=== PATIENT | female | born 1985 | race Hispanic/Latino ===

== ENCOUNTER 2019-06-23 13:50 | Emergency (ER) | payer SELFPAY ==
[2019-06-23] MEDS ORDERED: MORPHINE 4 MG/ML SYR ONE (16:09)
[2019-06-23] MEDS ORDERED: ONDANSETRON 4 MG/2 ML VIAL ONE (16:09)
[2019-06-23 16:27] LABS: Absolute Lymphocytes (CBC) 2.5 K/uL (0.7-4.9); Basophils % 1.3 % (0-1.3); Hematocrit 45.7 % (36.0-45.0); Lymphocytes % 31.5 % (15.3-44.8); MPV 9.7 fL (7.6-11.3); RBC Red Blood Cell Count 5.57 M/uL (3.86-4.86)
[2019-06-23 16:46] LABS: ALT/SGPT 32 U/L (12-78); AST/SGOT 22 U/L (15-37); Albumin 3.3 g/dL (3.4-5.0); Alkaline Phosphatase 95 U/L (45-117); BUN Blood Urea Nitrogen 11 mg/dL (7-18); Bicarbonate 26 mmol/L (21-32); Bilirubin Direct < 0.1 mg/dL (0-0.2); Bilirubin Total 0.5 mg/dL (0.2-1.0); Glucose Level 68 mg/dL (74-106); Lipase 116 U/L (73-393); Potassium 4.3 mmol/L (3.5-5.1); Protein, Total 8.3 g/dL (6.4-8.2); Sodium Level 142 mmol/L (136-145)
[2019-06-23 17:33] LABS: Urine Blood 3+ (NEG); Urine Glucose NEGATIVE (NEG)
[2019-06-23 17:34] LABS: Urine Protein 1+ (NEG); Urine pH 6.5 (5.0-7.0)
--- NOTE | 2019-06-23 19:01 | RAD REPORT ---
EXAM DESCRIPTION: US - Pelvis Complete - 06/23/2019 6:43 pm CLINICAL HISTORY: pelvic pain, vaginal bleeding Pelvic pain. COMPARISON: Pelvis Complete dated 08/14/2017 FINDINGS: The uterus is normal in size, shape and echotexture. The uterus measures 9.3 x 7.4 x 6.8 c m. The endometrial stripe measures 12 mm, normal. The right ovary has been surgically removed. The left ovary measures 3.5 x 2.5 x 2.4 cm is unremarkab le. Normal blood flow seen in left ovary. No significant pelvic ascites. IMPRESSION: Unremarkable study status post right oophorectomy.
[2019-06-23] MEDS ORDERED: KETOROLAC 30 MG/ML INJ ONE (19:27)
--- NOTE | 2019-06-23 19:39 | EDPHYS ---
Physician Documentation [facility] Name: Charity Colon Age: 34 yrs Sex: Female : 1985 Arrival Date: 06/23/2019 Time: 13:52 Bed 14 Private MD: ED Physician Geoff Saleh HPI: 06/23 15:36 This 34 yrs old Female presents to ER via Ambulatory with complaints of Back jmm Pain. 15:36 The patient presents with pain that is acute, with no known mechanism of injury. Onset: jmm The symptoms/episode began/occurred gradually, 2 day(s) ago. The pain radiates to the pelvis. Associated signs and symptoms: Pertinent positives: vaginal bleeding. Modifying factors: The patient symptoms are alleviated by nothing, the patient symptoms are aggravated by. This is a 34 year old female with a history of anemia, hypothyroidism, that presents to the ED with complaints of lower back pain which radiates to her pelvis. Patient also complains of vaginal bleeding. Patient states symptoms which a similar normally resolve after a Depo-Provera shot. Denies fever, denies vomiting. . 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 - Social history:: Smoking status: unknown. - Ebola Screening: : Patient negative for fever greater than or equal to 101.5 degrees Fahrenheit, and additional compatible Ebola Virus Disease symptoms. ROS: 15:36 Constitutional: Negative for fever, chills, and weight loss, Cardiovascular: Negative jmm for chest pain, palpitations, and edema, Respiratory: Negative for shortness of breath, cough, wheezing, and pleuritic chest pain. 15:36 Abdomen/GI: Positive for abdominal pain. 15:36 Back: Positive for pain at rest. 15:36 All other systems are negative. Exam: 15:36 Constitutional: This is a well developed, well nourished patient who is awake, alert, jmm and in no acute distress. Head/Face: atraumatic. Eyes: EOMI, no conjunctival erythema appreciated ENT: Moist Mucus Membranes Neck: Trachea midline, Supple Chest/axilla: Normal chest wall appearance and motion. Cardiovascular: Regular rate and rhythm. No edema appreciated Respiratory: Normal respirations, no respiratory distress appreciated Abdomen/GI: Non distended, soft 15:36 Skin: General appearance color normal MS/ Extremity: Moves all extremities, no obvious deformities appreciated, no edema noted to the lower extremities Neuro: Awake and alert, normal gait Psych: Behavior is normal, Mood is normal, Patient is cooperative and pleasant 15:36 Neuro: Orientation: is normal, Mentation: is normal, Memory: is normal. 15:36 Psych: Behavior/mood is pleasant, cooperative. Vital Signs: 13:54 BP 131 / 82; Pulse 75; Resp 17; Temp 97.5; Pulse Ox 97% ; Weight 111.13 kg; Height 5 sv ft. 4 in. (162.56 cm); Pain 8/10; 16:00 BP 121 / 66; Pulse 74; Resp 16 S; Pulse Ox 100% on R/A; jl7 17:58 BP 110 / 69; Pulse 72; Resp 16 S; Pulse Ox 100% on R/A; jl7 19:08 BP 106 / 63; Pulse 56; Resp 16 S; Pulse Ox 100% on R/A; jd3 13:54 Body Mass Index 42.05 (111.13 kg, 162.56 cm) sv MDM: 15:36 Patient medically screened. greg 19:35 Data reviewed: vital signs, nurses notes. Counseling: I had a detailed discussion with greg the patient and/or guardian regarding: the historical points, exam findings, and any diagnostic results supporting the discharge/admit diagnosis, lab results, radiology results, the need for outpatient follow up, to return to the emergency department if symptoms worsen or persist or if there are any questions or concerns that arise at home. ED course: Patient is alert and non toxic in appearance in the ED. Pain is relieved in the ED. Patient denies vaginal discharge. I do not suspect PID or TOA. Patient advised to follow up with PCP and otherwise given strict return precautions. Patient understood and agrees with the plan of care. . 06/23 15:42 Order name: Basic Metabolic Panel [facility] 06/23 15:42 Order name: CBC with Diff [facility] 06/23 15:42 Order name: Creatinine for Radiology [facility] 06/23 15:42 Order name: Hepatic Function [facility] 06/23 15:42 Order name: Lipase [facility] 06/23 16:37 Order name: Creatinine (Radiology Only); Complete Time: 16:40 EDMS 06/23 16:47 Order name: Basic Metabolic Panel; Complete Time: 16:47 EDMS 06/23 16:47 Order name: Liver (Hepatic) Function; Complete Time: 16:47 [facility] 06/23 16:47 Order name: Lipase; Complete Time: 16:47 [facility] 06/23 16:48 Order name: CBC with Automated Diff; Complete Time: 16:49 [facility] 06/23 17:04 Order name: Urine Dipstick--Ancillary (enter results) 06/23 17:04 Order name: Urine --Ancillary (enter results) 06/23 17:34 Order name: Urine --Ancillary; Complete Time: 17:39 [facility] 06/23 17:34 Order name: Urine Dipstick-Ancillary; Complete Time: 17:39 [facility] 06/23 15:42 Order name: IV Saline Lock; Complete Time: 16:05 [facility] 06/23 15:42 Order name: Labs collected and sent; Complete Time: 16:05 [facility] 06/23 15:42 Order name: Urine Dipstick-Ancillary (obtain specimen); Complete Time: 16:05 [facility] 06/23 15:42 Order name: Urine Test (obtain specimen); Complete Time: 16:05 [facility] 06/23 16:47 Order name: US Pelvis Complete [facility] 06/23 19:10 Order name: US; Complete Time: 19:29 EDMS Administered Medications: 16:20 Drug: morphine 4 mg Route: IVP; Site: right antecubital; jl7 16:45 Follow up: Response: No adverse reaction; Pain is decreased jl7 16:20 Drug: Zofran 4 mg Route: IVP; Site: right antecubital; jl7 16:45 Follow up: Response: No adverse reaction jl7 19:29 Drug: TORadol 30 mg Route: IVP; Site: right antecubital; jd3 19:51 Follow up: Response: No adverse reaction jd3 Disposition: 06/24 08:48 Co-signature as Attending Physician, Geoff Saleh MD I agree with the assessment and kdr plan of care. Disposition: 06/23/19 19:38 Discharged to Home. Impression: Pelvic and perineal pain, Abnormal uterine and vaginal bleeding, unspecified, Urinary tract infection, site not specified. - Condition is Stable. - Discharge Instructions: Abnormal Uterine Bleeding, Urinary Tract Infection, Adult. - Prescriptions for Ultracet 37.5- 325 mg Oral Tablet - take 1 tablet by ORAL route every 6 hours - for up to 5 days; do not exceed 8 tablets per day.; 20 tablet. Bactrim DS 800- 160 mg Oral Tablet - take 1 tablet by ORAL route every 12 hours for 10 days; 20 tablet. - Medication Reconciliation Form, Thank You Letter, Antibiotic Education, Prescription Opioid Use form. - Follow up: Private Physician; When: 2 - 3 days; Reason: Recheck today's complaints, Continuance of care, Re-evaluation by your physician. Signatures: Dispatcher [employer] Jessi Lunsford, RN RN Geoff Saunders MD MD kdr Mickail, Joel, PA PA jmm Leal, Jahala, RN RN jl7 Pardeep Baig RN RN jd3 Corrections: (The following items were deleted from the chart) 06/23 19:51 19:38 06/23/2019 19:38 Discharged to Home. Impression: Pelvic and perineal pain; jd3 Abnormal uterine and vaginal bleeding, unspecified; Urinary tract infection, site not specified. Condition is Stable. Forms are Medication Reconciliation Form, Thank You Letter, Antibiotic Education, Prescription Opioid Use. Follow up: Private Physician; When: 2 - 3 days; Reason: Recheck today's complaints, Continuance of care, Re-evaluation by your physician. greg
--- NOTE | 2019-06-23 19:39 | ER ---
Nurse's Notes [facility] Name: Charity Colon Age: 34 yrs Sex: Female : 1985 Arrival Date: 06/23/2019 Time: 13:52 Bed 14 Private MD: Diagnosis: Pelvic and perineal pain;Abnormal uterine and vaginal bleeding, unspecified;Urinary tract infection, site not specified Presentation: 06/23 13:53 Presenting complaint: Patient states: lower abd pain and low back pain and nausea since sv Monday. Denies dysuria. Transition of care: patient was not received from another setting of care. Onset of symptoms was July 01, 2019. Risk Assessment: Do you want to hurt yourself or someone else? Patient reports no desire to harm self or others. Care prior to arrival: None. 13:53 Method Of Arrival: Ambulatory sv 13:53 Acuity: TAISHA 3 sv 19:50 Initial Sepsis Screen: Does the patient meet any 2 criteria? No. Patient's initial jd3 sepsis screen is negative. Does the patient have a suspected source of infection? No. Patient's initial sepsis screen is negative. Triage Assessment: 13:55 General: Appears in no apparent distress. uncomfortable, Behavior is calm, cooperative, sv appropriate for age. Pain: Complains of pain in back and abdomen Pain currently is 8 out of 10 on a pain scale. Neuro: Level of Consciousness is awake, alert, obeys commands, Gait is steady. Respiratory: Respiratory effort is even, unlabored, Respiratory pattern is regular, symmetrical. GI: Reports lower abdominal pain, nausea. 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 - Social history:: Smoking status: unknown. - Ebola Screening: : Patient negative for fever greater than or equal to 101.5 degrees Fahrenheit, and additional compatible Ebola Virus Disease symptoms. Screenin:00 Abuse screen: Denies threats or abuse. Denies injuries from another. Nutritional jl7 screening: No deficits noted. Tuberculosis screening: No symptoms or risk factors identified. Fall Risk IV access (20 points). Total Lange Fall Scale indicates No Risk (0-24 pts). Assessment: 16:00 General: Appears in no apparent distress. uncomfortable, Behavior is calm, cooperative, jl7 appropriate for age. Pain: Complains of pain in low back area Pain radiates to suprapubic area, right lower quadrant and left lower quadrant Pain currently is 8 out of 10 on a pain scale. Quality of pain is described as crampy, Pain began 2-3 days ago. Is continuous. Neuro: Level of Consciousness is awake, alert, obeys commands. Cardiovascular: Patient's skin is warm and dry. Respiratory: Airway is patent Respiratory effort is even, unlabored, Respiratory pattern is regular, symmetrical. GI: Reports nausea. : Reports cramping, in bilateral lower quadrant(s) lower back vaginal bleeding that is bright red, brown, spotty. EENT: No signs and/or symptoms were reported regarding the EENT system. Derm: Skin is pink, warm \T\ dry. Musculoskeletal: Range of motion: intact in all extremities. 16:45 Reassessment: Patient denies pain at this time. Patient states feeling better. Patient jl7 states symptoms have improved. 17:00 Reassessment: Patient appears in no apparent distress at this time. Patient and/or jl7 family updated on plan of care and expected duration. Pain level reassessed. Patient is alert, oriented x 3, equal unlabored respirations, skin warm/dry/pink. 17:57 Reassessment: US at bedside, pt reports increased pain. jl7 19:09 Reassessment: Patient appears in no apparent distress at this time. Patient and/or jd3 family updated on plan of care and expected duration. Pain level reassessed. Patient is alert, oriented x 3, equal unlabored respirations, skin warm/dry/pink. ultrasound leaving room. awaiting results. General: Appears in no apparent distress. uncomfortable, Behavior is calm, cooperative, appropriate for age. Pain: Complains of pain in low back area and abdomen Quality of pain is described as crampy. Neuro: Level of Consciousness is awake, alert, obeys commands, Oriented to person, place, time, situation. Cardiovascular: Capillary refill < 3 seconds Patient's skin is warm and dry. Respiratory: Airway is patent Respiratory effort is even, unlabored, Respiratory pattern is regular, symmetrical. GI: Abdomen is round non-distended, Reports nausea. : Reports cramping, vaginal bleeding that is spotty. EENT: No signs and/or symptoms were reported regarding the EENT system. Derm: Skin is intact, Skin is dry, Skin is normal, Skin temperature is warm. Musculoskeletal: Circulation, motion, and sensation intact. Range of motion: intact in all extremities. 19:49 Reassessment: Patient appears in no apparent distress at this time. Patient and/or jd3 family updated on plan of care and expected duration. Pain level reassessed. Patient is alert, oriented x 3, equal unlabored respirations, skin warm/dry/pink. reported understanding of discharge instructions. even and steady gait upon discharge. Vital Signs: 13:54 BP 131 / 82; Pulse 75; Resp 17; Temp 97.5; Pulse Ox 97% ; Weight 111.13 kg; Height 5 sv ft. 4 in. (162.56 cm); Pain 8/10; 16:00 BP 121 / 66; Pulse 74; Resp 16 S; Pulse Ox 100% on R/A; jl7 17:58 BP 110 / 69; Pulse 72; Resp 16 S; Pulse Ox 100% on R/A; jl7 19:08 BP 106 / 63; Pulse 56; Resp 16 S; Pulse Ox 100% on R/A; jd3 13:54 Body Mass Index 42.05 (111.13 kg, 162.56 cm) sv ED Course: 13:52 Patient arrived in ED. rg4 13:54 Triage completed. sv 13:55 Arm band placed on Patient placed in waiting room, Patient notified of wait time. sv 15:20 John Paul Isaac PA is PHCP. [facility] 15:20 Geoff Saleh MD is Attending Physician. [facility] 16:00 Patient has correct armband on for positive identification. Placed in gown. Bed in low jl7 position. Call light in reach. Side rails up X 1. Pulse ox on. NIBP on. 16:05 Genna Clarke RN is Primary Nurse. jl7 16:15 Initial lab(s) drawn, by me, sent to lab. Inserted saline lock: 22 gauge in right kj1 antecubital area, using aseptic technique. 16:15 Urine collected: clean catch specimen, cloudy. kj1 18:38 Ultrasound completed. Patient tolerated well. sg3 19:50 No provider procedures requiring assistance completed. IV discontinued, intact, jd3 bleeding controlled, No redness/swelling at site. Pressure dressing applied. Administered Medications: 16:20 Drug: morphine 4 mg Route: IVP; Site: right antecubital; jl7 16:45 Follow up: Response: No adverse reaction; Pain is decreased jl7 16:20 Drug: Zofran 4 mg Route: IVP; Site: right antecubital; jl7 16:45 Follow up: Response: No adverse reaction jl7 19:29 Drug: TORadol 30 mg Route: IVP; Site: right antecubital; jd3 19:51 Follow up: Response: No adverse reaction jd3 Outcome: 19:38 Discharge ordered by . greg 19:50 Discharged to home ambulatory. jd3 19:50 Condition: stable 19:50 Discharge instructions given to patient, Instructed on discharge instructions, follow up and referral plans. medication usage, Demonstrated understanding of instructions, follow-up care, medications, Prescriptions given X 2. 19:51 Patient left the ED. jd3 Signatures: Jessi Reid, RN RN John Paul Isaac PA PA jmm Garcia, Rubi rg4 Genna Clarke RN RN jl7 Pardeep Baig RN RN jBharti Bowie sg3 June Guo kj1 Corrections: (The following items were deleted from the chart) 13:56 13:53 Presenting complaint: Patient states: lower abd pain and low back pain since sv Monday. Denies dysuria 13:56 13:54 Pulse 75bpm; Resp 17bpm; Pulse Ox 97%; Temp 97.5F; 111.13 kg; Height 5 ft. 4 in.; sv BMI: 42.0; Pain 8/10; sv
[2019-06-23 21:07] VITALS: TEMP 97.5
[2019-06-23 21:13] VITALS: O2SAT 100
[2019-06-23 21:20] VITALS: BP 106/63
== END 2019-06-23 19:51 | disposition home or self-care (01) ==
LOC: ER 13:50
DX: N93.9 Abnormal uterine and vaginal bleeding, unspecified (principal); N39.0 Urinary tract infection, site not specified
CPT/HCPCS: 36415; 76856; 80048; 80076; 81003; 81025; 83690; 85025; 96374; 96375; 99284; J2405

== ENCOUNTER 2021-05-07 14:15 | Emergency (ER) | payer SELFPAY ==
[2021-05-07 14:44] LABS: Urine Blood Trace-intact (Negative); Urine Glucose 3+ (Negative); Urine Protein 1+ (Negative); Urine pH 6.5 (5.0-7.0)
--- NOTE | 2021-05-07 15:05 | RAD REPORT ---
EXAM DESCRIPTION: RAD - Chest Pa And Lat (2 Views) - 05/07/2021 2:57 pm CLINICAL HISTORY: Congestion;Dyspnea, COVID positive COMPARISON: None TECHNIQUE: Frontal and lateral views of the chest were obtained. FINDINGS: The lungs are underinflated. Lateral view is significantly limited by low lung volumes and large body habitus. No dense mass or consolidation. Interstitial markings in the left base are prominent. Trachea is midl ine. Heart size is normal and central vasculature is within normal limits. No pleural effusion or pneumothorax seen. No acute bony finding noted. No aortic abnormality. IMPRESSION: Mild nonspecific interstitial opacification left lung base. No significant degree of CO VID-19 pneumonia findings identifiable. If clinically warranted, CT chest imaging could be utilized to more sensitively assess the lung paren chyma for any significant COVID pneumonia findings.
--- NOTE | 2021-05-07 16:19 | ER ---
Nurse's Notes [facility] Name: Charity Colon Age: 36 yrs Sex: Female : 1985 Arrival Date: 05/07/2021 Time: 14:19 Bed 11 Private MD: Diagnosis: Pneumonia due to SARS-associated coronavirus Presentation: 05/07 14:27 Chief complaint: Patient states: tested POSITIVE Monday for covid, i feel congestion in iw my chest and my back hurts on both side. my left ear hurts. my fever keeps going up and down with tylenol. Coronavirus screen: Client presents with at least one sign or symptom that may indicate coronavirus-19. Standard/surgical mask placed on the client. Provider contacted for isolation considerations. Client reports previous positive COVID test result. Ebola Screen: Patient denies travel to an Ebola-affected area in the 21 days before illness onset. Initial Sepsis Screen: Does the patient meet any 2 criteria? No. Patient's initial sepsis screen is negative. Does the patient have a suspected source of infection? No. Patient's initial sepsis screen is negative. Risk Assessment: Do you want to hurt yourself or someone else? Patient reports no desire to harm self or others. Note provider at bedside at this time. Onset of symptoms was May 07, 2021. 14:27 Method Of Arrival: Ambulatory iw 14:27 Acuity: TAISHA 3 iw 14:29 Note provider in exam room at this time. iw Triage Assessment: 14:28 General: Appears in no apparent distress. obese, Behavior is calm, cooperative, iw appropriate for age. Pain: Complains of pain in pain with deep breath. Historical: - Allergies: 14:28 No Known Allergies; iw - Home Meds: 14:28 None [Active]; iw - PMHx: 14:28 Anemia; Hypothyroidism; iw - Immunization history:: Adult Immunizations up to date. - Social history:: Smoking status: Patient denies any tobacco usage or history of. Screenin:31 Abuse screen: Denies threats or abuse. Nutritional screening: No deficits noted. iw Tuberculosis screening: No symptoms or risk factors identified. Fall Risk None identified. Vital Signs: 14: BP 119 / 89; Pulse 112; Resp 97; Temp 97.9(TE); Pulse Ox 97% on R/A; iw 14:31 Resp 17; iw 15:57 BP 124 / 89 RA Sitting (auto/reg); Pulse 109; Resp 18 S; Temp 100(O); Pulse Ox 96% on tr6 R/A; ED Course: 14:19 Patient arrived in ED. mr 14:28 Triage completed. iw 14:29 Arm band placed on. iw 14:57 XRAY Chest Pa And Lat (2 Views) In Process Unspecified. EDMS 15:52 Marylou Ann, RN is Primary Nurse. tr6 15:55 Chuy Adrian PA is PHCP. cp 15:55 Chuy Lancaster MD is Attending Physician. cp 15:56 PHCP role handed off by Chuy Adrian PA cp 15:56 Richard Child PA is PHCP. cp 15:56 Chuy Lancaster MD is Attending Physician. cp 16:24 No provider procedures requiring assistance completed. tr6 16:30 Patient did not have IV access during this emergency room visit. tr6 Administered Medications: No medications were administered Outcome: 16:19 Discharge ordered by . jr8 16:24 Discharged to home tr6 16:30 Condition: stable tr6 16:30 Discharge instructions given to patient, Instructed on discharge instructions, follow up and referral plans. medication usage, Demonstrated understanding of instructions, follow-up care, medications, Prescriptions given X 1. 16:31 Patient left the ED. tr6 Signatures: Dispatcher [employer] [facility] Matt Christina DelunaQuiana RN MARCELINA Richard Child PA PA Chuy Camarena PA PA Marylou Ann RN RN tr6 Corrections: (The following items were deleted from the chart) 14:37 14:27 Acuity: TAISHA 4 iw
--- NOTE | 2021-05-07 16:19 | EDPHYS ---
Physician Documentation [facility] Name: Charity Colon Age: 36 yrs Sex: Female : 1985 Arrival Date: 05/07/2021 Time: 14:19 Bed 11 Private MD: ED Physician Chuy Lancaster HPI: 05/07 16:20 This 36 yrs old Female presents to ER via Ambulatory with complaints of jr8 COVID+, Fever. 16:40 Patient diagnosed this past Monday with coronavirus. Stated that since then she has had jr8 on and off fevers and has not been feeling well. Increased shortness of breath. Came to the emergency room today for reevaluation.. Onset: The symptoms/episode began/occurred suddenly, 5 day(s) ago. Severity of symptoms: At their worst the symptoms were mild in the emergency department the symptoms are unchanged. The patient has not experienced similar symptoms in the past. The patient has not recently seen a physician. Historical: - Allergies: 14:28 No Known Allergies; iw - Home Meds: 14:28 None [Active]; iw - PMHx: 14:28 Anemia; Hypothyroidism; iw - Immunization history:: Adult Immunizations up to date. - Social history:: Smoking status: Patient denies any tobacco usage or history of. ROS: 16:40 Eyes: Negative for injury, pain, redness, and discharge, ENT: Negative for injury, jr8 pain, and discharge, Neck: Negative for injury, pain, and swelling, Cardiovascular: Negative for chest pain, palpitations, and edema, Back: Negative for injury and pain, MS/Extremity: Negative for injury and deformity, Skin: Negative for injury, rash, and discoloration, Neuro: Negative for headache, weakness, numbness, tingling, and seizure. 16:40 Constitutional: Positive for fever. 16:40 Respiratory: Positive for cough, shortness of breath. 16:40 Abdomen/GI: Positive for nausea. Exam: 16:40 Constitutional: This is a well developed, well nourished patient who is awake, alert, jr8 and in no acute distress. ENT: Nares patent. No nasal discharge, no septal abnormalities noted. Tympanic membranes are normal and external auditory canals are clear. Oropharynx with no redness, swelling, or masses, exudates, or evidence of obstruction, uvula midline. Mucous membranes moist. Neck: Trachea midline, no thyromegaly or masses palpated, and no cervical lymphadenopathy. Supple, full range of motion without nuchal rigidity, or vertebral point tenderness. No Meningismus. Cardiovascular: Regular rate and rhythm with a normal S1 and S2. No gallops, murmurs, or rubs. Normal PMI, no JVD. No pulse deficits. Respiratory: Lungs have equal breath sounds bilaterally, clear to auscultation and percussion. No rales, rhonchi or wheezes noted. No increased work of breathing, no retractions or nasal flaring. Abdomen/GI: Soft, non-tender, with normal bowel sounds. No distension or tympany. No guarding or rebound. No evidence of tenderness throughout. Back: No spinal tenderness. No costovertebral tenderness. Full range of motion. Skin: Warm, dry with normal turgor. Normal color with no rashes, no lesions, and no evidence of cellulitis. MS/ Extremity: Pulses equal, no cyanosis. Neurovascular intact. Full, normal range of motion. Neuro: Awake and alert, GCS 15, oriented to person, place, time, and situation. Cranial nerves II-XII grossly intact. Motor strength 5/5 in all extremities. Sensory grossly intact. Vital Signs: 14:27 BP 119 / 89; Pulse 112; Resp 97; Temp 97.9(TE); Pulse Ox 97% on R/A; iw 14:31 Resp 17; iw 15:57 BP 124 / 89 RA Sitting (auto/reg); Pulse 109; Resp 18 S; Temp 100(O); Pulse Ox 96% on tr6 R/A; MDM: 15:59 Patient medically screened. essence 16:16 Data reviewed: vital signs, nurses notes, lab test result(s), radiologic studies, plain jr8 films. Data interpreted: Pulse oximetry: on room air is 96 %. Interpretation: normal. Counseling: I had a detailed discussion with the patient and/or guardian regarding: the historical points, exam findings, and any diagnostic results supporting the discharge/admit diagnosis, lab results, radiology results, the need for outpatient follow up, a family practitioner, to return to the emergency department if symptoms worsen or persist or if there are any questions or concerns that arise at home. 05/07 14:44 Order name: Urine Dipstick-Ancillary; Complete Time: 15:56 EDMS 05/07 14:58 Order name: Urine --Ancillary (enter results) eb 05/07 14:30 Order name: XRAY Chest Pa And Lat (2 Views); Complete Time: 15:56 iw 05/07 14:31 Order name: Urine Dipstick-Ancillary (obtain specimen); Complete Time: 15:48 iw 05/07 14:31 Order name: Urine Test (obtain specimen); Complete Time: 15:48 iw 05/07 14:58 Order name: Urine --Ancillary; Complete Time: 15:56 EDMS Administered Medications: No medications were administered Disposition Summary: 05/07/21 16:19 Discharge Ordered Location: Home jr8 Problem: new jr8 Symptoms: have improved jr8 Condition: Stable jr8 Diagnosis - Pneumonia due to SARS-associated coronavirus jr8 Followup: jr8 - With: Private Physician - When: 1 week - Reason: Recheck today's complaints, Continuance of care, Re-evaluation by your physician Discharge Instructions: - Discharge Summary Sheet jr8 - COVID-19 jr8 Forms: - Medication Reconciliation Form jr8 - Thank You Letter jr8 - Antibiotic Education jr8 - Prescription Opioid Use jr8 Prescriptions: - Zofran 4 mg Oral Tablet - take 1 tablet by ORAL route every 12 hours As needed; 20 tablet; Refills: 0, jr8 Product Selection Permitted Addendum: 05/10/2021 06:46 Co-signature as Attending Physician, Chuy Lancaster MD I agree with the assessment and c leiva plan of care. Signatures: Dispatcher [employer] Chuy Lawrence MD MD cha Williams, Irene, RN RN iw Richard Child PA PA jr8
[2021-05-07 16:40] VITALS: BP 124/89; TEMP 100; O2SAT 96
== END 2021-05-07 16:31 | disposition home or self-care (01) ==
LOC: ER 14:15
DX: U07.1 COVID-19 (principal); J12.82 Pneumonia due to coronavirus disease 2019; E03.9 Hypothyroidism, unspecified
CPT/HCPCS: 71046; 81003; 81025; 99283

== ENCOUNTER 2021-05-10 22:20 | Inpatient (IN) | payer SELFPAY ==
[2021-05-11] MEDS ORDERED: ACETAMINOPHEN 500 MG TAB ONE ×2 (00:23→17:06)
[2021-05-11 00:24] LABS: Urine Blood 2+ (Negative); Urine Glucose 1+ (Negative); Urine Protein 3+ (Negative); Urine Specific Gravity 1.025 (1.005-1.030); Urine pH 6.5 (5.0-7.0)
[2021-05-11] MEDS ORDERED: ONDANSETRON 4 MG (ODT) TAB ONE (00:26)
[2021-05-11 00:54] LABS: Urine Specific Gravity/Preg 1.025 (1.005-1.030)
--- NOTE | 2021-05-11 01:37 | ER ---
Nurse's Notes [facility] Name: Charity Colon Age: 36 yrs Sex: Female : 1985 Arrival Date: 05/10/2021 Time: 22:25 Bed 16 Private MD: Diagnosis: Pneumonia due to SARS-associated coronavirus-covid 19 ;Hypoxemia;Obesity, unspecified;Hypomagnesemia Presentation: 05/11 00:04 Chief complaint: Patient states: she was diagnosed last Monday with Covid and now her bb O2 sats are 91% and she is feeling dizzy. Coronavirus screen: cough unrelated to allergies, difficulty breathing, muscle pain. Ebola Screen: No symptoms or risks identified at this time. Initial Sepsis Screen: Does the patient meet any 2 criteria? No. Patient's initial sepsis screen is negative. Does the patient have a suspected source of infection? No. Patient's initial sepsis screen is negative. Risk Assessment: Do you want to hurt yourself or someone else? Patient reports no desire to harm self or others. Onset of symptoms was May 09, 2021. 00:04 Method Of Arrival: Wheelchair bb 00:04 Acuity: TAISHA 2 bb Triage Assessment: 00:08 General: Appears uncomfortable, ill, obese, Behavior is anxious. Pain: Complains of bb pain in back and chest Pain currently is 10 out of 10 on a pain scale. Neuro: Level of Consciousness is awake, alert, obeys commands, Oriented to person, place, time, situation. Cardiovascular: Capillary refill < 3 seconds Patient's skin is warm and dry. Respiratory: Respiratory effort is labored, Respiratory pattern is tachypnea. GI: Reports nausea, vomiting. Derm: Skin is pink, warm \T\ dry. Musculoskeletal: Circulation, motion, and sensation intact. 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 - Social history:: Smoking status: Patient denies any tobacco usage or history of. Patient/guardian denies using alcohol, street drugs. - Family history:: not pertinent. Screenin:36 Abuse screen: Denies threats or abuse. Denies injuries from another. Nutritional ak2 screening: No deficits noted. Tuberculosis screening: No symptoms or risk factors identified. Fall Risk None identified. Assessment: 03:01 Reassessment: Patient and/or family updated on plan of care and expected duration. Pain ak2 level reassessed. General: Appears in no apparent distress. Pain: Denies pain. Neuro: No deficits noted. Cardiovascular: No deficits noted. Respiratory: No deficits noted. Vital Signs: 00:04 BP 137 / 80; Pulse 111; Resp 34 S; Temp 101.5(O); Pulse Ox 91% on R/A; Weight 122.47 kg bb (R); Height 5 ft. 4 in. (162.56 cm) (R); Pain 10/10; 03:02 BP 122 / 76; Pulse 93; Resp 18; Temp 98.8; Pulse Ox 96% on 2 lpm NC; ak2 00:04 Body Mass Index 46.34 (122.47 kg, 162.56 cm) bb ED Course: 05/10 22:25 Patient arrived in ED. es 08 00:08 Triage completed. bb 00:08 Arm band placed on Patient placed in waiting room, in a wheelchair, on oxygen, Patient bb notified of wait time. Family accompanied patient. 00:36 No provider procedures requiring assistance completed. ak2 00:45 Chuy Lancaster MD is Attending Physician. essence 01:06 XRAY Chest (1 view) In Process Unspecified. EDMS 01:33 Cortez Donaldson DO is Hospitalizing Provider. essence 01:36 Jesus Cannon MD is Hospitalizing Provider. essence 20:04 Patient has correct armband on for positive identification. Placed in gown. Bed in low ld1 position. Call light in reach. Side rails up X2. 20:04 Patient admitted, IV remains in place. intact, bleeding controlled, No redness/swelling ld1 at site. Administered Medications: 00:00 Drug: Tylenol 1000 mg Route: PO; bb 00:04 Drug: Ondansetron 4 mg Route: PO; bb 02:27 Drug: Lovenox (enoxaparin) 40 mg Route: Sub-Q; Site: left lower abdomen; ak2 02:28 Drug: Zithromax (azithromycin) 500 mg Route: IVPB; Infused Over: 1 hrs; Site: left ak2 antecubital; 02:28 Drug: Rocephin (cefTRIAXone) 1 grams Route: IV; Rate: per protocol; Site: left ak2 antecubital; 02:28 Drug: Decadron - Dexamethasone 10 mg Route: IVP; Site: left antecubital; ak2 02:28 Drug: Aspirin Chewable Tablet 162 mg Route: PO; ak2 02:32 Drug: NS 0.9% 500 ml Route: IV; Rate: bolus; Site: left antecubital; ak2 02:32 Drug: NS 0.9% 1000 ml Route: IV; Rate: 125 ml/hr; Site: left antecubital; ak2 02:32 Drug: Pepcid (famotidine) 20 mg Route: IVP; Site: left antecubital; ak2 04:36 Drug: Magnesium Sulfate 1 grams Route: IVPB; Infused Over: 1 hrs; Site: left ak2 antecubital; Outcome: 01:36 Decision to Hospitalize by Provider. essence 20:03 Admitted to Med/surg accompanied by tech, via wheelchair, room 221, Report called to barbara Luevano RN 20:03 Condition: stable 20:03 Instructed on the need for admit. 20:04 Patient left the ED. barbara Signatures: Dispatcher [employer] Chuy Lawrence MD MD cha Salyer, Edna es Ballard, Brenda, RN RN bb Dibbern, Lauren, RN RN ld1 [place], Anthony ak2
--- NOTE | 2021-05-11 01:37 | EDPHYS ---
Physician Documentation [facility] Name: Charity Colon Age: 36 yrs Sex: Female : 1985 Arrival Date: 05/10/2021 Time: 22:25 Bed 16 Private MD: ED Physician Chuy Lancaster HPI: 05/11 01:28 This 36 yrs old Female presents to ER via Wheelchair with complaints of + essence COVID 19. 01:28 The patient has shortness of breath at rest, with light activity. Onset: The essence symptoms/episode began/occurred 10 day(s) ago. Duration: The symptoms are continuous, and are steadily getting worse. The patient's shortness of breath is aggravated by coughing, exertion, light activity, supine position, talking, walking, is alleviated by elevating head, rest, sitting up, application of supplemental oxygen. The patient or guardian reports airway noise, cough, difficulty breathing, flu symptoms. Modifying factors: The symptoms are alleviated by elevating head, remaining still, the symptoms are aggravated by activity, lying flat, talking. Associated signs and symptoms: Pertinent positives: non-productive cough, dizziness, fever, nausea, Pertinent negatives: hemoptysis. Severity of symptoms: At their worst the symptoms were moderate in the emergency department the symptoms are unchanged. Associated signs and symptoms: Pertinent positives: chest pain, sore throat. Severity of symptoms: Pain is currently a 2 / 10. 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 - Social history:: Smoking status: Patient denies any tobacco usage or history of. Patient/guardian denies using alcohol, street drugs. - Family history:: not pertinent. ROS: 01:28 Constitutional: Negative for fever, chills, and weight loss, Eyes: Negative for injury, essence pain, redness, and discharge, ENT: Negative for injury, pain, and discharge, Neck: Negative for injury, pain, and swelling, Cardiovascular: Negative for chest pain, palpitations, and edema, Abdomen/GI: Negative for abdominal pain, nausea, vomiting, diarrhea, and constipation, Back: Negative for injury and pain, : Negative for injury, bleeding, discharge, and swelling, MS/Extremity: Negative for injury and deformity, Skin: Negative for injury, rash, and discoloration, Neuro: Negative for headache, weakness, numbness, tingling, and seizure, Psych: Negative for depression, anxiety, suicide ideation, homicidal ideation, and hallucinations, Allergy/Immunology: Negative for hives, rash, and allergies, Endocrine: Negative for neck swelling, polydipsia, polyuria, polyphagia, and marked weight changes, Hematologic/Lymphatic: Negative for swollen nodes, abnormal bleeding, and unusual bruising. :28 Respiratory: Positive for cough, shortness of breath, at rest. Exam: :28 Constitutional: This is a well developed, well nourished patient who is awake, alert, essence and in no acute distress. Head/Face: Normocephalic, atraumatic. Eyes: Pupils equal round and reactive to light, extra-ocular motions intact. Lids and lashes normal. Conjunctiva and sclera are non-icteric and not injected. Cornea within normal limits. Periorbital areas with no swelling, redness, or edema. ENT: Nares patent. No nasal discharge, no septal abnormalities noted. Tympanic membranes are normal and external auditory canals are clear. Oropharynx with no redness, swelling, or masses, exudates, or evidence of obstruction, uvula midline. Mucous membranes moist. Neck: Trachea midline, no thyromegaly or masses palpated, and no cervical lymphadenopathy. Supple, full range of motion without nuchal rigidity, or vertebral point tenderness. No Meningismus. Chest/axilla: Normal chest wall appearance and motion. Nontender with no deformity. No lesions are appreciated. Cardiovascular: Regular rate and rhythm with a normal S1 and S2. No gallops, murmurs, or rubs. Normal PMI, no JVD. No pulse deficits. Abdomen/GI: Soft, non-tender, with normal bowel sounds. No distension or tympany. No guarding or rebound. No evidence of tenderness throughout. Back: No spinal tenderness. No costovertebral tenderness. Full range of motion. Skin: Warm, dry with normal turgor. Normal color with no rashes, no lesions, and no evidence of cellulitis. MS/ Extremity: Pulses equal, no cyanosis. Neurovascular intact. Full, normal range of motion. Neuro: Awake and alert, GCS 15, oriented to person, place, time, and situation. Cranial nerves II-XII grossly intact. Motor strength 5/5 in all extremities. Sensory grossly intact. Cerebellar exam normal. Normal gait. Psych: Awake, alert, with orientation to person, place and time. Behavior, mood, and affect are within normal limits. 01:28 Respiratory: mild respiratory distress is noted, Respirations: labored breathing, that is mild, Breath sounds: decreased breath sounds, that are moderate, are located in both bases, rhonchi, that are mild, are scattered, stridor, is not appreciated, + upper airway congestion. Respiratory rate: 34 02:11 ECG was reviewed by the Attending Physician. [facility] Vital Signs: 00:04 BP 137 / 80; Pulse 111; Resp 34 S; Temp 101.5(O); Pulse Ox 91% on R/A; Weight 122.47 kg bb (R); Height 5 ft. 4 in. (162.56 cm) (R); Pain 10/10; 03:02 BP 122 / 76; Pulse 93; Resp 18; Temp 98.8; Pulse Ox 96% on 2 lpm NC; ak2 00:04 Body Mass Index 46.34 (122.47 kg, 162.56 cm) bb MDM: 00:45 Patient medically screened. [facility] 01:32 Differential diagnosis: Anemia Anxiety Reaction Bronchitis CHF exacerbation, Chronic essence Obstructive Pulmonary Disease bronchitis, flu, URI, pneumonia, Psychogenic pulmonary edema, Pulmonary Embolism reactive airway disease, Sepsis Unstable Angina. Antibiotic administration: Rocephin and Zithromax given. The patient's Wells Deep Vein Thrombosis Score was calculated as follows: Heart Rate >100 BPM (1.5 Pts) Imm/Surg in last 4 wks (1.5 Pts) Total Score: 3-6 Pts - Mod Risk. The patient's pulmonary embolism risk score was calculated as follows: the patients heart rate is greater than 100 beats per minute (1.5 Pts) patient has experienced immobilization or surgery in the last four weeks (1.5 Pts) Total Score: 3-6 points. This patient was found to be at moderate risk for a pulmonary embolism by using the Well's assessment criteria. Immunization status:. Data reviewed: vital signs, nurses notes, lab test result(s), EKG, radiologic studies, CT scan, plain films. 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 Test interpretation: by ED physician or midlevel provider: ECG, plain radiologic studies. Counseling: I had a detailed discussion with the patient and/or guardian regarding: the historical points, exam findings, and any diagnostic results supporting the discharge/admit diagnosis, lab results, radiology results, the need for further work-up and treatment in the hospital. 05/11 00:24 Order name: Urine Dipstick-Ancillary; Complete Time: 01:07 EDMS 05/11 00:39 Order name: Urine --Ancillary (enter results); Complete Time: 01:07 tt3 05/11 00:51 Order name: Basic Metabolic Panel; Complete Time: 03:55 [facility] 05/11 00:51 Order name: CBC with Diff; Complete Time: 03:55 [facility] 05/11 00:51 Order name: LFT's; Complete Time: 03:55 [facility] 05/11 00:51 Order name: Magnesium; Complete Time: 03:55 [facility] 05/11 00:51 Order name: NT PRO-BNP; Complete Time: 03:55 [facility] 05/11 00:51 Order name: PT-INR; Complete Time: 02:35 [facility] 05/11 00:51 Order name: Troponin (emerg Dept Use Only); Complete Time: 03:55 [facility] 05/11 00:51 Order name: Type And Screen [facility] 05/11 00:51 Order name: Ferritin; Complete Time: 03:55 [facility] 05/11 00:51 Order name: CRP; Complete Time: 03:55 [facility] 05/11 01:07 Order name: Blood Culture Adult (2) [facility] 05/11 01:07 Order name: Lactate [facility] 05/11 00:51 Order name: XRAY Chest (1 view) [facility] 05/11 01:07 Order name: CT Chest For PE Angio [facility] 05/11 03:10 Order name: CBC Smear Scan; Complete Time: 03:55 EDND 05/11 13:47 Order name: CT EDND 05/11 00:51 Order name: EKG; Complete Time: 00:52 [facility] 05/11 00:51 Order name: Cardiac monitoring [facility] 05/11 00:51 Order name: EKG - Nurse/Tech [facility] 05/11 00:51 Order name: IV Saline Lock [facility] 05/11 00:51 Order name: Labs collected and sent [facility] 05/11 00:51 Order name: O2 Per Protocol [facility] 05/11 00:51 Order name: O2 Sat Monitoring [facility] 05/11 02:08 Order name: Misc. Order: recollect lactate, was not on ice; Complete Time: 17:39 la1 EC:11 Rate is 96 beats/min. Rhythm is regular. QRS [place] is Normal. [place] interval is normal. QRS essence interval is normal. QT interval is normal. No Q waves. T waves are Inverted in leads II, III, aVF, V4, V5, V6. Interpreted by me. Reviewed by me. Administered Medications: 00:00 Drug: Tylenol 1000 mg Route: PO; bb 00:04 Drug: Ondansetron 4 mg Route: PO; bb 02:27 Drug: Lovenox (enoxaparin) 40 mg Route: Sub-Q; Site: left lower abdomen; ak2 02:28 Drug: Zithromax (azithromycin) 500 mg Route: IVPB; Infused Over: 1 hrs; Site: left ak2 antecubital; 02:28 Drug: Rocephin (cefTRIAXone) 1 grams Route: IV; Rate: per protocol; Site: left ak2 antecubital; 02:28 Drug: Decadron - Dexamethasone 10 mg Route: IVP; Site: left antecubital; ak2 02:28 Drug: Aspirin Chewable Tablet 162 mg Route: PO; ak2 02:32 Drug: NS 0.9% 500 ml Route: IV; Rate: bolus; Site: left antecubital; ak2 02:32 Drug: NS 0.9% 1000 ml Route: IV; Rate: 125 ml/hr; Site: left antecubital; ak2 02:32 Drug: Pepcid (famotidine) 20 mg Route: IVP; Site: left antecubital; ak2 04:36 Drug: Magnesium Sulfate 1 grams Route: IVPB; Infused Over: 1 hrs; Site: left ak2 antecubital; Disposition Summary: 05/11/21 01:36 Hospitalization Ordered Hospitalization Status: Inpatient Admission essence Provider: Jesus Cannon cha Condition: Fair essence Problem: new essence Symptoms: have improved essence Bed/Room Type: Standard essence Location: Telemetry/MedSurg (Inpatient)(05/11/21 18:25) bd Room Assignment: 417(05/11/21 18:25) bd Diagnosis - Pneumonia due to SARS-associated coronavirus - covid 19 essence - Hypoxemia essence - Obesity, unspecified essence - Hypomagnesemia essence Forms: - Medication Reconciliation Form essence - SBAR form essence Signatures: Dispatcher [employer] EDJazz Magallon Martha, RN RN mw Anderson, Corey, MD MD cha Ballard, Brenda, RN RN bb Attema, Lee, KEY BED INSTALLER-C KEY BED INSTALLER-Cla1 Stiven Estevez2 Corrections: (The following items were deleted from the chart) 02:09 01:36 Telemetry/MedSurg (Inpatient) [facility] mw 02:09 01:36 essence mw 18:25 02:09 BR ER HOLD mw bd 18:25 02:09 ERHOLD- mw bd
[2021-05-11] MEDS ORDERED: ASPIRIN 81 MG CHEWABLE TABLET ONE (02:03)
[2021-05-11] MEDS ORDERED: dexAMETHasone 10 MG/ML VIAL ONE (02:03)
[2021-05-11] MEDS ORDERED: NA CHLORIDE 0.9% 100 ML ONE (02:04)
[2021-05-11] MEDS ORDERED: NA CHLORIDE 0.9% 250 ML ONE (02:04)
[2021-05-11] MEDS ORDERED: AZITHROMYCIN 500 MG INJ IVPB ONE (02:04)
[2021-05-11] MEDS ORDERED: NA CHLORIDE 0.9% 1,000 ML ONE (02:04)
[2021-05-11] MEDS ORDERED: CEFTRIAXONE/SWI 1gm 1 GM/10 ML SYR ONE (02:05)
[2021-05-11] MEDS ORDERED: FAMOTIDINE 20 MG/2 ML VIAL IV ONE (02:05)
[2021-05-11] MEDS ORDERED: ENOXAPARIN 40 MG/0.4 ML SQ ONE ×2 (02:05→17:30)
[2021-05-11 02:21] LABS: Protime INR 1.17
[2021-05-11 02:23] LABS: Absolute Lymphocytes (CBC) 0.4 K/uL (0.7-4.9); Basophils % 0.2 % (0-1.3); Hematocrit 43.4 % (36.0-45.0); Lymphocytes % 12.9 % (15.3-44.8); MPV 9.9 fL (7.6-11.3); RBC Red Blood Cell Count 5.25 M/uL (3.86-4.86)
--- NOTE | 2021-05-11 02:36 | P.HP ---
Certification for Inpatient Patient admitted to: Inpatient With expected LOS: >2 Midnights Patient will require the following post-hospital care: None Practitioner: I am a practitioner with admitting privileges, knowledge of patient current condition, hospital course, and medical plan of care. Services: Services provided to patient in accordance with Admission requirements found in Title 42 Section 412.3 of the Code of Federal Regulations <JunaidNishant - Last Filed: 05/11/21 02:33> Patient History Date of Service: 05/11/21 Reason for admission: COVID-19 pneumonia History of Present Illness: 36-year-old female with history of anemia, obesity presents emergency department for shortness of breath. Patient reports testing positive for Covid on 05/03/2021. Patient with significant worsening in chest x-ray since previous emergency department visit. Patient valuated the emergency department labs significant for white blood cell count 2.9 platelet count 93, chemistry pending, patient hypoxic on room air saturating in the 80s currently tolerate nasal cannula by 2 to 3 L at this time. ED provider wishes to admit for further evaluation and management of COVID-19 pneumonia. 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 - Family History Father -: Hypertension, Diabetes Mother -: Hypertension, Diabetes - Social History Smoking Status: Never smoker Alcohol use: No CD- Drugs: No Caffeine use: Yes Place of Residence: Home <Nishant Quiroga - Last Filed: 05/11/21 02:33> Date of Service: 05/11/21 <Jesus Cannon - Last Filed: 05/11/21 16:03> Allergies No Known Allergies Allergy (Unverified 01/02/17 21:18) Review of Systems 10-point ROS is otherwise unremarkable General: Fever, Weakness, Malaise Respiratory: Cough, Dry, Shortness of Breath <Nishant Quiroga - Last Filed: 05/11/21 02:33> Physical Examination - Physical Exam General: Alert, In no apparent distress, Oriented x3, Obese HEENT: Atraumatic, PERRLA, Mucous membr. moist/pink, EOMI, Sclerae nonicteric Neck: Supple, 2+ carotid pulse no bruit, No LAD, Without JVD or thyroid abnormality Respiratory: Diminished Cardiovascular: Regular rate/rhythm, Normal S1 S2 Gastrointestinal: Normal bowel sounds, No tenderness Musculoskeletal: No tenderness Integumentary: No rashes Neurological: Normal gait, Normal speech, Normal strength at 5/5 x4 extr, Normal tone, Normal affect Lymphatics: No axilla or inguinal lymphadenopathy - Studies Laboratory Data (last 24 hrs) 05/11/21 01:45: PT 13.5 H, INR 1.17 05/11/21 01:45: WBC 2.90 L, Hgb 14.5, Hct 43.4, Plt Count 93 L* <Nishant Quiroga - Last Filed: 05/11/21 02:33> - Studies Laboratory Data (last 24 hrs) 05/11/21 01:45: PT 13.5 H, INR 1.17 05/11/21 01:45: WBC 2.90 L, Hgb 14.5, Hct 43.4, Plt Count 93 L* 05/11/21 01:45: Sodium 134 L, Potassium 3.8, BUN 9, Creatinine 0.74, Glucose 302 H, Magnesium 1.6 L, Total Bilirubin 0.6, AST 74 H, ALT 69, Alkaline Phosphatase 80 Microbiology Data (last 24 hrs): 05/11/21 02:00 Blood - Blood Anaerobic Blood Culture - Final 05/11/21 02:00 Blood - Blood Anaerobic Blood Culture - Final <Jesus Cannon - Last Filed: 05/11/21 16:03> Assessment and Plan - Plan Assessment: Acute hypoxic respiratory failure secondary to COVID-19 pneumonia complicated with obesity, thrombocytopenia, leukopenia Plan: Acute hypoxic respiratory failure secondary to COVID-19 pneumonia complicated with obesity, thrombocytopenia, leukopenia: Continue with IV steroids, supplemental oxygen as needed, daily room air saturations, room air saturations for home oxygen. Pulmonology consulted, daily labs. Ivermectin, additional therapeutics per pulmonology. DVT PPX: SCDs given thrombocytopenia Code status: Full Discharge Plan: Home Plan to discharge in: 48 Hours - Advance Directives Does patient have a Living Will: No Does patient have a Durable POA for Healthcare: No - Code Status/Comfort Care Code Status Assessed: Yes (Full code) Critical Care: No Time Spent Managing Pts Care (In Minutes): 55 <Nishant Quiroga - Last Filed: 05/11/21 02:33> - Plan Patient seen and examined this morning. Agree with plan of care as noted above patient feels like she is breathing more comfortably with nasal cannula elevated ferritin/crp wean o2 as tolerated likely dc tomorrow with home o2 <Jesus Cannon - Last Filed: 05/11/21 16:03>
[2021-05-11 02:37] LABS: ALT/SGPT 69 U/L (12-78); AST/SGOT 74 U/L (15-37); Albumin 2.7 g/dL (3.4-5.0); Alkaline Phosphatase 80 U/L (45-117); BUN Blood Urea Nitrogen 9 mg/dL (7-18); Bicarbonate 23 mmol/L (21-32); Bilirubin Direct 0.3 mg/dL (0-0.2); Bilirubin Total 0.6 mg/dL (0.2-1.0); Ferritin 994.2 ng/mL (8-388); Glucose Level 302 mg/dL (74-106); Magnesium 1.6 mg/dL (1.8-2.4); NT PRO-BNP 17 pg/mL (<125); Potassium 3.8 mmol/L (3.5-5.1); Protein, Total 7.4 g/dL (6.4-8.2); Sodium Level 134 mmol/L (136-145); Troponin (Emerg Dept Use Only) < 0.02 ng/mL (0.0-0.045)
[2021-05-11 03:10] LABS: Blood Morphology Comment NOT SEEN (NOT SEEN); Platelet Estimate DECR; White Blood Cell Scan OK (OK)
[2021-05-11] MEDS ORDERED: IVERMECTIN 3 MG TABLET PO SCH (04:01)
[2021-05-11] MEDS ORDERED: MAGNESIUM SULFATE 1 gm IVPB 1 GM/100 ML BAG IV ONE (05:00)
--- NOTE | 2021-05-11 07:24 | RAD REPORT ---
EXAM DESCRIPTION: RAD - Chest Single View - 05/11/2021 1:06 am CLINICAL HISTORY: COUGH COMPARISON: Chest Pa And Lat (2 Views) dated 05/07/2021; Chest For Pe Angio dated 05/11/2021 FINDINGS: Moderate patchy bilateral airspace disease. The heart size is within normal limits.No acut e osseous abnormality. No significant pleural effusions or pneumothorax. IMPRESSION: Moderate bilateral airspace disease concerning for multifocal pneumonia, including Covid -19.
--- NOTE | 2021-05-11 07:37 | P.CNS ---
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 - Family History Father Medical History: Hypertension, Diabetes Mother Medical History: Hypertension, Diabetes - Social History Smoking Status: Current some day smoker Alcohol use: No CD- Drugs: No Caffeine use: Yes Place of Residence: Home Review of Systems General: Weakness Respiratory: Shortness of Breath Physical Examination Temp Pulse Resp BP Pulse Ox 98.3 F 79 16 110/75 95 05/11/21 06:00 05/11/21 06:00 05/11/21 06:00 05/11/21 06:00 05/11/21 06:00 General: Alert, Oriented x3, Mild distress Laboratory Data (last 24 hrs) 05/11/21 01:45: PT 13.5 H, INR 1.17 05/11/21 01:45: WBC 2.90 L, Hgb 14.5, Hct 43.4, Plt Count 93 L* 05/11/21 01:45: Sodium 134 L, Potassium 3.8, BUN 9, Creatinine 0.74, Glucose 302 H, Magnesium 1.6 L, Total Bilirubin 0.6, AST 74 H, ALT 69, Alkaline Phosphatase 80 - Problems (1) Pneumonia due to COVID-19 virus Current Visit: Yes Status: Acute Plan: Age 36 AW COVID Penumoniasat satisfactory on NC O2/ pancytopenic/ stable/ poss DC today O2 ordered/ Add Lovenox and aspirin
[2021-05-11] MEDS ORDERED: POTASSIUM 25 MEQ EFFERV TAB PO ONE (08:59)
[2021-05-11] MEDS ORDERED: ENOXAPARIN 40 MG/0.4 ML SQ SCH (09:00)
[2021-05-11] MEDS: IVERMECTIN 3 MG TABLET PO SCH (10:00)
[2021-05-11] MEDS: VITAMIN D 1000 UNIT TAB PO SCH (10:00)
[2021-05-11] MEDS: METHYLPREDNISOLONE 40 MG INJ IV SCH ×3 (10:00→21:17)
[2021-05-11] MEDS: ASPIRIN EC 81 MG TAB PO SCH (10:00)
[2021-05-11] MEDS: ASCORBIC ACID 500 MG TABLET PO SCH ×4 (10:00→21:17)
[2021-05-11] MEDS: THIAMINE HCL 100 MG TABLET PO SCH (10:00)
[2021-05-11] MEDS: ZINC SULFATE 220 MG CAP PO SCH (10:00)
[2021-05-11] MEDS ORDERED: ASPIRIN EC 81 MG TAB PO ONE (10:21)
[2021-05-11] MEDS ORDERED: ASCORBIC ACID 500 MG TABLET ONE ×3 (10:21→17:30)
[2021-05-11] MEDS ORDERED: ZINC SULFATE 220 MG CAP ONE (10:21)
[2021-05-11] MEDS ORDERED: THIAMINE HCL 100 MG TABLET ONE (10:21)
[2021-05-11] MEDS ORDERED: VITAMIN D 1000 UNIT TAB ONE (10:21)
[2021-05-11] MEDS ORDERED: POTASSIUM 25 MEQ EFFERV TAB ONE (10:22)
[2021-05-11] MEDS ORDERED: METHYLPREDNISOLONE 125 MG INJ ONE (10:22)
--- NOTE | 2021-05-11 11:16 | EKG ---
Test Date: 2021-05-11 Test Time: 02:08:50 Scrub Nurse: MEASUREMENT RESULTS: Intervals: Rate: 96 VT: 148 QRSD: 88 QT: 360 QTc: 454 [place]: P: 22 VT: 148 QRS: 16 T: -27 INTERPRETIVE STATEMENTS: Normal sinus rhythm Cannot rule out Inferior infarct, age undetermined Cannot rule out Anterior infarct, age undetermined Abnormal ECG No previous ECG available for comparison Electronically Signed On 05-11-21 11:16:15 CDT by Meliton Coleman
--- NOTE | 2021-05-11 13:45 | RAD REPORT ---
EXAM DESCRIPTION: CT - Chest For Pe Angio - 05/11/2021 6:26 am CLINICAL HISTORY: Cough;Dyspnea COMPARISON: None Available. TECHNIQUE: CTA of the chest obtained following the uncomplicated intravenous administration of iodin ated contrast. 3-D/MIP reformatted images of the chest available for evaluation. This exam was perfor med according to our departmental dose-optimization program, which includes automated exposure contro l, adjustment of the mA and/or kV according to patient size and/or use of iterative reconstruction [place]. FINDINGS: Chest: Pulmonary arteries: Contrast bolus is adequate.No filling defects identified in the pulmonary arterie s to suggest pulmonary embolus. Evaluation of the subsegmental pulmonary arterial branches is subopti mal due to significant respiratory motion artifact. Thyroid: No abnormalities of the visualized thyroid. Great Vessels: Great vessels have normal anatomic configuration. Thoracic Aorta: No abnormalities of the thoracic aorta identified. Heart: No cardiomegaly, significant pericardial effusion, or coronary artery atherosclerosis Lymph Nodes: No enlarged mediastinal lymph nodes identified. Esophagus: No abnormalities of the esophagus identified. Other: No additional findings. Lungs: Multifocal bilateral groundglass opacities. Pleura: No pleural effusion or pneumothorax. Trachea/Airways: No abnormalities of the visualized trachea or airways. Bones: Degenerative endplate spondylosis of the spine. Upper Abdomen: Limited images of the upper abdomen demonstrate no definite abnormalities of visualize d portions of the gallbladder, pancreas, spleen, adrenal glands, or kidneys. Decreased density of t he liver. IMPRESSION: 1. No pulmonary embolism. 2. Multifocal bilateral groundglass opacities. Commonly reported imaging features of viral pneumoni a are present. Other processes such as influenza pneumonia and organizing pneumonia, as can be seen w ith drug toxicity and connective tissue disease, can cause a similar imaging pattern. 3. Hepatic steatosis. Electronically signed by: Rory Jones 05/11/2021 4:35 AM CDT Due to temporary technical issues with the PACS/Fluency reporting system, reports are being signed by the in house radiologist without review as a courtesy to ensure prompt reporting. The interpreting r adiologist is fully responsible for the content of the report.
[2021-05-11] MEDS ORDERED: ONDANSETRON 4 MG/2 ML VIAL ONE (13:48)
[2021-05-11] MEDS ORDERED: METHYLPREDNISOLONE 40 MG INJ ONE (13:48)
[2021-05-11] MEDS ORDERED: BENZONATATE 100 MG CAP PO ONE (13:48)
[2021-05-11] MEDS: LORAZEPAM 0.5 MG TABLET PO PRN (14:00)
[2021-05-11] MEDS: ONDANSETRON 4 MG/2 ML VIAL IV PRN (14:01)
[2021-05-11] MEDS: BENZONATATE 100 MG CAP PO PRN (14:01)
[2021-05-11] MEDS ORDERED: LORazepam 2 MG/ML VIAL ONE (14:16)
[2021-05-11] MEDS: ACETAMINOPHEN 500 MG TAB PO PRN ×2 (16:42→21:18)
[2021-05-11] MEDS: ENOXAPARIN 40 MG/0.4 ML SQ SCH (17:00)
[2021-05-12 05:17] VITALS: BMI 46.3
[2021-05-12] MEDS: ONDANSETRON 4 MG/2 ML VIAL IV PRN (06:23)
[2021-05-12 06:24] LABS: Basophils % 0.1 % (0-1.3); Hematocrit 44.3 % (36.0-45.0); MPV 9.3 fL (7.6-11.3); RBC Red Blood Cell Count 5.26 M/uL (3.86-4.86)
[2021-05-12 06:42] LABS: Albumin 2.5 g/dL (3.4-5.0); Bilirubin Total 0.5 mg/dL (0.2-1.0); Ferritin 1566.7 ng/mL (8-388); Magnesium 2.3 mg/dL (1.8-2.4); Potassium 4.4 mmol/L (3.5-5.1); Protein, Total 7.3 g/dL (6.4-8.2); Thyroid Stimulating Hormone 1.98 uIU/mL (0.360-3.740)
[2021-05-12] MEDS ORDERED: D50W 25 GM/50 ML SYRINGE IV PRN (07:38)
[2021-05-12] MEDS ORDERED: GLUCAGON 1 MG/VIAL IM PRN (07:38)
[2021-05-12] MEDS ORDERED: INSULIN GLARGINE 100 UNITS/ML SQ SCH (08:00)
[2021-05-12] MEDS: INSULIN -REGULAR HUMAN 50 UNIT/0.5 ML ML SQ SCH ×4 (09:43→20:55)
[2021-05-12] MEDS: ASPIRIN EC 81 MG TAB PO SCH (09:45)
[2021-05-12] MEDS: VITAMIN D 1000 UNIT TAB PO SCH (09:45)
[2021-05-12] MEDS: ZINC SULFATE 220 MG CAP PO SCH (09:46)
[2021-05-12] MEDS: METHYLPREDNISOLONE 125 MG INJ IV SCH ×3 (09:46→20:54)
[2021-05-12] MEDS: THIAMINE HCL 100 MG TABLET PO SCH (09:46)
[2021-05-12] MEDS: ASCORBIC ACID 500 MG TABLET PO SCH ×4 (09:46→20:54)
[2021-05-12] MEDS: BENZONATATE 100 MG CAP PO PRN ×2 (13:01→20:54)
--- NOTE | 2021-05-12 14:49 | P.PN ---
Subjective Date of Service: 05/12/21 Chief Complaint: COVID-19 pneumonia Subjective: Worsening (needing higher levels of oxygen today, with some nausea when sitting up as well.) Review of Systems 10-point ROS is otherwise unremarkable Physical Examination - Vital Signs Temperature: 97.5 F Blood Pressure: 122/71 Pulse: 85 Respirations: 36 Pulse Ox (%): 93 - Studies Microbiology Data (last 24 hrs): 05/11/21 02:00 Blood - Blood Anaerobic Blood Culture - Final 05/11/21 02:00 Blood - Blood Anaerobic Blood Culture - Final Assessment & Plan Physician Review Additional Text: Physical Exam General: alert, mild distress HEENT: normal conjunctiva, sclera anicteric Respiratory: mildly labored respirations Cardiovascular: Regular rate/rhythm, Normal S1 S2 Gastrointestinal: soft, nontender, nondistended Integumentary: No rashes Assessment and Plan Acute hypoxic respiratory failure secondary to COVID-19 pneumonia complicated with obesity, thrombocytopenia, leukopenia Diabetes mellitus, type 2, new diagnosis continue IV steroids, supplemental oxygen, vitamins ivermectin ordered pulm consulted ferritin increasing, CRP improved ordered baricitinib per pulm recs pt with worsening covid symptoms today hyperglycemia secondary to steroid use A1c >8, consistent with diabetes, pt denies any history but has not seen physician in many years start insulin sliding scale, add lantus, titrate as needed for better control Code: full Dispo: anticipate dc home in >2days Time Spent Managing Pts Care (In Minutes): 35
[2021-05-12] MEDS: BARICITINIB 2 MG TABLET PO SCH (15:52)
[2021-05-12] MEDS: ENOXAPARIN 40 MG/0.4 ML SQ SCH (16:12)
[2021-05-12] MEDS ORDERED: INSULIN -REGULAR HUMAN 50 UNIT/0.5 ML ML IV ONE (16:46)
[2021-05-12] MEDS: MELATONIN 5 MG TABLET PO PRN (20:54)
[2021-05-13] MEDS: LORAZEPAM 0.5 MG TABLET PO PRN ×2 (02:20→20:40)
[2021-05-13 07:23] LABS: Absolute Lymphocytes (CBC) 0.6 K/uL (0.7-4.9); Basophils % 0.1 % (0-1.3); Hematocrit 42.6 % (36.0-45.0); Lymphocytes % 8.7 % (15.3-44.8); MPV 9.4 fL (7.6-11.3); RBC Red Blood Cell Count 5.05 M/uL (3.86-4.86)
[2021-05-13] MEDS: INSULIN -REGULAR HUMAN 50 UNIT/0.5 ML ML SQ SCH ×5 (07:30→20:40)
[2021-05-13] MEDS ORDERED: INSULIN GLARGINE 100 UNITS/ML SQ SCH (08:00)
[2021-05-13 08:02] LABS: Albumin 2.5 g/dL (3.4-5.0); Bilirubin Total 0.7 mg/dL (0.2-1.0); C-Reactive Protein 46.2 mg/L (<3.00); Ferritin 980.9 ng/mL (8-388); Magnesium 2.3 mg/dL (1.8-2.4); Potassium 4.2 mmol/L (3.5-5.1); Protein, Total 7.1 g/dL (6.4-8.2)
--- NOTE | 2021-05-13 08:36 | P.PN ---
Subjective Date of Service: 05/13/21 Chief Complaint: COVID-19 pneumonia Subjective: No new changes (on 15L nonrebreather, minimal appetite, coughing episodes, dyspnea/hypoxic with minimal ambulation) Review of Systems 10-point ROS is otherwise unremarkable Physical Examination - Vital Signs Temperature: 97.2 F Blood Pressure: 116/73 Pulse: 79 Respirations: 27 Pulse Ox (%): 93 Assessment & Plan Physician Review Additional Text: Physical Exam General: alert, mild distress HEENT: normal conjunctiva, sclera anicteric Respiratory: mildly labored respirations Cardiovascular: Regular rate/rhythm, Normal S1 S2 Gastrointestinal: soft, nontender, nondistended Integumentary: No rashes Assessment and Plan Acute hypoxic respiratory failure secondary to COVID-19 pneumonia complicated with obesity, thrombocytopenia, leukopenia Diabetes mellitus, type 2, new diagnosis continue IV steroids, supplemental oxygen, vitamins, ivermectin pulm consulted inflammatory markers elevated ordered baricitinib per pulm recs hyperglycemia secondary to steroid use and new diagnosis of DM2 A1c >8, consistent with diabetes, pt denies any history but has not seen physician in many years insulin sliding scale change lantus to 70/30, increase dose, pt without insurance Code: full Dispo: anticipate dc home in >2days Time Spent Managing Pts Care (In Minutes): 35
[2021-05-13] MEDS: IVERMECTIN 3 MG TABLET PO SCH (08:44)
[2021-05-13] MEDS: BARICITINIB 2 MG TABLET PO SCH (08:44)
[2021-05-13] MEDS: ASCORBIC ACID 500 MG TABLET PO SCH ×4 (08:45→19:37)
[2021-05-13] MEDS: METHYLPREDNISOLONE 125 MG INJ IV SCH ×3 (08:45→19:36)
[2021-05-13] MEDS: ZINC SULFATE 220 MG CAP PO SCH (08:45)
[2021-05-13] MEDS: THIAMINE HCL 100 MG TABLET PO SCH (08:45)
[2021-05-13] MEDS: VITAMIN D 1000 UNIT TAB PO SCH (08:45)
[2021-05-13] MEDS: ASPIRIN EC 81 MG TAB PO SCH (08:45)
--- NOTE | 2021-05-13 09:03 | RAD REPORT ---
EXAM DESCRIPTION: RAD - Chest Single View - 05/13/2021 4:52 am CLINICAL HISTORY: covid, worsening hypoxia Chest pain. COMPARISON: Chest Single View dated 05/11/2021; Chest Pa And Lat (2 Views) dated 05/07/2021 FINDINGS: Portable technique limits examination quality. Since 05/11/2021, there has been mild improvement in bilateral lung aeration seen. Extensive pulmonar y opacities bilaterally persists. The heart is upper limit normal in size. No displaced fractures. IMPRESSION: Mild improvement in lung aeration is present since prior study.
[2021-05-13] MEDS ORDERED: GLUCAGON 1 MG/VIAL IM PRN ×2 (11:54→13:27)
[2021-05-13] MEDS ORDERED: D50W 25 GM/50 ML SYRINGE IV PRN ×2 (11:54→13:27)
[2021-05-13] MEDS ORDERED: INSULIN -REGULAR HUMAN 50 UNIT/0.5 ML ML IV ONE ×2 (11:54→13:27)
[2021-05-13 14:10] LABS: Blood Morphology Comment NOT SEEN (NOT SEEN); Platelet Estimate ADEQ; White Blood Cell Scan OK (OK)
[2021-05-13] MEDS: ENOXAPARIN 40 MG/0.4 ML SQ SCH (16:16)
--- NOTE | 2021-05-13 16:22 | P.PN ---
Subjective Date of Service: 05/13/21 Chief Complaint: COVID-19 pneumonia Subjective: Improving (Feeling better / O2 improving) Review of Systems Respiratory: Shortness of Breath Physical Examination - Vital Signs Temperature: 97.2 F Blood Pressure: 116/73 Pulse: 79 Respirations: 27 Pulse Ox (%): 93 - Physical Exam General: Alert, In no apparent distress, Oriented x3, Cooperative Assessment & Plan - Problems (Diagnosis) (1) Pneumonia due to COVID-19 virus Current Visit: Yes Status: Acute Plan: Resp failure improving,on NRB con to wean/ on Max therapy
[2021-05-13] MEDS ORDERED: INSULIN 70/30 100 UNITS/ML SQ SCH (16:30)
[2021-05-13] MEDS: MELATONIN 5 MG TABLET PO PRN (20:40)
[2021-05-14] MEDS: ONDANSETRON 4 MG/2 ML VIAL IV PRN ×2 (02:33→07:33)
[2021-05-14] MEDS ORDERED: INSULIN -REGULAR HUMAN 50 UNIT/0.5 ML ML IV ONE (04:53)
[2021-05-14] MEDS: INSULIN -REGULAR HUMAN 50 UNIT/0.5 ML ML SQ SCH ×5 (05:28→20:01)
[2021-05-14 06:21] LABS: Absolute Lymphocytes (CBC) 0.6 K/uL (0.7-4.9); Basophils % 0.1 % (0-1.3); Hematocrit 43.3 % (36.0-45.0); Lymphocytes % 7.7 % (15.3-44.8); MPV 9.3 fL (7.6-11.3); RBC Red Blood Cell Count 5.15 M/uL (3.86-4.86)
[2021-05-14 06:52] LABS: ALT/SGPT 37 U/L (12-78); AST/SGOT 26 U/L (15-37); Albumin 2.4 g/dL (3.4-5.0); Alkaline Phosphatase 68 U/L (45-117); BUN Blood Urea Nitrogen 21 mg/dL (7-18); Bicarbonate 27 mmol/L (21-32); Bilirubin Total 0.6 mg/dL (0.2-1.0); Glucose Level 379 mg/dL (74-106); Potassium 3.9 mmol/L (3.5-5.1); Protein, Total 6.8 g/dL (6.4-8.2); Sodium Level 139 mmol/L (136-145)
[2021-05-14 06:53] LABS: Ferritin 659.5 ng/mL (8-388); Magnesium 2.3 mg/dL (1.8-2.4)
[2021-05-14] MEDS: INSULIN 70/30 100 UNITS/ML SQ SCH ×2 (07:49→16:25)
[2021-05-14] MEDS: ASPIRIN EC 81 MG TAB PO SCH (08:17)
[2021-05-14] MEDS: THIAMINE HCL 100 MG TABLET PO SCH (08:18)
[2021-05-14] MEDS: ASCORBIC ACID 500 MG TABLET PO SCH ×4 (08:18→20:01)
[2021-05-14] MEDS: VITAMIN D 1000 UNIT TAB PO SCH (08:18)
[2021-05-14] MEDS: ZINC SULFATE 220 MG CAP PO SCH (08:18)
[2021-05-14] MEDS: BARICITINIB 2 MG TABLET PO SCH (08:18)
[2021-05-14] MEDS: METHYLPREDNISOLONE 125 MG INJ IV SCH ×2 (08:18→13:18)
--- NOTE | 2021-05-14 09:02 | P.PN ---
Subjective Date of Service: 05/14/21 Chief Complaint: COVID-19 pneumonia Subjective: Improving (feels better, still very SOB/KURTZ, on 15L, slight nausea and thirsty. glc still elevated. increased insulin) Review of Systems 10-point ROS is otherwise unremarkable Physical Examination - Vital Signs Temperature: 96.8 F Blood Pressure: 132/80 Pulse: 75 Respirations: 24 Pulse Ox (%): 97 Assessment & Plan Physician Review Additional Text: Physical Exam General: alert, NAD HEENT: normal conjunctiva, sclera anicteric Respiratory: mildly labored respirations on 15 L Cardiovascular: Regular rate/rhythm, Normal S1 S2 Gastrointestinal: soft, nontender, nondistended Integumentary: No rashes Assessment and Plan Acute hypoxic respiratory failure secondary to COVID-19 pneumonia complicated with obesity, thrombocytopenia, leukopenia Diabetes mellitus, type 2, new diagnosis continue IV steroids, supplemental oxygen, vitamins, ivermectin decrease steroid dose to 40q8h pulm consulted inflammatory markers improved baricitinib per pulm recs hyperglycemia secondary to steroid use and new diagnosis of DM2 A1c >8, consistent with diabetes, pt denies any history but has not seen physician in many years insulin sliding scale changed lantus to 70/30, increase dose, pt without insurance; decreased dose of steroids as well which should help Code: full Dispo: anticipate dc home in >2days Time Spent Managing Pts Care (In Minutes): 35
[2021-05-14] MEDS ORDERED: POTASSIUM CL SA 10 MEQ TAB PO ONE (10:18)
[2021-05-14] MEDS: ENOXAPARIN 40 MG/0.4 ML SQ SCH (16:25)
[2021-05-14] MEDS: LORAZEPAM 0.5 MG TABLET PO PRN (20:01)
[2021-05-14] MEDS: METHYLPREDNISOLONE 40 MG INJ IV SCH (20:01)
[2021-05-14] MEDS: MELATONIN 5 MG TABLET PO PRN (20:01)
[2021-05-15 07:02] LABS: BUN Blood Urea Nitrogen 23 mg/dL (7-18); Bicarbonate 30 mmol/L (21-32); C-Reactive Protein 8.34 mg/L (<3.00); Ferritin 508.4 ng/mL (8-388); Glucose Level 397 mg/dL (74-106); Potassium 4.9 mmol/L (3.5-5.1); Sodium Level 138 mmol/L (136-145)
[2021-05-15] MEDS: INSULIN 70/30 100 UNITS/ML SQ SCH ×3 (07:30→16:27)
--- NOTE | 2021-05-15 07:56 | P.PN ---
Subjective Date of Service: 05/15/21 Chief Complaint: COVID-19 pneumonia Subjective: No new changes (feeling about the same, no new complaints, appetite ok) Review of Systems 10-point ROS is otherwise unremarkable Physical Examination - Vital Signs Temperature: 98.9 F Blood Pressure: 136/70 Pulse: 62 Respirations: 20 Pulse Ox (%): 94 Assessment & Plan Physician Review Additional Text: Physical Exam General: alert, NAD HEENT: normal conjunctiva, sclera anicteric Respiratory: mildly labored respirations on 15 L Cardiovascular: Regular rate/rhythm, Normal S1 S2 Gastrointestinal: soft, nontender, nondistended Assessment and Plan Acute hypoxic respiratory failure secondary to COVID-19 pneumonia complicated with obesity, thrombocytopenia, leukopenia Diabetes mellitus, type 2, new diagnosis Steroid-induced hyperglycemia continue IV steroids, supplemental oxygen, vitamins, ivermectin decrease steroid dose to 40q8h on 05/14 pulm consulted, on baricitinib inflammatory markers improved hyperglycemia secondary to steroid use and new diagnosis of DM2 A1c >8, consistent with diabetes, pt denies any history but has not seen physician in many years insulin sliding scale changed lantus to 70/30, increase dose, pt without insurance Code: full Dispo: anticipate dc home in ~3 days Time Spent Managing Pts Care (In Minutes): 35
[2021-05-15] MEDS: THIAMINE HCL 100 MG TABLET PO SCH (08:05)
[2021-05-15] MEDS: ZINC SULFATE 220 MG CAP PO SCH (08:05)
[2021-05-15] MEDS: BARICITINIB 2 MG TABLET PO SCH (08:05)
[2021-05-15] MEDS: ASCORBIC ACID 500 MG TABLET PO SCH ×4 (08:05→21:46)
[2021-05-15] MEDS: VITAMIN D 1000 UNIT TAB PO SCH (08:05)
[2021-05-15] MEDS: INSULIN -REGULAR HUMAN 50 UNIT/0.5 ML ML SQ SCH ×4 (08:06→21:44)
[2021-05-15] MEDS: ASPIRIN EC 81 MG TAB PO SCH (08:06)
[2021-05-15] MEDS: METHYLPREDNISOLONE 40 MG INJ IV SCH ×3 (08:07→21:46)
--- NOTE | 2021-05-15 11:17 | P.PN ---
Subjective Date of Service: 05/15/21 Chief Complaint: COVID-19 pneumonia Subjective: Improving (Doign better no complaints) Review of Systems Respiratory: Shortness of Breath Physical Examination - Vital Signs Temperature: 96.6 F Blood Pressure: 131/76 Pulse: 81 Respirations: 28 Pulse Ox (%): 88 - Physical Exam General: Alert, In no apparent distress, Oriented x3, Cooperative Assessment & Plan - Problems (Diagnosis) (1) Pneumonia due to COVID-19 virus Current Visit: Yes Status: Acute Plan: Improving Change to Xarelto/CXRY improving
[2021-05-15] MEDS: ACETAMINOPHEN 500 MG TAB PO PRN ×2 (12:02→21:45)
[2021-05-15] MEDS: ONDANSETRON 4 MG/2 ML VIAL IV PRN (12:26)
--- NOTE | 2021-05-15 13:02 | RAD REPORT ---
EXAM DESCRIPTION: RAD - Chest Single View - 05/15/2021 12:20 pm CLINICAL HISTORY: Pneumonia COMPARISON: Chest Single View dated 05/13/2021; Chest Single View dated 05/11/2021; Chest Pa And Lat (2 Views) dated 05/07/2021 FINDINGS: Mild improvement in widespread bilateral airspace disease compared with 05/13/2021. The he art size is within normal limits.No acute osseous abnormality. No significant pleural effusions or pn eumothorax. IMPRESSION: Mild improvement in widespread bilateral airspace opacities consistent with multifocal p neumonia.
[2021-05-15] MEDS: RIVAROXABAN 20 MG TABLET PO SCH (16:03)
[2021-05-15] MEDS: MELATONIN 5 MG TABLET PO PRN (21:45)
[2021-05-15] MEDS: BENZONATATE 100 MG CAP PO PRN (21:45)
--- NOTE | 2021-05-16 07:42 | RAD REPORT ---
EXAM DESCRIPTION: RAD - Chest Single View - 05/16/2021 5:48 am CLINICAL HISTORY: penumonia COMPARISON: Chest Single View dated 05/15/2021; Chest Single View dated 05/13/2021; Chest Single View da bri 05/11/2021; Chest Pa And Lat (2 Views) dated 05/07/2021; Chest For Pe Angio dated 05/11/2021 FINDINGS: Decreased lung volumes with otherwise similar widespread bilateral airspace disease. The h eart size is within normal limits.No acute osseous abnormality. No significant pleural effusions or p neumothorax. IMPRESSION: Decreased lung volume but otherwise similar bilateral widespread airspace disease consis tent with multifocal pneumonia.
[2021-05-16] MEDS: METHYLPREDNISOLONE 40 MG INJ IV SCH ×3 (08:30→21:38)
[2021-05-16] MEDS: ASCORBIC ACID 500 MG TABLET PO SCH ×4 (08:30→21:38)
[2021-05-16] MEDS: ASPIRIN EC 81 MG TAB PO SCH (08:30)
[2021-05-16] MEDS: BARICITINIB 2 MG TABLET PO SCH (08:30)
[2021-05-16] MEDS: THIAMINE HCL 100 MG TABLET PO SCH (08:30)
[2021-05-16] MEDS: VITAMIN D 1000 UNIT TAB PO SCH (08:30)
[2021-05-16] MEDS: ZINC SULFATE 220 MG CAP PO SCH (08:30)
[2021-05-16] MEDS: INSULIN -REGULAR HUMAN 50 UNIT/0.5 ML ML SQ SCH ×4 (08:31→21:38)
[2021-05-16] MEDS: INSULIN 70/30 100 UNITS/ML SQ SCH ×2 (08:32→16:48)
[2021-05-16] MEDS: ACETAMINOPHEN 500 MG TAB PO PRN (09:31)
[2021-05-16] MEDS: RIVAROXABAN 20 MG TABLET PO SCH (16:29)
--- NOTE | 2021-05-16 18:20 | P.PN ---
Subjective Date of Service: 05/16/21 Chief Complaint: COVID-19 pneumonia Subjective: Improving (feels slightly better, wants to go home, but then states her o2 sat drops quickly with movement and when eating) Review of Systems 10-point ROS is otherwise unremarkable Physical Examination - Vital Signs Temperature: 97.1 F Blood Pressure: 97/61 Pulse: 86 Respirations: 20 Pulse Ox (%): 90 - Studies Microbiology Data (last 24 hrs): 05/11/21 02:00 Blood - Blood Aerobic Blood Culture - Final No growth in 5 days. 05/11/21 02:00 Blood - Blood Anaerobic Blood Culture - Final 05/11/21 02:00 Blood - Blood Aerobic Blood Culture - Final No growth in 5 days. 05/11/21 02:00 Blood - Blood Anaerobic Blood Culture - Final Assessment & Plan Physician Review Additional Text: Physical Exam General: alert, NAD HEENT: normal conjunctiva, sclera anicteric Respiratory: mildly labored respirations on 15 L Cardiovascular: Regular rate/rhythm, Normal S1 S2 Gastrointestinal: soft, nontender, nondistended Neuro: normal affect, normal speech, moves all extremities Assessment and Plan Acute hypoxic respiratory failure secondary to COVID-19 pneumonia complicated with obesity, thrombocytopenia, leukopenia Diabetes mellitus, type 2, new diagnosis Steroid-induced hyperglycemia continue IV steroids, supplemental oxygen, vitamins, ivermectin decreased steroid dose to 40q8h on 05/14 pulm consulted, on baricitinib inflammatory markers improved, recheck in AM CXR unchanged hyperglycemia secondary to steroid use and new diagnosis of DM2 A1c >8, consistent with diabetes, pt denies any history but has not seen physician in many years aggressive insulin sliding scale changed lantus to 70/30, increased Code: full Dispo: anticipate dc home in ~3 days Time Spent Managing Pts Care (In Minutes): 40
[2021-05-16] MEDS: MELATONIN 5 MG TABLET PO PRN (21:38)
[2021-05-16] MEDS: BENZONATATE 100 MG CAP PO PRN (21:38)
[2021-05-17 05:25] LABS: Absolute Lymphocytes (CBC) 0.8 K/uL (0.7-4.9); Basophils % 0.1 % (0-1.3); Hematocrit 39.8 % (36.0-45.0); Lymphocytes % 7.6 % (15.3-44.8); MPV 9.6 fL (7.6-11.3); RBC Red Blood Cell Count 4.64 M/uL (3.86-4.86)
[2021-05-17 05:49] LABS: ALT/SGPT 23 U/L (12-78); AST/SGOT 9 U/L (15-37); Albumin 2.3 g/dL (3.4-5.0); Alkaline Phosphatase 55 U/L (45-117); BUN Blood Urea Nitrogen 19 mg/dL (7-18); Bicarbonate 29 mmol/L (21-32); Bilirubin Total 0.7 mg/dL (0.2-1.0); Ferritin 393.9 ng/mL (8-388); Glucose Level 233 mg/dL (74-106); Magnesium 2.1 mg/dL (1.8-2.4); Potassium 3.9 mmol/L (3.5-5.1); Protein, Total 5.7 g/dL (6.4-8.2); Sodium Level 138 mmol/L (136-145)
[2021-05-17 05:54] LABS: C-Reactive Protein < 2.90 mg/L (<3.00)
--- NOTE | 2021-05-17 06:51 | P.PN ---
Subjective Date of Service: 05/17/21 Chief Complaint: COVID-19 pneumonia Subjective: Improving (feeling better, reports some light spotting / blood clots, states she is due for depo injection) Review of Systems 10-point ROS is otherwise unremarkable Physical Examination - Vital Signs Temperature: 97.6 F Blood Pressure: 111/67 Pulse: 69 Respirations: 20 Pulse Ox (%): 91 - Studies Microbiology Data (last 24 hrs): 05/11/21 02:00 Blood - Blood Aerobic Blood Culture - Final No growth in 5 days. 05/11/21 02:00 Blood - Blood Anaerobic Blood Culture - Final 05/11/21 02:00 Blood - Blood Aerobic Blood Culture - Final No growth in 5 days. 05/11/21 02:00 Blood - Blood Anaerobic Blood Culture - Final Assessment & Plan Physician Review Additional Text: Physical Exam General: alert, NAD HEENT: normal conjunctiva, sclera anicteric Respiratory: non labored respirations on 15 L Cardiovascular: Regular rate/rhythm, Normal S1 S2 Gastrointestinal: soft, nontender, nondistended Neuro: normal affect, normal speech, moves all extremities Assessment and Plan Acute hypoxic respiratory failure secondary to COVID-19 pneumonia complicated with obesity, thrombocytopenia, leukopenia Diabetes mellitus, type 2, new diagnosis Steroid-induced hyperglycemia continue IV steroids, supplemental oxygen, vitamins, ivermectin pulm consulted, on baricitinib inflammatory markers improved CXR unchanged hyperglycemia secondary to steroid use and new diagnosis of DM2 A1c >8, consistent with diabetes, pt denies any history but has not seen physician in many years aggressive insulin sliding scale changed lantus to 70/30, increased; pt is uninsured and would be more affordable on discharge started menstrual period, states has h/o bleeding, currently it is typical for her. Missed her recent depo injection due to hospitalization will check if available while inpatient monitor H7H Code: full Dispo: anticipate dc home in ~2-3 days Time Spent Managing Pts Care (In Minutes): 35
[2021-05-17] MEDS: VITAMIN D 1000 UNIT TAB PO SCH (08:20)
[2021-05-17] MEDS: ZINC SULFATE 220 MG CAP PO SCH (08:21)
[2021-05-17] MEDS: ASPIRIN EC 81 MG TAB PO SCH (08:21)
[2021-05-17] MEDS: THIAMINE HCL 100 MG TABLET PO SCH (08:21)
[2021-05-17] MEDS: BARICITINIB 2 MG TABLET PO SCH (08:21)
[2021-05-17] MEDS: GLUCERNA SHAKE 237 ML CAN PO SCH ×2 (08:21→20:28)
[2021-05-17] MEDS: ASCORBIC ACID 500 MG TABLET PO SCH ×4 (08:21→20:29)
[2021-05-17] MEDS: METHYLPREDNISOLONE 40 MG INJ IV SCH ×3 (08:22→20:28)
[2021-05-17] MEDS: INSULIN -REGULAR HUMAN 50 UNIT/0.5 ML ML SQ SCH ×4 (08:56→20:28)
[2021-05-17] MEDS: INSULIN 70/30 100 UNITS/ML SQ SCH ×2 (08:57→16:24)
[2021-05-17] MEDS ORDERED: POTASSIUM CL SA 10 MEQ TAB PO ONE ×2 (09:00)
[2021-05-17 09:09] LABS: Platelet Estimate ADEQ
[2021-05-17 09:10] LABS: Blood Morphology Comment NOT SEEN (NOT SEEN); Hypersegmented Neutrophils PRESENT
[2021-05-17] MEDS: RIVAROXABAN 20 MG TABLET PO SCH (16:25)
[2021-05-17] MEDS: BENZONATATE 100 MG CAP PO PRN (20:29)
[2021-05-17] MEDS: MELATONIN 5 MG TABLET PO PRN (20:29)
--- NOTE | 2021-05-17 21:03 | P.PN ---
Subjective Date of Service: 05/17/21 Chief Complaint: COVID-19 pneumonia Subjective: Ambulating, Improving (Doign better on 6 l NC) Review of Systems Respiratory: Shortness of Breath Physical Examination - Vital Signs Temperature: 97.6 F Blood Pressure: 111/67 Pulse: 69 Respirations: 20 Pulse Ox (%): 91 - Physical Exam General: Alert, In no apparent distress, Oriented x3, Cooperative Assessment & Plan - Problems (Diagnosis) (1) Pneumonia due to COVID-19 virus Current Visit: Yes Status: Acute Plan: Doing well poss DC home am
[2021-05-18 05:48] LABS: MPV 9.7 fL (7.6-11.3); RBC Red Blood Cell Count 4.48 M/uL (3.86-4.86)
[2021-05-18 06:05] LABS: BUN Blood Urea Nitrogen 17 mg/dL (7-18); Bicarbonate 29 mmol/L (21-32); Glucose Level 267 mg/dL (74-106); Potassium 4.3 mmol/L (3.5-5.1); Sodium Level 136 mmol/L (136-145)
[2021-05-18] MEDS: ASCORBIC ACID 500 MG TABLET PO SCH ×5 (08:33→20:46)
[2021-05-18] MEDS: BARICITINIB 2 MG TABLET PO SCH (08:33)
[2021-05-18] MEDS: VITAMIN D 1000 UNIT TAB PO SCH (08:33)
[2021-05-18] MEDS: THIAMINE HCL 100 MG TABLET PO SCH (08:33)
[2021-05-18] MEDS: INSULIN -REGULAR HUMAN 50 UNIT/0.5 ML ML SQ SCH ×4 (08:34→20:46)
[2021-05-18] MEDS: ZINC SULFATE 220 MG CAP PO SCH (08:34)
[2021-05-18] MEDS: INSULIN 70/30 100 UNITS/ML SQ SCH ×2 (08:34→16:21)
[2021-05-18] MEDS: METHYLPREDNISOLONE 40 MG INJ IV SCH ×3 (08:35→20:46)
[2021-05-18] MEDS: GLUCERNA SHAKE 237 ML CAN PO SCH ×2 (08:36→20:47)
[2021-05-18] MEDS: ASPIRIN EC 81 MG TAB PO SCH (08:38)
[2021-05-18] MEDS: RIVAROXABAN 20 MG TABLET PO SCH (16:17)
--- NOTE | 2021-05-18 18:32 | P.PN ---
Subjective Date of Service: 05/18/21 Chief Complaint: COVID-19 pneumonia Patient content L oxygen by nasal canula. Not much change from yesterday. Physical Examination - Vital Signs Temperature: 97.3 F Blood Pressure: 100/53 Pulse: 91 Respirations: 20 Pulse Ox (%): 88 - Physical Exam General: In no apparent distress HEENT: Other (Oxygen by nasal cannula.) Neck: JVD not distended Respiratory: Other (Nonlabored breathing) Cardiovascular: No edema, Regular rate/rhythm, Normal S1 S2 Gastrointestinal: Soft and benign, Non-distended Musculoskeletal: No swelling Integumentary: No rashes Neurological: Normal strength at 5/5 x4 extr Assessment And Plan Physician Review Additional Text: Assessment and Plan Acute hypoxic respiratory failure secondary to COVID-19 pneumonia complicated with obesity, thrombocytopenia, leukopenia Diabetes mellitus, type 2, new diagnosis Steroid-induced hyperglycemia continue IV steroids, supplemental oxygen, vitamins. pulm is following. on baricitinib hyperglycemia secondary to steroid use and new diagnosis of DM2 A1c >8, consistent with diabetes, pt denies any history but has not seen physician in many years Insulin sliding scale. Titrate Novolin 70/30. Missed her recent depo injection due to hospitalization Code: full
[2021-05-18] MEDS: MELATONIN 5 MG TABLET PO PRN (21:19)
[2021-05-18] MEDS: ZOLPIDEM TARTRATE 5 MG TABLET PO PRN (22:27)
[2021-05-19] MEDS: ZINC SULFATE 220 MG CAP PO SCH (08:19)
[2021-05-19] MEDS: VITAMIN D 1000 UNIT TAB PO SCH (08:19)
[2021-05-19] MEDS: ASCORBIC ACID 500 MG TABLET PO SCH ×4 (08:19→21:24)
[2021-05-19] MEDS: ASPIRIN EC 81 MG TAB PO SCH (08:19)
[2021-05-19] MEDS: THIAMINE HCL 100 MG TABLET PO SCH (08:19)
[2021-05-19] MEDS: METHYLPREDNISOLONE 40 MG INJ IV SCH ×3 (08:19→21:24)
[2021-05-19] MEDS: GLUCERNA SHAKE 237 ML CAN PO SCH ×2 (08:19→21:00)
[2021-05-19] MEDS: INSULIN 70/30 100 UNITS/ML SQ SCH ×2 (08:23→17:10)
[2021-05-19] MEDS: INSULIN -REGULAR HUMAN 50 UNIT/0.5 ML ML SQ SCH ×4 (08:23→21:24)
[2021-05-19] MEDS: BARICITINIB 2 MG TABLET PO SCH (08:24)
[2021-05-19] MEDS: ACETAMINOPHEN 500 MG TAB PO PRN (13:58)
[2021-05-19] MEDS: RIVAROXABAN 20 MG TABLET PO SCH (17:11)
--- NOTE | 2021-05-19 17:26 | P.PN ---
Subjective Date of Service: 05/19/21 Chief Complaint: COVID-19 pneumonia Patient tolerating 10 L oxygen by nasal cannula. No change from yesterday. Physical Examination - Vital Signs Temperature: 96.5 F Blood Pressure: 104/57 Pulse: 93 Respirations: 28 Pulse Ox (%): 89 - Physical Exam General: Alert, In no apparent distress HEENT: Mucous membr. moist/pink Neck: JVD not distended Respiratory: Other (Nonlabored breathing) Cardiovascular: Regular rate/rhythm, Normal S1 S2 Gastrointestinal: Soft and benign, Non-distended Musculoskeletal: No swelling Integumentary: No rashes Neurological: Normal strength at 5/5 x4 extr Assessment And Plan Physician Review Additional Text: Assessment and Plan Acute hypoxic respiratory failure secondary to COVID-19 pneumonia complicated with obesity, thrombocytopenia, leukopenia Diabetes mellitus, type 2, new diagnosis Steroid-induced hyperglycemia continue IV steroids, supplemental oxygen, vitamins. pulm is following. on baricitinib hyperglycemia secondary to steroid use and new diagnosis of DM2 A1c >8, consistent with diabetes. Insulin sliding scale. Titrate Novolin 70/30.
[2021-05-19] MEDS: ZOLPIDEM TARTRATE 5 MG TABLET PO PRN (21:23)
[2021-05-20 07:28] LABS: BUN Blood Urea Nitrogen 14 mg/dL (7-18); Bicarbonate 32 mmol/L (21-32); Glucose Level 163 mg/dL (74-106); Potassium 3.9 mmol/L (3.5-5.1); Sodium Level 142 mmol/L (136-145)
[2021-05-20] MEDS: INSULIN 70/30 100 UNITS/ML SQ SCH ×2 (08:42→16:08)
[2021-05-20] MEDS: INSULIN -REGULAR HUMAN 50 UNIT/0.5 ML ML SQ SCH ×4 (08:42→21:00)
[2021-05-20] MEDS: ASCORBIC ACID 500 MG TABLET PO SCH ×4 (08:43→21:00)
[2021-05-20] MEDS: METHYLPREDNISOLONE 40 MG INJ IV SCH ×3 (08:43→21:00)
[2021-05-20] MEDS: VITAMIN D 1000 UNIT TAB PO SCH (08:43)
[2021-05-20] MEDS: ZINC SULFATE 220 MG CAP PO SCH (08:43)
[2021-05-20] MEDS: THIAMINE HCL 100 MG TABLET PO SCH (08:43)
[2021-05-20] MEDS: ASPIRIN EC 81 MG TAB PO SCH (08:43)
[2021-05-20] MEDS: BARICITINIB 2 MG TABLET PO SCH (08:44)
[2021-05-20] MEDS: GLUCERNA SHAKE 237 ML CAN PO SCH ×2 (08:44→21:00)
[2021-05-20 10:02] LABS: Absolute Lymphocytes (CBC) 0.7 K/uL (0.7-4.9); Basophils % 0.2 % (0-1.3); Hematocrit 37.6 % (36.0-45.0); MPV 9.4 fL (7.6-11.3); RBC Red Blood Cell Count 4.28 M/uL (3.86-4.86)
--- NOTE | 2021-05-20 12:47 | P.PN ---
Subjective Date of Service: 05/20/21 Chief Complaint: COVID-19 pneumonia states she is breathing a bit better. denies any n/v/d Review of Systems 10-point ROS is otherwise unremarkable Physical Examination - Vital Signs Temperature: 96.3 F Blood Pressure: 103/55 Pulse: 75 Respirations: 20 Pulse Ox (%): 93 Assessment And Plan Physician Review Additional Text: Physical Exam General: Alert, In no apparent distress HEENT: Clear conjunctiva, EOMI Respiratory: Nonlabored respirations, on 10L NC Cardiovascular: Regular rate/rhythm Gastrointestinal: Soft and benign, Non-tender Musculoskeletal: No swelling Neurological: Normal speech Assessment and Plan Acute hypoxic respiratory failure secondary to COVID-19 pneumonia complicated with obesity, thrombocytopenia, leukopenia Diabetes mellitus, type 2, new diagnosis Steroid-induced hyperglycemia continue IV steroids, supplemental oxygen, vitamins. pulm is following. on baricitinib hyperglycemia secondary to steroid use and new diagnosis of DM2 A1c >8, consistent with diabetes. Insulin sliding scale. Titrate Novolin 70/30. VTE prophylaxis: brody Time Spent Managing PTS Care (In Minutes): 35
[2021-05-20] MEDS ORDERED: POTASSIUM CL SA 10 MEQ TAB PO ONE (13:00)
[2021-05-20] MEDS: RIVAROXABAN 20 MG TABLET PO SCH (16:09)
[2021-05-21 06:38] LABS: BUN Blood Urea Nitrogen 20 mg/dL (7-18); Bicarbonate 28 mmol/L (21-32); Glucose Level 339 mg/dL (74-106); Potassium 4.7 mmol/L (3.5-5.1); Sodium Level 136 mmol/L (136-145)
[2021-05-21] MEDS: ASCORBIC ACID 500 MG TABLET PO SCH ×4 (08:01→21:12)
[2021-05-21] MEDS: METHYLPREDNISOLONE 40 MG INJ IV SCH ×3 (08:01→21:12)
[2021-05-21] MEDS: BENZONATATE 100 MG CAP PO PRN ×2 (08:01→21:13)
[2021-05-21] MEDS: VITAMIN D 1000 UNIT TAB PO SCH (08:01)
[2021-05-21] MEDS: ZINC SULFATE 220 MG CAP PO SCH (08:01)
[2021-05-21] MEDS: THIAMINE HCL 100 MG TABLET PO SCH (08:01)
[2021-05-21] MEDS: ASPIRIN EC 81 MG TAB PO SCH (08:01)
[2021-05-21] MEDS: BARICITINIB 2 MG TABLET PO SCH (08:01)
[2021-05-21] MEDS: INSULIN -REGULAR HUMAN 50 UNIT/0.5 ML ML SQ SCH ×4 (08:02→21:12)
[2021-05-21] MEDS: INSULIN 70/30 100 UNITS/ML SQ SCH ×2 (08:02→16:43)
[2021-05-21] MEDS: GLUCERNA SHAKE 237 ML CAN PO SCH ×2 (08:03→21:13)
--- NOTE | 2021-05-21 13:42 | P.PN ---
Subjective Date of Service: 05/21/21 Chief Complaint: COVID-19 pneumonia Patient's oxygen requirement is improving. She is currently tolerating 4 L of oxygen by nasal cannula at rest. Physical Examination - Vital Signs Temperature: 97 F Blood Pressure: 96/57 Pulse: 89 Respirations: 24 Pulse Ox (%): 89 - Physical Exam General: In no apparent distress Neck: JVD not distended Respiratory: Other (Nonlabored breathing) Cardiovascular: Regular rate/rhythm, Normal S1 S2 Gastrointestinal: Soft and benign, Non-distended Musculoskeletal: No swelling Integumentary: No rashes Neurological: Normal strength at 5/5 x4 extr Assessment And Plan Physician Review Additional Text: Assessment and Plan Acute hypoxic respiratory failure secondary to COVID-19 pneumonia complicated with obesity, thrombocytopenia, leukopenia Diabetes mellitus, type 2, new diagnosis Steroid-induced hyperglycemia continue IV steroids, supplemental oxygen, vitamins. pulm is following. on baricitinib hyperglycemia secondary to steroid use and new diagnosis of DM2 A1c >8, consistent with diabetes. Insulin sliding scale. Titrate Novolin 70/30. Wean oxygen as tolerated. VTE prophylaxis: xarelto
[2021-05-21] MEDS: RIVAROXABAN 20 MG TABLET PO SCH (16:42)
[2021-05-21] MEDS: MELATONIN 5 MG TABLET PO PRN (21:12)
[2021-05-22 05:49] LABS: Absolute Lymphocytes (CBC) 0.4 K/uL (0.7-4.9); Basophils % 0.1 % (0-1.3); Hematocrit 39.2 % (36.0-45.0); Lymphocytes % 2.2 % (15.3-44.8); MPV 8.8 fL (7.6-11.3); RBC Red Blood Cell Count 4.55 M/uL (3.86-4.86)
[2021-05-22 05:59] LABS: BUN Blood Urea Nitrogen 21 mg/dL (7-18); Bicarbonate 29 mmol/L (21-32); Glucose Level 318 mg/dL (74-106); Potassium 4.6 mmol/L (3.5-5.1); Sodium Level 138 mmol/L (136-145)
[2021-05-22] MEDS: BARICITINIB 2 MG TABLET PO SCH (08:52)
[2021-05-22] MEDS: ASPIRIN EC 81 MG TAB PO SCH (08:52)
[2021-05-22] MEDS: THIAMINE HCL 100 MG TABLET PO SCH (08:52)
[2021-05-22] MEDS: BENZONATATE 100 MG CAP PO PRN (08:52)
[2021-05-22] MEDS: ASCORBIC ACID 500 MG TABLET PO SCH ×4 (08:52→20:21)
[2021-05-22] MEDS: METHYLPREDNISOLONE 40 MG INJ IV SCH ×3 (08:52→20:22)
[2021-05-22] MEDS: VITAMIN D 1000 UNIT TAB PO SCH (08:52)
[2021-05-22] MEDS: INSULIN 70/30 100 UNITS/ML SQ SCH ×2 (08:53→16:36)
[2021-05-22] MEDS: INSULIN -REGULAR HUMAN 50 UNIT/0.5 ML ML SQ SCH ×4 (08:53→20:21)
[2021-05-22] MEDS: GLUCERNA SHAKE 237 ML CAN PO SCH ×2 (08:53→20:22)
[2021-05-22 08:54] LABS: Blood Morphology Comment NOT SEEN (NOT SEEN); Platelet Estimate INCR; White Blood Cell Scan OK (OK)
[2021-05-22] MEDS: ZINC SULFATE 220 MG CAP PO SCH (08:54)
[2021-05-22] MEDS: ACETAMINOPHEN 500 MG TAB PO PRN (12:42)
--- NOTE | 2021-05-22 12:51 | P.PN ---
Subjective Date of Service: 05/22/21 Chief Complaint: COVID-19 pneumonia Patient's oxygen requirement is fluctuating. She was on 4 L yesterday, she is back to 10 L today. She denies any complain. Physical Examination - Vital Signs Temperature: 100.2 F Blood Pressure: 127/74 Pulse: 89 Respirations: 22 Pulse Ox (%): 90 - Physical Exam General: Alert, In no apparent distress Neck: JVD not distended Respiratory: Other (Nonlabored breathing) Cardiovascular: No edema, Regular rate/rhythm Gastrointestinal: Soft and benign, Non-distended Musculoskeletal: No swelling Integumentary: No rashes Neurological: Normal strength at 5/5 x4 extr Assessment And Plan Physician Review Additional Text: Assessment and Plan Acute hypoxic respiratory failure secondary to COVID-19 pneumonia complicated with obesity, thrombocytopenia, leukopenia Diabetes mellitus, type 2, new diagnosis Steroid-induced hyperglycemia continue IV steroids, supplemental oxygen, vitamins. pulm is following. on baricitinib hyperglycemia secondary to steroid use and new diagnosis of DM2 A1c >8, Insulin sliding scale. Titrate Novolin 70/30. Wean oxygen as tolerated. VTE prophylaxis: xarelto
[2021-05-22] MEDS: RIVAROXABAN 20 MG TABLET PO SCH (16:35)
[2021-05-23] MEDS: INSULIN -REGULAR HUMAN 50 UNIT/0.5 ML ML SQ SCH ×4 (08:36→20:33)
[2021-05-23] MEDS: BARICITINIB 2 MG TABLET PO SCH (08:37)
[2021-05-23] MEDS: INSULIN 70/30 100 UNITS/ML SQ SCH ×2 (08:37→16:15)
[2021-05-23] MEDS: ZINC SULFATE 220 MG CAP PO SCH (08:38)
[2021-05-23] MEDS: VITAMIN D 1000 UNIT TAB PO SCH (08:38)
[2021-05-23] MEDS: ASPIRIN EC 81 MG TAB PO SCH (08:38)
[2021-05-23] MEDS: THIAMINE HCL 100 MG TABLET PO SCH (08:38)
[2021-05-23] MEDS: METHYLPREDNISOLONE 40 MG INJ IV SCH ×3 (08:38→20:33)
[2021-05-23] MEDS: ASCORBIC ACID 500 MG TABLET PO SCH ×4 (08:39→20:32)
[2021-05-23] MEDS: GLUCERNA SHAKE 237 ML CAN PO SCH ×2 (10:02→20:32)
--- NOTE | 2021-05-23 13:41 | P.PN ---
Subjective Date of Service: 05/23/21 Chief Complaint: COVID-19 pneumonia REsp failure on 15 l NC Review of Systems General: Weakness Respiratory: Shortness of Breath Physical Examination - Vital Signs Temperature: 98.8 F Blood Pressure: 117/74 Pulse: 79 Respirations: 25 Pulse Ox (%): 25 - Physical Exam General: In no apparent distress, Oriented x3, Cooperative Assessment & Plan - Problems (Diagnosis) (1) Pneumonia due to COVID-19 virus Current Visit: Yes Status: Acute Plan: Resp failure requiring high concentration of Fio2/ on Max TX/ CXRY ordered
--- NOTE | 2021-05-23 14:09 | P.PN ---
Subjective Date of Service: 05/23/21 Chief Complaint: COVID-19 pneumonia Patient oxygen requirement is worse today. She denies any complain. Physical Examination - Vital Signs Temperature: 98.8 F Blood Pressure: 117/74 Pulse: 79 Respirations: 25 Pulse Ox (%): 25 - Physical Exam General: In no apparent distress HEENT: Other (Oxygen by nasal cannula) Neck: JVD not distended Respiratory: Other (Nonlabored breathing) Cardiovascular: Regular rate/rhythm, Normal S1 S2 Gastrointestinal: Soft and benign, Non-distended Musculoskeletal: No swelling Integumentary: No rashes Neurological: Normal strength at 5/5 x4 extr Assessment And Plan Physician Review Additional Text: Assessment and Plan Acute hypoxic respiratory failure secondary to COVID-19 pneumonia complicated with obesity, thrombocytopenia, leukopenia Diabetes mellitus, type 2, new diagnosis Steroid-induced hyperglycemia continue IV steroids, supplemental oxygen, vitamins. pulm is following. on baricitinib hyperglycemia secondary to steroid use and new diagnosis of DM2 A1c >8, Insulin sliding scale. Increase Novolin 70/30. Wean oxygen as tolerated. VTE prophylaxis: xarelto
--- NOTE | 2021-05-23 14:13 | RAD REPORT ---
EXAM DESCRIPTION: RAD - Chest Single View - 05/23/2021 1:58 pm CLINICAL HISTORY: pneumonia COMPARISON: Chest Single View dated 05/16/2021; Chest Single View dated 05/15/2021; Chest Single View da bri 05/13/2021; Chest Single View dated 05/11/2021 FINDINGS: Moderate widespread bilateral airspace disease which is slightly worsened compared with The heart size is within normal limits.No acute osseous abnormality. No significant pleural effusions or pneumothorax. IMPRESSION: Mild worsening in aeration of the lungs compared with 05/16/2021.
[2021-05-23] MEDS: RIVAROXABAN 20 MG TABLET PO SCH (16:16)
[2021-05-24 04:01] LABS: Absolute Lymphocytes (CBC) 0.4 K/uL (0.7-4.9); Basophils % 0.5 % (0-1.3); Hematocrit 39.5 % (36.0-45.0); Lymphocytes % 2.3 % (15.3-44.8); RBC Red Blood Cell Count 4.46 M/uL (3.86-4.86)
[2021-05-24 04:16] LABS: BUN Blood Urea Nitrogen 21 mg/dL (7-18); Bicarbonate 31 mmol/L (21-32); Glucose Level 125 mg/dL (74-106); Potassium 4.6 mmol/L (3.5-5.1); Sodium Level 140 mmol/L (136-145)
--- NOTE | 2021-05-24 07:12 | RAD REPORT ---
EXAM DESCRIPTION: RAD - Chest Single View - 05/24/2021 5:05 am CLINICAL HISTORY: penumonia COMPARISON: Chest Single View dated 05/23/2021; Chest Single View dated 05/16/2021; Chest Single View d ated 05/15/2021; Chest Single View dated 05/13/2021 FINDINGS: Moderate patchy bilateral airspace disease which is not significant changed since 05/23/20 21. Cardiomegaly peerNo acute osseous abnormality. No significant pleural effusions or pneumothorax. IMPRESSION: Similar moderate patchy airspace disease concerning for multifocal pneumonia.
[2021-05-24] MEDS: INSULIN -REGULAR HUMAN 50 UNIT/0.5 ML ML SQ SCH ×4 (08:17→21:07)
[2021-05-24] MEDS: INSULIN 70/30 100 UNITS/ML SQ SCH ×2 (08:18→16:38)
[2021-05-24] MEDS: BARICITINIB 2 MG TABLET PO SCH (08:18)
[2021-05-24] MEDS: ZINC SULFATE 220 MG CAP PO SCH (08:19)
[2021-05-24] MEDS: THIAMINE HCL 100 MG TABLET PO SCH (08:19)
[2021-05-24] MEDS: VITAMIN D 1000 UNIT TAB PO SCH (08:19)
[2021-05-24] MEDS: ASCORBIC ACID 500 MG TABLET PO SCH ×4 (08:19→21:07)
[2021-05-24] MEDS: METHYLPREDNISOLONE 40 MG INJ IV SCH ×3 (08:19→21:07)
[2021-05-24] MEDS: ASPIRIN EC 81 MG TAB PO SCH (08:19)
[2021-05-24] MEDS: GLUCERNA SHAKE 237 ML CAN PO SCH ×2 (08:19→21:00)
[2021-05-24] MEDS: POLYETHYL GLY 3350 17 GM/DOSE PO SCH ×2 (09:30→21:06)
[2021-05-24] MEDS: DOCUSATE NA/SENNA CONC 1 TAB PO SCH ×2 (09:30→21:06)
[2021-05-24] MEDS: RIVAROXABAN 20 MG TABLET PO SCH (16:28)
--- NOTE | 2021-05-24 17:09 | P.PN ---
Subjective Date of Service: 05/24/21 Chief Complaint: COVID-19 pneumonia No major change from yesterday. Patient maintained on 10-15 L oxygen by nasal canula. Physical Examination - Vital Signs Temperature: 98.6 F Blood Pressure: 119/67 Pulse: 82 Respirations: 20 Pulse Ox (%): 88 - Physical Exam General: In no apparent distress Neck: JVD not distended Respiratory: Other (Nonlabored breathing) Cardiovascular: Regular rate/rhythm, Normal S1 S2 Gastrointestinal: Soft and benign, Non-distended Musculoskeletal: No swelling Integumentary: No rashes Neurological: Normal strength at 5/5 x4 extr Assessment And Plan Physician Review Additional Text: Assessment and Plan Acute hypoxic respiratory failure secondary to COVID-19 pneumonia complicated with obesity, thrombocytopenia, leukopenia Diabetes mellitus, type 2, new diagnosis Steroid-induced hyperglycemia continue IV steroids, supplemental oxygen, vitamins. pulm is following. on baricitinib hyperglycemia secondary to steroid use and new diagnosis of DM2 A1c >8, Insulin sliding scale. Titrate Novolin 70/30. Wean oxygen as tolerated. Patient advised to assume prone position as much as tolerated. VTE prophylaxis: xarelto
[2021-05-25 03:51] LABS: Absolute Lymphocytes (CBC) 0.2 K/uL (0.7-4.9); Basophils % 0.5 % (0-1.3); Hematocrit 38.8 % (36.0-45.0); Lymphocytes % 1.6 % (15.3-44.8); MPV 8.9 fL (7.6-11.3); RBC Red Blood Cell Count 4.35 M/uL (3.86-4.86)
[2021-05-25 04:00] LABS: BUN Blood Urea Nitrogen 23 mg/dL (7-18); Bicarbonate 28 mmol/L (21-32); Ferritin 194.1 ng/mL (8-388); Glucose Level 166 mg/dL (74-106); Potassium 4.2 mmol/L (3.5-5.1); Sodium Level 139 mmol/L (136-145)
[2021-05-25 04:02] LABS: C-Reactive Protein < 2.90 mg/L (<3.00)
[2021-05-25] MEDS: INSULIN -REGULAR HUMAN 50 UNIT/0.5 ML ML SQ SCH ×4 (07:30→21:00)
[2021-05-25] MEDS: THIAMINE HCL 100 MG TABLET PO SCH (08:55)
[2021-05-25] MEDS: ZINC SULFATE 220 MG CAP PO SCH (08:55)
[2021-05-25] MEDS: DOCUSATE NA/SENNA CONC 1 TAB PO SCH ×2 (08:55→21:01)
[2021-05-25] MEDS: ASPIRIN EC 81 MG TAB PO SCH (08:55)
[2021-05-25] MEDS: ASCORBIC ACID 500 MG TABLET PO SCH ×4 (08:55→21:01)
[2021-05-25] MEDS: METHYLPREDNISOLONE 40 MG INJ IV SCH ×3 (08:56→21:00)
[2021-05-25] MEDS: BARICITINIB 2 MG TABLET PO SCH (08:56)
[2021-05-25] MEDS: INSULIN 70/30 100 UNITS/ML SQ SCH ×2 (08:57→17:29)
[2021-05-25] MEDS: GLUCERNA SHAKE 237 ML CAN PO SCH ×2 (08:58→21:00)
[2021-05-25] MEDS: POLYETHYL GLY 3350 17 GM/DOSE PO SCH ×2 (08:58→21:01)
[2021-05-25] MEDS: VITAMIN D 1000 UNIT TAB PO SCH (09:02)
--- NOTE | 2021-05-25 13:55 | P.PN ---
Subjective Date of Service: 05/25/21 Chief Complaint: COVID-19 pneumonia Subjective: Improving (breathing more comfortably, tired of being in the hospital, wants to go home, frustrated. had some constipation 1-2 days ago. reports hypoxic easily with minimal movement) Review of Systems 10-point ROS is otherwise unremarkable Physical Examination - Vital Signs Temperature: 98.0 F Blood Pressure: 96/57 Pulse: 86 Respirations: 18 Pulse Ox (%): 94 Assessment & Plan Physician Review Additional Text: Physical Exam General: In no apparent distress HEENT: normal conjunctiva, sclera anicteric Respiratory: Nonlabored breathing on 10L NC Cardiovascular: Regular rate/rhythm, Normal S1 S2 Gastrointestinal: Soft and benign, Non-distended Musculoskeletal: No joint swelling Integumentary: No rashes Problem List Acute hypoxic respiratory failure secondary to COVID-19 pneumonia complicated with obesity, thrombocytopenia, leukopenia Diabetes mellitus, type 2, new diagnosis Steroid-induced hyperglycemia Constipation continue IV steroids, supplemental oxygen, vitamins. decrease steroids further 05/25 - 40 IV BID pulm is following. on baricitinib hyperglycemia secondary to steroid use and new diagnosis of DM2 A1c >8, Insulin sliding scale. Titrate Novolin 70/30. on significantly high doses Wean oxygen as tolerated. Patient advised to assume prone position as much as tolerated. continue stool softener VTE prophylaxis: xarelto Dispo: anticipate dc home with O2 in next ~2-3days Time Spent Managing Pts Care (In Minutes): 40
[2021-05-25] MEDS: RIVAROXABAN 20 MG TABLET PO SCH (17:28)
[2021-05-25] MEDS: ALPRAZOLAM 0.5 MG TABLET PO PRN (21:01)
[2021-05-26 03:53] LABS: Absolute Lymphocytes (CBC) 0.3 K/uL (0.7-4.9); Basophils % 0.9 % (0-1.3); Hematocrit 40.7 % (36.0-45.0); Lymphocytes % 2.1 % (15.3-44.8); MPV 8.5 fL (7.6-11.3); RBC Red Blood Cell Count 4.54 M/uL (3.86-4.86)
[2021-05-26 04:19] VITALS: O2SAT 88
[2021-05-26 04:24] LABS: Blood Morphology Comment NOT SEEN (NOT SEEN); Platelet Estimate ADEQ
[2021-05-26] MEDS: VITAMIN D 1000 UNIT TAB PO SCH (08:41)
[2021-05-26] MEDS: ASCORBIC ACID 500 MG TABLET PO SCH ×2 (08:41→11:57)
[2021-05-26] MEDS: ZINC SULFATE 220 MG CAP PO SCH (08:42)
[2021-05-26] MEDS: DOCUSATE NA/SENNA CONC 1 TAB PO SCH (08:42)
[2021-05-26] MEDS: ASPIRIN EC 81 MG TAB PO SCH (08:42)
[2021-05-26] MEDS: BARICITINIB 2 MG TABLET PO SCH (08:42)
[2021-05-26] MEDS: THIAMINE HCL 100 MG TABLET PO SCH (08:42)
[2021-05-26] MEDS: POLYETHYL GLY 3350 17 GM/DOSE PO SCH (08:42)
[2021-05-26] MEDS: GLUCERNA SHAKE 237 ML CAN PO SCH (08:42)
[2021-05-26] MEDS: BENZONATATE 100 MG CAP PO PRN (08:43)
[2021-05-26] MEDS: METHYLPREDNISOLONE 40 MG INJ IV SCH (08:43)
[2021-05-26] MEDS: ALPRAZOLAM 0.5 MG TABLET PO PRN (08:44)
[2021-05-26] MEDS: INSULIN -REGULAR HUMAN 50 UNIT/0.5 ML ML SQ SCH ×2 (09:03→11:56)
[2021-05-26 09:26] VITALS: BP 140/80; TEMP 97.5
--- NOTE | 2021-05-26 11:15 | P.DS ---
Admission Date: 05/11/21 Discharge Date: 05/26/21 Disposition: ROUTINE DISCHARGE Discharge Condition: FAIR Reason for Admission: COVID-19 pneumonia Consultations: PulmonologyDr. Ham Procedures: CXR (05/11): FINDINGS: Moderate patchy bilateral airspace disease. The heart size is within normal limits.No acute osseous abnormality. No significant pleural effusions or pneumothorax. IMPRESSION: Moderate bilateral airspace disease concerning for multifocal pneumonia, including Covid-19. CTA Chest (05/11): IMPRESSION: 1. No pulmonary embolism. 2. Multifocal bilateral groundglass opacities. Commonly reported imaging features of viral pneumonia are present. Other processes such as influenza pneumonia and organizing pneumonia, as can be seen with drug toxicity and connective tissue disease, can cause a similar imaging pattern. 3. Hepatic steatosis. CXR (05/24): FINDINGS: Moderate patchy bilateral airspace disease which is not significant changed since 05/23/2021. Cardiomegaly peerNo acute osseous abnormality. No significant pleural effusions or pneumothorax. IMPRESSION: Similar moderate patchy airspace disease concerning for multifocal pneumonia. Problem List Acute hypoxic respiratory failure secondary to COVID-19 pneumonia complicated with obesity, thrombocytopenia, leukopenia Diabetes mellitus, type 2, new diagnosis Steroid-induced hyperglycemia Constipation Brief History of Present Illness: 36-year-old female with history of anemia, obesity presents emergency department for shortness of breath. Patient reports testing positive for Covid on 05/03/2021. Patient with significant worsening in chest x-ray since previous emergency department visit. Patient valuated the emergency department labs significant for white blood cell count 2.9 platelet count 93, chemistry pending, patient hypoxic on room air saturating in the 80s currently tolerate nasal cannula by 2 to 3 L at this time. ED provider wishes to admit for further evaluation and management of COVID-19 pneumonia. Patient nonvaccinated Hospital Course: Patient had a prolonged hospitalization due to the COVID-19 pneumonia. She had initial improvement down to 4 L nasal cannula, however and her oxygen requirement increased up to 15 L. She eventually had gradual improvement again down to 4 L. This time she was feeling much better, ambulating around her room to the bedside commode, appetite improved. She was also dealing with quite a bit of anxiety and stress from being away from her home. Day of discharge, patient was breathing comfortably on 4 L, with SpO2: 88-90%. Later in the morning she did require up to 6 L to maintain the same oxygen saturation. Patient reported this was due to her anxiety and stress. She threatened to leave AMA if she was not discharged today. I discussed the risks with the patient. As I was discussing with her she had improvement of her oxygen saturation. Given her continued improvement, patient was discharged home to continue treatment with steroids, vitamin supplementation, Xarelto, and oxygen supplementation. Patient was noted to have a hemoglobin A1c of 8.6 on admission. She required significantly high doses of insulin 70/30, up to 70 units twice daily. She was discharged with a prescription for 40 units twice daily and instructions to titrate down on the insulin for glucose gets too low. She was advised to follow-up with her PCP in 3-5 days To follow-up with pulmonology, Dr. Ham in 1 week. Vital Signs/Physical Exam: Physical Exam General: In no apparent distress HEENT: normal conjunctiva, sclera anicteric Respiratory: Nonlabored breathing on 4L NC Cardiovascular: Regular rate/rhythm, Normal S1 S2 Gastrointestinal: Soft and benign, Non-distended Musculoskeletal: No joint swelling Integumentary: No rashes Temp Pulse Resp BP Pulse Ox 97.5 F 73 20 140/80 87 L 05/26/21 08:00 05/26/21 08:00 05/26/21 04:00 05/26/21 08:00 05/26/21 08:00 Laboratory Data at Discharge: WBC 15.70 K/uL (4.3-10.9) H 05/26/21 03:26 Hgb 13.9 g/dL (12.0-15.0) 05/26/21 03:26 Hct 40.7 % (36.0-45.0) 05/26/21 03:26 Plt Count 460 K/uL (152-406) H 05/26/21 03:26 PT 13.5 SECONDS (9.5-12.5) H 05/11/21 01:45 INR 1.17 05/11/21 01:45 Sodium 139 mmol/L (136-145) 05/25/21 02:56 Potassium 4.2 mmol/L (3.5-5.1) 05/25/21 02:56 BUN 23 mg/dL (7-18) H 05/25/21 02:56 Creatinine 0.50 mg/dL (0.55-1.3) L 05/25/21 02:56 Glucose 166 mg/dL (74-106) H 05/25/21 02:56 Magnesium 2.1 mg/dL (1.8-2.4) 05/17/21 04:58 Total Bilirubin 0.7 mg/dL (0.2-1.0) 05/17/21 04:58 AST 9 U/L (15-37) L 05/17/21 04:58 ALT 23 U/L (12-78) 05/17/21 04:58 Alkaline Phosphatase 55 U/L (45-117) 05/17/21 04:58 Triglycerides 171 mg/dL (<150) H 05/12/21 06:05 Cholesterol 146 mg/dL (<200) 05/12/21 06:05 HDL Cholesterol 25 mg/dL (40-60) L 05/12/21 06:05 Cholesterol/HDL Ratio 5.84 05/12/21 06:05 Home Medications: Ascorbic Acid [Vitamin C*] 500 mg PO QID 30 Days #120 tablet 05/26/21 Benzonatate [Tessalon Perle*] 100 mg PO TID PRN 7 Days #21 cap 05/26/21 Insulin 70/30 NPH/Reg Human [Novolin 70/30*] 40 unit SQ BIDAC 30 Days #25 ml 05/26/21 Rivaroxaban [Xarelto] 20 mg PO DAILY AT SUPPER 30 Days #30 tablet 05/26/21 Thiamine HCl [Vitamin B-1*] 200 mg PO DAILY 30 Days #60 tablet 05/26/21 Zinc Sulfate [Zinc Sulfate*] 220 mg PO DAILY 30 Days #30 cap 05/26/21 predniSONE [Prednisone] 20 mg PO SEECOM 14 Days #21 tablet 05/26/21 New Medications: Insulin 70/30 NPH/Reg Human [Novolin 70/30*] 40 unit SQ BIDAC 30 Days #25 ml predniSONE [Prednisone] 20 mg PO SEECOM 14 Days #21 tablet Benzonatate [Tessalon Perle*] 100 mg PO TID PRN 7 Days #21 cap PRN Reason: Cough Thiamine HCl [Vitamin B-1*] 200 mg PO DAILY 30 Days #60 tablet Ascorbic Acid [Vitamin C*] 500 mg PO QID 30 Days #120 tablet Rivaroxaban [Xarelto] 20 mg PO DAILY AT SUPPER 30 Days #30 tablet Zinc Sulfate [Zinc Sulfate*] 220 mg PO DAILY 30 Days #30 cap Diet: ADA Activity: Ad erik Followup: Rory Ham MD [ACTIVE - CAN ADMIT] - NONE,NONE [Primary Care Provider] - Time spent managing pt's care (in minutes): 40
== END 2021-05-26 12:22 | disposition home or self-care (01) | DRG 177 ==
LOC: ER 22:20 → ERHOLD 05-11 02:12 → 4TH 05-11 17:50
PROVIDERS: ADMIT Hospitalist; ATTEND Hospitalist
PROC: 5A09357 Assistance with Respiratory Ventilation, Less than 24 Consecutive Hours, Continuous Positive Airway Pressure (ICD-10-PCS; principal; 2021-05-13)
DX: U07.1 COVID-19 (principal); J12.82 Pneumonia due to coronavirus disease 2019; J96.01 Acute respiratory failure with hypoxia; Z68.42 Body mass index [BMI] 45.0-49.9, adult; E66.9 Obesity, unspecified; D69.6 Thrombocytopenia, unspecified; D72.819 Decreased white blood cell count, unspecified; E11.65 Type 2 diabetes mellitus with hyperglycemia; T38.0X5A Adverse effect of glucocorticoids and synthetic analogues, initial encounter; K59.00 Constipation, unspecified
CPT/HCPCS: 36415; 71045; 71275; 80048; 80053; 80061; 80076; 81003; 81025; 82728; 82947; 83036; 83735; 83880; 84145; 84439; 84443; 84484; 85025; 85027; 85379; 85610; 86140; 87040; 93005; 94660; 94760; 96372; 96374; 96375; 99285; J0456; J0696; J1100; J1650; J1815; J2405; J2920; J2930; J3475; J7030; J7050; Q9967; U0003

== ENCOUNTER 2022-05-10 20:11 | Emergency (ER) | payer SELFPAY ==
--- OUTSIDE RECORDS SUMMARY | 2022-05-10 20:13 | XMS REPORT | Continuity of Care Document ---
:1985 Author Organization [facility] t Address [address] [place] [address] Dr. Frazier [address] [place] [id number] Care Team Providers Name Role Phone Unavailable Unavailable Unavailable Problems This patient has no known problems. Allergies, Adverse Reactions, Alerts This patient has no known allergies or adverse reactions. Medications This patient has no known medications. Procedures This patient has no known procedures. Results Test Description Test Time Test Comments Results Result Comments Source SARS-CoV-2 (COVID-19), RT-PCR/TMA 2021-12-10 08:48:24 Test Item Value Reference Range Interpretation Comme nts SARS-CoV-2 INTERPRETATION NEGATIVE SEE NOTE S ARS-CoV-2 RNA NOT (test code = 03356) DETECTED Negative results do not preclude SARS-C oV-2 infection and should notbe us ed as the sole basis for patie nt management decisions. Nega tiveresults must be combined wit h clinical observations, p atient history,and epidemiological information. Optimum specime n types and timingfor peak viral levels during infectio ns caused by SARS-CoV-2 have notbeen determined. Col lection of multiple specim ens or types ofspecimens may be necessary to detect virus. I mproper specimencollect ion and handling, sequence variab ility under primers/probes, or organism present below t he limit of detection may l ead to falsenegative r esults. Positive and negative pr edictive values oftesting are h ighly dependent on prevalence. Fal se negative testresults are more likely when prevalence is h igh. EFFECTIVE 12/20/2021, SPU LORENA SPECIMENS CAN NO LONGER BE TE STED WITHTHIS ORDER CODE. FOR SALIVA, ORAL FLUID TESTING A ND SPECIMENREQUIRE MENTS, PLEASE REFER TO ORDER CODE 3509. SOURCE (test code = 13547) NOT SPECIFIED Note: Methodology is Dona Sincere Real-Time RT-PC R. The expected result or refer ence range is NEGATIVE (Not D etected). For more information reg arding COVID-19 testing to incl ude clinicalinforma tion, methodology detail, intende d use, FDA authorization a ndrecommended fact sheets for saul ents or healthcare providers, see [facility] Announcement: S ARS-CoV-2 (COVID-19) by Donald FLYNN at URL below (note,fact shee ts are provided by method given in report:https:// [email or web address]/cl [email or web address]/client -communications/ Alternatively, see downloadable PDF fact sheet at:[email or web address]. [employer]/COVID- 19-RT-PCR UNLES S OTHERWISE INDICATED, ALL TESTING PERFORMED [facility], [address] [place] [address] 4 LOCKER ROOM MANAGER: LETTY MILLER M.D. CLIA NUMBER [id number] CAP ACCREDITATION N O. [id number] TSH + FREE T4 [id number] 04:46:08 Test Item Value Reference Range Interpretation Comments TSH, THIRD 3.090 UIU/ML 0.400-4.100 GENERATION (test code = 2821) FREE T4 (THYROXINE) 0.88 NG/DL 0.80-1.90 UNLESS OTHERWISE (test code = 2823) INDICATED , ALL TESTING PERFORMED [facility], [address] [place] [address] DIRECTOR: LETTY MILLER M.D. CLIA NUMBER [id number] CAP ACCREDITATION N O. [id number]
[2022-05-10] MEDS ORDERED: dexAMETHasone 10 MG/ML VIAL ONE (20:49)
[2022-05-11 03:10] VITALS: BP 148/92; TEMP 98.2; O2SAT 98
--- NOTE | 2022-05-11 10:30 | EDPHYS ---
Physician Documentation [facility] Name: Charity Colon Age: 37 yrs Sex: Female : 1985 Arrival Date: 05/10/2022 Time: 20:12 Bed Waiting Private MD: ED Physician Jose Antonio Cannon HPI: 05/10 20:41 This 37 yrs old Female presents to ER via Ambulatory with complaints of Rash jl9 to her face and scalp. Patient seen by PCP earlier today and was given a medrol pack but she was unable to pick it up.. 20:41 The patient's rash thought to be caused by an unknown cause. The rash is located on the jl9 face. The rash can be described as urticarial. Onset: The symptoms/episode began/occurred 1 day(s) ago. Associated signs and symptoms: Pertinent negatives: fever. Treatment given at home: Benadryl. 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 - Social history:: Smoking status: Patient denies any tobacco usage or history of. ROS: 20:42 Constitutional: Negative for fever, chills, and weight loss, Eyes: Negative for injury, jl9 pain, redness, and discharge, ENT: Negative for injury, pain, and discharge, Neck: Negative for injury, pain, and swelling, Cardiovascular: Negative for chest pain, palpitations, and edema, Respiratory: Negative for shortness of breath, cough, wheezing, and pleuritic chest pain, Abdomen/GI: Negative for abdominal pain, nausea, vomiting, diarrhea, and constipation, Back: Negative for injury and pain, MS/Extremity: Negative for injury and deformity. 20:42 Neuro: Negative for headache, weakness, numbness, tingling, and seizure, Psych: Negative for depression, anxiety, suicide ideation, homicidal ideation, and hallucinations, Allergy/Immunology: Negative for hives, rash, and allergies, Endocrine: Negative for neck swelling, polydipsia, polyuria, polyphagia, and marked weight changes, Hematologic/Lymphatic: Negative for swollen nodes, abnormal bleeding, and unusual bruising. 20:42 Skin: Positive for erythema, rash, Mild rash to face and scalp area. . Exam: 20:43 Constitutional: This is a well developed, well nourished patient who is awake, alert, jl9 and in no acute distress. Head/Face: Normocephalic, atraumatic. Eyes: Pupils equal round and reactive to light, extra-ocular motions intact. Lids and lashes normal. Conjunctiva and sclera are non-icteric and not injected. Cornea within normal limits. Periorbital areas with no swelling, redness, or edema. ENT: Mucous membranes moist. Neck: Trachea midline, no thyromegaly or masses palpated, and no cervical lymphadenopathy. Supple, full range of motion without nuchal rigidity, or vertebral point tenderness. No Meningismus. Chest/axilla: Normal chest wall appearance and motion. Nontender with no deformity. No lesions are appreciated. Cardiovascular: Regular rate and rhythm with a normal S1 and S2. No gallops, murmurs, or rubs. Normal PMI, no JVD. No pulse deficits. Respiratory: Lungs have equal breath sounds bilaterally, clear to auscultation and percussion. No rales, rhonchi or wheezes noted. No increased work of breathing, no retractions or nasal flaring. Abdomen/GI: Soft, non-tender, with normal bowel sounds. No distension or tympany. No guarding or rebound. No evidence of tenderness throughout. Back: No spinal tenderness. No costovertebral tenderness. Full range of motion. 20:43 MS/ Extremity: Pulses equal, no cyanosis. Neurovascular intact. Full, normal range of motion. Neuro: Awake and alert, GCS 15, oriented to person, place, time, and situation. Cranial nerves II-XII grossly intact. Motor strength 5/5 in all extremities. Sensory grossly intact. Cerebellar exam normal. Normal gait. Psych: Awake, alert, with orientation to person, place and time. Behavior, mood, and affect are within normal limits. 20:43 Skin: Face and scalp area. Non-bullous. . Vital Signs: 20:24 BP 148 / 92; Pulse 74; Resp 18; Temp 98.2; Pulse Ox 98% on R/A; Weight 120.2 kg; Height eh3 5 ft. 4 in. (162.56 cm); Pain 0/10; 20:24 Body Mass Index 45.49 (120.20 kg, 162.56 cm) eh3 MDM: 20:41 Patient medically screened. jl9 20:44 Data reviewed: vital signs, nurses notes. jl9 Administered Medications: 20:45 Drug: Dexamethasone 10 mg Route: IM; Site: right deltoid; ld1 Disposition: 22:52 Co-signature as Attending Physician, Jose Antonio Cannon MD. rn Disposition Summary: 05/10/22 20:46 Discharge Ordered Location: Home jl9 Condition: Stable jl9 Diagnosis - Dermatitis, unspecified jl9 Followup: jl9 - With: Private Physician - When: 1 - 2 days - Reason: Recheck today's complaints, Continuance of care, Re-evaluation by your physician Discharge Instructions: - Discharge Summary Sheet jl9 - Rash, Adult jl9 Forms: - Medication Reconciliation Form jl9 - Thank You Letter jl9 - Antibiotic Education jl9 - Prescription Opioid Use jl9 Prescriptions: - Medrol ([place]) 4 mg Oral Tablets, Dose Pack - take 1 tablet by ORAL route as directed - follow package instructions; 1 jl9 packet; Refills: 0, Product Selection Permitted Signatures: Jose Antonio Cannon MD MD rn Dibbern, Lauren, RN RN ld1 Emelina Guadalupe [facility] Mark Anthony Powers jl9
--- NOTE | 2022-05-11 10:30 | ER ---
Nurse's Notes [facility] Name: Charity Colon Age: 37 yrs Sex: Female : 1985 Arrival Date: 05/10/2022 Time: 20:12 Bed Waiting Private MD: Diagnosis: Dermatitis, unspecified Presentation: 05/10 20:24 Chief complaint: Patient states: facial rash and itching scalp for 5 days. Coronavirus eh3 screen: Vaccine status: Patient reports receiving the 2nd dose of the covid vaccine. Ebola Screen: No symptoms or risks identified at this time. Initial Sepsis Screen: Does the patient meet any 2 criteria? No. Patient's initial sepsis screen is negative. Does the patient have a suspected source of infection? No. Patient's initial sepsis screen is negative. Risk Assessment: Do you want to hurt yourself or someone else?. Onset of symptoms was May 06, 2022. 20:24 Method Of Arrival: Ambulatory 3 20:24 Acuity: TAISHA 4 eh3 Triage Assessment: 20:26 General: Appears in no apparent distress. uncomfortable, Behavior is calm, cooperative, eh3 appropriate for age. Pain: Denies pain. Neuro: Level of Consciousness is awake, alert, obeys commands, Oriented to person, place, time, situation. Cardiovascular: Capillary refill < 3 seconds Patient's skin is warm and dry. Respiratory: Airway is patent Respiratory effort is even, unlabored. Derm: Rash noted that is itchy, papular, red, raised. FA[employer] FRY COOK: 20:30 [facility] 01/2022 eh3 Historical: - Allergies: 20:26 No Known Allergies; eh3 - Home Meds: 20:26 None [Active]; eh3 - PMHx: 20:26 Anemia; COVID; Hypothyroidism; eh3 - PSHx: 20:26 Appendectomy; Ligation of fallopian tube; eh3 - Immunization history:: Adult Immunizations up to date. - Social history:: Smoking status: Patient denies any tobacco usage or history of. Screenin:02 Abuse screen: Denies threats or abuse. Denies injuries from another. Nutritional ld1 screening: No deficits noted. Tuberculosis screening: No symptoms or risk factors identified. Fall Risk None identified. Vital Signs: 20:24 BP 148 / 92; Pulse 74; Resp 18; Temp 98.2; Pulse Ox 98% on R/A; Weight 120.2 kg; Height eh3 5 ft. 4 in. (162.56 cm); Pain 0/10; 20:24 Body Mass Index 45.49 (120.20 kg, 162.56 cm) eh3 ED Course: 20:12 Patient arrived in ED. bp1 20:14 Mark Anthony Powers is PHCP. jl9 20:14 Jose Antonio Cannon MD is Attending Physician. jl9 20:26 Triage completed. eh3 20:30 Arm band placed on right wrist. eh3 21:02 Patient has correct armband on for positive identification. Bed in low position. Pulse ld1 ox on. NIBP on. 21:02 No provider procedures requiring assistance completed. Patient did not have IV access ld1 during this emergency room visit. Administered Medications: 20:45 Drug: Dexamethasone 10 mg Route: IM; Site: right deltoid; ld1 Medication: 21:03 VIS not applicable for this client. ld1 Outcome: 20:46 Discharge ordered by . jl9 21:02 Discharged to home ambulatory. ld1 21:02 Condition: stable 21:02 Discharge instructions given to patient, Instructed on discharge instructions, follow up and referral plans. medication usage, Demonstrated understanding of instructions, follow-up care, medications. 21:03 Patient left the ED. ld1 Signatures: Syl Mas bp1 Adelina Pedersen, RN RN ld1 Emelina Guadalupe 3 Mark Anthony Powers jl9 Corrections: (The following items were deleted from the chart) 20:31 20:26 Derm: Rash noted that is raised, 3 3
== END 2022-05-10 21:03 | disposition home or self-care (01) ==
LOC: ER 20:11
DX: L30.9 Dermatitis, unspecified (principal)
CPT/HCPCS: 96372; 99283; J1100

== ENCOUNTER 2023-05-09 11:09 | Emergency (ER) | payer SELFPAY ==
--- OUTSIDE RECORDS SUMMARY | 2023-05-09 11:19 | XMS REPORT | Continuity of Care Document ---
:1985 Author Organization [facility] t Address [address] [place] [address] [place] [id number] Care Team Providers Name Role Phone Jaida Mcintyre Primary Care Physician [phone] Problems This patient has no known problems. Allergies, Adverse Reactions, Alerts This patient has no known allergies or adverse reactions. Medications Ordered Filled Start Stop Current Ordering Indication Dosage Frequency Signature Comments Components Source Medication Medication Date Date Medication? Clinician (SIG) Name Name INJECT 1 ML 2021-10 No 150 INTRAMUSCUL 03 MARK ONCE 00:00: EVERY 3 00 MONTHS. 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 2021-10 No A 150 MG/ML 10-11 SYRI 00:00: 00 Dose 2021-0 No Unknown 8- 00:00: 00 Dose 2021-0 No Unknown 05-20 00:00: 00 Dose 2021-0 No Unknown 05-20 00:00: 00 Dose 2021-0 No Unknown - 00:00: 00 Dose 2021-0 No Unknown 05-20 00:00: 00 TAKE 2021-0 No TABLET BY 8-11 MOUTH TWICE 00:00: DAILY FOR 7 00 DAYS THEN 1 TABLET DAILY FOR 7 DAYS TAKE 2021-0 No 100 CAPSULE BY 8-11 MOUTH THREE 00:00: TIMES DAILY 00 NEEDED FOR COUGH TAKE 2021-0 No 20 TABLET BY 8-11 MOUTH TWICE 00:00: DAILY FOR 7 00 DAYS THEN 1 TABLET DAILY FOR 7 DAYS TAKE 1 2021-0 No 100 CAPSULE BY 8-11 MOUTH THREE 00:00: TIMES DAILY 00 NEEDED FOR COUGH TAKE 2021-0 No 20 TABLET BY 8-11 MOUTH TWICE 00:00: DAILY FOR 7 00 DAYS THEN 1 TABLET DAILY FOR 7 DAYS TAKE 1 2021-0 No 100 CAPSULE BY 8-11 MOUTH THREE 00:00: TIMES DAILY 00 NEEDED FOR COUGH TAKE 1 2021-0 No TABLET BY 8-11 MOUTH TWICE 00:00: DAILY FOR 7 DAYS THEN 1 TABLET DAILY FOR 7 DAYS TAKE 1 2021-0 No 100 CAPSULE BY 8-11 MOUTH THREE 00:00: TIMES DAILY 00 NEEDED FOR COUGH TAKE 1 2021-0 No TABLET BY 8-11 MOUTH TWICE 00:00: DAILY FOR 7 00 DAYS THEN 1 TABLET DAILY FOR 7 DAYS TAKE 1 2021-0 No 100 CAPSULE BY 8-11 MOUTH THREE 00:00: TIMES DAILY 00 NEEDED FOR COUGH Dose 2021-0 No Unknown 8-09 00:00: 00 Dose 2021-0 No Unknown 8 00:00: 00 APPLY ON 0 No THE SKIN 8- THREE TIMES 00:00: A DAY FOR 5 DAYS. Dose 2021-0 No Unknown 8 00:00: 00 Dose 2021-0 No Unknown 8 00:00: 00 APPLY ON 0 No THE SKIN 8- THREE TIMES 00:00: A DAY FOR 5 DAYS. Dose 2021-0 No Unknown 8- 00:00: 00 Dose 2021-0 No Unknown 8 00:00: 00 APPLY ON 0 No THE SKIN 8-09 THREE TIMES 00:00: A DAY FOR 5 DAYS. Dose 2021-0 No Unknown 8 00:00: 00 Dose 2021-0 No Unknown 8 00:00: 00 APPLY ON 0 No THE SKIN 8- THREE TIMES 00:00: A DAY FOR 5 DAYS. Dose 2021-0 No Unknown 8- 00:00: 00 Dose 2021-0 No Unknown 8 00:00: 00 APPLY ON 0 No THE SKIN 8-09 THREE TIMES 00:00: A DAY FOR 5 DAYS. methylpredn No 1mg isolone 4 8-02 mg tablets 00:00: in a dose 00 pack APPLY ON No THE SKIN 8- THREE TIMES 00:00: A DAY FOR 5 DAYS. TAKE 10 2021-0 No ML(S) BY 8-02 MOUTH EVERY 00:00: FOUR TO SIX 00 HOURS. Dose 2021-0 No Unknown 8- 00:00: 00 Dose 2021-0 No Unknown 8-02 00:00: 00 Dose 2021-0 No Unknown 05-10 00:00: 00 TAKE 1 2021-0 No 20 TABLET BY 8- MOUTH TWICE 00:00: DAILY FOR 7 DAYS THEN 1 TABLET DAILY FOR 7 DAYS APPLY ON 0 No THE SKIN - THREE TIMES 00:00: A DAY FOR 5 DAYS. Dose 2021-0 No Unknown 05-10 00:00: 00 Dose 2021-0 No Unknown 05-10 00:00: 00 methylpredn 2021-0 No 1mg isolone 4 8-02 mg tablets 00:00: in a dose 00 pack APPLY ON No THE SKIN - THREE TIMES 00:00: A DAY FOR 5 DAYS. TAKE 10 2021-0 No ML(S) BY 8-02 MOUTH EVERY 00:00: FOUR TO SIX 00 HOURS. Dose 2021-0 No Unknown 05-10 00:00: 00 Dose 2021-0 No Unknown 05-10 00:00: 00 Dose 2021-0 No Unknown 05-10 00:00: 00 TAKE 1 2021-0 No 20 TABLET BY 8- MOUTH TWICE 00:00: DAILY FOR 7 DAYS THEN 1 TABLET DAILY FOR 7 DAYS APPLY ON 0 No THE SKIN - THREE TIMES 00:00: A DAY FOR 5 DAYS. Dose 2021-0 No Unknown 05-10 00:00: 00 Dose 2021-0 No Unknown 05-10 00:00: 00 methylpredn 2021-0 No 1mg isolone 4 8-02 mg tablets 00:00: in a dose 00 pack APPLY ON No THE SKIN - THREE TIMES 00:00: A DAY FOR 5 DAYS. TAKE 10 2021-0 No ML(S) BY 8-02 MOUTH EVERY 00:00: FOUR TO SIX 00 HOURS. Dose 2021-0 No Unknown 05-10 00:00: 00 Dose 2021-0 No Unknown 05-10 00:00: 00 Dose 2021-0 No Unknown 05-10 00:00: 00 TAKE 1 2021-0 No 20 TABLET BY 8-02 MOUTH TWICE 00:00: DAILY FOR 7 DAYS THEN 1 TABLET DAILY FOR 7 DAYS APPLY ON 0 No THE SKIN - THREE TIMES 00:00: A DAY FOR 5 DAYS. Dose 2021-0 No Unknown 05-10 00:00: 00 Dose 2021-0 No Unknown 05-10 00:00: 00 methylpredn 2-0 No 1mg isolone 4 8-02 mg tablets 00:00: in a dose 00 pack APPLY ON 0 No THE SKIN 05-10 THREE TIMES 00:00: A DAY FOR 5 DAYS. TAKE 10 2021-0 No ML(S) BY 8-02 MOUTH EVERY 00:00: FOUR TO SIX 00 HOURS. Dose 2021-0 No Unknown 05-10 00:00: 00 Dose 2021-0 No Unknown 05-10 00:00: 00 Dose 2021-0 No Unknown 05-10 00:00: 00 TAKE 1 2021-0 No 20 TABLET BY 8- MOUTH TWICE 00:00: DAILY FOR 7 DAYS THEN 1 TABLET DAILY FOR 7 DAYS APPLY ON 0 No THE SKIN 05-10 THREE TIMES 00:00: A DAY FOR 5 DAYS. Dose 2021-0 No Unknown 05-10 00:00: 00 Dose 2021-0 No Unknown 05-10 00:00: 00 methylpredn 2021-0 No 1mg isolone 4 8-02 mg tablets 00:00: in a dose 00 pack APPLY ON No THE SKIN 05-10 THREE TIMES 00:00: A DAY FOR 5 DAYS. TAKE 10 2021-0 No ML(S) BY 8-02 MOUTH EVERY 00:00: FOUR TO SIX 00 HOURS. Dose 2021-0 No Unknown 05-10 00:00: 00 Dose 2021-0 No Unknown 05-10 00:00: 00 Dose 2021-0 No Unknown 05-10 00:00: 00 TAKE 1 2021-0 No 20 TABLET BY 8-02 MOUTH TWICE 00:00: DAILY FOR 7 DAYS THEN 1 TABLET DAILY FOR 7 DAYS APPLY ON 0 No THE SKIN 05-10 THREE TIMES 00:00: A DAY FOR 5 DAYS. Dose 2021-0 No Unknown 05-10 00:00: 00 Dose 2021-0 No Unknown 05-10 00:00: 00 methylpredn 2-0 No 1mg isolone 4 8-02 mg tablets 00:00: in a dose 00 pack APPLY ON No THE SKIN 05-10 THREE TIMES 00:00: A DAY FOR 5 00 DAYS. TAKE 10 2021-0 No ML(S) BY 05-10 MOUTH EVERY 00:00: FOUR TO SIX 00 HOURS. Dose 2021-0 No Unknown 05-10 00:00: 00 Dose 2021-0 No Unknown 05-10 00:00: 00 Dose 2021-0 No Unknown 05-10 00:00: 00 TAKE 1 2021-0 No 20 TABLET BY 05-10 MOUTH TWICE 00:00: DAILY FOR 7 00 DAYS THEN 1 TABLET DAILY FOR 7 DAYS APPLY ON 0 No THE SKIN 05-10 THREE TIMES 00:00: A DAY FOR 5 00 DAYS. Dose 2021-0 No Unknown 05-10 00:00: 00 Dose 2021-0 No Unknown 05-10 00:00: 00 mupirocin 2-0 No 1% calcium 2 % 5-27 topical 00:00: cream 00 Dose 2021-0 No Unknown 5-27 00:00: 00 Dose 2-0 No Unknown 5-27 00:00: 00 Dose 2-0 No Unknown 5-27 00:00: 00 mupirocin 2-0 No 1% calcium 2 % 5-27 topical 00:00: cream 00 Dose 2021-0 No Unknown 5-27 00:00: 00 Dose 2-0 No Unknown 5-27 00:00: 00 Dose 2-0 No Unknown 5-27 00:00: 00 mupirocin 2-0 No 1% calcium 2 % 5-27 topical 00:00: cream 00 Dose 2-0 No Unknown 5-27 00:00: 00 Dose 2-0 No Unknown 5-27 00:00: 00 Dose 2-0 No Unknown 5-27 00:00: 00 mupirocin 2-0 No 1% calcium 2 % 5-27 topical 00:00: cream 00 Dose 2-0 No Unknown 5-27 00:00: 00 Dose 2-0 No Unknown 5-27 00:00: 00 Dose 2-0 No Unknown 5-27 00:00: 00 mupirocin 2-0 No 1% calcium 2 % 5-27 topical 00:00: cream 00 Dose 2-0 No Unknown 5-27 00:00: 00 Dose 2-0 No Unknown 5-27 00:00: 00 Dose 2-0 No Unknown 5-27 00:00: 00 mupirocin 2022-0 No 1% calcium 2 % 5-27 topical 00:00: cream 00 Dose 2022-0 No Unknown 5-27 00:00: 00 Dose 2022-0 No Unknown 5- 00:00: 00 Dose 2022-0 No Unknown 5- 00:00: 00 Dose 2022-0 No Unknown 3-06 00:00: 00 Dose 2022-0 No Unknown 3-06 00:00: 00 Dose 2022-0 No Unknown 3-06 00:00: 00 Dose 2022-0 No Unknown 3-06 00:00: 00 Dose 2022-0 No Unknown 3-06 00:00: 00 Dose 2022-0 No Unknown 3-06 00:00: 00 Dose 2022-0 No Unknown 3-06 00:00: 00 Dose 2022-0 No Unknown 3-06 00:00: 00 Dose 2022-0 No Unknown 3-06 00:00: 00 Dose 2022-0 No Unknown 3-06 00:00: 00 Dose 2022-0 No Unknown 3-06 00:00: 00 Dose 2022-0 No Unknown 3-06 00:00: 00 Dose 2022-0 No Unknown 3-04 00:00: 00 Dose 2022-0 No Unknown 3-04 00:00: 00 Dose 2022-0 No Unknown 3-04 00:00: 00 Dose 2022-0 No Unknown 3-04 00:00: 00 Dose 2022-0 No Unknown 3-04 00:00: 00 Dose 2022-0 No Unknown 3-04 00:00: 00 Tamiflu 75 2022-0 No 1mg mg capsule 3-03 00:00: 00 Bromfed DM 2022-0 No 10mg/5 2 mg-30 3-03 mL mg-10 mg/5 00:00: mL oral 00 syrup Tamiflu 75 2022-0 No 1mg mg capsule 3-03 00:00: 00 Bromfed DM 2022-0 No 10mg/5 2 mg-30 3-03 mL mg-10 mg/5 00:00: mL oral 00 syrup Tamiflu 75 2022-0 No 1mg mg capsule 3-03 00:00: 00 Bromfed DM 2022-0 No 10mg/5 2 mg-30 3-03 mL mg-10 mg/5 00:00: mL oral 00 syrup Tamiflu 75 2-0 No 1mg mg capsule 3- 00:00: 00 Bromfed DM 2-0 No 10mg/5 2 mg-30 3-03 mL mg-10 mg/5 00:00: mL oral 00 syrup Tamiflu 75 2-0 No 1mg mg capsule 3- 00:00: 00 Bromfed DM 2-0 No 10mg/5 2 mg-30 3-03 mL mg-10 mg/5 00:00: mL oral 00 syrup Tamiflu 75 2-0 No 1mg mg capsule 3- 00:00: 00 Bromfed DM 2-0 No 10mg/5 2 mg-30 3-03 mL mg-10 mg/5 00:00: mL oral 00 syrup Dose 2-0 No Unknown 2-28 00:00: 00 Dose 2022-0 No Unknown 2-28 00:00: 00 Dose 2022-0 No Unknown 2-28 00:00: 00 Dose 2022-0 No Unknown 2-28 00:00: 00 Dose 2022-0 No Unknown 2-28 00:00: 00 Dose 2022-0 No Unknown 2-28 00:00: 00 Dose 2022-0 No Unknown 2-28 00:00: 00 Dose 2022-0 No Unknown 2-28 00:00: 00 Dose 2022-0 No Unknown 2-28 00:00: 00 Dose 2022-0 No Unknown 2-28 00:00: 00 Dose 2022-0 No Unknown 2-28 00:00: 00 Dose 2022-0 No Unknown 2-28 00:00: 00 Dose 2022-0 No Unknown 2-28 00:00: 00 Dose 2022-0 No Unknown 2-28 00:00: 00 Dose 2022-0 No Unknown 2-28 00:00: 00 Dose 2022-0 No Unknown 2-28 00:00: 00 Dose 2022-0 No Unknown 2-28 00:00: 00 Dose 2022-0 No Unknown 2-28 00:00: 00 Dose 2022-0 No Unknown 2-28 00:00: 00 Dose 2022-0 No Unknown 2-28 00:00: 00 Dose 2022-0 No Unknown 2-28 00:00: 00 Dose 2022-0 No Unknown 2-28 00:00: 00 Dose 2022-0 No Unknown 2-28 00:00: 00 Dose 2022-0 No Unknown 2-28 00:00: 00 Dose 2022-0 No Unknown 2-28 00:00: 00 Dose 2022-0 No Unknown 2-28 00:00: 00 Dose 2022-0 No Unknown 2-28 00:00: 00 Dose 2022-0 No Unknown 2-28 00:00: 00 Dose 2022-0 No Unknown 2-28 00:00: 00 Dose 2022-0 No Unknown 2-28 00:00: 00 Dose 2022-0 No Unknown 2-28 00:00: 00 Dose 2022-0 No Unknown 2-28 00:00: 00 Dose 2022-0 No Unknown 2-28 00:00: 00 Dose 2022-0 No Unknown 2-28 00:00: 00 Dose 2022-0 No Unknown 2-28 00:00: 00 Dose 2022-0 No Unknown 2-28 00:00: 00 Dose 2022-0 No Unknown 2-28 00:00: 00 Dose 2022-0 No Unknown 2-28 00:00: 00 Dose 2022-0 No Unknown 2-28 00:00: 00 Dose 2022-0 No Unknown 2-28 00:00: 00 Dose 2022-0 No Unknown 2-28 00:00: 00 Dose 2022-0 No Unknown 2-28 00:00: 00 Dose 2022-0 No Unknown 2-28 00:00: 00 Dose 2022-0 No Unknown 2-28 00:00: 00 Dose 2022-0 No Unknown 2-28 00:00: 00 Dose 2022-0 No Unknown 2-28 00:00: 00 Dose 2022-0 No Unknown 2-28 00:00: 00 Dose 2022-0 No Unknown 2-28 00:00: 00 Dose 2022-0 No Unknown 2-28 00:00: 00 Dose 2022-0 No Unknown 2-28 00:00: 00 Dose 2022-0 No Unknown 2-28 00:00: 00 Dose 2022-0 No Unknown 2-28 00:00: 00 Dose 2022-0 No Unknown 2-28 00:00: 00 Dose 2022-0 No Unknown 2-28 00:00: 00 Dose 2022-0 No Unknown 2-28 00:00: 00 Dose 2022-0 No Unknown 2-28 00:00: 00 Dose 2022-0 No Unknown 2-28 00:00: 00 Dose 2022-0 No Unknown 2-28 00:00: 00 Dose 2022-0 No Unknown 2-28 00:00: 00 Dose 2022-0 No Unknown 2-28 00:00: 00 Dose 2022-0 No Unknown 2-28 00:00: 00 Dose 2022-0 No Unknown 2-28 00:00: 00 Dose 2022-0 No Unknown 2-28 00:00: 00 Dose 2022-0 No Unknown 2-28 00:00: 00 Dose 2022-0 No Unknown 2-28 00:00: 00 Dose 2022-0 No Unknown 2-28 00:00: 00 Dose 2022-0 No Unknown 2-28 00:00: 00 Dose 2022-0 No Unknown 2-28 00:00: 00 Dose 2022-0 No Unknown 2-28 00:00: 00 Dose 2022-0 No Unknown 2-28 00:00: 00 Dose 2022-0 No Unknown 2-28 00:00: 00 Dose 2022-0 No Unknown 2-28 00:00: 00 Dose 2022-0 No Unknown 2-28 00:00: 00 Dose 2022-0 No Unknown 2-28 00:00: 00 Dose 2022-0 No Unknown 2-28 00:00: 00 Dose 2022-0 No Unknown 2-28 00:00: 00 Dose 2022-0 No Unknown 2-28 00:00: 00 Dose 2022-0 No Unknown 2-28 00:00: 00 Dose 2022-0 No Unknown 2-28 00:00: 00 Dose 2022-0 No Unknown 2-28 00:00: 00 Dose 2022-0 No Unknown 2-28 00:00: 00 Dose 2022-0 No Unknown 2-28 00:00: 00 Dose 2022-0 No Unknown 2-28 00:00: 00 Dose 2022-0 No Unknown 2-28 00:00: 00 Dose 2022-0 No Unknown 2-28 00:00: 00 Dose 2022-0 No Unknown 2-28 00:00: 00 Dose 2022-0 No Unknown 2-28 00:00: 00 Dose 2022-0 No Unknown 2-28 00:00: 00 Dose 2022-0 No Unknown 2-28 00:00: 00 Dose 2022-0 No Unknown 2-28 00:00: 00 Dose 2022-0 No Unknown 2-28 00:00: 00 Dose 2022-0 No Unknown 2-28 00:00: 00 Dose 2022-0 No Unknown 2-28 00:00: 00 Dose 2022-0 No Unknown 2-28 00:00: 00 Dose 2022-0 No Unknown 2-28 00:00: 00 Dose 2022-0 No Unknown 2-28 00:00: 00 Dose 2022-0 No Unknown 2-28 00:00: 00 Dose 2022-0 No Unknown 2-28 00:00: 00 Dose 2022-0 No Unknown 2-28 00:00: 00 Dose 2022-0 No Unknown 2-28 00:00: 00 Dose 2022-0 No Unknown 2-28 00:00: 00 Dose 2022-0 No Unknown 2-28 00:00: 00 Dose 2022-0 No Unknown 2-28 00:00: 00 Dose 2022-0 No Unknown 2-28 00:00: 00 Dose 2022-0 No Unknown 2-28 00:00: 00 Dose 2022-0 No Unknown 2-28 00:00: 00 Dose 2022-0 No Unknown 2-28 00:00: 00 Dose 2022-0 No Unknown 2-28 00:00: 00 Dose 2022-0 No Unknown 2-28 00:00: 00 Dose 2022-0 No Unknown 2-28 00:00: 00 Dose 2022-0 No Unknown 2-28 00:00: 00 Dose 2022-0 No Unknown 2-28 00:00: 00 Dose 2022-0 No Unknown 2-28 00:00: 00 Dose 2022-0 No Unknown 2-28 00:00: 00 Dose 2022-0 No Unknown 2-28 00:00: 00 Dose 2022-0 No Unknown 2-28 00:00: 00 Dose 2022-0 No Unknown 2-28 00:00: 00 Dose 2022-0 No Unknown 2-28 00:00: 00 Dose 2022-0 No Unknown 2-28 00:00: 00 Dose 2022-0 No Unknown 2-28 00:00: 00 Dose 2022-0 No Unknown 2-28 00:00: 00 Dose 2022-0 No Unknown 2-28 00:00: 00 Dose 2022-0 No Unknown 2-28 00:00: 00 Dose 2022-0 No Unknown 2-28 00:00: 00 Dose 2022-0 No Unknown 2-28 00:00: 00 Dose 2022-0 No Unknown 2-28 00:00: 00 Dose 2022-0 No Unknown 2-28 00:00: 00 Dose 2022-0 No Unknown 2-28 00:00: 00 Dose 2022-0 No Unknown 2-28 00:00: 00 Dose 2022-0 No Unknown 2-28 00:00: 00 Dose 2022-0 No Unknown 2-28 00:00: 00 Dose 2022-0 No Unknown 2-28 00:00: 00 Dose 2022-0 No Unknown 2-28 00:00: 00 Dose 2022-0 No Unknown 2-28 00:00: 00 Dose 2022-0 No Unknown 2-28 00:00: 00 Dose 2022-0 No Unknown 2-28 00:00: 00 Dose 2022-0 No Unknown 2-28 00:00: 00 Dose 2022-0 No Unknown 2-28 00:00: 00 Dose 2022-0 No Unknown 2-28 00:00: 00 Dose 2022-0 No Unknown 2-28 00:00: 00 Dose 2022-0 No Unknown 2-28 00:00: 00 Dose 2022-0 No Unknown 2-28 00:00: 00 Dose 2022-0 No Unknown 2-28 00:00: 00 Dose 2022-0 No Unknown 2-28 00:00: 00 Dose 2022-0 No Unknown 2-28 00:00: 00 Dose 2022-0 No Unknown 2-28 00:00: 00 Dose 2022-0 No Unknown 2-28 00:00: 00 Dose 2022-0 No Unknown 2-28 00:00: 00 Dose 2022-0 No Unknown 2-28 00:00: 00 Dose 2022-0 No Unknown 2-28 00:00: 00 Dose 2022-0 No Unknown 2-28 00:00: 00 Dose 2022-0 No Unknown 2-28 00:00: 00 Dose 2022-0 No Unknown 2-28 00:00: 00 Dose 2022-0 No Unknown 2-28 00:00: 00 Dose 2022-0 No Unknown 2-28 00:00: 00 Dose 2022-0 No Unknown 2-28 00:00: 00 Dose 2022-0 No Unknown 2-28 00:00: 00 Dose 2022-0 No Unknown 2-28 00:00: 00 Dose 2022-0 No Unknown 2-28 00:00: 00 Dose 2022-0 No Unknown 2-28 00:00: 00 Dose 2022-0 No Unknown 2-28 00:00: 00 Dose 2022-0 No Unknown 2-28 00:00: 00 Dose 2022-0 No Unknown 2-28 00:00: 00 Dose 2022-0 No Unknown 2-28 00:00: 00 Dose 2022-0 No Unknown 2-28 00:00: 00 Dose 2022-0 No Unknown 2-28 00:00: 00 Dose 2022-0 No Unknown 2-28 00:00: 00 Dose 2022-0 No Unknown 2-28 00:00: 00 Dose 2022-0 No Unknown 2-28 00:00: 00 Dose 2022-0 No Unknown 2-28 00:00: 00 Dose 2022-0 No Unknown 2-28 00:00: 00 Dose 2022-0 No Unknown 2-28 00:00: 00 Dose 2022-0 No Unknown 2-28 00:00: 00 Dose 2022-0 No Unknown 2-28 00:00: 00 Dose 2022-0 No Unknown 2-28 00:00: 00 Dose 2022-0 No Unknown 2-28 00:00: 00 Dose 2022-0 No Unknown 2-28 00:00: 00 Dose 2022-0 No Unknown 2-28 00:00: 00 Dose 2022-0 No Unknown 2-28 00:00: 00 Dose 2022-0 No Unknown 2-28 00:00: 00 Dose 2022-0 No Unknown 2-28 00:00: 00 Dose 2022-0 No Unknown 2-28 00:00: 00 Dose 2022-0 No Unknown 2-28 00:00: 00 Dose 2022-0 No Unknown 2-28 00:00: 00 Dose 2022-0 No Unknown 2-28 00:00: 00 Dose 2022-0 No Unknown 2-28 00:00: 00 Dose 2022-0 No Unknown 2-28 00:00: 00 Dose 2022-0 No Unknown 2-28 00:00: 00 Dose 2022-0 No Unknown 2-28 00:00: 00 Dose 2022-0 No Unknown 2-28 00:00: 00 Dose 2022-0 No Unknown 2-28 00:00: 00 Dose 2022-0 No Unknown 2-28 00:00: 00 Dose 2022-0 No Unknown 2-28 00:00: 00 Dose 2022-0 No Unknown 2-28 00:00: 00 Dose 2022-0 No Unknown 2-28 00:00: 00 Dose 2022-0 No Unknown 2-28 00:00: 00 Dose 2022-0 No Unknown 2-28 00:00: 00 Dose 2022-0 No Unknown 2-28 00:00: 00 Dose 2022-0 No Unknown 2-28 00:00: 00 Dose 2022-0 No Unknown 2-28 00:00: 00 Dose 2022-0 No Unknown 2-28 00:00: 00 Dose 2022-0 No Unknown 2-28 00:00: 00 Dose 2022-0 No Unknown 2-28 00:00: 00 Dose 2022-0 No Unknown 2-28 00:00: 00 Dose 2022-0 No Unknown 2-28 00:00: 00 Dose 2022-0 No Unknown 2-28 00:00: 00 Dose 2022-0 No Unknown 2-28 00:00: 00 Dose 2022-0 No Unknown 2-28 00:00: 00 Dose 2022-0 No Unknown 2-28 00:00: 00 Dose 2022-0 No Unknown 2-28 00:00: 00 Dose 2021-1 No Unknown 1-18 00:00: 00 Dose 2021-1 No Unknown 1-18 00:00: 00 Dose 2021-1 No Unknown 1-18 00:00: 00 Dose 2021-1 No Unknown 1-18 00:00: 00 Dose 2021-1 No Unknown 1-18 00:00: 00 Dose 1-1 No Unknown 1-18 00:00: 00 Dose 1-1 No Unknown 1-17 00:00: 00 Dose 1-1 No Unknown 1-17 00:00: 00 Dose 1-1 No Unknown 1-17 00:00: 00 Dose 1-1 No Unknown 1-17 00:00: 00 Dose 1-1 No Unknown 1-17 00:00: 00 Dose 1-1 No Unknown 1-17 00:00: 00 Dose 2020-0 No Unknown 916 00:00: 00 Dose 2020-0 No Unknown 06-24 00:00: 00 Dose 2020-0 No Unknown 06-24 00:00: 00 Dose 2020-0 No Unknown 06-24 00:00: 00 Dose 2020-0 No Unknown 06-24 00:00: 00 Dose 2020-0 No Unknown 06-24 00:00: 00 Dose 2020-0 No Unknown 06-15 00:00: 00 Dose 2020-0 No Unknown 06-15 00:00: 00 Dose 2020-0 No Unknown 06-15 00:00: 00 Dose 2020-0 No Unknown 06-15 00:00: 00 Dose 2020-0 No Unknown 06-15 00:00: 00 Dose 2020-0 No Unknown 06-15 00:00: 00 mupirocin 2 2020-0 No 1% % topical 9-02 ointment 00:00: 00 Dose 2020-0 No Unknown 9 00:00: 00 Novolin 1-0 No 1unit/m 70/30 U-100 9-02 L Insulin 100 00:00: (70-30) unit/mL 00 subcutaneou s suspension mupirocin 2 2020-0 No 1% % topical 9-02 ointment 00:00: 00 Dose 2020-0 No Unknown 9- 00:00: 00 Novolin 1-0 No 1unit/m 70/30 U-100 9-02 L Insulin 100 00:00: (70-30) unit/mL 00 subcutaneou s suspension mupirocin 2 2020-0 No 1% % topical 9-02 ointment 00:00: 00 Dose 1-0 No Unknown 9-02 00:00: 00 Novolin 1-0 No 1unit/m 70/30 U-100 9-02 L Insulin 100 00:00: (70-30) unit/mL 00 subcutaneou s suspension mupirocin 2 2020-0 No 1% % topical 9-02 ointment 00:00: 00 Dose 1-0 No Unknown 9-02 00:00: 00 Novolin 1-0 No 1unit/m 70/30 U-100 9-02 L Insulin 100 00:00: (70-30) unit/mL 00 subcutaneou s suspension mupirocin 2 1-0 No 1% % topical 06-10 ointment 00:00: 00 Dose 2021-0 No Unknown 06-10 00:00: 00 Novolin 2021-0 No 1unit/m 70/30 U-100 9-02 L Insulin 100 00:00: (70-30) unit/mL 00 subcutaneou s suspension mupirocin 2 1-0 No 1% % topical 06-10 ointment 00:00: 00 Dose 2021-0 No Unknown 06-10 00:00: 00 Novolin 2021-0 No 1unit/m 70/30 U-100 - L Insulin 100 00:00: (70-30) unit/mL 00 subcutaneou s suspension prednisone 1-0 No 1mg 5 mg tablet 06-01 00:00: 00 prednisone 2021-0 No 1mg 5 mg tablet 06-01 00:00: 00 prednisone 2021-0 No 1mg 5 mg tablet 06-01 00:00: 00 prednisone 2021-0 No 1mg 5 mg tablet 06-01 00:00: 00 prednisone 2021-0 No 1mg 5 mg tablet 06-01 00:00: 00 prednisone 2021-0 No 1mg 5 mg tablet 06-01 00:00: 00 Zofran 4 mg 1-0 No 1mg tablet 05-03 00:00: 00 Zofran 4 mg 1-0 No 1mg tablet 05-03 00:00: 00 Zofran 4 mg 1-0 No 1mg tablet 05-03 00:00: 00 Zofran 4 mg 1-0 No 1mg tablet 05-03 00:00: 00 Zofran 4 mg 1-0 No 1mg tablet 05-03 00:00: 00 Zofran 4 mg 1-0 No 1mg tablet 05-03 00:00: 00 medroxyprog 2021-0 No 1mg/mL esterone 6-11 150 mg/mL 00:00: intramuscul 00 ar suspension medroxyprog 2021-0 No 1mg/mL esterone 6-11 150 mg/mL 00:00: intramuscul 00 ar suspension medroxyprog 2021-0 No 1mg/mL esterone 6-11 150 mg/mL 00:00: intramuscul 00 ar suspension medroxyprog 2021-0 No 1mg/mL esterone 6-11 150 mg/mL 00:00: intramuscul 00 ar suspension medroxyprog 2021-0 No 1mg/mL esterone 6-11 150 mg/mL 00:00: intramuscul 00 ar suspension medroxyprog 2021-0 No 1mg/mL esterone 6-11 150 mg/mL 00:00: intramuscul 00 ar suspension Dose 2020-0 No Unknown 4-17 00:00: 00 Dose 2020-0 No Unknown 4-17 00:00: 00 Dose 2020-0 No Unknown 4-17 00:00: 00 Dose 2020-0 No Unknown 4-17 00:00: 00 Dose 2020-0 No Unknown 4-17 00:00: 00 Dose 2020-0 No Unknown 4-17 00:00: 00 Dose 2020-0 No Unknown 4-17 00:00: 00 Dose 2020-0 No Unknown 4-17 00:00: 00 Dose 2020-0 No Unknown 4-17 00:00: 00 Dose 2020-0 No Unknown 4-17 00:00: 00 Dose 2020-0 No Unknown 4-17 00:00: 00 Dose 2020-0 No Unknown 4-17 00:00: 00 Cortisporin 2020-0 No 4mg/mL -TC 3.3 2-06 mg-3 mg-10 00:00: mg-0.5 00 mg/mL ear drops,suspe nsion Bromfed DM 2019-0 No 10mg/5 2 mg-30 2-06 mL mg-10 mg/5 00:00: mL oral 00 syrup Cortisporin 2020-0 No 4mg/mL -TC 3.3 2-06 mg-3 mg-10 00:00: mg-0.5 00 mg/mL ear drops,suspe nsion Bromfed DM 2020-0 No 10mg/5 2 mg-30 2-06 mL mg-10 mg/5 00:00: mL oral 00 syrup Cortisporin 2020-0 No 4mg/mL -TC 3.3 2-06 mg-3 mg-10 00:00: mg-0.5 00 mg/mL ear drops,suspe nsion Bromfed DM 2019-0 No 10mg/5 2 mg-30 2-06 mL mg-10 mg/5 00:00: mL oral 00 syrup Cortisporin 2020-0 No 4mg/mL -TC 3.3 2-06 mg-3 mg-10 00:00: mg-0.5 00 mg/mL ear drops,suspe hreber Jimenez DM 2020-0 No 10mg/5 2 mg-30 2-06 mL mg-10 mg/5 00:00: mL oral 00 syrup Cortisporin 2020-0 No 4mg/mL -TC 3.3 2-06 mg-3 mg-10 00:00: mg-0.5 00 mg/mL ear drops,suspe herber Jimenez DM 2020-0 No 10mg/5 2 mg-30 2-06 mL mg-10 mg/5 00:00: mL oral 00 syrup Cortisporin 2020-0 No 4mg/mL -TC 3.3 2-06 mg-3 mg-10 00:00: mg-0.5 00 mg/mL ear drops,suspjulieth Jimenez DM 2020-0 No 10mg/5 2 mg-30 2-06 mL mg-10 mg/5 00:00: mL oral 00 syrup Bactrim DS 2019-0 No 1mg 800 mg-160 9-18 mg tablet 00:00: 00 tramadol 2019-0 No 1mg 37.5 9-18 mg-acetamin 00:00: ophen 325 00 mg tablet Bactrim DS 2019-0 No 1mg 800 mg-160 9-18 mg tablet 00:00: 00 tramadol 2019-0 No 1mg 37.5 9-18 mg-acetamin 00:00: ophen 325 00 mg tablet Bactrim DS 2019-0 No 1mg 800 mg-160 9-18 mg tablet 00:00: 00 tramadol 2019-0 No 1mg 37.5 9-18 mg-acetamin 00:00: ophen 325 00 mg tablet Bactrim DS 2019-0 No 1mg 800 mg-160 9-18 mg tablet 00:00: 00 tramadol 2019-0 No 1mg 37.5 9-18 mg-acetamin 00:00: ophen 325 00 mg tablet Bactrim DS 2019-0 No 1mg 800 mg-160 9-18 mg tablet 00:00: 00 tramadol 2019-0 No 1mg 37.5 9-18 mg-acetamin 00:00: ophen 325 00 mg tablet Bactrim DS 2019-0 No 1mg 800 mg-160 9-18 mg tablet 00:00: 00 tramadol 2019-0 No 1mg 37.5 9-18 mg-acetamin 00:00: ophen 325 00 mg tablet amoxicillin 2019-0 No 1mg 875 mg 2-15 tablet 00:00: 00 amoxicillin 2019-0 No 1mg 875 mg 2-15 tablet 00:00: 00 amoxicillin 2019-0 No 1mg 875 mg 2-15 tablet 00:00: 00 amoxicillin 2019-0 No 1mg 875 mg 2-15 tablet 00:00: 00 amoxicillin 2019-0 No 1mg 875 mg 2-15 tablet 00:00: 00 amoxicillin 2019-0 No 1mg 875 mg 2-15 tablet 00:00: 00 levothyroxi 2018-0 No 1mcg ne 100 mcg 9-12 tablet 00:00: 00 levothyroxi 2018-0 No 1mcg ne 100 mcg 9-12 tablet 00:00: 00 liothyronin 2018-0 No 1mcg e 5 mcg 9-12 tablet 00:00: 00 buspirone 2018-0 No 1mg 10 mg 9-12 tablet 00:00: 00 levothyroxi 2018-0 No 1mcg ne 100 mcg 9-12 tablet 00:00: 00 levothyroxi 2018-0 No 1mcg ne 100 mcg 9-12 tablet 00:00: 00 liothyronin 2018-0 No 1mcg e 5 mcg 9-12 tablet 00:00: 00 buspirone 2018-0 No 1mg 10 mg 9-12 tablet 00:00: 00 levothyroxi 2018-0 No 1mcg ne 100 mcg 9-12 tablet 00:00: 00 levothyroxi 2018-0 No 1mcg ne 100 mcg 9-12 tablet 00:00: 00 liothyronin 2018-0 No 1mcg e 5 mcg 9-12 tablet 00:00: 00 buspirone 2018-0 No 1mg 10 mg 9-12 tablet 00:00: 00 buspirone 2018-0 No 1mg 10 mg 9-12 tablet 00:00: 00 levothyroxi 2018-0 No 1mcg ne 100 mcg 9-12 tablet 00:00: 00 levothyroxi 2018-0 No 1mcg ne 100 mcg 9-12 tablet 00:00: 00 liothyronin 2018-0 No 1mcg e 5 mcg 9-12 tablet 00:00: 00 levothyroxi 2018-0 No 1mcg ne 100 mcg 9-12 tablet 00:00: 00 levothyroxi 2018-0 No 1mcg ne 100 mcg 9-12 tablet 00:00: 00 buspirone 2018-0 No 1mg 10 mg 9-12 tablet 00:00: 00 levothyroxi 2018-0 No 1mcg ne 100 mcg 9-12 tablet 00:00: 00 levothyroxi 2018-0 No 1mcg ne 100 mcg 9-12 tablet 00:00: 00 liothyronin 2018-0 No 1mcg e 5 mcg 9-12 tablet 00:00: 00 liothyronin 2018-0 No 1mcg e 5 mcg 9-12 tablet 00:00: 00 buspirone 2018-0 No 1mg 10 mg 9-12 tablet 00:00: 00 ferrous 2017-0 No 1(65 mg sulfate 325 4-20 iron) mg (65 mg 00:00: iron) 00 tablet ferrous 2017-0 No 1(65 mg sulfate 325 4-20 iron) mg (65 mg 00:00: iron) 00 tablet levothyroxi 2017-0 No 1mcg ne 100 mcg 4-20 tablet 00:00: 00 levothyroxi 2017-0 No 1mcg ne 100 mcg 4-20 tablet 00:00: 00 ferrous 2017-0 No 1(65 mg sulfate 325 4-20 iron) mg (65 mg 00:00: iron) 00 tablet ferrous 2017-0 No 1(65 mg sulfate 325 4-20 iron) mg (65 mg 00:00: iron) 00 tablet ferrous 2017-0 No 1(65 mg sulfate 325 4-20 iron) mg (65 mg 00:00: iron) 00 tablet ferrous 2017-0 No 1(65 mg sulfate 325 4-20 iron) mg (65 mg 00:00: iron) 00 tablet levothyroxi 2017-0 No 1mcg ne 100 mcg 4-20 tablet 00:00: 00 levothyroxi 2017-0 No 1mcg ne 100 mcg 4-20 tablet 00:00: 00 levothyroxi 2017-0 No 1mcg ne 100 mcg 4-20 tablet 00:00: 00 ferrous 2017-0 No 1(65 mg sulfate 325 4-20 iron) mg (65 mg 00:00: iron) 00 tablet ferrous 2017-0 No 1(65 mg sulfate 325 4-20 iron) mg (65 mg 00:00: iron) 00 tablet levothyroxi 2017-0 No 1mcg ne 100 mcg 4-20 tablet 00:00: 00 levothyroxi 2017-0 No 1mcg ne 100 mcg 4-20 tablet 00:00: 00 levothyroxi 2017-0 No 1mcg ne 100 mcg 4-20 tablet 00:00: 00 ferrous 2017-0 No 1(65 mg sulfate 325 4-20 iron) mg (65 mg 00:00: iron) 00 tablet ferrous 2017-0 No 1(65 mg sulfate 325 4-20 iron) mg (65 mg 00:00: iron) 00 tablet levothyroxi 2017-0 No 1mcg ne 100 mcg 4-20 tablet 00:00: 00 levothyroxi 2017-0 No 1mcg ne 100 mcg 4-20 tablet 00:00: 00 ferrous 2017-0 No 1(65 mg sulfate 325 4-20 iron) mg (65 mg 00:00: iron) 00 tablet ferrous 2017-0 No 1(65 mg sulfate 325 4-20 iron) mg (65 mg 00:00: iron) 00 tablet levothyroxi 2017-0 No 1mcg ne 100 mcg 4-20 tablet 00:00: 00 levothyroxi 2017-0 No 1mcg ne 100 mcg 4-20 tablet 00:00: 00 Immunizations Ordered Immunization Filled Immunization Date Status Commen ts Source Name Name Talha COVID-19 2021-06-24 Completed Vaccine 00:00:00 Moderna COVID-19 2021-06-24 Completed Vaccine 00:00:00 Moderna COVID-19 2021-06-24 Completed Vaccine 00:00:00 Moderna COVID-19 2021-06-24 Completed Vaccine 00:00:00 Moderna COVID-19 2021-06-24 Completed Vaccine 00:00:00 Moderna COVID-19 2021-06-24 Completed Vaccine 00:00:00 Tdap 2018-11-23 Completed 00:00:00 Tdap 2018-11-23 Completed 00:00:00 Tdap 2018-11-23 Completed 00:00:00 Tdap 2018-11-23 Completed 00:00:00 Tdap 2018-11-23 Completed 00:00:00 Tdap 2018-11-23 Completed 00:00:00 Vital Signs Vital Name Observation Time Observation Value Comments Source BP Systolic 2022-10-31 16:15:00 120 mm[Hg] BP Diastolic 2022-10-31 16:15:00 84 mm[Hg] Weight Measured 2022-10-31 16:15:00 273.80 pounds Height Measured 2022-10-31 16:15:00 66.00 inches Body Temperature 2022-10-31 16:15:00 98.60 degrees Heart Rate 2022-10-31 16:15:00 83.00 /min Respiratory Rate 2022-10-31 16:15:00 18.00 /min BP Systolic 2022-08-11 14:50:00 134 mm[Hg] BP Diastolic 2022-08-11 14:50:00 87 mm[Hg] Weight Measured 2022-08-11 14:50:00 271.60 pounds Height Measured 2022-08-11 14:50:00 66.00 inches Body Temperature 2022-08-11 14:50:00 98.30 degrees Heart Rate 2022-08-11 14:50:00 91.00 /min Respiratory Rate 2022-08-11 14:50:00 18.00 /min BP Systolic 2022-05-20 10:51:00 129 mm[Hg] BP Diastolic 2022-05-20 10:51:00 78 mm[Hg] Weight Measured 2022-05-20 10:51:00 268.60 pounds Height Measured 2022-05-20 10:51:00 66.00 inches Body Temperature 2022-05-20 10:51:00 98.30 degrees Heart Rate 2022-05-20 10:51:00 67.00 /min Respiratory Rate 2022-05-20 10:51:00 16.00 /min BP Systolic 2022-05-10 15:13:00 126 mm[Hg] BP Diastolic 2022-05-10 15:13:00 88 mm[Hg] Weight Measured 2022-05-10 15:13:00 269.40 pounds Height Measured 2022-05-10 15:13:00 66.00 inches Body Temperature 2022-05-10 15:13:00 98.40 degrees Heart Rate 2022-05-10 15:13:00 85.00 /min Respiratory Rate 2022-05-10 15:13:00 18.00 /min BP Systolic 2022-03-04 08:16:00 122 mm[Hg] BP Diastolic 2022-03-04 08:16:00 75 mm[Hg] Weight Measured 2022-03-04 08:16:00 264.40 pounds Height Measured 2022-03-04 08:16:00 66.00 inches Body Temperature 2022-03-04 08:16:00 98.30 degrees Heart Rate 2022-03-04 08:16:00 85.00 /min Respiratory Rate 2022-03-04 08:16:00 17.00 /min BP Systolic 2021-12-06 15:16:00 138 mm[Hg] BP Diastolic 2021-12-06 15:16:00 82 mm[Hg] Weight Measured 2021-12-06 15:16:00 264.00 pounds Height Measured 2021-12-06 15:16:00 66.00 inches Body Temperature 2021-12-06 15:16:00 98.40 degrees Heart Rate 2021-12-06 15:16:00 87.00 /min Respiratory Rate 2021-12-06 15:16:00 18.00 /min BP Systolic 2021-08-31 10:31:00 135 mm[Hg] BP Diastolic 2021-08-31 10:31:00 78 mm[Hg] Weight Measured 2021-08-31 10:31:00 255.00 pounds Height Measured 2021-08-31 10:31:00 Body Temperature 2021-08-31 10:31:00 98.30 degrees Heart Rate 2021-08-31 10:31:00 76.00 /min Respiratory Rate 2021-08-31 10:31:00 17.00 /min BP Systolic 2021-07-23 15:33:00 125 mm[Hg] BP Diastolic 2021-07-23 15:33:00 83 mm[Hg] Weight Measured 2021-07-23 15:33:00 256.40 pounds Height Measured 2021-07-23 15:33:00 66.00 inches Body Temperature 2021-07-23 15:33:00 98.30 degrees Heart Rate 2021-07-23 15:33:00 90.00 /min Respiratory Rate 2021-07-23 15:33:00 17.00 /min BP Systolic 2021-06-24 10:23:00 127 mm[Hg] BP Diastolic 2021-06-24 10:23:00 74 mm[Hg] Weight Measured 2021-06-24 10:23:00 257.40 pounds Height Measured 2021-06-24 10:23:00 66.00 inches Body Temperature 2021-06-24 10:23:00 98.30 degrees Heart Rate 2021-06-24 10:23:00 96.00 /min Respiratory Rate 2021-06-24 10:23:00 BP Systolic 2021-06-15 10:00:00 122 mm[Hg] BP Diastolic 2021-06-15 10:00:00 85 mm[Hg] Weight Measured 2021-06-15 10:00:00 255.40 pounds Height Measured 2021-06-15 10:00:00 66.00 inches Body Temperature 2021-06-15 10:00:00 98.40 degrees Heart Rate 2021-06-15 10:00:00 107.00 /min Respiratory Rate 2021-06-15 10:00:00 16.00 /min BP Systolic 2021-06-10 11:46:00 144 mm[Hg] BP Diastolic 2021-06-10 11:46:00 83 mm[Hg] Weight Measured 2021-06-10 11:46:00 252.40 pounds Height Measured 2021-06-10 11:46:00 66.00 inches Body Temperature 2021-06-10 11:46:00 98.10 degrees Heart Rate 2021-06-10 11:46:00 100.00 /min Respiratory Rate 2021-06-10 11:46:00 17.00 /min BP Systolic 2021-06-10 11:35:00 144 mm[Hg] BP Diastolic 2021-06-10 11:35:00 83 mm[Hg] Weight Measured 2021-06-10 11:35:00 252.40 pounds Height Measured 2021-06-10 11:35:00 66.00 inches Body Temperature 2021-06-10 11:35:00 98.10 degrees Heart Rate 2021-06-10 11:35:00 100.00 /min Respiratory Rate 2021-06-10 11:35:00 17.00 /min BP Systolic 2021-03-19 14:36:00 115 mm[Hg] BP Diastolic 2021-03-19 14:36:00 74 mm[Hg] Weight Measured 2021-03-19 14:36:00 270.00 pounds Height Measured 2021-03-19 14:36:00 66.00 inches Body Temperature 2021-03-19 14:36:00 98.00 degrees Heart Rate 2021-03-19 14:36:00 86.00 /min Respiratory Rate 2021-03-19 14:36:00 18.00 /min Procedures This patient has no known procedures. Plan of Care Planned Activity Planned Date Details Comments Source Goal Plan of Care Note [code = 98811-3] Goal Plan of Care Note [code = 19373-3] Goal Plan of Care Note [code = 40455-1] Goal Plan of Care Note [code = 67061-9] Goal Plan of Care Note [code = 94079-7] Goal Plan of Care Note [code = 10744-6] Goal Plan of Care Note [code = 30478-2] Goal Plan of Care Note [code = 30724-5] Goal Plan of Care Note [code = 30818-3] Goal Plan of Care Note [code = 63978-3] Goal Plan of Care Note [code = 64215-4] Goal Plan of Care Note [code = 94140-4] Goal Plan of Care Note [code = 14530-3] Goal Plan of Care Note [code = 62884-4] Goal Plan of Care Note [code = 99128-4] Goal Plan of Care Note [code = 56369-0] Goal Plan of Care Note [code = 62636-1] Goal Plan of Care Note [code = 95271-6] Goal Plan of Care Note [code = 75293-9] Goal Plan of Care Note [code = 14297-9] Goal Plan of Care Note [code = 29417-9] Goal Plan of Care Note [code = 23779-3] Goal Plan of Care Note [code = 80556-0] Goal Plan of Care Note [code = 58039-7] Goal Plan of Care Note [code = 83940-8] Goal Plan of Care Note [code = 94010-8] Goal Plan of Care Note [code = 77412-6] Goal Plan of Care Note [code = 93910-0] Goal Plan of Care Note [code = 36969-7] Goal Plan of Care Note [code = 20059-4] Goal Plan of Care Note [code = 48779-0] Goal Plan of Care Note [code = 40187-7] Goal Plan of Care Note [code = 95182-7] Goal Plan of Care Note [code = 65996-4] Goal Plan of Care Note [code = 34841-4] Goal Plan of Care Note [code = 14108-4] Goal Plan of Care Note [code = 25390-7] Goal Plan of Care Note [code = 46293-1] Goal Plan of Care Note [code = 00028-8] Goal Plan of Care Note [code = 99533-7] Goal Plan of Care Note [code = 43318-3] Goal Plan of Care Note [code = 24032-8] Goal Plan of Care Note [code = 97145-3] Goal Plan of Care Note [code = 30382-8] Goal Plan of Care Note [code = 44262-7] Goal Plan of Care Note [code = 73460-0] Goal Plan of Care Note [code = 01493-9] Goal Plan of Care Note [code = 41474-4] Goal Plan of Care Note [code = 97565-4] Goal Plan of Care Note [code = 68378-0] Goal Plan of Care Note [code = 95465-6] Goal Plan of Care Note [code = 17867-8] Goal Plan of Care Note [code = 21504-3] Goal Plan of Care Note [code = 87262-3] Goal Plan of Care Note [code = 94646-5] Goal Plan of Care Note [code = 27871-1] Goal Plan of Care Note [code = 35457-7] Goal Plan of Care Note [code = 33047-0] Goal Plan of Care Note [code = 79120-0] Goal Plan of Care Note [code = 03714-3] Goal Plan of Care Note [code = 74547-8] Goal Plan of Care Note [code = 50480-0] Goal Plan of Care Note [code = 86426-1] Goal Plan of Care Note [code = 64170-5] Goal Plan of Care Note [code = 29659-3] Goal Plan of Care Note [code = 40435-8] Goal Plan of Care Note [code = 68266-6] Goal Plan of Care Note [code = 93208-5] Goal Plan of Care Note [code = 98573-0] Goal Plan of Care Note [code = 51470-7] Goal Plan of Care Note [code = 22828-3] Goal Plan of Care Note [code = 98121-8] Goal Plan of Care Note [code = 79825-0] Goal Plan of Care Note [code = 31897-3] Goal Plan of Care Note [code = 44051-5] Goal Plan of Care Note [code = 33520-0] Goal Plan of Care Note [code = 07206-6] Goal Plan of Care Note [code = 95458-2] Goal Plan of Care Note [code = 85682-3] Goal Plan of Care Note [code = 50766-3] Goal Plan of Care Note [code = 11263-7] Goal Plan of Care Note [code = 08098-3] Goal Plan of Care Note [code = 93371-2] Goal Plan of Care Note [code = 18567-5] Goal Plan of Care Note [code = 86322-3] Goal Plan of Care Note [code = 65887-7] Goal Plan of Care Note [code = 00029-1] Goal Plan of Care Note [code = 00080-6] Goal Plan of Care Note [code = 25892-0] Goal Plan of Care Note [code = 24232-4] Goal Plan of Care Note [code = 09696-9] Goal Plan of Care Note [code = 39977-8] Goal Plan of Care Note [code = 14552-0] Goal Plan of Care Note [code = 59546-6] Goal Plan of Care Note [code = 66837-0] Goal Plan of Care Note [code = 62197-9] Goal Plan of Care Note [code = 40234-6] Goal Plan of Care Note [code = 07360-3] Goal Plan of Care Note [code = 74484-0] Goal Plan of Care Note [code = 33492-7] Goal Plan of Care Note [code = 72793-1] Goal Plan of Care Note [code = 59124-7] Goal Plan of Care Note [code = 15467-7] Goal Plan of Care Note [code = 97908-8] Goal Plan of Care Note [code = 67878-0] Goal Plan of Care Note [code = 94996-7] Goal Plan of Care Note [code = 31043-1] Goal Plan of Care Note [code = 33461-4] Goal Plan of Care Note [code = 70786-4] Goal Plan of Care Note [code = 72056-8] Goal Plan of Care Note [code = 25352-7] Goal Plan of Care Note [code = 79501-3] Goal Plan of Care Note [code = 80522-5] Goal Plan of Care Note [code = 94764-6] Goal Plan of Care Note [code = 41848-1] Goal Plan of Care Note [code = 06292-1] Goal Plan of Care Note [code = 72730-8] Goal Plan of Care Note [code = 64278-5] Goal Plan of Care Note [code = 99499-7] Goal Plan of Care Note [code = 39768-4] Goal Plan of Care Note [code = 33210-1] Goal Plan of Care Note [code = 64046-0] Goal Plan of Care Note [code = 76342-0] Goal Plan of Care Note [code = 23671-8] Goal Plan of Care Note [code = 44920-5] Goal Plan of Care Note [code = 28062-8] Goal Plan of Care Note [code = 67963-7] Goal Plan of Care Note [code = 63069-5] Goal Plan of Care Note [code = 96205-0] Goal Plan of Care Note [code = 23953-4] Goal Plan of Care Note [code = 39486-5] Goal Plan of Care Note [code = 82018-7] Goal Plan of Care Note [code = 85384-9] Goal Plan of Care Note [code = 52893-1] Goal Plan of Care Note [code = 58242-2] Goal Plan of Care Note [code = 03155-9] Goal Plan of Care Note [code = 64700-1] Goal Plan of Care Note [code = 89869-4] Goal Plan of Care Note [code = 81344-9] Goal Plan of Care Note [code = 97479-6] Goal Plan of Care Note [code = 58012-0] Goal Plan of Care Note [code = 90263-8] Goal Plan of Care Note [code = 79616-3] Goal Plan of Care Note [code = 22362-9] Goal Plan of Care Note [code = 93822-1] Goal Plan of Care Note [code = 10279-3] Goal Plan of Care Note [code = 85361-6] Goal Plan of Care Note [code = 07623-8] Goal Plan of Care Note [code = 24939-3] Goal Plan of Care Note [code = 47608-1] Goal Plan of Care Note [code = 29723-7] Goal Plan of Care Note [code = 36217-4] Goal Plan of Care Note [code = 52764-9] Goal Plan of Care Note [code = 81786-0] Goal Plan of Care Note [code = 08816-4] Goal Plan of Care Note [code = 57203-6] Goal Plan of Care Note [code = 83701-5] Goal Plan of Care Note [code = 63487-4] Goal Plan of Care Note [code = 40066-3] Goal Plan of Care Note [code = 65622-0] Goal Plan of Care Note [code = 07029-1] Goal Plan of Care Note [code = 86864-7] Goal Plan of Care Note [code = 94487-7] Goal Plan of Care Note [code = 12605-5] Goal Plan of Care Note [code = 76463-9] Goal Plan of Care Note [code = 63671-5] Goal Plan of Care Note [code = 25997-2] Goal Plan of Care Note [code = 59651-2] Goal Plan of Care Note [code = 84136-0] Goal Plan of Care Note [code = 67823-1] Goal Plan of Care Note [code = 63516-8] Goal Plan of Care Note [code = 88036-4] Goal Plan of Care Note [code = 51169-1] Goal Plan of Care Note [code = 72980-0] Goal Plan of Care Note [code = 62098-8] Goal Plan of Care Note [code = 14041-0] Goal Plan of Care Note [code = 61576-4] Goal Plan of Care Note [code = 77134-8] Goal Plan of Care Note [code = 45932-6] Goal Plan of Care Note [code = 49446-6] Goal Plan of Care Note [code = 08753-3] Goal Plan of Care Note [code = 44522-1] Goal Plan of Care Note [code = 14536-5] Goal Plan of Care Note [code = 55735-9] Goal Plan of Care Note [code = 94180-3] Goal Plan of Care Note [code = 32854-5] Goal Plan of Care Note [code = 65677-2] Goal Plan of Care Note [code = 07291-1] Goal Plan of Care Note [code = 86653-6] Goal Plan of Care Note [code = 07956-9] Goal Plan of Care Note [code = 23728-7] Goal Plan of Care Note [code = 68344-9] Goal Plan of Care Note [code = 31564-4] Goal Plan of Care Note [code = 66993-4] Goal Plan of Care Note [code = 92065-2] Goal Plan of Care Note [code = 00645-5] Goal Plan of Care Note [code = 90720-8] Goal Plan of Care Note [code = 33288-7] Goal Plan of Care Note [code = 71626-9] Goal Plan of Care Note [code = 84152-1] Goal Plan of Care Note [code = 08831-2] Goal Plan of Care Note [code = 45362-1] Goal Plan of Care Note [code = 01909-3] Goal Plan of Care Note [code = 40764-3] Goal Plan of Care Note [code = 33598-1] Goal Plan of Care Note [code = 66495-6] Goal Plan of Care Note [code = 83805-8] Goal Plan of Care Note [code = 68824-5] Goal Plan of Care Note [code = 08328-0] Goal Plan of Care Note [code = 80825-6] Goal Plan of Care Note [code = 43195-1] Goal Plan of Care Note [code = 17110-7] Goal Plan of Care Note [code = 64845-5] Goal Plan of Care Note [code = 96031-7] Goal Plan of Care Note [code = 94958-8] Goal Plan of Care Note [code = 27369-1] Goal Plan of Care Note [code = 19887-1] Goal Plan of Care Note [code = 05049-1] Goal Plan of Care Note [code = 29727-2] Goal Plan of Care Note [code = 09487-0] Goal Plan of Care Note [code = 90855-1] Goal Plan of Care Note [code = 20462-1] Goal Plan of Care Note [code = 62241-5] Goal Plan of Care Note [code = 11831-0] Goal Plan of Care Note [code = 91758-8] Goal Plan of Care Note [code = 91876-4] Goal Plan of Care Note [code = 84584-5] Encounters Start End Encounter Admission Attending Care Care Encounter Source Date/Time Date/Time Type Type Clinicians Facility Department ID 2023-05-03 2023-05-03 Outpatient SFA SFA 023 [facility] 13:03:34 13:03:34 0726 [facility] 2023-05-02 2023-05-02 Outpatient SFA SFA 023 [facility] 13:40:38 13:40:38 0725 [facility] [place] 2023-02-07 2023-02-07 Outpatient SFA SFA 023 [facility] 14:17:12 14:17:12 0502 [facility] 2022-11-02 2022-11-02 Outpatient SFA SFA 023 [facility] 14:59:01 14:59:01 0125 [facility] 2022-10-31 2022-10-31 Outpatient SFA SFA 023 [place] 16:09:17 16:09:17 0123 [facility] 2022-10-31 2022-10-31 Outpatient [id number] xp25ue-y 00:00:00 00:00:00 Visit bbc9-4489 bc9-4489-9 -9094-5d3 094-1b5520 [id number] 9472-11-03 2022-08-11 Outpatient SFA SFA 022 [facility] 14:41:35 14:41:35 1103 [facility] [place] 2022-08-11 2022-08-11 Outpatient [id number] [id number] 00:00:00 00:00:00 Visit 8u5m-834e q8b-970b-i -v6ij-lz0 0ab-ad7a1d b6l5264o5 0820a0 2022-07-25 2022-07-25 Outpatient DOTTIE SFA [id number] 022 [facility] 13:07:55 13:07:55 1017 [facility] 2022-07-25 2022-07-25 Outpatient [id number] cc [id number] 00:00:00 00:00:00 Visit t6w0-35d1 4w8-87j2-4 -8500-db2 500-db2f1d l2ql30097 g94720 2022-06-06 2022-06-06 Outpatient [id number] 93b0s7-6 00:00:00 00:00:00 Visit 0k95-2i4e u25-2d4b-z -vf45-003 m63-092s42 l70y90t42 d91e80 2022-05-20 2022-05-20 Outpatient [id number] 00:00:00 00:00:00 Visit t339-30k9 063-40e0-a -f35c-679 64a-1756ed 5mobg3b6u bf6a3f 2022-05-10 2022-05-10 Outpatient 7ptdk0s0- [id number] bxj2u5-8 00:00:00 00:00:00 Visit 5cv9-500q be1-435f-8 -8301-5f8 301-6n385n 82m06f168 86m715 Results Test Description Test Time Test Comments Results Result Comments Source SARS-CoV-2 (COVID-19), RT-PCR/TMA 2021-12-10 08:48:24 Test Item Value Reference Range Interpretation Comme nts SARS-CoV-2 INTERPRETATION NEGATIVE SEE NOTE S ARS-CoV-2 RNA NOT (test code = 10769) DETECTED Negative results do not preclude SARS-C [...] ORDER CODE 3509. SOURCE (test code = 50887) NOT SPECIFIED Note: Methodology is [employer] Real-Time RT-PC R. The expected result or refer ence range is NEGATIVE (Not D etected). For more information reg arding COVID-19 testing to incl ude clinicalinforma tion, methodology detail, intende d use, FDA authorization a ndrecommended fact sheets for saul ents or healthcare providers, see NewTest Announcement: S ARS-CoV-2 (COVID-19) by N AAT at URL below (note,fact shee ts are provided by method given in report:https:// www.[employer]/cl inicians/client -communications/ Alternatively, see downloadable PDF fact sheet at:https://www. [employer]/COVID- 19-RT-PCR UNLES S OTHERWISE INDICATED, ALL TESTING PERFORMED [facility] [place]. [address] [place] [address] 4 ONLINE PROJECT MANAGER: LETTY MILLER M.D. CLIA NUMBER [id number] CAP ACCREDITATION N O. [id number] SARS-CoV-2 (COVID-19) by RT-PCR (HIGH RISK)2021-12-10 00:00:00 Test Item Value Reference Range Interpretation Comments SARS-CoV-2 INTERPRETATION (test NEGATIVE code = 87041) SOURCE (test code = 14285) NOT SPECIFIED SARS-CoV-2 (COVID-19) by RT-PCR (HIGH RISK)2021-12-10 00:00:00 Test Item Value Reference Range Interpretation Comments SARS-CoV-2 INTERPRETATION (test NEGATIVE code = 56600) SOURCE (test code = 22945) NOT SPECIFIED SARS-CoV-2 (COVID-19) by RT-PCR (HIGH RISK)2021-12-10 00:00:00 Test Item Value Reference Range Interpretation Comments SARS-CoV-2 INTERPRETATION (test NEGATIVE code = 80866) SOURCE (test code = 86246) NOT SPECIFIED SARS-CoV-2 (COVID-19) by RT-PCR (HIGH RISK)2021-12-10 00:00:00 Test Item Value Reference Range Interpretation Comments SARS-CoV-2 INTERPRETATION (test NEGATIVE code = 89894) SOURCE (test code = 36015) NOT SPECIFIED SARS-CoV-2 (COVID-19) by RT-PCR (HIGH RISK)2021-12-10 00:00:00 Test Item Value Reference Range Interpretation Comments SARS-CoV-2 INTERPRETATION (test NEGATIVE code = 93358) SOURCE (test code = 54274) NOT SPECIFIED SARS-CoV-2 (COVID-19) by RT-PCR (HIGH RISK)2021-12-10 00:00:00 Test Item Value Reference Range Interpretation Comments SARS-CoV-2 INTERPRETATION (test NEGATIVE code = 47638) SOURCE (test code = 73485) NOT SPECIFIED SARS-CoV-2 (COVID-19) by RT-PCR (HIGH RISK)2021-12-10 00:00:00 Test Item Value Reference Range Interpretation Comments SARS-CoV-2 INTERPRETATION (test NEGATIVE code = 18998) SOURCE (test code = 78123) NOT SPECIFIED SARS-CoV-2 (COVID-19) by RT-PCR (HIGH RISK)2021-12-10 00:00:00 Test Item Value Reference Range Interpretation Comments SARS-CoV-2 INTERPRETATION (test NEGATIVE code = 09116) SOURCE (test code = 75227) NOT SPECIFIED SARS-CoV-2 (COVID-19) by RT-PCR (HIGH RISK)2021-12-10 00:00:00 Test Item Value Reference Range Interpretation Comments SARS-CoV-2 INTERPRETATION (test NEGATIVE code = 77933) SOURCE (test code = 24946) NOT SPECIFIED SARS-CoV-2 (COVID-19) by RT-PCR (HIGH RISK)2021-12-10 00:00:00 Test Item Value Reference Range Interpretation Comments SARS-CoV-2 INTERPRETATION (test NEGATIVE code = 47039) SOURCE (test code = 20601) NOT SPECIFIED SARS-CoV-2 (COVID-19) by RT-PCR (HIGH RISK)2021-12-10 00:00:00 Test Item Value Reference Range Interpretation Comments SARS-CoV-2 INTERPRETATION (test NEGATIVE code = 20043) SOURCE (test code = 95458) NOT SPECIFIED TSH + FREE T4 [id number] 04:46:08 Test Item Value Reference Range Interpretation Comments TSH, THIRD 3.090 UIU/ML 0.400-4.100 GENERATION (test code = 2821) FREE T4 (THYROXINE) 0.88 NG/DL 0.80-1.90 UNLESS OTHERWISE (test code = 2823) INDICATED , ALL TESTING PERFORMED [facility] [address] [address] [facility] DIRECTOR: LETTY MILLER M.D. CLIA NUMBER [id number] CAP ACCREDITATION N O. [id number] TSH + FREE T4 [id number] 00:00:00 Test Item Value Reference Range Interpretation Comments TSH, THIRD GENERATION (test code 3.090 UIU/ML = 2821) FREE T4 (THYROXINE) (test code = 0.88 NG/DL 2823) TSH + FREE T4 [id number] 00:00:00 Test Item Value Reference Range Interpretation Comments TSH, THIRD GENERATION (test code 3.090 UIU/ML = 2821) FREE T4 (THYROXINE) (test code = 0.88 NG/DL 2823) TSH + FREE T4 [id number] 00:00:00 Test Item Value Reference Range Interpretation Comments TSH, THIRD GENERATION (test code 3.090 UIU/ML = 2821) FREE T4 (THYROXINE) (test code = 0.88 NG/DL 2823) TSH + FREE T4 [id number] 00:00:00 Test Item Value Reference Range Interpretation Comments TSH, THIRD GENERATION (test code 3.090 UIU/ML = 2821) FREE T4 (THYROXINE) (test code = 0.88 NG/DL 2823) TSH + FREE T4 [id number] 00:00:00 Test Item Value Reference Range Interpretation Comments TSH, THIRD GENERATION (test code 3.090 UIU/ML = 2821) FREE T4 (THYROXINE) (test code = 0.88 NG/DL 2823) TSH + FREE T4 [id number] 00:00:00 Test Item Value Reference Range Interpretation Comments TSH, THIRD GENERATION (test code 3.090 UIU/ML = 2821) FREE T4 (THYROXINE) (test code = 0.88 NG/DL 2823) TSH + FREE T4 [id number] 00:00:00 Test Item Value Reference Range Interpretation Comments TSH, THIRD GENERATION (test code 3.090 UIU/ML = 2821) FREE T4 (THYROXINE) (test code = 0.88 NG/DL 2823) TSH + FREE T4 [id number] 00:00:00 Test Item Value Reference Range Interpretation Comments TSH, THIRD GENERATION (test code 3.090 UIU/ML = 2821) FREE T4 (THYROXINE) (test code = 0.88 NG/DL 2823) TSH + FREE T4 [id number] 00:00:00 Test Item Value Reference Range Interpretation Comments TSH, THIRD GENERATION (test code 3.090 UIU/ML = 2821) FREE T4 (THYROXINE) (test code = 0.88 NG/DL 2823) TSH + FREE T4 [id number] 00:00:00 Test Item Value Reference Range Interpretation Comments TSH, THIRD GENERATION (test code 3.090 UIU/ML = 2821) FREE T4 (THYROXINE) (test code = 0.88 NG/DL 2823) TSH + FREE T4 [id number] 00:00:00 Test Item Value Reference Range Interpretation Comments TSH, THIRD GENERATION (test code 3.090 UIU/ML = 2821) FREE T4 (THYROXINE) (test code = 0.88 NG/DL 2823) TSH + FREE T4 [id number] 00:00:00 Test Item Value Reference Range Interpretation Comments TSH, THIRD GENERATION (test code 3.090 UIU/ML = 2821) FREE T4 (THYROXINE) (test code = 0.88 NG/DL 2823) TSH + FREE T4 [id number] 00:00:00 Test Item Value Reference Range Interpretation Comments TSH, THIRD GENERATION (test code 3.090 UIU/ML = 2821) FREE T4 (THYROXINE) (test code = 0.88 NG/DL 2823) TSH + FREE T4 [id number] 00:00:00 Test Item Value Reference Range Interpretation Comments TSH, THIRD GENERATION (test code 3.090 UIU/ML = 2821) FREE T4 (THYROXINE) (test code = 0.88 NG/DL 2823) TSH + FREE T4 [id number] 00:00:00 Test Item Value Reference Range Interpretation Comments TSH, THIRD GENERATION (test code 3.090 UIU/ML = 2821) FREE T4 (THYROXINE) (test code = 0.88 NG/DL 2823) TSH + FREE T4 [id number] 00:00:00 Test Item Value Reference Range Interpretation Comments TSH, THIRD GENERATION (test code 3.090 UIU/ML = 2821) FREE T4 (THYROXINE) (test code = 0.88 NG/DL 2823) TSH + FREE T4 [id number] 00:00:00 Test Item Value Reference Range Interpretation Comments TSH, THIRD GENERATION (test code 3.090 UIU/ML = 2821) FREE T4 (THYROXINE) (test code = 0.88 NG/DL 2823) CBC W/AUTO [id number] 00:00:00 Test Item Value Reference Range Interpretation Comments WBC (test code = 1001) 7.2 K/UL RBC (test code = 1002) 5.06 M/UL HEMOGLOBIN (test code = 1003) 15.3 G/DL HEMATOCRIT (test code = 1004) 44.9 % MCV (test code = 1005) 88.7 fL MCH (test code = 1006) 30.2 PG MCHC (test code = 1007) 34.1 G/DL RDW (test code = 1038) 16.0 % NEUTROPHILS (test code = 1008) 79.4 % LYMPHOCYTES (test code = 1010) 12.2 % MONOCYTES (test code = 1011) 6.9 % EOSINOPHILS (test code = 1012) 0.4 % BASOPHILS (test code = 1013) 0.4 % IMMATURE GRANULOCYTES (test 0.7 % code = 1036) NUCLEATED RBCS (test code = 0.0 /100WBC'S 1065) PLATELET COUNT (test code = 125 K/UL 1015) ABSOLUTE NEUTROPHILS (test code 5.72 K/UL = 1066) ABSOLUTE LYMPHOCYTES (test code 0.88 K/UL = 1067) ABSOLUTE MONOCYTES (test code = 0.50 K/UL 1068) ABSOLUTE EOSINOPHILS (test code 0.03 K/UL = 1040) ABSOLUTE BASOPHILS (test code = 0.03 K/UL 1069) ABS IMMATURE GRANULOCYTES (test 0.05 K/UL code = 1020) ABS NUCLEATED RBCS (test code = 0.00 K/UL 81027) CBC W/AUTO [id number] 00:00:00 Test Item Value Reference Range Interpretation Comments WBC (test code = 1001) 7.2 K/UL RBC (test code = 1002) 5.06 M/UL HEMOGLOBIN (test code = 1003) 15.3 G/DL HEMATOCRIT (test code = 1004) 44.9 % MCV (test code = 1005) 88.7 fL MCH (test code = 1006) 30.2 PG MCHC (test code = 1007) 34.1 G/DL RDW (test code = 1038) 16.0 % NEUTROPHILS (test code = 1008) 79.4 % LYMPHOCYTES (test code = 1010) 12.2 % MONOCYTES (test code = 1011) 6.9 % EOSINOPHILS (test code = 1012) 0.4 % BASOPHILS (test code = 1013) 0.4 % IMMATURE GRANULOCYTES (test 0.7 % code = 1036) NUCLEATED RBCS (test code = 0.0 /100WBC'S 1065) PLATELET COUNT (test code = 125 K/UL 1015) ABSOLUTE NEUTROPHILS (test code 5.72 K/UL = 1066) ABSOLUTE LYMPHOCYTES (test code 0.88 K/UL = 1067) ABSOLUTE MONOCYTES (test code = 0.50 K/UL 1068) ABSOLUTE EOSINOPHILS (test code 0.03 K/UL = 1040) ABSOLUTE BASOPHILS (test code = 0.03 K/UL 1069) ABS IMMATURE GRANULOCYTES (test 0.05 K/UL code = 1020) ABS NUCLEATED RBCS (test code = 0.00 K/UL 40936) COMPREHENSIVE METABOLIC [id number] 00:00:00 Test Item Value Reference Range Interpretation Comments GLUCOSE (test code = 2217) 128 MG/DL BUN (test code = 2208) 15 MG/DL CREATININE (test code = 2214) 0.64 MG/DL eGFR AMER. (test code 131 ML/MIN/1.73 = 45860) eGFR NON- AMER. (test 113 ML/MIN/1.73 code = 52235) CALC BUN/CREAT (test code = 23 RATIO 2235) SODIUM (test code = 2231) 140 MEQ/L POTASSIUM (test code = 2228) 4.2 MEQ/L CHLORIDE (test code = 2215) 105 MEQ/L CARBON DIOXIDE (test code = 22 MEQ/L 220) CALCIUM (test code = 2209) 8.8 MG/DL PROTEIN, TOTAL (test code = 5.9 G/DL 2228) ALBUMIN (test code = 2201) 3.8 G/DL CALC GLOBULIN (test code = 2.1 G/DL 224) CALC A/G RATIO (test code = 1.8 RATIO 2233) BILIRUBIN, TOTAL (test code = 0.6 MG/DL 2206) ALKALINE PHOSPHATASE (test 68 U/L code = 2204) AST (test code = 2218) 21 U/L ALT (test code = 2219) 37 U/L CBC W/AUTO [id number] 00:00:00 Test Item Value Reference Range Interpretation Comments WBC (test code = 1001) 7.2 K/UL RBC (test code = 1002) 5.06 M/UL HEMOGLOBIN (test code = 1003) 15.3 G/DL HEMATOCRIT (test code = 1004) 44.9 % MCV (test code = 1005) 88.7 fL MCH (test code = 1006) 30.2 PG MCHC (test code = 1007) 34.1 G/DL RDW (test code = 1038) 16.0 % NEUTROPHILS (test code = 1008) 79.4 % LYMPHOCYTES (test code = 1010) 12.2 % MONOCYTES (test code = 1011) 6.9 % EOSINOPHILS (test code = 1012) 0.4 % BASOPHILS (test code = 1013) 0.4 % IMMATURE GRANULOCYTES (test 0.7 % code = 1036) NUCLEATED RBCS (test code = 0.0 /100WBC'S 1065) PLATELET COUNT (test code = 125 K/UL 1015) ABSOLUTE NEUTROPHILS (test code 5.72 K/UL = 1066) ABSOLUTE LYMPHOCYTES (test code 0.88 K/UL = 1067) ABSOLUTE MONOCYTES (test code = 0.50 K/UL 1068) ABSOLUTE EOSINOPHILS (test code 0.03 K/UL = 1040) ABSOLUTE BASOPHILS (test code = 0.03 K/UL 1069) ABS IMMATURE GRANULOCYTES (test 0.05 K/UL code = 1020) ABS NUCLEATED RBCS (test code = 0.00 K/UL 54295) HEMOGLOBIN [id number] 00:00:00 Test Item Value Reference Range Interpretation Comments HEMOGLOBIN A1c (test code = 36245) 8.4 % HEMOGLOBIN [id number] 00:00:00 Test Item Value Reference Range Interpretation Comments HEMOGLOBIN A1c (test code = 62902) 8.4 % HEMOGLOBIN [id number] 00:00:00 Test Item Value Reference Range Interpretation Comments HEMOGLOBIN A1c (test code = 41405) 8.4 % COMPREHENSIVE METABOLIC [id number] 00:00:00 Test Item Value Reference Range Interpretation Comments GLUCOSE (test code = 2217) 128 MG/DL BUN (test code = 2208) 15 MG/DL CREATININE (test code = 2214) 0.64 MG/DL eGFR AMER. (test code 131 ML/MIN/1.73 = 48117) eGFR NON- AMER. (test 113 ML/MIN/1.73 code = 51936) CALC BUN/CREAT (test code = 23 RATIO 2235) SODIUM (test code = 2231) 140 MEQ/L POTASSIUM (test code = 2228) 4.2 MEQ/L CHLORIDE (test code = 2215) 105 MEQ/L CARBON DIOXIDE (test code = 22 MEQ/L 6) CALCIUM (test code = 2209) 8.8 MG/DL PROTEIN, TOTAL (test code = 5.9 G/DL 2228) ALBUMIN (test code = 2201) 3.8 G/DL CALC GLOBULIN (test code = 2.1 G/DL 0) CALC A/G RATIO (test code = 1.8 RATIO 2234) BILIRUBIN, TOTAL (test code = 0.6 MG/DL 2206) ALKALINE PHOSPHATASE (test 68 U/L code = 2204) AST (test code = 2218) 21 U/L ALT (test code = 2219) 37 U/L COMPREHENSIVE METABOLIC [id number] 00:00:00 Test Item Value Reference Range Interpretation Comments GLUCOSE (test code = 2217) 128 MG/DL BUN (test code = 2208) 15 MG/DL CREATININE (test code = 2214) 0.64 MG/DL eGFR AMER. (test code 131 ML/MIN/1.73 = 44014) eGFR NON- AMER. (test 113 ML/MIN/1.73 code = 25132) CALC BUN/CREAT (test code = 23 RATIO 2235) SODIUM (test code = 2231) 140 MEQ/L POTASSIUM (test code = 2228) 4.2 MEQ/L CHLORIDE (test code = 2215) 105 MEQ/L CARBON DIOXIDE (test code = 22 MEQ/L 220) CALCIUM (test code = 2209) 8.8 MG/DL PROTEIN, TOTAL (test code = 5.9 G/DL 2228) ALBUMIN (test code = 2201) 3.8 G/DL CALC GLOBULIN (test code = 2.1 G/DL 224) CALC A/G RATIO (test code = 1.8 RATIO 4) BILIRUBIN, TOTAL (test code = 0.6 MG/DL 2206) ALKALINE PHOSPHATASE (test 68 U/L code = 2204) AST (test code = 2218) 21 U/L ALT (test code = 2219) 37 U/L CBC W/AUTO [id number] 00:00:00 Test Item Value Reference Range Interpretation Comments WBC (test code = 1001) 7.2 K/UL RBC (test code = 1002) 5.06 M/UL HEMOGLOBIN (test code = 1003) 15.3 G/DL HEMATOCRIT (test code = 1004) 44.9 % MCV (test code = 1005) 88.7 fL MCH (test code = 1006) 30.2 PG MCHC (test code = 1007) 34.1 G/DL RDW (test code = 1038) 16.0 % NEUTROPHILS (test code = 1008) 79.4 % LYMPHOCYTES (test code = 1010) 12.2 % MONOCYTES (test code = 1011) 6.9 % EOSINOPHILS (test code = 1012) 0.4 % BASOPHILS (test code = 1013) 0.4 % IMMATURE GRANULOCYTES (test 0.7 % code = 1036) NUCLEATED RBCS (test code = 0.0 /100WBC'S 1065) PLATELET COUNT (test code = 125 K/UL 1015) ABSOLUTE NEUTROPHILS (test code 5.72 K/UL = 1066) ABSOLUTE LYMPHOCYTES (test code 0.88 K/UL = 1067) ABSOLUTE MONOCYTES (test code = 0.50 K/UL 1068) ABSOLUTE EOSINOPHILS (test code 0.03 K/UL = 1040) ABSOLUTE BASOPHILS (test code = 0.03 K/UL 1069) ABS IMMATURE GRANULOCYTES (test 0.05 K/UL code = 1020) ABS NUCLEATED RBCS (test code = 0.00 K/UL 89999) CBC W/AUTO [id number] 00:00:00 Test Item Value Reference Range Interpretation Comments WBC (test code = 1001) 7.2 K/UL RBC (test code = 1002) 5.06 M/UL HEMOGLOBIN (test code = 1003) 15.3 G/DL HEMATOCRIT (test code = 1004) 44.9 % MCV (test code = 1005) 88.7 fL MCH (test code = 1006) 30.2 PG MCHC (test code = 1007) 34.1 G/DL RDW (test code = 1038) 16.0 % NEUTROPHILS (test code = 1008) 79.4 % LYMPHOCYTES (test code = 1010) 12.2 % MONOCYTES (test code = 1011) 6.9 % EOSINOPHILS (test code = 1012) 0.4 % BASOPHILS (test code = 1013) 0.4 % IMMATURE GRANULOCYTES (test 0.7 % code = 1036) NUCLEATED RBCS (test code = 0.0 /100WBC'S 1065) PLATELET COUNT (test code = 125 K/UL 1015) ABSOLUTE NEUTROPHILS (test code 5.72 K/UL = 1066) ABSOLUTE LYMPHOCYTES (test code 0.88 K/UL = 1067) ABSOLUTE MONOCYTES (test code = 0.50 K/UL 1068) ABSOLUTE EOSINOPHILS (test code 0.03 K/UL = 1040) ABSOLUTE BASOPHILS (test code = 0.03 K/UL 1069) ABS IMMATURE GRANULOCYTES (test 0.05 K/UL code = 1020) ABS NUCLEATED RBCS (test code = 0.00 K/UL 85494) CBC W/AUTO [id number] 00:00:00 Test Item Value Reference Range Interpretation Comments WBC (test code = 1001) 7.2 K/UL RBC (test code = 1002) 5.06 M/UL HEMOGLOBIN (test code = 1003) 15.3 G/DL HEMATOCRIT (test code = 1004) 44.9 % MCV (test code = 1005) 88.7 fL MCH (test code = 1006) 30.2 PG MCHC (test code = 1007) 34.1 G/DL RDW (test code = 1038) 16.0 % NEUTROPHILS (test code = 1008) 79.4 % LYMPHOCYTES (test code = 1010) 12.2 % MONOCYTES (test code = 1011) 6.9 % EOSINOPHILS (test code = 1012) 0.4 % BASOPHILS (test code = 1013) 0.4 % IMMATURE GRANULOCYTES (test 0.7 % code = 1036) NUCLEATED RBCS (test code = 0.0 /100WBC'S 1065) PLATELET COUNT (test code = 125 K/UL 1015) ABSOLUTE NEUTROPHILS (test code 5.72 K/UL = 1066) ABSOLUTE LYMPHOCYTES (test code 0.88 K/UL = 1067) ABSOLUTE MONOCYTES (test code = 0.50 K/UL 1068) ABSOLUTE EOSINOPHILS (test code 0.03 K/UL = 1040) ABSOLUTE BASOPHILS (test code = 0.03 K/UL 1069) ABS IMMATURE GRANULOCYTES (test 0.05 K/UL code = 1020) ABS NUCLEATED RBCS (test code = 0.00 K/UL 88894) HEMOGLOBIN [id number] 00:00:00 Test Item Value Reference Range Interpretation Comments HEMOGLOBIN A1c (test code = 38660) 8.4 % HEMOGLOBIN [id number] 00:00:00 Test Item Value Reference Range Interpretation Comments HEMOGLOBIN A1c (test code = 91130) 8.4 % HEMOGLOBIN [id number] 00:00:00 Test Item Value Reference Range Interpretation Comments HEMOGLOBIN A1c (test code = 50472) 8.4 % COMPREHENSIVE METABOLIC [id number] 00:00:00 Test Item Value Reference Range Interpretation Comments GLUCOSE (test code = 2217) 128 MG/DL BUN (test code = 2208) 15 MG/DL CREATININE (test code = 2214) 0.64 MG/DL eGFR AMER. (test code 131 ML/MIN/1.73 = 91088) eGFR NON- AMER. (test 113 ML/MIN/1.73 code = 03826) CALC BUN/CREAT (test code = 23 RATIO 2235) SODIUM (test code = 2231) 140 MEQ/L POTASSIUM (test code = 2228) 4.2 MEQ/L CHLORIDE (test code = 2215) 105 MEQ/L CARBON DIOXIDE (test code = 22 MEQ/L 2205) CALCIUM (test code = 2209) 8.8 MG/DL PROTEIN, TOTAL (test code = 5.9 G/DL 2228) ALBUMIN (test code = 2201) 3.8 G/DL CALC GLOBULIN (test code = 2.1 G/DL 2240) CALC A/G RATIO (test code = 1.8 RATIO 2234) BILIRUBIN, TOTAL (test code = 0.6 MG/DL 220) ALKALINE PHOSPHATASE (test 68 U/L code = 2204) AST (test code = 2218) 21 U/L ALT (test code = 2219) 37 U/L COMPREHENSIVE METABOLIC [id number] 00:00:00 Test Item Value Reference Range Interpretation Comments GLUCOSE (test code = 2217) 128 MG/DL BUN (test code = 2208) 15 MG/DL CREATININE (test code = 2214) 0.64 MG/DL eGFR AMER. (test code 131 ML/MIN/1.73 = 31289) eGFR NON- AMER. (test 113 ML/MIN/1.73 code = 84952) CALC BUN/CREAT (test code = 23 RATIO 2235) SODIUM (test code = 2231) 140 MEQ/L POTASSIUM (test code = 2228) 4.2 MEQ/L CHLORIDE (test code = 2215) 105 MEQ/L CARBON DIOXIDE (test code = 22 MEQ/L 2205) CALCIUM (test code = 2209) 8.8 MG/DL PROTEIN, TOTAL (test code = 5.9 G/DL 2228) ALBUMIN (test code = 2201) 3.8 G/DL CALC GLOBULIN (test code = 2.1 G/DL 2240) CALC A/G RATIO (test code = 1.8 RATIO 2234) BILIRUBIN, TOTAL (test code = 0.6 MG/DL 7) ALKALINE PHOSPHATASE (test 68 U/L code = 2204) AST (test code = 2218) 21 U/L ALT (test code = 2219) 37 U/L CBC W/AUTO [id number] 00:00:00 Test Item Value Reference Range Interpretation Comments WBC (test code = 1001) 7.2 K/UL RBC (test code = 1002) 5.06 M/UL HEMOGLOBIN (test code = 1003) 15.3 G/DL HEMATOCRIT (test code = 1004) 44.9 % MCV (test code = 1005) 88.7 fL MCH (test code = 1006) 30.2 PG MCHC (test code = 1007) 34.1 G/DL RDW (test code = 1038) 16.0 % NEUTROPHILS (test code = 1008) 79.4 % LYMPHOCYTES (test code = 1010) 12.2 % MONOCYTES (test code = 1011) 6.9 % EOSINOPHILS (test code = 1012) 0.4 % BASOPHILS (test code = 1013) 0.4 % IMMATURE GRANULOCYTES (test 0.7 % code = 1036) NUCLEATED RBCS (test code = 0.0 /100WBC'S 1065) PLATELET COUNT (test code = 125 K/UL 1015) ABSOLUTE NEUTROPHILS (test code 5.72 K/UL = 1066) ABSOLUTE LYMPHOCYTES (test code 0.88 K/UL = 1067) ABSOLUTE MONOCYTES (test code = 0.50 K/UL 1068) ABSOLUTE EOSINOPHILS (test code 0.03 K/UL = 1040) ABSOLUTE BASOPHILS (test code = 0.03 K/UL 1069) ABS IMMATURE GRANULOCYTES (test 0.05 K/UL code = 1020) ABS NUCLEATED RBCS (test code = 0.00 K/UL 29000) CBC W/AUTO [id number] 00:00:00 Test Item Value Reference Range Interpretation Comments WBC (test code = 1001) 7.2 K/UL RBC (test code = 1002) 5.06 M/UL HEMOGLOBIN (test code = 1003) 15.3 G/DL HEMATOCRIT (test code = 1004) 44.9 % MCV (test code = 1005) 88.7 fL MCH (test code = 1006) 30.2 PG MCHC (test code = 1007) 34.1 G/DL RDW (test code = 1038) 16.0 % NEUTROPHILS (test code = 1008) 79.4 % LYMPHOCYTES (test code = 1010) 12.2 % MONOCYTES (test code = 1011) 6.9 % EOSINOPHILS (test code = 1012) 0.4 % BASOPHILS (test code = 1013) 0.4 % IMMATURE GRANULOCYTES (test 0.7 % code = 1036) NUCLEATED RBCS (test code = 0.0 /100WBC'S 1065) PLATELET COUNT (test code = 125 K/UL 1015) ABSOLUTE NEUTROPHILS (test code 5.72 K/UL = 1066) ABSOLUTE LYMPHOCYTES (test code 0.88 K/UL = 1067) ABSOLUTE MONOCYTES (test code = 0.50 K/UL 1068) ABSOLUTE EOSINOPHILS (test code 0.03 K/UL = 1040) ABSOLUTE BASOPHILS (test code = 0.03 K/UL 1069) ABS IMMATURE GRANULOCYTES (test 0.05 K/UL code = 1020) ABS NUCLEATED RBCS (test code = 0.00 K/UL 39062) CBC W/AUTO [id number] 00:00:00 Test Item Value Reference Range Interpretation Comments WBC (test code = 1001) 7.2 K/UL RBC (test code = 1002) 5.06 M/UL HEMOGLOBIN (test code = 1003) 15.3 G/DL HEMATOCRIT (test code = 1004) 44.9 % MCV (test code = 1005) 88.7 fL MCH (test code = 1006) 30.2 PG MCHC (test code = 1007) 34.1 G/DL RDW (test code = 1038) 16.0 % NEUTROPHILS (test code = 1008) 79.4 % LYMPHOCYTES (test code = 1010) 12.2 % MONOCYTES (test code = 1011) 6.9 % EOSINOPHILS (test code = 1012) 0.4 % BASOPHILS (test code = 1013) 0.4 % IMMATURE GRANULOCYTES (test 0.7 % code = 1036) NUCLEATED RBCS (test code = 0.0 /100WBC'S 1065) PLATELET COUNT (test code = 125 K/UL 1015) ABSOLUTE NEUTROPHILS (test code 5.72 K/UL = 1066) ABSOLUTE LYMPHOCYTES (test code 0.88 K/UL = 1067) ABSOLUTE MONOCYTES (test code = 0.50 K/UL 1068) ABSOLUTE EOSINOPHILS (test code 0.03 K/UL = 1040) ABSOLUTE BASOPHILS (test code = 0.03 K/UL 1069) ABS IMMATURE GRANULOCYTES (test 0.05 K/UL code = 1020) ABS NUCLEATED RBCS (test code = 0.00 K/UL 80611) HEMOGLOBIN [id number] 00:00:00 Test Item Value Reference Range Interpretation Comments HEMOGLOBIN A1c (test code = 99911) 8.4 % HEMOGLOBIN [id number] 00:00:00 Test Item Value Reference Range Interpretation Comments HEMOGLOBIN A1c (test code = 58425) 8.4 % HEMOGLOBIN [id number] 00:00:00 Test Item Value Reference Range Interpretation Comments HEMOGLOBIN A1c (test code = 44634) 8.4 % COMPREHENSIVE METABOLIC [id number] 00:00:00 Test Item Value Reference Range Interpretation Comments GLUCOSE (test code = 2217) 128 MG/DL BUN (test code = 2208) 15 MG/DL CREATININE (test code = 2214) 0.64 MG/DL eGFR AMER. (test code 131 ML/MIN/1.73 = 77900) eGFR NON- AMER. (test 113 ML/MIN/1.73 code = 94055) CALC BUN/CREAT (test code = 23 RATIO 2235) SODIUM (test code = 2231) 140 MEQ/L POTASSIUM (test code = 2228) 4.2 MEQ/L CHLORIDE (test code = 2215) 105 MEQ/L CARBON DIOXIDE (test code = 22 MEQ/L 2206) CALCIUM (test code = 2209) 8.8 MG/DL PROTEIN, TOTAL (test code = 5.9 G/DL 2228) ALBUMIN (test code = 2201) 3.8 G/DL CALC GLOBULIN (test code = 2.1 G/DL 0) CALC A/G RATIO (test code = 1.8 RATIO 4) BILIRUBIN, TOTAL (test code = 0.6 MG/DL 2206) ALKALINE PHOSPHATASE (test 68 U/L code = 2204) AST (test code = 2218) 21 U/L ALT (test code = 2219) 37 U/L COMPREHENSIVE METABOLIC [id number] 00:00:00 Test Item Value Reference Range Interpretation Comments GLUCOSE (test code = 2217) 128 MG/DL BUN (test code = 2208) 15 MG/DL CREATININE (test code = 2214) 0.64 MG/DL eGFR AMER. (test code 131 ML/MIN/1.73 = 81013) eGFR NON- AMER. (test 113 ML/MIN/1.73 code = 30250) CALC BUN/CREAT (test code = 23 RATIO 2235) SODIUM (test code = 2231) 140 MEQ/L POTASSIUM (test code = 2228) 4.2 MEQ/L CHLORIDE (test code = 2215) 105 MEQ/L CARBON DIOXIDE (test code = 22 MEQ/L 2206) CALCIUM (test code = 2209) 8.8 MG/DL PROTEIN, TOTAL (test code = 5.9 G/DL 2229) ALBUMIN (test code = 2201) 3.8 G/DL CALC GLOBULIN (test code = 2.1 G/DL 2240) CALC A/G RATIO (test code = 1.8 RATIO 2234) BILIRUBIN, TOTAL (test code = 0.6 MG/DL 2207) ALKALINE PHOSPHATASE (test 68 U/L code = 2204) AST (test code = 2218) 21 U/L ALT (test code = 2219) 37 U/L CBC W/AUTO [id number] 00:00:00 Test Item Value Reference Range Interpretation Comments WBC (test code = 1001) 7.2 K/UL RBC (test code = 1002) 5.06 M/UL HEMOGLOBIN (test code = 1003) 15.3 G/DL HEMATOCRIT (test code = 1004) 44.9 % MCV (test code = 1005) 88.7 fL MCH (test code = 1006) 30.2 PG MCHC (test code = 1007) 34.1 G/DL RDW (test code = 1038) 16.0 % NEUTROPHILS (test code = 1008) 79.4 % LYMPHOCYTES (test code = 1010) 12.2 % MONOCYTES (test code = 1011) 6.9 % EOSINOPHILS (test code = 1012) 0.4 % BASOPHILS (test code = 1013) 0.4 % IMMATURE GRANULOCYTES (test 0.7 % code = 1036) NUCLEATED RBCS (test code = 0.0 /100WBC'S 1065) PLATELET COUNT (test code = 125 K/UL 1015) ABSOLUTE NEUTROPHILS (test code 5.72 K/UL = 1066) ABSOLUTE LYMPHOCYTES (test code 0.88 K/UL = 1067) ABSOLUTE MONOCYTES (test code = 0.50 K/UL 1068) ABSOLUTE EOSINOPHILS (test code 0.03 K/UL = 1040) ABSOLUTE BASOPHILS (test code = 0.03 K/UL 1069) ABS IMMATURE GRANULOCYTES (test 0.05 K/UL code = 1020) ABS NUCLEATED RBCS (test code = 0.00 K/UL 36378) CBC W/AUTO [id number] 00:00:00 Test Item Value Reference Range Interpretation Comments WBC (test code = 1001) 7.2 K/UL RBC (test code = 1002) 5.06 M/UL HEMOGLOBIN (test code = 1003) 15.3 G/DL HEMATOCRIT (test code = 1004) 44.9 % MCV (test code = 1005) 88.7 fL MCH (test code = 1006) 30.2 PG MCHC (test code = 1007) 34.1 G/DL RDW (test code = 1038) 16.0 % NEUTROPHILS (test code = 1008) 79.4 % LYMPHOCYTES (test code = 1010) 12.2 % MONOCYTES (test code = 1011) 6.9 % EOSINOPHILS (test code = 1012) 0.4 % BASOPHILS (test code = 1013) 0.4 % IMMATURE GRANULOCYTES (test 0.7 % code = 1036) NUCLEATED RBCS (test code = 0.0 /100WBC'S 1065) PLATELET COUNT (test code = 125 K/UL 1015) ABSOLUTE NEUTROPHILS (test code 5.72 K/UL = 1066) ABSOLUTE LYMPHOCYTES (test code 0.88 K/UL = 1067) ABSOLUTE MONOCYTES (test code = 0.50 K/UL 1068) ABSOLUTE EOSINOPHILS (test code 0.03 K/UL = 1040) ABSOLUTE BASOPHILS (test code = 0.03 K/UL 1069) ABS IMMATURE GRANULOCYTES (test 0.05 K/UL code = 1020) ABS NUCLEATED RBCS (test code = 0.00 K/UL 96718) CBC W/AUTO [id number] 00:00:00 Test Item Value Reference Range Interpretation Comments WBC (test code = 1001) 7.2 K/UL RBC (test code = 1002) 5.06 M/UL HEMOGLOBIN (test code = 1003) 15.3 G/DL HEMATOCRIT (test code = 1004) 44.9 % MCV (test code = 1005) 88.7 fL MCH (test code = 1006) 30.2 PG MCHC (test code = 1007) 34.1 G/DL RDW (test code = 1038) 16.0 % NEUTROPHILS (test code = 1008) 79.4 % LYMPHOCYTES (test code = 1010) 12.2 % MONOCYTES (test code = 1011) 6.9 % EOSINOPHILS (test code = 1012) 0.4 % BASOPHILS (test code = 1013) 0.4 % IMMATURE GRANULOCYTES (test 0.7 % code = 1036) NUCLEATED RBCS (test code = 0.0 /100WBC'S 1065) PLATELET COUNT (test code = 125 K/UL 1015) ABSOLUTE NEUTROPHILS (test code 5.72 K/UL = 1066) ABSOLUTE LYMPHOCYTES (test code 0.88 K/UL = 1067) ABSOLUTE MONOCYTES (test code = 0.50 K/UL 1068) ABSOLUTE EOSINOPHILS (test code 0.03 K/UL = 1040) ABSOLUTE BASOPHILS (test code = 0.03 K/UL 1069) ABS IMMATURE GRANULOCYTES (test 0.05 K/UL code = 1020) ABS NUCLEATED RBCS (test code = 0.00 K/UL 72924) HEMOGLOBIN [id number] 00:00:00 Test Item Value Reference Range Interpretation Comments HEMOGLOBIN A1c (test code = 03037) 8.4 % HEMOGLOBIN [id number] 00:00:00 Test Item Value Reference Range Interpretation Comments HEMOGLOBIN A1c (test code = 95929) 8.4 % HEMOGLOBIN [id number] 00:00:00 Test Item Value Reference Range Interpretation Comments HEMOGLOBIN A1c (test code = 52687) 8.4 % COMPREHENSIVE METABOLIC [id number] 00:00:00 Test Item Value Reference Range Interpretation Comments GLUCOSE (test code = 2217) 128 MG/DL BUN (test code = 2208) 15 MG/DL CREATININE (test code = 2214) 0.64 MG/DL eGFR AMER. (test code 131 ML/MIN/1.73 = 94458) eGFR NON- AMER. (test 113 ML/MIN/1.73 code = 47972) CALC BUN/CREAT (test code = 23 RATIO 2235) SODIUM (test code = 2231) 140 MEQ/L POTASSIUM (test code = 2228) 4.2 MEQ/L CHLORIDE (test code = 2215) 105 MEQ/L CARBON DIOXIDE (test code = 22 MEQ/L 220) CALCIUM (test code = 2209) 8.8 MG/DL PROTEIN, TOTAL (test code = 5.9 G/DL 2228) ALBUMIN (test code = 2201) 3.8 G/DL CALC GLOBULIN (test code = 2.1 G/DL 0) CALC A/G RATIO (test code = 1.8 RATIO 2234) BILIRUBIN, TOTAL (test code = 0.6 MG/DL 2207) ALKALINE PHOSPHATASE (test 68 U/L code = 2204) AST (test code = 2218) 21 U/L ALT (test code = 2219) 37 U/L COMPREHENSIVE METABOLIC [id number] 00:00:00 Test Item Value Reference Range Interpretation Comments GLUCOSE (test code = 2217) 128 MG/DL BUN (test code = 2208) 15 MG/DL CREATININE (test code = 2214) 0.64 MG/DL eGFR AMER. (test code 131 ML/MIN/1.73 = 16226) eGFR NON- AMER. (test 113 ML/MIN/1.73 code = 98949) CALC BUN/CREAT (test code = 23 RATIO 2235) SODIUM (test code = 2231) 140 MEQ/L POTASSIUM (test code = 2228) 4.2 MEQ/L CHLORIDE (test code = 2215) 105 MEQ/L CARBON DIOXIDE (test code = 22 MEQ/L 2206) CALCIUM (test code = 2209) 8.8 MG/DL PROTEIN, TOTAL (test code = 5.9 G/DL 2228) ALBUMIN (test code = 2201) 3.8 G/DL CALC GLOBULIN (test code = 2.1 G/DL 2240) CALC A/G RATIO (test code = 1.8 RATIO 2234) BILIRUBIN, TOTAL (test code = 0.6 MG/DL 2206) ALKALINE PHOSPHATASE (test 68 U/L code = 2204) AST (test code = 2218) 21 U/L ALT (test code = 2219) 37 U/L CBC W/AUTO [id number] 00:00:00 Test Item Value Reference Range Interpretation Comments WBC (test code = 1001) 7.2 K/UL RBC (test code = 1002) 5.06 M/UL HEMOGLOBIN (test code = 1003) 15.3 G/DL HEMATOCRIT (test code = 1004) 44.9 % MCV (test code = 1005) 88.7 fL MCH (test code = 1006) 30.2 PG MCHC (test code = 1007) 34.1 G/DL RDW (test code = 1038) 16.0 % NEUTROPHILS (test code = 1008) 79.4 % LYMPHOCYTES (test code = 1010) 12.2 % MONOCYTES (test code = 1011) 6.9 % EOSINOPHILS (test code = 1012) 0.4 % BASOPHILS (test code = 1013) 0.4 % IMMATURE GRANULOCYTES (test 0.7 % code = 1036) NUCLEATED RBCS (test code = 0.0 /100WBC'S 1065) PLATELET COUNT (test code = 125 K/UL 1015) ABSOLUTE NEUTROPHILS (test code 5.72 K/UL = 1066) ABSOLUTE LYMPHOCYTES (test code 0.88 K/UL = 1067) ABSOLUTE MONOCYTES (test code = 0.50 K/UL 1068) ABSOLUTE EOSINOPHILS (test code 0.03 K/UL = 1040) ABSOLUTE BASOPHILS (test code = 0.03 K/UL 1069) ABS IMMATURE GRANULOCYTES (test 0.05 K/UL code = 1020) ABS NUCLEATED RBCS (test code = 0.00 K/UL 08729) CBC W/AUTO [id number] 00:00:00 Test Item Value Reference Range Interpretation Comments WBC (test code = 1001) 7.2 K/UL RBC (test code = 1002) 5.06 M/UL HEMOGLOBIN (test code = 1003) 15.3 G/DL HEMATOCRIT (test code = 1004) 44.9 % MCV (test code = 1005) 88.7 fL MCH (test code = 1006) 30.2 PG MCHC (test code = 1007) 34.1 G/DL RDW (test code = 1038) 16.0 % NEUTROPHILS (test code = 1008) 79.4 % LYMPHOCYTES (test code = 1010) 12.2 % MONOCYTES (test code = 1011) 6.9 % EOSINOPHILS (test code = 1012) 0.4 % BASOPHILS (test code = 1013) 0.4 % IMMATURE GRANULOCYTES (test 0.7 % code = 1036) NUCLEATED RBCS (test code = 0.0 /100WBC'S 1065) PLATELET COUNT (test code = 125 K/UL 1015) ABSOLUTE NEUTROPHILS (test code 5.72 K/UL = 1066) ABSOLUTE LYMPHOCYTES (test code 0.88 K/UL = 1067) ABSOLUTE MONOCYTES (test code = 0.50 K/UL 1068) ABSOLUTE EOSINOPHILS (test code 0.03 K/UL = 1040) ABSOLUTE BASOPHILS (test code = 0.03 K/UL 1069) ABS IMMATURE GRANULOCYTES (test 0.05 K/UL code = 1020) ABS NUCLEATED RBCS (test code = 0.00 K/UL 08579) CBC W/AUTO [id number] 00:00:00 Test Item Value Reference Range Interpretation Comments WBC (test code = 1001) 7.2 K/UL RBC (test code = 1002) 5.06 M/UL HEMOGLOBIN (test code = 1003) 15.3 G/DL HEMATOCRIT (test code = 1004) 44.9 % MCV (test code = 1005) 88.7 fL MCH (test code = 1006) 30.2 PG MCHC (test code = 1007) 34.1 G/DL RDW (test code = 1038) 16.0 % NEUTROPHILS (test code = 1008) 79.4 % LYMPHOCYTES (test code = 1010) 12.2 % MONOCYTES (test code = 1011) 6.9 % EOSINOPHILS (test code = 1012) 0.4 % BASOPHILS (test code = 1013) 0.4 % IMMATURE GRANULOCYTES (test 0.7 % code = 1036) NUCLEATED RBCS (test code = 0.0 /100WBC'S 1065) PLATELET COUNT (test code = 125 K/UL 1015) ABSOLUTE NEUTROPHILS (test code 5.72 K/UL = 1066) ABSOLUTE LYMPHOCYTES (test code 0.88 K/UL = 1067) ABSOLUTE MONOCYTES (test code = 0.50 K/UL 1068) ABSOLUTE EOSINOPHILS (test code 0.03 K/UL = 1040) ABSOLUTE BASOPHILS (test code = 0.03 K/UL 1069) ABS IMMATURE GRANULOCYTES (test 0.05 K/UL code = 1020) ABS NUCLEATED RBCS (test code = 0.00 K/UL 49760) CBC W/AUTO [id number] 00:00:00 Test Item Value Reference Range Interpretation Comments WBC (test code = 1001) 7.2 K/UL RBC (test code = 1002) 5.06 M/UL HEMOGLOBIN (test code = 1003) 15.3 G/DL HEMATOCRIT (test code = 1004) 44.9 % MCV (test code = 1005) 88.7 fL MCH (test code = 1006) 30.2 PG MCHC (test code = 1007) 34.1 G/DL RDW (test code = 1038) 16.0 % NEUTROPHILS (test code = 1008) 79.4 % LYMPHOCYTES (test code = 1010) 12.2 % MONOCYTES (test code = 1011) 6.9 % EOSINOPHILS (test code = 1012) 0.4 % BASOPHILS (test code = 1013) 0.4 % IMMATURE GRANULOCYTES (test 0.7 % code = 1036) NUCLEATED RBCS (test code = 0.0 /100WBC'S 1065) PLATELET COUNT (test code = 125 K/UL 1015) ABSOLUTE NEUTROPHILS (test code 5.72 K/UL = 1066) ABSOLUTE LYMPHOCYTES (test code 0.88 K/UL = 1067) ABSOLUTE MONOCYTES (test code = 0.50 K/UL 1068) ABSOLUTE EOSINOPHILS (test code 0.03 K/UL = 1040) ABSOLUTE BASOPHILS (test code = 0.03 K/UL 1069) ABS IMMATURE GRANULOCYTES (test 0.05 K/UL code = 1020) ABS NUCLEATED RBCS (test code = 0.00 K/UL 01785) HEMOGLOBIN [id number] 00:00:00 Test Item Value Reference Range Interpretation Comments HEMOGLOBIN A1c (test code = 20564) 8.4 % HEMOGLOBIN [id number] 00:00:00 Test Item Value Reference Range Interpretation Comments HEMOGLOBIN A1c (test code = 93063) 8.4 % HEMOGLOBIN [id number] 00:00:00 Test Item Value Reference Range Interpretation Comments HEMOGLOBIN A1c (test code = 76571) 8.4 % COMPREHENSIVE METABOLIC [id number] 00:00:00 Test Item Value Reference Range Interpretation Comments GLUCOSE (test code = 2217) 128 MG/DL BUN (test code = 2208) 15 MG/DL CREATININE (test code = 2214) 0.64 MG/DL eGFR AMER. (test code 131 ML/MIN/1.73 = 60224) eGFR NON- AMER. (test 113 ML/MIN/1.73 code = 27072) CALC BUN/CREAT (test code = 23 RATIO 2235) SODIUM (test code = 2231) 140 MEQ/L POTASSIUM (test code = 2228) 4.2 MEQ/L CHLORIDE (test code = 2215) 105 MEQ/L CARBON DIOXIDE (test code = 22 MEQ/L 220) CALCIUM (test code = 2209) 8.8 MG/DL PROTEIN, TOTAL (test code = 5.9 G/DL 2228) ALBUMIN (test code = 2201) 3.8 G/DL CALC GLOBULIN (test code = 2.1 G/DL 2240) CALC A/G RATIO (test code = 1.8 RATIO 2234) BILIRUBIN, TOTAL (test code = 0.6 MG/DL 2207) ALKALINE PHOSPHATASE (test 68 U/L code = 2204) AST (test code = 2218) 21 U/L ALT (test code = 2219) 37 U/L COMPREHENSIVE METABOLIC [id number] 00:00:00 Test Item Value Reference Range Interpretation Comments GLUCOSE (test code = 2217) 128 MG/DL BUN (test code = 2208) 15 MG/DL CREATININE (test code = 2214) 0.64 MG/DL eGFR AMER. (test code 131 ML/MIN/1.73 = 91634) eGFR NON- AMER. (test 113 ML/MIN/1.73 code = 21917) CALC BUN/CREAT (test code = 23 RATIO 2235) SODIUM (test code = 2231) 140 MEQ/L POTASSIUM (test code = 2228) 4.2 MEQ/L CHLORIDE (test code = 2215) 105 MEQ/L CARBON DIOXIDE (test code = 22 MEQ/L 2206) CALCIUM (test code = 2209) 8.8 MG/DL PROTEIN, TOTAL (test code = 5.9 G/DL 2229) ALBUMIN (test code = 2201) 3.8 G/DL CALC GLOBULIN (test code = 2.1 G/DL 2240) CALC A/G RATIO (test code = 1.8 RATIO 2234) BILIRUBIN, TOTAL (test code = 0.6 MG/DL 2207) ALKALINE PHOSPHATASE (test 68 U/L code = 2204) AST (test code = 2218) 21 U/L ALT (test code = 2219) 37 U/L CBC W/AUTO [id number] 00:00:00 Test Item Value Reference Range Interpretation Comments WBC (test code = 1001) 7.2 K/UL RBC (test code = 1002) 5.06 M/UL HEMOGLOBIN (test code = 1003) 15.3 G/DL HEMATOCRIT (test code = 1004) 44.9 % MCV (test code = 1005) 88.7 fL MCH (test code = 1006) 30.2 PG MCHC (test code = 1007) 34.1 G/DL RDW (test code = 1038) 16.0 % NEUTROPHILS (test code = 1008) 79.4 % LYMPHOCYTES (test code = 1010) 12.2 % MONOCYTES (test code = 1011) 6.9 % EOSINOPHILS (test code = 1012) 0.4 % BASOPHILS (test code = 1013) 0.4 % IMMATURE GRANULOCYTES (test 0.7 % code = 1036) NUCLEATED RBCS (test code = 0.0 /100WBC'S 1065) PLATELET COUNT (test code = 125 K/UL 1015) ABSOLUTE NEUTROPHILS (test code 5.72 K/UL = 1066) ABSOLUTE LYMPHOCYTES (test code 0.88 K/UL = 1067) ABSOLUTE MONOCYTES (test code = 0.50 K/UL 1068) ABSOLUTE EOSINOPHILS (test code 0.03 K/UL = 1040) ABSOLUTE BASOPHILS (test code = 0.03 K/UL 1069) ABS IMMATURE GRANULOCYTES (test 0.05 K/UL code = 1020) ABS NUCLEATED RBCS (test code = 0.00 K/UL 36740) HEMOGLOBIN [id number] 00:00:00 Test Item Value Reference Range Interpretation Comments HEMOGLOBIN A1c (test code = 87616) 8.4 % HEMOGLOBIN [id number] 00:00:00 Test Item Value Reference Range Interpretation Comments HEMOGLOBIN A1c (test code = 05370) 8.4 % HPV HIGH RISK WITH GENOTYPE, [id number] 00:00:00 Test Item Value Reference Range Interpretation Comments HPV HIGH RISK INTERP (test code = NEGATIVE 94115) HPV 16 (test code = 02049) NEGATIVE HPV 18 (test code = 69044) NEGATIVE HPV, HR, OTHER GENOTYPES (test code NEGATIVE = 13632) PAP TEST, THINPREP, [id number] 00:00:00 Test Item Value Reference Range Interpretation Comments SOURCE: (test code = Cervical/Endocervical 8001) SLIDES: (test code = 1 8011) LMP: (test code = 8021) 09/25/2020 SPECIMEN ADEQUACY: (test (NOTE) code = 12244) INTERPRETATION: (test NILM/NO EPITH. code = 13364) ABNORMALITY;SEE BELOW EXTRACT WRINGER: (test RAMY Turcios (ASCP) code = 8101) LOCATION: (test code = (NOTE) 77264) CPT: (test code = 8140) (NOTE) PAP TEST, THINPREP, [id number] 00:00:00 Test Item Value Reference Range Interpretation Comments SOURCE: (test code = Cervical/Endocervical 8001) SLIDES: (test code = 1 8011) LMP: (test code = 8021) 09/25/2020 SPECIMEN ADEQUACY: (test (NOTE) code = 14855) INTERPRETATION: (test NILM/NO EPITH. code = 45519) ABNORMALITY;SEE BELOW EXTRACT WRINGER: (test [place] Leal CT (ASCP) code = 8101) LOCATION: (test code = (NOTE) 11628) CPT: (test code = 8140) (NOTE) HPV HIGH RISK WITH GENOTYPE, [id number] 00:00:00 Test Item Value Reference Range Interpretation Comments HPV HIGH RISK INTERP (test code = NEGATIVE 33151) HPV 16 (test code = 84122) NEGATIVE HPV 18 (test code = 97265) NEGATIVE HPV, HR, OTHER GENOTYPES (test code NEGATIVE = 49315) HPV HIGH RISK WITH GENOTYPE, [id number] 00:00:00 Test Item Value Reference Range Interpretation Comments HPV HIGH RISK INTERP (test code = NEGATIVE 77380) HPV 16 (test code = 85989) NEGATIVE HPV 18 (test code = 53329) NEGATIVE HPV, HR, OTHER GENOTYPES (test code NEGATIVE = 03891) PAP TEST, THINPREP, [id number] 00:00:00 Test Item Value Reference Range Interpretation Comments SOURCE: (test code = Cervical/Endocervical 8001) SLIDES: (test code = 1 8011) LMP: (test code = 8021) 09/25/2020 SPECIMEN ADEQUACY: (test (NOTE) code = 02210) INTERPRETATION: (test NILM/NO EPITH. code = 00222) ABNORMALITY;SEE BELOW EXTRACT WRINGER: (test [place] Leal CT (ASCP) code = 8101) LOCATION: (test code = (NOTE) 70580) CPT: (test code = 8140) (NOTE) PAP TEST, THINPREP, [id number] 00:00:00 Test Item Value Reference Range Interpretation Comments SOURCE: (test code = Cervical/Endocervical 8001) SLIDES: (test code = 1 8011) LMP: (test code = 8021) 09/25/2020 SPECIMEN ADEQUACY: (test (NOTE) code = 90459) INTERPRETATION: (test NILM/NO EPITH. code = 51857) ABNORMALITY;SEE BELOW EXTRACT WRINGER: (test [place] [facility]al CT (ASCP) code = 8101) LOCATION: (test code = (NOTE) 49136) CPT: (test code = 8140) (NOTE) HPV HIGH RISK WITH GENOTYPE, [id number] 00:00:00 Test Item Value Reference Range Interpretation Comments HPV HIGH RISK INTERP (test code = NEGATIVE 04564) HPV 16 (test code = 63364) NEGATIVE HPV 18 (test code = 02491) NEGATIVE HPV, HR, OTHER GENOTYPES (test code NEGATIVE = 54535) HPV HIGH RISK WITH GENOTYPE, [id number] 00:00:00 Test Item Value Reference Range Interpretation Comments HPV HIGH RISK INTERP (test code = NEGATIVE 12376) HPV 16 (test code = 86673) NEGATIVE HPV 18 (test code = 74217) NEGATIVE HPV, HR, OTHER GENOTYPES (test code NEGATIVE = 82522) PAP TEST, THINPREP, [id number] 00:00:00 Test Item Value Reference Range Interpretation Comments SOURCE: (test code = Cervical/Endocervical 8001) SLIDES: (test code = 1 8011) LMP: (test code = 8021) 09/25/2020 SPECIMEN ADEQUACY: (test (NOTE) code = 52541) INTERPRETATION: (test NILM/NO EPITH. code = 83983) ABNORMALITY;SEE BELOW EXTRACT WRINGER: (test [place] Le[place] CT (ASCP) code = 8101) LOCATION: (test code = (NOTE) 59413) CPT: (test code = 8140) (NOTE) PAP TEST, THINPREP, [id number] 00:00:00 Test Item Value Reference Range Interpretation Comments SOURCE: (test code = Cervical/Endocervical 8001) SLIDES: (test code = 1 8011) LMP: (test code = 8021) 09/25/2020 SPECIMEN ADEQUACY: (test (NOTE) code = 01775) INTERPRETATION: (test NILM/NO EPITH. code = 55603) ABNORMALITY;SEE BELOW EXTRACT WRINGER: (test [place] Le[place] CT (ASCP) code = 8101) LOCATION: (test code = (NOTE) 09421) CPT: (test code = 8140) (NOTE) HPV HIGH RISK WITH GENOTYPE, [id number] 00:00:00 Test Item Value Reference Range Interpretation Comments HPV HIGH RISK INTERP (test code = NEGATIVE 05648) HPV 16 (test code = 43874) NEGATIVE HPV 18 (test code = 51477) NEGATIVE HPV, HR, OTHER GENOTYPES (test code NEGATIVE = 46582) HPV HIGH RISK WITH GENOTYPE, [id number] 00:00:00 Test Item Value Reference Range Interpretation Comments HPV HIGH RISK INTERP (test code = NEGATIVE 03233) HPV 16 (test code = 99044) NEGATIVE HPV 18 (test code = 03104) NEGATIVE HPV, HR, OTHER GENOTYPES (test code NEGATIVE = 66163) PAP TEST, THINPREP, [id number] 00:00:00 Test Item Value Reference Range Interpretation Comments SOURCE: (test code = Cervical/Endocervical 8001) SLIDES: (test code = 1 8011) LMP: (test code = 8021) 09/25/2020 SPECIMEN ADEQUACY: (test (NOTE) code = 11555) INTERPRETATION: (test NILM/NO EPITH. code = 42116) ABNORMALITY;SEE BELOW EXTRACT WRINGER: (test [place] [facility] CT (ASCP) code = 8101) LOCATION: (test code = (NOTE) 84108) CPT: (test code = 8140) (NOTE) PAP TEST, THINPREP, [id number] 00:00:00 Test Item Value Reference Range Interpretation Comments SOURCE: (test code = Cervical/Endocervical 8001) SLIDES: (test code = 1 8011) LMP: (test code = 8021) 09/25/2020 SPECIMEN ADEQUACY: (test (NOTE) code = 60058) INTERPRETATION: (test NILM/NO EPITH. code = 35717) ABNORMALITY;SEE BELOW EXTRACT WRINGER: (test [place] [facility] [facility] (ASCP) code = 8101) LOCATION: (test code = (NOTE) 67221) CPT: (test code = 8140) (NOTE) HPV HIGH RISK WITH GENOTYPE, [id number] 00:00:00 Test Item Value Reference Range Interpretation Comments HPV HIGH RISK INTERP (test code = NEGATIVE 70212) HPV 16 (test code = 44987) NEGATIVE HPV 18 (test code = 18323) NEGATIVE HPV, HR, OTHER GENOTYPES (test code NEGATIVE = 91742) HPV HIGH RISK WITH GENOTYPE, [id number] 00:00:00 Test Item Value Reference Range Interpretation Comments HPV HIGH RISK INTERP (test code = NEGATIVE 89475) HPV 16 (test code = 42800) NEGATIVE HPV 18 (test code = 88676) NEGATIVE HPV, HR, OTHER GENOTYPES (test code NEGATIVE = 93300) PAP TEST, THINPREP, [id number] 00:00:00 Test Item Value Reference Range Interpretation Comments SOURCE: (test code = Cervical/Endocervical 8001) SLIDES: (test code = 1 8011) LMP: (test code = 8021) 09/25/2020 SPECIMEN ADEQUACY: (test (NOTE) code = 67408) INTERPRETATION: (test NILM/NO EPITH. code = 37758) ABNORMALITY;SEE BELOW EXTRACT WRINGER: (test [place] [facility] CT (ASCP) code = 8101) LOCATION: (test code = (NOTE) 40942) CPT: (test code = 8140) (NOTE) PAP TEST, THINPREP, [id number] 00:00:00 Test Item Value Reference Range Interpretation Comments SOURCE: (test code = Cervical/Endocervical 8001) SLIDES: (test code = 1 8011) LMP: (test code = 8021) 09/25/2020 SPECIMEN ADEQUACY: (test (NOTE) code = 49723) INTERPRETATION: (test NILM/NO EPITH. code = 41655) ABNORMALITY;SEE BELOW EXTRACT WRINGER: (test [place] [facility] [facility] (ASCP) code = 8101) LOCATION: (test code = (NOTE) 74730) CPT: (test code = 8140) (NOTE) HPV HIGH RISK WITH GENOTYPE, [id number] 00:00:00 Test Item Value Reference Range Interpretation Comments HPV HIGH RISK INTERP (test code = NEGATIVE 07023) HPV 16 (test code = 84374) NEGATIVE HPV 18 (test code = 40324) NEGATIVE HPV, HR, OTHER GENOTYPES (test code NEGATIVE = 90020) PAP TEST, THINPREP, [id number] 00:00:00 Test Item Value Reference Range Interpretation Comments SOURCE: (test code = Cervical/Endocervical 8001) SLIDES: (test code = 1 8011) LMP: (test code = 8021) 09/25/2020 SPECIMEN ADEQUACY: (test (NOTE) code = 23610) INTERPRETATION: (test NILM/NO EPITH. code = 45078) ABNORMALITY;SEE BELOW EXTRACT WRINGER: (test [place] [facility] [facility] (ASCP) code = 8101) LOCATION: (test code = (NOTE) 34596) CPT: (test code = 8140) (NOTE) HPV HIGH RISK WITH GENOTYPE, [id number] 00:00:00 Test Item Value Reference Range Interpretation Comments HPV HIGH RISK INTERP (test code = NEGATIVE 18899) HPV 16 (test code = 00860) NEGATIVE HPV 18 (test code = 68649) NEGATIVE HPV, HR, OTHER GENOTYPES (test code NEGATIVE = 33707) [id number] 00:00:00 Test Item Value Reference Range Interpretation Comments TSH, THIRD GENERATION (test code 5.170 UIU/ML = 2821) CBC W/AUTO [id number] 00:00:00 Test Item Value Reference Range Interpretation Comments WBC (test code = 1001) 6.0 K/UL RBC (test code = 1002) 5.32 M/UL HEMOGLOBIN (test code = 1003) 14.9 G/DL HEMATOCRIT (test code = 1004) 43.8 % MCV (test code = 1005) 82.3 fL MCH (test code = 1006) 28.0 PG MCHC (test code = 1007) 34.0 G/DL RDW (test code = 1038) 13.0 % NEUTROPHILS (test code = 1008) 56.5 % LYMPHOCYTES (test code = 1010) 33.7 % MONOCYTES (test code = 1011) 6.6 % EOSINOPHILS (test code = 1012) 2.2 % BASOPHILS (test code = 1013) 1.0 % PLATELET COUNT (test code = 1015) 275 K/UL CBC W/AUTO [id number] 00:00:00 Test Item Value Reference Range Interpretation Comments WBC (test code = 1001) 6.0 K/UL RBC (test code = 1002) 5.32 M/UL HEMOGLOBIN (test code = 1003) 14.9 G/DL HEMATOCRIT (test code = 1004) 43.8 % MCV (test code = 1005) 82.3 fL MCH (test code = 1006) 28.0 PG MCHC (test code = 1007) 34.0 G/DL RDW (test code = 1038) 13.0 % NEUTROPHILS (test code = 1008) 56.5 % LYMPHOCYTES (test code = 1010) 33.7 % MONOCYTES (test code = 1011) 6.6 % EOSINOPHILS (test code = 1012) 2.2 % BASOPHILS (test code = 1013) 1.0 % PLATELET COUNT (test code = 1015) 275 K/UL CBC W/AUTO [id number] 00:00:00 Test Item Value Reference Range Interpretation Comments WBC (test code = 1001) 6.0 K/UL RBC (test code = 1002) 5.32 M/UL HEMOGLOBIN (test code = 1003) 14.9 G/DL HEMATOCRIT (test code = 1004) 43.8 % MCV (test code = 1005) 82.3 fL MCH (test code = 1006) 28.0 PG MCHC (test code = 1007) 34.0 G/DL RDW (test code = 1038) 13.0 % NEUTROPHILS (test code = 1008) 56.5 % LYMPHOCYTES (test code = 1010) 33.7 % MONOCYTES (test code = 1011) 6.6 % EOSINOPHILS (test code = 1012) 2.2 % BASOPHILS (test code = 1013) 1.0 % PLATELET COUNT (test code = 1015) 275 K/UL [id number] 00:00:00 Test Item Value Reference Range Interpretation Comments TSH, THIRD GENERATION (test code 5.170 UIU/ML = 2821) [id number] 00:00:00 Test Item Value Reference Range Interpretation Comments TSH, THIRD GENERATION (test code 5.170 UIU/ML = 2821) [id number] 00:00:00 Test Item Value Reference Range Interpretation Comments TSH, THIRD GENERATION (test code 5.170 UIU/ML = 2821) CBC W/AUTO [id number] 00:00:00 Test Item Value Reference Range Interpretation Comments WBC (test code = 1001) 6.0 K/UL RBC (test code = 1002) 5.32 M/UL HEMOGLOBIN (test code = 1003) 14.9 G/DL HEMATOCRIT (test code = 1004) 43.8 % MCV (test code = 1005) 82.3 fL MCH (test code = 1006) 28.0 PG MCHC (test code = 1007) 34.0 G/DL RDW (test code = 1038) 13.0 % NEUTROPHILS (test code = 1008) 56.5 % LYMPHOCYTES (test code = 1010) 33.7 % MONOCYTES (test code = 1011) 6.6 % EOSINOPHILS (test code = 1012) 2.2 % BASOPHILS (test code = 1013) 1.0 % PLATELET COUNT (test code = 1015) 275 K/UL CBC W/AUTO [id number] 00:00:00 Test Item Value Reference Range Interpretation Comments WBC (test code = 1001) 6.0 K/UL RBC (test code = 1002) 5.32 M/UL HEMOGLOBIN (test code = 1003) 14.9 G/DL HEMATOCRIT (test code = 1004) 43.8 % MCV (test code = 1005) 82.3 fL MCH (test code = 1006) 28.0 PG MCHC (test code = 1007) 34.0 G/DL RDW (test code = 1038) 13.0 % NEUTROPHILS (test code = 1008) 56.5 % LYMPHOCYTES (test code = 1010) 33.7 % MONOCYTES (test code = 1011) 6.6 % EOSINOPHILS (test code = 1012) 2.2 % BASOPHILS (test code = 1013) 1.0 % PLATELET COUNT (test code = 1015) 275 K/UL CBC W/AUTO [id number] 00:00:00 Test Item Value Reference Range Interpretation Comments WBC (test code = 1001) 6.0 K/UL RBC (test code = 1002) 5.32 M/UL HEMOGLOBIN (test code = 1003) 14.9 G/DL HEMATOCRIT (test code = 1004) 43.8 % MCV (test code = 1005) 82.3 fL MCH (test code = 1006) 28.0 PG MCHC (test code = 1007) 34.0 G/DL RDW (test code = 1038) 13.0 % NEUTROPHILS (test code = 1008) 56.5 % LYMPHOCYTES (test code = 1010) 33.7 % MONOCYTES (test code = 1011) 6.6 % EOSINOPHILS (test code = 1012) 2.2 % BASOPHILS (test code = 1013) 1.0 % PLATELET COUNT (test code = 1015) 275 K/UL [id number] 00:00:00 Test Item Value Reference Range Interpretation Comments TSH, THIRD GENERATION (test code 5.170 UIU/ML = 2821) [id number] 00:00:00 Test Item Value Reference Range Interpretation Comments TSH, THIRD GENERATION (test code 5.170 UIU/ML = 2821) [id number] 00:00:00 Test Item Value Reference Range Interpretation Comments TSH, THIRD GENERATION (test code 5.170 UIU/ML = 2821) CBC W/AUTO [id number] 00:00:00 Test Item Value Reference Range Interpretation Comments WBC (test code = 1001) 6.0 K/UL RBC (test code = 1002) 5.32 M/UL HEMOGLOBIN (test code = 1003) 14.9 G/DL HEMATOCRIT (test code = 1004) 43.8 % MCV (test code = 1005) 82.3 fL MCH (test code = 1006) 28.0 PG MCHC (test code = 1007) 34.0 G/DL RDW (test code = 1038) 13.0 % NEUTROPHILS (test code = 1008) 56.5 % LYMPHOCYTES (test code = 1010) 33.7 % MONOCYTES (test code = 1011) 6.6 % EOSINOPHILS (test code = 1012) 2.2 % BASOPHILS (test code = 1013) 1.0 % PLATELET COUNT (test code = 1015) 275 K/UL CBC W/AUTO [id number] 00:00:00 Test Item Value Reference Range Interpretation Comments WBC (test code = 1001) 6.0 K/UL RBC (test code = 1002) 5.32 M/UL HEMOGLOBIN (test code = 1003) 14.9 G/DL HEMATOCRIT (test code = 1004) 43.8 % MCV (test code = 1005) 82.3 fL MCH (test code = 1006) 28.0 PG MCHC (test code = 1007) 34.0 G/DL RDW (test code = 1038) 13.0 % NEUTROPHILS (test code = 1008) 56.5 % LYMPHOCYTES (test code = 1010) 33.7 % MONOCYTES (test code = 1011) 6.6 % EOSINOPHILS (test code = 1012) 2.2 % BASOPHILS (test code = 1013) 1.0 % PLATELET COUNT (test code = 1015) 275 K/UL CBC W/AUTO [id number] 00:00:00 Test Item Value Reference Range Interpretation Comments WBC (test code = 1001) 6.0 K/UL RBC (test code = 1002) 5.32 M/UL HEMOGLOBIN (test code = 1003) 14.9 G/DL HEMATOCRIT (test code = 1004) 43.8 % MCV (test code = 1005) 82.3 fL MCH (test code = 1006) 28.0 PG MCHC (test code = 1007) 34.0 G/DL RDW (test code = 1038) 13.0 % NEUTROPHILS (test code = 1008) 56.5 % LYMPHOCYTES (test code = 1010) 33.7 % MONOCYTES (test code = 1011) 6.6 % EOSINOPHILS (test code = 1012) 2.2 % BASOPHILS (test code = 1013) 1.0 % PLATELET COUNT (test code = 1015) 275 K/UL [id number] 00:00:00 Test Item Value Reference Range Interpretation Comments TSH, THIRD GENERATION (test code 5.170 UIU/ML = 2821) [id number] 00:00:00 Test Item Value Reference Range Interpretation Comments TSH, THIRD GENERATION (test code 5.170 UIU/ML = 2821) [id number] 00:00:00 Test Item Value Reference Range Interpretation Comments TSH, THIRD GENERATION (test code 5.170 UIU/ML = 2821) CBC W/AUTO [id number] 00:00:00 Test Item Value Reference Range Interpretation Comments WBC (test code = 1001) 6.0 K/UL RBC (test code = 1002) 5.32 M/UL HEMOGLOBIN (test code = 1003) 14.9 G/DL HEMATOCRIT (test code = 1004) 43.8 % MCV (test code = 1005) 82.3 fL MCH (test code = 1006) 28.0 PG MCHC (test code = 1007) 34.0 G/DL RDW (test code = 1038) 13.0 % NEUTROPHILS (test code = 1008) 56.5 % LYMPHOCYTES (test code = 1010) 33.7 % MONOCYTES (test code = 1011) 6.6 % EOSINOPHILS (test code = 1012) 2.2 % BASOPHILS (test code = 1013) 1.0 % PLATELET COUNT (test code = 1015) 275 K/UL CBC W/AUTO [id number] 00:00:00 Test Item Value Reference Range Interpretation Comments WBC (test code = 1001) 6.0 K/UL RBC (test code = 1002) 5.32 M/UL HEMOGLOBIN (test code = 1003) 14.9 G/DL HEMATOCRIT (test code = 1004) 43.8 % MCV (test code = 1005) 82.3 fL MCH (test code = 1006) 28.0 PG MCHC (test code = 1007) 34.0 G/DL RDW (test code = 1038) 13.0 % NEUTROPHILS (test code = 1008) 56.5 % LYMPHOCYTES (test code = 1010) 33.7 % MONOCYTES (test code = 1011) 6.6 % EOSINOPHILS (test code = 1012) 2.2 % BASOPHILS (test code = 1013) 1.0 % PLATELET COUNT (test code = 1015) 275 K/UL CBC W/AUTO [id number] 00:00:00 Test Item Value Reference Range Interpretation Comments WBC (test code = 1001) 6.0 K/UL RBC (test code = 1002) 5.32 M/UL HEMOGLOBIN (test code = 1003) 14.9 G/DL HEMATOCRIT (test code = 1004) 43.8 % MCV (test code = 1005) 82.3 fL MCH (test code = 1006) 28.0 PG MCHC (test code = 1007) 34.0 G/DL RDW (test code = 1038) 13.0 % NEUTROPHILS (test code = 1008) 56.5 % LYMPHOCYTES (test code = 1010) 33.7 % MONOCYTES (test code = 1011) 6.6 % EOSINOPHILS (test code = 1012) 2.2 % BASOPHILS (test code = 1013) 1.0 % PLATELET COUNT (test code = 1015) 275 K/UL [id number] 00:00:00 Test Item Value Reference Range Interpretation Comments TSH, THIRD GENERATION (test code 5.170 UIU/ML = 2821) [id number] 00:00:00 Test Item Value Reference Range Interpretation Comments TSH, THIRD GENERATION (test code 5.170 UIU/ML = 2821) [id number] 00:00:00 Test Item Value Reference Range Interpretation Comments TSH, THIRD GENERATION (test code 5.170 UIU/ML = 2821) CBC W/AUTO [id number] 00:00:00 Test Item Value Reference Range Interpretation Comments WBC (test code = 1001) 6.0 K/UL RBC (test code = 1002) 5.32 M/UL HEMOGLOBIN (test code = 1003) 14.9 G/DL HEMATOCRIT (test code = 1004) 43.8 % MCV (test code = 1005) 82.3 fL MCH (test code = 1006) 28.0 PG MCHC (test code = 1007) 34.0 G/DL RDW (test code = 1038) 13.0 % NEUTROPHILS (test code = 1008) 56.5 % LYMPHOCYTES (test code = 1010) 33.7 % MONOCYTES (test code = 1011) 6.6 % EOSINOPHILS (test code = 1012) 2.2 % BASOPHILS (test code = 1013) 1.0 % PLATELET COUNT (test code = 1015) 275 K/UL CBC W/AUTO [id number] 00:00:00 Test Item Value Reference Range Interpretation Comments WBC (test code = 1001) 6.0 K/UL RBC (test code = 1002) 5.32 M/UL HEMOGLOBIN (test code = 1003) 14.9 G/DL HEMATOCRIT (test code = 1004) 43.8 % MCV (test code = 1005) 82.3 fL MCH (test code = 1006) 28.0 PG MCHC (test code = 1007) 34.0 G/DL RDW (test code = 1038) 13.0 % NEUTROPHILS (test code = 1008) 56.5 % LYMPHOCYTES (test code = 1010) 33.7 % MONOCYTES (test code = 1011) 6.6 % EOSINOPHILS (test code = 1012) 2.2 % BASOPHILS (test code = 1013) 1.0 % PLATELET COUNT (test code = 1015) 275 K/UL CBC W/AUTO [id number] 00:00:00 Test Item Value Reference Range Interpretation Comments WBC (test code = 1001) 6.0 K/UL RBC (test code = 1002) 5.32 M/UL HEMOGLOBIN (test code = 1003) 14.9 G/DL HEMATOCRIT (test code = 1004) 43.8 % MCV (test code = 1005) 82.3 fL MCH (test code = 1006) 28.0 PG MCHC (test code = 1007) 34.0 G/DL RDW (test code = 1038) 13.0 % NEUTROPHILS (test code = 1008) 56.5 % LYMPHOCYTES (test code = 1010) 33.7 % MONOCYTES (test code = 1011) 6.6 % EOSINOPHILS (test code = 1012) 2.2 % BASOPHILS (test code = 1013) 1.0 % PLATELET COUNT (test code = 1015) 275 K/UL CBC W/AUTO [id number] 00:00:00 Test Item Value Reference Range Interpretation Comments WBC (test code = 1001) 6.0 K/UL RBC (test code = 1002) 5.32 M/UL HEMOGLOBIN (test code = 1003) 14.9 G/DL HEMATOCRIT (test code = 1004) 43.8 % MCV (test code = 1005) 82.3 fL MCH (test code = 1006) 28.0 PG MCHC (test code = 1007) 34.0 G/DL RDW (test code = 1038) 13.0 % NEUTROPHILS (test code = 1008) 56.5 % LYMPHOCYTES (test code = 1010) 33.7 % MONOCYTES (test code = 1011) 6.6 % EOSINOPHILS (test code = 1012) 2.2 % BASOPHILS (test code = 1013) 1.0 % PLATELET COUNT (test code = 1015) 275 K/UL [id number] 00:00:00 Test Item Value Reference Range Interpretation Comments TSH, THIRD GENERATION (test code 5.170 UIU/ML = 2821) [id number] 00:00:00 Test Item Value Reference Range Interpretation Comments TSH, THIRD GENERATION (test code 5.170 UIU/ML = 2821) [id number] 00:00:00 Test Item Value Reference Range Interpretation Comments TSH, THIRD GENERATION (test code 5.170 UIU/ML = 2821) CBC W/AUTO [id number] 00:00:00 Test Item Value Reference Range Interpretation Comments WBC (test code = 1001) 6.0 K/UL RBC (test code = 1002) 5.32 M/UL HEMOGLOBIN (test code = 1003) 14.9 G/DL HEMATOCRIT (test code = 1004) 43.8 % MCV (test code = 1005) 82.3 fL MCH (test code = 1006) 28.0 PG MCHC (test code = 1007) 34.0 G/DL RDW (test code = 1038) 13.0 % NEUTROPHILS (test code = 1008) 56.5 % LYMPHOCYTES (test code = 1010) 33.7 % MONOCYTES (test code = 1011) 6.6 % EOSINOPHILS (test code = 1012) 2.2 % BASOPHILS (test code = 1013) 1.0 % PLATELET COUNT (test code = 1015) 275 K/UL [id number] 00:00:00 Test Item Value Reference Range Interpretation Comments TSH, THIRD GENERATION (test code 5.170 UIU/ML = 2821) CBC W/AUTO [id number] 00:00:00 Test Item Value Reference Range Interpretation Comments WBC (test code = 1001) 8.9 K/UL RBC (test code = 1002) 5.03 M/UL HEMOGLOBIN (test code = 1003) 9.1 G/DL HEMATOCRIT (test code = 1004) 32.4 % MCV (test code = 1005) 64.4 fL MCH (test code = 1006) 18.1 PG MCHC (test code = 1007) 28.1 G/DL RDW (test code = 1038) 21.1 % NEUTROPHILS (test code = 1008) 54.0 % LYMPHOCYTES (test code = 1010) 34.2 % MONOCYTES (test code = 1011) 5.9 % EOSINOPHILS (test code = 1012) 3.9 % BASOPHILS (test code = 1013) 2.0 % PLATELET COUNT (test code = 1015) 325 K/UL COMMENTS (test code = 1016) (NOTE) THYROID II PROFILE (T3U, T4, T7, TSH)2017-01-27 00:00:00 Test Item Value Reference Range Interpretation Comments T3 UPTAKE (test code = 2817) 31.7 % T4 (THYROXINE) (test code = 2819) 6.1 UG/DL CALCULATED T7 (FTI) (test code = 1.93 2820) TSH (test code = 2821) 0.44 UIU/ML THYROID II PROFILE (T3U, T4, T7, TSH)2017-01-27 00:00:00 Test Item Value Reference Range Interpretation Comments T3 UPTAKE (test code = 2817) 31.7 % T4 (THYROXINE) (test code = 2819) 6.1 UG/DL CALCULATED T7 (FTI) (test code = 1.93 2820) TSH (test code = 2821) 0.44 UIU/ML CBC W/AUTO [id number] 00:00:00 Test Item Value Reference Range Interpretation Comments WBC (test code = 1001) 8.9 K/UL RBC (test code = 1002) 5.03 M/UL HEMOGLOBIN (test code = 1003) 9.1 G/DL HEMATOCRIT (test code = 1004) 32.4 % MCV (test code = 1005) 64.4 fL MCH (test code = 1006) 18.1 PG MCHC (test code = 1007) 28.1 G/DL RDW (test code = 1038) 21.1 % NEUTROPHILS (test code = 1008) 54.0 % LYMPHOCYTES (test code = 1010) 34.2 % MONOCYTES (test code = 1011) 5.9 % EOSINOPHILS (test code = 1012) 3.9 % BASOPHILS (test code = 1013) 2.0 % PLATELET COUNT (test code = 1015) 325 K/UL COMMENTS (test code = 1016) (NOTE) CBC W/AUTO [id number] 00:00:00 Test Item Value Reference Range Interpretation Comments WBC (test code = 1001) 8.9 K/UL RBC (test code = 1002) 5.03 M/UL HEMOGLOBIN (test code = 1003) 9.1 G/DL HEMATOCRIT (test code = 1004) 32.4 % MCV (test code = 1005) 64.4 fL MCH (test code = 1006) 18.1 PG MCHC (test code = 1007) 28.1 G/DL RDW (test code = 1038) 21.1 % NEUTROPHILS (test code = 1008) 54.0 % LYMPHOCYTES (test code = 1010) 34.2 % MONOCYTES (test code = 1011) 5.9 % EOSINOPHILS (test code = 1012) 3.9 % BASOPHILS (test code = 1013) 2.0 % PLATELET COUNT (test code = 1015) 325 K/UL COMMENTS (test code = 1016) (NOTE) CBC W/AUTO [id number] 00:00:00 Test Item Value Reference Range Interpretation Comments WBC (test code = 1001) 8.9 K/UL RBC (test code = 1002) 5.03 M/UL HEMOGLOBIN (test code = 1003) 9.1 G/DL HEMATOCRIT (test code = 1004) 32.4 % MCV (test code = 1005) 64.4 fL MCH (test code = 1006) 18.1 PG MCHC (test code = 1007) 28.1 G/DL RDW (test code = 1038) 21.1 % NEUTROPHILS (test code = 1008) 54.0 % LYMPHOCYTES (test code = 1010) 34.2 % MONOCYTES (test code = 1011) 5.9 % EOSINOPHILS (test code = 1012) 3.9 % BASOPHILS (test code = 1013) 2.0 % PLATELET COUNT (test code = 1015) 325 K/UL COMMENTS (test code = 1016) (NOTE) THYROID II PROFILE (T3U, T4, T7, TSH)2017-01-27 00:00:00 Test Item Value Reference Range Interpretation Comments T3 UPTAKE (test code = 2817) 31.7 % T4 (THYROXINE) (test code = 2819) 6.1 UG/DL CALCULATED T7 (FTI) (test code = 1.93 2820) TSH (test code = 2821) 0.44 UIU/ML THYROID II PROFILE (T3U, T4, T7, TSH)2017-01-27 00:00:00 Test Item Value Reference Range Interpretation Comments T3 UPTAKE (test code = 2817) 31.7 % T4 (THYROXINE) (test code = 2819) 6.1 UG/DL CALCULATED T7 (FTI) (test code = 1.93 2820) TSH (test code = 2821) 0.44 UIU/ML CBC W/AUTO [id number] 00:00:00 Test Item Value Reference Range Interpretation Comments WBC (test code = 1001) 8.9 K/UL RBC (test code = 1002) 5.03 M/UL HEMOGLOBIN (test code = 1003) 9.1 G/DL HEMATOCRIT (test code = 1004) 32.4 % MCV (test code = 1005) 64.4 fL MCH (test code = 1006) 18.1 PG MCHC (test code = 1007) 28.1 G/DL RDW (test code = 1038) 21.1 % NEUTROPHILS (test code = 1008) 54.0 % LYMPHOCYTES (test code = 1010) 34.2 % MONOCYTES (test code = 1011) 5.9 % EOSINOPHILS (test code = 1012) 3.9 % BASOPHILS (test code = 1013) 2.0 % PLATELET COUNT (test code = 1015) 325 K/UL COMMENTS (test code = 1016) (NOTE) CBC W/AUTO [id number] 00:00:00 Test Item Value Reference Range Interpretation Comments WBC (test code = 1001) 8.9 K/UL RBC (test code = 1002) 5.03 M/UL HEMOGLOBIN (test code = 1003) 9.1 G/DL HEMATOCRIT (test code = 1004) 32.4 % MCV (test code = 1005) 64.4 fL MCH (test code = 1006) 18.1 PG MCHC (test code = 1007) 28.1 G/DL RDW (test code = 1038) 21.1 % NEUTROPHILS (test code = 1008) 54.0 % LYMPHOCYTES (test code = 1010) 34.2 % MONOCYTES (test code = 1011) 5.9 % EOSINOPHILS (test code = 1012) 3.9 % BASOPHILS (test code = 1013) 2.0 % PLATELET COUNT (test code = 1015) 325 K/UL COMMENTS (test code = 1016) (NOTE) CBC W/AUTO [id number] 00:00:00 Test Item Value Reference Range Interpretation Comments WBC (test code = 1001) 8.9 K/UL RBC (test code = 1002) 5.03 M/UL HEMOGLOBIN (test code = 1003) 9.1 G/DL HEMATOCRIT (test code = 1004) 32.4 % MCV (test code = 1005) 64.4 fL MCH (test code = 1006) 18.1 PG MCHC (test code = 1007) 28.1 G/DL RDW (test code = 1038) 21.1 % NEUTROPHILS (test code = 1008) 54.0 % LYMPHOCYTES (test code = 1010) 34.2 % MONOCYTES (test code = 1011) 5.9 % EOSINOPHILS (test code = 1012) 3.9 % BASOPHILS (test code = 1013) 2.0 % PLATELET COUNT (test code = 1015) 325 K/UL COMMENTS (test code = 1016) (NOTE) THYROID II PROFILE (T3U, T4, T7, TSH)2017-01-27 00:00:00 Test Item Value Reference Range Interpretation Comments T3 UPTAKE (test code = 2817) 31.7 % T4 (THYROXINE) (test code = 2819) 6.1 UG/DL CALCULATED T7 (FTI) (test code = 1.93 2820) TSH (test code = 2821) 0.44 UIU/ML THYROID II PROFILE (T3U, T4, T7, TSH)2017-01-27 00:00:00 Test Item Value Reference Range Interpretation Comments T3 UPTAKE (test code = 2817) 31.7 % T4 (THYROXINE) (test code = 2819) 6.1 UG/DL CALCULATED T7 (FTI) (test code = 1.93 2820) TSH (test code = 2821) 0.44 UIU/ML CBC W/AUTO [id number] 00:00:00 Test Item Value Reference Range Interpretation Comments WBC (test code = 1001) 8.9 K/UL RBC (test code = 1002) 5.03 M/UL HEMOGLOBIN (test code = 1003) 9.1 G/DL HEMATOCRIT (test code = 1004) 32.4 % MCV (test code = 1005) 64.4 fL MCH (test code = 1006) 18.1 PG MCHC (test code = 1007) 28.1 G/DL RDW (test code = 1038) 21.1 % NEUTROPHILS (test code = 1008) 54.0 % LYMPHOCYTES (test code = 1010) 34.2 % MONOCYTES (test code = 1011) 5.9 % EOSINOPHILS (test code = 1012) 3.9 % BASOPHILS (test code = 1013) 2.0 % PLATELET COUNT (test code = 1015) 325 K/UL COMMENTS (test code = 1016) (NOTE) CBC W/AUTO [id number] 00:00:00 Test Item Value Reference Range Interpretation Comments WBC (test code = 1001) 8.9 K/UL RBC (test code = 1002) 5.03 M/UL HEMOGLOBIN (test code = 1003) 9.1 G/DL HEMATOCRIT (test code = 1004) 32.4 % MCV (test code = 1005) 64.4 fL MCH (test code = 1006) 18.1 PG MCHC (test code = 1007) 28.1 G/DL RDW (test code = 1038) 21.1 % NEUTROPHILS (test code = 1008) 54.0 % LYMPHOCYTES (test code = 1010) 34.2 % MONOCYTES (test code = 1011) 5.9 % EOSINOPHILS (test code = 1012) 3.9 % BASOPHILS (test code = 1013) 2.0 % PLATELET COUNT (test code = 1015) 325 K/UL COMMENTS (test code = 1016) (NOTE) CBC W/AUTO [id number] 00:00:00 Test Item Value Reference Range Interpretation Comments WBC (test code = 1001) 8.9 K/UL RBC (test code = 1002) 5.03 M/UL HEMOGLOBIN (test code = 1003) 9.1 G/DL HEMATOCRIT (test code = 1004) 32.4 % MCV (test code = 1005) 64.4 fL MCH (test code = 1006) 18.1 PG MCHC (test code = 1007) 28.1 G/DL RDW (test code = 1038) 21.1 % NEUTROPHILS (test code = 1008) 54.0 % LYMPHOCYTES (test code = 1010) 34.2 % MONOCYTES (test code = 1011) 5.9 % EOSINOPHILS (test code = 1012) 3.9 % BASOPHILS (test code = 1013) 2.0 % PLATELET COUNT (test code = 1015) 325 K/UL COMMENTS (test code = 1016) (NOTE) THYROID II PROFILE (T3U, T4, T7, TSH)2017-01-27 00:00:00 Test Item Value Reference Range Interpretation Comments T3 UPTAKE (test code = 2817) 31.7 % T4 (THYROXINE) (test code = 2819) 6.1 UG/DL CALCULATED T7 (FTI) (test code = 1.93 2820) TSH (test code = 2821) 0.44 UIU/ML THYROID II PROFILE (T3U, T4, T7, TSH)2017-01-27 00:00:00 Test Item Value Reference Range Interpretation Comments T3 UPTAKE (test code = 2817) 31.7 % T4 (THYROXINE) (test code = 2819) 6.1 UG/DL CALCULATED T7 (FTI) (test code = 1.93 2820) TSH (test code = 2821) 0.44 UIU/ML CBC W/AUTO [id number] 00:00:00 Test Item Value Reference Range Interpretation Comments WBC (test code = 1001) 8.9 K/UL RBC (test code = 1002) 5.03 M/UL HEMOGLOBIN (test code = 1003) 9.1 G/DL HEMATOCRIT (test code = 1004) 32.4 % MCV (test code = 1005) 64.4 fL MCH (test code = 1006) 18.1 PG MCHC (test code = 1007) 28.1 G/DL RDW (test code = 1038) 21.1 % NEUTROPHILS (test code = 1008) 54.0 % LYMPHOCYTES (test code = 1010) 34.2 % MONOCYTES (test code = 1011) 5.9 % EOSINOPHILS (test code = 1012) 3.9 % BASOPHILS (test code = 1013) 2.0 % PLATELET COUNT (test code = 1015) 325 K/UL COMMENTS (test code = 1016) (NOTE) CBC W/AUTO [id number] 00:00:00 Test Item Value Reference Range Interpretation Comments WBC (test code = 1001) 8.9 K/UL RBC (test code = 1002) 5.03 M/UL HEMOGLOBIN (test code = 1003) 9.1 G/DL HEMATOCRIT (test code = 1004) 32.4 % MCV (test code = 1005) 64.4 fL MCH (test code = 1006) 18.1 PG MCHC (test code = 1007) 28.1 G/DL RDW (test code = 1038) 21.1 % NEUTROPHILS (test code = 1008) 54.0 % LYMPHOCYTES (test code = 1010) 34.2 % MONOCYTES (test code = 1011) 5.9 % EOSINOPHILS (test code = 1012) 3.9 % BASOPHILS (test code = 1013) 2.0 % PLATELET COUNT (test code = 1015) 325 K/UL COMMENTS (test code = 1016) (NOTE) CBC W/AUTO [id number] 00:00:00 Test Item Value Reference Range Interpretation Comments WBC (test code = 1001) 8.9 K/UL RBC (test code = 1002) 5.03 M/UL HEMOGLOBIN (test code = 1003) 9.1 G/DL HEMATOCRIT (test code = 1004) 32.4 % MCV (test code = 1005) 64.4 fL MCH (test code = 1006) 18.1 PG MCHC (test code = 1007) 28.1 G/DL RDW (test code = 1038) 21.1 % NEUTROPHILS (test code = 1008) 54.0 % LYMPHOCYTES (test code = 1010) 34.2 % MONOCYTES (test code = 1011) 5.9 % EOSINOPHILS (test code = 1012) 3.9 % BASOPHILS (test code = 1013) 2.0 % PLATELET COUNT (test code = 1015) 325 K/UL COMMENTS (test code = 1016) (NOTE) THYROID II PROFILE (T3U, T4, T7, TSH)2017-01-27 00:00:00 Test Item Value Reference Range Interpretation Comments T3 UPTAKE (test code = 2817) 31.7 % T4 (THYROXINE) (test code = 2819) 6.1 UG/DL CALCULATED T7 (FTI) (test code = 1.93 2820) TSH (test code = 2821) 0.44 UIU/ML THYROID II PROFILE (T3U, T4, T7, TSH)2017-01-27 00:00:00 Test Item Value Reference Range Interpretation Comments T3 UPTAKE (test code = 2817) 31.7 % T4 (THYROXINE) (test code = 2819) 6.1 UG/DL CALCULATED T7 (FTI) (test code = 1.93 2820) TSH (test code = 2821) 0.44 UIU/ML CBC W/AUTO [id number] 00:00:00 Test Item Value Reference Range Interpretation Comments WBC (test code = 1001) 8.9 K/UL RBC (test code = 1002) 5.03 M/UL HEMOGLOBIN (test code = 1003) 9.1 G/DL HEMATOCRIT (test code = 1004) 32.4 % MCV (test code = 1005) 64.4 fL MCH (test code = 1006) 18.1 PG MCHC (test code = 1007) 28.1 G/DL RDW (test code = 1038) 21.1 % NEUTROPHILS (test code = 1008) 54.0 % LYMPHOCYTES (test code = 1010) 34.2 % MONOCYTES (test code = 1011) 5.9 % EOSINOPHILS (test code = 1012) 3.9 % BASOPHILS (test code = 1013) 2.0 % PLATELET COUNT (test code = 1015) 325 K/UL COMMENTS (test code = 1016) (NOTE) CBC W/AUTO [id number] 00:00:00 Test Item Value Reference Range Interpretation Comments WBC (test code = 1001) 8.9 K/UL RBC (test code = 1002) 5.03 M/UL HEMOGLOBIN (test code = 1003) 9.1 G/DL HEMATOCRIT (test code = 1004) 32.4 % MCV (test code = 1005) 64.4 fL MCH (test code = 1006) 18.1 PG MCHC (test code = 1007) 28.1 G/DL RDW (test code = 1038) 21.1 % NEUTROPHILS (test code = 1008) 54.0 % LYMPHOCYTES (test code = 1010) 34.2 % MONOCYTES (test code = 1011) 5.9 % EOSINOPHILS (test code = 1012) 3.9 % BASOPHILS (test code = 1013) 2.0 % PLATELET COUNT (test code = 1015) 325 K/UL COMMENTS (test code = 1016) (NOTE) CBC W/AUTO [id number] 00:00:00 Test Item Value Reference Range Interpretation Comments WBC (test code = 1001) 8.9 K/UL RBC (test code = 1002) 5.03 M/UL HEMOGLOBIN (test code = 1003) 9.1 G/DL HEMATOCRIT (test code = 1004) 32.4 % MCV (test code = 1005) 64.4 fL MCH (test code = 1006) 18.1 PG MCHC (test code = 1007) 28.1 G/DL RDW (test code = 1038) 21.1 % NEUTROPHILS (test code = 1008) 54.0 % LYMPHOCYTES (test code = 1010) 34.2 % MONOCYTES (test code = 1011) 5.9 % EOSINOPHILS (test code = 1012) 3.9 % BASOPHILS (test code = 1013) 2.0 % PLATELET COUNT (test code = 1015) 325 K/UL COMMENTS (test code = 1016) (NOTE) THYROID II PROFILE (T3U, T4, T7, TSH)2017-01-27 00:00:00 Test Item Value Reference Range Interpretation Comments T3 UPTAKE (test code = 2817) 31.7 % T4 (THYROXINE) (test code = 2819) 6.1 UG/DL CALCULATED T7 (FTI) (test code = 1.93 2820) TSH (test code = 2821) 0.44 UIU/ML CBC W/AUTO [id number] 00:00:00 Test Item Value Reference Range Interpretation Comments WBC (test code = 1001) 8.9 K/UL RBC (test code = 1002) 5.03 M/UL HEMOGLOBIN (test code = 1003) 9.1 G/DL HEMATOCRIT (test code = 1004) 32.4 % MCV (test code = 1005) 64.4 fL MCH (test code = 1006) 18.1 PG MCHC (test code = 1007) 28.1 G/DL RDW (test code = 1038) 21.1 % NEUTROPHILS (test code = 1008) 54.0 % LYMPHOCYTES (test code = 1010) 34.2 % MONOCYTES (test code = 1011) 5.9 % EOSINOPHILS (test code = 1012) 3.9 % BASOPHILS (test code = 1013) 2.0 % PLATELET COUNT (test code = 1015) 325 K/UL COMMENTS (test code = 1016) (NOTE) IRON BINDING CAPACITY AND IRON AND % [id number] 00:00:00 Test Item Value Reference Range Interpretation Comments IRON, SERUM (test code = 2222) 12 UG/DL UNSATURATED IBC (test code = 38720) 496 UG/DL CALC TOTAL IBC (test code = 2077) 508 UG/DL CALC % IRON SAT (test code = 2079) 2 % CBC W/AUTO [id number] 00:00:00 Test Item Value Reference Range Interpretation Comments WBC (test code = 1001) 7.9 K/UL RBC (test code = 1002) 3.52 M/UL HEMOGLOBIN (test code = 1003) 6.9 G/DL HEMATOCRIT (test code = 1004) 24.1 % MCV (test code = 1005) 68.5 fL MCH (test code = 1006) 19.6 PG MCHC (test code = 1007) 28.6 G/DL RDW (test code = 1038) 23.5 % NEUTROPHILS (test code = 1008) 62.1 % LYMPHOCYTES (test code = 1010) 28.8 % MONOCYTES (test code = 1011) 5.6 % EOSINOPHILS (test code = 1012) 2.4 % BASOPHILS (test code = 1013) 1.1 % PLATELET COUNT (test code = 1015) 553 K/UL COMMENTS (test code = 1016) (NOTE) [id number] 00:00:00 Test Item Value Reference Range Interpretation Comments FERRITIN (test code = 2074) 2 NG/ML [id number] 00:00:00 Test Item Value Reference Range Interpretation Comments FERRITIN (test code = 2074) 2 NG/ML IRON BINDING CAPACITY AND IRON AND % [id number] 00:00:00 Test Item Value Reference Range Interpretation Comments IRON, SERUM (test code = 2) 12 UG/DL UNSATURATED IBC (test code = 47262) 496 UG/DL CALC TOTAL IBC (test code = 2076) 508 UG/DL CALC % IRON SAT (test code = 2078) 2 % CBC W/AUTO [id number] 00:00:00 Test Item Value Reference Range Interpretation Comments WBC (test code = 1001) 7.9 K/UL RBC (test code = 1002) 3.52 M/UL HEMOGLOBIN (test code = 1003) 6.9 G/DL HEMATOCRIT (test code = 1004) 24.1 % MCV (test code = 1005) 68.5 fL MCH (test code = 1006) 19.6 PG MCHC (test code = 1007) 28.6 G/DL RDW (test code = 1038) 23.5 % NEUTROPHILS (test code = 1008) 62.1 % LYMPHOCYTES (test code = 1010) 28.8 % MONOCYTES (test code = 1011) 5.6 % EOSINOPHILS (test code = 1012) 2.4 % BASOPHILS (test code = 1013) 1.1 % PLATELET COUNT (test code = 1015) 553 K/UL COMMENTS (test code = 1016) (NOTE) IRON BINDING CAPACITY AND IRON AND % [id number] 00:00:00 Test Item Value Reference Range Interpretation Comments IRON, SERUM (test code = 2) 12 UG/DL UNSATURATED IBC (test code = 14876) 496 UG/DL CALC TOTAL IBC (test code = 2076) 508 UG/DL CALC % IRON SAT (test code = 2078) 2 % CBC W/AUTO [id number] 00:00:00 Test Item Value Reference Range Interpretation Comments WBC (test code = 1001) 7.9 K/UL RBC (test code = 1002) 3.52 M/UL HEMOGLOBIN (test code = 1003) 6.9 G/DL HEMATOCRIT (test code = 1004) 24.1 % MCV (test code = 1005) 68.5 fL MCH (test code = 1006) 19.6 PG MCHC (test code = 1007) 28.6 G/DL RDW (test code = 1038) 23.5 % NEUTROPHILS (test code = 1008) 62.1 % LYMPHOCYTES (test code = 1010) 28.8 % MONOCYTES (test code = 1011) 5.6 % EOSINOPHILS (test code = 1012) 2.4 % BASOPHILS (test code = 1013) 1.1 % PLATELET COUNT (test code = 1015) 553 K/UL COMMENTS (test code = 1016) (NOTE) CBC W/AUTO [id number] 00:00:00 Test Item Value Reference Range Interpretation Comments WBC (test code = 1001) 7.9 K/UL RBC (test code = 1002) 3.52 M/UL HEMOGLOBIN (test code = 1003) 6.9 G/DL HEMATOCRIT (test code = 1004) 24.1 % MCV (test code = 1005) 68.5 fL MCH (test code = 1006) 19.6 PG MCHC (test code = 1007) 28.6 G/DL RDW (test code = 1038) 23.5 % NEUTROPHILS (test code = 1008) 62.1 % LYMPHOCYTES (test code = 1010) 28.8 % MONOCYTES (test code = 1011) 5.6 % EOSINOPHILS (test code = 1012) 2.4 % BASOPHILS (test code = 1013) 1.1 % PLATELET COUNT (test code = 1015) 553 K/UL COMMENTS (test code = 1016) (NOTE) CBC W/AUTO [id number] 00:00:00 Test Item Value Reference Range Interpretation Comments WBC (test code = 1001) 7.9 K/UL RBC (test code = 1002) 3.52 M/UL HEMOGLOBIN (test code = 1003) 6.9 G/DL HEMATOCRIT (test code = 1004) 24.1 % MCV (test code = 1005) 68.5 fL MCH (test code = 1006) 19.6 PG MCHC (test code = 1007) 28.6 G/DL RDW (test code = 1038) 23.5 % NEUTROPHILS (test code = 1008) 62.1 % LYMPHOCYTES (test code = 1010) 28.8 % MONOCYTES (test code = 1011) 5.6 % EOSINOPHILS (test code = 1012) 2.4 % BASOPHILS (test code = 1013) 1.1 % PLATELET COUNT (test code = 1015) 553 K/UL COMMENTS (test code = 1016) (NOTE) [id number] 00:00:00 Test Item Value Reference Range Interpretation Comments TSH (test code = 2821) 5.4 UIU/ML [id number] 00:00:00 Test Item Value Reference Range Interpretation Comments TSH (test code = 2821) 5.4 UIU/ML [id number] 00:00:00 Test Item Value Reference Range Interpretation Comments TSH (test code = 2821) 5.4 UIU/ML [id number] 00:00:00 Test Item Value Reference Range Interpretation Comments TSH (test code = 2821) 5.4 UIU/ML [id number] 00:00:00 Test Item Value Reference Range Interpretation Comments TSH (test code = 2821) 5.4 UIU/ML [id number] 00:00:00 Test Item Value Reference Range Interpretation Comments FERRITIN (test code = 2075) 2 NG/ML [id number] 00:00:00 Test Item Value Reference Range Interpretation Comments FERRITIN (test code = 5) 2 NG/ML IRON BINDING CAPACITY AND IRON AND % [id number] 00:00:00 Test Item Value Reference Range Interpretation Comments IRON, SERUM (test code = 2221) 12 UG/DL UNSATURATED IBC (test code = ) 496 UG/DL CALC TOTAL IBC (test code = 2076) 508 UG/DL CALC % IRON SAT (test code = 9) 2 % IRON BINDING CAPACITY AND IRON AND % [id number] 00:00:00 Test Item Value Reference Range Interpretation Comments IRON, SERUM (test code = 2) 12 UG/DL UNSATURATED IBC (test code = 05736) 496 UG/DL CALC TOTAL IBC (test code = 2076) 508 UG/DL CALC % IRON SAT (test code = 9) 2 % CBC W/AUTO [id number] 00:00:00 Test Item Value Reference Range Interpretation Comments WBC (test code = 1001) 7.9 K/UL RBC (test code = 1002) 3.52 M/UL HEMOGLOBIN (test code = 1003) 6.9 G/DL HEMATOCRIT (test code = 1004) 24.1 % MCV (test code = 1005) 68.5 fL MCH (test code = 1006) 19.6 PG MCHC (test code = 1007) 28.6 G/DL RDW (test code = 1038) 23.5 % NEUTROPHILS (test code = 1008) 62.1 % LYMPHOCYTES (test code = 1010) 28.8 % MONOCYTES (test code = 1011) 5.6 % EOSINOPHILS (test code = 1012) 2.4 % BASOPHILS (test code = 1013) 1.1 % PLATELET COUNT (test code = 1015) 553 K/UL COMMENTS (test code = 1016) (NOTE) CBC W/AUTO [id number] 00:00:00 Test Item Value Reference Range Interpretation Comments WBC (test code = 1001) 7.9 K/UL RBC (test code = 1002) 3.52 M/UL HEMOGLOBIN (test code = 1003) 6.9 G/DL HEMATOCRIT (test code = 1004) 24.1 % MCV (test code = 1005) 68.5 fL MCH (test code = 1006) 19.6 PG MCHC (test code = 1007) 28.6 G/DL RDW (test code = 1038) 23.5 % NEUTROPHILS (test code = 1008) 62.1 % LYMPHOCYTES (test code = 1010) 28.8 % MONOCYTES (test code = 1011) 5.6 % EOSINOPHILS (test code = 1012) 2.4 % BASOPHILS (test code = 1013) 1.1 % PLATELET COUNT (test code = 1015) 553 K/UL COMMENTS (test code = 1016) (NOTE) CBC W/AUTO [id number] 00:00:00 Test Item Value Reference Range Interpretation Comments WBC (test code = 1001) 7.9 K/UL RBC (test code = 1002) 3.52 M/UL HEMOGLOBIN (test code = 1003) 6.9 G/DL HEMATOCRIT (test code = 1004) 24.1 % MCV (test code = 1005) 68.5 fL MCH (test code = 1006) 19.6 PG MCHC (test code = 1007) 28.6 G/DL RDW (test code = 1038) 23.5 % NEUTROPHILS (test code = 1008) 62.1 % LYMPHOCYTES (test code = 1010) 28.8 % MONOCYTES (test code = 1011) 5.6 % EOSINOPHILS (test code = 1012) 2.4 % BASOPHILS (test code = 1013) 1.1 % PLATELET COUNT (test code = 1015) 553 K/UL COMMENTS (test code = 1016) (NOTE) [id number] 00:00:00 Test Item Value Reference Range Interpretation Comments TSH (test code = 2821) 5.4 UIU/ML [id number] 00:00:00 Test Item Value Reference Range Interpretation Comments TSH (test code = 2821) 5.4 UIU/ML [id number] 00:00:00 Test Item Value Reference Range Interpretation Comments TSH (test code = 2821) 5.4 UIU/ML [id number] 00:00:00 Test Item Value Reference Range Interpretation Comments FERRITIN (test code = 5) 2 NG/ML [id number] 00:00:00 Test Item Value Reference Range Interpretation Comments FERRITIN (test code = 5) 2 NG/ML IRON BINDING CAPACITY AND IRON AND % [id number] 00:00:00 Test Item Value Reference Range Interpretation Comments IRON, SERUM (test code = 2) 12 UG/DL UNSATURATED IBC (test code = 74659) 496 UG/DL CALC TOTAL IBC (test code = 2076) 508 UG/DL CALC % IRON SAT (test code = 9) 2 % IRON BINDING CAPACITY AND IRON AND % [id number] 00:00:00 Test Item Value Reference Range Interpretation Comments IRON, SERUM (test code = 2) 12 UG/DL UNSATURATED IBC (test code = 25313) 496 UG/DL CALC TOTAL IBC (test code = 7) 508 UG/DL CALC % IRON SAT (test code = 9) 2 % CBC W/AUTO [id number] 00:00:00 Test Item Value Reference Range Interpretation Comments WBC (test code = 1001) 7.9 K/UL RBC (test code = 1002) 3.52 M/UL HEMOGLOBIN (test code = 1003) 6.9 G/DL HEMATOCRIT (test code = 1004) 24.1 % MCV (test code = 1005) 68.5 fL MCH (test code = 1006) 19.6 PG MCHC (test code = 1007) 28.6 G/DL RDW (test code = 1038) 23.5 % NEUTROPHILS (test code = 1008) 62.1 % LYMPHOCYTES (test code = 1010) 28.8 % MONOCYTES (test code = 1011) 5.6 % EOSINOPHILS (test code = 1012) 2.4 % BASOPHILS (test code = 1013) 1.1 % PLATELET COUNT (test code = 1015) 553 K/UL COMMENTS (test code = 1016) (NOTE) CBC W/AUTO [id number] 00:00:00 Test Item Value Reference Range Interpretation Comments WBC (test code = 1001) 7.9 K/UL RBC (test code = 1002) 3.52 M/UL HEMOGLOBIN (test code = 1003) 6.9 G/DL HEMATOCRIT (test code = 1004) 24.1 % MCV (test code = 1005) 68.5 fL MCH (test code = 1006) 19.6 PG MCHC (test code = 1007) 28.6 G/DL RDW (test code = 1038) 23.5 % NEUTROPHILS (test code = 1008) 62.1 % LYMPHOCYTES (test code = 1010) 28.8 % MONOCYTES (test code = 1011) 5.6 % EOSINOPHILS (test code = 1012) 2.4 % BASOPHILS (test code = 1013) 1.1 % PLATELET COUNT (test code = 1015) 553 K/UL COMMENTS (test code = 1016) (NOTE) CBC W/AUTO [id number] 00:00:00 Test Item Value Reference Range Interpretation Comments WBC (test code = 1001) 7.9 K/UL RBC (test code = 1002) 3.52 M/UL HEMOGLOBIN (test code = 1003) 6.9 G/DL HEMATOCRIT (test code = 1004) 24.1 % MCV (test code = 1005) 68.5 fL MCH (test code = 1006) 19.6 PG MCHC (test code = 1007) 28.6 G/DL RDW (test code = 1038) 23.5 % NEUTROPHILS (test code = 1008) 62.1 % LYMPHOCYTES (test code = 1010) 28.8 % MONOCYTES (test code = 1011) 5.6 % EOSINOPHILS (test code = 1012) 2.4 % BASOPHILS (test code = 1013) 1.1 % PLATELET COUNT (test code = 1015) 553 K/UL COMMENTS (test code = 1016) (NOTE) [id number] 00:00:00 Test Item Value Reference Range Interpretation Comments TSH (test code = 2821) 5.4 UIU/ML [id number] 00:00:00 Test Item Value Reference Range Interpretation Comments TSH (test code = 2821) 5.4 UIU/ML [id number] 00:00:00 Test Item Value Reference Range Interpretation Comments TSH (test code = 2821) 5.4 UIU/ML [id number] 00:00:00 Test Item Value Reference Range Interpretation Comments FERRITIN (test code = 5) 2 NG/ML [id number] 00:00:00 Test Item Value Reference Range Interpretation Comments FERRITIN (test code = 2074) 2 NG/ML IRON BINDING CAPACITY AND IRON AND % [id number] 00:00:00 Test Item Value Reference Range Interpretation Comments IRON, SERUM (test code = 2221) 12 UG/DL UNSATURATED IBC (test code = ) 496 UG/DL CALC TOTAL IBC (test code = 2076) 508 UG/DL CALC % IRON SAT (test code = 9) 2 % IRON BINDING CAPACITY AND IRON AND % [id number] 00:00:00 Test Item Value Reference Range Interpretation Comments IRON, SERUM (test code = 2221) 12 UG/DL UNSATURATED IBC (test code = ) 496 UG/DL CALC TOTAL IBC (test code = 7) 508 UG/DL CALC % IRON SAT (test code = 9) 2 % CBC W/AUTO [id number] 00:00:00 Test Item Value Reference Range Interpretation Comments WBC (test code = 1001) 7.9 K/UL RBC (test code = 1002) 3.52 M/UL HEMOGLOBIN (test code = 1003) 6.9 G/DL HEMATOCRIT (test code = 1004) 24.1 % MCV (test code = 1005) 68.5 fL MCH (test code = 1006) 19.6 PG MCHC (test code = 1007) 28.6 G/DL RDW (test code = 1038) 23.5 % NEUTROPHILS (test code = 1008) 62.1 % LYMPHOCYTES (test code = 1010) 28.8 % MONOCYTES (test code = 1011) 5.6 % EOSINOPHILS (test code = 1012) 2.4 % BASOPHILS (test code = 1013) 1.1 % PLATELET COUNT (test code = 1015) 553 K/UL COMMENTS (test code = 1016) (NOTE) CBC W/AUTO [id number] 00:00:00 Test Item Value Reference Range Interpretation Comments WBC (test code = 1001) 7.9 K/UL RBC (test code = 1002) 3.52 M/UL HEMOGLOBIN (test code = 1003) 6.9 G/DL HEMATOCRIT (test code = 1004) 24.1 % MCV (test code = 1005) 68.5 fL MCH (test code = 1006) 19.6 PG MCHC (test code = 1007) 28.6 G/DL RDW (test code = 1038) 23.5 % NEUTROPHILS (test code = 1008) 62.1 % LYMPHOCYTES (test code = 1010) 28.8 % MONOCYTES (test code = 1011) 5.6 % EOSINOPHILS (test code = 1012) 2.4 % BASOPHILS (test code = 1013) 1.1 % PLATELET COUNT (test code = 1015) 553 K/UL COMMENTS (test code = 1016) (NOTE) CBC W/AUTO [id number] 00:00:00 Test Item Value Reference Range Interpretation Comments WBC (test code = 1001) 7.9 K/UL RBC (test code = 1002) 3.52 M/UL HEMOGLOBIN (test code = 1003) 6.9 G/DL HEMATOCRIT (test code = 1004) 24.1 % MCV (test code = 1005) 68.5 fL MCH (test code = 1006) 19.6 PG MCHC (test code = 1007) 28.6 G/DL RDW (test code = 1038) 23.5 % NEUTROPHILS (test code = 1008) 62.1 % LYMPHOCYTES (test code = 1010) 28.8 % MONOCYTES (test code = 1011) 5.6 % EOSINOPHILS (test code = 1012) 2.4 % BASOPHILS (test code = 1013) 1.1 % PLATELET COUNT (test code = 1015) 553 K/UL COMMENTS (test code = 1016) (NOTE) [id number] 00:00:00 Test Item Value Reference Range Interpretation Comments TSH (test code = 2821) 5.4 UIU/ML [id number] 00:00:00 Test Item Value Reference Range Interpretation Comments TSH (test code = 2821) 5.4 UIU/ML [id number] 00:00:00 Test Item Value Reference Range Interpretation Comments TSH (test code = 2821) 5.4 UIU/ML [id number] 00:00:00 Test Item Value Reference Range Interpretation Comments FERRITIN (test code = 5) 2 NG/ML [id number] 00:00:00 Test Item Value Reference Range Interpretation Comments FERRITIN (test code = 5) 2 NG/ML IRON BINDING CAPACITY AND IRON AND % [id number] 00:00:00 Test Item Value Reference Range Interpretation Comments IRON, SERUM (test code = 2221) 12 UG/DL UNSATURATED IBC (test code = ) 496 UG/DL CALC TOTAL IBC (test code = 7) 508 UG/DL CALC % IRON SAT (test code = 9) 2 % IRON BINDING CAPACITY AND IRON AND % [id number] 00:00:00 Test Item Value Reference Range Interpretation Comments IRON, SERUM (test code = 2221) 12 UG/DL UNSATURATED IBC (test code = 25954) 496 UG/DL CALC TOTAL IBC (test code = 7) 508 UG/DL CALC % IRON SAT (test code = 2078) 2 % CBC W/AUTO [id number] 00:00:00 Test Item Value Reference Range Interpretation Comments WBC (test code = 1001) 7.9 K/UL RBC (test code = 1002) 3.52 M/UL HEMOGLOBIN (test code = 1003) 6.9 G/DL HEMATOCRIT (test code = 1004) 24.1 % MCV (test code = 1005) 68.5 fL MCH (test code = 1006) 19.6 PG MCHC (test code = 1007) 28.6 G/DL RDW (test code = 1038) 23.5 % NEUTROPHILS (test code = 1008) 62.1 % LYMPHOCYTES (test code = 1010) 28.8 % MONOCYTES (test code = 1011) 5.6 % EOSINOPHILS (test code = 1012) 2.4 % BASOPHILS (test code = 1013) 1.1 % PLATELET COUNT (test code = 1015) 553 K/UL COMMENTS (test code = 1016) (NOTE) CBC W/AUTO [id number] 00:00:00 Test Item Value Reference Range Interpretation Comments WBC (test code = 1001) 7.9 K/UL RBC (test code = 1002) 3.52 M/UL HEMOGLOBIN (test code = 1003) 6.9 G/DL HEMATOCRIT (test code = 1004) 24.1 % MCV (test code = 1005) 68.5 fL MCH (test code = 1006) 19.6 PG MCHC (test code = 1007) 28.6 G/DL RDW (test code = 1038) 23.5 % NEUTROPHILS (test code = 1008) 62.1 % LYMPHOCYTES (test code = 1010) 28.8 % MONOCYTES (test code = 1011) 5.6 % EOSINOPHILS (test code = 1012) 2.4 % BASOPHILS (test code = 1013) 1.1 % PLATELET COUNT (test code = 1015) 553 K/UL COMMENTS (test code = 1016) (NOTE) [id number] 00:00:00 Test Item Value Reference Range Interpretation Comments FERRITIN (test code = 2075) 2 NG/ML CBC W/AUTO [id number] 00:00:00 Test Item Value Reference Range Interpretation Comments WBC (test code = 1001) 7.9 K/UL RBC (test code = 1002) 3.52 M/UL HEMOGLOBIN (test code = 1003) 6.9 G/DL HEMATOCRIT (test code = 1004) 24.1 % MCV (test code = 1005) 68.5 fL MCH (test code = 1006) 19.6 PG MCHC (test code = 1007) 28.6 G/DL RDW (test code = 1038) 23.5 % NEUTROPHILS (test code = 1008) 62.1 % LYMPHOCYTES (test code = 1010) 28.8 % MONOCYTES (test code = 1011) 5.6 % EOSINOPHILS (test code = 1012) 2.4 % BASOPHILS (test code = 1013) 1.1 % PLATELET COUNT (test code = 1015) 553 K/UL COMMENTS (test code = 1016) (NOTE) [id number] 00:00:00 Test Item Value Reference Range Interpretation Comments TSH (test code = 2821) 5.4 UIU/ML [id number] 00:00:00 Test Item Value Reference Range Interpretation Comments TSH (test code = 2821) 5.4 UIU/ML [id number] 00:00:00 Test Item Value Reference Range Interpretation Comments TSH (test code = 2821) 5.4 UIU/ML GLYCATED HEMOGLOBIN [REFLEX]2016-08-26 00:00:00 Test Item Value Reference Range Interpretation Comments GLYCATED HEMOGLOBIN (test code = 4.5 % 17768) AVERAGE BLOOD GLUCOSE (test code = 82 mg/dL 44175) GLYCATED HEMOGLOBIN [REFLEX]2016-08-26 00:00:00 Test Item Value Reference Range Interpretation Comments GLYCATED HEMOGLOBIN (test code = 4.5 % 61911) AVERAGE BLOOD GLUCOSE (test code = 82 mg/dL 40302) GLYCATED HEMOGLOBIN [REFLEX]2016-08-26 00:00:00 Test Item Value Reference Range Interpretation Comments GLYCATED HEMOGLOBIN (test code = 4.5 % 85670) AVERAGE BLOOD GLUCOSE (test code = 82 mg/dL 40508) GLYCATED HEMOGLOBIN [REFLEX]2016-08-26 00:00:00 Test Item Value Reference Range Interpretation Comments GLYCATED HEMOGLOBIN (test code = 4.5 % 05288) AVERAGE BLOOD GLUCOSE (test code = 82 mg/dL 05051) GLYCATED HEMOGLOBIN [REFLEX]2016-08-26 00:00:00 Test Item Value Reference Range Interpretation Comments GLYCATED HEMOGLOBIN (test code = 4.5 % 69993) AVERAGE BLOOD GLUCOSE (test code = 82 mg/dL 85364) GLYCATED HEMOGLOBIN [REFLEX]2016-08-26 00:00:00 Test Item Value Reference Range Interpretation Comments GLYCATED HEMOGLOBIN (test code = 4.5 % 13103) AVERAGE BLOOD GLUCOSE (test code = 82 mg/dL 53277) COMPREHENSIVE METABOLIC [id number] 00:00:00 Test Item Value Reference Range Interpretation Comments GLUCOSE (test code = 2217) 98 MG/DL BUN (test code = 2208) 11 MG/DL CREATININE (test code = 2214) 0.65 MG/DL eGFR AMER. (test code 135 ML/MIN/1.73 = 74501) eGFR NON- AMER. (test 117 ML/MIN/1.73 code = 14721) CALC BUN/CREAT (test code = 17 RATIO 2235) SODIUM (test code = 2231) 138 MEQ/L POTASSIUM (test code = 2228) 3.8 MEQ/L CHLORIDE (test code = 2215) 102 MEQ/L CARBON DIOXIDE (test code = 24 MEQ/L 2206) CALCIUM (test code = 2209) 8.4 MG/DL PROTEIN, TOTAL (test code = 7.6 G/DL 2228) ALBUMIN (test code = 2201) 4.2 G/DL CALC GLOBULIN (test code = 3.4 G/DL 2240) CALC A/G RATIO (test code = 1.2 RATIO 2234) BILIRUBIN, TOTAL (test code = 0.4 MG/DL 2206) ALKALINE PHOSPHATASE (test 68 U/L code = 2204) AST (test code = 2218) 19 U/L ALT (test code = 2219) 13 U/L COMPREHENSIVE METABOLIC [id number] 00:00:00 Test Item Value Reference Range Interpretation Comments GLUCOSE (test code = 2217) 98 MG/DL BUN (test code = 2208) 11 MG/DL CREATININE (test code = 2214) 0.65 MG/DL eGFR AMER. (test code 135 ML/MIN/1.73 = 33340) eGFR NON- AMER. (test 117 ML/MIN/1.73 code = 69445) CALC BUN/CREAT (test code = 17 RATIO 2235) SODIUM (test code = 2231) 138 MEQ/L POTASSIUM (test code = 2228) 3.8 MEQ/L CHLORIDE (test code = 2215) 102 MEQ/L CARBON DIOXIDE (test code = 24 MEQ/L 2206) CALCIUM (test code = 2209) 8.4 MG/DL PROTEIN, TOTAL (test code = 7.6 G/DL 2228) ALBUMIN (test code = 2201) 4.2 G/DL CALC GLOBULIN (test code = 3.4 G/DL 2240) CALC A/G RATIO (test code = 1.2 RATIO 2234) BILIRUBIN, TOTAL (test code = 0.4 MG/DL 2206) ALKALINE PHOSPHATASE (test 68 U/L code = 2204) AST (test code = 2218) 19 U/L ALT (test code = 2219) 13 U/L LIPID [id number] 00:00:00 Test Item Value Reference Range Interpretation Comments CHOLESTEROL (test code = 2210) 148 MG/DL TRIGLYCERIDES (test code = 2232) 103 MG/DL HDL CHOLESTEROL (test code = 2220) 40 MG/DL CALC LDL CHOL (test code = 2237) 87 MG/DL RISK RATIO LDL/HDL (test code = 2.19 RATIO 2238) CBC W/AUTO [id number] 00:00:00 Test Item Value Reference Range Interpretation Comments WBC (test code = 1001) 6.6 K/UL RBC (test code = 1002) 3.95 M/UL HEMOGLOBIN (test code = 1003) 5.5 G/DL HEMATOCRIT (test code = 1004) 22.4 % MCV (test code = 1005) 56.7 fL MCH (test code = 1006) 13.9 PG MCHC (test code = 1007) 24.6 G/DL RDW (test code = 1038) 20.6 % NEUTROPHILS (test code = 1008) 59.6 % LYMPHOCYTES (test code = 1010) 32.2 % MONOCYTES (test code = 1011) 4.8 % EOSINOPHILS (test code = 1012) 2.6 % BASOPHILS (test code = 1013) 0.8 % PLATELET COUNT (test code = 1015) 253 K/UL COMMENTS (test code = 1016) (NOTE) LIPID [id number] 00:00:00 Test Item Value Reference Range Interpretation Comments CHOLESTEROL (test code = 2210) 148 MG/DL TRIGLYCERIDES (test code = 2232) 103 MG/DL HDL CHOLESTEROL (test code = 2220) 40 MG/DL CALC LDL CHOL (test code = 2237) 87 MG/DL RISK RATIO LDL/HDL (test code = 2.19 RATIO 2238) CBC W/AUTO [id number] 00:00:00 Test Item Value Reference Range Interpretation Comments WBC (test code = 1001) 6.6 K/UL RBC (test code = 1002) 3.95 M/UL HEMOGLOBIN (test code = 1003) 5.5 G/DL HEMATOCRIT (test code = 1004) 22.4 % MCV (test code = 1005) 56.7 fL MCH (test code = 1006) 13.9 PG MCHC (test code = 1007) 24.6 G/DL RDW (test code = 1038) 20.6 % NEUTROPHILS (test code = 1008) 59.6 % LYMPHOCYTES (test code = 1010) 32.2 % MONOCYTES (test code = 1011) 4.8 % EOSINOPHILS (test code = 1012) 2.6 % BASOPHILS (test code = 1013) 0.8 % PLATELET COUNT (test code = 1015) 253 K/UL COMMENTS (test code = 1016) (NOTE) CBC W/AUTO [id number] 00:00:00 Test Item Value Reference Range Interpretation Comments WBC (test code = 1001) 6.6 K/UL RBC (test code = 1002) 3.95 M/UL HEMOGLOBIN (test code = 1003) 5.5 G/DL HEMATOCRIT (test code = 1004) 22.4 % MCV (test code = 1005) 56.7 fL MCH (test code = 1006) 13.9 PG MCHC (test code = 1007) 24.6 G/DL RDW (test code = 1038) 20.6 % NEUTROPHILS (test code = 1008) 59.6 % LYMPHOCYTES (test code = 1010) 32.2 % MONOCYTES (test code = 1011) 4.8 % EOSINOPHILS (test code = 1012) 2.6 % BASOPHILS (test code = 1013) 0.8 % PLATELET COUNT (test code = 1015) 253 K/UL COMMENTS (test code = 1016) (NOTE) CBC W/AUTO [id number] 00:00:00 Test Item Value Reference Range Interpretation Comments WBC (test code = 1001) 6.6 K/UL RBC (test code = 1002) 3.95 M/UL HEMOGLOBIN (test code = 1003) 5.5 G/DL HEMATOCRIT (test code = 1004) 22.4 % MCV (test code = 1005) 56.7 fL MCH (test code = 1006) 13.9 PG MCHC (test code = 1007) 24.6 G/DL RDW (test code = 1038) 20.6 % NEUTROPHILS (test code = 1008) 59.6 % LYMPHOCYTES (test code = 1010) 32.2 % MONOCYTES (test code = 1011) 4.8 % EOSINOPHILS (test code = 1012) 2.6 % BASOPHILS (test code = 1013) 0.8 % PLATELET COUNT (test code = 1015) 253 K/UL COMMENTS (test code = 1016) (NOTE) CBC W/AUTO [id number] 00:00:00 Test Item Value Reference Range Interpretation Comments WBC (test code = 1001) 6.6 K/UL RBC (test code = 1002) 3.95 M/UL HEMOGLOBIN (test code = 1003) 5.5 G/DL HEMATOCRIT (test code = 1004) 22.4 % MCV (test code = 1005) 56.7 fL MCH (test code = 1006) 13.9 PG MCHC (test code = 1007) 24.6 G/DL RDW (test code = 1038) 20.6 % NEUTROPHILS (test code = 1008) 59.6 % LYMPHOCYTES (test code = 1010) 32.2 % MONOCYTES (test code = 1011) 4.8 % EOSINOPHILS (test code = 1012) 2.6 % BASOPHILS (test code = 1013) 0.8 % PLATELET COUNT (test code = 1015) 253 K/UL COMMENTS (test code = 1016) (NOTE) HEMOGLOBIN [id number] 00:00:00 Test Item Value Reference Range Interpretation Comments HEMOGLOBIN A1c (test TEST NOT PERFORMED % code = 47539) HEMOGLOBIN [id number] 00:00:00 Test Item Value Reference Range Interpretation Comments HEMOGLOBIN A1c (test TEST NOT PERFORMED % code = 52959) HEMOGLOBIN [id number] 00:00:00 Test Item Value Reference Range Interpretation Comments HEMOGLOBIN A1c (test TEST NOT PERFORMED % code = 42659) THYROID II PROFILE (T3U, T4, T7, TSH)2016-08-25 00:00:00 Test Item Value Reference Range Interpretation Comments T3 UPTAKE (test code = 2817) 27.1 % T4 (THYROXINE) (test code = 2819) 4.2 UG/DL CALCULATED T7 (FTI) (test code = 1.14 2820) TSH (test code = 2821) 4.4 UIU/ML THYROID II PROFILE (T3U, T4, T7, TSH)2016-08-25 00:00:00 Test Item Value Reference Range Interpretation Comments T3 UPTAKE (test code = 2817) 27.1 % T4 (THYROXINE) (test code = 2819) 4.2 UG/DL CALCULATED T7 (FTI) (test code = 1.14 2820) TSH (test code = 2821) 4.4 UIU/ML HEMOGLOBIN [id number] 00:00:00 Test Item Value Reference Range Interpretation Comments HEMOGLOBIN A1c (test TEST NOT PERFORMED % code = 00146) HEMOGLOBIN [id number] 00:00:00 Test Item Value Reference Range Interpretation Comments HEMOGLOBIN A1c (test TEST NOT PERFORMED % code = 51467) THYROID II PROFILE (T3U, T4, T7, TSH)2016-08-25 00:00:00 Test Item Value Reference Range Interpretation Comments T3 UPTAKE (test code = 2817) 27.1 % T4 (THYROXINE) (test code = 2819) 4.2 UG/DL CALCULATED T7 (FTI) (test code = 1.14 2820) TSH (test code = 2821) 4.4 UIU/ML COMPREHENSIVE METABOLIC [id number] 00:00:00 Test Item Value Reference Range Interpretation Comments GLUCOSE (test code = 2217) 98 MG/DL BUN (test code = 2208) 11 MG/DL CREATININE (test code = 2214) 0.65 MG/DL eGFR AMER. (test code 135 ML/MIN/1.73 = 35597) eGFR NON- AMER. (test 117 ML/MIN/1.73 code = 68776) CALC BUN/CREAT (test code = 17 RATIO 2235) SODIUM (test code = 2231) 138 MEQ/L POTASSIUM (test code = 2228) 3.8 MEQ/L CHLORIDE (test code = 2215) 102 MEQ/L CARBON DIOXIDE (test code = 24 MEQ/L 2205) CALCIUM (test code = 2209) 8.4 MG/DL PROTEIN, TOTAL (test code = 7.6 G/DL 2228) ALBUMIN (test code = 2201) 4.2 G/DL CALC GLOBULIN (test code = 3.4 G/DL 2240) CALC A/G RATIO (test code = 1.2 RATIO 2234) BILIRUBIN, TOTAL (test code = 0.4 MG/DL 2206) ALKALINE PHOSPHATASE (test 68 U/L code = 2204) AST (test code = 2218) 19 U/L ALT (test code = 2219) 13 U/L COMPREHENSIVE METABOLIC [id number] 00:00:00 Test Item Value Reference Range Interpretation Comments GLUCOSE (test code = 2217) 98 MG/DL BUN (test code = 2208) 11 MG/DL CREATININE (test code = 2214) 0.65 MG/DL eGFR AMER. (test code 135 ML/MIN/1.73 = 50032) eGFR NON- AMER. (test 117 ML/MIN/1.73 code = 63662) CALC BUN/CREAT (test code = 17 RATIO 2235) SODIUM (test code = 2231) 138 MEQ/L POTASSIUM (test code = 2228) 3.8 MEQ/L CHLORIDE (test code = 2215) 102 MEQ/L CARBON DIOXIDE (test code = 24 MEQ/L 220) CALCIUM (test code = 2209) 8.4 MG/DL PROTEIN, TOTAL (test code = 7.6 G/DL 2228) ALBUMIN (test code = 2201) 4.2 G/DL CALC GLOBULIN (test code = 3.4 G/DL 224) CALC A/G RATIO (test code = 1.2 RATIO 2234) BILIRUBIN, TOTAL (test code = 0.4 MG/DL 2206) ALKALINE PHOSPHATASE (test 68 U/L code = 2204) AST (test code = 2218) 19 U/L ALT (test code = 2219) 13 U/L LIPID [id number] 00:00:00 Test Item Value Reference Range Interpretation Comments CHOLESTEROL (test code = 2210) 148 MG/DL TRIGLYCERIDES (test code = 2232) 103 MG/DL HDL CHOLESTEROL (test code = 2220) 40 MG/DL CALC LDL CHOL (test code = 2237) 87 MG/DL RISK RATIO LDL/HDL (test code = 2.19 RATIO 2238) LIPID [id number] 00:00:00 Test Item Value Reference Range Interpretation Comments CHOLESTEROL (test code = 2210) 148 MG/DL TRIGLYCERIDES (test code = 2232) 103 MG/DL HDL CHOLESTEROL (test code = 2220) 40 MG/DL CALC LDL CHOL (test code = 2237) 87 MG/DL RISK RATIO LDL/HDL (test code = 2.19 RATIO 2238) CBC W/AUTO [id number] 00:00:00 Test Item Value Reference Range Interpretation Comments WBC (test code = 1001) 6.6 K/UL RBC (test code = 1002) 3.95 M/UL HEMOGLOBIN (test code = 1003) 5.5 G/DL HEMATOCRIT (test code = 1004) 22.4 % MCV (test code = 1005) 56.7 fL MCH (test code = 1006) 13.9 PG MCHC (test code = 1007) 24.6 G/DL RDW (test code = 1038) 20.6 % NEUTROPHILS (test code = 1008) 59.6 % LYMPHOCYTES (test code = 1010) 32.2 % MONOCYTES (test code = 1011) 4.8 % EOSINOPHILS (test code = 1012) 2.6 % BASOPHILS (test code = 1013) 0.8 % PLATELET COUNT (test code = 1015) 253 K/UL COMMENTS (test code = 1016) (NOTE) CBC W/AUTO [id number] 00:00:00 Test Item Value Reference Range Interpretation Comments WBC (test code = 1001) 6.6 K/UL RBC (test code = 1002) 3.95 M/UL HEMOGLOBIN (test code = 1003) 5.5 G/DL HEMATOCRIT (test code = 1004) 22.4 % MCV (test code = 1005) 56.7 fL MCH (test code = 1006) 13.9 PG MCHC (test code = 1007) 24.6 G/DL RDW (test code = 1038) 20.6 % NEUTROPHILS (test code = 1008) 59.6 % LYMPHOCYTES (test code = 1010) 32.2 % MONOCYTES (test code = 1011) 4.8 % EOSINOPHILS (test code = 1012) 2.6 % BASOPHILS (test code = 1013) 0.8 % PLATELET COUNT (test code = 1015) 253 K/UL COMMENTS (test code = 1016) (NOTE) CBC W/AUTO [id number] 00:00:00 Test Item Value Reference Range Interpretation Comments WBC (test code = 1001) 6.6 K/UL RBC (test code = 1002) 3.95 M/UL HEMOGLOBIN (test code = 1003) 5.5 G/DL HEMATOCRIT (test code = 1004) 22.4 % MCV (test code = 1005) 56.7 fL MCH (test code = 1006) 13.9 PG MCHC (test code = 1007) 24.6 G/DL RDW (test code = 1038) 20.6 % NEUTROPHILS (test code = 1008) 59.6 % LYMPHOCYTES (test code = 1010) 32.2 % MONOCYTES (test code = 1011) 4.8 % EOSINOPHILS (test code = 1012) 2.6 % BASOPHILS (test code = 1013) 0.8 % PLATELET COUNT (test code = 1015) 253 K/UL COMMENTS (test code = 1016) (NOTE) HEMOGLOBIN [id number] 00:00:00 Test Item Value Reference Range Interpretation Comments HEMOGLOBIN A1c (test TEST NOT PERFORMED % code = 97387) HEMOGLOBIN [id number] 00:00:00 Test Item Value Reference Range Interpretation Comments HEMOGLOBIN A1c (test TEST NOT PERFORMED % code = 85570) HEMOGLOBIN [id number] 00:00:00 Test Item Value Reference Range Interpretation Comments HEMOGLOBIN A1c (test TEST NOT PERFORMED % code = 55071) THYROID II PROFILE (T3U, T4, T7, TSH)[id number] 00:00:00 Test Item Value Reference Range Interpretation Comments T3 UPTAKE (test code = 2817) 27.1 % T4 (THYROXINE) (test code = 2819) 4.2 UG/DL CALCULATED T7 (FTI) (test code = 1.14 2820) TSH (test code = 2821) 4.4 UIU/ML THYROID II PROFILE (T3U, T4, T7, TSH)[id number] 00:00:00 Test Item Value Reference Range Interpretation Comments T3 UPTAKE (test code = 2817) 27.1 % T4 (THYROXINE) (test code = 2819) 4.2 UG/DL CALCULATED T7 (FTI) (test code = 1.14 2820) TSH (test code = 2821) 4.4 UIU/ML COMPREHENSIVE METABOLIC [id number] 00:00:00 Test Item Value Reference Range Interpretation Comments GLUCOSE (test code = 2217) 98 MG/DL BUN (test code = 2208) 11 MG/DL CREATININE (test code = 2214) 0.65 MG/DL eGFR AMER. (test code 135 ML/MIN/1.73 = 55127) eGFR NON- AMER. (test 117 ML/MIN/1.73 code = 24912) CALC BUN/CREAT (test code = 17 RATIO 2235) SODIUM (test code = 2231) 138 MEQ/L POTASSIUM (test code = 2228) 3.8 MEQ/L CHLORIDE (test code = 2215) 102 MEQ/L CARBON DIOXIDE (test code = 24 MEQ/L 2206) CALCIUM (test code = 2209) 8.4 MG/DL PROTEIN, TOTAL (test code = 7.6 G/DL 222) ALBUMIN (test code = 2201) 4.2 G/DL CALC GLOBULIN (test code = 3.4 G/DL 2240) CALC A/G RATIO (test code = 1.2 RATIO 2234) BILIRUBIN, TOTAL (test code = 0.4 MG/DL 220) ALKALINE PHOSPHATASE (test 68 U/L code = 2204) AST (test code = 2218) 19 U/L ALT (test code = 2219) 13 U/L COMPREHENSIVE METABOLIC [id number] 00:00:00 Test Item Value Reference Range Interpretation Comments GLUCOSE (test code = 2217) 98 MG/DL BUN (test code = 2208) 11 MG/DL CREATININE (test code = 2214) 0.65 MG/DL eGFR AMER. (test code 135 ML/MIN/1.73 = 72420) eGFR NON- AMER. (test 117 ML/MIN/1.73 code = 44975) CALC BUN/CREAT (test code = 17 RATIO 2235) SODIUM (test code = 2231) 138 MEQ/L POTASSIUM (test code = 2228) 3.8 MEQ/L CHLORIDE (test code = 2215) 102 MEQ/L CARBON DIOXIDE (test code = 24 MEQ/L 2205) CALCIUM (test code = 2209) 8.4 MG/DL PROTEIN, TOTAL (test code = 7.6 G/DL 2228) ALBUMIN (test code = 2201) 4.2 G/DL CALC GLOBULIN (test code = 3.4 G/DL 2240) CALC A/G RATIO (test code = 1.2 RATIO 2234) BILIRUBIN, TOTAL (test code = 0.4 MG/DL 2206) ALKALINE PHOSPHATASE (test 68 U/L code = 2204) AST (test code = 2218) 19 U/L ALT (test code = 2219) 13 U/L LIPID [id number] 00:00:00 Test Item Value Reference Range Interpretation Comments CHOLESTEROL (test code = 2210) 148 MG/DL TRIGLYCERIDES (test code = 2232) 103 MG/DL HDL CHOLESTEROL (test code = 2220) 40 MG/DL CALC LDL CHOL (test code = 2237) 87 MG/DL RISK RATIO LDL/HDL (test code = 2.19 RATIO 2238) LIPID [id number] 00:00:00 Test Item Value Reference Range Interpretation Comments CHOLESTEROL (test code = 2210) 148 MG/DL TRIGLYCERIDES (test code = 2232) 103 MG/DL HDL CHOLESTEROL (test code = 2220) 40 MG/DL CALC LDL CHOL (test code = 2237) 87 MG/DL RISK RATIO LDL/HDL (test code = 2.19 RATIO 2238) CBC W/AUTO [id number] 00:00:00 Test Item Value Reference Range Interpretation Comments WBC (test code = 1001) 6.6 K/UL RBC (test code = 1002) 3.95 M/UL HEMOGLOBIN (test code = 1003) 5.5 G/DL HEMATOCRIT (test code = 1004) 22.4 % MCV (test code = 1005) 56.7 fL MCH (test code = 1006) 13.9 PG MCHC (test code = 1007) 24.6 G/DL RDW (test code = 1038) 20.6 % NEUTROPHILS (test code = 1008) 59.6 % LYMPHOCYTES (test code = 1010) 32.2 % MONOCYTES (test code = 1011) 4.8 % EOSINOPHILS (test code = 1012) 2.6 % BASOPHILS (test code = 1013) 0.8 % PLATELET COUNT (test code = 1015) 253 K/UL COMMENTS (test code = 1016) (NOTE) CBC W/AUTO [id number] 00:00:00 Test Item Value Reference Range Interpretation Comments WBC (test code = 1001) 6.6 K/UL RBC (test code = 1002) 3.95 M/UL HEMOGLOBIN (test code = 1003) 5.5 G/DL HEMATOCRIT (test code = 1004) 22.4 % MCV (test code = 1005) 56.7 fL MCH (test code = 1006) 13.9 PG MCHC (test code = 1007) 24.6 G/DL RDW (test code = 1038) 20.6 % NEUTROPHILS (test code = 1008) 59.6 % LYMPHOCYTES (test code = 1010) 32.2 % MONOCYTES (test code = 1011) 4.8 % EOSINOPHILS (test code = 1012) 2.6 % BASOPHILS (test code = 1013) 0.8 % PLATELET COUNT (test code = 1015) 253 K/UL COMMENTS (test code = 1016) (NOTE) CBC W/AUTO [id number] 00:00:00 Test Item Value Reference Range Interpretation Comments WBC (test code = 1001) 6.6 K/UL RBC (test code = 1002) 3.95 M/UL HEMOGLOBIN (test code = 1003) 5.5 G/DL HEMATOCRIT (test code = 1004) 22.4 % MCV (test code = 1005) 56.7 fL MCH (test code = 1006) 13.9 PG MCHC (test code = 1007) 24.6 G/DL RDW (test code = 1038) 20.6 % NEUTROPHILS (test code = 1008) 59.6 % LYMPHOCYTES (test code = 1010) 32.2 % MONOCYTES (test code = 1011) 4.8 % EOSINOPHILS (test code = 1012) 2.6 % BASOPHILS (test code = 1013) 0.8 % PLATELET COUNT (test code = 1015) 253 K/UL COMMENTS (test code = 1016) (NOTE) HEMOGLOBIN [id number] 00:00:00 Test Item Value Reference Range Interpretation Comments HEMOGLOBIN A1c (test TEST NOT PERFORMED % code = 05276) HEMOGLOBIN [id number] 00:00:00 Test Item Value Reference Range Interpretation Comments HEMOGLOBIN A1c (test TEST NOT PERFORMED % code = 51104) HEMOGLOBIN [id number] 00:00:00 Test Item Value Reference Range Interpretation Comments HEMOGLOBIN A1c (test TEST NOT PERFORMED % code = 11997) THYROID II PROFILE (T3U, T4, T7, TSH)2016-08-25 00:00:00 Test Item Value Reference Range Interpretation Comments T3 UPTAKE (test code = 2817) 27.1 % T4 (THYROXINE) (test code = 2819) 4.2 UG/DL CALCULATED T7 (FTI) (test code = 1.14 2820) TSH (test code = 2821) 4.4 UIU/ML THYROID II PROFILE (T3U, T4, T7, TSH)2016-08-25 00:00:00 Test Item Value Reference Range Interpretation Comments T3 UPTAKE (test code = 2817) 27.1 % T4 (THYROXINE) (test code = 2819) 4.2 UG/DL CALCULATED T7 (FTI) (test code = 1.14 2820) TSH (test code = 2821) 4.4 UIU/ML COMPREHENSIVE METABOLIC [id number] 00:00:00 Test Item Value Reference Range Interpretation Comments GLUCOSE (test code = 2217) 98 MG/DL BUN (test code = 2208) 11 MG/DL CREATININE (test code = 2214) 0.65 MG/DL eGFR AMER. (test code 135 ML/MIN/1.73 = 65771) eGFR NON- AMER. (test 117 ML/MIN/1.73 code = 73579) CALC BUN/CREAT (test code = 17 RATIO 2235) SODIUM (test code = 2231) 138 MEQ/L POTASSIUM (test code = 2228) 3.8 MEQ/L CHLORIDE (test code = 2215) 102 MEQ/L CARBON DIOXIDE (test code = 24 MEQ/L 2205) CALCIUM (test code = 2209) 8.4 MG/DL PROTEIN, TOTAL (test code = 7.6 G/DL 2228) ALBUMIN (test code = 2201) 4.2 G/DL CALC GLOBULIN (test code = 3.4 G/DL 2239) CALC A/G RATIO (test code = 1.2 RATIO 2234) BILIRUBIN, TOTAL (test code = 0.4 MG/DL 2206) ALKALINE PHOSPHATASE (test 68 U/L code = 2204) AST (test code = 2218) 19 U/L ALT (test code = 2219) 13 U/L COMPREHENSIVE METABOLIC [id number] 00:00:00 Test Item Value Reference Range Interpretation Comments GLUCOSE (test code = 2217) 98 MG/DL BUN (test code = 2208) 11 MG/DL CREATININE (test code = 2214) 0.65 MG/DL eGFR AMER. (test code 135 ML/MIN/1.73 = 52208) eGFR NON- AMER. (test 117 ML/MIN/1.73 code = 28727) CALC BUN/CREAT (test code = 17 RATIO 2235) SODIUM (test code = 2231) 138 MEQ/L POTASSIUM (test code = 2228) 3.8 MEQ/L CHLORIDE (test code = 2215) 102 MEQ/L CARBON DIOXIDE (test code = 24 MEQ/L 220) CALCIUM (test code = 2209) 8.4 MG/DL PROTEIN, TOTAL (test code = 7.6 G/DL 2228) ALBUMIN (test code = 2201) 4.2 G/DL CALC GLOBULIN (test code = 3.4 G/DL 2240) CALC A/G RATIO (test code = 1.2 RATIO 2234) BILIRUBIN, TOTAL (test code = 0.4 MG/DL 2206) ALKALINE PHOSPHATASE (test 68 U/L code = 2204) AST (test code = 2218) 19 U/L ALT (test code = 2219) 13 U/L LIPID [id number] 00:00:00 Test Item Value Reference Range Interpretation Comments CHOLESTEROL (test code = 2210) 148 MG/DL TRIGLYCERIDES (test code = 2232) 103 MG/DL HDL CHOLESTEROL (test code = 2220) 40 MG/DL CALC LDL CHOL (test code = 2237) 87 MG/DL RISK RATIO LDL/HDL (test code = 2.19 RATIO 2238) LIPID [id number] 00:00:00 Test Item Value Reference Range Interpretation Comments CHOLESTEROL (test code = 2210) 148 MG/DL TRIGLYCERIDES (test code = 2232) 103 MG/DL HDL CHOLESTEROL (test code = 2220) 40 MG/DL CALC LDL CHOL (test code = 2237) 87 MG/DL RISK RATIO LDL/HDL (test code = 2.19 RATIO 2238) CBC W/AUTO [id number] 00:00:00 Test Item Value Reference Range Interpretation Comments WBC (test code = 1001) 6.6 K/UL RBC (test code = 1002) 3.95 M/UL HEMOGLOBIN (test code = 1003) 5.5 G/DL HEMATOCRIT (test code = 1004) 22.4 % MCV (test code = 1005) 56.7 fL MCH (test code = 1006) 13.9 PG MCHC (test code = 1007) 24.6 G/DL RDW (test code = 1038) 20.6 % NEUTROPHILS (test code = 1008) 59.6 % LYMPHOCYTES (test code = 1010) 32.2 % MONOCYTES (test code = 1011) 4.8 % EOSINOPHILS (test code = 1012) 2.6 % BASOPHILS (test code = 1013) 0.8 % PLATELET COUNT (test code = 1015) 253 K/UL COMMENTS (test code = 1016) (NOTE) CBC W/AUTO [id number] 00:00:00 Test Item Value Reference Range Interpretation Comments WBC (test code = 1001) 6.6 K/UL RBC (test code = 1002) 3.95 M/UL HEMOGLOBIN (test code = 1003) 5.5 G/DL HEMATOCRIT (test code = 1004) 22.4 % MCV (test code = 1005) 56.7 fL MCH (test code = 1006) 13.9 PG MCHC (test code = 1007) 24.6 G/DL RDW (test code = 1038) 20.6 % NEUTROPHILS (test code = 1008) 59.6 % LYMPHOCYTES (test code = 1010) 32.2 % MONOCYTES (test code = 1011) 4.8 % EOSINOPHILS (test code = 1012) 2.6 % BASOPHILS (test code = 1013) 0.8 % PLATELET COUNT (test code = 1015) 253 K/UL COMMENTS (test code = 1016) (NOTE) CBC W/AUTO [id number] 00:00:00 Test Item Value Reference Range Interpretation Comments WBC (test code = 1001) 6.6 K/UL RBC (test code = 1002) 3.95 M/UL HEMOGLOBIN (test code = 1003) 5.5 G/DL HEMATOCRIT (test code = 1004) 22.4 % MCV (test code = 1005) 56.7 fL MCH (test code = 1006) 13.9 PG MCHC (test code = 1007) 24.6 G/DL RDW (test code = 1038) 20.6 % NEUTROPHILS (test code = 1008) 59.6 % LYMPHOCYTES (test code = 1010) 32.2 % MONOCYTES (test code = 1011) 4.8 % EOSINOPHILS (test code = 1012) 2.6 % BASOPHILS (test code = 1013) 0.8 % PLATELET COUNT (test code = 1015) 253 K/UL COMMENTS (test code = 1016) (NOTE) HEMOGLOBIN [id number] 00:00:00 Test Item Value Reference Range Interpretation Comments HEMOGLOBIN A1c (test TEST NOT PERFORMED % code = 67701) HEMOGLOBIN [id number] 00:00:00 Test Item Value Reference Range Interpretation Comments HEMOGLOBIN A1c (test TEST NOT PERFORMED % code = 04023) HEMOGLOBIN [id number] 00:00:00 Test Item Value Reference Range Interpretation Comments HEMOGLOBIN A1c (test TEST NOT PERFORMED % code = 97614) THYROID II PROFILE (T3U, T4, T7, TSH)2016-08-25 00:00:00 Test Item Value Reference Range Interpretation Comments T3 UPTAKE (test code = 2817) 27.1 % T4 (THYROXINE) (test code = 2819) 4.2 UG/DL CALCULATED T7 (FTI) (test code = 1.14 2820) TSH (test code = 2821) 4.4 UIU/ML THYROID II PROFILE (T3U, T4, T7, TSH)2016-08-25 00:00:00 Test Item Value Reference Range Interpretation Comments T3 UPTAKE (test code = 2817) 27.1 % T4 (THYROXINE) (test code = 2819) 4.2 UG/DL CALCULATED T7 (FTI) (test code = 1.14 2820) TSH (test code = 2821) 4.4 UIU/ML COMPREHENSIVE METABOLIC [id number] 00:00:00 Test Item Value Reference Range Interpretation Comments GLUCOSE (test code = 2217) 98 MG/DL BUN (test code = 2208) 11 MG/DL CREATININE (test code = 2214) 0.65 MG/DL eGFR AMER. (test code 135 ML/MIN/1.73 = 21279) eGFR NON- AMER. (test 117 ML/MIN/1.73 code = 49622) CALC BUN/CREAT (test code = 17 RATIO 2235) SODIUM (test code = 2231) 138 MEQ/L POTASSIUM (test code = 2228) 3.8 MEQ/L CHLORIDE (test code = 2215) 102 MEQ/L CARBON DIOXIDE (test code = 24 MEQ/L 2205) CALCIUM (test code = 2209) 8.4 MG/DL PROTEIN, TOTAL (test code = 7.6 G/DL 2228) ALBUMIN (test code = 2201) 4.2 G/DL CALC GLOBULIN (test code = 3.4 G/DL 2240) CALC A/G RATIO (test code = 1.2 RATIO 2233) BILIRUBIN, TOTAL (test code = 0.4 MG/DL 2206) ALKALINE PHOSPHATASE (test 68 U/L code = 2204) AST (test code = 2218) 19 U/L ALT (test code = 2219) 13 U/L COMPREHENSIVE METABOLIC [id number] 00:00:00 Test Item Value Reference Range Interpretation Comments GLUCOSE (test code = 2217) 98 MG/DL BUN (test code = 2208) 11 MG/DL CREATININE (test code = 2214) 0.65 MG/DL eGFR AMER. (test code 135 ML/MIN/1.73 = 02661) eGFR NON- AMER. (test 117 ML/MIN/1.73 code = 71079) CALC BUN/CREAT (test code = 17 RATIO 2235) SODIUM (test code = 2231) 138 MEQ/L POTASSIUM (test code = 2228) 3.8 MEQ/L CHLORIDE (test code = 2215) 102 MEQ/L CARBON DIOXIDE (test code = 24 MEQ/L 2205) CALCIUM (test code = 2209) 8.4 MG/DL PROTEIN, TOTAL (test code = 7.6 G/DL 2228) ALBUMIN (test code = 220) 4.2 G/DL CALC GLOBULIN (test code = 3.4 G/DL 2239) CALC A/G RATIO (test code = 1.2 RATIO 2233) BILIRUBIN, TOTAL (test code = 0.4 MG/DL 2206) ALKALINE PHOSPHATASE (test 68 U/L code = 2204) AST (test code = 2218) 19 U/L ALT (test code = 2219) 13 U/L LIPID [id number] 00:00:00 Test Item Value Reference Range Interpretation Comments CHOLESTEROL (test code = 2210) 148 MG/DL TRIGLYCERIDES (test code = 2232) 103 MG/DL HDL CHOLESTEROL (test code = 2220) 40 MG/DL CALC LDL CHOL (test code = 2237) 87 MG/DL RISK RATIO LDL/HDL (test code = 2.19 RATIO 2238) LIPID [id number] 00:00:00 Test Item Value Reference Range Interpretation Comments CHOLESTEROL (test code = 2210) 148 MG/DL TRIGLYCERIDES (test code = 2232) 103 MG/DL HDL CHOLESTEROL (test code = 2220) 40 MG/DL CALC LDL CHOL (test code = 2237) 87 MG/DL RISK RATIO LDL/HDL (test code = 2.19 RATIO 2238) CBC W/AUTO [id number] 00:00:00 Test Item Value Reference Range Interpretation Comments WBC (test code = 1001) 6.6 K/UL RBC (test code = 1002) 3.95 M/UL HEMOGLOBIN (test code = 1003) 5.5 G/DL HEMATOCRIT (test code = 1004) 22.4 % MCV (test code = 1005) 56.7 fL MCH (test code = 1006) 13.9 PG MCHC (test code = 1007) 24.6 G/DL RDW (test code = 1038) 20.6 % NEUTROPHILS (test code = 1008) 59.6 % LYMPHOCYTES (test code = 1010) 32.2 % MONOCYTES (test code = 1011) 4.8 % EOSINOPHILS (test code = 1012) 2.6 % BASOPHILS (test code = 1013) 0.8 % PLATELET COUNT (test code = 1015) 253 K/UL COMMENTS (test code = 1016) (NOTE) CBC W/AUTO [id number] 00:00:00 Test Item Value Reference Range Interpretation Comments WBC (test code = 1001) 6.6 K/UL RBC (test code = 1002) 3.95 M/UL HEMOGLOBIN (test code = 1003) 5.5 G/DL HEMATOCRIT (test code = 1004) 22.4 % MCV (test code = 1005) 56.7 fL MCH (test code = 1006) 13.9 PG MCHC (test code = 1007) 24.6 G/DL RDW (test code = 1038) 20.6 % NEUTROPHILS (test code = 1008) 59.6 % LYMPHOCYTES (test code = 1010) 32.2 % MONOCYTES (test code = 1011) 4.8 % EOSINOPHILS (test code = 1012) 2.6 % BASOPHILS (test code = 1013) 0.8 % PLATELET COUNT (test code = 1015) 253 K/UL COMMENTS (test code = 1016) (NOTE) CBC W/AUTO [id number] 00:00:00 Test Item Value Reference Range Interpretation Comments WBC (test code = 1001) 6.6 K/UL RBC (test code = 1002) 3.95 M/UL HEMOGLOBIN (test code = 1003) 5.5 G/DL HEMATOCRIT (test code = 1004) 22.4 % MCV (test code = 1005) 56.7 fL MCH (test code = 1006) 13.9 PG MCHC (test code = 1007) 24.6 G/DL RDW (test code = 1038) 20.6 % NEUTROPHILS (test code = 1008) 59.6 % LYMPHOCYTES (test code = 1010) 32.2 % MONOCYTES (test code = 1011) 4.8 % EOSINOPHILS (test code = 1012) 2.6 % BASOPHILS (test code = 1013) 0.8 % PLATELET COUNT (test code = 1015) 253 K/UL COMMENTS (test code = 1016) (NOTE) HEMOGLOBIN [id number] 00:00:00 Test Item Value Reference Range Interpretation Comments HEMOGLOBIN A1c (test TEST NOT PERFORMED % code = 46802) HEMOGLOBIN [id number] 00:00:00 Test Item Value Reference Range Interpretation Comments HEMOGLOBIN A1c (test TEST NOT PERFORMED % code = 62320) HEMOGLOBIN [id number] 00:00:00 Test Item Value Reference Range Interpretation Comments HEMOGLOBIN A1c (test TEST NOT PERFORMED % code = 27414) THYROID II PROFILE (T3U, T4, T7, TSH)2016-08-25 00:00:00 Test Item Value Reference Range Interpretation Comments T3 UPTAKE (test code = 2817) 27.1 % T4 (THYROXINE) (test code = 2819) 4.2 UG/DL CALCULATED T7 (FTI) (test code = 1.14 2820) TSH (test code = 2821) 4.4 UIU/ML THYROID II PROFILE (T3U, T4, T7, TSH)2016-08-25 00:00:00 Test Item Value Reference Range Interpretation Comments T3 UPTAKE (test code = 2817) 27.1 % T4 (THYROXINE) (test code = 2819) 4.2 UG/DL CALCULATED T7 (FTI) (test code = 1.14 2820) TSH (test code = 2821) 4.4 UIU/ML COMPREHENSIVE METABOLIC [id number] 00:00:00 Test Item Value Reference Range Interpretation Comments GLUCOSE (test code = 2217) 98 MG/DL BUN (test code = 2208) 11 MG/DL CREATININE (test code = 2214) 0.65 MG/DL eGFR AMER. (test code 135 ML/MIN/1.73 = 02811) eGFR NON- AMER. (test 117 ML/MIN/1.73 code = 63034) CALC BUN/CREAT (test code = 17 RATIO 2235) SODIUM (test code = 2231) 138 MEQ/L POTASSIUM (test code = 2228) 3.8 MEQ/L CHLORIDE (test code = 2215) 102 MEQ/L CARBON DIOXIDE (test code = 24 MEQ/L 2205) CALCIUM (test code = 220) 8.4 MG/DL PROTEIN, TOTAL (test code = 7.6 G/DL 2228) ALBUMIN (test code = 2201) 4.2 G/DL CALC GLOBULIN (test code = 3.4 G/DL 2239) CALC A/G RATIO (test code = 1.2 RATIO 2233) BILIRUBIN, TOTAL (test code = 0.4 MG/DL 2206) ALKALINE PHOSPHATASE (test 68 U/L code = 220) AST (test code = 2218) 19 U/L ALT (test code = 2219) 13 U/L LIPID [id number] 00:00:00 Test Item Value Reference Range Interpretation Comments CHOLESTEROL (test code = 2210) 148 MG/DL TRIGLYCERIDES (test code = 2232) 103 MG/DL HDL CHOLESTEROL (test code = 2220) 40 MG/DL CALC LDL CHOL (test code = 2237) 87 MG/DL RISK RATIO LDL/HDL (test code = 2.19 RATIO 8)
[2023-05-09 11:44] LABS: Absolute Lymphocytes (CBC) 2.1 K/uL (0.7-4.9); Hematocrit 46.5 % (36.0-45.0); Lymphocytes % 38.6 % (15.3-44.8); MPV 9.7 fL (7.6-11.3)
[2023-05-09] MEDS ORDERED: KETOROLAC 30 MG/ML INJ ONE (11:50)
[2023-05-09] MEDS ORDERED: NA CHLORIDE 0.9% 1,000 ML ONE (11:50)
[2023-05-09] MEDS ORDERED: DIPHENHYDRAMINE 50 MG/ML VIAL ONE (11:50)
[2023-05-09] MEDS ORDERED: METOCLOPRAMIDE 10 MG/2mL INJ ONE (11:50)
[2023-05-09] MEDS ORDERED: NA CHLORIDE 0.9% 50 ML ONE (11:51)
[2023-05-09 12:01] LABS: Albumin 3.3 g/dL (3.4-5.0); Bilirubin Total 0.8 mg/dL (0.2-1.0); Potassium 3.9 mEq/L (3.5-5.1); Protein, Total 7.9 g/dL (6.4-8.2)
--- NOTE | 2023-05-09 12:51 | RAD REPORT ---
EXAM DESCRIPTION: CT - Head Brain Wo Cont - 05/09/2023 11:53 am CLINICAL HISTORY: Headache COMPARISON: none TECHNIQUE: Computed axial tomography of the head was obtained. IV contrast was not requested. All CT scans are performed using dose optimization technique as appropriate and may include automated exposure control or mA/KV adjustment according to patient size. FINDINGS: The patient was unable to remove her earrings. There is artifact which limits evaluation p ortions of the left temporal lobe, left cerebellum and brainstem. An intracranial bleed is not seen The ventricles are normal in caliber No significant hypodense areas within the brain visualized No extra-axial fluid collection is noted. Fluid within the sinuses/ mastoids is not seen IMPRESSION: No gross intracranial abnormality seen If patient's symptoms persist MRI of the brain would be recommended
--- NOTE | 2023-05-09 12:57 | RAD REPORT ---
EXAM DESCRIPTION: Hiral Angio05/09/2023 12:47 pm CLINICAL HISTORY: Headache COMPARISON: None TECHNIQUE: 100 cc Isovue 370 was administered intravenously. 3D MIP reconstruction performed All CT scans are performed using dose optimization technique as appropriate and may include automated exposure control or mA/KV adjustment according to patient size. FINDINGS: Mild plaque is present within common carotid, internal carotid and external carotid arter ies bilaterally The vertebral arteries are unremarkable No significant stenosis. No dissection seen. Thyromegaly IMPRESSION: Mild plaque within the carotid arteries Thyromegaly NASCET criteria used. Mild 0-49% stenosis Moderate 50-69% stenosis Severe 70-99% stenosis
--- NOTE | 2023-05-09 13:01 | RAD REPORT ---
EXAM DESCRIPTION: CTHead angio05/09/2023 12:46 pm CLINICAL HISTORY: Headache COMPARISON: None TECHNIQUE: 100 cc Isovue [address] angiogram of the head was obtained. 3D MIPS reconstruction performed. All CT scans are performed using dose optimization technique as appropriate and may include automated exposure control or mA/KV adjustment according to patient size. FINDINGS: The basilar, anterior cerebral, middle cerebral and posterior cerebral arteries do not dem onstrate a significant abnormality Mild calcified plaque distal internal carotid arteries An aneurysm is not seen A significant stenosis is not noted. No large vessel occlusion IMPRESSION: No significant abnormality is displayed
--- NOTE | 2023-05-09 13:13 | EDPHYS ---
Physician Documentation [facility] Name: Charity Colon Age: 38 yrs Sex: Female : 1985 Arrival Date: 05/09/2023 Time: 11:09 Bed 17 Private MD: RANDA Physician Chuy Lancaster HPI: 05/09 11:22 This 38 yrs old Female presents to ER via Wheelchair with complaints of essence Headache. 11:22 The patient complains of pain to the top of head, forehead, right mosque, left mosque, essence left frontal area, left side of the back of head, left temporal area, left occipital area, left base of the skull, right frontal area, right side of the back of head, right occipital area and right base of the skull. The patient describes the headache as a pressure. Onset: The symptoms/episode began/occurred just prior to arrival, this morning. Associated signs and symptoms: Pertinent positives: nausea. Severity of symptoms: At its worst the pain was moderate, in the emergency department the pain is unchanged. Headache History: The patient has had previous headaches and this one is similar to previous episodes. The symptoms are alleviated by nothing. the symptoms are aggravated by nothing. The patient has not experienced similar symptoms in the past. 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 - Social history:: Smoking status: Patient denies any tobacco usage or history of. ROS: 11:23 Constitutional: Negative for fever, chills, and weight loss, Eyes: Negative for injury, essence pain, redness, and discharge, ENT: Negative for injury, pain, and discharge, Neck: Negative for injury, pain, and swelling, Cardiovascular: Negative for chest pain, palpitations, and edema, Respiratory: Negative for shortness of breath, cough, wheezing, and pleuritic chest pain, Abdomen/GI: Negative for abdominal pain, nausea, vomiting, diarrhea, and constipation, Back: Negative for injury and pain, : Negative for injury, bleeding, discharge, and swelling, MS/Extremity: Negative for injury and deformity, Skin: Negative for injury, rash, and discoloration, Psych: Negative for depression, anxiety, suicide ideation, homicidal ideation, and hallucinations, Allergy/Immunology: Negative for hives, rash, and allergies, Endocrine: Negative for neck swelling, polydipsia, polyuria, polyphagia, and marked weight changes, Hematologic/Lymphatic: Negative for swollen nodes, abnormal bleeding, and unusual bruising. 11:23 Neuro: Positive for headache. Exam: 11:23 Constitutional: This is a well developed, well nourished patient who is awake, alert, essence and in no acute distress. Head/Face: Normocephalic, atraumatic. Eyes: Pupils equal round and reactive to light, extra-ocular motions intact. Lids and lashes normal. Conjunctiva and sclera are non-icteric and not injected. Cornea within normal limits. Periorbital areas with no swelling, redness, or edema. ENT: Nares patent. No nasal discharge, no septal abnormalities noted. Tympanic membranes are normal and external auditory canals are clear. Oropharynx with no redness, swelling, or masses, exudates, or evidence of obstruction, uvula midline. Mucous membranes moist. Neck: Trachea midline, no thyromegaly or masses palpated, and no cervical lymphadenopathy. Supple, full range of motion without nuchal rigidity, or vertebral point tenderness. No Meningismus. Chest/axilla: Normal chest wall appearance and motion. Nontender with no deformity. No lesions are appreciated. Cardiovascular: Regular rate and rhythm with a normal S1 and S2. No gallops, murmurs, or rubs. Normal PMI, no JVD. No pulse deficits. Respiratory: Lungs have equal breath sounds bilaterally, clear to auscultation and percussion. No rales, rhonchi or wheezes noted. No increased work of breathing, no retractions or nasal flaring. Abdomen/GI: Soft, non-tender, with normal bowel sounds. No distension or tympany. No guarding or rebound. No evidence of tenderness throughout. Back: No spinal tenderness. No costovertebral tenderness. Full range of motion. Skin: Warm, dry with normal turgor. Normal color with no rashes, no lesions, and no evidence of cellulitis. MS/ Extremity: Pulses equal, no cyanosis. Neurovascular intact. Full, normal range of motion. Neuro: Awake and alert, GCS 15, oriented to person, place, time, and situation. Cranial nerves II-XII grossly intact. Motor strength 5/5 in all extremities. Sensory grossly intact. Cerebellar exam normal. Normal gait. Psych: Awake, alert, with orientation to person, place and time. Behavior, mood, and affect are within normal limits. 11:23 Neck: ROM/movement: is normal, no acute changes, limited range of motion, is not appreciated, Meningeal signs: are not present, Kernig's sign is negative, Brudzinski's sign is negative. Vital Signs: 11:15 BP 132 / 85; Pulse 83; Resp 16; Temp 97; Pulse Ox 99% ; Weight 119.75 kg; Height 5 ft. iw 4 in. ; Pain 10/10; 12:00 BP 124 / 66; Pulse 74; Resp 16; Pulse Ox 98% on R/A; db 13:00 BP 146 / 82; Pulse 74; Resp 16; Pulse Ox 98% on R/A; db 11:15 Body Mass Index 45.32 (119.75 kg, 162.56 cm) iw 11:15 Pain Scale: Adult iw Jerry Coma Score: 11:25 Eye Response: spontaneous(4). Motor Response: obeys commands(6). Verbal Response: essence oriented(5). Total: 15. MDM: 11:10 Patient medically screened. essence 11:25 Differential diagnosis: hypertensive headache, hyponatremia, intracerebral hemorrhage, essence meningitis, migraine, neoplasm, subarachnoid bleed, subdural hematoma, temporal arteritis, tension headache, trigeminal neuralgia, vasomotor headache. Data reviewed: vital signs, nurses notes, lab test result(s), radiologic studies, CT scan. Consideration of Admission/Observation Escalation of care including admission/observation considered. I considered the following discharge prescriptions or medication management in the emergency department Medications were administered in the Emergency Department. See MAR. Test considered but Not performed: CT: no mri brain. Historians other than the Patient: Family Member: mom. Care significantly affected by the following chronic conditions: Diabetes, Obesity, anemia, covid. 05/09 11:19 Order name: CBC with Diff; Complete Time: 12:38 [facility] 05/09 11:19 Order name: Comprehensive Metabolic Panel; Complete Time: 12:38 [facility] 05/09 11:19 Order name: Urinalysis w/ reflexes [facility] 05/09 11:19 Order name: Test, Serum; Complete Time: 12:38 [facility] 05/09 11:19 Order name: CT Head Brain wo Cont; Complete Time: 13:12 [facility] 05/09 11:19 Order name: CT Head Angio; Complete Time: 13:12 [facility] 05/09 11:19 Order name: CT Neck Angio; Complete Time: 13:12 [facility] 05/09 11:20 Order name: Oxygen: 2 liters; Complete Time: 12:27 essence Administered Medications: 11:45 Drug: Ketorolac IVP 30 mg Route: IVP; Site: right antecubital; db 14:04 Follow up: Response: No adverse reaction db 11:45 Drug: NS 0.9% IV 1000 ml Route: IV; Rate: 1 bolus; Site: right antecubital; db 14:02 Follow up: Response: No adverse reaction; IV Status: Completed infusion; IV Intake: db 1000ml 11:50 Drug: metoCLOPramide IVP 10 mg Route: IVP; Site: right antecubital; db 14:04 Follow up: Response: No adverse reaction db 11:50 Drug: diphenhydrAMINE IVP 50 mg Route: IVP; Site: right antecubital; db 14:04 Follow up: Response: No adverse reaction db Disposition Summary: 05/09/23 13:12 Discharge Ordered Location: Home essence Problem: new essence Symptoms: have improved essence Condition: Stable essence Diagnosis - Type 2 diabetes mellitus with hyperglycemia essecne - Headache essence Followup: essence - With: Private Physician - When: 2 - 3 days - Reason: Recheck today's complaints, Continuance of care, Re-evaluation by your physician Followup: essence - With: - When: 2 - 3 days - Reason: Recheck today's complaints, Continuance of care, Re-evaluation by your physician Discharge Instructions: - Discharge Summary Sheet essence - General Headache Without Cause essence - Hyperglycemia essence - Diabetes Mellitus and Nutrition, Adult essence - General Headache Without Cause, [id number] essence Forms: - Medication Reconciliation Form essence - Thank You Letter essence - Antibiotic Education essence - Prescription Opioid Use essence - Patient Portal Instructions essence Prescriptions: - Fioricet with Codeine [id number] mg Oral capsule - take 2 capsule by ORAL route every 4 hours as needed for pain; do not exceed 6 essence caps per day; 20 capsule; Refills: 0, Product Selection Permitted - Zofran 4 mg Oral Tablet - take 1 tablet by ORAL route every 12 hours As needed; 20 tablet; Refills: 0, essence Product Selection Permitted Signatures: Dispatcher [employer] Chuy Lawrence MD MD cha Williams, Irene, RN RN iw Vianey Dupont RN RN db
--- NOTE | 2023-05-09 13:13 | ER ---
Nurse's Notes [facility] Name: Charity Colon Age: 38 yrs Sex: Female : 1985 Arrival Date: 05/09/2023 Time: 11:09 Bed 17 Private MD: Diagnosis: Type 2 diabetes mellitus with hyperglycemia;Headache Presentation: 05/09 11:15 Chief complaint: Patient states: was brushing her teeth this morning and her whole head iw started hurting feels like being electrocuted. Coronavirus screen: At this time, the client does not indicate any symptoms associated with coronavirus-19. Ebola Screen: Patient negative for fever greater than or equal to 101.5 degrees Fahrenheit, and additional compatible Ebola Virus Disease symptoms Patient denies exposure to infectious person. Patient denies travel to an Ebola-affected area in the 21 days before illness onset. No symptoms or risks identified at this time. Initial Sepsis Screen: Does the patient meet any 2 criteria? No. Patient's initial sepsis screen is negative. Does the patient have a suspected source of infection? No. Patient's initial sepsis screen is negative. Risk Assessment: Do you want to hurt yourself or someone else? Patient reports no desire to harm self or others. Onset of symptoms was May 09, 2023. 11:15 Acuity: TAISHA 3 iw 11:15 Method Of Arrival: Wheelchair iw Triage Assessment: 11:45 Headache History: The patient has had previous headaches and this one is similar to db previous episodes. General: Appears in no apparent distress. Behavior is calm, cooperative. Pain: Pain currently is 9 out of 10 on a pain scale. Pain began suddenly, Also complains of nausea. 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 - Social history:: Smoking status: Patient denies any tobacco usage or history of. Screenin:57 [facility] ED Fall Risk Assessment (Adult) History of falling in the last 3 months, db including since admission No falls in past 3 months (0 pts) Confusion or Disorientation No (0 pts) Intoxicated or Sedated No (0 pts) Impaired Gait No (0 pts) Mobility Assist Device Used No (0 pt) Altered Elimination No (0 pt) Score/Fall Risk Level 0 - 2 = Low Risk Oriented to surroundings, Maintained a safe environment. Abuse screen: Denies threats or abuse. Denies injuries from another. Nutritional screening: No deficits noted. Tuberculosis screening: No symptoms or risk factors identified. Assessment: 11:55 Reassessment: Patient appears in no apparent distress at this time. Patient and/or db family updated on plan of care and expected duration. Pain level reassessed. Patient is alert, oriented x 3, equal unlabored respirations, skin warm/dry/pink. General: Appears in no apparent distress. comfortable, Behavior is calm, cooperative. Pain: Complains of pain in right base of the skull and right occipital area and right side of the back of head. Neuro: Level of Consciousness is awake, alert, obeys commands, Oriented to person, place, time, situation, Speech is normal. Respiratory: Airway is patent Respiratory effort is even, unlabored, Respiratory pattern is regular, symmetrical. 12:44 Reassessment: PATIENT IN CT. FAMILY AT BEDSIDE. db 14:08 Reassessment: Patient appears in no apparent distress at this time. Patient and/or db family updated on plan of care and expected duration. Pain level reassessed. Patient is alert, oriented x 3, equal unlabored respirations, skin warm/dry/pink. Patient states feeling better. Patient states symptoms have improved. Vital Signs: 11:15 BP 132 / 85; Pulse 83; Resp 16; Temp 97; Pulse Ox 99% ; Weight 119.75 kg; Height 5 ft. iw 4 in. ; Pain 10/10; 12:00 BP 124 / 66; Pulse 74; Resp 16; Pulse Ox 98% on R/A; db 13:00 BP 146 / 82; Pulse 74; Resp 16; Pulse Ox 98% on R/A; db 11:15 Body Mass Index 45.32 (119.75 kg, 162.56 cm) iw 11:15 Pain Scale: Adult iw Jerry Coma Score: 11:25 Eye Response: spontaneous(4). Motor Response: obeys commands(6). Verbal Response: essence oriented(5). Total: 15. ED Course: 11:09 Patient arrived in ED. am2 11:10 Chuy Lancaster MD is Attending Physician. [facility] 11:17 Triage completed. iw 11:17 Arm band placed on. iw 11:24 Vianey Dupont, RN is Primary Nurse. db 11:33 Inserted saline lock: 20 gauge in right antecubital area, using aseptic technique. db Blood collected. 11:35 Initial lab(s) drawn, by me, sent to lab. db 11:55 CT Head Brain wo Cont In Process Unspecified. EDMS 11:55 CT Head Angio In Process Unspecified. EDMS 11:55 CT Neck Angio In Process Unspecified. EDMS 11:57 Patient has correct armband on for positive identification. Bed in low position. Call db light in reach. Side rails up X 1. 13:12 Phuc Dubose MD is Referral Physician. [facility] 14:08 Provided Education on: DISCHARGE. db 14:08 No provider procedures requiring assistance completed. IV discontinued, intact, db bleeding controlled, No redness/swelling at site. Administered Medications: 11:45 Drug: Ketorolac IVP 30 mg Route: IVP; Site: right antecubital; db 14:04 Follow up: Response: No adverse reaction db 11:45 Drug: NS 0.9% IV 1000 ml Route: IV; Rate: 1 bolus; Site: right antecubital; db 14:02 Follow up: Response: No adverse reaction; IV Status: Completed infusion; IV Intake: db 1000ml 11:50 Drug: metoCLOPramide IVP 10 mg Route: IVP; Site: right antecubital; db 14:04 Follow up: Response: No adverse reaction db 11:50 Drug: diphenhydrAMINE IVP 50 mg Route: IVP; Site: right antecubital; db 14:04 Follow up: Response: No adverse reaction db Medication: 14:08 VIS not applicable for this client. db Intake: 14:02 IV: 1000ml; Total: 1000ml. db Outcome: 13:12 Discharge ordered by . [facility] 14:07 Discharged to home ambulatory, with family. db 14:07 Condition: stable 14:07 Discharge instructions given to patient, Instructed on discharge instructions, follow up and referral plans. Prescriptions given X 2. 14:09 Patient left the ED. db Signatures: Dispatcher [employer] EDChuy Warren MD MD cha Williams, Irene, RN RN iw Binta Branham am2 Vianey Dupont RN RN db Corrections: (The following items were deleted from the chart) 11:17 11:15 Pulse 83bpm; Resp 16bpm; Pulse Ox 99%; Temp 97F; 119.75 kg; Height 5 ft. 4 in.; iw BMI: 45.3; Pain 07/18, Adult; iw
[2023-05-09 14:05] LABS: Specific Gravity > 1.030 (1.005-1.030); Urine Bacteria <20 /HPF (<20); Urine Bilirubin NEGATIVE (Negative); Urine Blood 3+ (Negative); Urine Clarity Clear (Clear); Urine Color Colorless (Yellow); Urine Glucose NEGATIVE (Negative); Urine Mucus Slight /HPF (None Seen); Urine Protein NEGATIVE (Negative); Urine RBC <5 /HPF (None Seen); Urine Urobilinogen Normal (Normal); Urine pH 5.5 (5.0-7.0)
[2023-05-09] MEDS ORDERED: METHYLPREDNISOLONE 125 MG INJ ONE (14:05)
[2023-05-09 14:24] VITALS: TEMP 97
[2023-05-09 14:29] VITALS: O2SAT 98
[2023-05-09 14:35] VITALS: BP 146/82
== END 2023-05-09 14:09 | disposition home or self-care (01) ==
LOC: ER 11:09
DX: E11.65 Type 2 diabetes mellitus with hyperglycemia (principal)
CPT/HCPCS: 36415; 70450; 70496; 70498; 80053; 81001; 84703; 85025; J1200; J2765; J2930; J7030; Q9967

== ENCOUNTER 2023-07-25 14:54 | Emergency (ER) | payer SELFPAY ==
[2023-07-25 15:33] LABS: Specific Gravity > 1.030 (1.005-1.030)
[2023-07-25] MEDS ORDERED: KETOROLAC 30 MG/ML INJ ONE (15:33)
[2023-07-25] MEDS ORDERED: LIDOCAINE 4% PATCH ONE (15:34)
[2023-07-25 15:38] LABS: Specific Gravity > 1.030 (1.005-1.030); Urine Bacteria <20 /HPF (<20); Urine Bilirubin NEGATIVE (Negative); Urine Blood Negative (Negative); Urine Clarity Extremely Turbid (Clear); Urine Color Yellow (Yellow); Urine Glucose NEGATIVE (Negative); Urine Mucus 3+ /HPF (None Seen); Urine Protein 1+ (Negative); Urine Urobilinogen 1+ (Normal); Urine pH 5.5 (5.0-7.0)
--- OUTSIDE RECORDS SUMMARY | 2023-07-25 15:41 | XMS REPORT | Continuity of Care Document ---
:[address] [facility] t Address [address] [place] [address] [place] [address] Care Team Providers Name Role Phone Jaida Mcintyre Primary Care Physician [phone] Problems This patient has no known problems. Allergies, Adverse Reactions, Alerts This patient has no known allergies or adverse reactions. Medications Ordered Filled Start Stop Current Ordering Indication Dosage Frequency Signature Comments Components Source Medication Medication Date Date Medication? Clinician (SIG) Name Name INJECT 1 ML 2021-10 No 150 INTRAMUSCUL 03 MARK ONCE 00:00: EVERY 3 00 MONTHS. DEPO-CASH VAN SALESPERSON 2021-10 No A 150 MG/ML 10-11 SYRI 00:00: 00 Dose 2021-0 No Unknown 8 00:00: 00 Dose 2021-0 No Unknown 05-20 [...] mg-10 mg/5 00:00: mL oral 00 syrup tramadol 2019-0 No 1mg 37.5 9-18 mg-acetamin [...] 800 mg-160 9-18 mg tablet 00:00: 00 amoxicillin 2019-0 No 1mg 875 mg 2-15 tablet 00:00: 00 amoxicillin 2019-0 No 1mg 875 mg 2-15 tablet 00:00: 00 amoxicillin 2019-0 No 1mg 875 mg 2-15 tablet 00:00: 00 amoxicillin 2019-0 No 1mg 875 mg 2-15 tablet 00:00: 00 amoxicillin 2019-0 No 1mg 875 mg 2-15 tablet 00:00: 00 amoxicillin 2019-0 No 1mg 875 mg 2-15 tablet 00:00: 00 liothyronin 2018-0 No 1mcg [...] e 5 mcg 9-12 tablet 00:00: 00 ferrous 2017-0 No [...] (65 mg 00:00: iron) 00 tablet levothyroxi 2016-0 No 1mcg ne 100 mcg 4-20 tablet 00:00: 00 levothyroxi 2017-0 No 1mcg ne 100 mcg 4-20 tablet 00:00: 00 ferrous 2017-0 No 1(65 mg sulfate 325 4-20 iron) mg (65 mg 00:00: iron) 00 tablet ferrous 2017-0 No 1(65 mg sulfate 325 4-20 iron) mg (65 mg 00:00: iron) 00 tablet levothyroxi 2016-0 No 1mcg ne 100 mcg 4-20 tablet 00:00: 00 levothyroxi 2016-0 No 1mcg ne 100 mcg 4-20 tablet 00:00: 00 Vital Signs Vital Name Observation Time Observation [...] Goal Plan of Care Note [code = 07928-2] Goal Plan of Care Note [code = 65836-2] Goal Plan of Care Note [code = 87578-9] Goal Plan of Care Note [code = 93471-0] Goal Plan of Care Note [code = 77525-6] Goal Plan of Care Note [code = 24765-5] Goal Plan of Care Note [code = 81183-3] Goal Plan of Care Note [code = 83663-1] Goal Plan of Care Note [code = 08786-1] Goal Plan of Care Note [code = 22757-3] Goal Plan of Care Note [code = 52087-8] Goal Plan of Care Note [code = 34098-7] Goal Plan of Care Note [code = 47488-3] Goal Plan of Care Note [code = 36288-5] Goal Plan of Care Note [code = 70077-3] Goal Plan of Care Note [code = 75896-5] Goal Plan of Care Note [code = 33064-5] Goal Plan of Care Note [code = 82965-6] Goal Plan of Care Note [code = 88649-5] Goal Plan of Care Note [code = 17233-8] Goal Plan of Care Note [code = 69216-7] Goal Plan of Care Note [code = 38770-2] Goal Plan of Care Note [code = 29718-4] Goal Plan of Care Note [code = 78602-0] Goal Plan of Care Note [code = 28628-8] Goal Plan of Care Note [code = 50469-3] Goal Plan of Care Note [code = 81800-2] Goal Plan of Care Note [code = 24882-0] Goal Plan of Care Note [code = 40960-6] Goal Plan of Care Note [code = 40446-0] Goal Plan of Care Note [code = 57529-1] Goal Plan of Care Note [code = 05949-4] Goal Plan of Care Note [code = 47970-4] Goal Plan of Care Note [code = 33417-3] Goal Plan of Care Note [code = 43117-7] Goal Plan of Care Note [code = 13156-5] Goal Plan of Care Note [code = 36475-4] Goal Plan of Care Note [code = 91845-8] Goal Plan of Care Note [code = 00387-8] Goal Plan of Care Note [code = 74101-9] Goal Plan of Care Note [code = 54051-2] Goal Plan of Care Note [code = 53528-8] Goal Plan of Care Note [code = 77250-1] Goal Plan of Care Note [code = 03178-4] Goal Plan of Care Note [code = 05398-6] Goal Plan of Care Note [code = 71495-4] Goal Plan of Care Note [code = 16692-1] Goal Plan of Care Note [code = 50321-2] Goal Plan of Care Note [code = 27868-7] Goal Plan of Care Note [code = 76929-2] Goal Plan of Care Note [code = 75146-1] Goal Plan of Care Note [code = 20475-9] Goal Plan of Care Note [code = 80047-3] Goal Plan of Care Note [code = 09987-2] Goal Plan of Care Note [code = 60297-5] Goal Plan of Care Note [code = 46702-7] Goal Plan of Care Note [code = 03463-3] Goal Plan of Care Note [code = 37654-0] Goal Plan of Care Note [code = 92110-6] Goal Plan of Care Note [code = 29522-3] Goal Plan of Care Note [code = 20781-5] Goal Plan of Care Note [code = 84676-3] Goal Plan of Care Note [code = 22506-7] Goal Plan of Care Note [code = 25289-4] Goal Plan of Care Note [code = 69384-4] Goal Plan of Care Note [code = 97627-5] Goal Plan of Care Note [code = 22146-1] Goal Plan of Care Note [code = 51759-1] Goal Plan of Care Note [code = 21483-0] Goal Plan of Care Note [code = 80969-5] Goal Plan of Care Note [code = 16658-8] Goal Plan of Care Note [code = 95316-9] Goal Plan of Care Note [code = 95818-7] Goal Plan of Care Note [code = 96285-9] Goal Plan of Care Note [code = 69643-1] Goal Plan of Care Note [code = 01343-4] Goal Plan of Care Note [code = 50277-7] Goal Plan of Care Note [code = 50425-3] Goal Plan of Care Note [code = 63686-0] Goal Plan of Care Note [code = 97372-6] Goal Plan of Care Note [code = 60643-6] Goal Plan of Care Note [code = 42816-5] Goal Plan of Care Note [code = 27660-3] Goal Plan of Care Note [code = 28352-5] Goal Plan of Care Note [code = 12805-7] Goal Plan of Care Note [code = 38237-3] Goal Plan of Care Note [code = 26386-0] Goal Plan of Care Note [code = 39217-5] Goal Plan of Care Note [code = 77805-5] Goal Plan of Care Note [code = 09337-6] Goal Plan of Care Note [code = 57575-6] Goal Plan of Care Note [code = 92903-0] Goal Plan of Care Note [code = 40131-6] Goal Plan of Care Note [code = 29319-7] Goal Plan of Care Note [code = 37421-6] Goal Plan of Care Note [code = 36979-4] Goal Plan of Care Note [code = 89026-1] Goal Plan of Care Note [code = 44647-8] Goal Plan of Care Note [code = 54306-6] Goal Plan of Care Note [code = 95405-3] Goal Plan of Care Note [code = 58175-6] Goal Plan of Care Note [code = 47420-8] Goal Plan of Care Note [code = 57327-4] Goal Plan of Care Note [code = 72700-5] Goal Plan of Care Note [code = 70924-4] Goal Plan of Care Note [code = 88724-8] Goal Plan of Care Note [code = 94168-0] Goal Plan of Care Note [code = 46490-9] Goal Plan of Care Note [code = 63231-6] Goal Plan of Care Note [code = 83352-6] Goal Plan of Care Note [code = 08500-9] Goal Plan of Care Note [code = 20704-4] Goal Plan of Care Note [code = 29748-7] Goal Plan of Care Note [code = 69278-9] Goal Plan of Care Note [code = 27598-9] Goal Plan of Care Note [code = 06559-8] Goal Plan of Care Note [code = 31958-1] Goal Plan of Care Note [code = 94063-2] Goal Plan of Care Note [code = 68281-9] Goal Plan of Care Note [code = 01222-0] Goal Plan of Care Note [code = 11319-5] Goal Plan of Care Note [code = 44987-1] Goal Plan of Care Note [code = 33303-4] Goal Plan of Care Note [code = 14835-9] Goal Plan of Care Note [code = 33187-9] Goal Plan of Care Note [code = 22866-4] Goal Plan of Care Note [code = 48925-9] Goal Plan of Care Note [code = 70154-3] Goal Plan of Care Note [code = 91903-8] Goal Plan of Care Note [code = 96182-3] Goal Plan of Care Note [code = 41428-2] Goal Plan of Care Note [code = 30457-3] Goal Plan of Care Note [code = 24013-4] Goal Plan of Care Note [code = 02789-6] Goal Plan of Care Note [code = 93719-1] Goal Plan of Care Note [code = 04091-5] Goal Plan of Care Note [code = 49670-7] Goal Plan of Care Note [code = 86404-5] Goal Plan of Care Note [code = 17457-0] Goal Plan of Care Note [code = 99379-1] Goal Plan of Care Note [code = 34264-7] Goal Plan of Care Note [code = 83466-6] Goal Plan of Care Note [code = 25126-7] Goal Plan of Care Note [code = 62342-4] Goal Plan of Care Note [code = 43934-5] Goal Plan of Care Note [code = 14053-2] Goal Plan of Care Note [code = 46831-9] Goal Plan of Care Note [code = 20059-4] Goal Plan of Care Note [code = 17038-8] Goal Plan of Care Note [code = 42110-4] Goal Plan of Care Note [code = 64079-1] Goal Plan of Care Note [code = 73083-8] Goal Plan of Care Note [code = 61766-2] Goal Plan of Care Note [code = 31192-0] Goal Plan of Care Note [code = 38601-3] Goal Plan of Care Note [code = 47254-5] Goal Plan of Care Note [code = 25540-1] Goal Plan of Care Note [code = 48589-5] Goal Plan of Care Note [code = 63691-0] Goal Plan of Care Note [code = 26166-9] Goal Plan of Care Note [code = 47903-2] Goal Plan of Care Note [code = 94648-5] Goal Plan of Care Note [code = 49787-5] Goal Plan of Care Note [code = 31566-9] Goal Plan of Care Note [code = 71063-9] Goal Plan of Care Note [code = 81568-0] Goal Plan of Care Note [code = 39097-0] Goal Plan of Care Note [code = 17151-4] Goal Plan of Care Note [code = 37901-5] Goal Plan of Care Note [code = 22851-3] Goal Plan of Care Note [code = 48513-1] Goal Plan of Care Note [code = 67364-2] Goal Plan of Care Note [code = 36488-6] Goal Plan of Care Note [code = 74920-0] Goal Plan of Care Note [code = 29025-7] Goal Plan of Care Note [code = 30382-1] Goal Plan of Care Note [code = 88395-0] Goal Plan of Care Note [code = 11257-8] Goal Plan of Care Note [code = 11497-8] Goal Plan of Care Note [code = 08057-2] Goal Plan of Care Note [code = 09575-3] Goal Plan of Care Note [code = 49650-0] Goal Plan of Care Note [code = 87892-2] Goal Plan of Care Note [code = 10640-6] Goal Plan of Care Note [code = 26602-3] Goal Plan of Care Note [code = 58252-3] Goal Plan of Care Note [code = 21424-5] Goal Plan of Care Note [code = 91864-5] Goal Plan of Care Note [code = 71955-0] Goal Plan of Care Note [code = 19260-1] Goal Plan of Care Note [code = 62205-6] Goal Plan of Care Note [code = 11165-6] Goal Plan of Care Note [code = 09927-8] Goal Plan of Care Note [code = 82892-2] Goal Plan of Care Note [code = 79125-0] Goal Plan of Care Note [code = 48274-4] Goal Plan of Care Note [code = 56848-7] Goal Plan of Care Note [code = 20066-8] Goal Plan of Care Note [code = 28251-1] Goal Plan of Care Note [code = 49412-4] Goal Plan of Care Note [code = 96220-5] Goal Plan of Care Note [code = 64497-2] Goal Plan of Care Note [code = 38470-8] Goal Plan of Care Note [code = 74589-2] Goal Plan of Care Note [code = 68837-6] Goal Plan of Care Note [code = 45650-7] Goal Plan of Care Note [code = 91346-9] Goal Plan of Care Note [code = 28562-1] Goal Plan of Care Note [code = 70921-7] Goal Plan of Care Note [code = 80437-9] Goal Plan of Care Note [code = 03519-9] Goal Plan of Care Note [code = 20767-9] Goal Plan of Care Note [code = 95249-5] Goal Plan of Care Note [code = 64190-3] Goal Plan of Care Note [code = 98284-7] Goal Plan of Care Note [code = 14127-2] Goal Plan of Care Note [code = 63024-7] Goal Plan of Care Note [code = 94345-6] Goal Plan of Care Note [code = 48136-0] Goal Plan of Care Note [code = 65566-1] Goal Plan of Care Note [code = 08617-6] Goal Plan of Care Note [code = 81456-5] Goal Plan of Care Note [code = 34126-1] Goal Plan of Care Note [code = 36726-6] Goal Plan of Care Note [code = 51907-3] Goal Plan of Care Note [code = 71212-4] Goal Plan of Care Note [code = 46968-5] Encounters Start End Encounter Admission Attending Care Care Encounter Source Date/Time Date/Time Type Type Clinicians Facility Department ID 2023-07-20 2023-07-[address] [facility] [id number] [facility] 14:03:09 14:03:09 [address] [place] 2023-06-15 2023-06-15 Outpatient SFA SFA 023 [place] 15:28:12 15:28:12 0[address] [place] 2023-06-12 2023-06-12 Outpatient SFA SFA 023 [place] 08:11:27 08:11:27 0904 [place] 2023-05-23 2023-05-23 Outpatient SFA SFA 023 [place] 14:29:41 14:29:41 0815 [place] 2023-05-16 2023-05-16 Outpatient SFA SFA 023 [place] 09:01:39 09:01:39 0808 [place] 2023-05-12 2023-05-12 Outpatient SFA SFA 023 [place] 13:13:38 13:13:38 0804 [place] 2023-05-03 2023-05-03 Outpatient SFA SFA 023 [place] 13:03:34 13:03:34 0726 [place] 2023-05-02 2023-05-02 Outpatient SFA SFA 023 [place] 13:40:38 13:40:38 0725 [place] 2023-02-07 2023-02-07 Outpatient SFA SFA 023 [place] 14:17:12 14:17:12 0502 [facility] 2022-11-02 2022-11-02 Outpatient SFA SFA 023 [place] 14:59:01 14:59:01 0125 [facility] 2022-10-31 2022-10-31 Outpatient SFA SFA 023 [place] 16:09:17 16:09:17 0123 [facility] 2022-10-31 2022-10-31 Outpatient [id number] gk72ns-x 00:00:00 00:00:00 Visit bbc9-4489 bc9-4489-9 -9094-5d3 094-0m2563 [id number] 8007-11-03 2022-08-11 Outpatient SFA SFA 43482-3 022 [place] 14:41:35 14:41:35 110[address] [place] 2022-08-11 2022-08-11 Outpatient [id number] dp7992-5 00:00:00 00:00:00 Visit 9u3s-427s q3o-213d-m -j7kw-zz8 0ab-ad7a1d n3u1019m3 0820a0 2022-07-25 2022-07-25 Outpatient DOTTIE S[facility] 99930-9 [facility] 13:07:55 13:07:55 1017 [facility] [place] 2022-07-25 2022-07-25 Outpatient [id number] cc 099619-x 00:00:00 00:00:00 Visit c0d1-57o9 7f3-63a3-9 -8500-db2 500-db2f1d p6cv22681 v35302 2022-06-06 2022-06-06 Outpatient [id number] 84e2e6-8 00:00:00 00:00:00 Visit 5k95-2b9t g73-9t2t-d -pb84-932 b55-445x88 w99n15l19 d91e80 2022-05-20 2022-05-20 Outpatient [id number] 799226-d 00:00:00 00:00:00 Visit q491-79e8 063-40e0-a -q03j-740 64a-1756ed 3ahan1g4q bf6a3f 2022-05-10 2022-05-10 Outpatient [id number]- [id number] 8b heh6x4-1 00:00:00 00:00:00 Visit 9qs7-676a be1-435f-8 -8301-5f8 301-6e911x 59h16x719 61z594 Results Test Description Test Time Test Comments Results Result Comments Source HEMOGLOBIN A1c 2023-06-14 05:25:02 Test Item Value Reference Range Interpretation Comme nts HEMOGLOBIN A1c (test code = 8.4 % 4.2-5.6 H [employer] 73552) GUIDELINES FOR HGB A1C: PREDIABETES/INC REASED RISK . . . . . . . 5.7-6.4% DIAGNO SIS OF DIABETES . . . . . . . . . >=6.5% WITH CONFIRMATION OR APPROPRIATE SYM PTOMS NOTE: ASSAY MAY BE AFFECTED BY HEM OGLOBINOPATHIES (SICKLE CELL ANEMIA, S- C DISEASE, OTHERS) OR ARTIFICIALLY LO WERED BY DECREASED RED CELL SURVIVAL ( HEMOLYTIC ANEMIAS, BLOOD LOSS, ETC.). CO NSIDER ALTERNATE TESTING OR LABORATORY C ONSULTATION. UNLESS OTHERWISE INDIC ATED, ALL TESTING PERFORMED AT [facility], [facility]. [address] [place] [address] CHIDI GREY DIRECTOR: Magaly GHOTRA DIEGO NUMBER [id number] [facility] ACCREDITATION N O. [id number] VITAMIN B 12 AND FOLIC [id number] 06:10:44 Test Item Value Reference Range Interpretation Comments VITAMIN B-12 (test 503 PG/ML 200-950 code = 2840) FOLIC ACID (test 8.2 UG/L SEE BELOW INT ERPRETIVE code = 2695) RANGES DE FICIENCY . . . . . . . . . . . . . . . UG/L <4.0 POSSIBLE DEFICIENCY. . . . . . . . . . . UG/L 4. 0-5.9 SUFFICIENT . . . . . . . . . . . . . . . UG/L >=6.0 ALBUMIN/CREATININE RATIO, URINE, [id number] 05:20:09 Test Item Value Reference Range Interpretation Comments CREATININE, URINE, 133.0 MG/DL NOT ESTAB CONC. (test code = 2072) ALBUMIN, URINE, 3.5 MG/DL NOT ESTAB RANDOM (test code = 17006) CALC ALBUMIN/CREAT, 26 MG/G <30 Note: RND (test code = Albumin/Cre atinine 04629) ratio reference interval reflec ts ADA and NKF guideli manoj. [id number] 05:11:08 Test Item Value Reference Range Interpretation Comments FERRITIN (test code = 2075) 84 NG/ML 13-200 TSH, THIRD [id number] 05:11:08 Test Item Value Reference Range Interpretation Comments TSH, THIRD GENERATION (test code 5.360 UIU/ML 0.400-4.100 H = 2821) [id number] 05:09:49 Test Item Value Reference Range Interpretation Comments TRANSFERRIN (test code = 4936) 292 MG/DL 200-360 IRON BINDING CAPACITY AND IRON AND % [id number] 04:54:54 Test Item Value Reference Range Interpretation Comments IRON, SERUM (test code = 2221) 81 UG/DL 37-145 UNSATURATED IBC (test code = ) 257 UG/DL 112-347 CALC TOTAL IBC (test code = 2076) 338 UG/DL 250-450 CALC % IRON SAT (test code = 2078) 24 % 20-50 COMPREHENSIVE METABOLIC [id number] 04:54:54 Test Item Value Reference Range Interpretation Comments GLUCOSE (test code = 165 MG/DL 70-99 H 2216) BUN (test code = 11 MG/DL 6-20 2207) CREATININE (test 0.63 MG/DL 0.60-1.30 code = 2213) eGFR (2020 CKD-EPI) 115 >60 (test code = ) ML/MIN/1.73 CALC BUN/CREAT (test 17 RATIO 6-28 code = 2235) SODIUM (test code = 141 MEQ/L 052-474 2984) POTASSIUM (test code 4.3 MEQ/L 3.5-5.4 = 2227) CHLORIDE (test code 106 MEQ/L 95-107 = 2214) CARBON DIOXIDE (test 23 MEQ/L 19-31 code = 220) CALCIUM (test code = 9.6 MG/DL 8.5-10.5 2208) PROTEIN, TOTAL (test 7.3 G/DL 6.1-8.3 code = 222) ALBUMIN (test code = 4.1 G/DL 3.5-5.2 2200) CALC GLOBULIN (test 3.2 G/DL 1.9-3.7 code = 2240) CALC A/G RATIO (test 1.3 RATIO 1.0-2.6 code = 2234) BILIRUBIN, TOTAL 0.5 MG/DL See_Comment [Automated message] (test code = 2206) The syste m which generated this result transmit bri reference range : <=1.2. The refe rence range was not u sed to interpret th is result as normal/abnormal . ALKALINE PHOSPHATASE 105 U/L 40-112 (test code = 2204) AST (test code = 25 U/L 9-40 2217) ALT (test code = 41 U/L 5-40 H 2218) LIPID [id number] 04:54:54 Test Item Value Reference Range Interpretation Comments CHOLESTEROL (test 207 MG/DL <200 H code = 2210) TRIGLYCERIDES (test 162 MG/DL <150 H code = 2232) HDL CHOLESTEROL (test 34 MG/DL >39 L code = 2220) CALC LDL CHOL (test 143 MG/DL <100 H NOTE: C ALCULATED LDL code = 2237) IS BASED ON SHAMEKA-JACOBSON METHOD WHICHINCLUDES ADJUSTABLE TRIGLYCERIDE:VL DL CHOLESTEROL RAT IO.THIS FACTOR VARIES B Y MEASURED TRIGLY CERIDE AND NON-HDLCHOL ESTEROL CONCENTRATIONS WITH INCREASED CALCU LATED LDL SEENIN HIGH ER TRIGLYCERIDE OR LOWER NON-HDL SPECIME NS. FOR MOREINFORMATION , SEE CLIENT ANNOUNCE MENT AT [email or web address] RATIO LDL/HDL 4.21 RATIO <3.22 H UNLESS O THERWISE (test code = 2238) INDICATED , ALL TESTING PERFORMED AT [facility], [place] [place] [address] LABOR ATORY DIRECTOR: Magaly MARION DIEGO NUMBER [id number] CAP ACCREDITATION N O. [id number] SARS-CoV-2 (COVID-19), RT-PCR/[id number] 08:48:24 Test Item Value Reference Interpretation Comments Range SARS-CoV-2 NEGATIVE SEE NOTE SARS-CoV-2 RNA NOT INTERPRETATION DETECTEDNegat sara (test code = 01578) results do not preclude SARS-CoV-2 infe ction and should notb e used as the sole bas is for patient managem ent decisions. Negativeresults must be combined with c linical observations, p atient history,and epidemiological information. Op timum specimen types and timingfor peak viral levels during infections caus ed by SARS-CoV-2 have notbeen determined. Col lection of multiple spe cimens or types ofspec imens may be necessar y to detect virus. I mproper specimencollect ion and handling, seque nce variability und er primers/probes, or organism presen t below the limit of de tection may lead to falsenegative r esults. Positive and ne gative predictive valu es oftesting are h ighly dependent on prevalence. Fal se negative testre sults are more likely when prevalence is h igh. EFFECTIVE 12/20, SPUTUM SPECIMEN S CAN NO LONGER BE TESTE D WITHTHIS ORDER CODE. FOR SALIVA, ORA L FLUID TESTING AND SPECIMENREQUIRE MENTS, PLEASE REFER TO ORDER CODE 3509. SOURCE (test code = NOT SPECIFIED [place]: [place] [address]) Dona Sincere Natalia l-Time RT-PCR. The exp ected result or refer ence range is NEGATI VE (Not Detected). For more information reg arding COVID-19 testin g to include clinicalinforma tion, methodology det ail, intended use, F DA authorization andrecommended fact sheets for saul ents or healthcare prov iders, see [employer] Announcement: SARS-CoV-2 (COV ID-19) by NAAT at URL below (note,fact shee ts are provided by met hod given in report:[email or web address] [email or web address] [email or web address] Alternatively, see downloadable PD F fact sheet at:https://www. [email or web address]/COVID-19-RT -PCR UNLESS OTHERWIS E INDICATED, ALL TESTING PERFORMED [facility] [address] [place] [address] 4 LABORATORY DIRE CTOR: LETTY WALLACE M.D. CLIA NUMBER [id number] [facility]. [id number] SARS-CoV-2 (COVID-19) by RT-PCR (HIGH RISK)2021-12-10 00:00:00 Test Item Value Reference Range Interpretation Comments SARS-CoV-2 INTERPRETATION (test NEGATIVE code = 77867) SOURCE (test code = 10915) NOT SPECIFIED SARS-CoV-2 (COVID-19) by RT-PCR (HIGH RISK)2021-12-10 00:00:00 Test Item Value Reference Range Interpretation Comments SARS-CoV-2 INTERPRETATION (test NEGATIVE code = 87231) SOURCE (test code = 48048) NOT SPECIFIED SARS-CoV-2 (COVID-19) by RT-PCR (HIGH RISK)2021-12-10 00:00:00 Test Item Value Reference Range Interpretation Comments SARS-CoV-2 INTERPRETATION (test NEGATIVE code = 36410) SOURCE (test code = 65999) NOT SPECIFIED SARS-CoV-2 (COVID-19) by RT-PCR (HIGH RISK)2021-12-10 00:00:00 Test Item Value Reference Range Interpretation Comments SARS-CoV-2 INTERPRETATION (test NEGATIVE code = 64313) SOURCE (test code = 96701) NOT SPECIFIED SARS-CoV-2 (COVID-19) by RT-PCR (HIGH RISK)2021-12-10 00:00:00 Test Item Value Reference Range Interpretation Comments SARS-CoV-2 INTERPRETATION (test NEGATIVE code = 59868) SOURCE (test code = 42009) NOT SPECIFIED SARS-CoV-2 (COVID-19) by RT-PCR (HIGH RISK)2021-12-10 00:00:00 Test Item Value Reference Range Interpretation Comments SARS-CoV-2 INTERPRETATION (test NEGATIVE code = 10615) SOURCE (test code = 20253) NOT SPECIFIED SARS-CoV-2 (COVID-19) by RT-PCR (HIGH RISK)2021-12-10 00:00:00 Test Item Value Reference Range Interpretation Comments SARS-CoV-2 INTERPRETATION (test NEGATIVE code = 11614) SOURCE (test code = 15559) NOT SPECIFIED SARS-CoV-2 (COVID-19) by RT-PCR (HIGH RISK)2021-12-10 00:00:00 Test Item Value Reference Range Interpretation Comments SARS-CoV-2 INTERPRETATION (test NEGATIVE code = 17564) SOURCE (test code = 49437) NOT SPECIFIED SARS-CoV-2 (COVID-19) by RT-PCR (HIGH RISK)2021-12-10 00:00:00 Test Item Value Reference Range Interpretation Comments SARS-CoV-2 INTERPRETATION (test NEGATIVE code = 17424) SOURCE (test code = 46963) NOT SPECIFIED SARS-CoV-2 (COVID-19) by RT-PCR (HIGH RISK)2021-12-10 00:00:00 Test Item Value Reference Range Interpretation Comments SARS-CoV-2 INTERPRETATION (test NEGATIVE code = 03663) SOURCE (test code = 37131) NOT SPECIFIED SARS-CoV-2 (COVID-19) by RT-PCR (HIGH RISK)2021-12-10 00:00:00 Test Item Value Reference Range Interpretation Comments SARS-CoV-2 INTERPRETATION (test NEGATIVE code = 84203) SOURCE (test code = 06903) NOT SPECIFIED TSH + FREE T4 [id number] 04:46:08 Test Item Value Reference Range Interpretation Comments TSH, THIRD 3.090 UIU/ML 0.400-4.100 GENERATION (test code = 2821) FREE T4 (THYROXINE) 0.88 NG/DL 0.80-1.90 UNLESS OTHERWISE (test code = 2823) INDICATED , ALL TESTING PERFORMED [facility], [facility]. [address] [place] [id number] [facility] [place] DIRECTOR: LETTY MILLER M.D. CLIA NUMBER [id number] [facility] ACCREDITATION N O. [id number] TSH + FREE T4 [id number] 00:00:00 Test Item Value Reference Range Interpretation Comments TSH, THIRD GENERATION (test code 3.090 UIU/ML = 2821) FREE T4 (THYROXINE) (test code = 0.88 NG/DL 2823) TSH + FREE T4 [id number] 00:00:00 Test Item Value Reference Range Interpretation Comments TSH, THIRD GENERATION (test code 3.090 UIU/ML = 2821) FREE T4 (THYROXINE) (test code = 0.88 NG/DL 2823) TSH + FREE T4 [id number] 00:00:00 Test Item Value Reference Range Interpretation Comments TSH, THIRD GENERATION (test code 3.090 UIU/ML = 2821) FREE T4 (THYROXINE) (test code = 0.88 NG/DL 2823) TSH + FREE T4 [id number] 00:00:00 Test Item Value Reference Range Interpretation Comments TSH, THIRD GENERATION (test code 3.090 UIU/ML = 2821) FREE T4 (THYROXINE) (test code = 0.88 NG/DL 2823) TSH + FREE T4 [id number] 00:00:00 Test Item Value Reference Range Interpretation Comments TSH, THIRD GENERATION (test code 3.090 UIU/ML = 2821) FREE T4 (THYROXINE) (test code = 0.88 NG/DL 2823) TSH + FREE T4 [id number] 00:00:00 Test Item Value Reference Range Interpretation Comments TSH, THIRD GENERATION (test code 3.090 UIU/ML = 2821) FREE T4 (THYROXINE) (test code = 0.88 NG/DL 2823) TSH + FREE T4 [id number] 00:00:00 Test Item Value Reference Range Interpretation Comments TSH, THIRD GENERATION (test code 3.090 UIU/ML = 2821) FREE T4 (THYROXINE) (test code = 0.88 NG/DL 2823) TSH + FREE T4 [id number] 00:00:00 Test Item Value Reference Range Interpretation Comments TSH, THIRD GENERATION (test code 3.090 UIU/ML = 2821) FREE T4 (THYROXINE) (test code = 0.88 NG/DL 2823) TSH + FREE T4 [id number] 00:00:00 Test Item Value Reference Range Interpretation Comments TSH, THIRD GENERATION (test code 3.090 UIU/ML = 2821) FREE T4 (THYROXINE) (test code = 0.88 NG/DL 2823) TSH + FREE T4 [id number] 00:00:00 Test Item Value Reference Range Interpretation Comments TSH, THIRD GENERATION (test code 3.090 UIU/ML = 2821) FREE T4 (THYROXINE) (test code = 0.88 NG/DL 2823) TSH + FREE T4 [id number] 00:00:00 Test Item Value Reference Range Interpretation Comments TSH, THIRD GENERATION (test code 3.090 UIU/ML = 2821) FREE T4 (THYROXINE) (test code = 0.88 NG/DL 2823) TSH + FREE T4 [id number] 00:00:00 Test Item Value Reference Range Interpretation Comments TSH, THIRD GENERATION (test code 3.090 UIU/ML = 2821) FREE T4 (THYROXINE) (test code = 0.88 NG/DL 2823) TSH + FREE T4 [id number] 00:00:00 Test Item Value Reference Range Interpretation Comments TSH, THIRD GENERATION (test code 3.090 UIU/ML = 2821) FREE T4 (THYROXINE) (test code = 0.88 NG/DL 2823) TSH + FREE T4 [id number] 00:00:00 Test Item Value Reference Range Interpretation Comments TSH, THIRD GENERATION (test code 3.090 UIU/ML = 2821) FREE T4 (THYROXINE) (test code = 0.88 NG/DL 2823) TSH + FREE T4 [id number] 00:00:00 Test Item Value Reference Range Interpretation Comments TSH, THIRD GENERATION (test code 3.090 UIU/ML = 2821) FREE T4 (THYROXINE) (test code = 0.88 NG/DL 2823) TSH + FREE T4 [id number] 00:00:00 Test Item Value Reference Range Interpretation Comments TSH, THIRD GENERATION (test code 3.090 UIU/ML = 2821) FREE T4 (THYROXINE) (test code = 0.88 NG/DL 2823) TSH + FREE T4 [id number] 00:00:00 Test Item Value Reference Range Interpretation Comments TSH, THIRD GENERATION (test code 3.090 UIU/ML = 2821) FREE T4 (THYROXINE) (test code = 0.88 NG/DL 2823) CBC W/AUTO [id number] 00:00:00 Test Item Value Reference Range Interpretation [...] NUCLEATED RBCS (test code = 0.00 K/UL 59420) CBC W/AUTO [id number] 00:00:00 Test Item Value Reference Range Interpretation [...] NUCLEATED RBCS (test code = 0.00 K/UL 36383) COMPREHENSIVE METABOLIC [id number] 00:00:00 Test Item Value Reference Range Interpretation Comments GLUCOSE (test code = 2217) 128 MG/DL BUN (test code = 2208) 15 MG/DL CREATININE (test code = 2214) 0.64 MG/DL eGFR AMER. (test code 131 ML/MIN/1.73 = 74624) eGFR NON- AMER. (test 113 ML/MIN/1.73 code = 56422) CALC BUN/CREAT (test code = 23 RATIO [...] CALC GLOBULIN (test code = 2.1 G/DL 2239) CALC A/G RATIO (test code = 1.8 RATIO 2233) BILIRUBIN, TOTAL (test code = 0.6 MG/DL 2206) ALKALINE PHOSPHATASE (test 68 U/L code = 2204) AST (test code = 2218) 21 U/L ALT (test code = 2219) 37 U/L CBC W/AUTO [id number] 00:00:00 Test Item Value Reference Range Interpretation [...] NUCLEATED RBCS (test code = 0.00 K/UL 90179) HEMOGLOBIN [id number] 00:00:00 Test Item Value Reference Range Interpretation Comments HEMOGLOBIN A1c (test code = 37071) 8.4 % HEMOGLOBIN [id number] 00:00:00 Test Item Value Reference Range Interpretation Comments HEMOGLOBIN A1c (test code = 95794) 8.4 % HEMOGLOBIN [id number] 00:00:00 Test Item Value Reference Range Interpretation Comments HEMOGLOBIN A1c (test code = 65359) 8.4 % COMPREHENSIVE METABOLIC [id number] 00:00:00 Test Item Value Reference Range Interpretation Comments GLUCOSE (test code = 2217) 128 MG/DL BUN (test code = 2208) 15 MG/DL CREATININE (test code = 2214) 0.64 MG/DL eGFR AMER. (test code 131 ML/MIN/1.73 = 77493) eGFR NON- AMER. (test 113 ML/MIN/1.73 code = 84294) CALC BUN/CREAT (test code = 23 RATIO [...] CALC GLOBULIN (test code = 2.1 G/DL 2239) CALC A/G RATIO (test code = 1.8 RATIO 2234) BILIRUBIN, TOTAL (test code = 0.6 MG/DL 2206) ALKALINE PHOSPHATASE (test 68 U/L code = 2204) AST (test code = 2218) 21 U/L ALT (test code = 2219) 37 U/L COMPREHENSIVE METABOLIC [id number] 00:00:00 Test Item Value Reference Range Interpretation Comments GLUCOSE (test code = 2217) 128 MG/DL BUN (test code = 2208) 15 MG/DL CREATININE (test code = 2214) 0.64 MG/DL eGFR AMER. (test code 131 ML/MIN/1.73 = 31539) eGFR NON- AMER. (test 113 ML/MIN/1.73 code = 31495) CALC BUN/CREAT (test code = 23 RATIO [...] code = 2219) 37 U/L CBC W/AUTO [id number] 00:00:00 Test Item Value Reference Range Interpretation [...] NUCLEATED RBCS (test code = 0.00 K/UL 60798) CBC W/AUTO [id number] 00:00:00 Test Item Value Reference Range Interpretation [...] NUCLEATED RBCS (test code = 0.00 K/UL 62448) CBC W/AUTO [id number] 00:00:00 Test Item Value Reference Range Interpretation [...] NUCLEATED RBCS (test code = 0.00 K/UL 35204) HEMOGLOBIN [id number] 00:00:00 Test Item Value Reference Range Interpretation Comments HEMOGLOBIN A1c (test code = 30698) 8.4 % HEMOGLOBIN [id number] 00:00:00 Test Item Value Reference Range Interpretation Comments HEMOGLOBIN A1c (test code = 93688) 8.4 % HEMOGLOBIN [id number] 00:00:00 Test Item Value Reference Range Interpretation Comments HEMOGLOBIN A1c (test code = 07278) 8.4 % COMPREHENSIVE METABOLIC [id number] 00:00:00 Test Item Value Reference Range Interpretation Comments GLUCOSE (test code = 2217) 128 MG/DL BUN (test code = 2208) 15 MG/DL CREATININE (test code = 2214) 0.64 MG/DL eGFR AMER. (test code 131 ML/MIN/1.73 = 17236) eGFR NON- AMER. (test 113 ML/MIN/1.73 code = 37752) CALC BUN/CREAT (test code = 23 RATIO [...] code = 2219) 37 U/L COMPREHENSIVE METABOLIC [id number] 00:00:00 Test Item Value Reference Range Interpretation Comments GLUCOSE (test code = 2217) 128 MG/DL BUN (test code = 2208) 15 MG/DL CREATININE (test code = 2214) 0.64 MG/DL eGFR AMER. (test code 131 ML/MIN/1.73 = 49333) eGFR NON- AMER. (test 113 ML/MIN/1.73 code = 38790) CALC BUN/CREAT (test code = 23 RATIO [...] code = 2219) 37 U/L CBC W/AUTO [id number] 00:00:00 Test Item Value Reference Range Interpretation [...] NUCLEATED RBCS (test code = 0.00 K/UL 46821) CBC W/AUTO [id number] 00:00:00 Test Item Value Reference Range Interpretation [...] NUCLEATED RBCS (test code = 0.00 K/UL 23992) CBC W/AUTO [id number] 00:00:00 Test Item Value Reference Range Interpretation [...] NUCLEATED RBCS (test code = 0.00 K/UL 06778) HEMOGLOBIN [id number] 00:00:00 Test Item Value Reference Range Interpretation Comments HEMOGLOBIN A1c (test code = 91888) 8.4 % HEMOGLOBIN [id number] 00:00:00 Test Item Value Reference Range Interpretation Comments HEMOGLOBIN A1c (test code = 07164) 8.4 % HEMOGLOBIN [id number] 00:00:00 Test Item Value Reference Range Interpretation Comments HEMOGLOBIN A1c (test code = 83789) 8.4 % COMPREHENSIVE METABOLIC [id number] 00:00:00 Test Item Value Reference Range Interpretation Comments GLUCOSE (test code = 2217) 128 MG/DL BUN (test code = 2208) 15 MG/DL CREATININE (test code = 2214) 0.64 MG/DL eGFR AMER. (test code 131 ML/MIN/1.73 = 88558) eGFR NON- AMER. (test 113 ML/MIN/1.73 code = 69220) CALC BUN/CREAT (test code = 23 RATIO 2235) SODIUM (test code = 2231) 140 MEQ/L POTASSIUM (test code = 2228) 4.2 MEQ/L CHLORIDE (test code = 2215) 105 MEQ/L CARBON DIOXIDE (test code = 22 MEQ/L 2206) CALCIUM (test code = 2209) 8.8 MG/DL PROTEIN, TOTAL (test code = 5.9 G/DL 222) ALBUMIN (test code = 2201) 3.8 G/DL CALC GLOBULIN (test code = 2.1 G/DL 2240) CALC A/G RATIO (test code = 1.8 RATIO 2234) BILIRUBIN, TOTAL (test code = 0.6 MG/DL 2206) ALKALINE PHOSPHATASE (test 68 U/L code = 220) AST (test code = 2218) 21 U/L ALT (test code = 2219) 37 U/L COMPREHENSIVE METABOLIC [id number] 00:00:00 Test Item Value Reference Range Interpretation Comments GLUCOSE (test code = 2217) 128 MG/DL BUN (test code = 2208) 15 MG/DL CREATININE (test code = 2214) 0.64 MG/DL eGFR AMER. (test code 131 ML/MIN/1.73 = 70658) eGFR NON- AMER. (test 113 ML/MIN/1.73 code = 93205) CALC BUN/CREAT (test code = 23 RATIO [...] code = 2219) 37 U/L CBC W/AUTO [id number] 00:00:00 Test Item Value Reference Range Interpretation [...] NUCLEATED RBCS (test code = 0.00 K/UL 00611) CBC W/AUTO [id number] 00:00:00 Test Item Value Reference Range Interpretation [...] NUCLEATED RBCS (test code = 0.00 K/UL 88570) CBC W/AUTO [id number] 00:00:00 Test Item Value Reference Range Interpretation [...] NUCLEATED RBCS (test code = 0.00 K/UL 98519) HEMOGLOBIN [id number] 00:00:00 Test Item Value Reference Range Interpretation Comments HEMOGLOBIN A1c (test code = 00000) 8.4 % HEMOGLOBIN [id number] 00:00:00 Test Item Value Reference Range Interpretation Comments HEMOGLOBIN A1c (test code = 77652) 8.4 % HEMOGLOBIN [id number] 00:00:00 Test Item Value Reference Range Interpretation Comments HEMOGLOBIN A1c (test code = 65739) 8.4 % COMPREHENSIVE METABOLIC [id number] 00:00:00 Test Item Value Reference Range Interpretation Comments GLUCOSE (test code = 2217) 128 MG/DL BUN (test code = 2208) 15 MG/DL CREATININE (test code = 2214) 0.64 MG/DL eGFR AMER. (test code 131 ML/MIN/1.73 = 71847) eGFR NON- AMER. (test 113 ML/MIN/1.73 code = 88006) CALC BUN/CREAT (test code = 23 RATIO [...] code = 2219) 37 U/L COMPREHENSIVE METABOLIC [id number] 00:00:00 Test Item Value Reference Range Interpretation Comments GLUCOSE (test code = 2217) 128 MG/DL BUN (test code = 2208) 15 MG/DL CREATININE (test code = 2214) 0.64 MG/DL eGFR AMER. (test code 131 ML/MIN/1.73 = 46150) eGFR NON- AMER. (test 113 ML/MIN/1.73 code = 49549) CALC BUN/CREAT (test code = 23 RATIO [...] A/G RATIO (test code = 1.8 RATIO 223) BILIRUBIN, TOTAL (test code = 0.6 MG/DL 2206) ALKALINE PHOSPHATASE (test 68 U/L code = 2204) AST (test code = 2218) 21 U/L ALT (test code = 2219) 37 U/L CBC W/AUTO [id number] 00:00:00 Test Item Value Reference Range Interpretation [...] NUCLEATED RBCS (test code = 0.00 K/UL 48526) CBC W/AUTO [id number] 00:00:00 Test Item Value Reference Range Interpretation [...] NUCLEATED RBCS (test code = 0.00 K/UL 43439) CBC W/AUTO [id number] 00:00:00 Test Item Value Reference Range Interpretation [...] NUCLEATED RBCS (test code = 0.00 K/UL 01690) CBC W/AUTO [id number] 00:00:00 Test Item Value Reference Range Interpretation [...] NUCLEATED RBCS (test code = 0.00 K/UL 55061) HEMOGLOBIN [id number] 00:00:00 Test Item Value Reference Range Interpretation Comments HEMOGLOBIN A1c (test code = 92278) 8.4 % HEMOGLOBIN [id number] 00:00:00 Test Item Value Reference Range Interpretation Comments HEMOGLOBIN A1c (test code = 89443) 8.4 % HEMOGLOBIN [id number] 00:00:00 Test Item Value Reference Range Interpretation Comments HEMOGLOBIN A1c (test code = 89829) 8.4 % COMPREHENSIVE METABOLIC [id number] 00:00:00 Test Item Value Reference Range Interpretation Comments GLUCOSE (test code = 2217) 128 MG/DL BUN (test code = 2208) 15 MG/DL CREATININE (test code = 2214) 0.64 MG/DL eGFR AMER. (test code 131 ML/MIN/1.73 = 19853) eGFR NON- AMER. (test 113 ML/MIN/1.73 code = 13336) CALC BUN/CREAT (test code = 23 RATIO [...] code = 2219) 37 U/L COMPREHENSIVE METABOLIC [id number] 00:00:00 Test Item Value Reference Range Interpretation Comments GLUCOSE (test code = 2217) 128 MG/DL BUN (test code = 2208) 15 MG/DL CREATININE (test code = 2214) 0.64 MG/DL eGFR AMER. (test code 131 ML/MIN/1.73 = 35154) eGFR NON- AMER. (test 113 ML/MIN/1.73 code = 63968) CALC BUN/CREAT (test code = 23 RATIO [...] A/G RATIO (test code = 1.8 RATIO 223) BILIRUBIN, TOTAL (test code = 0.6 MG/DL 2206) ALKALINE PHOSPHATASE (test 68 U/L code = 2204) AST (test code = 2218) 21 U/L ALT (test code = 2219) 37 U/L CBC W/AUTO [id number] 00:00:00 Test Item Value Reference Range Interpretation [...] NUCLEATED RBCS (test code = 0.00 K/UL 29849) HEMOGLOBIN [id number] 00:00:00 Test Item Value Reference Range Interpretation Comments HEMOGLOBIN A1c (test code = 38126) 8.4 % HEMOGLOBIN [id number] 00:00:00 Test Item Value Reference Range Interpretation Comments HEMOGLOBIN A1c (test code = 80031) 8.4 % HPV HIGH RISK WITH GENOTYPE, [id number] 00:00:00 Test Item Value Reference Range Interpretation Comments HPV HIGH RISK INTERP (test code = NEGATIVE 93030) HPV 16 (test code = 79127) NEGATIVE HPV 18 (test code = 48253) NEGATIVE HPV, HR, OTHER GENOTYPES (test code NEGATIVE = 28792) PAP TEST, THINPREP, [id number] 00:00:00 Test Item Value Reference Range Interpretation Comments SOURCE: (test code = Cervical/Endocervical 8001) SLIDES: (test code = 1 8011) LMP: (test code = 8021) 09/25/2020 SPECIMEN ADEQUACY: (test (NOTE) code = 44622) INTERPRETATION: (test NILM/NO EPITH. code = 01729) ABNORMALITY;SEE BELOW BUSINESS SYSTEMS ADVISOR: (test RAMY Turcios (ASCP) code = 8101) LOCATION: (test code = (NOTE) 26405) CPT: (test code = 8140) (NOTE) PAP TEST, THINPREP, [id number] 00:00:00 Test Item Value Reference Range Interpretation Comments SOURCE: (test code = Cervical/Endocervical 8001) SLIDES: (test code = 1 8011) LMP: (test code = 8021) 09/25/2020 SPECIMEN ADEQUACY: (test (NOTE) code = 39929) INTERPRETATION: (test NILM/NO EPITH. code = 29143) ABNORMALITY;SEE BELOW BUSINESS SYSTEMS ADVISOR: (test RAMY Turcios (ASCP) code = 8101) LOCATION: (test code = (NOTE) 09154) CPT: (test code = 8140) (NOTE) HPV HIGH RISK WITH GENOTYPE, [id number] 00:00:00 Test Item Value Reference Range Interpretation Comments HPV HIGH RISK INTERP (test code = NEGATIVE 03181) HPV 16 (test code = 33067) NEGATIVE HPV 18 (test code = 95292) NEGATIVE HPV, HR, OTHER GENOTYPES (test code NEGATIVE = 79547) HPV HIGH RISK WITH GENOTYPE, [id number] 00:00:00 Test Item Value Reference Range Interpretation Comments HPV HIGH RISK INTERP (test code = NEGATIVE 49727) HPV 16 (test code = 05779) NEGATIVE HPV 18 (test code = 53298) NEGATIVE HPV, HR, OTHER GENOTYPES (test code NEGATIVE = 94830) PAP TEST, THINPREP, [id number] 00:00:00 Test Item Value Reference Range Interpretation Comments SOURCE: (test code = Cervical/Endocervical 8001) SLIDES: (test code = 1 8011) LMP: (test code = 8021) 09/25/2020 SPECIMEN ADEQUACY: (test (NOTE) code = 22034) INTERPRETATION: (test NILM/NO EPITH. code = 99252) ABNORMALITY;SEE BELOW BUSINESS SYSTEMS ADVISOR: (test Geneva Leal CT (ASCP) code = 8101) LOCATION: (test code = (NOTE) 60908) CPT: (test code = 8140) (NOTE) PAP TEST, THINPREP, [id number] 00:00:00 Test Item Value Reference Range Interpretation Comments SOURCE: (test code = Cervical/Endocervical 8001) SLIDES: (test code = 1 8011) LMP: (test code = 8021) 09/25/2020 SPECIMEN ADEQUACY: (test (NOTE) code = 06537) INTERPRETATION: (test NILM/NO EPITH. code = 96541) ABNORMALITY;SEE BELOW BUSINESS SYSTEMS ADVISOR: (test Geneva Leal CT (ASCP) code = 8101) LOCATION: (test code = (NOTE) 45427) CPT: (test code = 8140) (NOTE) HPV HIGH RISK WITH GENOTYPE, [id number] 00:00:00 Test Item Value Reference Range Interpretation Comments HPV HIGH RISK INTERP (test code = NEGATIVE 74078) HPV 16 (test code = 06710) NEGATIVE HPV 18 (test code = 54118) NEGATIVE HPV, HR, OTHER GENOTYPES (test code NEGATIVE = 94370) HPV HIGH RISK WITH GENOTYPE, [id number] 00:00:00 Test Item Value Reference Range Interpretation Comments HPV HIGH RISK INTERP (test code = NEGATIVE 56978) HPV 16 (test code = 65145) NEGATIVE HPV 18 (test code = 53520) NEGATIVE HPV, HR, OTHER GENOTYPES (test code NEGATIVE = 49616) PAP TEST, THINPREP, [id number] 00:00:00 Test Item Value Reference Range Interpretation Comments SOURCE: (test code = Cervical/Endocervical 8001) SLIDES: (test code = 1 8011) LMP: (test code = 8021) 09/25/2020 SPECIMEN ADEQUACY: (test (NOTE) code = 81560) INTERPRETATION: (test NILM/NO EPITH. code = 95644) ABNORMALITY;SEE BELOW BUSINESS SYSTEMS ADVISOR: (test Geneva Leal CT (ASCP) code = 8101) LOCATION: (test code = (NOTE) 12138) CPT: (test code = 8140) (NOTE) PAP TEST, THINPREP, [id number] 00:00:00 Test Item Value Reference Range Interpretation Comments SOURCE: (test code = Cervical/Endocervical 8001) SLIDES: (test code = 1 8011) LMP: (test code = 8021) 09/25/2020 SPECIMEN ADEQUACY: (test (NOTE) code = 56570) INTERPRETATION: (test NILM/NO EPITH. code = 96281) ABNORMALITY;SEE BELOW BUSINESS SYSTEMS ADVISOR: (test Geneva Leal CT (ASCP) code = 8101) LOCATION: (test code = (NOTE) 70898) CPT: (test code = 8140) (NOTE) HPV HIGH RISK WITH GENOTYPE, [id number] 00:00:00 Test Item Value Reference Range Interpretation Comments HPV HIGH RISK INTERP (test code = NEGATIVE 07188) HPV 16 (test code = 69558) NEGATIVE HPV 18 (test code = 15561) NEGATIVE HPV, HR, OTHER GENOTYPES (test code NEGATIVE = 61235) HPV HIGH RISK WITH GENOTYPE, [id number] 00:00:00 Test Item Value Reference Range Interpretation Comments HPV HIGH RISK INTERP (test code = NEGATIVE 20913) HPV 16 (test code = 72387) NEGATIVE HPV 18 (test code = 54011) NEGATIVE HPV, HR, OTHER GENOTYPES (test code NEGATIVE = 77433) PAP TEST, THINPREP, [id number] 00:00:00 Test Item Value Reference Range Interpretation Comments SOURCE: (test code = Cervical/Endocervical 8001) SLIDES: (test code = 1 8011) LMP: (test code = 8021) 09/25/2020 SPECIMEN ADEQUACY: (test (NOTE) code = 00250) INTERPRETATION: (test NILM/NO EPITH. code = 31616) ABNORMALITY;SEE BELOW BUSINESS SYSTEMS ADVISOR: (test Geneva Leal, CT (ASCP) code = 8101) LOCATION: (test code = (NOTE) 44022) CPT: (test code = 8140) (NOTE) PAP TEST, THINPREP, [id number] 00:00:00 Test Item Value Reference Range Interpretation Comments SOURCE: (test code = Cervical/Endocervical 8001) SLIDES: (test code = 1 8011) LMP: (test code = 8021) 09/25/2020 SPECIMEN ADEQUACY: (test (NOTE) code = 76885) INTERPRETATION: (test NILM/NO EPITH. code = 66805) ABNORMALITY;SEE BELOW BUSINESS SYSTEMS ADVISOR: (test Geneva Leal CT (ASCP) code = 8101) LOCATION: (test code = (NOTE) 15404) CPT: (test code = 8140) (NOTE) HPV HIGH RISK WITH GENOTYPE, [id number] 00:00:00 Test Item Value Reference Range Interpretation Comments HPV HIGH RISK INTERP (test code = NEGATIVE 12871) HPV 16 (test code = 21552) NEGATIVE HPV 18 (test code = 00641) NEGATIVE HPV, HR, OTHER GENOTYPES (test code NEGATIVE = 38686) HPV HIGH RISK WITH GENOTYPE, [id number] 00:00:00 Test Item Value Reference Range Interpretation Comments HPV HIGH RISK INTERP (test code = NEGATIVE 96578) HPV 16 (test code = 67029) NEGATIVE HPV 18 (test code = 96261) NEGATIVE HPV, HR, OTHER GENOTYPES (test code NEGATIVE = 75989) PAP TEST, THINPREP, [id number] 00:00:00 Test Item Value Reference Range Interpretation Comments SOURCE: (test code = Cervical/Endocervical 8001) SLIDES: (test code = 1 8011) LMP: (test code = 8021) 09/25/2020 SPECIMEN ADEQUACY: (test (NOTE) code = 61646) INTERPRETATION: (test NILM/NO EPITH. code = 94672) ABNORMALITY;SEE BELOW BUSINESS SYSTEMS ADVISOR: (test RAMY Turcios (ASCP) code = 8101) LOCATION: (test code = (NOTE) 25152) CPT: (test code = 8140) (NOTE) PAP TEST, THINPREP, [id number] 00:00:00 Test Item Value Reference Range Interpretation Comments SOURCE: (test code = Cervical/Endocervical 8001) SLIDES: (test code = 1 8011) LMP: (test code = 8021) 09/25/2020 SPECIMEN ADEQUACY: (test (NOTE) code = 78582) INTERPRETATION: (test NILM/NO EPITH. code = 95288) ABNORMALITY;SEE BELOW BUSINESS SYSTEMS ADVISOR: (test RAMY Turcios (ASCP) code = 8101) LOCATION: (test code = (NOTE) 61206) CPT: (test code = 8140) (NOTE) HPV HIGH RISK WITH GENOTYPE, [id number] 00:00:00 Test Item Value Reference Range Interpretation Comments HPV HIGH RISK INTERP (test code = NEGATIVE 11809) HPV 16 (test code = 31782) NEGATIVE HPV 18 (test code = 64194) NEGATIVE HPV, HR, OTHER GENOTYPES (test code NEGATIVE = 17632) PAP TEST, THINPREP, [id number] 00:00:00 Test Item Value Reference Range Interpretation Comments SOURCE: (test code = Cervical/Endocervical 8001) SLIDES: (test code = 1 8011) LMP: (test code = 8021) 09/25/2020 SPECIMEN ADEQUACY: (test (NOTE) code = 98923) INTERPRETATION: (test NILM/NO EPITH. code = 13927) ABNORMALITY;SEE BELOW BUSINESS SYSTEMS ADVISOR: (test RAMY Turcios (ASCP) code = 8101) LOCATION: (test code = (NOTE) 98610) CPT: (test code = 8140) (NOTE) HPV HIGH RISK WITH GENOTYPE, [id number] 00:00:00 Test Item Value Reference Range Interpretation Comments HPV HIGH RISK INTERP (test code = NEGATIVE 80195) HPV 16 (test code = 24508) NEGATIVE HPV 18 (test code = 16135) NEGATIVE HPV, HR, OTHER GENOTYPES (test code NEGATIVE = 99807) [id number] 00:00:00 Test Item Value Reference Range Interpretation Comments TSH, THIRD GENERATION (test code 5.170 UIU/ML = 2821) CBC W/AUTO [id number] 00:00:00 Test Item Value Reference Range Interpretation [...] code = 1015) 275 K/UL CBC W/AUTO [id number] 00:00:00 Test Item Value Reference Range Interpretation [...] code = 1015) 275 K/UL CBC W/AUTO [id number] 00:00:00 Test Item Value Reference Range Interpretation [...] COUNT (test code = 1015) 275 K/UL [id number] 00:00:00 Test Item Value Reference Range Interpretation Comments TSH, THIRD GENERATION (test code 5.170 UIU/ML = 2821) [id number] 00:00:00 Test Item Value Reference Range Interpretation Comments TSH, THIRD GENERATION (test code 5.170 UIU/ML = 2821) [id number] 00:00:00 Test Item Value Reference Range Interpretation Comments TSH, THIRD GENERATION (test code 5.170 UIU/ML = 2821) CBC W/AUTO [id number] 00:00:00 Test Item Value Reference Range Interpretation [...] code = 1015) 275 K/UL CBC W/AUTO [id number] 00:00:00 Test Item Value Reference Range Interpretation [...] code = 1015) 275 K/UL CBC W/AUTO [id number] 00:00:00 Test Item Value Reference Range Interpretation [...] COUNT (test code = 1015) 275 K/UL [id number] 00:00:00 Test Item Value Reference Range Interpretation Comments TSH, THIRD GENERATION (test code 5.170 UIU/ML = 2821) [id number] 00:00:00 Test Item Value Reference Range Interpretation Comments TSH, THIRD GENERATION (test code 5.170 UIU/ML = 2821) [id number] 00:00:00 Test Item Value Reference Range Interpretation Comments TSH, THIRD GENERATION (test code 5.170 UIU/ML = 2821) CBC W/AUTO [id number] 00:00:00 Test Item Value Reference Range Interpretation [...] code = 1015) 275 K/UL CBC W/AUTO [id number] 00:00:00 Test Item Value Reference Range Interpretation [...] code = 1015) 275 K/UL CBC W/AUTO [id number] 00:00:00 Test Item Value Reference Range Interpretation [...] COUNT (test code = 1015) 275 K/UL [id number] 00:00:00 Test Item Value Reference Range Interpretation Comments TSH, THIRD GENERATION (test code 5.170 UIU/ML = 2821) [id number] 00:00:00 Test Item Value Reference Range Interpretation Comments TSH, THIRD GENERATION (test code 5.170 UIU/ML = 2821) [id number] 00:00:00 Test Item Value Reference Range Interpretation Comments TSH, THIRD GENERATION (test code 5.170 UIU/ML = 2821) CBC W/AUTO [id number] 00:00:00 Test Item Value Reference Range Interpretation [...] code = 1015) 275 K/UL CBC W/AUTO [id number] 00:00:00 Test Item Value Reference Range Interpretation [...] code = 1015) 275 K/UL CBC W/AUTO [id number] 00:00:00 Test Item Value Reference Range Interpretation [...] COUNT (test code = 1015) 275 K/UL [id number] 00:00:00 Test Item Value Reference Range Interpretation Comments TSH, THIRD GENERATION (test code 5.170 UIU/ML = 2821) [id number] 00:00:00 Test Item Value Reference Range Interpretation Comments TSH, THIRD GENERATION (test code 5.170 UIU/ML = 2821) [id number] 00:00:00 Test Item Value Reference Range Interpretation Comments TSH, THIRD GENERATION (test code 5.170 UIU/ML = 2821) CBC W/AUTO [id number] 00:00:00 Test Item Value Reference Range Interpretation [...] code = 1015) 275 K/UL CBC W/AUTO [id number] 00:00:00 Test Item Value Reference Range Interpretation [...] code = 1015) 275 K/UL CBC W/AUTO [id number] 00:00:00 Test Item Value Reference Range Interpretation [...] code = 1015) 275 K/UL CBC W/AUTO [id number] 00:00:00 Test Item Value Reference Range Interpretation [...] COUNT (test code = 1015) 275 K/UL [id number] 00:00:00 Test Item Value Reference Range Interpretation Comments TSH, THIRD GENERATION (test code 5.170 UIU/ML = 2821) [id number] 00:00:00 Test Item Value Reference Range Interpretation Comments TSH, THIRD GENERATION (test code 5.170 UIU/ML = 2821) [id number] 00:00:00 Test Item Value Reference Range Interpretation Comments TSH, THIRD GENERATION (test code 5.170 UIU/ML = 2821) CBC W/AUTO [id number] 00:00:00 Test Item Value Reference Range Interpretation [...] COUNT (test code = 1015) 275 K/UL [id number] 00:00:00 Test Item Value Reference Range Interpretation Comments TSH, THIRD GENERATION (test code 5.170 UIU/ML = 2821) CBC W/AUTO [id number] 00:00:00 Test Item Value Reference Range Interpretation [...] code = 2821) 0.44 UIU/ML CBC W/AUTO [id number] 00:00:00 Test Item Value Reference Range Interpretation [...] (test code = 1016) (NOTE) CBC W/AUTO [id number] 00:00:00 Test Item Value Reference Range Interpretation [...] (test code = 1016) (NOTE) CBC W/AUTO [id number] 00:00:00 Test Item Value Reference Range Interpretation [...] code = 2821) 0.44 UIU/ML CBC W/AUTO [id number] 00:00:00 Test Item Value Reference Range Interpretation [...] (test code = 1016) (NOTE) CBC W/AUTO [id number] 00:00:00 Test Item Value Reference Range Interpretation [...] (test code = 1016) (NOTE) CBC W/AUTO [id number] 00:00:00 Test Item Value Reference Range Interpretation [...] code = 2821) 0.44 UIU/ML CBC W/AUTO [id number] 00:00:00 Test Item Value Reference Range Interpretation [...] (test code = 1016) (NOTE) CBC W/AUTO [id number] 00:00:00 Test Item Value Reference Range Interpretation [...] (test code = 1016) (NOTE) CBC W/AUTO [id number] 00:00:00 Test Item Value Reference Range Interpretation [...] code = 2821) 0.44 UIU/ML CBC W/AUTO [id number] 00:00:00 Test Item Value Reference Range Interpretation [...] (test code = 1016) (NOTE) CBC W/AUTO [id number] 00:00:00 Test Item Value Reference Range Interpretation [...] (test code = 1016) (NOTE) CBC W/AUTO [id number] 00:00:00 Test Item Value Reference Range Interpretation [...] code = 2821) 0.44 UIU/ML CBC W/AUTO [id number] 00:00:00 Test Item Value Reference Range Interpretation [...] (test code = 1016) (NOTE) CBC W/AUTO [id number] 00:00:00 Test Item Value Reference Range Interpretation [...] (test code = 1016) (NOTE) CBC W/AUTO [id number] 00:00:00 Test Item Value Reference Range Interpretation [...] code = 2821) 0.44 UIU/ML CBC W/AUTO [id number] 00:00:00 Test Item Value Reference Range Interpretation [...] IRON BINDING CAPACITY AND IRON AND % [id number] 00:00:00 Test Item Value Reference Range Interpretation Comments IRON, SERUM (test code = 2) 12 UG/DL UNSATURATED IBC (test code = ) 496 UG/DL CALC TOTAL IBC (test code = 2076) 508 UG/DL CALC % IRON SAT (test code = 2078) 2 % CBC W/AUTO [id number] 00:00:00 Test Item Value Reference Range Interpretation [...] K/UL COMMENTS (test code = 1016) (NOTE) [id number] 00:00:00 Test Item Value Reference Range Interpretation Comments FERRITIN (test code = 2074) 2 NG/ML [id number] 00:00:00 Test Item Value Reference Range Interpretation Comments FERRITIN (test code = 2074) 2 NG/ML IRON BINDING CAPACITY AND IRON AND % [id number] 00:00:00 Test Item Value Reference Range Interpretation Comments IRON, SERUM (test code = 2) 12 UG/DL UNSATURATED IBC (test code = 86735) 496 UG/DL CALC TOTAL IBC (test code = 2076) 508 UG/DL CALC % IRON SAT (test code = 2078) 2 % CBC W/AUTO [id number] 00:00:00 Test Item Value Reference Range Interpretation [...] IRON BINDING CAPACITY AND IRON AND % [id number] 00:00:00 Test Item Value Reference Range Interpretation Comments IRON, SERUM (test code = 2222) 12 UG/DL UNSATURATED IBC (test code = ) 496 UG/DL CALC TOTAL IBC (test code = 2076) 508 UG/DL CALC % IRON SAT (test code = 2078) 2 % CBC W/AUTO [id number] 00:00:00 Test Item Value Reference Range Interpretation [...] (test code = 1016) (NOTE) CBC W/AUTO [id number] 00:00:00 Test Item Value Reference Range Interpretation [...] (test code = 1016) (NOTE) CBC W/AUTO [id number] 00:00:00 Test Item Value Reference Range Interpretation [...] K/UL COMMENTS (test code = 1016) (NOTE) [id number] 00:00:00 Test Item Value Reference Range Interpretation Comments TSH (test code = 2821) 5.4 UIU/ML [id number] 00:00:00 Test Item Value Reference Range Interpretation Comments TSH (test code = 2821) 5.4 UIU/ML [id number] 00:00:00 Test Item Value Reference Range Interpretation Comments TSH (test code = 2821) 5.4 UIU/ML [id number] 00:00:00 Test Item Value Reference Range Interpretation Comments TSH (test code = 2821) 5.4 UIU/ML [id number] 00:00:00 Test Item Value Reference Range Interpretation Comments TSH (test code = 2821) 5.4 UIU/ML [id number] 00:00:00 Test Item Value Reference Range Interpretation Comments FERRITIN (test code = 2074) 2 NG/ML [id number] 00:00:00 Test Item Value Reference Range Interpretation Comments FERRITIN (test code = 5) 2 NG/ML IRON BINDING CAPACITY AND IRON AND % [id number] 00:00:00 Test Item Value Reference Range Interpretation Comments IRON, SERUM (test code = 2221) 12 UG/DL UNSATURATED IBC (test code = ) 496 UG/DL CALC TOTAL IBC (test code = 2076) 508 UG/DL CALC % IRON SAT (test code = 2078) 2 % IRON BINDING CAPACITY AND IRON AND % [id number] 00:00:00 Test Item Value Reference Range Interpretation Comments IRON, SERUM (test code = 2221) 12 UG/DL UNSATURATED IBC (test code = ) 496 UG/DL CALC TOTAL IBC (test code = 2076) 508 UG/DL CALC % IRON SAT (test code = 2078) 2 % CBC W/AUTO [id number] 00:00:00 Test Item Value Reference Range Interpretation [...] (test code = 1016) (NOTE) CBC W/AUTO [id number] 00:00:00 Test Item Value Reference Range Interpretation [...] (test code = 1016) (NOTE) CBC W/AUTO [id number] 00:00:00 Test Item Value Reference Range Interpretation [...] K/UL COMMENTS (test code = 1016) (NOTE) [id number] 00:00:00 Test Item Value Reference Range Interpretation Comments TSH (test code = 2821) 5.4 UIU/ML [id number] 00:00:00 Test Item Value Reference Range Interpretation Comments TSH (test code = 2821) 5.4 UIU/ML [id number] 00:00:00 Test Item Value Reference Range Interpretation Comments TSH (test code = 2821) 5.4 UIU/ML [id number] 00:00:00 Test Item Value Reference Range Interpretation Comments FERRITIN (test code = 2074) 2 NG/ML [id number] 00:00:00 Test Item Value Reference Range Interpretation Comments FERRITIN (test code = 2074) 2 NG/ML IRON BINDING CAPACITY AND IRON AND % [id number] 00:00:00 Test Item Value Reference Range Interpretation Comments IRON, SERUM (test code = 2221) 12 UG/DL UNSATURATED IBC (test code = 60701) 496 UG/DL CALC TOTAL IBC (test code = 2076) 508 UG/DL CALC % IRON SAT (test code = 2078) 2 % IRON BINDING CAPACITY AND IRON AND % [id number] 00:00:00 Test Item Value Reference Range Interpretation Comments IRON, SERUM (test code = 2221) 12 UG/DL UNSATURATED IBC (test code = 36367) 496 UG/DL CALC TOTAL IBC (test code = 2076) 508 UG/DL CALC % IRON SAT (test code = 2078) 2 % CBC W/AUTO [id number] 00:00:00 Test Item Value Reference Range Interpretation [...] (test code = 1016) (NOTE) CBC W/AUTO [id number] 00:00:00 Test Item Value Reference Range Interpretation [...] (test code = 1016) (NOTE) CBC W/AUTO [id number] 00:00:00 Test Item Value Reference Range Interpretation [...] K/UL COMMENTS (test code = 1016) (NOTE) [id number] 00:00:00 Test Item Value Reference Range Interpretation Comments TSH (test code = 2821) 5.4 UIU/ML [id number] 00:00:00 Test Item Value Reference Range Interpretation Comments TSH (test code = 2821) 5.4 UIU/ML [id number] 00:00:00 Test Item Value Reference Range Interpretation Comments TSH (test code = 2821) 5.4 UIU/ML [id number] 00:00:00 Test Item Value Reference Range Interpretation Comments FERRITIN (test code = 5) 2 NG/ML [id number] 00:00:00 Test Item Value Reference Range Interpretation Comments FERRITIN (test code = 5) 2 NG/ML IRON BINDING CAPACITY AND IRON AND % [id number] 00:00:00 Test Item Value Reference Range Interpretation Comments IRON, SERUM (test code = 2) 12 UG/DL UNSATURATED IBC (test code = 38429) 496 UG/DL CALC TOTAL IBC (test code = 7) 508 UG/DL CALC % IRON SAT (test code = 9) 2 % IRON BINDING CAPACITY AND IRON AND % [id number] 00:00:00 Test Item Value Reference Range Interpretation Comments IRON, SERUM (test code = 2222) 12 UG/DL UNSATURATED IBC (test code = 75142) 496 UG/DL CALC TOTAL IBC (test code = 7) 508 UG/DL CALC % IRON SAT (test code = 9) 2 % CBC W/AUTO [id number] 00:00:00 Test Item Value Reference Range Interpretation [...] (test code = 1016) (NOTE) CBC W/AUTO [id number] 00:00:00 Test Item Value Reference Range Interpretation [...] (test code = 1016) (NOTE) CBC W/AUTO [id number] 00:00:00 Test Item Value Reference Range Interpretation [...] K/UL COMMENTS (test code = 1016) (NOTE) [id number] 00:00:00 Test Item Value Reference Range Interpretation Comments TSH (test code = 2821) 5.4 UIU/ML [id number] 00:00:00 Test Item Value Reference Range Interpretation Comments TSH (test code = 2821) 5.4 UIU/ML [id number] 00:00:00 Test Item Value Reference Range Interpretation Comments TSH (test code = 2821) 5.4 UIU/ML [id number] 00:00:00 Test Item Value Reference Range Interpretation Comments FERRITIN (test code = 2074) 2 NG/ML [id number] 00:00:00 Test Item Value Reference Range Interpretation Comments FERRITIN (test code = 2074) 2 NG/ML IRON BINDING CAPACITY AND IRON AND % [id number] 00:00:00 Test Item Value Reference Range Interpretation Comments IRON, SERUM (test code = 2221) 12 UG/DL UNSATURATED IBC (test code = 05674) 496 UG/DL CALC TOTAL IBC (test code = 2076) 508 UG/DL CALC % IRON SAT (test code = 2078) 2 % IRON BINDING CAPACITY AND IRON AND % [id number] 00:00:00 Test Item Value Reference Range Interpretation Comments IRON, SERUM (test code = 2221) 12 UG/DL UNSATURATED IBC (test code = 59318) 496 UG/DL CALC TOTAL IBC (test code = 2076) 508 UG/DL CALC % IRON SAT (test code = 2078) 2 % CBC W/AUTO [id number] 00:00:00 Test Item Value Reference Range Interpretation [...] (test code = 1016) (NOTE) CBC W/AUTO [id number] 00:00:00 Test Item Value Reference Range Interpretation [...] K/UL COMMENTS (test code = 1016) (NOTE) [id number] 00:00:00 Test Item Value Reference Range Interpretation Comments FERRITIN (test code = 2075) 2 NG/ML CBC W/AUTO [id number] 00:00:00 Test Item Value Reference Range Interpretation [...] K/UL COMMENTS (test code = 1016) (NOTE) [id number] 00:00:00 Test Item Value Reference Range Interpretation Comments TSH (test code = 2821) 5.4 UIU/ML [id number] 00:00:00 Test Item Value Reference Range Interpretation Comments TSH (test code = 2821) 5.4 UIU/ML [id number] 00:00:00 Test Item Value Reference Range Interpretation Comments TSH (test code = 2821) 5.4 UIU/ML GLYCATED HEMOGLOBIN [REFLEX]2016-08-26 00:00:00 Test Item Value Reference Range Interpretation Comments GLYCATED HEMOGLOBIN (test code = 4.5 % 25196) AVERAGE BLOOD GLUCOSE (test code = 82 mg/dL 70534) GLYCATED HEMOGLOBIN [REFLEX]2016-08-26 00:00:00 Test Item Value Reference Range Interpretation Comments GLYCATED HEMOGLOBIN (test code = 4.5 % 59366) AVERAGE BLOOD GLUCOSE (test code = 82 mg/dL 45451) GLYCATED HEMOGLOBIN [REFLEX]2016-08-26 00:00:00 Test Item Value Reference Range Interpretation Comments GLYCATED HEMOGLOBIN (test code = 4.5 % 19256) AVERAGE BLOOD GLUCOSE (test code = 82 mg/dL 94684) GLYCATED HEMOGLOBIN [REFLEX]2016-08-26 00:00:00 Test Item Value Reference Range Interpretation Comments GLYCATED HEMOGLOBIN (test code = 4.5 % 80461) AVERAGE BLOOD GLUCOSE (test code = 82 mg/dL 98205) GLYCATED HEMOGLOBIN [REFLEX]2016-08-26 00:00:00 Test Item Value Reference Range Interpretation Comments GLYCATED HEMOGLOBIN (test code = 4.5 % 82993) AVERAGE BLOOD GLUCOSE (test code = 82 mg/dL 58667) GLYCATED HEMOGLOBIN [REFLEX]2016-08-26 00:00:00 Test Item Value Reference Range Interpretation Comments GLYCATED HEMOGLOBIN (test code = 4.5 % 40251) AVERAGE BLOOD GLUCOSE (test code = 82 mg/dL 11425) COMPREHENSIVE METABOLIC [id number] 00:00:00 Test Item Value Reference Range Interpretation Comments GLUCOSE (test code = 2217) 98 MG/DL BUN (test code = 2208) 11 MG/DL CREATININE (test code = 2214) 0.65 MG/DL eGFR AMER. (test code 135 ML/MIN/1.73 = 76490) eGFR NON- AMER. (test 117 ML/MIN/1.73 code = 33976) CALC BUN/CREAT (test code = 17 RATIO [...] code = 2219) 13 U/L COMPREHENSIVE METABOLIC [id number] 00:00:00 Test Item Value Reference Range Interpretation Comments GLUCOSE (test code = 2217) 98 MG/DL BUN (test code = 2208) 11 MG/DL CREATININE (test code = 2214) 0.65 MG/DL eGFR AMER. (test code 135 ML/MIN/1.73 = 26493) eGFR NON- AMER. (test 117 ML/MIN/1.73 code = 26117) CALC BUN/CREAT (test code = 17 RATIO [...] (test code = 2219) 13 U/L LIPID [id number] 00:00:00 Test Item Value Reference Range Interpretation Comments CHOLESTEROL (test code = 2210) 148 MG/DL TRIGLYCERIDES (test code = 2232) 103 MG/DL HDL CHOLESTEROL (test code = 2220) 40 MG/DL CALC LDL CHOL (test code = 2237) 87 MG/DL RISK RATIO LDL/HDL (test code = 2.19 RATIO 2238) CBC W/AUTO [id number] 00:00:00 Test Item Value Reference Range Interpretation [...] COMMENTS (test code = 1016) (NOTE) LIPID [id number] 00:00:00 Test Item Value Reference Range Interpretation Comments CHOLESTEROL (test code = 2210) 148 MG/DL TRIGLYCERIDES (test code = 2232) 103 MG/DL HDL CHOLESTEROL (test code = 2220) 40 MG/DL CALC LDL CHOL (test code = 2237) 87 MG/DL RISK RATIO LDL/HDL (test code = 2.19 RATIO 2238) CBC W/AUTO [id number] 00:00:00 Test Item Value Reference Range Interpretation [...] (test code = 1016) (NOTE) CBC W/AUTO [id number] 00:00:00 Test Item Value Reference Range Interpretation [...] (test code = 1016) (NOTE) CBC W/AUTO [id number] 00:00:00 Test Item Value Reference Range Interpretation [...] (test code = 1016) (NOTE) CBC W/AUTO [id number] 00:00:00 Test Item Value Reference Range Interpretation [...] COMMENTS (test code = 1016) (NOTE) HEMOGLOBIN [id number] 00:00:00 Test Item Value Reference Range Interpretation Comments HEMOGLOBIN A1c (test TEST NOT PERFORMED % code = 10549) HEMOGLOBIN [id number] 00:00:00 Test Item Value Reference Range Interpretation Comments HEMOGLOBIN A1c (test TEST NOT PERFORMED % code = 43023) HEMOGLOBIN [id number] 00:00:00 Test Item Value Reference Range Interpretation Comments HEMOGLOBIN A1c (test TEST NOT PERFORMED % code = 29762) THYROID II PROFILE (T3U, T4, T7, TSH)2016-08-25 [...] (test code = 2821) 4.4 UIU/ML HEMOGLOBIN [id number] 00:00:00 Test Item Value Reference Range Interpretation Comments HEMOGLOBIN A1c (test TEST NOT PERFORMED % code = 62610) HEMOGLOBIN [id number] 00:00:00 Test Item Value Reference Range Interpretation Comments HEMOGLOBIN A1c (test TEST NOT PERFORMED % code = 20832) THYROID II PROFILE (T3U, T4, T7, TSH)2016-08-25 00:00:00 Test Item Value Reference Range Interpretation Comments T3 UPTAKE (test code = 2817) 27.1 % T4 (THYROXINE) (test code = 2819) 4.2 UG/DL CALCULATED T7 (FTI) (test code = 1.14 2820) TSH (test code = 2821) 4.4 UIU/ML COMPREHENSIVE METABOLIC [id number] 00:00:00 Test Item Value Reference Range Interpretation Comments GLUCOSE (test code = 2217) 98 MG/DL BUN (test code = 2208) 11 MG/DL CREATININE (test code = 2214) 0.65 MG/DL eGFR AMER. (test code 135 ML/MIN/1.73 = 40754) eGFR NON- AMER. (test 117 ML/MIN/1.73 code = 17512) CALC BUN/CREAT (test code = 17 RATIO [...] CALC GLOBULIN (test code = 3.4 G/DL 0) CALC A/G RATIO (test code = 1.2 RATIO 2233) BILIRUBIN, TOTAL (test code = 0.4 MG/DL 2206) ALKALINE PHOSPHATASE (test 68 U/L code = 2204) AST (test code = 2218) 19 U/L ALT (test code = 2219) 13 U/L COMPREHENSIVE METABOLIC [id number] 00:00:00 Test Item Value Reference Range Interpretation Comments GLUCOSE (test code = 2217) 98 MG/DL BUN (test code = 2208) 11 MG/DL CREATININE (test code = 2214) 0.65 MG/DL eGFR AMER. (test code 135 ML/MIN/1.73 = 01475) eGFR NON- AMER. (test 117 ML/MIN/1.73 code = 95168) CALC BUN/CREAT (test code = 17 RATIO [...] (test code = 2219) 13 U/L LIPID [id number] 00:00:00 Test Item Value Reference Range Interpretation Comments CHOLESTEROL (test code = 2210) 148 MG/DL TRIGLYCERIDES (test code = 2232) 103 MG/DL HDL CHOLESTEROL (test code = 2220) 40 MG/DL CALC LDL CHOL (test code = 2237) 87 MG/DL RISK RATIO LDL/HDL (test code = 2.19 RATIO 2238) LIPID [id number] 00:00:00 Test Item Value Reference Range Interpretation Comments CHOLESTEROL (test code = 2210) 148 MG/DL TRIGLYCERIDES (test code = 2232) 103 MG/DL HDL CHOLESTEROL (test code = 2220) 40 MG/DL CALC LDL CHOL (test code = 2237) 87 MG/DL RISK RATIO LDL/HDL (test code = 2.19 RATIO 2238) CBC W/AUTO [id number] 00:00:00 Test Item Value Reference Range Interpretation [...] (test code = 1016) (NOTE) CBC W/AUTO [id number] 00:00:00 Test Item Value Reference Range Interpretation [...] (test code = 1016) (NOTE) CBC W/AUTO [id number] 00:00:00 Test Item Value Reference Range Interpretation [...] COMMENTS (test code = 1016) (NOTE) HEMOGLOBIN [id number] 00:00:00 Test Item Value Reference Range Interpretation Comments HEMOGLOBIN A1c (test TEST NOT PERFORMED % code = 43526) HEMOGLOBIN [id number] 00:00:00 Test Item Value Reference Range Interpretation Comments HEMOGLOBIN A1c (test TEST NOT PERFORMED % code = 98174) HEMOGLOBIN [id number] 00:00:00 Test Item Value Reference Range Interpretation Comments HEMOGLOBIN A1c (test TEST NOT PERFORMED % code = 95455) THYROID II PROFILE (T3U, T4, T7, TSH)2016-08-25 [...] code = 2821) 4.4 UIU/ML COMPREHENSIVE METABOLIC [id number] 00:00:00 Test Item Value Reference Range Interpretation Comments GLUCOSE (test code = 2217) 98 MG/DL BUN (test code = 2208) 11 MG/DL CREATININE (test code = 2214) 0.65 MG/DL eGFR AMER. (test code 135 ML/MIN/1.73 = 43979) eGFR NON- AMER. (test 117 ML/MIN/1.73 code = 50761) CALC BUN/CREAT (test code = 17 RATIO [...] code = 2219) 13 U/L COMPREHENSIVE METABOLIC [id number] 00:00:00 Test Item Value Reference Range Interpretation Comments GLUCOSE (test code = 2217) 98 MG/DL BUN (test code = 2208) 11 MG/DL CREATININE (test code = 2214) 0.65 MG/DL eGFR AMER. (test code 135 ML/MIN/1.73 = 02625) eGFR NON- AMER. (test 117 ML/MIN/1.73 code = 31217) CALC BUN/CREAT (test code = 17 RATIO [...] (test code = 2219) 13 U/L LIPID [id number] 00:00:00 Test Item Value Reference Range Interpretation Comments CHOLESTEROL (test code = 2210) 148 MG/DL TRIGLYCERIDES (test code = 2232) 103 MG/DL HDL CHOLESTEROL (test code = 2220) 40 MG/DL CALC LDL CHOL (test code = 2237) 87 MG/DL RISK RATIO LDL/HDL (test code = 2.19 RATIO 2238) LIPID [id number] 00:00:00 Test Item Value Reference Range Interpretation Comments CHOLESTEROL (test code = 2210) 148 MG/DL TRIGLYCERIDES (test code = 2232) 103 MG/DL HDL CHOLESTEROL (test code = 2220) 40 MG/DL CALC LDL CHOL (test code = 2237) 87 MG/DL RISK RATIO LDL/HDL (test code = 2.19 RATIO 2238) CBC W/AUTO [id number] 00:00:00 Test Item Value Reference Range Interpretation [...] (test code = 1016) (NOTE) CBC W/AUTO [id number] 00:00:00 Test Item Value Reference Range Interpretation [...] (test code = 1016) (NOTE) CBC W/AUTO [id number] 00:00:00 Test Item Value Reference Range Interpretation [...] COMMENTS (test code = 1016) (NOTE) HEMOGLOBIN [id number] 00:00:00 Test Item Value Reference Range Interpretation Comments HEMOGLOBIN A1c (test TEST NOT PERFORMED % code = 62305) HEMOGLOBIN [id number] 00:00:00 Test Item Value Reference Range Interpretation Comments HEMOGLOBIN A1c (test TEST NOT PERFORMED % code = 32908) HEMOGLOBIN [id number] 00:00:00 Test Item Value Reference Range Interpretation Comments HEMOGLOBIN A1c (test TEST NOT PERFORMED % code = 52153) THYROID II PROFILE (T3U, T4, T7, TSH)2016-08-25 [...] code = 2821) 4.4 UIU/ML COMPREHENSIVE METABOLIC [id number] 00:00:00 Test Item Value Reference Range Interpretation Comments GLUCOSE (test code = 2217) 98 MG/DL BUN (test code = 2208) 11 MG/DL CREATININE (test code = 2214) 0.65 MG/DL eGFR AMER. (test code 135 ML/MIN/1.73 = 60002) eGFR NON- AMER. (test 117 ML/MIN/1.73 code = 95938) CALC BUN/CREAT (test code = 17 RATIO [...] code = 2219) 13 U/L COMPREHENSIVE METABOLIC [id number] 00:00:00 Test Item Value Reference Range Interpretation Comments GLUCOSE (test code = 2217) 98 MG/DL BUN (test code = 2208) 11 MG/DL CREATININE (test code = 2214) 0.65 MG/DL eGFR AMER. (test code 135 ML/MIN/1.73 = 55468) eGFR NON- AMER. (test 117 ML/MIN/1.73 code = 85590) CALC BUN/CREAT (test code = 17 RATIO [...] BILIRUBIN, TOTAL (test code = 0.4 MG/DL 7) ALKALINE PHOSPHATASE (test 68 U/L code = 2204) AST (test code = 2218) 19 U/L ALT (test code = 2219) 13 U/L LIPID [id number] 00:00:00 Test Item Value Reference Range Interpretation Comments CHOLESTEROL (test code = 2210) 148 MG/DL TRIGLYCERIDES (test code = 2232) 103 MG/DL HDL CHOLESTEROL (test code = 2220) 40 MG/DL CALC LDL CHOL (test code = 2237) 87 MG/DL RISK RATIO LDL/HDL (test code = 2.19 RATIO 2238) LIPID [id number] 00:00:00 Test Item Value Reference Range Interpretation Comments CHOLESTEROL (test code = 2210) 148 MG/DL TRIGLYCERIDES (test code = 2232) 103 MG/DL HDL CHOLESTEROL (test code = 2220) 40 MG/DL CALC LDL CHOL (test code = 2237) 87 MG/DL RISK RATIO LDL/HDL (test code = 2.19 RATIO 2238) CBC W/AUTO [id number] 00:00:00 Test Item Value Reference Range Interpretation [...] (test code = 1016) (NOTE) CBC W/AUTO [id number] 00:00:00 Test Item Value Reference Range Interpretation [...] (test code = 1016) (NOTE) CBC W/AUTO [id number] 00:00:00 Test Item Value Reference Range Interpretation [...] COMMENTS (test code = 1016) (NOTE) HEMOGLOBIN [id number] 00:00:00 Test Item Value Reference Range Interpretation Comments HEMOGLOBIN A1c (test TEST NOT PERFORMED % code = 88076) HEMOGLOBIN [id number] 00:00:00 Test Item Value Reference Range Interpretation Comments HEMOGLOBIN A1c (test TEST NOT PERFORMED % code = 45427) HEMOGLOBIN [id number] 00:00:00 Test Item Value Reference Range Interpretation Comments HEMOGLOBIN A1c (test TEST NOT PERFORMED % code = 79454) THYROID II PROFILE (T3U, T4, T7, TSH)2016-08-25 [...] code = 2821) 4.4 UIU/ML COMPREHENSIVE METABOLIC [id number] 00:00:00 Test Item Value Reference Range Interpretation Comments GLUCOSE (test code = 2217) 98 MG/DL BUN (test code = 2208) 11 MG/DL CREATININE (test code = 2214) 0.65 MG/DL eGFR AMER. (test code 135 ML/MIN/1.73 = 07568) eGFR NON- AMER. (test 117 ML/MIN/1.73 code = 15474) CALC BUN/CREAT (test code = 17 RATIO [...] CALC GLOBULIN (test code = 3.4 G/DL 0) CALC A/G RATIO (test code = 1.2 RATIO 2233) BILIRUBIN, TOTAL (test code = 0.4 MG/DL 2206) ALKALINE PHOSPHATASE (test 68 U/L code = 2204) AST (test code = 2218) 19 U/L ALT (test code = 2219) 13 U/L COMPREHENSIVE METABOLIC [id number] 00:00:00 Test Item Value Reference Range Interpretation Comments GLUCOSE (test code = 2217) 98 MG/DL BUN (test code = 2208) 11 MG/DL CREATININE (test code = 2214) 0.65 MG/DL eGFR AMER. (test code 135 ML/MIN/1.73 = 90191) eGFR NON- AMER. (test 117 ML/MIN/1.73 code = 24357) CALC BUN/CREAT (test code = 17 RATIO [...] (test code = 2219) 13 U/L LIPID [id number] 00:00:00 Test Item Value Reference Range Interpretation Comments CHOLESTEROL (test code = 2210) 148 MG/DL TRIGLYCERIDES (test code = 2232) 103 MG/DL HDL CHOLESTEROL (test code = 2220) 40 MG/DL CALC LDL CHOL (test code = 2237) 87 MG/DL RISK RATIO LDL/HDL (test code = 2.19 RATIO 2238) LIPID [id number] 00:00:00 Test Item Value Reference Range Interpretation Comments CHOLESTEROL (test code = 2210) 148 MG/DL TRIGLYCERIDES (test code = 2232) 103 MG/DL HDL CHOLESTEROL (test code = 2220) 40 MG/DL CALC LDL CHOL (test code = 2237) 87 MG/DL RISK RATIO LDL/HDL (test code = 2.19 RATIO 2238) CBC W/AUTO [id number] 00:00:00 Test Item Value Reference Range Interpretation [...] (test code = 1016) (NOTE) CBC W/AUTO [id number] 00:00:00 Test Item Value Reference Range Interpretation [...] (test code = 1016) (NOTE) CBC W/AUTO [id number] 00:00:00 Test Item Value Reference Range Interpretation [...] COMMENTS (test code = 1016) (NOTE) HEMOGLOBIN [id number] 00:00:00 Test Item Value Reference Range Interpretation Comments HEMOGLOBIN A1c (test TEST NOT PERFORMED % code = 26272) HEMOGLOBIN [id number] 00:00:00 Test Item Value Reference Range Interpretation Comments HEMOGLOBIN A1c (test TEST NOT PERFORMED % code = 77598) HEMOGLOBIN [id number] 00:00:00 Test Item Value Reference Range Interpretation Comments HEMOGLOBIN A1c (test TEST NOT PERFORMED % code = 91627) THYROID II PROFILE (T3U, T4, T7, TSH)2016-08-25 [...] code = 2821) 4.4 UIU/ML COMPREHENSIVE METABOLIC [id number] 00:00:00 Test Item Value Reference Range Interpretation Comments GLUCOSE (test code = 2217) 98 MG/DL BUN (test code = 2208) 11 MG/DL CREATININE (test code = 2214) 0.65 MG/DL eGFR AMER. (test code 135 ML/MIN/1.73 = 23136) eGFR NON- AMER. (test 117 ML/MIN/1.73 code = 40711) CALC BUN/CREAT (test code = 17 RATIO [...] (test code = 2219) 13 U/L LIPID [id number] 00:00:00 Test Item Value Reference Range Interpretation Comments CHOLESTEROL (test code = 2210) 148 MG/DL TRIGLYCERIDES (test code = 2232) 103 MG/DL HDL CHOLESTEROL (test code = 2220) 40 MG/DL CALC LDL CHOL (test code = 2237) 87 MG/DL RISK RATIO LDL/HDL (test code = 2.19 RATIO 2238)
--- NOTE | 2023-07-25 16:04 | ER ---
Nurse's Notes [facility] Name: Charity Colon Age: 38 yrs Sex: Female : 1985 Arrival Date: 07/25/2023 Time: 14:54 Bed IW1 Private MD: Diagnosis: Low back pain;UTI/ Urinary tract infection, site not specified Presentation: 07/25 15:12 Chief complaint: Patient states: lower back pain onset this morning. Pt denies any cm10 trauma or injury. Coronavirus screen: Vaccine status: Patient reports receiving the 2nd dose of the covid vaccine. Client denies travel out of the [place] in the last 14 days. Ebola Screen: Patient denies travel to an Ebola-affected area in the 21 days before illness onset. No symptoms or risks identified at this time. Initial Sepsis Screen: Does the patient meet any 2 criteria? No. Patient's initial sepsis screen is negative. Does the patient have a suspected source of infection? No. Patient's initial sepsis screen is negative. Risk Assessment: Do you want to hurt yourself or someone else? Patient reports no desire to harm self or others. Onset of symptoms was July 25, 2023. 15:12 Method Of Arrival: Wheelchair cm10 15:12 Acuity: TAISHA 4 cm10 Triage Assessment: 15:49 General: Appears in no apparent distress. uncomfortable, Behavior is calm, cooperative. cm10 Pain: Complains of pain in low back area Pain currently is 10 out of 10 on a pain scale. Pain began suddenly. EENT: No deficits noted. No signs and/or symptoms were reported regarding the EENT system. Neuro: No deficits noted. Crawley Agitation-Sedation Scale (RASS): 0 - Alert and Calm Level of Consciousness is awake, alert, obeys commands, Oriented to person, place, time, situation. Cardiovascular: No deficits noted. Patient's skin is warm and dry. Respiratory: No deficits noted. Airway is patent Respiratory effort is even, unlabored, Respiratory pattern is regular, symmetrical. GI: No deficits noted. No signs and/or symptoms were reported involving the gastrointestinal system. : No deficits noted. No signs and/or symptoms were reported regarding the genitourinary system. Derm: No deficits noted. No signs and/or symptoms reported regarding the dermatologic system. Skin is intact, Skin is pink, warm \T\ dry. Musculoskeletal: No deficits noted. Reports pain in low back area. HOG MAN: 16:30 LMP N/A - Post-menopause, Not ap3 Historical: - Allergies: 15:18 No Known Allergies; cm10 - PMHx: 15:18 Anemia; COVID; diabetes mellitus; Hypothyroidism; cm10 - PSHx: 15:18 Appendectomy; Ligation of fallopian tube; cm10 - Immunization history:: Adult Immunizations. - Social history:: Smoking status: Patient denies any tobacco usage or history of. Screenin:50 [facility] ED Fall Risk Assessment (Adult) History of falling in the last 3 months, cm10 including since admission No falls in past 3 months (0 pts) Confusion or Disorientation No (0 pts) Intoxicated or Sedated No (0 pts) Impaired Gait No (0 pts) Mobility Assist Device Used Yes (1 pt) Altered Elimination No (0 pt) Score/Fall Risk Level 0 - 2 = Low Risk Oriented to surroundings, Maintained a safe environment, Educated pt \T\ family on fall prevention, incl call for assistance when getting out of bed, Assessed \T\ reinforced patient's understanding of fall precautions, Hourly rounding (assess needs \T\ fall precautionary measures) done, Used ambulatory aids as needed (educated on \T\ assisted with). Abuse screen: Denies threats or abuse. Denies injuries from another. Nutritional screening: No deficits noted. Tuberculosis screening: No symptoms or risk factors identified. Vital Signs: 15:12 BP 116 / 69; Pulse 87; Resp 18 S; Temp 98.2(O); Pulse Ox 100% on R/A; Weight 113.4 kg; cm10 Height 5 ft. 4 in. ; Pain 10/10; 15:12 Body Mass Index 42.91 (113.40 kg, 162.56 cm) cm10 15:12 Pain Scale: Adult cm10 ED Course: 14:58 Patient arrived in ED. kj1 14:58 Susana Guo FNP-C is PHCP. kb 14:58 Jose Antonio Cannon MD is Attending Physician. kb 15:18 Triage completed. cm10 15:19 Arm band placed on Patient placed in waiting room. cm10 15:24 Urine collected: clean catch specimen, clear. tm3 15:50 Patient has correct armband on for positive identification. Provided Education on: ER cm10 process and procedures. . 15:50 No provider procedures requiring assistance completed. Patient did not have IV access cm10 during this emergency room visit. Administered Medications: 15:25 Drug: Ketorolac IM 30 mg IM once Route: IM; Site: left deltoid; cm10 15:25 Drug: Lidoderm Topical Patch 5 % (700 mg/patch) 1 patches Topical once; leave on for 12 cm10 hours; cover most painful area; may cut into smaller pieces Route: Topical; Site: affected area; Medication: 15:50 VIS not applicable for this client. cm10 Outcome: 16:03 Discharge ordered by . chad 16:30 Discharged to home ambulatory, ap3 16:30 Condition: good 16:30 Discharge instructions given to patient, Instructed on discharge instructions, follow up and referral plans. medication usage, Demonstrated understanding of instructions, follow-up care, medications, Prescriptions given X 3, 16:31 Patient left the ED. ap3 Signatures: Susana Guo, MIHAELA-C OB/GYN DOCTOR-Nba Lizama 3 Binta Calvillo, RN RN ap3 June Guo kj1 Agnes Landrum, MARCELINA RN cm10
--- NOTE | 2023-07-25 16:04 | EDPHYS ---
Physician Documentation [facility] Name: Charity Colon Age: 38 yrs Sex: Female : 1985 Arrival Date: 07/25/2023 Time: 14:54 Bed IW1 Private MD: ED Physician Jose Antonio Cannon HPI: 07/25 16:00 This 38 yrs old Female presents to ER via Wheelchair with complaints of LOW kb BACK PAIN. 16:00 The patient presents with pain that is acute, with no known mechanism of injury. The kb symptoms are located in the low back. The pain does not radiate. The problem was sustained without known cause. Onset: The symptoms/episode began/occurred this morning. Modifying factors: The patient symptoms are alleviated by nothing, the patient symptoms are aggravated by any movement. Associated signs and symptoms: The patient has no apparent associated signs or symptoms. Severity of symptoms: At their worst the symptoms were moderate, in the emergency department the symptoms are unchanged. The patient has not experienced similar symptoms in the past. The patient has not recently seen a physician. Pt reports low back pain that she woke up with this morning. Denies injury or trauma. Denies urinary symptoms, n/v/d, fever, incontinence, numbness, tingling. . X RAY TECH: 16:30 LMP N/A - Post-menopause, Not ap3 Historical: - Allergies: 15:18 No Known Allergies; cm10 - PMHx: 15:18 Anemia; COVID; diabetes mellitus; Hypothyroidism; cm10 - PSHx: 15:18 Appendectomy; Ligation of fallopian tube; cm10 - Immunization history:: Adult Immunizations. - Social history:: Smoking status: Patient denies any tobacco usage or history of. ROS: 16:00 Constitutional: Negative for fever, chills, and weight loss, kb 16:00 Back: Positive for pain at rest, pain with movement, of the lumbar area, left low back and right low back, 16:00 All other systems are negative, Exam: 16:00 Constitutional: This is a well developed, well nourished patient who is awake, alert, kb and in no acute distress. Head/Face: Normocephalic, atraumatic. ENT: Moist Mucous membranes Cardiovascular: Regular rate Respiratory: Respirations even and unlabored. No increased work of breathing. Talking in full sentences Skin: Warm, dry with normal turgor. Normal color. MS/ Extremity: Pulses equal, no cyanosis. Neurovascular intact. Full, normal range of motion. Neuro: Awake and alert, GCS 15, oriented to person, place, time, and situation. Moves all extremities. Normal gait. 16:00 Back: pain, that is moderate, of the lumbar area, left low back and right low back, ROM is painful, normal spinal alignment noted, CVA tenderness, is absent, Vital Signs: 15:12 BP 116 / 69; Pulse 87; Resp 18 S; Temp 98.2(O); Pulse Ox 100% on R/A; Weight 113.4 kg; cm10 Height 5 ft. 4 in. ; Pain 07/18; 15:12 Body Mass Index 42.91 (113.40 kg, 162.56 cm) cm10 15:12 Pain Scale: Adult cm10 MDM: 14:58 Patient medically screened. kb 16:00 Differential diagnosis: arthritis, strain, sciatica, Herniated disc UTI. Data reviewed: kb vital signs, nurses notes. Test considered but Not performed: X-ray: x-ray considered, but pt has had no injury . CT: CT considered, but pt has had no injury, has no incontinence, numbness, tingling to lower ext. Counseling: I had a detailed discussion with the patient and/or guardian regarding the historical points, exam findings, and any diagnostic results supporting the discharge/admit diagnosis, lab results, the need for outpatient follow up, a family practitioner, to return to the emergency department if symptoms worsen or persist or if there are any questions or concerns that arise at home. 07/25 15:15 Order name: Test, Urine; Complete Time: 15:38 kb 07/25 15:15 Order name: Urinalysis w/ reflexes; Complete Time: 15:43 kb 07/25 15:42 Order name: Urine Culture EDMS Administered Medications: 15:25 Drug: Ketorolac IM 30 mg IM once Route: IM; Site: left deltoid; cm10 15:25 Drug: Lidoderm Topical Patch 5 % (700 mg/patch) 1 patches Topical once; leave on for 12 cm10 hours; cover most painful area; may cut into smaller pieces Route: Topical; Site: affected area; Disposition: 17:14 Co-signature as Attending Physician, Jose Antonio Cannon MD I reviewed the patient's care rn provided by the Advanced Practice Provider and agree with the diagnosis and treatment plan. Disposition Summary: 07/25/23 16:03 Discharge Ordered Notes: Location: Home kb Condition: Stable kb Diagnosis - Low back pain kb - UTI/ Urinary tract infection, site not specified kb Followup: kb - With: Emergency Department - When: As needed - Reason: Worsening of condition Followup: kb - With: Private Physician - When: 2 - 3 days - Reason: Recheck today's complaints, Continuance of care, Re-evaluation by your physician Discharge Instructions: - Discharge Summary Sheet kb - Acute Back Pain, Adult kb - Urinary Tract Infection, Adult, [id number] kb Forms: - Medication Reconciliation Form kb - Thank You Letter kb - Antibiotic Education kb - Prescription Opioid Use kb - Patient Portal Instructions kb - Leadership Thank You Letter kb Prescriptions: - Augmentin 875-125 mg Oral tablet - take 1 tablet ORAL route every 12 hours for 5 days; 10 tablet; Refills: 0, kb Product Selection Permitted - Diclofenac Sodium 75 mg Oral Tablet Sustained Release - take 1 tablet ORAL route 2 times per day; 30 tablet; Refills: 0, Product kb Selection Permitted - orphenadrine citrate 100 mg Oral Tablet Sustained Release - take 1 tablet ORAL route 2 times per day As needed; 20 tablet; Refills: 0, kb Product Selection Permitted Signatures: Dispatcher [employer] Susana Flores, LEAD SECURITY OFFICER-C LEAD SECURITY OFFICER-Ckb Jose Antonio Cannon MD MD rn Martinez, Clarissa, RN RN cm10
[2023-07-25 16:35] VITALS: BP 116/69; TEMP 98.2; O2SAT 100
== END 2023-07-25 16:31 | disposition home or self-care (01) ==
LOC: ER 14:54
DX: N39.0 Urinary tract infection, site not specified (principal)
CPT/HCPCS: 81001; 81025; 87086; 87088; 96372; 99284; J2001

== ENCOUNTER 2024-09-26 15:34 | Emergency (ER) | payer OTHER, SELFPAY ==
--- OUTSIDE RECORDS SUMMARY | 2024-09-26 15:40 | XMS REPORT | Continuity of Care Document ---
Author Name Unknown Address [address] [facility] [address] [place], [place] [address] [place] [address] thconnect Address [address] [facility] [address] [place] [address] Care Team Providers Care Shotblaster Name Role Phone Rinku Das Primary Care Physician HERMELINDO QUICK Attending Clinician Unavailable DARCY MCGEE Attending Clinician Unavailable MD EVERETTE Attending Clinician Unavailab DEENA Hernandes Attending Clinician Unavailable LEI CURIEL Attending Clinician Unavailable YOSHI WARD Attending Clinician Unavailable [facility] Attending Clinician Unavailable BETY MARTINEZ Attending Clinician UnaNANCY Rodriguez Attending Clinician Unavailab GARRY Diego Attending Clinician Unavailab BRAYAN Ty Attending Clinician Unavailable [facility] Attending Clinician Unavailable CANDACE RYAN Attending Clinician Unavailable DAVID DAMICO Attending Clinician Unavailable Payers Payer Name Policy Type Policy Number Effective Date Expirati on Date Source [employer] [facility] [employer] 5 O DIAL PAINTER 94 ON 9 [id number] 2023 00:00:00 Problems Condition Name Condition Details Condition Category Status Onset Date Resolution Date Last Treatment Date Treating Clinician Comments Source 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 Active 2023-10 0-18 00:00: 00 Meagan Iqbal - Externa l Gastroesop hageal reflux disease without esophagiti s Gastroesop hageal reflux disease without esophagiti s Disease Active 2023-10 0-18 00:00: 00 Meagan Iqbal - Externa l Thyromegal y Thyromegal y Disease Active 6-10 00:00: 00 Meagan Edmondsonold - Externa l Type 2 diabetes mellitus with hyperlipid emia (multi HCC) Type 2 diabetes mellitus with hyperlipid emia (multi HCC) Disease Active 4-14 00:00: 00 Meagan Edmondsonold - Externa l Type 2 diabetes mellitus with hyperlipid emia (multi HCC) Type 2 diabetes mellitus with hyperlipid emia (multi HCC) Disease Active 3 00:00: 00 Meagan Edmondsonold - Externa l Well adult exam Well adult exam Disease Active 12-31 00:00: 00 Meagan Edmondsonold - Externa l Family history of breast cancer Family history of breast cancer Disease Active 12-31 00:00: 00 eMagan Edmondsonold - Externa l Hypothyroi dism Hypothyroi dism Disease Active 12-31 00:00: 00 Meagan Edmondsonold - Externa l Hyperlipid emia Hyperlipid emia Disease Active 12-31 00:00: 00 Meagan Iqbal - Externa l Type 2 diabetes mellitus without complicati on, without long-term current use of insulin (multi HCC) Type 2 diabetes mellitus without complicati on, without long-term current use of insulin (multi HCC) Disease Active 12-31 00:00: 00 Meagan Iqbal - Externa l Situationa l anxiety Situationa l anxiety Disease Active 12-31 00:00: 00 Meagan Iqbal - Externa l Severe obesity Severe obesity Disease Active 12-31 00:00: 00 Meagan Iqbal - Externa l Social History Social Habit Start Date Stop Date Quantity Comments Source Sexual orientation 2023-12-13 18:38:11 Heterosexual (finding) Meagan Iqbal - External ASSERTION Not Meagan Iqbal - External History of Occupation Meagan Iqbal - External Alcoholic beverage intake 2024-08-19 00:00:00 2024-08-19 00:00:00 Current drinker of alcohol (finding) Meagan Iqbal - External History of Social function 2024-03-18 00:00:00 2024-03-18 00:00:00 Meagan Iqbal - External Education 2024-03-18 00:00:00 2024-03-18 00:00:00 10 Meagan Iqbal - External Alcohol Comment 2024-03-18 00:00:00 2024-03-18 00:00:00 rarely Meagan Iqbal - External Tobacco use and exposure 2024-01-01 00:00:00 2024-01-01 00:00:00 Smokeless tobacco non-user Meagan Iqbal - External Sex 2023-11-29 21:28:26 2023-11-29 21:28:26 Female (finding) Meagan Iqbal - External Sex assigned at 1985 00:00:00 1985 00:00:00 F Meagan Iqbal - External Smoking Status Start Date Stop Date Source Never smoked tobacco Meagan Iqbal - External Medications Ordered Medication Name Filled Medication Name Start Date Stop Date Current Medication? Ordering Clinician Indication Dosage Frequency Signature (SIG) Comments Components Source Depo-Concrete Vault Maker a 150 mg/mL intramuscul ar syringe 2023-10 00:00: 00 Yes mg/mL Jacobo Witt Montelukast (Singulair) 10 MG oral Tablet tablet 2023-10 00:00: 00 Yes [id number] 10mg QD Take 1 tablet (10 mg total) by mouth nightly. Meagan pizarro Cetirizine- Pseudoephed rine (ZyrTEC-D Allergy & Congestion) 5-120 MG oral Tablet 12 Hour Sustained Release 2023-10 00:00: 00 Yes [id number] 1{tbl} Q.5D Take 1 tablet by mouth 2 times daily. Meagan pizarro Sertraline HCl 25 MG oral Tablet 2023-10 00:00: 00 Yes [id number] 25mg QD Take 1 tablet (25 mg total) by mouth daily. Meagan Clarkea juarez Propranolol HCl 10 MG oral Tablet 2023-10 00:00: 00 Yes [id number] 10mg Q.[id number] 3D Take 1 tablet (10 mg total) by mouth 3 times daily as needed. Meagan pizarro hydrOXYzine HCl 25 MG oral Tablet 2023-10 00:00: 00 Yes [id number] 25mg Q.[id number] 3D Take 1 tablet (25 mg total) by mouth 3 times daily as needed for anxiety. Meagan pizarro Cetirizine (ZYRTEC) 10 MG oral Tablet 2023-10 00:00: 00 Yes 10mg QD Take 1 tablet (10 mg total) by mouth daily. Meagan pizarro Trulicity 3 MG/0.5ML subcutaneou s Solution Pen-injecto r 2023-10 00:00: 00 Yes [id number] 3mg Q1W Inject 3 mg into the skin once a week. Meagan pizarro FLUTICASONE PROPIONATE, NASAL, 50 MCG/ACT nasal Suspension 2023-10 00:00: 00 Yes [id number] 50ug QD Use 1 spray (50 mcg total) in each nostril daily. Meagan pizarro Trulicity 3 MG/0.5ML subcutaneou s Solution Pen-injecto r 2023-10 00:00: 00 Yes [id number] 3mg Q1W Inject 3 mg into the skin once a week. Meagan pizarro Cetirizine HCl (ZyrTEC Allergy) 10 MG oral Capsule 2023-10 00:00: 00 08-19 00:00 :00 No [id number] 10mg QD Take 1 capsule (10 mg total) by mouth daily. Meagan pizarro methylPREDN ISolone 4 MG oral Tablet Therapy Pack 2023-10 00:00: 00 08-05 00:00 :00 No [id number] 1{tina} Take 1 tina by mouth See Admin Instructio ns Use as directed. Meagan pizarro Azithromyci n 250 MG oral Tablet 2023-10 016 00:00: 00 07-26 00:00 :00 No [id number] Take 2 tablets by mouth on day 1 then 1 tablet by mouth daily for 4 days thereafter .. Meagan pizarro Promethazin e-DM 6.25-15 MG/5ML oral Syrup 2023-10 0-14 00:00: 00 07-24 00:00 :00 No TAKE FIVE (5) ML(S) BY MOUTH EVERY FOUR TO SIX HOURS NEEDED. Meagan pizarro Albuterol HFA 108 (90 Base) MCG/ACT IN AERS 2023-10 0-04 00:00: 00 Yes 2{puff} Q4H 2 puffs every 4 hours as needed. Meagan pizarro FLUTICASONE PROPIONATE, NASAL, 50 MCG/ACT nasal Suspension 2023-10 0-04 00:00: 00 07-24 00:00 :00 No 100ug QD Use 2 sprays (100 mcg total) in each nostril daily. Meagan pizarro Fluticasone -Salmeterol 100-50 MCG/ACT inhalation AEROSOL POWDER, BREATH ACTIVATED 2023-10 0-04 00:00: 00 07-24 00:00 :00 No INHALE 1 DOSE BY MOUTH EVERY 12 HOURS Meagan pizarro Lidocaine HCl (Lidocaine Viscous HCl) 2 % mouth/throa t Solution 2023-10 0-04 00:00: 00 07-24 00:00 :00 No SWISH AND SPIT 15 ML EVERY 3 HOURS NEEDED Meagan pizarro predniSONE (DELTASONE) 20 MG oral tablet 2023-10 0-04 00:00: 00 07-24 00:00 :00 No 40mg QD Take 2 tablets (40 mg total) by mouth daily. Meagan pizarro Amoxicillin -Pot Clavulanate 875-125 MG oral Tablet -26 00:00: 00 07-24 00:00 :00 No [id number] 1{tbl} Q.5D Take 1 tablet by mouth 2 times daily. Meagan pizarro Pseudoeph-B romphen-DM 30-2-10 MG/5ML oral Syrup 9-23 00:00: 00 07-24 00:00 :00 No [id number] 10mL Q.25D Take 10 mL by mouth 4 times daily as needed. Meagan pizarro Benzocaine- Menthol (Cepacol Sore Throat Max Numb) 15-4 MG mouth/throa t Lozenge 07-01 00:00: 00 07-07 04:59 :00 Yes [id number] 1{lozen ge} Place 1 lozenge in the mouth or throat 6 times daily for 5 days. Meagan pizarro Depo-Concrete Vault Maker a 150 mg/mL intramuscul ar syringe 06-10 00:00: 00 Yes mg/mL Jacobo F Eduar medroxyPROG ESTERone Acetate 150 MG/ML intramuscul ar Suspension Prefilled Syringe 06-10 00:00: 00 07-24 00:00 :00 No intramuscu lar; inject 1 ml IM x 1 Meagan pizarro Metformin HCl ER 500 MG oral TABLET SR 24 HR 06-04 00:00: 00 07-26 00:00 :00 No 500mg QD Take 1 tablet (500 mg total) by mouth daily (with breakfast) . Meagan pizarro Metformin HCl ER, OSM, 500 MG oral TABLET SR 24 HR 06-03 00:00: 00 07-04 00:00 :00 No [id number] 3 500mg QD Take 1 tablet (500 mg total) by mouth daily (with breakfast) . Meagan pizarro Omeprazole 20 MG oral Delayed Release Capsule 04-29 00:00: 00 Yes [id number] 20mg QD Take 1 capsule (20 mg total) by mouth daily. Meagan pizarro Trulicity 1.5 MG/0.5ML subcutaneou s Solution Pen-injecto r 04-29 00:00: 00 07-26 00:00 :00 No [id number] 3 1.5mg Q1W Inject 1.5 mg into the skin once a week. Meagan pizarro Metformin HCl ER, OSM, 500 MG oral TABLET SR 24 HR 04-08 00:00: 00 Yes [id number] 3 500mg QD Take 1 tablet (500 mg total) by mouth daily (with breakfast) . Meagan pizarro Metformin HCl ER, OSM, 500 MG oral TABLET SR 24 HR 03-18 00:00: 00 Yes [id number] 3 500mg Take 1 tablet (500 mg total) by mouth daily (with breakfast) . Meagan pizarro Trulicity 0.75 MG/0.5ML subcutaneou s Solution Pen-injecto r 03-18 00:00: 00 04-29 00:00 :00 No [id number] 3 .75mg Q1W Inject 0.75 mg into the skin once a week. Meagan pizarro triamcinolo ne acetonide 0.1 % topical cream 03-13 00:00: 00 Yes 1% Jacobo F Eduar hydroxyzine HCl 25 mg tablet 03-13 00:00: 00 Yes 1mg Jacobo F Eduar Depo-Concrete Vault Maker a 150 mg/mL intramuscul ar syringe 03-13 00:00: 00 Yes mg/mL Jacobo F Eduar hydrOXYzine HCl 25 MG oral Tablet 03-13 00:00: 00 03-18 00:00 :00 No 25mg Take 1 tablet (25 mg total) by mouth at bedtime. Meagan pizarro Triamcinmalina ne Acetonide 0.1 % apply externally Cream 03-13 00:00: 00 03-18 00:00 :00 No Apply topically 2 times daily. Meagan pizarro methylPREDN ISolone 4 MG oral Tablet Therapy Pack 03-11 00:00: 00 03-18 00:00 :00 No [id number] 2{tina} Take 2 paks by mouth See Admin Instructio ns Day1: take day 1 of first pack, Day2: take day 1 of second pack, Day3: take day 2 of first pack, Day4: take day 2 of second pack, Day5:Take day 3 of first back, and so on until both packs are complete. Meagan pizarro Azithromyci n 250 MG oral Tablet 02-05 00:00: 00 03-18 00:00 :00 No 250mg Take 1 tablet (250 mg total) by mouth daily. Meagan pizarro Pseudoeph-B romphen-DM 30-2-10 MG/5ML oral Syrup 01-29 00:00: 00 03-18 00:00 :00 No [id number] 10mL Q.25D Take 10 mL by mouth 4 times daily as needed. Meagan pizarro predniSONE (DELTASONE) 20 MG oral tablet 01-29 00:00: 00 02-04 04:59 :00 No [id number] 20mg Take 1 tablet (20 mg total) by mouth daily for 5 days. Meagan pizarro Albuterol HFA 108 (90 Base) MCG/ACT IN AERS 01-28 00:00: 00 03-18 00:00 :00 No 2{puff} Inhale 2 puffs into the lungs 4 times daily. Meagan pizarro busPIRone HCl 30 MG oral Tablet 12-31 00:00: 00 03-18 00:00 :00 No [id number] 30mg Take 1 tablet (30 mg total) by mouth daily. Meagan pizarro Levothyroxi ne Sodium 50 MCG oral Tablet 12-31 00:00: 00 03-18 00:00 :00 No [id number] 50ug Take 1 tablet (50 mcg total) by mouth daily. Meagan pizarro Metformin HCl 1000 MG oral Tablet 12-31 00:00: 00 03-18 00:00 :00 No [id number] 1000mg Take 1 tablet (1,000 mg total) by mouth in the morning and 1 tablet (1,000 mg total) in the evening. Take with meals. Meagan pizarro Pioglitazon e HCl 45 MG oral Tablet 25 00:00: 00 03-18 00:00 :00 No [id number] 45mg Take 1 tablet (45 mg total) by mouth daily Please take with food. Meagan Seybold - Externa l Depo-Concrete Vault Maker a 150 mg/mL intramuscul ar suspension 12-20 00:00: 00 Yes mg/mL Jacobo Witt BUSPIRONE 30MG 12-06 00:00: 00 Yes Jacobo Witt INJECT 1 ML INTRAMUSCUL MARK ONCE EVERY 3 MONTHS. 2022-10 00:00: 00 Yes 150 Jacobo Witt DEPO-COMMERCIAL ESCROW ASSISTANT A 150 MG/ML SYRI 2022-10 00:00: 00 Yes Jacobo Witt TAKE 1 TABLET EVERY MORNING. 2022-10 00:00: 00 Yes 45 Jacobo Witt TAKE 1 TABLET TWICE DAILY. 2022-10 00:00: 00 Yes 1000 Jacobo Witt TAKE 1 TABLET DAILY. 2022-10 00:00: 00 Yes 20 Jacobo Witt INJECT 0.6 MG DAILY X 1 WEEK AND THEN 1.2 MG/DAILY 2022-10 00:00: 00 12-25 00:00 :00 No 183 Jacobo Witt TAKE 1 TABLET TWICE DAILY. 2022-10 00:00: 00 12-25 00:00 :00 No 30 Jacobo Witt TAKE 1 TABLET DAILY. 2022-10 00:00: 00 12-25 00:00 :00 No 10 Jacobo Witt TAKE 1 TABLET TWICE DAILY UNTIL FINISHED. 2022-10 00:00: 00 12-25 00:00 :00 No [id number] Jacobo Witt APPLY SPARINGLY IN EYE 4 TIMES A DAY. 2022-10 00:00: 00 12-25 00:00 :00 No 5 Jacobo Witt APPLY HALF AN INCH OF OINTMENT EVERY 3 HOURS TO EVERY 4 HOURS INTO AFFECTED EYES 2022-10 00:00: 00 Yes Jacobo Witt APPLY 1/2 INCH OF OINTMENT EVERY 3-4 HOURS INTO AFFECTED EYE(S). 2022-10 00:00: 00 12-25 00:00 :00 No [id number] Jacobo Witt TAKE 10 ML EVERY 4-6 HOURS NEEDED 2023-1 1-24 00:00: 00 12-25 00:00 :00 No [id number] Jacobo Witt INJECT 1 ML INTRAMUSCUL MARK ONCE EVERY 3 MONTHS. 2022-10 0-12 00:00: 00 12-25 00:00 :00 No 150 Jacobo Witt Liraglutide (Victoza) 18 MG/3ML subcutaneou s Solution Pen-injecto r 07 00:00: 00 03-18 00:00 :00 No [id number] Meagan pizarro TAKE 1 CAPSULE ONCE A DAY 904 00:00: 00 12-25 00:00 :00 No 40 Jacobo Witt 1 TABLET PO TID 15 00:00: 00 Yes 10 Jacobo Witt Atorvastati n Calcium 10 MG oral Tablet 05-23 00:00: 00 03-18 00:00 :00 No [id number] 10mg 1 tablet (10 mg total). Meagan pizarro Pioglitazon e HCl 45 MG oral Tablet 815 00:00: 00 12-31 00:00 :00 No 45mg Take 1 tablet (45 mg total) by mouth daily. Meagan pizarro TAKE 1 TABLET EVERY MORNING. 05-23 00:00: 00 12-25 00:00 :00 No 45 Jacobo Witt TAKE ONE (1) TABLET(S) BY MOUTH ONCE A DAY IN THE MORNING. 05-23 00:00: 00 12-25 00:00 :00 No 50 Jacobo Witt TAKE 1 TABLET TWICE DAILY. 815 00:00: 00 12-25 00:00 :00 No 1000 Jacobo Witt TAKE ONE (1) TABLET(S) BY MOUTH EVERY TWELVE HOURS NEEDED. 8 00:00: 00 Yes Jacobo Witt Depo-Concrete Vault Maker a 150 MG/ML intramuscul ar Suspension Prefilled Syringe 7-26 00:00: 00 03-18 00:00 :00 No [id number] Meagan Clarkea juarez INJECT 1 ML INTRAMUSCUL MARK ONCE EVERY 3 MONTHS. 05-03 00:00: 00 12-25 00:00 :00 No 150 Jacobo Witt SWISH AND SWALLOW 5ML 4 TIMES DAILY. 05-02 00:00: 00 12-25 00:00 :00 No [id number] Jacobo Witt TAKE 1 TABLET TWICE DAILY. 05-02 00:00: 00 12-25 00:00 :00 No 1000 Jacobo Witt TAKE DIRECTED. 02-07 00:00: 00 12-25 00:00 :00 No 4 Jacobo Witt DEPO-COMMERCIAL ESCROW ASSISTANT A 150 MG/ML SYRI 11-02 00:00: 00 Yes Jacobo Witt INJECT 1 ML INTRAMUSCUL MARK ONCE EVERY 3 MONTHS. 11-02 00:00: 00 12-25 00:00 :00 No 150 Jacobo Witt INJECT 1 ML INTRAMUSCUL MARK ONCE EVERY 3 MONTHS. 2021-10 00:00: 00 No 150 DEPO-COMMERCIAL ESCROW ASSISTANT A 150 MG/ML SYRI 2021-10 00:00: 00 No DEPO-COMMERCIAL ESCROW ASSISTANT A 150 MG/ML SYRI 2021-10 00:00: 00 Yes Jacobo Witt INJECT 1 ML INTRAMUSCUL MARK ONCE EVERY 3 MONTHS. 2021-10 00:00: 00 12-25 00:00 :00 No 150 Jacobo Witt TAKE 1 TABLET BY MOUTH THREE TIMES DAILY NEEDED 2021-10 00:00: 00 Yes Jacobo Witt TAKE 1 TABLET BY MOUTH THREE TIMES DAILY WITH MEALS 2021-10 00:00: 00 Yes Jacobo Witt Dose Unknown 8- 00:00: 00 No Dose Unknown 8- 00:00: 00 No Dose Unknown 8- 00:00: 00 No Dose Unknown 8- 00:00: 00 No Dose Unknown 8- 00:00: 00 No Dose Unknown 8- 00:00: 00 Yes Jacobo Witt TAKE 1 TABLET BY MOUTH TWICE DAILY FOR 7 DAYS THEN 1 TABLET DAILY FOR 7 DAYS 0 05-19 00:00: 00 No TAKE 1 CAPSULE BY MOUTH THREE TIMES DAILY NEEDED FOR COUGH 2021-0 05-19:00: 00 No 100 TAKE 1 TABLET BY MOUTH TWICE DAILY FOR 7 DAYS THEN 1 TABLET DAILY FOR 7 DAYS 0 05-19:00: 00 No 20 TAKE 1 CAPSULE BY MOUTH THREE TIMES DAILY NEEDED FOR COUGH 2021-0 05-19:00: 00 No 100 TAKE 1 TABLET BY MOUTH TWICE DAILY FOR 7 DAYS THEN 1 TABLET DAILY FOR 7 DAYS 0 05-19:00: 00 No 20 TAKE 1 CAPSULE BY MOUTH THREE TIMES DAILY NEEDED FOR COUGH 2021-0 05-19:00: 00 No 100 TAKE 1 TABLET BY MOUTH TWICE DAILY FOR 7 DAYS THEN 1 TABLET DAILY FOR 7 DAYS 0 05-19:00: 00 No TAKE 1 CAPSULE BY MOUTH THREE TIMES DAILY NEEDED FOR COUGH 2021-0 05-19:00: 00 No 100 TAKE 1 TABLET BY MOUTH TWICE DAILY FOR 7 DAYS THEN 1 TABLET DAILY FOR 7 DAYS 0 05-19:00: 00 No TAKE 1 CAPSULE BY MOUTH THREE TIMES DAILY NEEDED FOR COUGH 2021-0 05-19:00: 00 No 100 TAKE 1 TABLET BY MOUTH TWICE DAILY FOR 7 DAYS THEN 1 TABLET DAILY FOR 7 DAYS 0 05-19:00: 00 Yes Jacobo Witt TAKE 1 CAPSULE BY MOUTH THREE TIMES DAILY NEEDED FOR COUGH 2021-0 05-19 00:00: 00 Yes 100 Jacobo Witt Dose Unknown 0 05-17 00:00: 00 No Dose Unknown 0 05-17 00:00: 00 No APPLY ON THE SKIN THREE TIMES A DAY FOR 5 DAYS. 0 05-17 00:00: 00 No Dose Unknown 0 05-17 00:00: 00 No Dose Unknown 0 05-17 00:00: 00 No APPLY ON THE SKIN THREE TIMES A DAY FOR 5 DAYS. 0 05-17 00:00: 00 No Dose Unknown 0 05-17 00:00: 00 No Dose Unknown 0 05-17 00:00: 00 No APPLY ON THE SKIN THREE TIMES A DAY FOR 5 DAYS. 05-17 00:00: 00 No Dose Unknown 05-17 00:00: 00 No Dose Unknown 05-17 00:00: 00 No APPLY ON THE SKIN THREE TIMES A DAY FOR 5 DAYS. 05-17 00:00: 00 No Dose Unknown 05-17 00:00: 00 No Dose Unknown 05-17 00:00: 00 No APPLY ON THE SKIN THREE TIMES A DAY FOR 5 DAYS. 05-17 00:00: 00 No Dose Unknown 05-17 00:00: 00 Yes Jacobo Jalloh Eduar Dose Unknown 05-17 00:00: 00 Yes Jacobo Shubham Witt APPLY ON THE SKIN THREE TIMES A DAY FOR 5 DAYS. 05-17 00:00: 00 Yes Jacobo Witt methylpredn isolone 4 mg tablets in a dose pack 05-10 00:00: 00 No 1mg APPLY ON THE SKIN THREE TIMES A DAY FOR 5 DAYS. 05-10 00:00: 00 No TAKE 10 ML(S) BY MOUTH EVERY FOUR TO SIX HOURS. 05-10 00:00: 00 No Dose Unknown 05-10 00:00: 00 No Dose Unknown 05-10 00:00: 00 No Dose Unknown 05-10 00:00: 00 No TAKE 1 TABLET BY MOUTH TWICE DAILY FOR 7 DAYS THEN 1 TABLET DAILY FOR 7 DAYS 05-10 00:00: 00 No 20 Dose Unknown 05-10 00:00: 00 No methylpredn isolone 4 mg tablets in a dose pack 05-10 00:00: 00 No 1mg APPLY ON THE SKIN THREE TIMES A DAY FOR 5 DAYS. 05-10 00:00: 00 No TAKE 10 ML(S) BY MOUTH EVERY FOUR TO SIX HOURS. 05-10 00:00: 00 No Dose Unknown 05-10 00:00: 00 No Dose Unknown 05-10 00:00: 00 No Dose Unknown 05-10 00:00: 00 No TAKE 1 TABLET BY MOUTH TWICE DAILY FOR 7 DAYS THEN 1 TABLET DAILY FOR 7 DAYS 05-10 00:00: 00 No 20 Dose Unknown 05-10 00:00: 00 No methylpredn isolone 4 mg tablets in a dose pack 05-10 00:00: 00 No 1mg APPLY ON THE SKIN THREE TIMES A DAY FOR 5 DAYS. 05-10 00:00: 00 No TAKE 10 ML(S) BY MOUTH EVERY FOUR TO SIX HOURS. 05-10 00:00: 00 No Dose Unknown 05-10 00:00: 00 No Dose Unknown 05-10 00:00: 00 No Dose Unknown 05-10 00:00: 00 No TAKE 1 TABLET BY MOUTH TWICE DAILY FOR 7 DAYS THEN 1 TABLET DAILY FOR 7 DAYS 05-10 00:00: 00 No 20 Dose Unknown 05-10 00:00: 00 No methylpredn isolone 4 mg tablets in a dose pack 05-10 00:00: 00 No 1mg APPLY ON THE SKIN THREE TIMES A DAY FOR 5 DAYS. 05-10 00:00: 00 No TAKE 10 ML(S) BY MOUTH EVERY FOUR TO SIX HOURS. 05-10 00:00: 00 No Dose Unknown 05-10 00:00: 00 No Dose Unknown 05-10 00:00: 00 No Dose Unknown 05-10 00:00: 00 No TAKE 1 TABLET BY MOUTH TWICE DAILY FOR 7 DAYS THEN 1 TABLET DAILY FOR 7 DAYS 05-10 00:00: 00 No 20 Dose Unknown 05-10 00:00: 00 No methylpredn isolone 4 mg tablets in a dose pack 05-10 00:00: 00 No 1mg APPLY ON THE SKIN THREE TIMES A DAY FOR 5 DAYS. 05-10 00:00: 00 No TAKE 10 ML(S) BY MOUTH EVERY FOUR TO SIX HOURS. 05-10 00:00: 00 No Dose Unknown 05-10 00:00: 00 No Dose Unknown 05-10 00:00: 00 No Dose Unknown 05-10 00:00: 00 No TAKE 1 TABLET BY MOUTH TWICE DAILY FOR 7 DAYS THEN 1 TABLET DAILY FOR 7 DAYS 05-10 00:00: 00 No 20 Dose Unknown 05-10 00:00: 00 No methylpredn isolone 4 mg tablets in a dose pack 05-10 00:00: 00 No 1mg APPLY ON THE SKIN THREE TIMES A DAY FOR 5 DAYS. 05-10 00:00: 00 No TAKE 10 ML(S) BY MOUTH EVERY FOUR TO SIX HOURS. 05-10 00:00: 00 No Dose Unknown 05-10 00:00: 00 No Dose Unknown 05-10 00:00: 00 No Dose Unknown 05-10 00:00: 00 No TAKE 1 TABLET BY MOUTH TWICE DAILY FOR 7 DAYS THEN 1 TABLET DAILY FOR 7 DAYS 05-10 00:00: 00 No 20 Dose Unknown 05-10 00:00: 00 No methylpredn isolone 4 mg tablets in a dose pack 05-10 00:00: 00 Yes 1mg Jacobo Witt APPLY ON THE SKIN THREE TIMES A DAY FOR 5 DAYS. 05-10 00:00: 00 Yes Jacobo F Eduar TAKE 10 ML(S) BY MOUTH EVERY FOUR TO SIX HOURS. 05-10 00:00: 00 Yes Jacobo F Eduar Dose Unknown 05-10 00:00: 00 Yes Jacobo F Eduar Dose Unknown 05-10 00:00: 00 Yes Jacobo F Eduar Dose Unknown 05-10 00:00: 00 Yes Jacobo F Eduar TAKE 1 TABLET BY MOUTH TWICE DAILY FOR 7 DAYS THEN 1 TABLET DAILY FOR 7 DAYS 05-10 00:00: 00 Yes 20 Jacobo F Eduar Dose Unknown 05-10 00:00: 00 Yes Jacobo F Eduar mupirocin calcium 2 % topical cream 03-04 00:00: 00 No 1% Dose Unknown 03-04 00:00: 00 No mupirocin calcium 2 % topical cream 03-04 00:00: 00 No 1% Dose Unknown 03-04 00:00: 00 No mupirocin calcium 2 % topical cream 03-04 00:00: 00 No 1% Dose Unknown 2022-0 03-04 00:00: 00 No mupirocin calcium 2 % topical cream 2022-0 03-04 00:00: 00 No 1% Dose Unknown 2022-0 03-04 00:00: 00 No mupirocin calcium 2 % topical cream 2022-0 03-04 00:00: 00 No 1% Dose Unknown 2022-0 03-04 00:00: 00 No mupirocin calcium 2 % topical cream 2022-0 03-04 00:00: 00 No 1% Dose Unknown 2022-0 03-04 00:00: 00 No mupirocin calcium 2 % topical cream 2022-0 03-04 00:00: 00 Yes 1% Jacobo Witt Dose Unknown 2022-0 03-04 00:00: 00 Yes Jacobo Witt Dose Unknown 2022-0 3-06 00:00: 00 No Dose Unknown 2022-0 3-06 00:00: 00 No Dose Unknown 2022-0 3-06 00:00: 00 No Dose Unknown 2022-0 3-06 00:00: 00 No Dose Unknown 2022-0 3-06 00:00: 00 No Dose Unknown 2022-0 3-06 00:00: 00 No Dose Unknown 2022-0 3-06 00:00: 00 Yes Jacobo Witt Dose Unknown 2022-0 3-04 00:00: 00 No Dose Unknown 2022-0 3-04 00:00: 00 No Dose Unknown 2022-0 3-04 00:00: 00 No Dose Unknown 2022-0 3-04 00:00: 00 No Dose Unknown 2022-0 3-04 00:00: 00 No Dose Unknown 2022-0 3-04 00:00: 00 No Dose Unknown 2022-0 3-04 00:00: 00 Yes Jaocbo Witt Tamiflu 75 mg capsule 2-0 3-03 00:00: 00 No 1mg Bromfed DM 2 mg-30 mg-10 mg/5 mL oral syrup 2-0 3-03 00:00: 00 No 10mg/5 mL Tamiflu 75 mg capsule 2022-0 3-03 00:00: 00 No 1mg Bromfed DM 2 mg-30 mg-10 mg/5 mL oral syrup 2022-0 3-03 00:00: 00 No 10mg/5 mL Tamiflu 75 mg capsule 2022-0 3-03 00:00: 00 No 1mg Bromfed DM 2 mg-30 mg-10 mg/5 mL oral syrup 2022-0 3-03 00:00: 00 No 10mg/5 mL Tamiflu 75 mg capsule 2022-0 3-03 00:00: 00 No 1mg Bromfed DM 2 mg-30 mg-10 mg/5 mL oral syrup 2022-0 3-03 00:00: 00 No 10mg/5 mL Tamiflu 75 mg capsule 2022-0 3-03 00:00: 00 No 1mg Bromfed DM 2 mg-30 mg-10 mg/5 mL oral syrup 2022-0 3-03 00:00: 00 No 10mg/5 mL Tamiflu 75 mg capsule 2-0 3- 00:00: 00 No 1mg Bromfed DM 2 mg-30 mg-10 mg/5 mL oral syrup 2-0 3-03 00:00: 00 No 10mg/5 mL Tamiflu 75 mg capsule 2-0 3- 00:00: 00 Yes 1mg Jacobo Witt Bromfed DM 2 mg-30 mg-10 mg/5 mL oral syrup 2-0 3- 00:00: 00 Yes 10mg/5 mL Jacobo Witt Dose Unknown 2022-0 2-28 00:00: 00 No Dose Unknown 2022-0 2-28 00:00: 00 No Dose Unknown 2022-0 2-28 00:00: 00 No Dose Unknown 2022-0 228 00:00: 00 No Dose Unknown 2022-0 2-28 00:00: 00 No Dose Unknown 2022-0 228 00:00: 00 No Dose Unknown 2022-0 228 00:00: 00 No Dose Unknown 2022-0 2-28 00:00: 00 No Dose Unknown 2022-0 2-28 00:00: 00 No Dose Unknown 2022-0 228 00:00: 00 No Dose Unknown 2022-0 228 00:00: 00 No Dose Unknown 2022-0 228 00:00: 00 No Dose Unknown 2022-0 228 00:00: 00 No Dose Unknown 2022-0 2-28 00:00: 00 No Dose Unknown 2022-0 2-28 00:00: 00 No Dose Unknown 2022-0 2-28 00:00: 00 No Dose Unknown 2022-0 2-28 00:00: 00 No Dose Unknown 2022-0 2-28 00:00: 00 No Dose Unknown 2022-0 2-28 00:00: 00 No Dose Unknown 2022-0 2-28 00:00: 00 No Dose Unknown 2022-0 2-28 00:00: 00 No Dose Unknown 2022-0 2-28 00:00: 00 No Dose Unknown 2022-0 2-28 00:00: 00 No Dose Unknown 2022-0 2-28 00:00: 00 No Dose Unknown 2022-0 2-28 00:00: 00 No Dose Unknown 2022-0 2-28 00:00: 00 No Dose Unknown 2022-0 2-28 00:00: 00 No Dose Unknown 2022-0 2-28 00:00: 00 No Dose Unknown 2022-0 2-28 00:00: 00 No Dose Unknown 2022-0 2-28 00:00: 00 No Dose Unknown 2022-0 2-28 00:00: 00 No Dose Unknown 2022-0 2-28 00:00: 00 No Dose Unknown 2022-0 2-28 00:00: 00 No Dose Unknown 2022-0 2-28 00:00: 00 No Dose Unknown 2022-0 2-28 00:00: 00 No Dose Unknown 2022-0 2-28 00:00: 00 No Dose Unknown 2022-0 2-28 00:00: 00 No Dose Unknown 2022-0 2-28 00:00: 00 No Dose Unknown 2022-0 2-28 00:00: 00 No Dose Unknown 2022-0 2-28 00:00: 00 No Dose Unknown 2022-0 2-28 00:00: 00 No Dose Unknown 2022-0 2-28 00:00: 00 No Dose Unknown 2022-0 2-28 00:00: 00 Yes Jacobo Witt Dose Unknown 2022-0 2-28 00:00: 00 Yes Jacobo Witt Dose Unknown 2022-0 2-28 00:00: 00 Yes Jacobo Witt Dose Unknown 2022-0 2-28 00:00: 00 Yes Jacobo Witt Dose Unknown 2022-0 228 00:00: 00 Yes Jacobo Witt Dose Unknown 2022-0 228 00:00: 00 Yes Jacobo Witt Dose Unknown 2022-0 2-28 00:00: 00 Yes Jacobo Witt Dose Unknown 2021-1 1-18 00:00: 00 No Dose Unknown 2021-1 1-18 00:00: 00 No Dose Unknown 2021-1 1-18 00:00: 00 No Dose Unknown 2021-1 1-18 00:00: 00 No Dose Unknown 2021-1 1-18 00:00: 00 No Dose Unknown 2021-1 1-18 00:00: 00 No Dose Unknown 2021-1 1-18 00:00: 00 Yes Jacobo Witt Dose Unknown 2021-1 1-17 00:00: 00 No Dose Unknown 2021-1 1-17 00:00: 00 No Dose Unknown 2021-1 1-17 00:00: 00 No Dose Unknown 2021-1 1-17 00:00: 00 No Dose Unknown 2021-1 1-17 00:00: 00 No Dose Unknown 2021-1 1-17 00:00: 00 No Dose Unknown 2021-1 1-17 00:00: 00 Yes Jacobo Witt Dose Unknown 2021-0 9-16 00:00: 00 No Dose Unknown 2021-0 9-16 00:00: 00 No Dose Unknown 2021-0 9-16 00:00: 00 No Dose Unknown 2021-0 9-16 00:00: 00 No Dose Unknown 2021-0 9-16 00:00: 00 No Dose Unknown 2021-0 9-16 00:00: 00 No Dose Unknown 2021-0 9-16 00:00: 00 Yes Jacobo Witt Dose Unknown 2021-0 9-07 00:00: 00 No Dose Unknown 2021-0 9-07 00:00: 00 No Dose Unknown 2021-0 9-07 00:00: 00 No Dose Unknown 2021-0 9-07 00:00: 00 No Dose Unknown 2021-0 9-07 00:00: 00 No Dose Unknown 2021-0 9-07 00:00: 00 No Dose Unknown 2021-0 9-07 00:00: 00 Yes Jacobo Witt mupirocin 2 % topical ointment 06-10 00:00: 00 No 1% Dose Unknown 06-10 00:00: 00 No Novolin 70/30 U-100 Insulin 100 unit/mL subcutaneou s suspension 06-10 00:00: 00 No 1unit/m L (70-30) mupirocin 2 % topical ointment 06-10 00:00: 00 No 1% Dose Unknown 06-10 00:00: 00 No Novolin 70/30 U-100 Insulin 100 unit/mL subcutaneou s suspension 06-10 00:00: 00 No 1unit/m L (70-30) mupirocin 2 % topical ointment 06-10 00:00: 00 No 1% Dose Unknown 06-10 00:00: 00 No Novolin 70/30 U-100 Insulin 100 unit/mL subcutaneou s suspension 06-10 00:00: 00 No 1unit/m L (70-30) mupirocin 2 % topical ointment 06-10 00:00: 00 No 1% Dose Unknown 06-10 00:00: 00 No Novolin 70/30 U-100 Insulin 100 unit/mL subcutaneou s suspension 06-10 00:00: 00 No 1unit/m L (70-30) mupirocin 2 % topical ointment 06-10 00:00: 00 No 1% Dose Unknown 06-10 00:00: 00 No Novolin 70/30 U-100 Insulin 100 unit/mL subcutaneou s suspension 06-10 00:00: 00 No 1unit/m L (70-30) mupirocin 2 % topical ointment 06-10 00:00: 00 No 1% Dose Unknown 06-10 00:00: 00 No Novolin 70/30 U-100 Insulin 100 unit/mL subcutaneou s suspension 06-10 00:00: 00 No 1unit/m L (70-30) mupirocin 2 % topical ointment 06-10 00:00: 00 Yes 1% Jacobo Witt Dose Unknown 06-10 00:00: 00 Yes Jacobo Witt Novolin 70/30 U-100 Insulin 100 unit/mL subcutaneou s suspension 06-10 00:00: 00 Yes 1unit/m L (70-30) Jacobo Witt prednisone 5 mg tablet 06-01 00:00: 00 No 1mg prednisone 5 mg tablet 06-01 00:00: 00 No 1mg prednisone 5 mg tablet 06-01 00:00: 00 No 1mg prednisone 5 mg tablet 06-01 00:00: 00 No 1mg prednisone 5 mg tablet 06-01 00:00: 00 No 1mg prednisone 5 mg tablet 06-01 00:00: 00 No 1mg prednisone 5 mg tablet 06-01 00:00: 00 Yes 1mg Jacobo Witt Zofran 4 mg tablet 05-03 00:00: 00 No 1mg Zofran 4 mg tablet 05-03 00:00: 00 No 1mg Zofran 4 mg tablet 05-03 00:00: 00 No 1mg Zofran 4 mg tablet 05-03 00:00: 00 No 1mg Zofran 4 mg tablet 05-03 00:00: 00 No 1mg Zofran 4 mg tablet 05-03 00:00: 00 No 1mg Zofran 4 mg tablet 05-03 00:00: 00 Yes 1mg Jacobo Witt medroxyprog esterone 150 mg/mL intramuscul ar suspension 03-19 00:00: 00 No 1mg/mL medroxyprog esterone 150 mg/mL intramuscul ar suspension 03-19 00:00: 00 No 1mg/mL medroxyprog esterone 150 mg/mL intramuscul ar suspension 03-19 00:00: 00 No 1mg/mL medroxyprog esterone 150 mg/mL intramuscul ar suspension 2021-0 6-11 00:00: 00 No 1mg/mL medroxyprog esterone 150 mg/mL intramuscul ar suspension 2020-0 6-11 00:00: 00 No 1mg/mL medroxyprog esterone 150 mg/mL intramuscul ar suspension 0 6-11 00:00: 00 No 1mg/mL medroxyprog esterone 150 mg/mL intramuscul ar suspension 0 6-11 00:00: 00 Yes 1mg/mL Jacobo Witt Dose Unknown 2019-0 4-17 00:00: 00 No Dose Unknown 2019-0 4-17 00:00: 00 No Dose Unknown 2019-0 4-17 00:00: 00 No Dose Unknown 2019-0 4-17 00:00: 00 No Dose Unknown 2019-0 4-17 00:00: 00 No Dose Unknown 2019-0 4-17 00:00: 00 No Dose Unknown 2019-0 4-17 00:00: 00 No Dose Unknown 2019-0 4-17 00:00: 00 No Dose Unknown 2019-0 4-17 00:00: 00 No Dose Unknown 2019-0 4-17 00:00: 00 No Dose Unknown 2019-0 4-17 00:00: 00 No Dose Unknown 2019-0 4-17 00:00: 00 No Dose Unknown 2019-0 4-17 00:00: 00 Yes Jacobo Jalloh Eduar Dose Unknown 2019-0 4-17 00:00: 00 Yes Jacobo Jalloh Eduar Cortisporin -TC 3.3 mg-3 mg-10 mg-0.5 mg/mL ear drops,suspe nsion 0 2-06 00:00: 00 No 4mg/mL Bromfed DM 2 mg-30 mg-10 mg/5 mL oral syrup 0 2-06 00:00: 00 No 10mg/5 mL Cortisporin -TC 3.3 mg-3 mg-10 mg-0.5 mg/mL ear drops,suspe nsion 0 2-06 00:00: 00 No 4mg/mL Bromfed DM 2 mg-30 mg-10 mg/5 mL oral syrup 0 2-06 00:00: 00 No 10mg/5 mL Cortisporin -TC 3.3 mg-3 mg-10 mg-0.5 mg/mL ear drops,suspe nsion 2020-0 2-06 00:00: 00 No 4mg/mL Bromfed DM 2 mg-30 mg-10 mg/5 mL oral syrup 2019-0 2-06 00:00: 00 No 10mg/5 mL Cortisporin -TC 3.3 mg-3 mg-10 mg-0.5 mg/mL ear drops,suspe nsion 0 2- 00:00: 00 No 4mg/mL Bromfed DM 2 mg-30 mg-10 mg/5 mL oral syrup 2019-0 2- 00:00: 00 No 10mg/5 mL Cortisporin -TC 3.3 mg-3 mg-10 mg-0.5 mg/mL ear drops,suspe nsion 0 2- 00:00: 00 No 4mg/mL Bromfed DM 2 mg-30 mg-10 mg/5 mL oral syrup 0 2- 00:00: 00 No 10mg/5 mL Cortisporin -TC 3.3 mg-3 mg-10 mg-0.5 mg/mL ear drops,suspe nsion 0 2- 00:00: 00 No 4mg/mL Bromfed DM 2 mg-30 mg-10 mg/5 mL oral syrup 2019-0 2- 00:00: 00 No 10mg/5 mL Cortisporin -TC 3.3 mg-3 mg-10 mg-0.5 mg/mL ear drops,suspe nsion 0 2- 00:00: 00 Yes 4mg/mL Jacobo Witt Bromfed DM 2 mg-30 mg-10 mg/5 mL oral syrup 0 2 00:00: 00 Yes 10mg/5 mL Jacobo Witt Bactrim DS 800 mg-160 mg tablet 06-26 00:00: 00 No 1mg tramadol 37.5 mg-acetamin ophen 325 mg tablet 06-26 00:00: 00 No 1mg Bactrim DS 800 mg-160 mg tablet 06-26 00:00: 00 No 1mg tramadol 37.5 mg-acetamin ophen 325 mg tablet 06-26 00:00: 00 No 1mg Bactrim DS 800 mg-160 mg tablet 06-26 00:00: 00 No 1mg tramadol 37.5 mg-acetamin ophen 325 mg tablet 06-26 00:00: 00 No 1mg Bactrim DS 800 mg-160 mg tablet 06-26 00:00: 00 No 1mg tramadol 37.5 mg-acetamin ophen 325 mg tablet 06-26 00:00: 00 No 1mg Bactrim DS 800 mg-160 mg tablet 06-26 00:00: 00 No 1mg tramadol 37.5 mg-acetamin ophen 325 mg tablet 06-26 00:00: 00 No 1mg Bactrim DS 800 mg-160 mg tablet 06-26 00:00: 00 No 1mg tramadol 37.5 mg-acetamin ophen 325 mg tablet 06-26 00:00: 00 No 1mg Bactrim DS 800 mg-160 mg tablet 06-26 00:00: 00 Yes 1mg Jacobo Witt tramadol 37.5 mg-acetamin ophen 325 mg tablet 06-26 00:00: 00 Yes 1mg Jacobo Witt amoxicillin 875 mg tablet 11-23 00:00: 00 No 1mg amoxicillin 875 mg tablet 11-23 00:00: 00 No 1mg amoxicillin 875 mg tablet 11-23 00:00: 00 No 1mg amoxicillin 875 mg tablet 11-23 00:00: 00 No 1mg amoxicillin 875 mg tablet 11-23 00:00: 00 No 1mg amoxicillin 875 mg tablet 11-23 00:00: 00 No 1mg amoxicillin 875 mg tablet 11-23 00:00: 00 Yes 1mg Jacobo Witt liothyronin e 5 mcg tablet 06-20 00:00: 00 No 1mcg buspirone 10 mg tablet 06-20 00:00: 00 No 1mg levothyroxi ne 100 mcg tablet 06-20 00:00: 00 No 1mcg levothyroxi ne 100 mcg tablet 06-20 00:00: 00 No 1mcg liothyronin e 5 mcg tablet 06-20 00:00: 00 No 1mcg buspirone 10 mg tablet 06-20 00:00: 00 No 1mg levothyroxi ne 100 mcg tablet 06-20 00:00: 00 No 1mcg levothyroxi ne 100 mcg tablet 06-20 00:00: 00 No 1mcg liothyronin e 5 mcg tablet 06-20 00:00: 00 No 1mcg buspirone 10 mg tablet 06-20 00:00: 00 No 1mg levothyroxi ne 100 mcg tablet 06-20 00:00: 00 No 1mcg levothyroxi ne 100 mcg tablet 06-20 00:00: 00 No 1mcg liothyronin e 5 mcg tablet 06-20 00:00: 00 No 1mcg buspirone 10 mg tablet 06-20 00:00: 00 No 1mg buspirone 10 mg tablet 06-20 00:00: 00 No 1mg levothyroxi ne 100 mcg tablet 06-20 00:00: 00 No 1mcg levothyroxi ne 100 mcg tablet 06-20 00:00: 00 No 1mcg liothyronin e 5 mcg tablet 06-20 00:00: 00 No 1mcg levothyroxi ne 100 mcg tablet 06-20 00:00: 00 No 1mcg levothyroxi ne 100 mcg tablet 06-20 00:00: 00 No 1mcg buspirone 10 mg tablet 06-20 00:00: 00 No 1mg levothyroxi ne 100 mcg tablet 06-20 00:00: 00 No 1mcg levothyroxi ne 100 mcg tablet 06-20 00:00: 00 No 1mcg liothyronin e 5 mcg tablet 06-20 00:00: 00 No 1mcg buspirone 10 mg tablet 06-20 00:00: 00 Yes 1mg Jacobo Witt levothyroxi ne 100 mcg tablet 06-20 00:00: 00 Yes 1mcg Jacobo Witt levothyroxi ne 100 mcg tablet 2018-0 9-12 00:00: 00 Yes 1mcg Jacobo Shubham Witt liothyronin e 5 mcg tablet 12 00:00: 00 Yes 1mcg Jacobo Witt ferrous sulfate 325 mg (65 mg iron) tablet 01-26 00:00: 00 No 1(65 mg iron) levothyroxi ne 100 mcg tablet 01-26 00:00: 00 No 1mcg ferrous sulfate 325 mg (65 mg iron) tablet 01-26 00:00: 00 No 1(65 mg iron) ferrous sulfate 325 mg (65 mg iron) tablet 01-26 00:00: 00 No 1(65 mg iron) levothyroxi ne 100 mcg tablet 01-26 00:00: 00 No 1mcg levothyroxi ne 100 mcg tablet 01-26 00:00: 00 No 1mcg ferrous sulfate 325 mg (65 mg iron) tablet 01-26 00:00: 00 No 1(65 mg iron) levothyroxi ne 100 mcg tablet 01-26 00:00: 00 No 1mcg ferrous sulfate 325 mg (65 mg iron) tablet 01-26 00:00: 00 No 1(65 mg iron) levothyroxi ne 100 mcg tablet 01-26 00:00: 00 No 1mcg ferrous sulfate 325 mg (65 mg iron) tablet 01-26 00:00: 00 No 1(65 mg iron) levothyroxi ne 100 mcg tablet 01-26 00:00: 00 No 1mcg ferrous sulfate 325 mg (65 mg iron) tablet 01-26 00:00: 00 Yes 1(65 mg iron) Jacobo Witt levothyroxi ne 100 mcg tablet 01-26 00:00: 00 Yes 1mcg Jacobo Shubham Witt Immunizations Ordered Immunization Name Filled Immunization Name Date Status Comments Source Influenza, injectable, Madin Rupal Canine Kidney, preservative-free, quadrivalent Influenza, injectable, Madin Rupal Canine Kidney, preservative-free, quadrivalent 2023-09-14 00:00:00 Completed Jacobo Witt Moderna COVID-19 Vaccine 2021-06-24 00:00:00 Completed Moderna COVID-19 Vaccine 2021-06-24 00:00:00 Completed Moderna COVID-19 Vaccine 2021-06-24 00:00:00 Completed Moderna COVID-19 Vaccine 2021-06-24 00:00:00 Completed Moderna COVID-19 Vaccine 2021-06-24 00:00:00 Completed Moderna COVID-19 Vaccine 2021-06-24 00:00:00 Completed Moderna COVID-19 Vaccine Moderna COVID-19 Vaccine 2021-06-24 00:00:00 Completed Jacobo Witt Tdap 2018-11-23 00:00:00 Completed Tdap 2018-11-23 00:00:00 Completed Tdap 2018-11-23 00:00:00 Completed Tdap 2018-11-23 00:00:00 Completed Tdap 2018-11-23 00:00:00 Completed Tdap 2018-11-23 00:00:00 Completed Tdap Tdap 2018-11-23 00:00:00 Completed Jacobo Witt Influenza, Injectable, Mdck, Preservative Free, Quadrivalent Unknown Completed [facility] Seybold - External Covid-19 Vaccine Moderna (Spikevax), Mrna-lnp, Leonard Protein, [facility] Ad[facility], Injectable, Mdck, Preservative Free, Quadrivalent [facility] Moderna (Spikevax), Mrna-lnp, Leonard Protein, Pf [facility]- (Boostrix, Adacel) Unknown Completed Meagan Seybold - External Influenza, Injectable, Mdck, Preservative Free, Quadrivalent Unknown Completed Meagan Seybold - External Covid-19 Vaccine Moderna (Spikevax), Mrna-lnp, Leonard Protein, Pf Unknown Completed Meagan Seybold - External Tdap- (Boostrix, Adacel) Unknown Completed Meagan Seybold - External Influenza, Injectable, Mdck, Preservative Free, Quadrivalent Unknown Completed Meagan Seybold - External Covid-19 Vaccine Moderna (Spikevax), Mrna-lnp, Leonard Protein, Pf Unknown Completed Emagan Seybold - External Tdap- (Boostrix, Adacel) Unknown Completed Meagan Seybold - External Influenza, Injectable, Mdck, Preservative Free, Quadrivalent Unknown Completed Meagan Seybold - External Covid-19 Vaccine Moderna (Spikevax), Mrna-lnp, Leonard Protein, Pf Unknown Completed Meagan Seybold - External Tdap- (Boostrix, Adacel) Unknown Completed Meagan Seybold - External Influenza, Injectable, Mdck, Preservative Free, Quadrivalent Unknown Completed Meagan Seybold - External Covid-19 Vaccine Moderna (Spikevax), Mrna-lnp, Leonard Protein, Pf Unknown Completed Meagan Seybold - External Tdap- (Boostrix, Adacel) Unknown Completed Meagan Seybold - External Influenza, Injectable, Mdck, Preservative Free, Quadrivalent Unknown Completed Meagan Seybold - External Covid-19 Vaccine Moderna (Spikevax), Mrna-lnp, Leonard Protein, Pf Unknown Completed Meagan Seybold - External Tdap- (Boostrix, Adacel) Unknown Completed [facility] Seybold - External Influenza, Injectable, Mdck, Preservative Free, Quadrivalent Unknown Completed [facility] Seybold - External Covid-19 Vaccine Moderna (Spikevax), Mrna-lnp, Leonard Protein, Pf [facility]- (Boostrix, Adacel) [facility] Influenza, Injectable, Mdck, Preservative Free, Quadrivalent Unknown Completed [facility] Seybold - External Covid-19 Vaccine Moderna (Spikevax), Mrna-lnp, Leonadr Protein, Pf Unknown [facility] T[facility]- (Boostrix, Adacel) Unknown Completed Meagan Seybold - External Influenza, Injectable, Mdck, Preservative Free, Quadrivalent Unknown Completed Meagan Seybold - External Covid-19 Vaccine Moderna (Spikevax), Mrna-lnp, Leonard Protein, Pf Unknown Completed Meagan Seybold - External Tdap- (Boostrix, Adacel) Unknown Completed Meagan Seybold - External Influenza, Injectable, Mdck, Preservative Free, Quadrivalent Unknown Completed Meagan Seybold - External Covid-19 Vaccine Moderna (Spikevax), Mrna-lnp, Leonard Protein, Pf Unknown Completed Meagan Seybold - External Tdap- (Boostrix, Adacel) Unknown Completed Meagan Novaybold - External Influenza, Injectable, Mdck, Preservative Free, Quadrivalent Unknown Completed Meagan Novaybold - External Covid-19 Vaccine Moderna (Spikevax), Mrna-lnp, Leonard Protein, Pf Unknown Completed Meagan Seybold - External Tdap- (Boostrix, Adacel) Unknown Completed [facility] - External Vital Signs Vital Name Observation Time Observation Value Comments S ource Systolic blood pressure 2024-07-26 15:56:00 124 mm[Hg] Meagan Seybo ld - External Diastolic blood pressure 2024-07-26 15:56:00 78 mm[Hg] Meagan ybo ld - External Heart rate 2024-07-26 15:56:00 89 /min Kelse y Seybold - External Body temperature 2024-07-26 15:56:00 36.67 Jael Meagan Seybold - External Respiratory rate 2024-07-26 15:56:00 19 /min Meagan Novaybold - External Body height 2024-07-26 15:56:00 162.6 cm Nidia ey Seybold - External Body weight 2024-07-26 15:56:00 122.018 kg Nidia ey Seybold - External BMI 2024-07-26 15:56:00 46.17 kg/m2 Nidia ey Seybold - External Oxygen saturation in Arterial blood by Pulse oximetry 2024-07-26 15:56:00 98 /min Meagan Novaybo ld - External Systolic blood pressure 2024-07-24 18:42:00 120 mm[Hg] Meagan ybo ld - External Diastolic blood pressure 2024-07-24 18:42:00 72 mm[Hg] Meagan Seybo ld - External Heart rate 2024-07-24 18:42:00 86 /min Kelse y Seybold - External Body temperature 2024-07-24 18:42:00 36.67 Jael Meagan Seybold - External Respiratory rate 2024-07-24 18:42:00 15 /min Meagan Seybold - External Body height 2024-07-24 18:42:00 162.6 cm Nidia ey Seybold - External Body weight 2024-07-24 18:42:00 123.378 kg Nidia ey Seybold - External BMI 2024-07-24 18:42:00 46.69 kg/m2 Nidia ey Seybold - External Systolic blood pressure 2024-07-04 20:55:00 120 mm[Hg] Meagan Seybo ld - External Diastolic blood pressure 2024-07-04 20:55:00 78 mm[Hg] Meagan Seybo ld - External Heart rate 2024-07-04 20:55:00 91 /min Kelse y Seybold - External Body temperature 2024-07-04 20:55:00 36.72 Jael Meagan Seybold - External Respiratory rate 2024-07-04 20:55:00 15 /min Meagan Seybold - External Body height 2024-07-04 20:55:00 162.6 cm Nidia ey Seybold - External Body weight 2024-07-04 20:55:00 122.925 kg Nidia ey Seybold - External BMI 2024-07-04 20:55:00 46.52 kg/m2 Nidia ey Seybold - External Systolic blood pressure 2024-04-29 15:08:00 132 mm[Hg] Meagan Seybo ld - External Diastolic blood pressure 2024-04-29 15:08:00 80 mm[Hg] Meagan Seybo ld - External Heart rate 2024-04-29 15:08:00 78 /min Jeffreyse y Seybold - External Body temperature 2024-04-29 15:08:00 37.06 Jael Meagan Seybold - External Respiratory rate 2024-04-29 15:08:00 16 /min Meagan Seybold - External Body height 2024-04-29 15:08:00 162.6 cm Nidia ey Seybold - External Body weight 2024-04-29 15:08:00 125.646 kg Nidia ey Seybold - External BMI 2024-04-29 15:08:00 47.55 kg/m2 Nidia ey Seybold - External Oxygen saturation in Arterial blood by Pulse oximetry 2024-04-29 15:08:00 100 /min Meagan Seybo ld - External Body temperature 2024-03-18 16:19:00 36.5 Jael Meagan Seybold - External Respiratory rate 2024-03-18 16:19:00 16 /min Meagan Seybold - External Body height 2024-03-18 16:19:00 162.6 cm Nidia ey Seybold - External Body weight 2024-03-18 16:19:00 125.646 kg Nidia ey Seybold - External BMI 2024-03-18 16:19:00 47.55 kg/m2 Nidia ey Seybold - External Oxygen saturation in Arterial blood by Pulse oximetry 2024-03-18 16:19:00 98 /min Meagan Seybo ld - External Systolic blood pressure 2024-03-18 16:19:00 129 mm[Hg] Meagan Seybo ld - External Diastolic blood pressure 2024-03-18 16:19:00 76 mm[Hg] Meagan Seybo ld - External Heart rate 2024-03-18 16:19:00 77 /min Jeffreyse y Seybold - External Systolic blood pressure 2024-01-01 19:32:00 128 mm[Hg] Meagan Seybo ld - External Diastolic blood pressure 2024-01-01 19:32:00 74 mm[Hg] Meagan Seybo ld - External Heart rate 2024-01-01 19:32:00 80 /min Jeffreyse y Seybold - External Body temperature 2024-01-01 19:32:00 36.72 Jael Meagan Seybold - External Respiratory rate 2024-01-01 19:32:00 16 /min Meagan Novaybold - External Body height 2024-01-01 19:32:00 162.6 cm Nidia ey Seybold - External Body weight 2024-01-01 19:32:00 123.605 kg Nidia ey Seybold - External BMI 2024-01-01 19:32:00 46.77 kg/m2 Nidia ey Seybold - External Oxygen saturation in Arterial blood by Pulse oximetry 2024-01-01 19:32:00 96 /min Meagan Seybo ld - External BP Systolic 2024-09-02 08:52:00 123 mm[Hg] Vimal Witt BP Diastolic 2024-09-02 08:52:00 85 mm[Hg] Tim Witt Weight Measured 2024-09-02 08:52:00 260.20 pounds Jacobo Witt Height Measured 2024-09-02 08:52:00 66.00 inches Jacobo F Eduar Body Temperature 2024-09-02 08:52:00 98.20 degrees Jacobo F Eduar Heart Rate 2024-09-02 08:52:00 83.00 /min Chayo en F Eduar Respiratory Rate 2024-09-02 08:52:00 19.00 /min Jacobo F Eduar BP Systolic 2024-06-10 09:13:00 128 mm[Hg] Step hen F Eduar BP Diastolic 2024-06-10 09:13:00 86 mm[Hg] Tim phen F Eduar Weight Measured 2024-06-10 09:13:00 268.80 pounds Jacobo F Eduar Height Measured 2024-06-10 09:13:00 66.00 inches Jacobo F Eduar Body Temperature 2024-06-10 09:13:00 97.80 degrees Jacobo F Eduar Heart Rate 2024-06-10 09:13:00 77.00 /min Chayo en F Eduar Respiratory Rate 2024-06-10 09:13:00 18.00 /min Jacobo F Eduar BP Systolic 2024-03-13 09:20:00 138 mm[Hg] Step hen F Eduar BP Diastolic 2024-03-13 09:20:00 93 mm[Hg] Tim phen F Eduar Weight Measured 2024-03-13 09:20:00 271.80 pounds Jacobo F Eduar Height Measured 2024-03-13 09:20:00 66.00 inches Jacobo F Eduar Body Temperature 2024-03-13 09:20:00 97.50 degrees Jacobo F Eduar Heart Rate 2024-03-13 09:20:00 73.00 /min Chayo en F Eduar Respiratory Rate 2024-03-13 09:20:00 18.00 /min Jacobo F Eduar BP Systolic 2023-12-21 08:29:00 138 mm[Hg] Step hen F Eduar BP Diastolic 2023-12-21 08:29:00 93 mm[Hg] Tim phen F Eduar Weight Measured 2023-12-21 08:29:00 265.00 pounds Jacobo F Eduar Height Measured 2023-12-21 08:29:00 66.00 inches Jacobo F Eduar Body Temperature 2023-12-21 08:29:00 97.20 degrees Jacobo F Eduar Heart Rate 2023-12-21 08:29:00 76.00 /min Chayo en F Eduar Respiratory Rate 2023-12-21 08:29:00 Jacobo F Eduar BP Systolic 2023-10-03 10:04:00 125 mm[Hg] Step hen F Eduar BP Diastolic 2023-10-03 10:04:00 71 mm[Hg] Tim phen F Eduar Weight Measured 2023-10-03 10:04:00 260.80 pounds Jacobo F Eduar Height Measured 2023-10-03 10:04:00 66.00 inches Jacobo F Eduar Body Temperature 2023-10-03 10:04:00 98.20 degrees Jacobo F Eduar Heart Rate 2023-10-03 10:04:00 80.00 /min Chayo en F Eduar Respiratory Rate 2023-10-03 10:04:00 Jacobo F Eduar BP Systolic 2023-09-14 14:22:00 127 mm[Hg] Step hen F Eduar BP Diastolic 2023-09-14 14:22:00 74 mm[Hg] Tim phen F Eduar Weight Measured 2023-09-14 14:22:00 254.80 pounds Jacobo F Eduar Height Measured 2023-09-14 14:22:00 66.00 inches Jacobo F Eduar Body Temperature 2023-09-14 14:22:00 98.10 degrees Jacobo F Eduar Heart Rate 2023-09-14 14:22:00 90.00 /min Chayo en F Eduar Respiratory Rate 2023-09-14 14:22:00 Jacobo F Eduar BP Systolic 2023-09-06 14:35:00 136 mm[Hg] Step hen F Eduar BP Diastolic 2023-09-06 14:35:00 89 mm[Hg] Tim phen F Eduar Weight Measured 2023-09-06 14:35:00 250.00 pounds Jacobo F Eduar Height Measured 2023-09-06 14:35:00 66.00 inches Jacobo F Eduar Body Temperature 2023-09-06 14:35:00 97.40 degrees Jacobo F Eduar Heart Rate 2023-09-06 14:35:00 73.00 /min Chayo en F Eduar Respiratory Rate 2023-09-06 14:35:00 Jacobo F Eduar BP Systolic 2023-09-01 10:46:00 114 mm[Hg] Step hen F Eduar BP Diastolic 2023-09-01 10:46:00 80 mm[Hg] Tim phen F Eduar Weight Measured 2023-09-01 10:46:00 251.00 pounds Jacobo F Eduar Height Measured 2023-09-01 10:46:00 66.00 inches Jacobo F Eduar Body Temperature 2023-09-01 10:46:00 98.30 degrees Jacobo F Eduar Heart Rate 2023-09-01 10:46:00 84.00 /min Chayo en F Eduar Respiratory Rate 2023-09-01 10:46:00 18.00 /min Jacobo F Eduar BP Systolic 2023-07-20 14:11:00 116 mm[Hg] Step hen F Eduar BP Diastolic 2023-07-20 14:11:00 72 mm[Hg] Tim phen F Eduar Weight Measured 2023-07-20 14:11:00 260.20 pounds Jacobo F Eduar Height Measured 2023-07-20 14:11:00 66.00 inches Jacobo F Eduar Body Temperature 2023-07-20 14:11:00 97.40 degrees Jacobo F Eduar Heart Rate 2023-07-20 14:11:00 83.00 /min Chayo en F Eduar Respiratory Rate 2023-07-20 14:11:00 Jacobo F Eduar BP Systolic 2023-06-15 15:29:00 128 mm[Hg] Step hen F Eduar BP Diastolic 2023-06-15 15:29:00 78 mm[Hg] Tim phen F Eduar Weight Measured 2023-06-15 15:29:00 264.20 pounds Jacobo F Eduar Height Measured 2023-06-15 15:29:00 66.00 inches Jacobo F Eduar Body Temperature 2023-06-15 15:29:00 97.40 degrees Jacobo F Eduar Heart Rate 2023-06-15 15:29:00 86.00 /min Chayo en F Eduar Respiratory Rate 2023-06-15 15:29:00 Jacobo F Eduar BP Systolic 2023-06-12 08:25:00 121 mm[Hg] Step hen F Eduar BP Diastolic 2023-06-12 08:25:00 73 mm[Hg] Tim phen F Eduar Weight Measured 2023-06-12 08:25:00 262.40 pounds Jacobo Witt Height Measured 2023-06-12 08:25:00 66.00 inches Jacobo Witt Body Temperature 2023-06-12 08:25:00 97.40 degrees Jcaobo Shubham Witt Heart Rate 2023-06-12 08:25:00 71.00 /min Chayo en F Eduar Respiratory Rate 2023-06-12 08:25:00 Jacobo Shubham Witt BP Systolic 2023-05-23 14:38:00 122 mm[Hg] Step hen F Eduar BP Diastolic 2023-05-23 14:38:00 86 mm[Hg] Tim Witt Weight Measured 2023-05-23 14:38:00 266.00 pounds Jacobo Witt Height Measured 2023-05-23 14:38:00 66.00 inches Jacobo Witt Body Temperature 2023-05-23 14:38:00 98.00 degrees Jacobo Witt Heart Rate 2023-05-23 14:38:00 89.00 /min Chayo en Shubham Witt Respiratory Rate 2023-05-23 14:38:00 18.00 /min Jacobo Witt BP Systolic 2022-10-31 16:15:00 120 mm[Hg] BP [...] Respiratory Rate 2021-03-19 14:36:00 18.00 /min Procedures Procedure Date / Time Performed Performing Clinicia n Source LS RAPID STREP ASSAY-LAB TEST 2024-07-24 19:04:00 Bety Martinez - External LS RAPID FLU ASSAY-LAB TEST 2024-07-24 19:04:00 Bety Martinez - External Plan of Care Planned Activity Planned Date Details Comments Source Goal Plan of Care Note [code = 85903-2] Goal Plan of Care Note [code = 86509-1] Goal Plan of Care Note [code = 19139-6] Goal Plan of Care Note [code = 42917-6] Goal Plan of Care Note [code = 07611-7] Goal Plan of Care Note [code = 54275-2] Goal Plan of Care Note [code = 27377-9] Goal Plan of Care Note [code = 56693-1] Goal Plan of Care Note [code = 08909-2] Goal Plan of Care Note [code = 26772-3] Goal Plan of Care Note [code = 34294-5] Goal Plan of Care Note [code = 82921-1] Goal Plan of Care Note [code = 99257-7] Goal Plan of Care Note [code = 58901-1] Goal Plan of Care Note [code = 23494-6] Goal Plan of Care Note [code = 15700-8] Goal Plan of Care Note [code = 38986-3] Goal Plan of Care Note [code = 90245-0] Goal Plan of Care Note [code = 80090-4] Goal Plan of Care Note [code = 20200-4] Goal Plan of Care Note [code = 73567-1] Goal Plan of Care Note [code = 26175-5] Goal Plan of Care Note [code = 71831-7] Goal Plan of Care Note [code = 76758-1] Goal Plan of Care Note [code = 35458-6] Goal Plan of Care Note [code = 91264-1] Goal Plan of Care Note [code = 53173-7] Goal Plan of Care Note [code = 61171-3] Goal Plan of Care Note [code = 99125-2] Goal Plan of Care Note [code = 99718-5] Goal Plan of Care Note [code = 17670-3] Goal Plan of Care Note [code = 93962-0] Goal Plan of Care Note [code = 02991-7] Goal Plan of Care Note [code = 11660-2] Goal Plan of Care Note [code = 04964-0] Goal Plan of Care Note [code = 69449-4] Goal Plan of Care Note [code = 08765-5] Goal Plan of Care Note [code = 06137-7] Goal Plan of Care Note [code = 50762-1] Goal Plan of Care Note [code = 16903-4] Goal Plan of Care Note [code = 81126-5] Goal Plan of Care Note [code = 71813-6] Goal Plan of Care Note [code = 65975-0] Goal Plan of Care Note [code = 19516-0] Goal Plan of Care Note [code = 72535-7] Goal Plan of Care Note [code = 42853-5] Goal Plan of Care Note [code = 13025-5] Goal Plan of Care Note [code = 18817-2] Goal Plan of Care Note [code = 70844-2] Goal Plan of Care Note [code = 62031-7] Goal Plan of Care Note [code = 56757-9] Goal Plan of Care Note [code = 05078-6] Goal Plan of Care Note [code = 42452-2] Goal Plan of Care Note [code = 00999-8] Goal Plan of Care Note [code = 47879-3] Goal Plan of Care Note [code = 08890-4] Goal Plan of Care Note [code = 67667-4] Goal Plan of Care Note [code = 88837-2] Goal Plan of Care Note [code = 36916-2] Goal Plan of Care Note [code = 60823-6] Goal Plan of Care Note [code = 29140-7] Goal Plan of Care Note [code = 77771-7] Goal Plan of Care Note [code = 55865-6] Goal Plan of Care Note [code = 34072-9] Goal Plan of Care Note [code = 59855-1] Goal Plan of Care Note [code = 97471-4] Goal Plan of Care Note [code = 66010-6] Goal Plan of Care Note [code = 19438-3] Goal Plan of Care Note [code = 81238-8] Goal Plan of Care Note [code = 46728-7] Goal Plan of Care Note [code = 83099-3] Goal Plan of Care Note [code = 49324-7] Goal Plan of Care Note [code = 79657-9] Goal Plan of Care Note [code = 40977-9] Goal Plan of Care Note [code = 22102-0] Goal Plan of Care Note [code = 38622-5] Goal Plan of Care Note [code = 11322-7] Goal Plan of Care Note [code = 62404-2] Goal Plan of Care Note [code = 02320-1] Goal Plan of Care Note [code = 47897-7] Goal Plan of Care Note [code = 68081-7] Goal Plan of Care Note [code = 16210-9] Goal Plan of Care Note [code = 31127-2] Goal Plan of Care Note [code = 18475-9] Goal Plan of Care Note [code = 02298-3] Goal Plan of Care Note [code = 69407-8] Goal Plan of Care Note [code = 79777-0] Goal Plan of Care Note [code = 64198-7] Goal Plan of Care Note [code = 36863-7] Goal Plan of Care Note [code = 65884-5] Goal Plan of Care Note [code = 11806-5] Goal Plan of Care Note [code = 52025-5] Goal Plan of Care Note [code = 71687-3] Goal Plan of Care Note [code = 08009-7] Goal Plan of Care Note [code = 45363-3] Goal Plan of Care Note [code = 35567-5] Goal Plan of Care Note [code = 81651-7] Goal Plan of Care Note [code = 03739-1] Goal Plan of Care Note [code = 66139-6] Goal Plan of Care Note [code = 61562-0] Goal Plan of Care Note [code = 29290-2] Goal Plan of Care Note [code = 53949-7] Goal Plan of Care Note [code = 32810-2] Goal Plan of Care Note [code = 60660-1] Goal Plan of Care Note [code = 96572-6] Goal Plan of Care Note [code = 20586-2] Goal Plan of Care Note [code = 01020-9] Goal Plan of Care Note [code = 33657-7] Goal Plan of Care Note [code = 24849-5] Goal Plan of Care Note [code = 20026-9] Goal Plan of Care Note [code = 08733-1] Goal Plan of Care Note [code = 60342-4] Goal Plan of Care Note [code = 03919-8] Goal Plan of Care Note [code = 98214-8] Goal Plan of Care Note [code = 62640-0] Goal Plan of Care Note [code = 30210-4] Goal Plan of Care Note [code = 64688-7] Goal Plan of Care Note [code = 09196-8] Goal Plan of Care Note [code = 43582-5] Goal Plan of Care Note [code = 27721-2] Goal Plan of Care Note [code = 81734-1] Goal Plan of Care Note [code = 50878-6] Goal Plan of Care Note [code = 54214-9] Goal Plan of Care Note [code = 88097-5] Goal Plan of Care Note [code = 90466-7] Goal Plan of Care Note [code = 64009-5] Goal Plan of Care Note [code = 97977-1] Goal Plan of Care Note [code = 20033-7] Goal Plan of Care Note [code = 79709-7] Goal Plan of Care Note [code = 31242-7] Goal Plan of Care Note [code = 55470-0] Goal Plan of Care Note [code = 01829-9] Goal Plan of Care Note [code = 81275-8] Goal Plan of Care Note [code = 49848-7] Goal Plan of Care Note [code = 33102-3] Goal Plan of Care Note [code = 73321-4] Goal Plan of Care Note [code = 73957-8] Goal Plan of Care Note [code = 12405-2] Goal Plan of Care Note [code = 68290-6] Goal Plan of Care Note [code = 16189-9] Goal Plan of Care Note [code = 97464-9] Goal Plan of Care Note [code = 93673-7] Goal Plan of Care Note [code = 59305-7] Goal Plan of Care Note [code = 73548-4] Goal Plan of Care Note [code = 24748-0] Goal Plan of Care Note [code = 88396-4] Goal Plan of Care Note [code = 45426-6] Goal Plan of Care Note [code = 05315-5] Goal Plan of Care Note [code = 95921-6] Goal Plan of Care Note [code = 58199-2] Goal Plan of Care Note [code = 05048-0] Goal Plan of Care Note [code = 01139-0] Goal Plan of Care Note [code = 21462-7] Goal Plan of Care Note [code = 86004-9] Goal Plan of Care Note [code = 38652-1] Goal Plan of Care Note [code = 05675-0] Goal Plan of Care Note [code = 30635-9] Goal Plan of Care Note [code = 88902-2] Goal Plan of Care Note [code = 39129-5] Goal Plan of Care Note [code = 01777-9] Goal Plan of Care Note [code = 13925-2] Goal Plan of Care Note [code = 60846-6] Goal Plan of Care Note [code = 36288-9] Goal Plan of Care Note [code = 18615-4] Goal Plan of Care Note [code = 06099-0] Goal Plan of Care Note [code = 85577-0] Goal Plan of Care Note [code = 97822-2] Goal Plan of Care Note [code = 62988-1] Goal Plan of Care Note [code = 29005-8] Goal Plan of Care Note [code = 08853-6] Goal Plan of Care Note [code = 61530-8] Goal Plan of Care Note [code = 19811-0] Goal Plan of Care Note [code = 18356-4] Goal Plan of Care Note [code = 80085-8] Goal Plan of Care Note [code = 99750-2] Goal Plan of Care Note [code = 09672-7] Goal Plan of Care Note [code = 09421-2] Goal Plan of Care Note [code = 38152-9] Goal Plan of Care Note [code = 95969-0] Goal Plan of Care Note [code = 09349-9] Goal Plan of Care Note [code = 76999-9] Goal Plan of Care Note [code = 20122-8] Goal Plan of Care Note [code = 59577-5] Goal Plan of Care Note [code = 79646-5] Goal Plan of Care Note [code = 12916-6] Goal Plan of Care Note [code = 83814-9] Goal Plan of Care Note [code = 22406-4] Goal Plan of Care Note [code = 94415-9] Goal Plan of Care Note [code = 96399-0] Goal Plan of Care Note [code = 63350-5] Goal Plan of Care Note [code = 57045-2] Goal Plan of Care Note [code = 46081-8] Goal Plan of Care Note [code = 98456-1] Goal Plan of Care Note [code = 10209-9] Goal Plan of Care Note [code = 02897-8] Goal Plan of Care Note [code = 20735-8] Goal Plan of Care Note [code = 95798-0] Goal Plan of Care Note [code = 50607-3] Goal Plan of Care Note [code = 31278-3] Goal Plan of Care Note [code = 71533-0] Goal Plan of Care Note [code = 91477-6] Goal Plan of Care Note [code = 54754-7] Goal Plan of Care Note [code = 05537-3] Goal Plan of Care Note [code = 18163-2] Goal Plan of Care Note [code = 01749-2] Goal Plan of Care Note [code = 06796-6] Goal Plan of Care Note [code = 68065-2] Goal Plan of Care Note [code = 36336-9] Goal Plan of Care Note [code = 84184-9] Goal Plan of Care Note [code = 21956-7] Goal Plan of Care Note [code = 66124-9] Goal Plan of Care Note [code = 76655-6] Goal Plan of Care Note [code = 36345-6] Goal Plan of Care Note [code = 75010-6] Goal Plan of Care Note [code = 55079-4] Goal Plan of Care Note [code = 37391-9] Goal Plan of Care Note [code = 77299-0] Goal Plan of Care Note [code = 40823-6] Goal Plan of Care Note [code = 82333-4] Goal Plan of Care Note [code = 91194-2] Goal Plan of Care Note [code = 61837-3] Goal Plan of Care Note [code = 94807-8] Goal Plan of Care Note [code = 54427-9] Goal Plan of Care Note [code = 49814-7] Goal Plan of Care Note [code = 88059-4] Goal Plan of Care Note [code = 89214-9] Goal Plan of Care Note [code = 16029-0] Encounters Start Date/Time End Date/Time Encounter Type Admission Type Attending Clinicians Care Facility Care Department Encounter ID Source 2025-02-04 15:40:00 2025-02-04 15:40:00 Outpatient HERMELINDO QUICK [id number] [facility] Iqbal 2024-10-25 14:30:00 2024-10-25 14:30:00 Outpatient DARCY MCGEELUIS JOHNSON [id number] Meagan aravind 2024-09-20 00:00:00 2024-09-20 00:00:00 Outpatient MD MEAGAN HARDEN [id number] Meagan ybaravind 2024-09-12 00:00:00 2024-09-12 00:00:00 Outpatient DARCY MCGEELUIS JOHNSON [id number] [facility] 2024-09-11 00:00:00 2024-09-11 00:00:00 Outpatient PREDARCY POSADA MEAGAN [id number] Meagan aravind 2024-09-02 11:15:00 2024-09-02 11:15:00 Outpatient DARCY MCGEE MEAGAN [id number] [facility] 2024-09-02 08:49:50 2024-09-02 08:49:50 Outpatient SFA SFA 1125 Jacob[address] Witt 2024-09-02 00:00:00 2024-09-02 00:00:00 Outpatient Visit SFA [id number]-fdc7fd [id number] Jacobo Witt 2024-08-19 16:30:00 2024-08-19 16:30:00 Outpatient DEENA MILAN [id number] [facility] 2024-08-07 16:00:00 2024-08-07 16:00:00 Outpatient LEI CURIEL [id number] [facility] 2024-08-05 15:45:00 2024-08-05 15:45:00 Outpatient YOSHI WARD [id number] [facility] 2024-07-26 10:45:00 2024-07-26 10:45:00 Outpatient DARCY MCGEE MEAGAN JOHNSON [id number] [facility] 2024-07-24 14:20:00 2024-07-24 14:20:00 Outpatient MICHELLE JOHNSON [id number] [facility] 2024-07-24 13:45:00 2024-07-24 13:45:00 Outpatient BETY MARTINEZ MEAGAN JOHNSON [id number] [facility] 2024-07-05 00:00:00 2024-07-05 00:00:00 Outpatient DARCY MCGEE MEAGAN [id number] [facility] 2024-07-05 00:00:00 2024-07-05 00:00:00 Outpatient NANCY FERGUSON MEAGAN JOHNSON [id number] [facility] 2024-07-04 16:30:00 2024-07-04 16:30:00 Outpatient MICHELLE MEAGAN JOHNSON [id number] [facility] 2024-07-04 15:45:00 2024-07-04 15:45:00 Outpatient BETY MARTINEZ MEAGAN JOHNSON [id number] [facility] 2024-07-03 00:00:00 2024-07-03 00:00:00 Outpatient DARCY MCGEE MEAGAN JOHNSON [id number] [facility] 2024-07-01 11:00:00 2024-07-01 11:00:00 Outpatient NELSONGARRY [facility] [id number] [facility]24-[facility]-28 00:00:00 2024-06-28 00:00:00 Outpatient NANCY FERGUSON MEAGAN JOHNSON [id number] [facility] 2024-06-25 00:00:00 2024-06-25 00:00:00 Outpatient MARTY NANCY MEAGAN JOHNSON [id number] [facility] 2024-06-21 00:00:00 2024-06-21 00:00:00 Outpatient MD MEAGAN HARDEN [id number] [facility] 2024-06-12 15:00:00 2024-06-12 15:00:00 Outpatient BEVERLYAJDARCY Turcios MEAGAN JOHNSON [id number] [facility] 2024-06-10 08:59:22 2024-06-10 08:59:22 Outpatient SFA DOTTIE 901 Jacobo Witt 2024-06-10 00:00:00 2024-06-10 00:00:00 Outpatient Visit [facility] [id number] Jacobo Witt 2024-05-31 00:00:00 2024-05-31 00:00:00 Outpatient DARCY MCGEE [id number] Meagan ybaravind 2024-05-20 15:40:00 2024-05-20 15:40:00 Outpatient BRAYAN FONTENOT [id number] [facility] 2024-05-13 15:00:00 2024-05-13 15:00:00 Outpatient MEAGAN JOHNSON [id number] [facility] 2024-05-13 14:00:00 2024-05-13 14:00:00 Outpatient MEAGAN JOHNSON [id number] [facility] 2024-05-07 00:00:00 2024-05-07 00:00:00 Outpatient MEAGAN JOHNSON [id number] [facility] 2024-05-07 00:00:00 2024-05-07 00:00:00 Outpatient [facility] MEAGAN JOHNSON [id number] Meagan ybaravind 2024-05-02 14:40:00 2024-05-02 14:40:00 Outpatient MEAGAN JOHNSON [id number] [facility] 2024-05-02 13:00:00 2024-05-02 13:00:00 Outpatient MEAGAN JOHNSON [id number] [facility] 2024-04-29 10:00:00 2024-04-29 10:00:00 Outpatient DARCY MCGEE [id number] [facility] 2024-04-02 09:00:00 2024-04-02 09:00:00 Outpatient NANCY FERGUSON [id number] Meagan Seybold 2024-03-22 00:00:00 2024-03-22 00:00:00 Outpatient DARCY MCGEE [id number] [facility] 2024-03-20 10:00:00 2024-03-20 10:00:00 Outpatient BRAYAN FONTENOT [id number] Meagan Farida 2024-03-19 00:00:00 2024-03-19 00:00:00 Outpatient DARCY MCGEE MEAGAN JOHNSON [id number] Meagan Iqbal 2024-03-18 13:00:00 2024-03-18 13:00:00 Outpatient LAB90 MEAGAN JOHNSON [id number] Meagan Farida 2024-03-18 11:30:00 2024-03-18 11:30:00 Outpatient DARCY MCGEE MEAGAN JOHNSON [id number] Meagan Novaaravind 2024-03-13 09:16:25 2024-03-13 09:16:25 Outpatient SFA SFA 604 Jacobo Jalloh Eduar 2024-03-13 00:00:00 2024-03-13 00:00:00 Outpatient Visit [facility] [id number] Jacobo Jalloh Eduar 2024-03-11 09:15:00 2024-03-11 09:15:00 Outpatient CANDACE RYAN [id number] [facility] 2024-03-11 00:00:00 2024-03-11 00:00:00 Outpatient DARCY MCGEE MEAGAN JOHNSON [id number] Meagan [facility] 2024-02-15 00:00:00 2024-02-15 00:00:00 Outpatient NANCY FERGUSON [id number] [facility] 2024-02-15 00:00:00 2024-02-15 00:00:00 Outpatient NANCY FERGUSON [id number] [facility] 2024-02-13 00:00:00 2024-02-13 00:00:00 Outpatient MD MEAGAN HARDEN [id number] [facility] 2024-01-30 18:30:00 2024-01-30 18:30:00 Outpatient DAVID DAMICO [id number] [facility] 2024-01-30 18:15:00 2024-01-30 18:15:00 Outpatient MEAGAN JOHNSON [id number] Meagan [facility] 2024-01-22 00:00:00 2024-01-22 00:00:00 Outpatient NANCY FERGUSON MEAGAN [id number] Meagan [facility] 2024-01-15 00:00:00 2024-01-15 00:00:00 Outpatient NANCY FERGUSON MEAGAN [id number] Meagan [facility] 2024-01-11 00:00:00 2024-01-11 00:00:00 Outpatient DARCY MCGEE [facility] [id number] [facility]:00:00 2024-01-09 00:00:00 Outpatient NANCY FERGUSON MEAGAN JOHNSON [id number] [facility] 2024-01-06 00:00:00 2024-01-06 00:00:00 Outpatient NANCY FERGUSON MEAGAN JOHNSON [id number] Meagan [facility] 2024-01-05 00:00:00 2024-01-05 00:00:00 Outpatient NANCY FERGUSON MEAGAN [id number] Meagan [facility] 2024-01-04 00:00:00 2024-01-04 00:00:00 Outpatient NANCY FERGUSON MEAGAN JOHNSON [id number] [facility] 2024-01-03 00:00:00 2024-01-03 00:00:00 Outpatient MD MEAGAN HARDEN [id number] Meagan [facility] 2024-01-03 00:00:00 2024-01-03 00:00:00 Outpatient NANCY FERGUSON MEAGAN [id number] Meagan [facility] 2024-01-01 15:15:00 2024-01-01 15:15:00 Outpatient LABAnthony MEAGAN JOHNSON [id number] [facility] 2024-[facility]-01 14:30:00 2024-01-01 14:30:00 Outpatient NANCY FERGUSON MEAGAN JOHNSON [id number] [facility] 2023-12-21 08:22:55 2023-12-21 08:22:55 Outpatient SFA DOTTIE 0314 Jacobo Witt 2023-10-03 10:04:01 2023-10-03 10:04:01 Outpatient SFA SFA 1226 Jacobo Witt 2023-09-25 11:14:39 2023-09-25 11:14:39 Outpatient SFA SFA 1218 Jacobo Witt 2023-09-14 14:15:46 2023-09-14 14:15:46 Outpatient SFA SFA 1207 Jacobo Witt 2023-09-06 14:30:20 2023-09-06 14:30:20 Outpatient SFA SFA 1129 Jacobo Witt 2023-09-01 10:37:11 2023-09-01 10:37:11 Outpatient SFA SFA 112 Jacobo Witt 2023-07-20 14:03:09 2023-07-20 14:03:09 Outpatient SFA SFA 1012 Jacobo Witt 2023-06-15 15:28:12 2023-06-15 15:28:12 Outpatient SFA SFA [id number] Jacobo Jalloh Eduar 2023-06-12 08:11:27 2023-06-12 08:11:27 Outpatient SFA SFA 0904 Jacobo Witt 2023-05-23 14:29:41 2023-05-23 14:29:41 Outpatient SFA SFA 0815 Jacobo Witt 2023-05-16 09:01:39 2023-05-16 09:01:39 Outpatient SFA SFA [id number] Jacobo Witt 2023-05-12 13:13:38 2023-05-12 13:13:38 Outpatient SFA SFA [id number] Jacobo Jalloh Eduar 2023-05-03 13:03:34 2023-05-03 13:03:34 Outpatient SFA SFA 0726 Jacobo Witt 2023-05-02 13:40:38 2023-05-02 13:40:38 Outpatient SFA SFA 0725 Jacobo Witt 2023-02-07 14:17:12 2023-02-07 14:17:12 Outpatient SFA SFA [id number] Jacobo Witt 2022-11-02 14:59:01 2022-11-02 14:59:01 Outpatient SFA [facility] [id number] Jacobo Witt 2022-10-31 16:09:17 2022-10-31 16:09:17 Outpatient SFA [facility] 0123 Jacobo Witt 2022-10-31 00:00:00 2022-10-31 00:00:00 Outpatient Visit [id number] [id number] -[id number] [id number] 2280-11-03 14:41:35 2022-08-11 14:41:35 Outpatient SFA [facility] [id number] Jacobo Witt 2022-08-11 00:00:00 2022-08-11 00:00:00 Outpatient Visit [id number] -n0rb-jr1 [id number] h9z-037r-u 0ab-ad7a1d 0820a0 2022-07-25 13:07:55 2022-07-25 13:07:55 Outpatient SFA [facility] 1017 Jacobo Witt 2022-07-25 00:00:00 2022-07-25 00:00:00 Outpatient Visit [id number] -8500-db2 [id number] 3w3-52a4-5 500-db2f1d [id number] 2022-06-06 00:00:00 2022-06-06 00:00:00 Outpatient Visit [id number] [id number] -hv00-143 [id number] g22-3c6h-x o05-435x23 d91e80 2022-05-20 00:00:00 2022-05-20 00:00:00 Outpatient Visit [id number] -[id number]-361 [id number] [id number] 063-40e0-a 64a-1756ed bf6a3f 2022-05-10 00:00:00 2022-05-10 00:00:00 Outpatient Visit 1ldad4g8- 8ud7-654h -8301-5f8 [id number] be1-435f-8 [id number] 10e324 Results Test Description Test Time Test Comments Results Result Co mments Source COMPREHENSIVE METABOLIC [id number] 04:48:19* Test Item Value Reference Range Interpretation Comme nts GLUCOSE (test code = 2216) 91 MG/DL 70-99 BUN (test code = 220) 7 MG/DL 6-20 CREATININE (test code = 2214) 0.74 MG/DL 0.60-1.30 eGFR (2020 CKD-EPI) (test code = 28983) 105 ML/MIN/1.73 >60 CALC BUN/CREAT (test code = 2235) 9 RATIO 6-28 SODIUM (test code = 223) 143 MEQ/L 133-146 POTASSIUM (test code = 2228) 4.3 MEQ/L 3.5-5.4 CHLORIDE (test code = 2215) 108 MEQ/L 95-107 H CARBON DIOXIDE (test code = 2206) 25 MEQ/L 19-31 CALCIUM (test code = 2209) 9.3 MG/DL 8.5-10.5 PROTEIN, TOTAL (test code = 2229) 7.3 G/DL 6.1-8.3 ALBUMIN (test code = 2201) 3.9 G/DL 3.5-5.2 CALC GLOBULIN (test code = 2240) 3.4 G/DL 1.9-3.7 CALC A/G RATIO (test code = 2234) 1.1 RATIO 1.0-2.6 BILIRUBIN, TOTAL (test code = 2207) 0.4 MG/DL <=1.2 ALKALINE PHOSPHATASE (test code = 2204) 96 U/L 40-112 AST (test code = 2218) 14 U/L 9-40 ALT (test code = 2219) 17 U/L 5-40 LIPID [id number] 04:48:19* Test Item Value Reference Range Interpretation Comme nts CHOLESTEROL (test code = 2210) 154 MG/DL <200 TRIGLYCERIDES (test code = 2232) 81 MG/DL <150 HDL CHOLESTEROL (test code = 2220) 40 MG/DL >39 CALC LDL CHOL (test code = 2237) 97 MG/DL <100 NOTE: CALCULATED LDL IS BASED ON SHAMEKA-JACOBSON METHOD WHICHINCLUDES ADJUSTABLE TRIGLYCERIDE:VLDL CHOLESTEROL RATIO.THIS FACTOR VARIES BY MEASURED TRIGLYCERIDE AND NON-HDLCHOLESTEROL CONCENTRATIONS WITH INCREASED CALCULATED LDL SEENIN HIGHER TRIGLYCERIDE OR LOWER NON-HDL SPECIMENS. FOR MOREINFORMATION, SEE CLIENT ANNOUNCEMENT AT [email or web address] RISK RATIO LDL/HDL (test code = 2238) 2.43 RATIO <3.22 HEMOGLOBIN [id number] 02:26:02* Test Item Value Reference Range Interpretation Comme nts HEMOGLOBIN A1c (test code = 54000) 5.9 % 4.2-5.6 H [employer] GUIDELINES FOR HGB A1C: PREDIABETES/INCREASED RISK . . . . . . . 5.7-6.4% DIAGNOSIS OF DIABETES . . . . . . . . . >=6.5% WITH CONFIRMATION OR APPROPRIATE SYMPTOMS NOTE: ASSAY MAY BE AFFECTED BY HEMOGLOBINOPATHIES (SICKLE CELL ANEMIA, S-C DISEASE, OTHERS) OR ARTIFICIALLY LOWERED BY DECREASED RED CELL SURVIVAL (HEMOLYTIC ANEMIAS, BLOOD LOSS, ETC.). CONSIDER ALTERNATE TESTING OR LABORATORY CONSULTATION. ALBUMIN/CREATININE RATIO, RANDOM [id number] 00:00:00* Test Item Value Reference Range Interpretation Comme nts CREATININE, URINE, CONC. (te st code = 2072) 143.9 MG/DL ALBUMIN, URINE, RANDOM (test code = 21512) 0.6 MG/DL CALC ALBUMIN/CREAT, RND (valeria t code = 58774) 4 MG/G Jacobo F AustinCOMPREHENSIVE METABOLIC [id number] 00:00:00* Test Item Value Reference Range Interpretation Comme nts GLUCOSE (test code = 2217) 91 MG/DL BUN (test code = 2208) 7 MG/DL CREATININE (test code = 2214) 0.74 MG/DL eGFR (2020 CKD-EPI) (test code = 84918) 105 ML/MIN/1.73 CALC BUN/CREAT (test code = 2235) 9 RATIO SODIUM (test code = 2231) 143 MEQ/L POTASSIUM (test code = 2228) 4.3 MEQ/L CHLORIDE (test code = 2215) 108 MEQ/L CARBON DIOXIDE (test code = 2206) 25 MEQ/L CALCIUM (test code = 2209) 9.3 MG/DL PROTEIN, TOTAL (test code = 2229) 7.3 G/DL ALBUMIN (test code = 2201) 3.9 G/DL CALC GLOBULIN (test code = 2240) 3.4 G/DL CALC A/G RATIO (test code = 2234) 1.1 RATIO BILIRUBIN, TOTAL (test code = 2207) 0.4 MG/DL ALKALINE PHOSPHATASE (test code = 2204) 96 U/L AST (test code = 2218) 14 U/L ALT (test code = 2219) 17 U/L Jacobo WittLIPID [id number] 00:00:00* Test Item Value Reference Range Interpretation Comme nts CHOLESTEROL (test code = 2210) 154 MG/DL TRIGLYCERIDES (test code = 2232) 81 MG/DL HDL CHOLESTEROL (test code = 2220) 40 MG/DL CALC LDL CHOL (test code = 2237) 97 MG/DL RISK RATIO LDL/HDL (test cod e = 2238) 2.43 RATIO Jacobo WittHEMOGLOBIN [id number] 00:00:00* Test Item Value Reference Range Interpretation Comme [facility] HEMOGLOBIN A1c (test code = 39833) 5.9 % Jacobo WittALBUMIN/CREATININE RATIO, RANDOM [id number] 00:00:00* Test Item Value Reference Range Interpretation Comme [facility] CREATININE, URINE, CONC. (te st code = 2072) 143.9 MG/DL ALBUMIN, URINE, RANDOM (test code = 62794) 0.6 MG/DL CALC ALBUMIN/CREAT, RND (valeria t code = 34103) 4 MG/G Jacobo WittCOMPREHENSIVE METABOLIC [id number] 00:00:00* Test Item Value Reference Range Interpretation Comme nts GLUCOSE (test code = 2217) 91 MG/DL BUN (test code = 8) 7 MG/DL CREATININE (test code = 2214) 0.74 MG/DL eGFR (2020 CKD-EPI) (test code = 31955) 105 ML/MIN/1.73 CALC BUN/CREAT (test code = 2235) 9 RATIO SODIUM (test code = 2231) 143 MEQ/L POTASSIUM (test code = 2228) 4.3 MEQ/L CHLORIDE (test code = 2215) 108 MEQ/L CARBON DIOXIDE (test code = 2206) 25 MEQ/L CALCIUM (test code = 2209) 9.3 MG/DL PROTEIN, TOTAL (test code = 2229) 7.3 G/DL ALBUMIN (test code = 2201) 3.9 G/DL CALC GLOBULIN (test code = 2240) 3.4 G/DL CALC A/G RATIO (test code = 2234) 1.1 RATIO BILIRUBIN, TOTAL (test code = 2207) 0.4 MG/DL ALKALINE PHOSPHATASE (test code = 2204) 96 U/L AST (test code = 221) 14 U/L ALT (test code = 2219) 17 U/L Jacobo WittLIPID [id number] 00:00:00* Test Item Value Reference Range Interpretation Comme nts CHOLESTEROL (test code = 2210) 154 MG/DL TRIGLYCERIDES (test code = 2232) 81 MG/DL HDL CHOLESTEROL (test code = 2220) 40 MG/DL CALC LDL CHOL (test code = 2237) 97 MG/DL RISK RATIO LDL/HDL (test cod e = 2238) 2.43 RATIO Jacobo WittHEMOGLOBIN [id number] 00:00:00* Test Item Value Reference Range Interpretation Comme nts HEMOGLOBIN A1c (test code = 22592) 5.9 % Jacobo WittALBUMIN/CREATININE RATIO, RANDOM [id number] 00:00:00* Test Item Value Reference Range Interpretation Comme nts CREATININE, URINE, CONC. (te st code = 2072) 143.9 MG/DL ALBUMIN, URINE, RANDOM (test code = 13161) 0.6 MG/DL CALC ALBUMIN/CREAT, RND (valeria t code = 81069) 4 MG/G Jacobo WittCOMPREHENSIVE METABOLIC [id number] 00:00:00* Test Item Value Reference Range Interpretation Comme nts GLUCOSE (test code = 2217) 91 MG/DL BUN (test code = 8) 7 MG/DL CREATININE (test code = 2214) 0.74 MG/DL eGFR (2020 CKD-EPI) (test code = 28971) 105 ML/MIN/1.73 CALC BUN/CREAT (test code = 2235) 9 RATIO SODIUM (test code = 2231) 143 MEQ/L POTASSIUM (test code = 2228) 4.3 MEQ/L CHLORIDE (test code = 2215) 108 MEQ/L CARBON DIOXIDE (test code = 2206) 25 MEQ/L CALCIUM (test code = 2209) 9.3 MG/DL PROTEIN, TOTAL (test code = 2229) 7.3 G/DL ALBUMIN (test code = 2201) 3.9 G/DL CALC GLOBULIN (test code = 2240) 3.4 G/DL CALC A/G RATIO (test code = 2234) 1.1 RATIO BILIRUBIN, TOTAL (test code = 2207) 0.4 MG/DL ALKALINE PHOSPHATASE (test code = 2204) 96 U/L AST (test code = 2218) 14 U/L ALT (test code = 2219) 17 U/L Jacobo Jalloh AustinLIPID [id number] 00:00:00* Test Item Value Reference Range Interpretation Comme nts CHOLESTEROL (test code = 2210) 154 MG/DL TRIGLYCERIDES (test code = 2232) 81 MG/DL HDL CHOLESTEROL (test code = 2220) 40 MG/DL CALC LDL CHOL (test code = 2237) 97 MG/DL RISK RATIO LDL/HDL (test cod e = 2238) 2.43 RATIO Jacobo WittHEMOGLOBIN [id number] 00:00:00* Test Item Value Reference Range Interpretation Comme margret HEMOGLOBIN A1c (test code = 20569) 5.9 % Jacobo WittHEMOGLOBIN [id number] 05:25:02* Test Item Value Reference Range Interpretation Comme [facility] HEMOGLOBIN A1c (test code = 75362) 8.4 % 4.2-5.6 H [employer] GUIDELINES FOR HGB A1C: PREDIABETES/INCREASED RISK . . . . . . . 5.7-6.4% DIAGNOSIS OF DIABETES . . . . . . . . . >=6.5% WITH CONFIRMATION OR APPROPRIATE SYMPTOMS NOTE: ASSAY MAY BE AFFECTED BY HEMOGLOBINOPATHIES (SICKLE CELL ANEMIA, S-C DISEASE, OTHERS) OR ARTIFICIALLY LOWERED BY DECREASED RED CELL SURVIVAL (HEMOLYTIC ANEMIAS, BLOOD LOSS, ETC.). CONSIDER ALTERNATE TESTING OR LABORATORY CONSULTATION. UNLESS OTHERWISE INDICATED, ALL TESTING PERFORMED AT [facility] [employer] [address] [place] [address] COLLECTION SUPPORT SPECIALIST: ZULEIMA HOLGUIN M.D. CLIA NUMBER [id number] [facility] [place] [place]. [id number] HEMOGLOBIN [id number] 00:00:00* Test Item Value Reference Range Interpretation Comme [facility] HEMOGLOBIN A1c (test code = 57811) 8.4 % Jacobo WittHEMOGLOBIN [id number] 00:00:00* Test Item Value Reference Range Interpretation Comme [facility] HEMOGLOBIN A1c (test code = 47326) 8.4 % Jacobo WittHEMOGLOBIN [id number] 00:00:00* Test Item Value Reference Range Interpretation Comme margret HEMOGLOBIN A1c (test code = 46095) 8.4 % Jacobo Jalloh AustinVITAMIN B 12 AND FOLIC [id number] 06:10:44* Test Item Value Reference Range Interpretation Comme [facility] VITAMIN B-12 (test code = 2840) 503 PG/ML 200-950 FOLIC ACID (test code = 2695) 8.2 UG/L SEE BELOW INTERPRETI VE RANGES DEFICIENCY . . . . . . . . . . . . . . . UG/L <4.0 POSSIBLE DEFICIENCY. . . . . . . . . . . UG/L 4.0-5.9 SUFFICIENT . . . . . . . . . . . . . . . UG/L >=6.0 ALBUMIN/CREATININE RATIO, URINE, [id number] 05:20:09* Test Item Value Reference Range Interpretation Comme nts CREATININE, URINE, CONC. (test code = 2072) 133.0 MG/DL NOT ESTAB ALBUMIN, URINE, RANDOM (test code = 62389) 3.5 MG/DL NOT ESTAB CALC ALBUMIN/CREAT, RND (test code = 93910) 26 MG/G <30 Note: Albumin/Creatinine ratio reference interval reflects ADA and NKF guidelines. TSH, THIRD [id number] 05:11:08* Test Item Value Reference Range Interpretation Comme nts TSH, THIRD GENERATION (test code = 2821) 5.360 UIU/ML 0.400-4.100 H [id number] 05:11:08* Test Item Value Reference Range Interpretation Comme nts FERRITIN (test code = 2075) 84 NG/ML 13-200 [id number] 05:09:49* Test Item Value Reference Range Interpretation Comme nts TRANSFERRIN (test code = 4936) 292 MG/DL 200-360 COMPREHENSIVE METABOLIC [id number] 04:54:54* Test Item Value Reference Range Interpretation Comme nts GLUCOSE (test code = 2217) 165 MG/DL 70-99 H BUN (test code = 2207) 11 MG/DL 6-20 CREATININE (test code = 221) 0.63 MG/DL 0.60-1.30 eGFR (2020 CKD-EPI) (test code = 37595) 115 ML/MIN/1.73 >60 CALC BUN/CREAT (test code = 2235) 17 RATIO 6-28 SODIUM (test code = 223) 141 MEQ/L 133-146 POTASSIUM (test code = 2227) 4.3 MEQ/L 3.5-5.4 CHLORIDE (test code = 2214) 106 MEQ/L 95-107 CARBON DIOXIDE (test code = 2205) 23 MEQ/L 19-31 CALCIUM (test code = 2208) 9.6 MG/DL 8.5-10.5 PROTEIN, TOTAL (test code = 2228) 7.3 G/DL 6.1-8.3 ALBUMIN (test code = 220) 4.1 G/DL 3.5-5.2 CALC GLOBULIN (test code = 2240) 3.2 G/DL 1.9-3.7 CALC A/G RATIO (test code = 2234) 1.3 RATIO 1.0-2.6 BILIRUBIN, TOTAL (test code = 2206) 0.5 MG/DL See_Comment [Automated me ssage] The system which generated this result transmitted reference range: <=1.2. The reference range was not used to interpret this result as normal/abnormal. ALKALINE PHOSPHATASE (test code = 2204) 105 U/L 40-112 AST (test code = 2218) 25 U/L 9-40 ALT (test code = 2219) 41 U/L 5-40 H LIPID [id number] 04:54:54* Test Item Value Reference Range Interpretation Comme nts CHOLESTEROL (test code = 2210) 207 MG/DL <200 H TRIGLYCERIDES (test code = 2232) 162 MG/DL <150 H HDL CHOLESTEROL (test code = 2220) 34 MG/DL >39 L CALC LDL CHOL (test code = 2237) 143 MG/DL <100 H NOTE: CALCULATED LDL IS BASED ON SHAMEKA-JACOBSON METHOD WHICHINCLUDES ADJUSTABLE TRIGLYCERIDE:VLDL CHOLESTEROL RATIO.THIS FACTOR VARIES BY MEASURED TRIGLYCERIDE AND NON-HDLCHOLESTEROL CONCENTRATIONS WITH INCREASED CALCULATED LDL SEENIN HIGHER TRIGLYCERIDE OR LOWER NON-HDL SPECIMENS. FOR MOREINFORMATION, SEE CLIENT ANNOUNCEMENT AT [email or web address] [email or web address] RATIO LDL/HDL (test code = 2238) 4.21 RATIO <3.22 H UNLESS OTHERW ISE INDICATED, ALL TESTING PERFORMED AT [facility] [address] [place] [address] COLLECTION SUPPORT SPECIALIST: ZULEIMA HOLGUIN M.D. CLIA NUMBER [id number] [facility] [place] [place]. [id number] IRON BINDING CAPACITY AND IRON AND % [id number] 04:54:54* Test Item Value Reference Range Interpretation Comme nts IRON, SERUM (test code = 222) 81 UG/DL 37-145 UNSATURATED IBC (test code = 26508) 257 UG/DL 112-347 CALC TOTAL IBC (test code = 2077) 338 UG/DL 250-450 CALC % IRON SAT (test code = 2079) 24 % 20-50 VITAMIN B 12 AND FOLIC [id number] 00:00:00* Test Item Value Reference Range Interpretation Comme nts VITAMIN B-12 (test code = 2840) 503 PG/ML FOLIC ACID (test code = 2695) 8.2 UG/L Jacobo WittCOMPREHENSIVE METABOLIC [id number] 00:00:00* Test Item Value Reference Range Interpretation Comme nts GLUCOSE (test code = 2217) 165 MG/DL BUN (test code = 2208) 11 MG/DL CREATININE (test code = 2214) 0.63 MG/DL eGFR (2020 CKD-EPI) (test code = 92717) 115 ML/MIN/1.73 CALC BUN/CREAT (test code = 2235) 17 RATIO SODIUM (test code = 2231) 141 MEQ/L POTASSIUM (test code = 2228) 4.3 MEQ/L CHLORIDE (test code = 2215) 106 MEQ/L CARBON DIOXIDE (test code = 2206) 23 MEQ/L CALCIUM (test code = 2209) 9.6 MG/DL PROTEIN, TOTAL (test code = 2229) 7.3 G/DL ALBUMIN (test code = 2201) 4.1 G/DL CALC GLOBULIN (test code = 2240) 3.2 G/DL CALC A/G RATIO (test code = 2234) 1.3 RATIO BILIRUBIN, TOTAL (test code = 2207) 0.5 MG/DL ALKALINE PHOSPHATASE (test code = 2204) 105 U/L AST (test code = 2218) 25 U/L ALT (test code = 2219) 41 U/L Jacobo WittALBUMIN/CREATININE RATIO, RANDOM [id number] 00:00:00* Test Item Value Reference Range Interpretation Comme nts CREATININE, URINE, CONC. (te st code = 207) 133.0 MG/DL ALBUMIN, URINE, RANDOM (test code = 80938) 3.5 MG/DL CALC ALBUMIN/CREAT, RND (valeria t code = 36379) 26 MG/G Jacobo WittTSH, THIRD [id number] 00:00:00* Test Item Value Reference Range Interpretation Comme margret TSH, THIRD GENERATION (test code = 2821) 5.360 UIU/ML Jacobo WittLIPID [id number] 00:00:00* Test Item Value Reference Range Interpretation Comme nts CHOLESTEROL (test code = 2210) 207 MG/DL TRIGLYCERIDES (test code = 2232) 162 MG/DL HDL CHOLESTEROL (test code = 2220) 34 MG/DL CALC LDL CHOL (test code = 2237) 143 MG/DL RISK RATIO LDL/HDL (test cod e = 2238) 4.21 RATIO Jacobo WittIRON BINDING CAPACITY AND IRON AND % [id number] 00:00:00* Test Item Value Reference Range Interpretation Comme nts IRON, SERUM (test code = 2221) 81 UG/DL UNSATURATED IBC (test code = ) 257 UG/DL CALC TOTAL IBC (test code = 7) 338 UG/DL CALC % IRON SAT (test code = 2078) 24 % Jacobo [id number] 00:00:00* Test Item Value Reference Range Interpretation Comme nts FERRITIN (test code = 2074) 84 NG/ML Jacobo [id number] 00:00:00* Test Item Value Reference Range Interpretation Comme nts TRANSFERRIN (test code = 4936) 292 MG/DL Jacobo WittVITAMIN B 12 AND FOLIC [id number] 00:00:00* Test Item Value Reference Range Interpretation Comme margret VITAMIN B-12 (test code = 2840) 503 PG/ML FOLIC ACID (test code = 2695) 8.2 UG/L Jacobo WittCOMPREHENSIVE METABOLIC [id number] 00:00:00* Test Item Value Reference Range Interpretation Comme margret GLUCOSE (test code = 2217) 165 MG/DL BUN (test code = 2208) 11 MG/DL CREATININE (test code = 2214) 0.63 MG/DL eGFR (2020 CKD-EPI) (test code = 37293) 115 ML/MIN/1.73 CALC BUN/CREAT (test code = 2235) 17 RATIO SODIUM (test code = 2231) 141 MEQ/L POTASSIUM (test code = 2228) 4.3 MEQ/L CHLORIDE (test code = 2215) 106 MEQ/L CARBON DIOXIDE (test code = 2206) 23 MEQ/L CALCIUM (test code = 2209) 9.6 MG/DL PROTEIN, TOTAL (test code = 2229) 7.3 G/DL ALBUMIN (test code = 2201) 4.1 G/DL CALC GLOBULIN (test code = 2240) 3.2 G/DL CALC A/G RATIO (test code = 2234) 1.3 RATIO BILIRUBIN, TOTAL (test code = 2207) 0.5 MG/DL ALKALINE PHOSPHATASE (test code = 2204) 105 U/L AST (test code = 2218) 25 U/L ALT (test code = 2219) 41 U/L Jacobo WittALBUMIN/CREATININE RATIO, RANDOM [id number] 00:00:00* Test Item Value Reference Range Interpretation Comme margret CREATININE, URINE, CONC. (te st code = 2072) 133.0 MG/DL ALBUMIN, URINE, RANDOM (test code = 82612) 3.5 MG/DL CALC ALBUMIN/CREAT, RND (valeria t code = 60400) 26 MG/G Jacobo WittTSH, THIRD [id number] 00:00:00* Test Item Value Reference Range Interpretation Comme margret TSH, THIRD GENERATION (test code = 2821) 5.360 UIU/ML Jacobo WittLIPID [id number] 00:00:00* Test Item Value Reference Range Interpretation Comme nts CHOLESTEROL (test code = 2210) 207 MG/DL TRIGLYCERIDES (test code = 2232) 162 MG/DL HDL CHOLESTEROL (test code = 2220) 34 MG/DL CALC LDL CHOL (test code = 2237) 143 MG/DL RISK RATIO LDL/HDL (test cod e = 2238) 4.21 RATIO Jacobo WittIRON BINDING CAPACITY AND IRON AND % [id number] 00:00:00* Test Item Value Reference Range Interpretation Comme nts IRON, SERUM (test code = 2221) 81 UG/DL UNSATURATED IBC (test code = ) 257 UG/DL CALC TOTAL IBC (test code = 2076) 338 UG/DL CALC % IRON SAT (test code = 2078) 24 % Jacobo [id number] 00:00:00* Test Item Value Reference Range Interpretation Comme margret FERRITIN (test code = 2074) 84 NG/ML Jacobo [id number] 00:00:00* Test Item Value Reference Range Interpretation Comme nts TRANSFERRIN (test code = 4936) 292 MG/DL Jacobo WittVITAMIN B 12 AND FOLIC [id number] 00:00:00* Test Item Value Reference Range Interpretation Comme nts VITAMIN B-12 (test code = 2840) 503 PG/ML FOLIC ACID (test code = 2695) 8.2 UG/L Jacobo WittCOMPREHENSIVE METABOLIC [id number] 00:00:00* Test Item Value Reference Range Interpretation Comme nts GLUCOSE (test code = 2217) 165 MG/DL BUN (test code = 2208) 11 MG/DL CREATININE (test code = 2214) 0.63 MG/DL eGFR (2020 CKD-EPI) (test code = 90605) 115 ML/MIN/1.73 CALC BUN/CREAT (test code = 2235) 17 RATIO SODIUM (test code = 2231) 141 MEQ/L POTASSIUM (test code = 2228) 4.3 MEQ/L CHLORIDE (test code = 2215) 106 MEQ/L CARBON DIOXIDE (test code = 2206) 23 MEQ/L CALCIUM (test code = 2209) 9.6 MG/DL PROTEIN, TOTAL (test code = 2229) 7.3 G/DL ALBUMIN (test code = 2201) 4.1 G/DL CALC GLOBULIN (test code = 2240) 3.2 G/DL CALC A/G RATIO (test code = 2234) 1.3 RATIO BILIRUBIN, TOTAL (test code = 2207) 0.5 MG/DL ALKALINE PHOSPHATASE (test code = 2204) 105 U/L AST (test code = 2218) 25 U/L ALT (test code = 2219) 41 U/L Jacobo WittALBUMIN/CREATININE RATIO, RANDOM [id number] 00:00:00* Test Item Value Reference Range Interpretation Comme nts CREATININE, URINE, CONC. (te st code = 207) 133.0 MG/DL ALBUMIN, URINE, RANDOM (test code = 24584) 3.5 MG/DL CALC ALBUMIN/CREAT, RND (valeria t code = 57015) 26 MG/G Jacobo WittTSH, THIRD [id number] 00:00:00* Test Item Value Reference Range Interpretation Comme margret TSH, THIRD GENERATION (test code = 2821) 5.360 UIU/ML Jacobo WittLIPID [id number] 00:00:00* Test Item Value Reference Range Interpretation Comme nts CHOLESTEROL (test code = 2210) 207 MG/DL TRIGLYCERIDES (test code = 2232) 162 MG/DL HDL CHOLESTEROL (test code = 2220) 34 MG/DL CALC LDL CHOL (test code = 2237) 143 MG/DL RISK RATIO LDL/HDL (test cod e = 2238) 4.21 RATIO Jacobo WittIRON BINDING CAPACITY AND IRON AND % [id number] 00:00:00* Test Item Value Reference Range Interpretation Comme nts IRON, SERUM (test code = 2221) 81 UG/DL UNSATURATED IBC (test code = ) 257 UG/DL CALC TOTAL IBC (test code = 7) 338 UG/DL CALC % IRON SAT (test code = 2078) 24 % Jacobo [id number] 00:00:00* Test Item Value Reference Range Interpretation Comme nts FERRITIN (test code = 2074) 84 NG/ML Jacobo [id number] 00:00:00* Test Item Value Reference Range Interpretation Comme nts TRANSFERRIN (test code = 4936) 292 MG/DL Jacobo HoffmannRS-CoV-2 (COVID-19), RT-PCR/[id number] 08:48:24* Test Item Value Reference Range Interpretation Comments SARS-CoV-2 INTERPRETATION (test code = 05115) NEGATIVE SEE NOTE SARS-CoV-2 R NA NOT DETECTEDNegative results do not preclude SARS-CoV-2 infection and should notbe used as the sole basis for patient management decisions. Negativeresults must be combined with clinical observations, patient history,and epidemiological information. Optimum specimen types and timingfor peak viral levels during infections caused by SARS-CoV-2 have notbeen determined. Collection of multiple specimens or types ofspecimens may be necessary to detect virus. Improper specimencollection and handling, sequence variability under primers/probes,or organism present below the limit of detection may lead to falsenegative results. Positive and negative predictive values oftesting are highly dependent on prevalence. False negative testresults are more likely when prevalence is high. EFFECTIVE 12/20/2021, SPUTUM SPECIMENS CAN NO LONGER BE TESTED WITHTHIS ORDER CODE. FOR SALIVA, ORAL FLUID TESTING AND SPECIMENREQUIREMENTS, PLEASE REFER TO ORDER CODE 3509. SOURCE (test code = 37800) NOT SPECIFIED Note: Methodolog y is [facility] Real-Time RT-PCR. The expected result or reference range is NEGATIVE (Not Detected). For more information regarding COVID-19 testing to include clinicalinformation, methodology detail, intended use, FDA authorization andrecommended fact sheets for patients or healthcare providers, see [facility] Announcement: SARS-CoV-2 (COVID-19) by NAAT at URL below (note,fact sheets are provided by method given in report:[email or web address] Alternatively, see downloadable PDF fact sheet at:[email or web address] UNLESS OTHERWISE INDICATED, ALL TESTING PERFORMED [facility] [address] [place] [address] COLLECTION SUPPORT SPECIALIST: LETTY MILLER M.D. CLIA NUMBER [id number] [place]. [id number] SARS-CoV-2 (COVID-19) by RT-PCR (HIGH RISK)2021-12-10 00:00:00* Test Item Value Reference Range Interpretation Comme nts SARS-CoV-2 INTERPRETATION (t est code = 55298) NEGATIVE SOURCE (test code = 08896) NOT SPECIFIED Jacobo Jalloh [id number] (COVID-19) by RT-PCR (HIGH RISK)2021-12-10 00:00:00* Test Item Value Reference Range Interpretation Comme nts SARS-CoV-2 INTERPRETATION (t est code = 48881) NEGATIVE SOURCE (test code = 37948) NOT SPECIFIED Jacobo Jalloh [id number] (COVID-19) by RT-PCR (HIGH RISK)2021-12-10 00:00:00* Test Item Value Reference Range Interpretation Comme nts SARS-CoV-2 INTERPRETATION (t est code = 87134) NEGATIVE SOURCE (test code = 80942) NOT SPECIFIED Jacobo Jalloh PvnbjwATEP-[id number]-2 (COVID-19) by RT-PCR (HIGH RISK)2021-12-10 00:00:00* Test Item Value Reference Range Interpretation Comme nts SARS-CoV-2 INTERPRETATION (t est code = 73294) NEGATIVE SOURCE (test code = 57501) NOT SPECIFIED SARS-CoV-2 (COVID-19) by RT-PCR (HIGH RISK)2021-12-10 00:00:00* Test Item Value Reference Range Interpretation Comme nts SARS-CoV-2 INTERPRETATION (t est code = 65942) NEGATIVE SOURCE (test code = 99407) NOT SPECIFIED SARS-CoV-2 (COVID-19) by RT-PCR (HIGH RISK)2021-12-10 00:00:00* Test Item Value Reference Range Interpretation Comme nts SARS-CoV-2 INTERPRETATION (t est code = 71501) NEGATIVE SOURCE (test code = 70318) NOT SPECIFIED SARS-CoV-2 (COVID-19) by RT-PCR (HIGH RISK)2021-12-10 00:00:00* Test Item Value Reference Range Interpretation Comme nts SARS-CoV-2 INTERPRETATION (t est code = 93135) NEGATIVE SOURCE (test code = 76377) NOT SPECIFIED SARS-CoV-2 (COVID-19) by RT-PCR (HIGH RISK)2021-12-10 00:00:00* Test Item Value Reference Range Interpretation Comme nts SARS-CoV-2 INTERPRETATION (t est code = 17130) NEGATIVE SOURCE (test code = 58585) NOT SPECIFIED SARS-CoV-2 (COVID-19) by RT-PCR (HIGH RISK)2021-12-10 00:00:00* Test Item Value Reference Range Interpretation Comme nts SARS-CoV-2 INTERPRETATION (t est code = 49336) NEGATIVE SOURCE (test code = 87596) NOT SPECIFIED TSH + FREE T4 [id number] 04:46:08* Test Item Value Reference Range Interpretation Comme nts TSH, THIRD GENERATION (test code = 2821) 3.090 UIU/ML 0.400-4.100 FREE T4 (THYROXINE) (test code = 2823) 0.88 NG/DL 0.80-1.90 UNLESS OTHERW ISE INDICATED, ALL TESTING PERFORMED [facility] [address] [place] [address] COLLECTION SUPPORT SPECIALIST: LETTY MILLER M.D. [place] NUMBER [id number] [facility] [place]. [id number] TSH + FREE T4 [id number] 00:00:00* Test Item Value Reference Range Interpretation Comme nts TSH, THIRD GENERATION (test code = 2821) 3.090 UIU/ML FREE T4 (THYROXINE) (test co de = 2823) 0.88 NG/DL Jacobo Jalloh AustinTSH + FREE T4 [id number] 00:00:00* Test Item Value Reference Range Interpretation Comme nts TSH, THIRD GENERATION (test code = 2821) 3.090 UIU/ML FREE T4 (THYROXINE) (test co de = 2823) 0.88 NG/DL Jacobo Jalloh AustinTSH + FREE T4 [id number] 00:00:00* Test Item Value Reference Range Interpretation Comme nts TSH, THIRD GENERATION (test code = 2821) 3.090 UIU/ML FREE T4 (THYROXINE) (test co de = 2823) 0.88 NG/DL Jacobo Jalloh AustinTSH + FREE T4 [id number] 00:00:00* Test Item Value Reference Range Interpretation Comme nts TSH, THIRD GENERATION (test code = 2821) 3.090 UIU/ML FREE T4 (THYROXINE) (test co de = 2823) 0.88 NG/DL TSH + FREE T4 [id number] 00:00:00* Test Item Value Reference Range Interpretation Comme nts TSH, THIRD GENERATION (test code = 2821) 3.090 UIU/ML FREE T4 (THYROXINE) (test co de = 2823) 0.88 NG/DL TSH + FREE T4 [id number] 00:00:00* Test Item Value Reference Range Interpretation Comme nts TSH, THIRD GENERATION (test code = 2821) 3.090 UIU/ML FREE T4 (THYROXINE) (test co de = 2823) 0.88 NG/DL TSH + FREE T4 [id number] 00:00:00* Test Item Value Reference Range Interpretation Comme nts TSH, THIRD GENERATION (test code = 2821) 3.090 UIU/ML FREE T4 (THYROXINE) (test co de = 2823) 0.88 NG/DL TSH + FREE T4 [id number] 00:00:00* Test Item Value Reference Range Interpretation Comme nts TSH, THIRD GENERATION (test code = 2821) 3.090 UIU/ML FREE T4 (THYROXINE) (test co de = 2823) 0.88 NG/DL TSH + FREE T4 [id number] 00:00:00* Test Item Value Reference Range Interpretation Comme nts TSH, THIRD GENERATION (test code = 2821) 3.090 UIU/ML FREE T4 (THYROXINE) (test co de = 2823) 0.88 NG/DL CBC W/AUTO [id number] 00:00:00* Test Item Value Reference Range Interpretation Comme nts WBC (test code = 1001) 7.2 K/UL [...] = 1013) 0.4 % IMMATURE GRANULOCYTES (test code = 1036) 0.7 % NUCLEATED RBCS (test code = 1065) 0.0 /100WBC'S PLATELET COUNT (test code = 1015) 125 K/UL ABSOLUTE NEUTROPHILS (test c ode = 1066) 5.72 K/UL ABSOLUTE LYMPHOCYTES (test c ode = 1067) 0.88 K/UL ABSOLUTE MONOCYTES (test cod e = 1068) 0.50 K/UL ABSOLUTE EOSINOPHILS (test c ode = 1040) 0.03 K/UL ABSOLUTE BASOPHILS (test cod e = 1069) 0.03 K/UL ABS IMMATURE GRANULOCYTES (t est code = 1020) 0.05 K/UL ABS NUCLEATED RBCS (test cod e = 81502) 0.00 K/UL Jacobo WittHEMOGLOBIN [id number] 00:00:00* Test Item Value Reference Range Interpretation Comme nts HEMOGLOBIN A1c (test code = 48415) 8.4 % Jacobo WittCOMPREHENSIVE METABOLIC [id number] 00:00:00* Test Item Value Reference Range Interpretation Comme nts GLUCOSE (test code = 2217) 128 MG/DL BUN (test code = 2208) 15 MG/DL CREATININE (test code = 2214) 0.64 MG/DL eGFR AMER. (test cod e = 41190) 131 ML/MIN/1.73 eGFR NON- AMER. (test code = 99692) 113 ML/MIN/1.73 CALC BUN/CREAT (test code = 2235) 23 RATIO SODIUM (test code = 2231) 140 MEQ/L POTASSIUM (test code = 2228) 4.2 MEQ/L CHLORIDE (test code = 2215) 105 MEQ/L CARBON DIOXIDE (test code = 2206) 22 MEQ/L CALCIUM (test code = 2209) 8.8 MG/DL PROTEIN, TOTAL (test code = 2229) 5.9 G/DL ALBUMIN (test code = 2201) 3.8 G/DL CALC GLOBULIN (test code = 2240) 2.1 G/DL CALC A/G RATIO (test code = 2234) 1.8 RATIO BILIRUBIN, TOTAL (test code = 2207) 0.6 MG/DL ALKALINE PHOSPHATASE (test code = 2204) 68 U/L AST (test code = 2218) 21 U/L ALT (test code = 2219) 37 U/L Jacobo WittCBC W/AUTO [id number] 00:00:00* Test Item Value Reference Range Interpretation Comme nts WBC (test code = 1001) 7.2 K/UL [...] = 1013) 0.4 % IMMATURE GRANULOCYTES (test code = 1036) 0.7 % NUCLEATED RBCS (test code = 1065) 0.0 /100WBC'S PLATELET COUNT (test code = 1015) 125 K/UL ABSOLUTE NEUTROPHILS (test c ode = 1066) 5.72 K/UL ABSOLUTE LYMPHOCYTES (test c ode = 1067) 0.88 K/UL ABSOLUTE MONOCYTES (test cod e = 1068) 0.50 K/UL ABSOLUTE EOSINOPHILS (test c ode = 1040) 0.03 K/UL ABSOLUTE BASOPHILS (test cod e = 1069) 0.03 K/UL ABS IMMATURE GRANULOCYTES (t est code = 1020) 0.05 K/UL ABS NUCLEATED RBCS (test cod e = 68955) 0.00 K/UL Jacobo WittHEMOGLOBIN [id number] 00:00:00* Test Item Value Reference Range Interpretation Comme nts HEMOGLOBIN A1c (test code = 46510) 8.4 % Jacobo WittCOMPREHENSIVE METABOLIC [id number] 00:00:00* Test Item Value Reference Range Interpretation Comme nts GLUCOSE (test code = 2217) 128 MG/DL BUN (test code = 2208) 15 MG/DL CREATININE (test code = 2214) 0.64 MG/DL eGFR AMER. (test cod e = 63496) 131 ML/MIN/1.73 eGFR NON- AMER. (test code = 17204) 113 ML/MIN/1.73 CALC BUN/CREAT (test code = 2235) 23 RATIO SODIUM (test code = 2231) 140 MEQ/L POTASSIUM (test code = 2228) 4.2 MEQ/L CHLORIDE (test code = 2215) 105 MEQ/L CARBON DIOXIDE (test code = 2206) 22 MEQ/L CALCIUM (test code = 2209) 8.8 MG/DL PROTEIN, TOTAL (test code = 2229) 5.9 G/DL ALBUMIN (test code = 2201) 3.8 G/DL CALC GLOBULIN (test code = 2240) 2.1 G/DL CALC A/G RATIO (test code = 2234) 1.8 RATIO BILIRUBIN, TOTAL (test code = 2207) 0.6 MG/DL ALKALINE PHOSPHATASE (test code = 2204) 68 U/L AST (test code = 2218) 21 U/L ALT (test code = 2219) 37 U/L Jacobo Jalloh [facility] W/AUTO [id number] 00:00:00* Test Item Value Reference Range Interpretation Comme nts WBC (test code = 1001) 7.2 K/UL [...] = 1013) 0.4 % IMMATURE GRANULOCYTES (test code = 1036) 0.7 % NUCLEATED RBCS (test code = 1065) 0.0 /100WBC'S PLATELET COUNT (test code = 1015) 125 K/UL ABSOLUTE NEUTROPHILS (test c ode = 1066) 5.72 K/UL ABSOLUTE LYMPHOCYTES (test c ode = 1067) 0.88 K/UL ABSOLUTE MONOCYTES (test cod e = 1068) 0.50 K/UL ABSOLUTE EOSINOPHILS (test c ode = 1040) 0.03 K/UL ABSOLUTE BASOPHILS (test cod e = 1069) 0.03 K/UL ABS IMMATURE GRANULOCYTES (t est code = 1020) 0.05 K/UL ABS NUCLEATED RBCS (test cod e = 75678) 0.00 K/UL [facility] [id number] 00:00:00* Test Item Value Reference Range Interpretation Comme nts WBC (test code = 1001) 7.2 K/UL [...] = 1013) 0.4 % IMMATURE GRANULOCYTES (test code = 1036) 0.7 % NUCLEATED RBCS (test code = 1065) 0.0 /100WBC'S PLATELET COUNT (test code = 1015) 125 K/UL ABSOLUTE NEUTROPHILS (test c ode = 1066) 5.72 K/UL ABSOLUTE LYMPHOCYTES (test c ode = 1067) 0.88 K/UL ABSOLUTE MONOCYTES (test cod e = 1068) 0.50 K/UL ABSOLUTE EOSINOPHILS (test c ode = 1040) 0.03 K/UL ABSOLUTE BASOPHILS (test cod e = 1069) 0.03 K/UL ABS IMMATURE GRANULOCYTES (t est code = 1020) 0.05 K/UL ABS NUCLEATED RBCS (test cod e = 43851) 0.00 K/UL COMPREHENSIVE METABOLIC [id number] 00:00:00* Test Item Value Reference Range Interpretation Comme nts GLUCOSE (test code = 2217) 128 MG/DL BUN (test code = 2208) 15 MG/DL CREATININE (test code = 2214) 0.64 MG/DL eGFR AMER. (test cod e = 34519) 131 ML/MIN/1.73 eGFR NON- AMER. (test code = 51425) 113 ML/MIN/1.73 CALC BUN/CREAT (test code = 2235) 23 RATIO SODIUM (test code = 2231) 140 MEQ/L POTASSIUM (test code = 2228) 4.2 MEQ/L CHLORIDE (test code = 2215) 105 MEQ/L CARBON DIOXIDE (test code = 2206) 22 MEQ/L CALCIUM (test code = 2209) 8.8 MG/DL PROTEIN, TOTAL (test code = 2229) 5.9 G/DL ALBUMIN (test code = 2201) 3.8 G/DL CALC GLOBULIN (test code = 2240) 2.1 G/DL CALC A/G RATIO (test code = 2234) 1.8 RATIO BILIRUBIN, TOTAL (test code = 2207) 0.6 MG/DL ALKALINE PHOSPHATASE (test code = 2204) 68 U/L AST (test code = 2218) 21 U/L ALT (test code = 2219) 37 U/L HEMOGLOBIN [id number] 00:00:00* Test Item Value Reference Range Interpretation Comme nts HEMOGLOBIN A1c (test code = 23197) 8.4 % COMPREHENSIVE METABOLIC [id number] 00:00:00* Test Item Value Reference Range Interpretation Comme nts GLUCOSE (test code = 2217) 128 MG/DL BUN (test code = 2208) 15 MG/DL CREATININE (test code = 2214) 0.64 MG/DL eGFR AMER. (test cod e = 00176) 131 ML/MIN/1.73 eGFR NON- AMER. (test code = 44744) 113 ML/MIN/1.73 CALC BUN/CREAT (test code = 2235) 23 RATIO SODIUM (test code = 2231) 140 MEQ/L POTASSIUM (test code = 2228) 4.2 MEQ/L CHLORIDE (test code = 2215) 105 MEQ/L CARBON DIOXIDE (test code = 2206) 22 MEQ/L CALCIUM (test code = 2209) 8.8 MG/DL PROTEIN, TOTAL (test code = 2229) 5.9 G/DL ALBUMIN (test code = 2201) 3.8 G/DL CALC GLOBULIN (test code = 2240) 2.1 G/DL CALC A/G RATIO (test code = 2234) 1.8 RATIO BILIRUBIN, TOTAL (test code = 2207) 0.6 MG/DL ALKALINE PHOSPHATASE (test code = 2204) 68 U/L AST (test code = 2218) 21 U/L ALT (test code = 2219) 37 U/L HEMOGLOBIN [id number] 00:00:00* Test Item Value Reference Range Interpretation Comme nts HEMOGLOBIN A1c (test code = 72516) 8.4 % Jacobo WittCBC W/AUTO [id number] 00:00:00* Test Item Value Reference Range Interpretation Comme nts WBC (test code = 1001) 7.2 K/UL [...] = 1013) 0.4 % IMMATURE GRANULOCYTES (test code = 1036) 0.7 % NUCLEATED RBCS (test code = 1065) 0.0 /100WBC'S PLATELET COUNT (test code = 1015) 125 K/UL ABSOLUTE NEUTROPHILS (test c ode = 1066) 5.72 K/UL ABSOLUTE LYMPHOCYTES (test c ode = 1067) 0.88 K/UL ABSOLUTE MONOCYTES (test cod e = 1068) 0.50 K/UL ABSOLUTE EOSINOPHILS (test c ode = 1040) 0.03 K/UL ABSOLUTE BASOPHILS (test cod e = 1069) 0.03 K/UL ABS IMMATURE GRANULOCYTES (t est code = 1020) 0.05 K/UL ABS NUCLEATED RBCS (test cod e = 44581) 0.00 K/UL HEMOGLOBIN [id number] 00:00:00* Test Item Value Reference Range Interpretation Comme nts HEMOGLOBIN A1c (test code = 80568) 8.4 % COMPREHENSIVE METABOLIC [id number] 00:00:00* Test Item Value Reference Range Interpretation Comme nts GLUCOSE (test code = 2217) 128 MG/DL BUN (test code = 2208) 15 MG/DL CREATININE (test code = 2214) 0.64 MG/DL eGFR AMER. (test cod e = 98775) 131 ML/MIN/1.73 eGFR NON- AMER. (test code = 74914) 113 ML/MIN/1.73 CALC BUN/CREAT (test code = 2235) 23 RATIO SODIUM (test code = 2231) 140 MEQ/L POTASSIUM (test code = 2228) 4.2 MEQ/L CHLORIDE (test code = 2215) 105 MEQ/L CARBON DIOXIDE (test code = 2206) 22 MEQ/L CALCIUM (test code = 2209) 8.8 MG/DL PROTEIN, TOTAL (test code = 2229) 5.9 G/DL ALBUMIN (test code = 2201) 3.8 G/DL CALC GLOBULIN (test code = 2240) 2.1 G/DL CALC A/G RATIO (test code = 2234) 1.8 RATIO BILIRUBIN, TOTAL (test code = 2207) 0.6 MG/DL ALKALINE PHOSPHATASE (test code = 2204) 68 U/L AST (test code = 2218) 21 U/L ALT (test code = 2219) 37 U/L CBC W/AUTO [id number] 00:00:00* Test Item Value Reference Range Interpretation Comme nts WBC (test code = 1001) 7.2 K/UL [...] = 1013) 0.4 % IMMATURE GRANULOCYTES (test code = 1036) 0.7 % NUCLEATED RBCS (test code = 1065) 0.0 /100WBC'S PLATELET COUNT (test code = 1015) 125 K/UL ABSOLUTE NEUTROPHILS (test c ode = 1066) 5.72 K/UL ABSOLUTE LYMPHOCYTES (test c ode = 1067) 0.88 K/UL ABSOLUTE MONOCYTES (test cod e = 1068) 0.50 K/UL ABSOLUTE EOSINOPHILS (test c ode = 1040) 0.03 K/UL ABSOLUTE BASOPHILS (test cod e = 1069) 0.03 K/UL ABS IMMATURE GRANULOCYTES (t est code = 1020) 0.05 K/UL ABS NUCLEATED RBCS (test cod e = 69590) 0.00 K/UL COMPREHENSIVE METABOLIC [id number] 00:00:00* Test Item Value Reference Range Interpretation Comme nts GLUCOSE (test code = 2217) 128 MG/DL BUN (test code = 2208) 15 MG/DL CREATININE (test code = 2214) 0.64 MG/DL eGFR AMER. (test cod e = 18474) 131 ML/MIN/1.73 eGFR NON- AMER. (test code = 89880) 113 ML/MIN/1.73 CALC BUN/CREAT (test code = 2235) 23 RATIO SODIUM (test code = 2231) 140 MEQ/L POTASSIUM (test code = 2228) 4.2 MEQ/L CHLORIDE (test code = 2215) 105 MEQ/L CARBON DIOXIDE (test code = 2206) 22 MEQ/L CALCIUM (test code = 2209) 8.8 MG/DL PROTEIN, TOTAL (test code = 2229) 5.9 G/DL ALBUMIN (test code = 2201) 3.8 G/DL CALC GLOBULIN (test code = 2240) 2.1 G/DL CALC A/G RATIO (test code = 2234) 1.8 RATIO BILIRUBIN, TOTAL (test code = 2207) 0.6 MG/DL ALKALINE PHOSPHATASE (test code = 2204) 68 U/L AST (test code = 2218) 21 U/L ALT (test code = 2219) 37 U/L Jacobo Jalloh AustinHEMOGLOBIN [id number] 00:00:00* Test Item Value Reference Range Interpretation Comme nts HEMOGLOBIN A1c (test code = 98583) 8.4 % COMPREHENSIVE METABOLIC [id number] 00:00:00* Test Item Value Reference Range Interpretation Comme nts GLUCOSE (test code = 2217) 128 MG/DL BUN (test code = 2208) 15 MG/DL CREATININE (test code = 2214) 0.64 MG/DL eGFR AMER. (test cod e = 58513) 131 ML/MIN/1.73 eGFR NON- AMER. (test code = 35586) 113 ML/MIN/1.73 CALC BUN/CREAT (test code = 2235) 23 RATIO SODIUM (test code = 2231) 140 MEQ/L POTASSIUM (test code = 2228) 4.2 MEQ/L CHLORIDE (test code = 2215) 105 MEQ/L CARBON DIOXIDE (test code = 2206) 22 MEQ/L CALCIUM (test code = 2209) 8.8 MG/DL PROTEIN, TOTAL (test code = 2229) 5.9 G/DL ALBUMIN (test code = 2201) 3.8 G/DL CALC GLOBULIN (test code = 2240) 2.1 G/DL CALC A/G RATIO (test code = 2234) 1.8 RATIO BILIRUBIN, TOTAL (test code = 2207) 0.6 MG/DL ALKALINE PHOSPHATASE (test code = 2204) 68 U/L AST (test code = 2218) 21 U/L ALT (test code = 2219) 37 U/L CBC W/AUTO [id number] 00:00:00* Test Item Value Reference Range Interpretation Comme nts WBC (test code = 1001) 7.2 K/UL [...] = 1013) 0.4 % IMMATURE GRANULOCYTES (test code = 1036) 0.7 % NUCLEATED RBCS (test code = 1065) 0.0 /100WBC'S PLATELET COUNT (test code = 1015) 125 K/UL ABSOLUTE NEUTROPHILS (test c ode = 1066) 5.72 K/UL ABSOLUTE LYMPHOCYTES (test c ode = 1067) 0.88 K/UL ABSOLUTE MONOCYTES (test cod e = 1068) 0.50 K/UL ABSOLUTE EOSINOPHILS (test c ode = 1040) 0.03 K/UL ABSOLUTE BASOPHILS (test cod e = 1069) 0.03 K/UL ABS IMMATURE GRANULOCYTES (t est code = 1020) 0.05 K/UL ABS NUCLEATED RBCS (test cod e = 73177) 0.00 K/UL HEMOGLOBIN [id number] 00:00:00* Test Item Value Reference Range Interpretation Comme nts HEMOGLOBIN A1c (test code = 86733) 8.4 % COMPREHENSIVE METABOLIC [id number] 00:00:00* Test Item Value Reference Range Interpretation Comme nts GLUCOSE (test code = 2217) 128 MG/DL BUN (test code = 2208) 15 MG/DL CREATININE (test code = 2214) 0.64 MG/DL eGFR AMER. (test cod e = 63381) 131 ML/MIN/1.73 eGFR NON- AMER. (test code = 70900) 113 ML/MIN/1.73 CALC BUN/CREAT (test code = 2235) 23 RATIO SODIUM (test code = 2231) 140 MEQ/L POTASSIUM (test code = 2228) 4.2 MEQ/L CHLORIDE (test code = 2215) 105 MEQ/L CARBON DIOXIDE (test code = 2206) 22 MEQ/L CALCIUM (test code = 2209) 8.8 MG/DL PROTEIN, TOTAL (test code = 2229) 5.9 G/DL ALBUMIN (test code = 2201) 3.8 G/DL CALC GLOBULIN (test code = 2240) 2.1 G/DL CALC A/G RATIO (test code = 2234) 1.8 RATIO BILIRUBIN, TOTAL (test code = 2207) 0.6 MG/DL ALKALINE PHOSPHATASE (test code = 2204) 68 U/L AST (test code = 2218) 21 U/L ALT (test code = 2219) 37 U/L CBC W/AUTO [id number] 00:00:00* Test Item Value Reference Range Interpretation Comme nts WBC (test code = 1001) 7.2 K/UL [...] = 1013) 0.4 % IMMATURE GRANULOCYTES (test code = 1036) 0.7 % NUCLEATED RBCS (test code = 1065) 0.0 /100WBC'S PLATELET COUNT (test code = 1015) 125 K/UL ABSOLUTE NEUTROPHILS (test c ode = 1066) 5.72 K/UL ABSOLUTE LYMPHOCYTES (test c ode = 1067) 0.88 K/UL ABSOLUTE MONOCYTES (test cod e = 1068) 0.50 K/UL ABSOLUTE EOSINOPHILS (test c ode = 1040) 0.03 K/UL ABSOLUTE BASOPHILS (test cod e = 1069) 0.03 K/UL ABS IMMATURE GRANULOCYTES (t est code = 1020) 0.05 K/UL ABS NUCLEATED RBCS (test cod e = 02260) 0.00 K/UL CBC W/AUTO [id number] 00:00:00* Test Item Value Reference Range Interpretation Comme nts WBC (test code = 1001) 7.2 K/UL [...] = 1013) 0.4 % IMMATURE GRANULOCYTES (test code = 1036) 0.7 % NUCLEATED RBCS (test code = 1065) 0.0 /100WBC'S PLATELET COUNT (test code = 1015) 125 K/UL ABSOLUTE NEUTROPHILS (test c ode = 1066) 5.72 K/UL ABSOLUTE LYMPHOCYTES (test c ode = 1067) 0.88 K/UL ABSOLUTE MONOCYTES (test cod e = 1068) 0.50 K/UL ABSOLUTE EOSINOPHILS (test c ode = 1040) 0.03 K/UL ABSOLUTE BASOPHILS (test cod e = 1069) 0.03 K/UL ABS IMMATURE GRANULOCYTES (t est code = 1020) 0.05 K/UL ABS NUCLEATED RBCS (test cod e = 60023) 0.00 K/UL HEMOGLOBIN [id number] 00:00:00* Test Item Value Reference Range Interpretation Comme nts HEMOGLOBIN A1c (test code = 88917) 8.4 % COMPREHENSIVE METABOLIC [id number] 00:00:00* Test Item Value Reference Range Interpretation Comme nts GLUCOSE (test code = 2217) 128 MG/DL BUN (test code = 2208) 15 MG/DL CREATININE (test code = 2214) 0.64 MG/DL eGFR AMER. (test cod e = 88496) 131 ML/MIN/1.73 eGFR NON- AMER. (test code = 13858) 113 ML/MIN/1.73 CALC BUN/CREAT (test code = 2235) 23 RATIO SODIUM (test code = 2231) 140 MEQ/L POTASSIUM (test code = 2228) 4.2 MEQ/L CHLORIDE (test code = 2215) 105 MEQ/L CARBON DIOXIDE (test code = 2206) 22 MEQ/L CALCIUM (test code = 2209) 8.8 MG/DL PROTEIN, TOTAL (test code = 2229) 5.9 G/DL ALBUMIN (test code = 2201) 3.8 G/DL CALC GLOBULIN (test code = 2240) 2.1 G/DL CALC A/G RATIO (test code = 2234) 1.8 RATIO BILIRUBIN, TOTAL (test code = 2207) 0.6 MG/DL ALKALINE PHOSPHATASE (test code = 2204) 68 U/L AST (test code = 2218) 21 U/L ALT (test code = 2219) 37 U/L HEMOGLOBIN [id number] 00:00:00* Test Item Value Reference Range Interpretation Comme nts HEMOGLOBIN A1c (test code = 17287) 8.4 % PAP TEST, THINPREP, [id number] 00:00:00* Test Item Value Reference Range Interpretation Comme nts SOURCE: (test code = 8001) Cervical/Endocervical SLIDES: (test code = 8011) 1 LMP: (test code = 8021) 09/25/2020 SPECIMEN ADEQUACY: (test code = 93994) (NOTE) INTERPRETATION: (test code = 31793) NILM/NO EPITH. ABNORMALITY;SEE BELOW PELT GRADER: (test code = 8101) RAMY Turcios (ASCP) LOCATION: (test code = 33054) (NOTE) CPT: (test code = 8140) (NOTE) Jacobo Jalloh [facility] HIGH RISK WITH GENOTYPE, [id number] 00:00:00* Test Item Value Reference Range Interpretation Comme nts HPV HIGH RISK INTERP (test c ode = 22725) NEGATIVE HPV 16 (test code = 18468) NEGATIVE HPV 18 (test code = 18423) NEGATIVE HPV, HR, OTHER GENOTYPES (te st code = 45554) NEGATIVE Jacobo Jalloh AustinPAP TEST, THINPREP, [id number] 00:00:00* Test Item Value Reference Range Interpretation Comme nts SOURCE: (test code = 8001) Cervical/Endocervical SLIDES: (test code = 8011) 1 LMP: (test code = 8021) 09/25/2020 SPECIMEN ADEQUACY: (test code = 93659) (NOTE) INTERPRETATION: (test code = 65414) NILM/NO EPITH. ABNORMALITY;SEE BELOW PELT GRADER: (test code = 8101) RAMY Turcios (ASCP) LOCATION: (test code = 10596) (NOTE) CPT: (test code = 8140) (NOTE) Jacobo F AustinHPV HIGH RISK WITH GENOTYPE, [id number] 00:00:00* Test Item Value Reference Range Interpretation Comme nts HPV HIGH RISK INTERP (test c ode = 35664) NEGATIVE HPV 16 (test code = 99751) NEGATIVE HPV 18 (test code = 83874) NEGATIVE HPV, HR, OTHER GENOTYPES (te st code = 75439) NEGATIVE Jacobo F AustinPAP TEST, THINPREP, [id number] 00:00:00* Test Item Value Reference Range Interpretation Comme nts SOURCE: (test code = 8001) Cervical/Endocervical SLIDES: (test code = 8011) 1 LMP: (test code = 8021) 09/25/2020 SPECIMEN ADEQUACY: (test code = 65860) (NOTE) INTERPRETATION: (test code = 57911) NILM/NO EPITH. ABNORMALITY;SEE BELOW PELT GRADER: (test code = 8101) RAMY Turcios (ASCP) LOCATION: (test code = 11388) (NOTE) CPT: (test code = 8140) (NOTE) Jacobo Jalloh [facility] HIGH RISK WITH GENOTYPE, [id number] 00:00:00* Test Item Value Reference Range Interpretation Comme nts HPV HIGH RISK INTERP (test c ode = 23403) NEGATIVE HPV 16 (test code = 33419) NEGATIVE HPV 18 (test code = 54046) NEGATIVE HPV, HR, OTHER GENOTYPES (te st code = 59437) NEGATIVE PAP TEST, THINPREP, [id number] 00:00:00* Test Item Value Reference Range Interpretation Comme nts SOURCE: (test code = 8001) Cervical/Endocervical SLIDES: (test code = 8011) 1 LMP: (test code = 8021) 09/25/2020 SPECIMEN ADEQUACY: (test code = 84672) (NOTE) INTERPRETATION: (test code = 08306) NILM/NO EPITH. ABNORMALITY;SEE BELOW PELT GRADER: (test code = 8101) RAMY Turcios (ASCP) LOCATION: (test code = 05634) (NOTE) CPT: (test code = 8140) (NOTE) HPV HIGH RISK WITH GENOTYPE, [id number] 00:00:00* Test Item Value Reference Range Interpretation Comme nts HPV HIGH RISK INTERP (test c ode = 49543) NEGATIVE HPV 16 (test code = 89991) NEGATIVE HPV 18 (test code = 68823) NEGATIVE HPV, HR, OTHER GENOTYPES (te st code = 65156) NEGATIVE Jacobo F AustinHPV HIGH RISK WITH GENOTYPE, [id number] 00:00:00* Test Item Value Reference Range Interpretation Comme nts HPV HIGH RISK INTERP (test c ode = 60950) NEGATIVE HPV 16 (test code = 25922) NEGATIVE HPV 18 (test code = 70367) NEGATIVE HPV, HR, OTHER GENOTYPES (te st code = 28478) NEGATIVE PAP TEST, THINPREP, [id number] 00:00:00* Test Item Value Reference Range Interpretation Comme nts SOURCE: (test code = 8001) Cervical/Endocervical SLIDES: (test code = 8011) 1 LMP: (test code = 8021) 09/25/2020 SPECIMEN ADEQUACY: (test code = 28858) (NOTE) INTERPRETATION: (test code = 13800) NILM/NO EPITH. ABNORMALITY;SEE BELOW PELT GRADER: (test code = 8101) RAMY Turcios (ASCP) LOCATION: (test code = 56695) (NOTE) CPT: (test code = 8140) (NOTE) HPV HIGH RISK WITH GENOTYPE, [id number] 00:00:00* Test Item Value Reference Range Interpretation Comme nts HPV HIGH RISK INTERP (test c ode = 74478) NEGATIVE HPV 16 (test code = 14314) NEGATIVE HPV 18 (test code = 67938) NEGATIVE HPV, HR, OTHER GENOTYPES (te st code = 39300) NEGATIVE PAP TEST, THINPREP, [id number] 00:00:00* Test Item Value Reference Range Interpretation Comme nts SOURCE: (test code = 8001) Cervical/Endocervical SLIDES: (test code = 8011) 1 LMP: (test code = 8021) 09/25/2020 SPECIMEN ADEQUACY: (test code = 34264) (NOTE) INTERPRETATION: (test code = 95420) NILM/NO EPITH. ABNORMALITY;SEE BELOW PELT GRADER: (test code = 8101) RAMY Turcios (ASCP) LOCATION: (test code = 95954) (NOTE) CPT: (test code = 8140) (NOTE) HPV HIGH RISK WITH GENOTYPE, [id number] 00:00:00* Test Item Value Reference Range Interpretation Comme nts HPV HIGH RISK INTERP (test c ode = 87317) NEGATIVE HPV 16 (test code = 79976) NEGATIVE HPV 18 (test code = 07226) NEGATIVE HPV, HR, OTHER GENOTYPES (te st code = 60344) NEGATIVE PAP TEST, THINPREP, [id number] 00:00:00* Test Item Value Reference Range Interpretation Comme nts SOURCE: (test code = 8001) Cervical/Endocervical SLIDES: (test code = 8011) 1 LMP: (test code = 8021) 09/25/2020 SPECIMEN ADEQUACY: (test code = 07300) (NOTE) INTERPRETATION: (test code = 26857) NILM/NO EPITH. ABNORMALITY;SEE BELOW PELT GRADER: (test code = 8101) RAMY Turcios (ASCP) LOCATION: (test code = 15718) (NOTE) CPT: (test code = 8140) (NOTE) HPV HIGH RISK WITH GENOTYPE, [id number] 00:00:00* Test Item Value Reference Range Interpretation Comme nts HPV HIGH RISK INTERP (test c ode = 01741) NEGATIVE HPV 16 (test code = 96317) NEGATIVE HPV 18 (test code = 23370) NEGATIVE HPV, HR, OTHER GENOTYPES (te st code = 95939) NEGATIVE PAP TEST, THINPREP, [id number] 00:00:00* Test Item Value Reference Range Interpretation Comme nts SOURCE: (test code = 8001) Cervical/Endocervical SLIDES: (test code = 8011) 1 LMP: (test code = 8021) 09/25/2020 SPECIMEN ADEQUACY: (test code = 67762) (NOTE) INTERPRETATION: (test code = 80552) NILM/NO EPITH. ABNORMALITY;SEE BELOW PELT GRADER: (test code = 8101) RAMY Turcios (ASCP) LOCATION: (test code = 39044) (NOTE) CPT: (test code = 8140) (NOTE) HPV HIGH RISK WITH GENOTYPE, [id number] 00:00:00* Test Item Value Reference Range Interpretation Comme nts HPV HIGH RISK INTERP (test c ode = 12371) NEGATIVE HPV 16 (test code = 56662) NEGATIVE HPV 18 (test code = 83117) NEGATIVE HPV, HR, OTHER GENOTYPES (te st code = 51860) NEGATIVE PAP TEST, THINPREP, [id number] 00:00:00* Test Item Value Reference Range Interpretation Comme nts SOURCE: (test code = 8001) Cervical/Endocervical SLIDES: (test code = 8011) 1 LMP: (test code = 8021) 09/25/2020 SPECIMEN ADEQUACY: (test code = 32153) (NOTE) INTERPRETATION: (test code = 17828) NILM/NO EPITH. ABNORMALITY;SEE BELOW PELT GRADER: (test code = 8101) RAMY Turcios (ASCP) LOCATION: (test code = 98151) (NOTE) CPT: (test code = 8140) (NOTE) CBC W/AUTO [id number] 00:00:00* Test Item Value Reference Range Interpretation Comme nts WBC (test code = 1001) 6.0 K/UL [...] COUNT (test code = 1015) 275 K/UL Jacobo [id number] 00:00:00* Test Item Value Reference Range Interpretation Comme nts TSH, THIRD GENERATION (test code = 2821) 5.170 UIU/ML Jacobo WittCBC W/AUTO [id number] 00:00:00* Test Item Value Reference Range Interpretation Comme nts WBC (test code = 1001) 6.0 K/UL [...] COUNT (test code = 1015) 275 K/UL Jacobo [id number] 00:00:00* Test Item Value Reference Range Interpretation Comme [facility] TSH, THIRD GENERATION (test code = 2821) 5.170 UIU/ML Jacobo WittCBC W/AUTO [id number] 00:00:00* Test Item Value Reference Range Interpretation Comme nts WBC (test code = 1001) 6.0 K/UL [...] COUNT (test code = 1015) 275 K/UL Jacobo [id number] 00:00:00* Test Item Value Reference Range Interpretation Comme [facility] TSH, THIRD GENERATION (test code = 2821) 5.170 UIU/ML CBC W/AUTO [id number] 00:00:00* Test Item Value Reference Range Interpretation Comme nts WBC (test code = 1001) 6.0 K/UL [...] COUNT (test code = 1015) 275 K/UL [id number] 00:00:00* Test Item Value Reference Range Interpretation Comme nts TSH, THIRD GENERATION (test code = 2821) 5.170 UIU/ML CBC W/AUTO [id number] 00:00:00* Test Item Value Reference Range Interpretation Comme nts WBC (test code = 1001) 6.0 K/UL [...] COUNT (test code = 1015) 275 K/UL [id number] 00:00:00* Test Item Value Reference Range Interpretation Comme nts TSH, THIRD GENERATION (test code = 2821) 5.170 UIU/ML [id number] 00:00:00* Test Item Value Reference Range Interpretation Comme nts TSH, THIRD GENERATION (test code = 2821) 5.170 UIU/ML Jacobonikko WittCBC W/AUTO [id number] 00:00:00* Test Item Value Reference Range Interpretation Comme nts WBC (test code = 1001) 6.0 K/UL [...] COUNT (test code = 1015) 275 K/UL [id number] 00:00:00* Test Item Value Reference Range Interpretation Comme nts TSH, THIRD GENERATION (test code = 2821) 5.170 UIU/ML CBC W/AUTO [id number] 00:00:00* Test Item Value Reference Range Interpretation Comme nts WBC (test code = 1001) 6.0 K/UL [...] COUNT (test code = 1015) 275 K/UL [id number] 00:00:00* Test Item Value Reference Range Interpretation Comme nts TSH, THIRD GENERATION (test code = 2821) 5.170 UIU/ML CBC W/AUTO [id number] 00:00:00* Test Item Value Reference Range Interpretation Comme nts WBC (test code = 1001) 6.0 K/UL [...] code = 1015) 275 K/UL CBC W/AUTO [id number] 00:00:00* Test Item Value Reference Range Interpretation Comme nts WBC (test code = 1001) 6.0 K/UL [...] COUNT (test code = 1015) 275 K/UL [id number] 00:00:00* Test Item Value Reference Range Interpretation Comme nts TSH, THIRD GENERATION (test code = 2821) 5.170 UIU/ML THYROID II PROFILE (T3U, T4, T7, TSH)2017-01-27 00:00:00* Test Item Value Reference Range Interpretation Comme nts T3 UPTAKE (test code = 2817) 31.7 % T4 (THYROXINE) (test code = 2819) 6.1 UG/DL CALCULATED T7 (FTI) (test co de = 2820) 1.93 TSH (test code = 2821) 0.44 UIU/ML Jacobo Jalloh EduarCBC W/AUTO [id number] 00:00:00* Test Item Value Reference Range Interpretation Comme nts WBC (test code = 1001) 8.9 K/UL [...] K/UL COMMENTS (test code = 1016) (NOTE) Jacobo WittTHYROID II PROFILE (T3U, T4, T7, TSH)2017-01-27 00:00:00* Test Item Value Reference Range Interpretation Comme nts T3 UPTAKE (test code = 2817) 31.7 % T4 (THYROXINE) (test code = 2819) 6.1 UG/DL CALCULATED T7 (FTI) (test co de = 2820) 1.93 TSH (test code = 2821) 0.44 UIU/ML [facility] [id number] 00:00:00* Test Item Value Reference Range Interpretation Comme nts WBC (test code = 1001) 8.9 K/UL [...] K/UL COMMENTS (test code = 1016) (NOTE) Jacobo WittTHYROID II PROFILE (T3U, T4, T7, TSH)2017-01-27 00:00:00* Test Item Value Reference Range Interpretation Comme nts T3 UPTAKE (test code = 2817) 31.7 % T4 (THYROXINE) (test code = 2819) 6.1 UG/DL CALCULATED T7 (FTI) (test co de = 2820) 1.93 TSH (test code = 2821) 0.44 UIU/ML Jacobo WittCBC W/AUTO [id number] 00:00:00* Test Item Value Reference Range Interpretation Comme nts WBC (test code = 1001) 8.9 K/UL [...] THYROID II PROFILE (T3U, T4, T7, TSH)2017-01-27 00:00:00* Test Item Value Reference Range Interpretation Comme nts T3 UPTAKE (test code = 2817) 31.7 % T4 (THYROXINE) (test code = 2819) 6.1 UG/DL CALCULATED T7 (FTI) (test co de = 2820) 1.93 TSH (test code = 2821) 0.44 UIU/ML CBC W/AUTO [id number] 00:00:00* Test Item Value Reference Range Interpretation Comme nts WBC (test code = 1001) 8.9 K/UL [...] (test code = 1016) (NOTE) CBC W/AUTO [id number] 00:00:00* Test Item Value Reference Range Interpretation Comme nts WBC (test code = 1001) 8.9 K/UL [...] K/UL COMMENTS (test code = 1016) (NOTE) Jacobo Jalloh AustinTHYROID II PROFILE (T3U, T4, T7, TSH)2017-01-27 00:00:00* Test Item Value Reference Range Interpretation Comme nts T3 UPTAKE (test code = 2817) 31.7 % T4 (THYROXINE) (test code = 2819) 6.1 UG/DL CALCULATED T7 (FTI) (test co de = 2820) 1.93 TSH (test code = 2821) 0.44 UIU/ML CBC W/AUTO [id number] 00:00:00* Test Item Value Reference Range Interpretation Comme nts WBC (test code = 1001) 8.9 K/UL [...] THYROID II PROFILE (T3U, T4, T7, TSH)2017-01-27 00:00:00* Test Item Value Reference Range Interpretation Comme nts T3 UPTAKE (test code = 2817) 31.7 % T4 (THYROXINE) (test code = 2819) 6.1 UG/DL CALCULATED T7 (FTI) (test co de = 2820) 1.93 TSH (test code = 2821) 0.44 UIU/ML CBC W/AUTO [id number] 00:00:00* Test Item Value Reference Range Interpretation Comme nts WBC (test code = 1001) 8.9 K/UL [...] THYROID II PROFILE (T3U, T4, T7, TSH)2017-01-27 00:00:00* Test Item Value Reference Range Interpretation Comme nts T3 UPTAKE (test code = 2817) 31.7 % T4 (THYROXINE) (test code = 2819) 6.1 UG/DL CALCULATED T7 (FTI) (test co de = 2820) 1.93 TSH (test code = 2821) 0.44 UIU/ML CBC W/AUTO [id number] 00:00:00* Test Item Value Reference Range Interpretation Comme nts WBC (test code = 1001) 8.9 K/UL [...] THYROID II PROFILE (T3U, T4, T7, TSH)2017-01-27 00:00:00* Test Item Value Reference Range Interpretation Comme nts T3 UPTAKE (test code = 2817) 31.7 % T4 (THYROXINE) (test code = 2819) 6.1 UG/DL CALCULATED T7 (FTI) (test co de = 2820) 1.93 TSH (test code = 2821) 0.44 UIU/ML CBC W/AUTO [id number] 00:00:00* Test Item Value Reference Range Interpretation Comme nts WBC (test code = 1001) 8.9 K/UL [...] THYROID II PROFILE (T3U, T4, T7, TSH)2017-01-27 00:00:00* Test Item Value Reference Range Interpretation Comme nts T3 UPTAKE (test code = 2817) 31.7 % T4 (THYROXINE) (test code = 2819) 6.1 UG/DL CALCULATED T7 (FTI) (test co de = 2820) 1.93 TSH (test code = 2821) 0.44 UIU/ML [id number] 00:00:00* Test Item Value Reference Range Interpretation Comme nts FERRITIN (test code = 207) 2 NG/ML Jacobo Jalloh EduarIRON BINDING CAPACITY AND IRON AND % [id number] 00:00:00* Test Item Value Reference Range Interpretation Comme nts IRON, SERUM (test code = 2222) 12 UG/DL UNSATURATED IBC (test code = 33432) 496 UG/DL CALC TOTAL IBC (test code = 2076) 508 UG/DL CALC % IRON SAT (test code = 207) 2 % Jacobo Jalloh EduarCBC W/AUTO [id number] 00:00:00* Test Item Value Reference Range Interpretation Comme nts WBC (test code = 1001) 7.9 K/UL [...] K/UL COMMENTS (test code = 1016) (NOTE) Jacobo [id number] 00:00:00* Test Item Value Reference Range Interpretation Comme nts TSH (test code = 2821) 5.4 UIU/ML Jacobo Jalloh [id number] 00:00:00* Test Item Value Reference Range Interpretation Comme nts FERRITIN (test code = 2074) 2 NG/ML Jacobo Jalloh AustinIRON BINDING CAPACITY AND IRON AND % [id number] 00:00:00* Test Item Value Reference Range Interpretation Comme nts IRON, SERUM (test code = 2221) 12 UG/DL UNSATURATED IBC (test code = ) 496 UG/DL CALC TOTAL IBC (test code = 2076) 508 UG/DL CALC % IRON SAT (test code = 2078) 2 % Jacobo Jalloh AustinCBC W/AUTO [id number] 00:00:00* Test Item Value Reference Range Interpretation Comme nts WBC (test code = 1001) 7.9 K/UL [...] K/UL COMMENTS (test code = 1016) (NOTE) Jacobo [id number] 00:00:00* Test Item Value Reference Range Interpretation Comme nts TSH (test code = 2821) 5.4 UIU/ML Jacobo [id number] 00:00:00* Test Item Value Reference Range Interpretation Comme nts FERRITIN (test code = 5) 2 NG/ML Jacobo Jalloh AustinIRON BINDING CAPACITY AND IRON AND % [id number] 00:00:00* Test Item Value Reference Range Interpretation Comme nts IRON, SERUM (test code = 2221) 12 UG/DL UNSATURATED IBC (test code = 34273) 496 UG/DL CALC TOTAL IBC (test code = 2076) 508 UG/DL CALC % IRON SAT (test code = 2078) 2 % Jacobo Jalloh AustinIRON BINDING CAPACITY AND IRON AND % [id number] 00:00:00* Test Item Value Reference Range Interpretation Comme nts IRON, SERUM (test code = 2) 12 UG/DL UNSATURATED IBC (test code = 51359) 496 UG/DL CALC TOTAL IBC (test code = 7) 508 UG/DL CALC % IRON SAT (test code = 2078) 2 % CBC W/AUTO [id number] 00:00:00* Test Item Value Reference Range Interpretation Comme nts WBC (test code = 1001) 7.9 K/UL [...] K/UL COMMENTS (test code = 1016) (NOTE) [id number] 00:00:00* Test Item Value Reference Range Interpretation Comme nts FERRITIN (test code = 5) 2 NG/ML IRON BINDING CAPACITY AND IRON AND % [id number] 00:00:00* Test Item Value Reference Range Interpretation Comme nts IRON, SERUM (test code = 2) 12 UG/DL UNSATURATED IBC (test code = 47672) 496 UG/DL CALC TOTAL IBC (test code = 7) 508 UG/DL CALC % IRON SAT (test code = 2078) 2 % CBC W/AUTO [id number] 00:00:00* Test Item Value Reference Range Interpretation Comme nts WBC (test code = 1001) 7.9 K/UL [...] K/UL COMMENTS (test code = 1016) (NOTE) [id number] 00:00:00* Test Item Value Reference Range Interpretation Comme nts TSH (test code = 2821) 5.4 UIU/ML [id number] 00:00:00* Test Item Value Reference Range Interpretation Comme nts TSH (test code = 2821) 5.4 UIU/ML [id number] 00:00:00* Test Item Value Reference Range Interpretation Comme nts FERRITIN (test code = 2075) 2 NG/ML IRON BINDING CAPACITY AND IRON AND % [id number] 00:00:00* Test Item Value Reference Range Interpretation Comme nts IRON, SERUM (test code = 2222) 12 UG/DL UNSATURATED IBC (test code = 95177) 496 UG/DL CALC TOTAL IBC (test code = 2077) 508 UG/DL CALC % IRON SAT (test code = 2079) 2 % CBC W/AUTO [id number] 00:00:00* Test Item Value Reference Range Interpretation Comme nts WBC (test code = 1001) 7.9 K/UL [...] K/UL COMMENTS (test code = 1016) (NOTE) [id number] 00:00:00* Test Item Value Reference Range Interpretation Comme nts TSH (test code = 2821) 5.4 UIU/ML [id number] 00:00:00* Test Item Value Reference Range Interpretation Comme nts FERRITIN (test code = 2075) 2 NG/ML IRON BINDING CAPACITY AND IRON AND % [id number] 00:00:00* Test Item Value Reference Range Interpretation Comme nts IRON, SERUM (test code = 2222) 12 UG/DL UNSATURATED IBC (test code = 16930) 496 UG/DL CALC TOTAL IBC (test code = 2077) 508 UG/DL CALC % IRON SAT (test code = 2079) 2 % CBC W/AUTO [id number] 00:00:00* Test Item Value Reference Range Interpretation Comme nts WBC (test code = 1001) 7.9 K/UL [...] K/UL COMMENTS (test code = 1016) (NOTE) [id number] 00:00:00* Test Item Value Reference Range Interpretation Comme nts TSH (test code = 2821) 5.4 UIU/ML [id number] 00:00:00* Test Item Value Reference Range Interpretation Comme nts FERRITIN (test code = 2075) 2 NG/ML IRON BINDING CAPACITY AND IRON AND % [id number] 00:00:00* Test Item Value Reference Range Interpretation Comme nts IRON, SERUM (test code = 2222) 12 UG/DL UNSATURATED IBC (test code = 84737) 496 UG/DL CALC TOTAL IBC (test code = 7) 508 UG/DL CALC % IRON SAT (test code = 2079) 2 % CBC W/AUTO [id number] 00:00:00* Test Item Value Reference Range Interpretation Comme nts WBC (test code = 1001) 7.9 K/UL [...] K/UL COMMENTS (test code = 1016) (NOTE) Jacobo WittCBC W/AUTO [id number] 00:00:00* Test Item Value Reference Range Interpretation Comme nts WBC (test code = 1001) 7.9 K/UL [...] K/UL COMMENTS (test code = 1016) (NOTE) [id number] 00:00:00* Test Item Value Reference Range Interpretation Comme nts TSH (test code = 2821) 5.4 UIU/ML [id number] 00:00:00* Test Item Value Reference Range Interpretation Comme nts FERRITIN (test code = 2075) 2 NG/ML [id number] 00:00:00* Test Item Value Reference Range Interpretation Comme nts TSH (test code = 2821) 5.4 UIU/ML Jacobo F AustinIRON BINDING CAPACITY AND IRON AND % [id number] 00:00:00* Test Item Value Reference Range Interpretation Comme nts IRON, SERUM (test code = 2222) 12 UG/DL UNSATURATED IBC (test code = 57921) 496 UG/DL CALC TOTAL IBC (test code = 2077) 508 UG/DL CALC % IRON SAT (test code = 2079) 2 % CBC W/AUTO [id number] 00:00:00* Test Item Value Reference Range Interpretation Comme nts WBC (test code = 1001) 7.9 K/UL [...] K/UL COMMENTS (test code = 1016) (NOTE) [id number] 00:00:00* Test Item Value Reference Range Interpretation Comme nts FERRITIN (test code = 2075) 2 NG/ML [id number] 00:00:00* Test Item Value Reference Range Interpretation Comme nts TSH (test code = 2821) 5.4 UIU/ML GLYCATED HEMOGLOBIN [REFLEX]2016-08-26 00:00:00* Test Item Value Reference Range Interpretation Comme nts GLYCATED HEMOGLOBIN (test co de = 32978) 4.5 % AVERAGE BLOOD GLUCOSE (test code = 53031) 82 mg/dL Jacobo Jalloh AustinGLYCATED HEMOGLOBIN [REFLEX]2016-08-26 00:00:00* Test Item Value Reference Range Interpretation Comme nts GLYCATED HEMOGLOBIN (test co de = 20220) 4.5 % AVERAGE BLOOD GLUCOSE (test code = 62589) 82 mg/dL Jacobo Jalloh AustinGLYCATED HEMOGLOBIN [REFLEX]2016-08-26 00:00:00* Test Item Value Reference Range Interpretation Comme nts GLYCATED HEMOGLOBIN (test co de = 13507) 4.5 % AVERAGE BLOOD GLUCOSE (test code = 67769) 82 mg/dL Jacobo Jalloh AustinGLYCATED HEMOGLOBIN [REFLEX]2016-08-26 00:00:00* Test Item Value Reference Range Interpretation Comme nts GLYCATED HEMOGLOBIN (test co de = 28910) 4.5 % AVERAGE BLOOD GLUCOSE (test code = 39907) 82 mg/dL GLYCATED HEMOGLOBIN [REFLEX]2016-08-26 00:00:00* Test Item Value Reference Range Interpretation Comme nts GLYCATED HEMOGLOBIN (test co de = 55654) 4.5 % AVERAGE BLOOD GLUCOSE (test code = 04227) 82 mg/dL GLYCATED HEMOGLOBIN [REFLEX]2016-08-26 00:00:00* Test Item Value Reference Range Interpretation Comme nts GLYCATED HEMOGLOBIN (test co de = 38986) 4.5 % AVERAGE BLOOD GLUCOSE (test code = 05170) 82 mg/dL GLYCATED HEMOGLOBIN [REFLEX]2016-08-26 00:00:00* Test Item Value Reference Range Interpretation Comme nts GLYCATED HEMOGLOBIN (test co de = 59429) 4.5 % AVERAGE BLOOD GLUCOSE (test code = 64951) 82 mg/dL GLYCATED HEMOGLOBIN [REFLEX]2016-08-26 00:00:00* Test Item Value Reference Range Interpretation Comme nts GLYCATED HEMOGLOBIN (test co de = 50574) 4.5 % AVERAGE BLOOD GLUCOSE (test code = 71995) 82 mg/dL GLYCATED HEMOGLOBIN [REFLEX]2016-08-26 00:00:00* Test Item Value Reference Range Interpretation Comme nts GLYCATED HEMOGLOBIN (test co de = 37204) 4.5 % AVERAGE BLOOD GLUCOSE (test code = 71769) 82 mg/dL THYROID II PROFILE (T3U, T4, T7, TSH)2016-08-25 00:00:00* Test Item Value Reference Range Interpretation Comme nts T3 UPTAKE (test code = 2817) 27.1 % T4 (THYROXINE) (test code = 2819) 4.2 UG/DL CALCULATED T7 (FTI) (test co de = 2820) 1.14 TSH (test code = 2821) 4.4 UIU/ML Jacobo WittCOMPREHENSIVE METABOLIC [id number] 00:00:00* Test Item Value Reference Range Interpretation Comme nts GLUCOSE (test code = 2217) 98 MG/DL BUN (test code = 2208) 11 MG/DL CREATININE (test code = 2214) 0.65 MG/DL eGFR AMER. (test cod e = 28793) 135 ML/MIN/1.73 eGFR NON- AMER. (test code = 43468) 117 ML/MIN/1.73 CALC BUN/CREAT (test code = 2235) 17 RATIO SODIUM (test code = 2231) 138 MEQ/L POTASSIUM (test code = 2228) 3.8 MEQ/L CHLORIDE (test code = 2215) 102 MEQ/L CARBON DIOXIDE (test code = 2206) 24 MEQ/L CALCIUM (test code = 2209) 8.4 MG/DL PROTEIN, TOTAL (test code = 2229) 7.6 G/DL ALBUMIN (test code = 2201) 4.2 G/DL CALC GLOBULIN (test code = 2240) 3.4 G/DL CALC A/G RATIO (test code = 2234) 1.2 RATIO BILIRUBIN, TOTAL (test code = 2207) 0.4 MG/DL ALKALINE PHOSPHATASE (test code = 2204) 68 U/L AST (test code = 2218) 19 U/L ALT (test code = 2219) 13 U/L Jacobo WittLIPID [id number] 00:00:00* Test Item Value Reference Range Interpretation Comme nts CHOLESTEROL (test code = 2210) 148 MG/DL TRIGLYCERIDES (test code = 2232) 103 MG/DL HDL CHOLESTEROL (test code = 2220) 40 MG/DL CALC LDL CHOL (test code = 2237) 87 MG/DL RISK RATIO LDL/HDL (test cod e = 2238) 2.19 RATIO Jacobo WittCBC W/AUTO [id number] 00:00:00* Test Item Value Reference Range Interpretation Comme nts WBC (test code = 1001) 6.6 K/UL [...] K/UL COMMENTS (test code = 1016) (NOTE) Jacobo WittHEMOGLOBIN [id number] 00:00:00* Test Item Value Reference Range Interpretation Comme [facility] HEMOGLOBIN A1c (test code = 68506) TEST NOT PERFORMED % Jacobo WittTHYROID II PROFILE (T3U, T4, T7, TSH)2016-08-25 00:00:00* Test Item Value Reference Range Interpretation Comme nts T3 UPTAKE (test code = 2817) 27.1 % T4 (THYROXINE) (test code = 2819) 4.2 UG/DL CALCULATED T7 (FTI) (test co de = 2820) 1.14 TSH (test code = 2821) 4.4 UIU/ML Jacobo Jalloh EduarCOMPREHENSIVE METABOLIC [id number] 00:00:00* Test Item Value Reference Range Interpretation Comme nts GLUCOSE (test code = 2217) 98 MG/DL BUN (test code = 2208) 11 MG/DL CREATININE (test code = 2214) 0.65 MG/DL eGFR AMER. (test cod e = 52078) 135 ML/MIN/1.73 eGFR NON- AMER. (test code = 73238) 117 ML/MIN/1.73 CALC BUN/CREAT (test code = 2235) 17 RATIO SODIUM (test code = 2231) 138 MEQ/L POTASSIUM (test code = 2228) 3.8 MEQ/L CHLORIDE (test code = 2215) 102 MEQ/L CARBON DIOXIDE (test code = 2206) 24 MEQ/L CALCIUM (test code = 2209) 8.4 MG/DL PROTEIN, TOTAL (test code = 2229) 7.6 G/DL ALBUMIN (test code = 2201) 4.2 G/DL CALC GLOBULIN (test code = 2240) 3.4 G/DL CALC A/G RATIO (test code = 2234) 1.2 RATIO BILIRUBIN, TOTAL (test code = 2207) 0.4 MG/DL ALKALINE PHOSPHATASE (test code = 2204) 68 U/L AST (test code = 2218) 19 U/L ALT (test code = 2219) 13 U/L Jacobo WittLIPID [id number] 00:00:00* Test Item Value Reference Range Interpretation Comme nts CHOLESTEROL (test code = 2210) 148 MG/DL TRIGLYCERIDES (test code = 2232) 103 MG/DL HDL CHOLESTEROL (test code = 2220) 40 MG/DL CALC LDL CHOL (test code = 2237) 87 MG/DL RISK RATIO LDL/HDL (test cod e = 2238) 2.19 RATIO Jacobo WittCBC W/AUTO [id number] 00:00:00* Test Item Value Reference Range Interpretation Comme nts WBC (test code = 1001) 6.6 K/UL [...] K/UL COMMENTS (test code = 1016) (NOTE) Jacobo WittHEMOGLOBIN [id number] 00:00:00* Test Item Value Reference Range Interpretation Comme nts HEMOGLOBIN A1c (test code = 58281) TEST NOT PERFORMED % Jacobo Jalloh EduarTHYROID II PROFILE (T3U, T4, T7, TSH)2016-08-25 00:00:00* Test Item Value Reference Range Interpretation Comme nts T3 UPTAKE (test code = 2817) 27.1 % T4 (THYROXINE) (test code = 2819) 4.2 UG/DL CALCULATED T7 (FTI) (test co de = 2820) 1.14 TSH (test code = 2821) 4.4 UIU/ML Jacobo Jalloh AustinCOMPREHENSIVE METABOLIC [id number] 00:00:00* Test Item Value Reference Range Interpretation Comme nts GLUCOSE (test code = 2217) 98 MG/DL BUN (test code = 2208) 11 MG/DL CREATININE (test code = 2214) 0.65 MG/DL eGFR AMER. (test cod e = 36470) 135 ML/MIN/1.73 eGFR NON- AMER. (test code = 68888) 117 ML/MIN/1.73 CALC BUN/CREAT (test code = 2235) 17 RATIO SODIUM (test code = 2231) 138 MEQ/L POTASSIUM (test code = 2228) 3.8 MEQ/L CHLORIDE (test code = 2215) 102 MEQ/L CARBON DIOXIDE (test code = 2206) 24 MEQ/L CALCIUM (test code = 2209) 8.4 MG/DL PROTEIN, TOTAL (test code = 2229) 7.6 G/DL ALBUMIN (test code = 2201) 4.2 G/DL CALC GLOBULIN (test code = 2240) 3.4 G/DL CALC A/G RATIO (test code = 2234) 1.2 RATIO BILIRUBIN, TOTAL (test code = 2207) 0.4 MG/DL ALKALINE PHOSPHATASE (test code = 2204) 68 U/L AST (test code = 2218) 19 U/L ALT (test code = 2219) 13 U/L Jacobo Jalloh AustinLIPID [id number] 00:00:00* Test Item Value Reference Range Interpretation Comme nts CHOLESTEROL (test code = 2210) 148 MG/DL TRIGLYCERIDES (test code = 2232) 103 MG/DL HDL CHOLESTEROL (test code = 2220) 40 MG/DL CALC LDL CHOL (test code = 2237) 87 MG/DL RISK RATIO LDL/HDL (test cod e = 2238) 2.19 RATIO Jacobo Jalloh AustinCOMPREHENSIVE METABOLIC [id number] 00:00:00* Test Item Value Reference Range Interpretation Comme nts GLUCOSE (test code = 2217) 98 MG/DL BUN (test code = 2208) 11 MG/DL CREATININE (test code = 2214) 0.65 MG/DL eGFR AMER. (test cod e = 76663) 135 ML/MIN/1.73 eGFR NON- AMER. (test code = 22657) 117 ML/MIN/1.73 CALC BUN/CREAT (test code = 2235) 17 RATIO SODIUM (test code = 2231) 138 MEQ/L POTASSIUM (test code = 2228) 3.8 MEQ/L CHLORIDE (test code = 2215) 102 MEQ/L CARBON DIOXIDE (test code = 2206) 24 MEQ/L CALCIUM (test code = 2209) 8.4 MG/DL PROTEIN, TOTAL (test code = 2229) 7.6 G/DL ALBUMIN (test code = 2201) 4.2 G/DL CALC GLOBULIN (test code = 2240) 3.4 G/DL CALC A/G RATIO (test code = 2234) 1.2 RATIO BILIRUBIN, TOTAL (test code = 2207) 0.4 MG/DL ALKALINE PHOSPHATASE (test code = 2204) 68 U/L AST (test code = 2218) 19 U/L ALT (test code = 2219) 13 U/L LIPID [id number] 00:00:00* Test Item Value Reference Range Interpretation Comme nts CHOLESTEROL (test code = 2210) 148 MG/DL TRIGLYCERIDES (test code = 2232) 103 MG/DL HDL CHOLESTEROL (test code = 2220) 40 MG/DL CALC LDL CHOL (test code = 2237) 87 MG/DL RISK RATIO LDL/HDL (test cod e = 2238) 2.19 RATIO CBC W/AUTO [id number] 00:00:00* Test Item Value Reference Range Interpretation Comme nts WBC (test code = 1001) 6.6 K/UL [...] (test code = 1016) (NOTE) CBC W/AUTO [id number] 00:00:00* Test Item Value Reference Range Interpretation Comme nts WBC (test code = 1001) 6.6 K/UL [...] COMMENTS (test code = 1016) (NOTE) HEMOGLOBIN [id number] 00:00:00* Test Item Value Reference Range Interpretation Comme nts HEMOGLOBIN A1c (test code = 58514) TEST NOT PERFORMED % THYROID II PROFILE (T3U, T4, T7, TSH)2016-08-25 00:00:00* Test Item Value Reference Range Interpretation Comme nts T3 UPTAKE (test code = 2817) 27.1 % T4 (THYROXINE) (test code = 2819) 4.2 UG/DL CALCULATED T7 (FTI) (test co de = 2820) 1.14 TSH (test code = 2821) 4.4 UIU/ML HEMOGLOBIN [id number] 00:00:00* Test Item Value Reference Range Interpretation Comme nts HEMOGLOBIN A1c (test code = 86168) TEST NOT PERFORMED % THYROID II PROFILE (T3U, T4, T7, TSH)2016-08-25 00:00:00* Test Item Value Reference Range Interpretation Comme nts T3 UPTAKE (test code = 2817) 27.1 % T4 (THYROXINE) (test code = 2819) 4.2 UG/DL CALCULATED T7 (FTI) (test co de = 2820) 1.14 TSH (test code = 2821) 4.4 UIU/ML COMPREHENSIVE METABOLIC [id number] 00:00:00* Test Item Value Reference Range Interpretation Comme nts GLUCOSE (test code = 2217) 98 MG/DL BUN (test code = 2208) 11 MG/DL CREATININE (test code = 2214) 0.65 MG/DL eGFR AMER. (test cod e = 05050) 135 ML/MIN/1.73 eGFR NON- AMER. (test code = 79450) 117 ML/MIN/1.73 CALC BUN/CREAT (test code = 2235) 17 RATIO SODIUM (test code = 2231) 138 MEQ/L POTASSIUM (test code = 2228) 3.8 MEQ/L CHLORIDE (test code = 2215) 102 MEQ/L CARBON DIOXIDE (test code = 2206) 24 MEQ/L CALCIUM (test code = 2209) 8.4 MG/DL PROTEIN, TOTAL (test code = 2229) 7.6 G/DL ALBUMIN (test code = 2201) 4.2 G/DL CALC GLOBULIN (test code = 2240) 3.4 G/DL CALC A/G RATIO (test code = 2234) 1.2 RATIO BILIRUBIN, TOTAL (test code = 2207) 0.4 MG/DL ALKALINE PHOSPHATASE (test code = 2204) 68 U/L AST (test code = 2218) 19 U/L ALT (test code = 2219) 13 U/L LIPID [id number] 00:00:00* Test Item Value Reference Range Interpretation Comme nts CHOLESTEROL (test code = 2210) 148 MG/DL TRIGLYCERIDES (test code = 2232) 103 MG/DL HDL CHOLESTEROL (test code = 2220) 40 MG/DL CALC LDL CHOL (test code = 2237) 87 MG/DL RISK RATIO LDL/HDL (test cod e = 2238) 2.19 RATIO CBC W/AUTO [id number] 00:00:00* Test Item Value Reference Range Interpretation Comme nts WBC (test code = 1001) 6.6 K/UL [...] COMMENTS (test code = 1016) (NOTE) HEMOGLOBIN [id number] 00:00:00* Test Item Value Reference Range Interpretation Comme nts HEMOGLOBIN A1c (test code = 75148) TEST NOT PERFORMED % THYROID II PROFILE (T3U, T4, T7, TSH)2016-08-25 00:00:00* Test Item Value Reference Range Interpretation Comme nts T3 UPTAKE (test code = 2817) 27.1 % T4 (THYROXINE) (test code = 2819) 4.2 UG/DL CALCULATED T7 (FTI) (test co de = 2820) 1.14 TSH (test code = 2821) 4.4 UIU/ML COMPREHENSIVE METABOLIC [id number] 00:00:00* Test Item Value Reference Range Interpretation Comme nts GLUCOSE (test code = 2217) 98 MG/DL BUN (test code = 2208) 11 MG/DL CREATININE (test code = 2214) 0.65 MG/DL eGFR AMER. (test cod e = 03475) 135 ML/MIN/1.73 eGFR NON- AMER. (test code = 17850) 117 ML/MIN/1.73 CALC BUN/CREAT (test code = 2235) 17 RATIO SODIUM (test code = 2231) 138 MEQ/L POTASSIUM (test code = 2228) 3.8 MEQ/L CHLORIDE (test code = 2215) 102 MEQ/L CARBON DIOXIDE (test code = 2206) 24 MEQ/L CALCIUM (test code = 2209) 8.4 MG/DL PROTEIN, TOTAL (test code = 2229) 7.6 G/DL ALBUMIN (test code = 2201) 4.2 G/DL CALC GLOBULIN (test code = 2240) 3.4 G/DL CALC A/G RATIO (test code = 2234) 1.2 RATIO BILIRUBIN, TOTAL (test code = 2207) 0.4 MG/DL ALKALINE PHOSPHATASE (test code = 2204) 68 U/L AST (test code = 2218) 19 U/L ALT (test code = 2219) 13 U/L LIPID [id number] 00:00:00* Test Item Value Reference Range Interpretation Comme nts CHOLESTEROL (test code = 2210) 148 MG/DL TRIGLYCERIDES (test code = 2232) 103 MG/DL HDL CHOLESTEROL (test code = 2220) 40 MG/DL CALC LDL CHOL (test code = 2237) 87 MG/DL RISK RATIO LDL/HDL (test cod e = 2238) 2.19 RATIO CBC W/AUTO [id number] 00:00:00* Test Item Value Reference Range Interpretation Comme nts WBC (test code = 1001) 6.6 K/UL [...] COMMENTS (test code = 1016) (NOTE) HEMOGLOBIN [id number] 00:00:00* Test Item Value Reference Range Interpretation Comme [facility] HEMOGLOBIN A1c (test code = 09404) TEST NOT PERFORMED % THYROID II PROFILE (T3U, T4, T7, TSH)2016-08-25 00:00:00* Test Item Value Reference Range Interpretation Comme [facility] T3 UPTAKE (test code = 2817) 27.1 % T4 (THYROXINE) (test code = 2819) 4.2 UG/DL CALCULATED T7 (FTI) (test co de = 2820) 1.14 TSH (test code = 2821) 4.4 UIU/ML CBC W/AUTO [id number] 00:00:00* Test Item Value Reference Range Interpretation Comme nts WBC (test code = 1001) 6.6 K/UL [...] K/UL COMMENTS (test code = 1016) (NOTE) Jacobo Jalloh EduarCOMPREHENSIVE METABOLIC [id number] 00:00:00* Test Item Value Reference Range Interpretation Comme nts GLUCOSE (test code = 2217) 98 MG/DL BUN (test code = 2208) 11 MG/DL CREATININE (test code = 2214) 0.65 MG/DL eGFR AMER. (test cod e = 95999) 135 ML/MIN/1.73 eGFR NON- AMER. (test code = 03386) 117 ML/MIN/1.73 CALC BUN/CREAT (test code = 2235) 17 RATIO SODIUM (test code = 2231) 138 MEQ/L POTASSIUM (test code = 2228) 3.8 MEQ/L CHLORIDE (test code = 2215) 102 MEQ/L CARBON DIOXIDE (test code = 2206) 24 MEQ/L CALCIUM (test code = 2209) 8.4 MG/DL PROTEIN, TOTAL (test code = 2229) 7.6 G/DL ALBUMIN (test code = 2201) 4.2 G/DL CALC GLOBULIN (test code = 2240) 3.4 G/DL CALC A/G RATIO (test code = 2234) 1.2 RATIO BILIRUBIN, TOTAL (test code = 2207) 0.4 MG/DL ALKALINE PHOSPHATASE (test code = 2204) 68 U/L AST (test code = 2218) 19 U/L ALT (test code = 2219) 13 U/L LIPID [id number] 00:00:00* Test Item Value Reference Range Interpretation Comme nts CHOLESTEROL (test code = 2210) 148 MG/DL TRIGLYCERIDES (test code = 2232) 103 MG/DL HDL CHOLESTEROL (test code = 2220) 40 MG/DL CALC LDL CHOL (test code = 2237) 87 MG/DL RISK RATIO LDL/HDL (test cod e = 2238) 2.19 RATIO CBC W/AUTO [id number] 00:00:00* Test Item Value Reference Range Interpretation Comme nts WBC (test code = 1001) 6.6 K/UL [...] COMMENTS (test code = 1016) (NOTE) HEMOGLOBIN [id number] 00:00:00* Test Item Value Reference Range Interpretation Comme [facility] HEMOGLOBIN A1c (test code = 33223) TEST NOT PERFORMED % THYROID II PROFILE (T3U, T4, T7, TSH)[id number] 00:00:00* Test Item Value Reference Range Interpretation Comme nts T3 UPTAKE (test code = 2817) 27.1 % T4 (THYROXINE) (test code = 2819) 4.2 UG/DL CALCULATED T7 (FTI) (test co de = 2820) 1.14 TSH (test code = 2821) 4.4 UIU/ML COMPREHENSIVE METABOLIC [id number] 00:00:00* Test Item Value Reference Range Interpretation Comme nts GLUCOSE (test code = 2217) 98 MG/DL BUN (test code = 2208) 11 MG/DL CREATININE (test code = 2214) 0.65 MG/DL eGFR AMER. (test cod e = 96366) 135 ML/MIN/1.73 eGFR NON- AMER. (test code = 51506) 117 ML/MIN/1.73 CALC BUN/CREAT (test code = 2235) 17 RATIO SODIUM (test code = 2231) 138 MEQ/L POTASSIUM (test code = 2228) 3.8 MEQ/L CHLORIDE (test code = 2215) 102 MEQ/L CARBON DIOXIDE (test code = 2206) 24 MEQ/L CALCIUM (test code = 2209) 8.4 MG/DL PROTEIN, TOTAL (test code = 2229) 7.6 G/DL ALBUMIN (test code = 2201) 4.2 G/DL CALC GLOBULIN (test code = 2240) 3.4 G/DL CALC A/G RATIO (test code = 2234) 1.2 RATIO BILIRUBIN, TOTAL (test code = 2207) 0.4 MG/DL ALKALINE PHOSPHATASE (test code = 2204) 68 U/L AST (test code = 2218) 19 U/L ALT (test code = 2219) 13 U/L LIPID [id number] 00:00:00* Test Item Value Reference Range Interpretation Comme nts CHOLESTEROL (test code = 2210) 148 MG/DL TRIGLYCERIDES (test code = 2232) 103 MG/DL HDL CHOLESTEROL (test code = 2220) 40 MG/DL CALC LDL CHOL (test code = 2237) 87 MG/DL RISK RATIO LDL/HDL (test cod e = 2238) 2.19 RATIO CBC W/AUTO [id number] 00:00:00* Test Item Value Reference Range Interpretation Comme nts WBC (test code = 1001) 6.6 K/UL [...] COMMENTS (test code = 1016) (NOTE) HEMOGLOBIN [id number] 00:00:00* Test Item Value Reference Range Interpretation Comme nts HEMOGLOBIN A1c (test code = 86965) TEST NOT PERFORMED % Jacobo Jalloh AustinHEMOGLOBIN [id number] 00:00:00* Test Item Value Reference Range Interpretation Comme nts HEMOGLOBIN A1c (test code = 66707) TEST NOT PERFORMED % THYROID II PROFILE (T3U, T4, T7, TSH)2016-08-25 00:00:00* Test Item Value Reference Range Interpretation Comme nts T3 UPTAKE (test code = 2817) 27.1 % T4 (THYROXINE) (test code = 2819) 4.2 UG/DL CALCULATED T7 (FTI) (test co de = 2820) 1.14 TSH (test code = 2821) 4.4 UIU/ML COMPREHENSIVE METABOLIC [id number] 00:00:00* Test Item Value Reference Range Interpretation Comme nts GLUCOSE (test code = 2217) 98 MG/DL BUN (test code = 2208) 11 MG/DL CREATININE (test code = 2214) 0.65 MG/DL eGFR AMER. (test cod e = 75757) 135 ML/MIN/1.73 eGFR NON- AMER. (test code = 62544) 117 ML/MIN/1.73 CALC BUN/CREAT (test code = 2235) 17 RATIO SODIUM (test code = 2231) 138 MEQ/L POTASSIUM (test code = 2228) 3.8 MEQ/L CHLORIDE (test code = 2215) 102 MEQ/L CARBON DIOXIDE (test code = 2206) 24 MEQ/L CALCIUM (test code = 2209) 8.4 MG/DL PROTEIN, TOTAL (test code = 2229) 7.6 G/DL ALBUMIN (test code = 2201) 4.2 G/DL CALC GLOBULIN (test code = 2240) 3.4 G/DL CALC A/G RATIO (test code = 2234) 1.2 RATIO BILIRUBIN, TOTAL (test code = 2207) 0.4 MG/DL ALKALINE PHOSPHATASE (test code = 2204) 68 U/L AST (test code = 2218) 19 U/L ALT (test code = 2219) 13 U/L LIPID [id number] 00:00:00* Test Item Value Reference Range Interpretation Comme nts CHOLESTEROL (test code = 2210) 148 MG/DL TRIGLYCERIDES (test code = 2232) 103 MG/DL HDL CHOLESTEROL (test code = 2220) 40 MG/DL CALC LDL CHOL (test code = 2237) 87 MG/DL RISK RATIO LDL/HDL (test cod e = 2238) 2.19 RATIO
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
[2024-09-26 16:54] VITALS: TEMP 98.4
[2024-09-26 17:03] VITALS: BP 118/84; O2SAT 99
== END 2024-09-26 16:41 | disposition home or self-care (01) ==
LOC: ER 15:34
DX: T24.111A Burn of first degree of right thigh, initial encounter (principal); E03.9 Hypothyroidism, unspecified; E11.9 Type 2 diabetes mellitus without complications; D64.9 Anemia, unspecified
CPT/HCPCS: 99283

== ENCOUNTER 2024-11-03 12:11 | Emergency (ER) | payer OTHER, SELFPAY ==
--- OUTSIDE RECORDS SUMMARY | 2024-11-03 12:20 | XMS REPORT | Continuity of Care Document ---
Author Name Unknown Address [address] [facility] [address] [place], [place] [id number] [place] [address] thconnect Address [address] [facility] 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 Role Phone Rinku Das Primary Care Physician [phone] HERMELINDO QUICK Attending Clinician Unavailable DARCY MCGEE Attending Clinician Unavailable DEENA MILAN Attending Clinician Unavailable MD EVERETTE Attending Clinician Unavailab CAS Bruce Attending Clinician Unavailable LEI CURIEL Attending Clinician Unavailable YOSHI WARD Attending Clinician Unavailable LAB90 Attending Clinician Unavailable BETY MARTINEZ Attending Clinician Unava ilNANCY Iverson Attending Clinician Unavailab GARRY Diego Attending Clinician Unavailab BRAYAN Ty Attending Clinician Unavailable JOSEP, [facility] Attending Clinician Unavailable CANDACE RYAN Attending Clinician Unavailable DAVID DAMICO Attending Clinician Unavailable Payers Payer Name Policy Type Policy Number Effective Date Expirati on Date Source [employer] MP [facility] [employer] 94 ON 9 [id number] 2023 00:00:00 Problems Condition Name Condition Details [...] HCC) Disease Active 4-14 00:00: 00 Meagan Iqbal - Externa l Type 2 diabetes mellitus with hyperlipid emia (multi HCC) Type 2 diabetes mellitus with hyperlipid emia (multi HCC) Disease Active 12-31 00:00: 00 Meagan Iqbal - Externa l Well adult exam Well adult exam Disease Active 12-31 00:00: 00 Meagan Iqbal - Externa l Family history of breast cancer Family history of breast cancer Disease Active 12-31 00:00: 00 Meagan Iqbal - Externa l Hypothyroi dism Hypothyroi dism Disease Active 12-31 00:00: 00 Meagan Iqbal - Externa l Hyperlipid emia Hyperlipid emia [...] 00:00:00 2024-01-01 00:00:00 Smokeless tobacco non-user Meagan Searmondaravind - External Sex 2023-11-29 21:28:26 2023-11-29 21:28:26 Female (finding) Meagan Searmondaravind - External Sex assigned at 1985 00:00:00 1985 00:00:00 F Meagan Searmondaravind - External Smoking Status Start Date Stop Date Source Never smoked tobacco Meagan armondaravind - External Medications Ordered Medication Name Filled Medication Name Start Date Stop Date Current Medication? Ordering Clinician Indication Dosage Frequency Signature (SIG) Comments Components Source Depo-Double Backer a 150 mg/mL intramuscul ar syringe 2023-10 00:00: 00 Yes mg/mL Jacobo Witt Montelukast (Singulair) 10 MG oral Tablet tablet 2023-10 00:00: 00 Yes [id number] 10mg QD Take 1 tablet (10 mg total) by mouth nightly. Meagan pizarro Cetirizine- Pseudoephed rine (ZyrTEC-D Allergy & Congestion) 5-120 MG oral Tablet 12 Hour Sustained Release 2023-10 00:00: 00 Yes [id number] 1{tbl} Q.5D Take 1 tablet by mouth 2 times daily. Meagan pizarro Sertraline HCl 25 MG oral Tablet 2023-10 00:00: 00 Yes [id number] 25mg QD Take 1 tablet (25 mg total) by mouth daily. Meagan pizarro Propranolol HCl 10 MG oral Tablet 2023-10 00:00: 00 Yes [id number] 10mg Q.[id number] 3D Take 1 tablet (10 mg total) by mouth 3 times daily as needed. Meagan pizarro hydrOXYzine HCl 25 MG oral Tablet 2023-10 00:00: 00 Yes [id number] 25mg Q.[id number] 3D Take 1 tablet (25 mg total) by mouth 3 times daily as needed for anxiety. Meagan pizarro Cetirizine (ZYRTEC) 10 MG oral Tablet 2023-10 0 00:00: 00 Yes 10mg QD Take 1 tablet (10 mg total) by mouth daily. Meagan pizarro Trulicity 3 MG/0.5ML subcutaneou s Solution Pen-injecto r 2023-10 00:00: 00 Yes [id number] 3mg Q1W Inject 3 mg into the skin once a week. Meagan pizarro FLUTICASONE PROPIONATE, NASAL, 50 MCG/ACT nasal Suspension 2023-10 00:00: 00 Yes [id number] 50ug QD Use 1 spray (50 mcg total) in each nostril daily. Meagan pizarro Trulicity 3 MG/0.5ML subcutaneou s Solution Pen-injecto r 2023-10 00:00: 00 Yes [id number] 3mg Q1W Inject 3 mg into the skin once a week. Meagan pizarro Cetirizine HCl (ZyrTEC Allergy) 10 MG oral Capsule 2023-10 00:00: 00 08-19 00:00 :00 No [id number] 10mg QD Take 1 capsule (10 mg total) by mouth daily. Meagan pizarro methylPREDN ISolone 4 MG oral Tablet Therapy Pack 2023-10 00:00: 00 08-05 00:00 :00 No [id number] 1{tina} Take 1 tina by mouth See Admin Instructio ns Use as directed. Meagan pizarro Azithromyci n 250 MG oral Tablet 2023-1016 00:00: 00 07-26 00:00 :00 No [id number] Take 2 tablets by mouth on day [...] PROPIONATE, NASAL, 50 MCG/ACT nasal Suspension 2023-10 0- 00:00: 00 07-24 00:00 :00 No 100ug [...] -26 00:00: 00 07-24 00:00 :00 No [id number] 1{tbl} Q.5D Take 1 tablet by mouth 2 times daily. Meagan pizarro Pseudoeph-B romphen-DM 30-2-10 MG/5ML oral Syrup -23 00:00: 07-24 00:00 :00 No [id number] 10mL Q.25D Take 10 mL by mouth 4 times daily as needed. Meagan pizarro Benzocaine- Menthol (Cepacol Sore Throat Max Numb) 15-4 MG mouth/throa t Lozenge 07-01 00:00: 00 07-07 04:59 :00 No [id number] 1{lozen ge} Place 1 lozenge in the mouth or throat 6 times daily for 5 days. Meagan pizarro Depo-Double Backer a 150 mg/mL intramuscul ar syringe 06-10 [...] 06-03 00:00: 00 07-04 00:00 :00 No [id number] 3 500mg QD Take 1 tablet (500 mg total) by mouth daily (with breakfast) . Meagan pizarro Omeprazole 20 MG oral Delayed Release Capsule 04-29 00:00: 00 Yes [id number] 20mg QD Take 1 capsule (20 mg total) by mouth daily. Meagan pizarro Trulicity 1.5 MG/0.5ML subcutaneou s Solution Pen-injecto r 04-29 00:00: 00 07-26 00:00 :00 No [id number] 3 1.5mg Q1W Inject 1.5 mg into the skin once a week. Meagan pizarro Metformin HCl ER, OSM, 500 MG oral TABLET SR 24 HR 04-08 00:00: 00 Yes [id number] 3 500mg QD Take 1 tablet (500 mg total) by mouth daily (with breakfast) . Meagan pizarro Metformin HCl ER, OSM, 500 MG oral TABLET SR 24 HR 03-18 00:00: 00 Yes [id number] 3 500mg Take 1 tablet (500 mg total) by mouth daily (with breakfast) . Meagan pizarro Trulicity 0.75 MG/0.5ML subcutaneou s Solution Pen-injecto r 03-18 00:00: 00 04-29 00:00 :00 No [id number] 3 .75mg Q1W Inject 0.75 mg into the skin once a week. Meagan pizarro triamcinmalina ne acetonide 0.1 % topical cream 03-13 00:00: 00 Yes 1% Jacobo F Eduar hydroxyzine HCl 25 mg tablet 03-13 00:00: 00 Yes 1mg Jacobo F Eduar Depo-Double Backer a 150 mg/mL intramuscul ar syringe 03-13 [...] 03-11 00:00: 00 03-18 00:00 :00 No [id number] 2{tina} Take 2 paks by mouth See [...] 01-29 00:00: 00 03-18 00:00 :00 No [id number] 10mL Q.25D Take 10 mL by mouth 4 times daily as needed. Meagan pizarro predniSONE (DELTASONE) 20 MG oral tablet 01-29 00:00: 00 02-04 04:59 :00 No [id number] 20mg Take 1 tablet (20 mg total) by mouth daily for 5 days. Meagan pizarro Albuterol HFA 108 (90 Base) MCG/ACT IN AERS 01-28 00:00: 00 03-18 00:00 :00 No 2{puff} Inhale 2 puffs into the lungs 4 times daily. Meagan pizarro busPIRone HCl 30 MG oral Tablet 12-31 00:00: 00 03-18 00:00 :00 No [id number] 30mg Take 1 tablet (30 mg total) by mouth daily. Meagan pizarro Levothyroxi ne Sodium 50 MCG oral Tablet 12-31 00:00: 00 03-18 00:00 :00 No [id number] 50ug Take 1 tablet (50 mcg total) by mouth daily. Meagan pizarro Metformin HCl 1000 MG oral Tablet 12-31 00:00: 00 03-18 00:00 :00 No [id number] 1000mg Take 1 tablet (1,000 mg total) by mouth in the morning and 1 tablet (1,000 mg total) in the evening. Take with meals. Meagan pizarro Pioglitazon e HCl 45 MG oral Tablet 12-31 00:00: 00 03-18 00:00 :00 No [id number] 45mg Take 1 tablet (45 mg total) by mouth daily Please take with food. Meagan Seybold - Externa l Depo-Double Backer a 150 mg/mL intramuscul ar suspension 14 00:00: 00 Yes mg/mL Jacobo Witt BUSPIRONE 30MG 12-06 00:00: 00 Yes Jacobo Witt INJECT 1 ML INTRAMUSCUL MARK ONCE EVERY 3 MONTHS. 2022-10 00:00: 00 Yes 150 Jacobo Witt DEPO-FRESH WORK WRAPPER LAYER A 150 MG/ML SYRI 2022-10 00:00: 00 [...] 2022-10 00:00: 00 12-25 00:00 :00 No [id number] Jacobo Witt APPLY SPARINGLY IN EYE 4 TIMES A DAY. 2022-10 00:00: 00 12-25 00:00 :00 No 5 Jacobo Witt APPLY HALF AN INCH OF OINTMENT EVERY 3 HOURS TO EVERY 4 HOURS INTO AFFECTED EYES 2022-10 00:00: 00 Yes Jacobo Witt APPLY 1/2 INCH OF OINTMENT EVERY 3-4 HOURS INTO AFFECTED EYE(S). 2022-10 00:00: 00 12-25 00:00 :00 No [id number] Jacobo Witt TAKE 10 ML EVERY 4-6 HOURS NEEDED 2022-10 1-24 00:00: 00 12-25 00:00 :00 No [id number] Jacobo Witt INJECT 1 ML INTRAMUSCUL MARK ONCE EVERY 3 MONTHS. 2022-10 0-12 00:00: 00 12-25 00:00 :00 No 150 Jacobo Witt Liraglutide (Victoza) 18 MG/3ML subcutaneou s Solution Pen-injecto r 907 00:00: 00 03-18 00:00 :00 No [id number] Meagan pizarro TAKE 1 CAPSULE ONCE A DAY 904 00:00: 00 12-25 00:00 :00 No 40 Jacobo Witt 1 TABLET PO TID -15 00:00: 00 Yes 10 Jacobo Witt Atorvastati n Calcium 10 MG oral Tablet 05-23 00:00: 00 03-18 00:00 :00 No [id number] 10mg 1 tablet (10 mg total). Meagan pizarro Pioglitazon e HCl 45 MG oral Tablet 8-15 00:00: 00 12-31 00:00 :00 No 45mg Take 1 tablet (45 mg total) by mouth daily. Meagan pizarro TAKE 1 TABLET EVERY MORNING. 8 00:00: 00 12-25 00:00 :00 No 45 Jacobo Witt TAKE ONE (1) TABLET(S) BY MOUTH ONCE A DAY IN THE MORNING. 8-15 00:00: 00 12-25 00:00 :00 No 50 Jacobo Witt TAKE 1 TABLET TWICE DAILY. 8-15 00:00: 00 12-25 00:00 :00 No 1000 Jacobo Witt TAKE ONE (1) TABLET(S) BY MOUTH EVERY TWELVE HOURS NEEDED. 8- 00:00: 00 Yes Jacobo Witt Depo-Double Backer a 150 MG/ML intramuscul ar Suspension Prefilled Syringe 7-26 00:00: 00 03-18 00:00 :00 No [id number] Meagan Seybold - Externa l INJECT 1 ML INTRAMUSCUL MARK ONCE EVERY 3 MONTHS. 05-03 00:00: 00 12-25 00:00 :00 No 150 Jacobo Witt SWISH AND SWALLOW 5ML 4 TIMES DAILY. 05-02 00:00: 00 12-25 00:00 :00 No [id number] Jacobo Witt TAKE 1 TABLET TWICE DAILY. 05-02 00:00: 00 12-25 00:00 :00 No 1000 Jacobo Witt TAKE DIRECTED. 02-07 00:00: 00 12-25 00:00 :00 No 4 Jacobo Witt DEPO-FRESH WORK WRAPPER LAYER A 150 MG/ML SYRI 11-02 00:00: 00 Yes Jacobo Witt INJECT 1 ML INTRAMUSCUL MARK ONCE EVERY 3 MONTHS. 11-02 00:00: 00 12-25 00:00 :00 No 150 Jacobo Witt INJECT 1 ML INTRAMUSCUL MARK ONCE EVERY 3 MONTHS. 2021-10 00:00: 00 No 150 DEPO-FRESH WORK WRAPPER LAYER A 150 MG/ML SYRI 2021-10 00:00: 00 No DEPO-FRESH WORK WRAPPER LAYER A 150 MG/ML SYRI 2021-10 00:00: 00 [...] Unknown 8- 00:00: 00 No Dose Unknown 8-12 00:00: 00 No Dose Unknown 8- 00:00: 00 No Dose Unknown 05-20 00:00: 00 Yes Jacobo Witt TAKE 1 [...] 0 05-17 00:00: 00 No Dose Unknown 2021-0 05-17 00:00: 00 No APPLY ON THE SKIN THREE TIMES A DAY FOR 5 DAYS. 0 05-17 00:00: 00 No Dose Unknown 2021-0 05-17 00:00: 00 No Dose Unknown 0 05-17 00:00: 00 No APPLY ON THE SKIN THREE TIMES A DAY FOR 5 DAYS. 0 05-17 00:00: 00 No Dose Unknown 2021-0 05-17 00:00: 00 No Dose Unknown 0 05-17:00: 00 No APPLY ON THE SKIN THREE TIMES A DAY FOR 5 DAYS. 05-17 00:00: 00 No Dose Unknown 05-17 00:00: 00 No Dose Unknown 05-17 00:00: 00 No APPLY ON THE SKIN THREE TIMES A DAY FOR 5 DAYS. 05-17:00: 00 No Dose Unknown 05-17 00:00: 00 No Dose Unknown 05-17 00:00: 00 No APPLY ON THE SKIN THREE TIMES A DAY FOR 5 DAYS. 05-17 00:00: 00 No Dose Unknown 05-17 00:00: 00 Yes Jacobo F Eduar Dose Unknown 05-17 00:00: 00 Yes Jacobo Shubham Eduar APPLY ON THE SKIN THREE TIMES A [...] 5 DAYS. 05-10 00:00: 00 Yes Jacobo Witt TAKE 10 ML(S) BY MOUTH EVERY FOUR [...] No mupirocin calcium 2 % topical cream 2-0 03-04 00:00: 00 Yes 1% Jacobo Witt [...] Dose Unknown 2022-0 3-04 00:00: 00 Yes Jacobo Witt Tamiflu 75 mg capsule 2021-0 3-03 00:00: 00 No 1mg Bromfed DM 2 mg-30 mg-10 mg/5 mL oral syrup 2-0 3-03 00:00: 00 No 10mg/5 mL Tamiflu 75 mg capsule 2-0 3-03 00:00: [...] 10mg/5 mL Tamiflu 75 mg capsule 2022-0 3- 00:00: 00 No 1mg Bromfed DM [...] 10mg/5 mL Jacobo Witt Dose Unknown 2022-0 228 00:00: 00 No [...] Unknown 2022-0 2-28 00:00: 00 Yes Jacobo Wtit Dose Unknown 2022-0 2-28 00:00: 00 Yes [...] suspension 06-10 00:00: 00 Yes 1unit/m L (30) Jacobo Witt prednisone 5 mg tablet 06-01 00:00: 00 No 1mg prednisone 5 mg tablet 0 8 00:00: 00 No 1mg prednisone 5 mg tablet 0 8 00:00: 00 No 1mg prednisone 5 mg tablet 0 8 00:00: 00 No 1mg prednisone 5 mg tablet 0 8 00:00: 00 No 1mg prednisone 5 mg tablet 0 8 00:00: 00 No 1mg prednisone 5 mg tablet 0 8 00:00: 00 Yes 1mg Jacobo Witt Zofran 4 mg tablet 0 05-03 00:00: 00 No 1mg Zofran 4 mg tablet 0 7- 00:00: 00 No 1mg Zofran 4 mg tablet 0 7- 00:00: 00 No 1mg Zofran 4 mg tablet 0 7 00:00: 00 No 1mg Zofran 4 mg tablet 0 7 00:00: 00 No 1mg Zofran 4 mg tablet 0 7- 00:00: 00 No 1mg Zofran 4 mg tablet 0 7 00:00: 00 Yes 1mg Jacobo Witt medroxyprog esterone 150 mg/mL intramuscul ar suspension 0 6- 00:00: 00 No 1mg/mL medroxyprog esterone 150 mg/mL intramuscul ar suspension 0 6- 00:00: 00 No 1mg/mL medroxyprog esterone 150 mg/mL intramuscul ar suspension 0 6- 00:00: 00 No 1mg/mL medroxyprog esterone 150 mg/mL intramuscul ar suspension 0 6-11 00:00: 00 No 1mg/mL medroxyprog esterone 150 mg/mL intramuscul ar suspension 0 6-11 00:00: 00 No 1mg/mL medroxyprog esterone 150 mg/mL intramuscul ar suspension 0 6-11 00:00: 00 No 1mg/mL medroxyprog esterone 150 mg/mL intramuscul ar suspension 0 6-11 00:00: 00 Yes 1mg/mL Jacobo Jalloh Eduar Dose Unknown 2019-0 4-17 00:00: 00 No [...] Unknown 2019-0 4-17 00:00: 00 Yes Jacobo Witt Dose Unknown 2019-0 4-17 00:00: 00 Yes Jacobo Shubham Eduar Cortisporin -TC 3.3 mg-3 mg-10 mg-0.5 mg/mL ear drops,suspe nsion 2019-0 2-06 00:00: 00 No 4mg/mL Bromfed DM 2 mg-30 mg-10 mg/5 mL oral syrup 2019-0 2-06 00:00: 00 No 10mg/5 mL Cortisporin -TC 3.3 mg-3 mg-10 mg-0.5 mg/mL ear drops,suspe nsion 2019-0 2-06 00:00: 00 No 4mg/mL Bromfed DM 2 mg-30 mg-10 mg/5 mL oral syrup 2019-0 2-06 00:00: 00 No 10mg/5 mL Cortisporin -TC 3.3 mg-3 mg-10 mg-0.5 mg/mL ear drops,suspe nsion 2019-0 2- 00:00: 00 No 4mg/mL Bromfed DM 2 mg-30 mg-10 mg/5 mL oral syrup 2019-0 2- 00:00: 00 No 10mg/5 mL Cortisporin -TC 3.3 mg-3 mg-10 mg-0.5 mg/mL ear drops,suspe nsion 2019-0 2- 00:00: 00 No 4mg/mL Bromfed DM [...] mL oral syrup 0 2- 00:00: 00 Yes 10mg/5 mL Jacobo Witt [...] mg tablet 06-26 00:00: 00 Yes 1mg Jacobonikko Witt amoxicillin 875 mg tablet 11-23 00:00: [...] tablet 11-23 00:00: 00 Yes 1mg Jacobo Shubham Witt liothyronin e 5 mcg tablet 06-20 [...] 06-20 00:00: 00 Yes 1mcg Jacobo Witt liothyronin e 5 mcg tablet 06-20 00:00: 00 Yes 1mcg Jacobo Shubham Eduar ferrous sulfate 325 mg (65 mg iron) [...] tablet 01-26 00:00: 00 Yes 1mcg Jacobo Witt Immunizations Ordered Immunization Name Filled Immunization Name Date Status Comments Source Influenza, injectable, Madin [place] Canine Kidney, preservative-free, quadrivalent Influenza, injectable, Madin [place] Canine Kidney, preservative-free, quadrivalent 2023-09-14 00:00:00 Completed Jacobo Witt Moderna COVID-19 Vaccine 2021-06-24 00:00:00 Completed Moderna COVID-19 Vaccine 2021-06-24 00:00:00 Completed Moderna COVID-19 Vaccine 2021-06-24 00:00:00 Completed Moderna COVID-19 Vaccine 2021-06-24 00:00:00 Completed Moderna COVID-19 Vaccine 2021-06-24 00:00:00 Completed Moderna COVID-19 Vaccine 2021-06-24 00:00:00 Completed Moderna COVID-19 Vaccine Moderna COVID-19 Vaccine 2021-06-24 00:00:00 Completed Jacobonikko Witt Tdap 2018-11-23 00:00:00 Completed Tdap 2018-11-23 00:00:00 Completed Tdap 2018-11-23 00:00:00 Completed Tdap 2018-11-23 00:00:00 Completed Tdap 2018-11-23 00:00:00 Completed Tdap 2018-11-23 00:00:00 Completed Tdap Tdap 2018-11-23 00:00:00 Completed Jacobo Witt Influenza, Injectable, Mdck, Preservative Free, Quadrivalent Unknown [facility] Moderna (Spikevax), Mrna-lnp, Leonard Protein, Pf Unknown Completed [facility] - External Tdap- (Boostrix, Adacel) Unknown Completed [facility] - External Influenza, Injectable, Mdck, Preservative Free, Quadrivalent Unknown Completed [facility] - External Covid-19 Vaccine Moderna (Spikevax), Mrna-lnp, Leonard Protein, Pf Unknown Completed Meagan [facility] - External Tdap- (Boostrix, Adacel) [facility], Injectable, Mdck, Preservative Free, Quadrivalent Unknown Completed Meagan Seybold - External Covid-19 Vaccine Moderna (Spikevax), Mrna-lnp, Leonard Protein, Pf Unknown Completed [facility] - External Tdap- (Boostrix, Adacel) Unknown [facility] Influenza, Injectable, Mdck, Preservative Free, Quadrivalent Unknown [facility] Cov[facility]-19 Vaccine Moderna (Spikevax), Mrna-lnp, Leonard Protein, Pf Unknown Completed [facility] - External Tdap- (Boostrix, Adacel) Unknown Completed [...] Mrna-lnp, Leonard Protein, Pf Unknown Completed Meagan Novaybold - External Tdap- (Boostrix, Adacel) Unknown Completed [facility] - External Vital Signs Vital Name Observation Time Observation Value Comments S kandice Systolic blood pressure 2024-07-26 15:56:00 124 mm[Hg] Meagan Seybo ld - External Diastolic blood pressure 2024-07-26 15:56:00 78 mm[Hg] Meagan Novaybo ld - External Heart rate 2024-07-26 15:56:00 89 /min Jeffreyse y Seybold - External Body temperature 2024-07-26 15:56:00 36.67 Jael Meagan Novaybold - External Respiratory rate 2024-07-26 15:56:00 19 [...] blood pressure 2024-07-24 18:42:00 120 mm[Hg] Meagan Novaybo ld - External Diastolic blood pressure 2024-07-24 18:42:00 72 mm[Hg] Meagan Novaybo ld - External Heart rate 2024-07-24 18:42:00 [...] External Heart rate 2024-04-29 15:08:00 78 /min Kelse y Seybold - External Body temperature 2024-04-29 [...] External Heart rate 2024-03-18 16:19:00 77 /min Kelse y Seybold - External Systolic blood pressure 2024-01-01 19:32:00 128 mm[Hg] Meagan Seybo ld - External Diastolic blood pressure 2024-01-01 19:32:00 74 mm[Hg] Meagan Seybo ld - External Heart rate 2024-01-01 19:32:00 80 /min Kelse y Seybold - External Body temperature 2024-01-01 19:32:00 36.72 Jael Meagan Seybold - External Respiratory rate 2024-01-01 19:32:00 16 /min Meagan Seybold - External Body height 2024-01-01 19:32:00 162.6 [...] Weight Measured 2024-09-02 08:52:00 260.20 pounds Jacobo F Eduar Height Measured 2024-09-02 08:52:00 66.00 inches Jacobo [...] Height Measured 2023-06-12 08:25:00 66.00 inches Jacobo F Eduar Body Temperature 2023-06-12 08:25:00 97.40 degrees Jacobo F Eduar Heart Rate 2023-06-12 08:25:00 71.00 /min Chayo en F Eduar Respiratory Rate 2023-06-12 08:25:00 Jacobo F Eduar BP Systolic 2023-05-23 14:38:00 122 mm[Hg] Step hen F Eduar BP Diastolic 2023-05-23 14:38:00 86 mm[Hg] Tim phen F Eduar Weight Measured 2023-05-23 14:38:00 266.00 pounds Jacobo Witt Height Measured 2023-05-23 14:38:00 66.00 inches Jacobo Witt Body Temperature 2023-05-23 14:38:00 98.00 degrees Jacobo Shubham Witt Heart Rate 2023-05-23 14:38:00 89.00 /min Chayo en F Eduar Respiratory Rate 2023-05-23 14:38:00 18.00 /min Jacobo F Eduar BP Systolic 2022-10-31 16:15:00 120 mm[Hg] BP [...] Goal Plan of Care Note [code = 73676-3] Goal Plan of Care Note [code = 93571-3] Goal Plan of Care Note [code = 62285-5] Goal Plan of Care Note [code = 47045-2] Goal Plan of Care Note [code = 37788-2] Goal Plan of Care Note [code = 11545-1] Goal Plan of Care Note [code = 13667-0] Goal Plan of Care Note [code = 46745-5] Goal Plan of Care Note [code = 83337-3] Goal Plan of Care Note [code = 33898-6] Goal Plan of Care Note [code = 82591-5] Goal Plan of Care Note [code = 80564-7] Goal Plan of Care Note [code = 35799-6] Goal Plan of Care Note [code = 90077-1] Goal Plan of Care Note [code = 88846-0] Goal Plan of Care Note [code = 36414-6] Goal Plan of Care Note [code = 22630-5] Goal Plan of Care Note [code = 57879-9] Goal Plan of Care Note [code = 60786-4] Goal Plan of Care Note [code = 70630-9] Goal Plan of Care Note [code = 90031-6] Goal Plan of Care Note [code = 35624-3] Goal Plan of Care Note [code = 45229-8] Goal Plan of Care Note [code = 71679-3] Goal Plan of Care Note [code = 05941-8] Goal Plan of Care Note [code = 48919-6] Goal Plan of Care Note [code = 85163-3] Goal Plan of Care Note [code = 11852-9] Goal Plan of Care Note [code = 80311-4] Goal Plan of Care Note [code = 62256-6] Goal Plan of Care Note [code = 99010-5] Goal Plan of Care Note [code = 87456-2] Goal Plan of Care Note [code = 82573-9] Goal Plan of Care Note [code = 13325-9] Goal Plan of Care Note [code = 15038-9] Goal Plan of Care Note [code = 18387-8] Goal Plan of Care Note [code = 73638-7] Goal Plan of Care Note [code = 50500-6] Goal Plan of Care Note [code = 61802-5] Goal Plan of Care Note [code = 31916-5] Goal Plan of Care Note [code = 34881-9] Goal Plan of Care Note [code = 95506-0] Goal Plan of Care Note [code = 62716-2] Goal Plan of Care Note [code = 29020-7] Goal Plan of Care Note [code = 51749-0] Goal Plan of Care Note [code = 16038-9] Goal Plan of Care Note [code = 52126-0] Goal Plan of Care Note [code = 39716-0] Goal Plan of Care Note [code = 27146-4] Goal Plan of Care Note [code = 90933-2] Goal Plan of Care Note [code = 88791-4] Goal Plan of Care Note [code = 80989-7] Goal Plan of Care Note [code = 45776-2] Goal Plan of Care Note [code = 38954-6] Goal Plan of Care Note [code = 36025-7] Goal Plan of Care Note [code = 39817-4] Goal Plan of Care Note [code = 60999-7] Goal Plan of Care Note [code = 42255-5] Goal Plan of Care Note [code = 16833-1] Goal Plan of Care Note [code = 21728-5] Goal Plan of Care Note [code = 61249-8] Goal Plan of Care Note [code = 82087-8] Goal Plan of Care Note [code = 85377-0] Goal Plan of Care Note [code = 19108-9] Goal Plan of Care Note [code = 74314-0] Goal Plan of Care Note [code = 76701-9] Goal Plan of Care Note [code = 64952-6] Goal Plan of Care Note [code = 34627-7] Goal Plan of Care Note [code = 60538-8] Goal Plan of Care Note [code = 28083-6] Goal Plan of Care Note [code = 17054-3] Goal Plan of Care Note [code = 09219-5] Goal Plan of Care Note [code = 74170-2] Goal Plan of Care Note [code = 72872-9] Goal Plan of Care Note [code = 58667-5] Goal Plan of Care Note [code = 49231-2] Goal Plan of Care Note [code = 22237-6] Goal Plan of Care Note [code = 16836-1] Goal Plan of Care Note [code = 35200-3] Goal Plan of Care Note [code = 94721-0] Goal Plan of Care Note [code = 81524-7] Goal Plan of Care Note [code = 98534-6] Goal Plan of Care Note [code = 19390-0] Goal Plan of Care Note [code = 35027-2] Goal Plan of Care Note [code = 73592-6] Goal Plan of Care Note [code = 72938-8] Goal Plan of Care Note [code = 16934-0] Goal Plan of Care Note [code = 15362-6] Goal Plan of Care Note [code = 95802-2] Goal Plan of Care Note [code = 48573-7] Goal Plan of Care Note [code = 36582-3] Goal Plan of Care Note [code = 64857-8] Goal Plan of Care Note [code = 20211-8] Goal Plan of Care Note [code = 87214-6] Goal Plan of Care Note [code = 14071-8] Goal Plan of Care Note [code = 38796-9] Goal Plan of Care Note [code = 32383-7] Goal Plan of Care Note [code = 76673-7] Goal Plan of Care Note [code = 23749-9] Goal Plan of Care Note [code = 05444-3] Goal Plan of Care Note [code = 47503-9] Goal Plan of Care Note [code = 77006-4] Goal Plan of Care Note [code = 88025-9] Goal Plan of Care Note [code = 92745-9] Goal Plan of Care Note [code = 96054-2] Goal Plan of Care Note [code = 59872-9] Goal Plan of Care Note [code = 88621-8] Goal Plan of Care Note [code = 03396-1] Goal Plan of Care Note [code = 48898-5] Goal Plan of Care Note [code = 81880-2] Goal Plan of Care Note [code = 84242-3] Goal Plan of Care Note [code = 85574-1] Goal Plan of Care Note [code = 51866-3] Goal Plan of Care Note [code = 40625-0] Goal Plan of Care Note [code = 01385-1] Goal Plan of Care Note [code = 56763-0] Goal Plan of Care Note [code = 68203-6] Goal Plan of Care Note [code = 39509-1] Goal Plan of Care Note [code = 68618-1] Goal Plan of Care Note [code = 14475-2] Goal Plan of Care Note [code = 47587-9] Goal Plan of Care Note [code = 53859-7] Goal Plan of Care Note [code = 86750-5] Goal Plan of Care Note [code = 34927-1] Goal Plan of Care Note [code = 49724-9] Goal Plan of Care Note [code = 40349-1] Goal Plan of Care Note [code = 36419-5] Goal Plan of Care Note [code = 20489-9] Goal Plan of Care Note [code = 59366-2] Goal Plan of Care Note [code = 34150-9] Goal Plan of Care Note [code = 13192-6] Goal Plan of Care Note [code = 43967-0] Goal Plan of Care Note [code = 97197-6] Goal Plan of Care Note [code = 67943-3] Goal Plan of Care Note [code = 20146-1] Goal Plan of Care Note [code = 95685-1] Goal Plan of Care Note [code = 82639-0] Goal Plan of Care Note [code = 80087-5] Goal Plan of Care Note [code = 90846-9] Goal Plan of Care Note [code = 04052-8] Goal Plan of Care Note [code = 42050-3] Goal Plan of Care Note [code = 63717-6] Goal Plan of Care Note [code = 02785-2] Goal Plan of Care Note [code = 98332-8] Goal Plan of Care Note [code = 05000-4] Goal Plan of Care Note [code = 45578-2] Goal Plan of Care Note [code = 44482-2] Goal Plan of Care Note [code = 57075-4] Goal Plan of Care Note [code = 24166-5] Goal Plan of Care Note [code = 03107-6] Goal Plan of Care Note [code = 69710-7] Goal Plan of Care Note [code = 55932-9] Goal Plan of Care Note [code = 66383-3] Goal Plan of Care Note [code = 17567-1] Goal Plan of Care Note [code = 51342-1] Goal Plan of Care Note [code = 74659-0] Goal Plan of Care Note [code = 18019-6] Goal Plan of Care Note [code = 39958-2] Goal Plan of Care Note [code = 74031-3] Goal Plan of Care Note [code = 17262-5] Goal Plan of Care Note [code = 63626-4] Goal Plan of Care Note [code = 02881-1] Goal Plan of Care Note [code = 21706-8] Goal Plan of Care Note [code = 20144-3] Goal Plan of Care Note [code = 42011-0] Goal Plan of Care Note [code = 49958-6] Goal Plan of Care Note [code = 50983-4] Goal Plan of Care Note [code = 25136-0] Goal Plan of Care Note [code = 19610-0] Goal Plan of Care Note [code = 57055-5] Goal Plan of Care Note [code = 55845-7] Goal Plan of Care Note [code = 81862-6] Goal Plan of Care Note [code = 11512-2] Goal Plan of Care Note [code = 67679-6] Goal Plan of Care Note [code = 42205-4] Goal Plan of Care Note [code = 44261-9] Goal Plan of Care Note [code = 85584-9] Goal Plan of Care Note [code = 05619-6] Goal Plan of Care Note [code = 52815-1] Goal Plan of Care Note [code = 41826-9] Goal Plan of Care Note [code = 46506-9] Goal Plan of Care Note [code = 49668-6] Goal Plan of Care Note [code = 90078-3] Goal Plan of Care Note [code = 16008-0] Goal Plan of Care Note [code = 83035-7] Goal Plan of Care Note [code = 90862-0] Goal Plan of Care Note [code = 50820-2] Goal Plan of Care Note [code = 45946-4] Goal Plan of Care Note [code = 14110-5] Goal Plan of Care Note [code = 82738-1] Goal Plan of Care Note [code = 77002-8] Goal Plan of Care Note [code = 72456-5] Goal Plan of Care Note [code = 39250-8] Goal Plan of Care Note [code = 37655-6] Goal Plan of Care Note [code = 23171-0] Goal Plan of Care Note [code = 39610-3] Goal Plan of Care Note [code = 00084-2] Goal Plan of Care Note [code = 08401-8] Goal Plan of Care Note [code = 12324-6] Goal Plan of Care Note [code = 73812-4] Goal Plan of Care Note [code = 54314-3] Goal Plan of Care Note [code = 92552-0] Goal Plan of Care Note [code = 86852-7] Goal Plan of Care Note [code = 05638-5] Goal Plan of Care Note [code = 85673-5] Goal Plan of Care Note [code = 49687-9] Goal Plan of Care Note [code = 52262-8] Goal Plan of Care Note [code = 04502-6] Goal Plan of Care Note [code = 51748-6] Goal Plan of Care Note [code = 95866-5] Goal Plan of Care Note [code = 29362-0] Goal Plan of Care Note [code = 42466-1] Goal Plan of Care Note [code = 77621-3] Goal Plan of Care Note [code = 23116-1] Goal Plan of Care Note [code = 13773-1] Goal Plan of Care Note [code = 18533-8] Goal Plan of Care Note [code = 86955-5] Goal Plan of Care Note [code = 01805-2] Goal Plan of Care Note [code = 17531-7] Goal Plan of Care Note [code = 15499-2] Goal Plan of Care Note [code = 34602-6] Goal Plan of Care Note [code = 79547-2] Goal Plan of Care Note [code = 99810-0] Goal Plan of Care Note [code = 14133-1] Goal Plan of Care Note [code = 00361-0] Goal Plan of Care Note [code = 76612-4] Goal Plan of Care Note [code = 92375-1] Encounters Start Date/Time End Date/Time Encounter Type Admission Type Attending [facility] Care Facility Care Department Encounter ID Source 2025-02-04 15:40:00 2025-02-04 15:40:00 Outpatient HEREMLINDO QUICK [id number] [facility] 2024-10-25 14:30:00 2024-10-25 14:30:00 Outpatient DARCY MCGEE MEAGAN JOHNSON [id number] [facility] 2024-10-15 00:00:00 2024-10-15 00:00:00 Outpatient DEENA MILAN [id number] [facility] 2024-10-04 00:00:00 2024-10-04 00:00:00 Outpatient MEAGAN JOHNSON [id number] [facility] 2024-10-04 00:00:00 2024-10-04 00:00:00 Outpatient MD MEAGAN HARDEN [id number] [facility] 2024-09-30 11:30:00 2024-09-30 11:30:00 Outpatient DEE BRADENHEL MEAGAN JOHNSON [id number] [facility] 2024-09-20 00:00:00 2024-09-20 00:00:00 Outpatient MD [facility]ARD[facility] [id number] [facility] 2024-09-12 00:00:00 2024-09-12 00:00:00 Outpatient DARCY MCGEE MEAGAN JOHNSON [id number] [facility] 2024-09-11 00:00:00 2024-09-11 00:00:00 Outpatient DARCY MCGEE MEAGAN JOHNSON [id number] [facility] 2024-09-02 11:15:00 2024-09-02 11:15:00 Outpatient DARCY MCGEE MEAGAN JOHNSON [id number] [facility] 2024-09-02 08:49:50 2024-09-02 08:49:50 Outpatient SFA SFA [id number] Jacobo Jalloh Eduar 2024-09-02 00:00:00 2024-09-02 00:00:00 Outpatient Visit SFA [id number] Jacobo Jalloh Eduar 2024-08-19 16:30:00 2024-08-19 16:30:00 Outpatient DEENA MILAN [id number] [facility] 2024-08-07 16:00:00 2024-08-07 16:00:00 Outpatient LEI CURIEL MEAGAN JOHNSON [id number] [facility] 2024-08-05 15:45:00 2024-08-05 15:45:00 Outpatient YOSHI WARD MEAGAN JOHNSON [id number] [facility] 2024-07-26 10:45:00 2024-07-26 10:45:00 Outpatient TYRON MCGEEAND MEAGAN JOHNSON [id number] [facility] 2024-07-24 14:20:00 2024-07-24 14:20:00 Outpatient LABAnthony MEAGAN JOHNSON [id number] [facility] 2024-07-24 13:45:00 2024-07-24 13:45:00 Outpatient BETY MARTINEZ [id number] [facility] 2024-07-05 00:00:00 2024-07-05 00:00:00 Outpatient DARCY MCGEE [id number] [facility] 2024-07-05 00:00:00 2024-07-05 00:00:00 Outpatient NANCY FERGUSON [id number] [facility] 2024-07-04 16:30:00 2024-07-04 16:30:00 Outpatient LABAnthony MEAGAN JOHNSON [id number] [facility] 2024-07-04 15:45:00 2024-07-04 15:45:00 Outpatient BETY MARTINEZ [id number] [facility] 2024-07-03 00:00:00 2024-07-03 00:00:00 Outpatient DARCY MCGEE [id number] [facility] 2024-07-01 11:00:00 2024-07-01 11:00:00 Outpatient GARRY DAMON [id number] [facility] 2024-06-28 00:00:00 2024-06-28 00:00:00 Outpatient NANCY FERGUSON [id number] [facility] 2024-06-25 00:00:00 2024-06-25 00:00:00 Outpatient NANCY FERGUSON MEAGAN JOHNSON [id number] [facility] ybaravind 2024-06-21 00:00:00 2024-06-21 00:00:00 Outpatient MD MEAGAN HARDEN [id number] [facility] 2024-06-12 15:00:00 2024-06-12 15:00:00 Outpatient DARCY MCGEE [id number] [facility] 2024-06-10 08:59:22 2024-06-10 08:59:22 Outpatient SFA SFA 09 Jacobo Witt 2024-06-10 00:00:00 2024-06-10 00:00:00 Outpatient Visit [facility] [id number] Jacobo Witt 2024-05-31 00:00:00 2024-05-31 00:00:00 Outpatient DARCY MCGEE [id number] [facility] 2024-05-20 15:40:00 2024-05-20 15:40:00 Outpatient BRAYAN FONTENOT [id number] [facility] 2024-05-13 15:00:00 2024-05-13 15:00:00 Outpatient MEAGAN JOHNSON [id number] [facility] 2024-05-13 14:00:00 2024-05-13 14:00:00 Outpatient MEAGAN JOHNSON [id number] [facility] 2024-05-07 00:00:00 2024-05-07 00:00:00 Outpatient MEAGAN JOHNSON [id number] [facility] 2024-05-07 00:00:00 2024-05-07 00:00:00 Outpatient [facility] MEAGAN JOHNSON [id number] [facility] Seybold 2024-05-02 14:40:00 2024-05-02 14:40:00 Outpatient MEAGAN JOHNSON [id number] [facility] 2024-05-02 13:00:00 2024-05-02 13:00:00 Outpatient MEAGAN JOHNSON [id number] [facility] 2024-04-29 10:00:00 2024-04-29 10:00:00 Outpatient PREZADARCY Turcios MEAGAN [id number] [facility] Nova[facility] 2024-04-02 09:00:00 2024-04-02 09:00:00 Outpatient NANCY FERGUSON [id number] [facility] 2024-03-22 00:00:00 2024-03-22 00:00:00 Outpatient PREZADARCY Turcios MEAGAN [id number] [facility] 2024-03-20 10:00:00 2024-03-20 10:00:00 Outpatient POBRAYAN MEAGAN [id number] [facility] 2024-03-19 00:00:00 2024-03-19 00:00:00 Outpatient PREZASDARCY MEAGAN [id number] [facility] 2024-03-18 13:00:00 2024-03-18 13:00:00 Outpatient LABAnthony JOHNSON [facility] [id number] [facility] 2024-03-18 11:30:00 2024-03-18 11:30:00 Outpatient PREZASDARCY MEAGAN [id number] [facility] 2024-03-13 09:16:25 2024-03-13 09:16:25 Outpatient SFA [facility] [id number] Jacobo Jalloh Eduar 2024-03-13 00:00:00 2024-03-13 00:00:00 Outpatient Visit [facility] [id number] Jacobo Witt 2024-03-11 09:15:00 2024-03-11 09:15:00 Outpatient CANDACE RYAN [id number] [facility] 2024-03-11 00:00:00 2024-03-11 00:00:00 Outpatient DARCY MCGEE MEAGAN JOHNSON [id number] [facility] 2024-02-15 00:00:00 2024-02-15 00:00:00 Outpatient NANCY FERGUSON [id number] [facility] 2024-02-15 00:00:00 2024-02-15 00:00:00 Outpatient NANCY FERGUSON MEAGAN JOHNSON [id number] [facility] 2024-02-13 00:00:00 2024-02-13 00:00:00 Outpatient MD MEAGAN HARDEN [id number] [facility] 2024-01-30 18:30:00 2024-01-30 18:30:00 Outpatient MARGAUXDAVID SOLER MEAGAN JOHNSON [id number] [facility] 2024-01-30 18:15:00 2024-01-30 18:15:00 Outpatient MEAGAN JOHNSON [id number] [facility] 2024-01-22 00:00:00 2024-01-22 00:00:00 Outpatient SHIRA FERGUSONTHIA MEAGAN JOHNSON [id number] [facility] 2024-01-15 00:00:00 2024-01-15 00:00:00 Outpatient NANCY FERGUSON MEAGAN JOHNSON [id number] [facility] 2024-01-11 00:00:00 2024-01-11 00:00:00 Outpatient DARCY MCGEE [id number] [facility] 2024-01-09 00:00:00 2024-01-09 00:00:00 Outpatient NANCY FERGUSON MEAGAN JOHNSON [id number] [facility] 2024-01-06 00:00:00 2024-01-06 00:00:00 Outpatient NANCY FERGUSON MEAGAN OJHNSON [id number] [facility] 2024-01-05 00:00:00 2024-01-05 00:00:00 Outpatient SHIRA FERGUSONTHIA MEAGAN JOHNSON [id number] [facility] 2024-01-04 00:00:00 2024-01-04 00:00:00 Outpatient MARTY NANCY JOHNSON [id number] [facility] 2024-01-03 00:00:00 2024-01-03 00:00:00 Outpatient MD MEAGAN HARDEN [id number] [facility] 2024-01-03 00:00:00 2024-01-03 00:00:00 Outpatient NANCY FERGUSON [id number] [facility] 2024-01-01 15:15:00 2024-01-01 15:15:00 Outpatient MICHELLE JOHNSON [id number] [facility] 2024-01-01 14:30:00 2024-01-01 14:30:00 Outpatient NANCY FERGUSON [id number] [facility] 2023-12-21 08:22:55 2023-12-21 08:22:55 Outpatient SFA SFA [id number] Jacobo Witt 2023-10-03 10:04:01 2023-10-03 10:04:01 Outpatient SFA SFA 1226 Jacobo Witt 2023-09-25 11:14:39 2023-09-25 11:14:39 Outpatient SFA SFA [id number] Jacobo Witt 2023-09-14 14:15:46 2023-09-14 14:15:46 Outpatient SFA SFA [id number] Jacobo Witt 2023-09-06 14:30:20 2023-09-06 14:30:20 Outpatient SFA SFA [id number] Jacobo Witt 2023-09-01 10:37:11 2023-09-01 10:37:11 Outpatient SFA SFA [id number] Jacobo Jalloh Eduar 2023-07-20 14:03:09 2023-07-20 14:03:09 Outpatient SFA SFA [id number] Jacobo Witt 2023-06-15 15:28:12 2023-06-15 15:28:12 Outpatient SFA SFA [id number] Jacobo Witt 2023-06-12 08:11:27 2023-06-12 08:11:27 Outpatient SFA SFA [id number] Jacobo Witt 2023-05-23 14:29:41 2023-05-23 14:29:41 Outpatient SFA SFA [id number] Jacobo Witt 2023-05-16 09:01:39 2023-05-16 09:01:39 Outpatient SFA SFA [id number] Jacobo Witt 2023-05-12 13:13:38 2023-05-12 13:13:38 Outpatient SFA SFA [id number] Jacobo Witt 2023-05-03 13:03:34 2023-05-03 13:03:34 Outpatient SFA SFA [id number] Jacobo Witt 2023-05-02 13:40:38 2023-05-02 13:40:38 Outpatient SFA SFA 724 Jacobo Witt 2023-02-07 14:17:12 2023-02-07 14:17:12 Outpatient SFA SFA 050 Jacobo Witt 2022-11-02 14:59:01 2022-11-02 14:59:01 Outpatient SFA SFA 124 Jacobo Witt 2022-10-31 16:09:17 2022-10-31 16:09:17 Outpatient SFA SFA 122 Jacobo Witt 2022-10-31 00:00:00 2022-10-31 00:00:00 Outpatient Visit [id number] -[id number] 1647-11-03 14:41:35 2022-08-11 14:41:35 Outpatient SFA SFA [id number] Jacobo Witt 2022-08-11 00:00:00 2022-08-11 00:00:00 Outpatient Visit [id number]-[id number] -o3nd-fe4 [id number] u9x-110m-x [id number]-ad7a1d [id number] 2022-07-25 13:07:55 2022-07-25 13:07:55 Outpatient SFA SFA 1017 Jacobo Witt 2022-07-25 00:00:00 2022-07-25 00:00:00 Outpatient Visit [id number] [id number] -8500-db2 [id number] 500-[id number] [id number] 2022-06-06 00:00:00 2022-06-06 00:00:00 Outpatient Visit [id number] -[id number] [id number]-w [id number] d91e80 2022-05-20 00:00:00 2022-05-20 00:00:00 Outpatient Visit [id number] -[id number]-592 [id number] [id number]-a [id number]-[id number] bf6a3f 2022-05-10 00:00:00 2022-05-10 00:00:00 Outpatient Visit [id number] [id number] -8301-5f8 [id number] be1-435f-8 [id number] Results Test Description Test Time Test Comments Results Result Co mments Source COMPREHENSIVE METABOLIC [id number] 04:48:19* Test Item Value Reference Range Interpretation Comme nts GLUCOSE (test code = 2217) 91 MG/DL 70-99 BUN (test code = 2208) 7 MG/DL 6-20 CREATININE (test code = 2214) 0.74 MG/DL 0.60-1.30 eGFR (2020 CKD-EPI) (test code = 94313) 105 ML/MIN/1.73 >60 CALC BUN/CREAT (test code = 2235) 9 RATIO 6-28 SODIUM (test code = 2231) 143 MEQ/L 133-146 POTASSIUM (test code = 2228) 4.3 MEQ/L 3.5-5.4 CHLORIDE (test code = 2215) 108 MEQ/L 95-107 H CARBON DIOXIDE (test code = 2206) 25 MEQ/L 19-31 CALCIUM (test code = 2209) 9.3 MG/DL 8.5-10.5 PROTEIN, TOTAL (test code = 222) 7.3 G/DL 6.1-8.3 ALBUMIN (test code = 2201) 3.9 G/DL 3.5-5.2 CALC GLOBULIN (test code = 2240) 3.4 G/DL 1.9-3.7 CALC A/G RATIO (test code = 2234) 1.1 RATIO 1.0-2.6 BILIRUBIN, TOTAL (test code = 7) 0.4 MG/DL <=1.2 ALKALINE PHOSPHATASE (test code = 4) 96 U/L 40-112 AST (test code = 2218) 14 U/L 9-40 ALT (test code = 2219) 17 U/L 5-40 LIPID [id number] 04:48:19* Test Item Value Reference Range Interpretation Comme nts CHOLESTEROL (test code = 0) 154 MG/DL <200 TRIGLYCERIDES (test code = 2232) 81 MG/DL <150 HDL CHOLESTEROL (test code = 0) 40 MG/DL >39 CALC LDL CHOL (test code = 2236) 97 MG/DL <100 NOTE: CALCULATED LDL IS BASED ON SHAMEKA-JACOBSON METHOD WHICHINCLUDES ADJUSTABLE TRIGLYCERIDE:VLDL CHOLESTEROL RATIO.THIS FACTOR VARIES BY MEASURED TRIGLYCERIDE AND NON-HDLCHOLESTEROL CONCENTRATIONS WITH INCREASED CALCULATED LDL SEENIN HIGHER TRIGLYCERIDE OR LOWER NON-HDL SPECIMENS. FOR MOREINFORMATION, SEE CLIENT ANNOUNCEMENT AT [email or web address] RISK RATIO LDL/HDL (test code = 2238) 2.43 RATIO <3.22 HEMOGLOBIN [id number] 02:26:02* Test Item Value Reference Range Interpretation Comme nts HEMOGLOBIN A1c (test code = 58882) 5.9 % 4.2-5.6 H [employer] GUIDELINES FOR HGB A1C: [...] TESTING OR LABORATORY CONSULTATION. ALBUMIN/CREATININE RATIO, RANDOM [id number] 00:00:00* Test Item Value Reference Range Interpretation Comme nts CREATININE, URINE, CONC. (te st code = 2072) 143.9 MG/DL ALBUMIN, URINE, RANDOM (test code = 70589) 0.6 MG/DL CALC ALBUMIN/CREAT, RND (valeria t code = 16066) 4 MG/G Jacobo WittCOMPREHENSIVE METABOLIC [id number] 00:00:00* Test Item Value Reference Range Interpretation Comme nts GLUCOSE (test code = 2217) 91 MG/DL BUN (test code = 2208) 7 MG/DL CREATININE (test code = 2214) 0.74 MG/DL eGFR (2020 CKD-EPI) (test code = 20810) 105 ML/MIN/1.73 CALC BUN/CREAT (test code = [...] code = 2219) 17 U/L Jacobo WittLIPID [id number] 00:00:00* Test Item Value Reference Range Interpretation Comme nts CHOLESTEROL (test code = 2210) 154 MG/DL TRIGLYCERIDES (test code = 2232) 81 MG/DL HDL CHOLESTEROL (test code = 2220) 40 MG/DL CALC LDL CHOL (test code = 2237) 97 MG/DL RISK RATIO LDL/HDL (test cod e = 2238) 2.43 RATIO Jacobo WittHEMOGLOBIN [id number] 00:00:00* Test Item Value Reference Range Interpretation Comme nts HEMOGLOBIN A1c (test code = 70836) 5.9 % Jacobo WittALBUMIN/CREATININE RATIO, RANDOM [id number] 00:00:00* Test Item Value Reference Range Interpretation Comme nts CREATININE, URINE, CONC. (te st code = 2072) 143.9 MG/DL ALBUMIN, URINE, RANDOM (test code = 31751) 0.6 MG/DL CALC ALBUMIN/CREAT, RND (valeria t code = 10386) 4 MG/G Jacobo WittCOMPREHENSIVE METABOLIC [id number] 00:00:00* Test Item Value Reference Range Interpretation Comme nts GLUCOSE (test code = 2217) 91 MG/DL BUN (test code = 2208) 7 MG/DL CREATININE (test code = 2214) 0.74 MG/DL eGFR (2020 CKD-EPI) (test code = 58285) 105 ML/MIN/1.73 CALC BUN/CREAT (test code = [...] code = 2219) 17 U/L Jacobo WittLIPID [id number] 00:00:00* Test Item Value Reference Range Interpretation Comme nts CHOLESTEROL (test code = 2210) 154 MG/DL TRIGLYCERIDES (test code = 2232) 81 MG/DL HDL CHOLESTEROL (test code = 2220) 40 MG/DL CALC LDL CHOL (test code = 2237) 97 MG/DL RISK RATIO LDL/HDL (test cod e = 2238) 2.43 RATIO Jacobo WittHEMOGLOBIN [id number] 00:00:00* Test Item Value Reference Range Interpretation Comme margret HEMOGLOBIN A1c (test code = 93342) 5.9 % Jacobo WittALBUMIN/CREATININE RATIO, RANDOM [id number] 00:00:00* Test Item Value Reference Range Interpretation Comme nts CREATININE, URINE, CONC. (te st code = 207) 143.9 MG/DL ALBUMIN, URINE, RANDOM (test code = 83990) 0.6 MG/DL CALC ALBUMIN/CREAT, RND (valeria t code = 17754) 4 MG/G Jacobo WittCOMPREHENSIVE METABOLIC [id number] 00:00:00* Test Item Value Reference Range Interpretation Comme nts GLUCOSE (test code = 2217) 91 MG/DL BUN (test code = 2208) 7 MG/DL CREATININE (test code = 2214) 0.74 MG/DL eGFR (2020 CKD-EPI) (test code = 23699) 105 ML/MIN/1.73 CALC BUN/CREAT (test code = [...] = 2219) 17 U/L Jacobo Jalloh AustinLIPID [id number] 00:00:00* Test Item Value Reference Range Interpretation Comme nts CHOLESTEROL (test code = 2210) 154 MG/DL TRIGLYCERIDES (test code = 2232) 81 MG/DL HDL CHOLESTEROL (test code = 2220) 40 MG/DL CALC LDL CHOL (test code = 2237) 97 MG/DL RISK RATIO LDL/HDL (test cod e = 2238) 2.43 RATIO Jacobo Jalloh AustinHEMOGLOBIN [id number] 00:00:00* Test Item Value Reference Range Interpretation Comme nts HEMOGLOBIN A1c (test code = 38787) 5.9 % Jacobo F AustinHEMOGLOBIN [id number] 05:25:02* Test Item Value Reference Range Interpretation Comme [facility] HEMOGLOBIN A1c (test code = 39451) 8.4 % 4.2-5.6 H [employer] GUIDELINES FOR HGB A1C: [...] INDICATED, ALL TESTING PERFORMED AT CLINICAL PATHOLOGY [employer] [address] [place] [address] SOLAR ENERGY ENGINEER: ZULEIMA HOLGUIN M.D. CLIA NUMBER [id number] [facility] [place]. [id number] HEMOGLOBIN [id number] 00:00:00* Test Item Value Reference Range Interpretation Comme [facility] HEMOGLOBIN A1c (test code = 47088) 8.4 % Jacobo WittHEMOGLOBIN [id number] 00:00:00* Test Item Value Reference Range Interpretation Comme [facility] HEMOGLOBIN A1c (test code = 16617) 8.4 % Jacobo Jalloh AustinHEMOGLOBIN [id number] 00:00:00* Test Item Value Reference Range Interpretation Comme [facility] HEMOGLOBIN A1c (test code = 36246) 8.4 % Jacobo Jalloh SlaterVITAMIN B 12 AND FOLIC [id number] 06:10:44* Test Item Value Reference Range Interpretation Comme [facility] VITAMIN B-12 (test code = 2840) 503 [...] . . UG/L >=6.0 ALBUMIN/CREATININE RATIO, URINE, [id number] 05:20:09* Test Item Value Reference Range Interpretation Comme nts CREATININE, URINE, CONC. (test code = 2072) 133.0 MG/DL NOT ESTAB ALBUMIN, URINE, RANDOM (test code = 17838) 3.5 MG/DL NOT ESTAB CALC ALBUMIN/CREAT, RND (test code = 69713) 26 MG/G <30 Note: Albumin/Creatinine ratio reference interval reflects ADA and NKF guidelines. TSH, THIRD [id number] 05:11:08* Test Item Value Reference Range Interpretation Comme nts TSH, THIRD GENERATION (test code = 2821) 5.360 UIU/ML 0.400-4.100 H [id number] 05:11:08* Test Item Value Reference Range Interpretation Comme nts FERRITIN (test code = 2075) 84 NG/ML 13-200 [id number] 05:09:49* Test Item Value Reference Range Interpretation Comme nts TRANSFERRIN (test code = 4936) 292 MG/DL 200-360 COMPREHENSIVE METABOLIC [id number] 04:54:54* Test Item Value Reference Range Interpretation Comme nts GLUCOSE (test code = 2217) 165 MG/DL 70-99 H BUN (test code = 220) 11 MG/DL 6-20 CREATININE (test code = 2214) 0.63 MG/DL 0.60-1.30 eGFR (2020 CKD-EPI) (test code = 08448) 115 ML/MIN/1.73 >60 CALC BUN/CREAT (test code = 2235) 17 RATIO 6-28 SODIUM (test code = 223) 141 MEQ/L 133-146 POTASSIUM (test code = 2228) 4.3 MEQ/L 3.5-5.4 CHLORIDE (test code = 2215) 106 MEQ/L 95-107 CARBON DIOXIDE (test code = 2206) 23 MEQ/L 19-31 CALCIUM (test code = 9) 9.6 MG/DL 8.5-10.5 PROTEIN, TOTAL (test code = 2228) 7.3 G/DL 6.1-8.3 ALBUMIN (test code = 2200) 4.1 G/DL 3.5-5.2 CALC GLOBULIN (test code = 224) 3.2 G/DL 1.9-3.7 CALC A/G RATIO (test code = 2233) 1.3 RATIO 1.0-2.6 BILIRUBIN, TOTAL (test code = 2206) 0.5 MG/DL See_Comment [Automated me ssage] The system which generated this result transmitted reference range: <=1.2. The reference range was not used to interpret this result as normal/abnormal. ALKALINE PHOSPHATASE (test code = 2203) 105 U/L 40-112 AST (test code = 8) 25 U/L 9-40 ALT (test code = 2218) 41 U/L 5-40 H LIPID [id number] 04:54:54* Test Item Value Reference Range Interpretation Comme nts CHOLESTEROL (test code = 2209) 207 MG/DL <200 H TRIGLYCERIDES (test code = 2231) 162 MG/DL <150 H HDL CHOLESTEROL (test code = 2219) 34 MG/DL >39 L CALC LDL CHOL (test code = 2236) 143 MG/DL <100 H NOTE: CALCULATED LDL IS BASED ON SHAMEKA-JACOBSON METHOD WHICHINCLUDES ADJUSTABLE TRIGLYCERIDE:VLDL CHOLESTEROL RATIO.THIS FACTOR VARIES BY MEASURED TRIGLYCERIDE AND NON-HDLCHOLESTEROL CONCENTRATIONS WITH INCREASED CALCULATED LDL SEENIN HIGHER TRIGLYCERIDE OR LOWER NON-HDL SPECIMENS. FOR MOREINFORMATION, SEE CLIENT ANNOUNCEMENT AT [email or web address] RATIO LDL/HDL (test code = 2238) 4.21 RATIO <3.22 H UNLESS OTHERW ISE INDICATED, ALL TESTING PERFORMED AT [facility] [address] [place] [address] SOLAR ENERGY ENGINEER: ZULEIMA HOLGUIN M.D. CLIA NUMBER [id number] [facility] [place] [id number] IRON BINDING CAPACITY AND IRON AND % [id number] 04:54:54* Test Item Value Reference Range Interpretation Comme nts IRON, SERUM (test code = 222) 81 UG/DL 37-145 UNSATURATED IBC (test code = 11403) 257 UG/DL 112-347 CALC TOTAL IBC (test code = 2076) 338 UG/DL 250-450 CALC % IRON SAT (test code = 2078) 24 % 20-50 VITAMIN B 12 AND FOLIC [id number] 00:00:00* Test Item Value Reference Range Interpretation Comme nts VITAMIN B-12 (test code = 2840) 503 PG/ML FOLIC ACID (test code = 2695) 8.2 UG/L Jacobo F AustinCOMPREHENSIVE METABOLIC [id number] 00:00:00* Test Item Value Reference Range Interpretation Comme nts GLUCOSE (test code = 2216) 165 MG/DL BUN (test code = 2207) 11 MG/DL CREATININE (test code = 2214) 0.63 MG/DL eGFR (2020 CKD-EPI) (test code = ) 115 ML/MIN/1.73 CALC BUN/CREAT (test code = 2234) 17 RATIO SODIUM (test code = 223) 141 MEQ/L POTASSIUM (test code = 2228) 4.3 MEQ/L CHLORIDE (test code = 2215) 106 MEQ/L CARBON DIOXIDE (test code = 2206) 23 MEQ/L CALCIUM (test code = 2209) 9.6 MG/DL PROTEIN, TOTAL (test code = 2228) 7.3 G/DL ALBUMIN (test code = 2200) 4.1 G/DL CALC GLOBULIN (test code = 2239) 3.2 G/DL CALC A/G RATIO (test code = 2233) 1.3 RATIO BILIRUBIN, TOTAL (test code = 2206) 0.5 MG/DL ALKALINE PHOSPHATASE (test code = 2203) 105 U/L AST (test code = 2217) 25 U/L ALT (test code = 2218) 41 U/L Jacobo WittALBUMIN/CREATININE RATIO, RANDOM [id number] 00:00:00* Test Item Value Reference Range Interpretation Comme nts CREATININE, URINE, CONC. (te st code = 2072) 133.0 MG/DL ALBUMIN, URINE, RANDOM (test code = 47506) 3.5 MG/DL CALC ALBUMIN/CREAT, RND (valeria t code = 53174) 26 MG/G Jacobo WittTSH, THIRD [id number] 00:00:00* Test Item Value Reference Range Interpretation Comme nts TSH, THIRD GENERATION (test code = 2821) 5.360 UIU/ML Jacobo WittLIPID [id number] 00:00:00* Test Item Value Reference Range Interpretation Comme nts CHOLESTEROL (test code = 2210) 207 MG/DL TRIGLYCERIDES (test code = 2) 162 MG/DL HDL CHOLESTEROL (test code = 222) 34 MG/DL CALC LDL CHOL (test code = 2237) 143 MG/DL RISK RATIO LDL/HDL (test cod e = 2238) 4.21 RATIO Jacobo WittIRON BINDING CAPACITY AND IRON AND % [id number] 00:00:00* Test Item Value Reference Range Interpretation Comme nts IRON, SERUM (test code = 2221) 81 UG/DL UNSATURATED IBC (test code = 06908) 257 UG/DL CALC TOTAL IBC (test code = 2076) 338 UG/DL CALC % IRON SAT (test code = 2078) 24 % Jacobo [id number] 00:00:00* Test Item Value Reference Range Interpretation Comme nts FERRITIN (test code = 2074) 84 NG/ML Jacobo [id number] 00:00:00* Test Item Value Reference Range Interpretation Comme nts TRANSFERRIN (test code = 4936) 292 MG/DL Jacobo WittVITAMIN B 12 AND FOLIC [id number] 00:00:00* Test Item Value Reference Range Interpretation Comme nts VITAMIN B-12 (test code = 2840) 503 PG/ML FOLIC ACID (test code = 2695) 8.2 UG/L Jacobo WittCOMPREHENSIVE METABOLIC [id number] 00:00:00* Test Item Value Reference Range Interpretation Comme nts GLUCOSE (test code = 2217) 165 MG/DL BUN (test code = 2208) 11 MG/DL CREATININE (test code = 2214) 0.63 MG/DL eGFR (2020 CKD-EPI) (test code = 86251) 115 ML/MIN/1.73 CALC BUN/CREAT (test code = [...] 2219) 41 U/L Jacobo WittALBUMIN/CREATININE RATIO, RANDOM [id number] 00:00:00* Test Item Value Reference Range Interpretation Comme margret CREATININE, URINE, CONC. (te st code = 2072) 133.0 MG/DL ALBUMIN, URINE, RANDOM (test code = 52592) 3.5 MG/DL CALC ALBUMIN/CREAT, RND (valeria t code = 32236) 26 MG/G Jacobo WittTSH, THIRD [id number] 00:00:00* Test Item Value Reference Range Interpretation Comme margret TSH, THIRD GENERATION (test code = 2821) 5.360 UIU/ML Jacobo WittLIPID [id number] 00:00:00* Test Item Value Reference Range Interpretation Comme nts CHOLESTEROL (test code = 2210) 207 MG/DL TRIGLYCERIDES (test code = 2232) 162 MG/DL HDL CHOLESTEROL (test code = 2220) 34 MG/DL CALC LDL CHOL (test code = 2237) 143 MG/DL RISK RATIO LDL/HDL (test cod e = 2238) 4.21 RATIO Jacobo WittIRON BINDING CAPACITY AND IRON AND % [id number] 00:00:00* Test Item Value Reference Range Interpretation Comme nts IRON, SERUM (test code = 222) 81 UG/DL UNSATURATED IBC (test code = 03364) 257 UG/DL CALC TOTAL IBC (test code = 7) 338 UG/DL CALC % IRON SAT (test code = 207) 24 % Jacobo [id number] 00:00:00* Test Item Value Reference Range Interpretation Comme nts FERRITIN (test code = 2075) 84 NG/ML Jacobo [id number] 00:00:00* Test Item Value Reference Range Interpretation Comme nts TRANSFERRIN (test code = 4936) 292 MG/DL Jacobo WittVITAMIN B 12 AND FOLIC [id number] 00:00:00* Test Item Value Reference Range Interpretation Comme nts VITAMIN B-12 (test code = 2840) 503 PG/ML FOLIC ACID (test code = 2695) 8.2 UG/L Jacobo WittCOMPREHENSIVE METABOLIC [id number] 00:00:00* Test Item Value Reference Range Interpretation Comme nts GLUCOSE (test code = 2216) 165 MG/DL BUN (test code = 8) 11 MG/DL CREATININE (test code = 2214) 0.63 MG/DL eGFR (2020 CKD-EPI) (test code = ) 115 ML/MIN/1.73 CALC BUN/CREAT (test code = 2234) 17 RATIO SODIUM (test code = 2231) 141 MEQ/L POTASSIUM (test code = 2228) 4.3 MEQ/L CHLORIDE (test code = 2215) 106 MEQ/L CARBON DIOXIDE (test code = 2206) 23 MEQ/L CALCIUM (test code = 2209) 9.6 MG/DL PROTEIN, TOTAL (test code = 2228) 7.3 G/DL ALBUMIN (test code = 2200) 4.1 G/DL CALC GLOBULIN (test code = 2240) 3.2 G/DL CALC A/G RATIO (test code = 2233) 1.3 RATIO BILIRUBIN, TOTAL (test code = 2206) 0.5 MG/DL ALKALINE PHOSPHATASE (test code = 2203) 105 U/L AST (test code = 8) 25 U/L ALT (test code = 2218) 41 U/L Jacobo WittALBUMIN/CREATININE RATIO, RANDOM [id number] 00:00:00* Test Item Value Reference Range Interpretation Comme nts CREATININE, URINE, CONC. (te st code = 207) 133.0 MG/DL ALBUMIN, URINE, RANDOM (test code = 96986) 3.5 MG/DL CALC ALBUMIN/CREAT, RND (valeria t code = 96011) 26 MG/G Jacobo WittTSH, THIRD [id number] 00:00:00* Test Item Value Reference Range Interpretation Comme nts TSH, THIRD GENERATION (test code = 2821) 5.360 UIU/ML Jacobo WittLIPID [id number] 00:00:00* Test Item Value Reference Range Interpretation Comme nts CHOLESTEROL (test code = 2209) 207 MG/DL TRIGLYCERIDES (test code = 2) 162 MG/DL HDL CHOLESTEROL (test code = 222) 34 MG/DL CALC LDL CHOL (test code = 2237) 143 MG/DL RISK RATIO LDL/HDL (test cod e = 2238) 4.21 RATIO Jacobo WittIRON BINDING CAPACITY AND IRON AND % [id number] 00:00:00* Test Item Value Reference Range Interpretation Comme nts IRON, SERUM (test code = 2222) 81 UG/DL UNSATURATED IBC (test code = 15365) 257 UG/DL CALC TOTAL IBC (test code = 7) 338 UG/DL CALC % IRON SAT (test code = 207) 24 % Jacobonikko [id number] 00:00:00* Test Item Value Reference Range Interpretation Comme nts FERRITIN (test code = 2075) 84 NG/ML Jacobo [id number] 00:00:00* Test Item Value Reference Range Interpretation Comme nts TRANSFERRIN (test code = 4936) 292 MG/DL Jacobo WittSARS-CoV-2 (COVID-19), RT-PCR/[id number] 08:48:24* Test Item Value Reference Range Interpretation Comments SARS-CoV-2 INTERPRETATION (test code = 44318) NEGATIVE SEE NOTE SARS-CoV-2 R NA NOT [...] ORDER CODE 3509. SOURCE (test code = 44077) NOT SPECIFIED Note: Methodolog y is [facility] Real-Time RT-PCR. The expected result or reference range is NEGATIVE (Not Detected). For more information regarding COVID-19 testing to include clinicalinformation, methodology detail, intended use, FDA authorization andrecommended fact sheets for patients or healthcare providers, see [facility] Announcement: SARS-CoV-2 (COVID-19) by NAAT at URL below (note,fact sheets are provided by method given in report:[email or web address] Alternatively, see downloadable PDF fact sheet at:[email or web address] UNLESS OTHERWISE INDICATED, ALL TESTING PERFORMED [facility] [employer], [facility]. [address] [place] [address] SOLAR ENERGY ENGINEER: LETTY MILLER M.D. [place] NUMBER [id number] [facility] [place]. [id number] SARS-CoV-2 (COVID-19) by RT-PCR (HIGH RISK)2021-12-10 00:00:00* Test Item Value Reference Range Interpretation Comme nts SARS-CoV-2 INTERPRETATION (t est code = 73972) NEGATIVE SOURCE (test code = 82438) NOT SPECIFIED SARS-CoV-2 (COVID-19) by RT-PCR (HIGH RISK)2021-12-10 00:00:00* Test Item Value Reference Range Interpretation Comme nts SARS-CoV-2 INTERPRETATION (t est code = 56343) NEGATIVE SOURCE (test code = 04827) NOT SPECIFIED Jacobo F [id number] (COVID-19) by RT-PCR (HIGH RISK)2021-12-10 00:00:00* Test Item Value Reference Range Interpretation Comme nts SARS-CoV-2 INTERPRETATION (t est code = 65696) NEGATIVE SOURCE (test code = 80642) NOT SPECIFIED Jacobo F [id number] (COVID-19) by RT-PCR (HIGH RISK)2021-12-10 00:00:00* Test Item Value Reference Range Interpretation Comme nts SARS-CoV-2 INTERPRETATION (t est code = 48537) NEGATIVE SOURCE (test code = 72898) NOT SPECIFIED Jacobo F [id number] (COVID-19) by RT-PCR (HIGH RISK)2021-12-10 00:00:00* Test Item Value Reference Range Interpretation Comme nts SARS-CoV-2 INTERPRETATION (t est code = 46163) NEGATIVE SOURCE (test code = 69435) NOT SPECIFIED SARS-CoV-2 (COVID-19) by RT-PCR (HIGH RISK)2021-12-10 00:00:00* Test Item Value Reference Range Interpretation Comme nts SARS-CoV-2 INTERPRETATION (t est code = 15216) NEGATIVE SOURCE (test code = 54866) NOT SPECIFIED SARS-CoV-2 (COVID-19) by RT-PCR (HIGH RISK)2021-12-10 00:00:00* Test Item Value Reference Range Interpretation Comme nts SARS-CoV-2 INTERPRETATION (t est code = 29198) NEGATIVE SOURCE (test code = 01370) NOT SPECIFIED SARS-CoV-2 (COVID-19) by RT-PCR (HIGH RISK)2021-12-10 00:00:00* Test Item Value Reference Range Interpretation Comme nts SARS-CoV-2 INTERPRETATION (t est code = 90849) NEGATIVE SOURCE (test code = 86888) NOT SPECIFIED SARS-CoV-2 (COVID-19) by RT-PCR (HIGH RISK)2021-12-10 00:00:00* Test Item Value Reference Range Interpretation Comme nts SARS-CoV-2 INTERPRETATION (t est code = 76734) NEGATIVE SOURCE (test code = 91018) NOT SPECIFIED TSH + FREE T4 [id number] 04:46:08* Test Item Value Reference Range Interpretation Comme nts TSH, THIRD GENERATION (test code = 2821) 3.090 UIU/ML 0.400-4.100 FREE T4 (THYROXINE) (test code = 2823) 0.88 NG/DL 0.80-1.90 UNLESS OTHERW ISE INDICATED, ALL TESTING PERFORMED [facility] [address] [place] [address] SOLAR ENERGY ENGINEER: LETTY MILLER M.D. CLIA NUMBER [id number] [facility] [place]. [id number] TSH + FREE T4 [id number] 00:00:00* Test Item Value Reference Range Interpretation Comme nts TSH, THIRD GENERATION (test code = 2821) 3.090 UIU/ML FREE T4 (THYROXINE) (test co de = 2823) 0.88 NG/DL Jacobo WittTSH + FREE T4 [id number] 00:00:00* Test Item Value Reference Range Interpretation Comme nts TSH, THIRD GENERATION (test code = 2821) 3.090 UIU/ML FREE T4 (THYROXINE) (test co de = 2823) 0.88 NG/DL Jacobo WittTSH + FREE T4 [id number] 00:00:00* Test Item Value Reference Range Interpretation Comme nts TSH, THIRD GENERATION (test code = 2821) 3.090 UIU/ML FREE T4 (THYROXINE) (test co de = 2823) 0.88 NG/DL Jacobo WittTSH + FREE T4 [id number] 00:00:00* Test Item Value Reference Range Interpretation Comme nts TSH, THIRD GENERATION (test code = 2821) 3.090 UIU/ML FREE T4 (THYROXINE) (test co de = 2823) 0.88 NG/DL TSH + FREE T4 [id number] 00:00:00* Test Item Value Reference Range Interpretation Comme nts TSH, THIRD GENERATION (test code = 2821) 3.090 UIU/ML FREE T4 (THYROXINE) (test co de = 2823) 0.88 NG/DL TSH + FREE T4 [id number] 00:00:00* Test Item Value Reference Range Interpretation Comme nts TSH, THIRD GENERATION (test code = 2821) 3.090 UIU/ML FREE T4 (THYROXINE) (test co de = 2823) 0.88 NG/DL TSH + FREE T4 [id number] 00:00:00* Test Item Value Reference Range Interpretation Comme nts TSH, THIRD GENERATION (test code = 2821) 3.090 UIU/ML FREE T4 (THYROXINE) (test co de = 2823) 0.88 NG/DL TSH + FREE T4 [id number] 00:00:00* Test Item Value Reference Range Interpretation Comme nts TSH, THIRD GENERATION (test code = 2821) 3.090 UIU/ML FREE T4 (THYROXINE) (test co de = 2823) 0.88 NG/DL TSH + FREE T4 [id number] 00:00:00* Test Item Value Reference Range Interpretation Comme nts TSH, THIRD GENERATION (test code = 2821) 3.090 UIU/ML FREE T4 (THYROXINE) (test co de = 2823) 0.88 NG/DL HEMOGLOBIN [id number] 00:00:00* Test Item Value Reference Range Interpretation Comme nts HEMOGLOBIN A1c (test code = 75976) 8.4 % CBC W/AUTO [id number] 00:00:00* Test Item Value Reference Range Interpretation [...] ABS NUCLEATED RBCS (test cod e = 66302) 0.00 K/UL Jacobo WittHEMOGLOBIN [id number] 00:00:00* Test Item Value Reference Range Interpretation Comme nts HEMOGLOBIN A1c (test code = 05926) 8.4 % Jacobo WittCOMPREHENSIVE METABOLIC [id number] 00:00:00* Test Item Value Reference Range Interpretation Comme nts GLUCOSE (test code = 2217) 128 MG/DL BUN (test code = 2208) 15 MG/DL CREATININE (test code = 2214) 0.64 MG/DL eGFR AMER. (test cod e = 31444) 131 ML/MIN/1.73 eGFR NON- AMER. (test code = 19106) 113 ML/MIN/1.73 CALC BUN/CREAT (test code = [...] code = 2219) 37 U/L Jacobo Jalloh [facility] W/AUTO [id number] 00:00:00* Test Item Value Reference Range Interpretation [...] ABS NUCLEATED RBCS (test cod e = 31804) 0.00 K/UL Jacobo WittHEMOGLOBIN [id number] 00:00:00* Test Item Value Reference Range Interpretation Comme nts HEMOGLOBIN A1c (test code = 49568) 8.4 % Jacobo WittCOMPREHENSIVE METABOLIC [id number] 00:00:00* Test Item Value Reference Range Interpretation Comme nts GLUCOSE (test code = 2217) 128 MG/DL BUN (test code = 2208) 15 MG/DL CREATININE (test code = 2214) 0.64 MG/DL eGFR AMER. (test cod e = 58730) 131 ML/MIN/1.73 eGFR NON- AMER. (test code = 47597) 113 ML/MIN/1.73 CALC BUN/CREAT (test code = [...] = 2219) 37 U/L Jacobo WittCBC W/AUTO [id number] 00:00:00* Test Item Value Reference Range Interpretation [...] ABS NUCLEATED RBCS (test cod e = 51657) 0.00 K/UL [facility] [id number] 00:00:00* Test Item Value Reference Range Interpretation [...] ABS NUCLEATED RBCS (test cod e = 99795) 0.00 K/UL COMPREHENSIVE METABOLIC [id number] 00:00:00* Test Item Value Reference Range Interpretation Comme nts GLUCOSE (test code = 2217) 128 MG/DL BUN (test code = 2208) 15 MG/DL CREATININE (test code = 2214) 0.64 MG/DL eGFR AMER. (test cod e = 16310) 131 ML/MIN/1.73 eGFR NON- AMER. (test code = 86473) 113 ML/MIN/1.73 CALC BUN/CREAT (test code = [...] (test code = 2219) 37 U/L HEMOGLOBIN [id number] 00:00:00* Test Item Value Reference Range Interpretation Comme nts HEMOGLOBIN A1c (test code = 16743) 8.4 % HEMOGLOBIN [id number] 00:00:00* Test Item Value Reference Range Interpretation Comme nts HEMOGLOBIN A1c (test code = 98706) 8.4 % Jacobo WittCOMPREHENSIVE METABOLIC [id number] 00:00:00* Test Item Value Reference Range Interpretation Comme nts GLUCOSE (test code = 2217) 128 MG/DL BUN (test code = 2208) 15 MG/DL CREATININE (test code = 2214) 0.64 MG/DL eGFR AMER. (test cod e = 98614) 131 ML/MIN/1.73 eGFR NON- AMER. (test code = 09086) 113 ML/MIN/1.73 CALC BUN/CREAT (test code = [...] code = 2219) 37 U/L CBC W/AUTO [id number] 00:00:00* Test Item Value Reference Range Interpretation [...] ABS NUCLEATED RBCS (test cod e = 61057) 0.00 K/UL HEMOGLOBIN [id number] 00:00:00* Test Item Value Reference Range Interpretation Comme nts HEMOGLOBIN A1c (test code = 11336) 8.4 % COMPREHENSIVE METABOLIC [id number] 00:00:00* Test Item Value Reference Range Interpretation Comme nts GLUCOSE (test code = 2217) 128 MG/DL BUN (test code = 2208) 15 MG/DL CREATININE (test code = 2214) 0.64 MG/DL eGFR AMER. (test cod e = 32410) 131 ML/MIN/1.73 eGFR NON- AMER. (test code = 62310) 113 ML/MIN/1.73 CALC BUN/CREAT (test code = [...] code = 2219) 37 U/L COMPREHENSIVE METABOLIC [id number] 00:00:00* Test Item Value Reference Range Interpretation Comme nts GLUCOSE (test code = 2217) 128 MG/DL BUN (test code = 2208) 15 MG/DL CREATININE (test code = 2214) 0.64 MG/DL eGFR AMER. (test cod e = 05837) 131 ML/MIN/1.73 eGFR NON- AMER. (test code = 46537) 113 ML/MIN/1.73 CALC BUN/CREAT (test code = [...] code = 2219) 37 U/L Jacobo Jalloh [facility] W/AUTO [id number] 00:00:00* Test Item Value Reference Range Interpretation [...] ABS NUCLEATED RBCS (test cod e = 33438) 0.00 K/UL HEMOGLOBIN [id number] 00:00:00* Test Item Value Reference Range Interpretation Comme nts HEMOGLOBIN A1c (test code = 22647) 8.4 % COMPREHENSIVE METABOLIC [id number] 00:00:00* Test Item Value Reference Range Interpretation Comme nts GLUCOSE (test code = 2217) 128 MG/DL BUN (test code = 2208) 15 MG/DL CREATININE (test code = 2214) 0.64 MG/DL eGFR AMER. (test cod e = 88470) 131 ML/MIN/1.73 eGFR NON- AMER. (test code = 60644) 113 ML/MIN/1.73 CALC BUN/CREAT (test code = [...] code = 2219) 37 U/L CBC W/AUTO [id number] 00:00:00* Test Item Value Reference Range Interpretation [...] ABS NUCLEATED RBCS (test cod e = 86290) 0.00 K/UL HEMOGLOBIN [id number] 00:00:00* Test Item Value Reference Range Interpretation Comme nts HEMOGLOBIN A1c (test code = 40476) 8.4 % COMPREHENSIVE METABOLIC [id number] 00:00:00* Test Item Value Reference Range Interpretation Comme nts GLUCOSE (test code = 2217) 128 MG/DL BUN (test code = 2208) 15 MG/DL CREATININE (test code = 2214) 0.64 MG/DL eGFR AMER. (test cod e = 15783) 131 ML/MIN/1.73 eGFR NON- AMER. (test code = 34130) 113 ML/MIN/1.73 CALC BUN/CREAT (test code = [...] code = 2219) 37 U/L CBC W/AUTO [id number] 00:00:00* Test Item Value Reference Range Interpretation [...] ABS NUCLEATED RBCS (test cod e = 64472) 0.00 K/UL CBC W/AUTO [id number] 00:00:00* Test Item Value Reference Range Interpretation [...] ABS NUCLEATED RBCS (test cod e = 26617) 0.00 K/UL HEMOGLOBIN [id number] 00:00:00* Test Item Value Reference Range Interpretation Comme nts HEMOGLOBIN A1c (test code = 01270) 8.4 % COMPREHENSIVE METABOLIC [id number] 00:00:00* Test Item Value Reference Range Interpretation Comme nts GLUCOSE (test code = 2217) 128 MG/DL BUN (test code = 2208) 15 MG/DL CREATININE (test code = 2214) 0.64 MG/DL eGFR AMER. (test cod e = 64639) 131 ML/MIN/1.73 eGFR NON- AMER. (test code = 04236) 113 ML/MIN/1.73 CALC BUN/CREAT (test code = [...] ALT (test code = 2219) 37 U/L PAP TEST, THINPREP, [id number] 00:00:00* Test Item Value Reference Range Interpretation Comme nts SOURCE: (test code = 8001) Cervical/Endocervical SLIDES: (test code = 8011) 1 LMP: (test code = 8021) 09/25/2020 SPECIMEN ADEQUACY: (test code = 97682) (NOTE) INTERPRETATION: (test code = 45601) NILM/NO EPITH. ABNORMALITY;SEE BELOW ASPHALT DAUBER: (test code = 8101) RAMY Turcios (ASCP) LOCATION: (test code = 50841) (NOTE) CPT: (test code = 8140) (NOTE) Jacobo WittHPV HIGH RISK WITH GENOTYPE, [id number] 00:00:00* Test Item Value Reference Range Interpretation Comme nts HPV HIGH RISK INTERP (test c ode = 43453) NEGATIVE HPV 16 (test code = 65829) NEGATIVE HPV 18 (test code = 51246) NEGATIVE HPV, HR, OTHER GENOTYPES (te st code = 94088) NEGATIVE Jacobo WittPAP TEST, THINPREP, [id number] 00:00:00* Test Item Value Reference Range Interpretation Comme nts SOURCE: (test code = 8001) Cervical/Endocervical SLIDES: (test code = 8011) 1 LMP: (test code = 8021) 09/25/2020 SPECIMEN ADEQUACY: (test code = 76620) (NOTE) INTERPRETATION: (test code = 09245) NILM/NO EPITH. ABNORMALITY;SEE BELOW ASPHALT DAUBER: (test code = 8101) RAMY Turcios (ASCP) LOCATION: (test code = 71136) (NOTE) CPT: (test code = 8140) (NOTE) Jacobo Jalloh AustinHPV HIGH RISK WITH GENOTYPE, [id number] 00:00:00* Test Item Value Reference Range Interpretation Comme nts HPV HIGH RISK INTERP (test c ode = 09821) NEGATIVE HPV 16 (test code = 15901) NEGATIVE HPV 18 (test code = 87662) NEGATIVE HPV, HR, OTHER GENOTYPES (te st code = 31063) NEGATIVE Jacobo WittPAP TEST, THINPREP, [id number] 00:00:00* Test Item Value Reference Range Interpretation Comme nts SOURCE: (test code = 8001) Cervical/Endocervical SLIDES: (test code = 8011) 1 LMP: (test code = 8021) 09/25/2020 SPECIMEN ADEQUACY: (test code = 04683) (NOTE) INTERPRETATION: (test code = 76072) NILM/NO EPITH. ABNORMALITY;SEE BELOW ASPHALT DAUBER: (test code = 8101) RAMY Turcios (ASCP) LOCATION: (test code = 86854) (NOTE) CPT: (test code = 8140) (NOTE) Jacobo WittHPV HIGH RISK WITH GENOTYPE, [id number] 00:00:00* Test Item Value Reference Range Interpretation Comme nts HPV HIGH RISK INTERP (test c ode = 42896) NEGATIVE HPV 16 (test code = 17639) NEGATIVE HPV 18 (test code = 85076) NEGATIVE HPV, HR, OTHER GENOTYPES (te st code = 09354) NEGATIVE PAP TEST, THINPREP, [id number] 00:00:00* Test Item Value Reference Range Interpretation Comme nts SOURCE: (test code = 8001) Cervical/Endocervical SLIDES: (test code = 8011) 1 LMP: (test code = 8021) 09/25/2020 SPECIMEN ADEQUACY: (test code = 57446) (NOTE) INTERPRETATION: (test code = 36788) NILM/NO EPITH. ABNORMALITY;SEE BELOW ASPHALT DAUBER: (test code = 8101) RAMY Turcios (ASCP) LOCATION: (test code = 57108) (NOTE) CPT: (test code = 8140) (NOTE) HPV HIGH RISK WITH GENOTYPE, [id number] 00:00:00* Test Item Value Reference Range Interpretation Comme nts HPV HIGH RISK INTERP (test c ode = 62882) NEGATIVE HPV 16 (test code = 30890) NEGATIVE HPV 18 (test code = 16371) NEGATIVE HPV, HR, OTHER GENOTYPES (te st code = 94146) NEGATIVE Jacobo F AustinHPV HIGH RISK WITH GENOTYPE, [id number] 00:00:00* Test Item Value Reference Range Interpretation Comme nts HPV HIGH RISK INTERP (test c ode = 01356) NEGATIVE HPV 16 (test code = 17236) NEGATIVE HPV 18 (test code = 13995) NEGATIVE HPV, HR, OTHER GENOTYPES (te st code = 14197) NEGATIVE PAP TEST, THINPREP, [id number] 00:00:00* Test Item Value Reference Range Interpretation Comme nts SOURCE: (test code = 8001) Cervical/Endocervical SLIDES: (test code = 8011) 1 LMP: (test code = 8021) 09/25/2020 SPECIMEN ADEQUACY: (test code = 87269) (NOTE) INTERPRETATION: (test code = 87143) NILM/NO EPITH. ABNORMALITY;SEE BELOW ASPHALT DAUBER: (test code = 8101) RAMY Turcios (ASCP) LOCATION: (test code = 48269) (NOTE) CPT: (test code = 8140) (NOTE) HPV HIGH RISK WITH GENOTYPE, [id number] 00:00:00* Test Item Value Reference Range Interpretation Comme nts HPV HIGH RISK INTERP (test c ode = 55891) NEGATIVE HPV 16 (test code = 83192) NEGATIVE HPV 18 (test code = 20418) NEGATIVE HPV, HR, OTHER GENOTYPES (te st code = 88236) NEGATIVE PAP TEST, THINPREP, [id number] 00:00:00* Test Item Value Reference Range Interpretation Comme nts SOURCE: (test code = 8001) Cervical/Endocervical SLIDES: (test code = 8011) 1 LMP: (test code = 8021) 09/25/2020 SPECIMEN ADEQUACY: (test code = 09343) (NOTE) INTERPRETATION: (test code = 43343) NILM/NO EPITH. ABNORMALITY;SEE BELOW ASPHALT DAUBER: (test code = 8101) RAMY Turcios (ASCP) LOCATION: (test code = 79905) (NOTE) CPT: (test code = 8140) (NOTE) HPV HIGH RISK WITH GENOTYPE, [id number] 00:00:00* Test Item Value Reference Range Interpretation Comme nts HPV HIGH RISK INTERP (test c ode = 62435) NEGATIVE HPV 16 (test code = 59275) NEGATIVE HPV 18 (test code = 76458) NEGATIVE HPV, HR, OTHER GENOTYPES (te st code = 99652) NEGATIVE PAP TEST, THINPREP, [id number] 00:00:00* Test Item Value Reference Range Interpretation Comme nts SOURCE: (test code = 8001) Cervical/Endocervical SLIDES: (test code = 8011) 1 LMP: (test code = 8021) 09/25/2020 SPECIMEN ADEQUACY: (test code = 61456) (NOTE) INTERPRETATION: (test code = 14416) NILM/NO EPITH. ABNORMALITY;SEE BELOW ASPHALT DAUBER: (test code = 8101) RAMY Turcios (ASCP) LOCATION: (test code = 34206) (NOTE) CPT: (test code = 8140) (NOTE) HPV HIGH RISK WITH GENOTYPE, [id number] 00:00:00* Test Item Value Reference Range Interpretation Comme nts HPV HIGH RISK INTERP (test c ode = 73771) NEGATIVE HPV 16 (test code = 94376) NEGATIVE HPV 18 (test code = 15640) NEGATIVE HPV, HR, OTHER GENOTYPES (te st code = 08826) NEGATIVE PAP TEST, THINPREP, [id number] 00:00:00* Test Item Value Reference Range Interpretation Comme nts SOURCE: (test code = 8001) Cervical/Endocervical SLIDES: (test code = 8011) 1 LMP: (test code = 8021) 09/25/2020 SPECIMEN ADEQUACY: (test code = 66393) (NOTE) INTERPRETATION: (test code = 18870) NILM/NO EPITH. ABNORMALITY;SEE BELOW ASPHALT DAUBER: (test code = 8101) RAMY Turcios (ASCP) LOCATION: (test code = 77402) (NOTE) CPT: (test code = 8140) (NOTE) HPV HIGH RISK WITH GENOTYPE, [id number] 00:00:00* Test Item Value Reference Range Interpretation Comme nts HPV HIGH RISK INTERP (test c ode = 67514) NEGATIVE HPV 16 (test code = 99782) NEGATIVE HPV 18 (test code = 39075) NEGATIVE HPV, HR, OTHER GENOTYPES (te st code = 13475) NEGATIVE PAP TEST, THINPREP, [id number] 00:00:00* Test Item Value Reference Range Interpretation Comme nts SOURCE: (test code = 8001) Cervical/Endocervical SLIDES: (test code = 8011) 1 LMP: (test code = 8021) 09/25/2020 SPECIMEN ADEQUACY: (test code = 89277) (NOTE) INTERPRETATION: (test code = 76913) NILM/NO EPITH. ABNORMALITY;SEE BELOW ASPHALT DAUBER: (test code = 8101) RAMY Turcios (ASCP) LOCATION: (test code = 18766) (NOTE) CPT: (test code = 8140) (NOTE) CBC W/AUTO [id number] 00:00:00* Test Item Value Reference Range Interpretation [...] (test code = 1015) 275 K/UL Jacobo [id number] 00:00:00* Test Item Value Reference Range Interpretation Comme nts TSH, THIRD GENERATION (test code = 2821) 5.170 UIU/ML Jacobo F AustinCBC W/AUTO [id number] 00:00:00* Test Item Value Reference Range Interpretation [...] (test code = 1015) 275 K/UL Jacobo [id number] 00:00:00* Test Item Value Reference Range Interpretation Comme nts TSH, THIRD GENERATION (test code = 2821) 5.170 UIU/ML Jacobo WittCBC W/AUTO [id number] 00:00:00* Test Item Value Reference Range Interpretation [...] (test code = 1015) 275 K/UL Jacobo Jalloh [id number] 00:00:00* Test Item Value Reference Range Interpretation Comme nts TSH, THIRD GENERATION (test code = 2821) 5.170 UIU/ML CBC W/AUTO [id number] 00:00:00* Test Item Value Reference Range Interpretation [...] COUNT (test code = 1015) 275 K/UL [id number] 00:00:00* Test Item Value Reference Range Interpretation Comme nts TSH, THIRD GENERATION (test code = 2821) 5.170 UIU/ML CBC W/AUTO [id number] 00:00:00* Test Item Value Reference Range Interpretation [...] COUNT (test code = 1015) 275 K/UL [id number] 00:00:00* Test Item Value Reference Range Interpretation Comme nts TSH, THIRD GENERATION (test code = 2821) 5.170 UIU/ML Jacobo [id number] 00:00:00* Test Item Value Reference Range Interpretation Comme nts TSH, THIRD GENERATION (test code = 2821) 5.170 UIU/ML CBC W/AUTO [id number] 00:00:00* Test Item Value Reference Range Interpretation [...] COUNT (test code = 1015) 275 K/UL [id number] 00:00:00* Test Item Value Reference Range Interpretation Comme nts TSH, THIRD GENERATION (test code = 2821) 5.170 UIU/ML CBC W/AUTO [id number] 00:00:00* Test Item Value Reference Range Interpretation [...] COUNT (test code = 1015) 275 K/UL [id number] 00:00:00* Test Item Value Reference Range Interpretation Comme nts TSH, THIRD GENERATION (test code = 2821) 5.170 UIU/ML CBC W/AUTO [id number] 00:00:00* Test Item Value Reference Range Interpretation [...] code = 1015) 275 K/UL CBC W/AUTO [id number] 00:00:00* Test Item Value Reference Range Interpretation [...] COUNT (test code = 1015) 275 K/UL [id number] 00:00:00* Test Item Value Reference Range Interpretation [...] (test code = 2821) 0.44 UIU/ML [facility] [id number] 00:00:00* Test Item Value Reference Range Interpretation [...] (test code = 2821) 0.44 UIU/ML [facility] [id number] 00:00:00* Test Item Value Reference Range Interpretation [...] = 2821) 0.44 UIU/ML Jacobo WittCBC W/AUTO [id number] 00:00:00* Test Item Value Reference Range Interpretation [...] code = 2821) 0.44 UIU/ML CBC W/AUTO [id number] 00:00:00* Test Item Value Reference Range Interpretation [...] (test code = 1016) (NOTE) CBC W/AUTO [id number] 00:00:00* Test Item Value Reference Range Interpretation [...] code = 2821) 0.44 UIU/ML CBC W/AUTO [id number] 00:00:00* Test Item Value Reference Range Interpretation [...] code = 2821) 0.44 UIU/ML CBC W/AUTO [id number] 00:00:00* Test Item Value Reference Range Interpretation [...] code = 2821) 0.44 UIU/ML CBC W/AUTO [id number] 00:00:00* Test Item Value Reference Range Interpretation [...] code = 2821) 0.44 UIU/ML CBC W/AUTO [id number] 00:00:00* Test Item Value Reference Range Interpretation [...] TSH (test code = 2821) 0.44 UIU/ML [id number] 00:00:00* Test Item Value Reference Range Interpretation Comme nts FERRITIN (test code = 207) 2 NG/ML Jacobo WittIRON BINDING CAPACITY AND IRON AND % [id number] 00:00:00* Test Item Value Reference Range Interpretation Comme nts IRON, SERUM (test code = 2222) 12 UG/DL UNSATURATED IBC (test code = 61153) 496 UG/DL CALC TOTAL IBC (test code = 2076) 508 UG/DL CALC % IRON SAT (test code = 207) 2 % Jacobo Shubham WittCBC W/AUTO [id number] 00:00:00* Test Item Value Reference Range Interpretation [...] (test code = 1016) (NOTE) Jacobo Jalloh [id number] 00:00:00* Test Item Value Reference Range Interpretation Comme nts TSH (test code = 2821) 5.4 UIU/ML Jacobo [id number] 00:00:00* Test Item Value Reference Range Interpretation Comme nts FERRITIN (test code = 2075) 2 NG/ML Jacobo WittIRON BINDING CAPACITY AND IRON AND % [id number] 00:00:00* Test Item Value Reference Range Interpretation Comme nts IRON, SERUM (test code = 2222) 12 UG/DL UNSATURATED IBC (test code = 72678) 496 UG/DL CALC TOTAL IBC (test code = 2077) 508 UG/DL CALC % IRON SAT (test code = 2079) 2 % Jacobo WittCBC W/AUTO [id number] 00:00:00* Test Item Value Reference Range Interpretation [...] COMMENTS (test code = 1016) (NOTE) Jacobo [id number] 00:00:00* Test Item Value Reference Range Interpretation Comme nts TSH (test code = 2821) 5.4 UIU/ML Jacobo F [id number] 00:00:00* Test Item Value Reference Range Interpretation Comme nts FERRITIN (test code = 2074) 2 NG/ML Jacobo F AustinIRON BINDING CAPACITY AND IRON AND % [id number] 00:00:00* Test Item Value Reference Range Interpretation Comme nts IRON, SERUM (test code = 2) 12 UG/DL UNSATURATED IBC (test code = 40467) 496 UG/DL CALC TOTAL IBC (test code = 2076) 508 UG/DL CALC % IRON SAT (test code = 9) 2 % Jacobo F AustinIRON BINDING CAPACITY AND IRON AND % [id number] 00:00:00* Test Item Value Reference Range Interpretation Comme nts IRON, SERUM (test code = 2221) 12 UG/DL UNSATURATED IBC (test code = 34045) 496 UG/DL CALC TOTAL IBC (test code = 2076) 508 UG/DL CALC % IRON SAT (test code = 9) 2 % CBC W/AUTO [id number] 00:00:00* Test Item Value Reference Range Interpretation [...] K/UL COMMENTS (test code = 1016) (NOTE) [id number] 00:00:00* Test Item Value Reference Range Interpretation Comme nts FERRITIN (test code = 2075) 2 NG/ML IRON BINDING CAPACITY AND IRON AND % [id number] 00:00:00* Test Item Value Reference Range Interpretation Comme nts IRON, SERUM (test code = 2221) 12 UG/DL UNSATURATED IBC (test code = ) 496 UG/DL CALC TOTAL IBC (test code = 2076) 508 UG/DL CALC % IRON SAT (test code = 2078) 2 % CBC W/AUTO [id number] 00:00:00* Test Item Value Reference Range Interpretation [...] K/UL COMMENTS (test code = 1016) (NOTE) [id number] 00:00:00* Test Item Value Reference Range Interpretation Comme nts TSH (test code = 282) 5.4 UIU/ML [id number] 00:00:00* Test Item Value Reference Range Interpretation Comme nts TSH (test code = 2821) 5.4 UIU/ML [id number] 00:00:00* Test Item Value Reference Range Interpretation Comme nts FERRITIN (test code = 2075) 2 NG/ML IRON BINDING CAPACITY AND IRON AND % [id number] 00:00:00* Test Item Value Reference Range Interpretation Comme nts IRON, SERUM (test code = 2221) 12 UG/DL UNSATURATED IBC (test code = 39598) 496 UG/DL CALC TOTAL IBC (test code = 2076) 508 UG/DL CALC % IRON SAT (test code = 2078) 2 % CBC W/AUTO [id number] 00:00:00* Test Item Value Reference Range Interpretation [...] K/UL COMMENTS (test code = 1016) (NOTE) [id number] 00:00:00* Test Item Value Reference Range Interpretation Comme nts TSH (test code = 2821) 5.4 UIU/ML [id number] 00:00:00* Test Item Value Reference Range Interpretation Comme nts FERRITIN (test code = 2075) 2 NG/ML IRON BINDING CAPACITY AND IRON AND % [id number] 00:00:00* Test Item Value Reference Range Interpretation Comme nts IRON, SERUM (test code = 2222) 12 UG/DL UNSATURATED IBC (test code = 45994) 496 UG/DL CALC TOTAL IBC (test code = 2077) 508 UG/DL CALC % IRON SAT (test code = 2079) 2 % CBC W/AUTO [id number] 00:00:00* Test Item Value Reference Range Interpretation [...] K/UL COMMENTS (test code = 1016) (NOTE) [id number] 00:00:00* Test Item Value Reference Range Interpretation Comme nts TSH (test code = 2821) 5.4 UIU/ML [id number] 00:00:00* Test Item Value Reference Range Interpretation Comme nts FERRITIN (test code = 5) 2 NG/ML CBC W/AUTO [id number] 00:00:00* Test Item Value Reference Range Interpretation [...] COMMENTS (test code = 1016) (NOTE) Jacobo WittIRON BINDING CAPACITY AND IRON AND % [id number] 00:00:00* Test Item Value Reference Range Interpretation Comme nts IRON, SERUM (test code = 2222) 12 UG/DL UNSATURATED IBC (test code = 82230) 496 UG/DL CALC TOTAL IBC (test code = 2076) 508 UG/DL CALC % IRON SAT (test code = 2078) 2 % CBC W/AUTO [id number] 00:00:00* Test Item Value Reference Range Interpretation [...] K/UL COMMENTS (test code = 1016) (NOTE) [id number] 00:00:00* Test Item Value Reference Range Interpretation Comme nts TSH (test code = 2821) 5.4 UIU/ML [id number] 00:00:00* Test Item Value Reference Range Interpretation Comme nts FERRITIN (test code = 2075) 2 NG/ML [id number] 00:00:00* Test Item Value Reference Range Interpretation Comme nts TSH (test code = 2821) 5.4 UIU/ML Jacobo F AustinIRON BINDING CAPACITY AND IRON AND % [id number] 00:00:00* Test Item Value Reference Range Interpretation Comme nts IRON, SERUM (test code = 2222) 12 UG/DL UNSATURATED IBC (test code = 51827) 496 UG/DL CALC TOTAL IBC (test code = 207) 508 UG/DL CALC % IRON SAT (test code = 2079) 2 % CBC W/AUTO [id number] 00:00:00* Test Item Value Reference Range Interpretation [...] K/UL COMMENTS (test code = 1016) (NOTE) [id number] 00:00:00* Test Item Value Reference Range Interpretation Comme nts FERRITIN (test code = 2075) 2 NG/ML [id number] 00:00:00* Test Item Value Reference Range Interpretation Comme nts TSH (test code = 2821) 5.4 UIU/ML GLYCATED HEMOGLOBIN [REFLEX]2016-08-26 00:00:00* Test Item Value Reference Range Interpretation Comme nts GLYCATED HEMOGLOBIN (test co de = 20894) 4.5 % AVERAGE BLOOD GLUCOSE (test code = 05013) 82 mg/dL Jacobo Jalloh AustinGLYCATED HEMOGLOBIN [REFLEX]2016-08-26 00:00:00* Test Item Value Reference Range Interpretation Comme nts GLYCATED HEMOGLOBIN (test co de = 34391) 4.5 % AVERAGE BLOOD GLUCOSE (test code = 45349) 82 mg/dL Jacobo Jalloh AustinGLYCATED HEMOGLOBIN [REFLEX]2016-08-26 00:00:00* Test Item Value Reference Range Interpretation Comme nts GLYCATED HEMOGLOBIN (test co de = 63836) 4.5 % AVERAGE BLOOD GLUCOSE (test code = 40517) 82 mg/dL Jacobo Jalloh AustinGLYCATED HEMOGLOBIN [REFLEX]2016-08-26 00:00:00* Test Item Value Reference Range Interpretation Comme nts GLYCATED HEMOGLOBIN (test co de = 79246) 4.5 % AVERAGE BLOOD GLUCOSE (test code = 23535) 82 mg/dL GLYCATED HEMOGLOBIN [REFLEX]2016-08-26 00:00:00* Test Item Value Reference Range Interpretation Comme nts GLYCATED HEMOGLOBIN (test co de = 64884) 4.5 % AVERAGE BLOOD GLUCOSE (test code = 90438) 82 mg/dL GLYCATED HEMOGLOBIN [REFLEX]2016-08-26 00:00:00* Test Item Value Reference Range Interpretation Comme nts GLYCATED HEMOGLOBIN (test co de = 52762) 4.5 % AVERAGE BLOOD GLUCOSE (test code = 30981) 82 mg/dL GLYCATED HEMOGLOBIN [REFLEX]2016-08-26 00:00:00* Test Item Value Reference Range Interpretation Comme nts GLYCATED HEMOGLOBIN (test co de = 26532) 4.5 % AVERAGE BLOOD GLUCOSE (test code = 91066) 82 mg/dL GLYCATED HEMOGLOBIN [REFLEX]2016-08-26 00:00:00* Test Item Value Reference Range Interpretation Comme nts GLYCATED HEMOGLOBIN (test co de = 38889) 4.5 % AVERAGE BLOOD GLUCOSE (test code = 71955) 82 mg/dL GLYCATED HEMOGLOBIN [REFLEX]2016-08-26 00:00:00* Test Item Value Reference Range Interpretation Comme nts GLYCATED HEMOGLOBIN (test co de = 44553) 4.5 % AVERAGE BLOOD GLUCOSE (test code = 76872) 82 mg/dL COMPREHENSIVE METABOLIC [id number] 00:00:00* Test Item Value Reference Range Interpretation Comme nts GLUCOSE (test code = 2217) 98 MG/DL BUN (test code = 2208) 11 MG/DL CREATININE (test code = 2214) 0.65 MG/DL eGFR AMER. (test cod e = 61864) 135 ML/MIN/1.73 eGFR NON- AMER. (test code = 81739) 117 ML/MIN/1.73 CALC BUN/CREAT (test code = [...] (test code = 2219) 13 U/L LIPID [id number] 00:00:00* Test Item Value Reference Range Interpretation Comme nts CHOLESTEROL (test code = 2210) 148 MG/DL TRIGLYCERIDES (test code = 2232) 103 MG/DL HDL CHOLESTEROL (test code = 2220) 40 MG/DL CALC LDL CHOL (test code = 2237) 87 MG/DL RISK RATIO LDL/HDL (test cod e = 2238) 2.19 RATIO THYROID II PROFILE (T3U, T4, T7, TSH)2016-08-25 00:00:00* Test Item Value Reference Range Interpretation Comme nts T3 UPTAKE (test code = 2817) 27.1 % T4 (THYROXINE) (test code = 2819) 4.2 UG/DL CALCULATED T7 (FTI) (test co de = 2820) 1.14 TSH (test code = 2821) 4.4 UIU/ML Jacobo WittCOMPREHENSIVE METABOLIC [id number] 00:00:00* Test Item Value Reference Range Interpretation Comme nts GLUCOSE (test code = 2217) 98 MG/DL BUN (test code = 2208) 11 MG/DL CREATININE (test code = 2214) 0.65 MG/DL eGFR AMER. (test cod e = 41211) 135 ML/MIN/1.73 eGFR NON- AMER. (test code = 53886) 117 ML/MIN/1.73 CALC BUN/CREAT (test code = [...] = 2219) 13 U/L Jacobo Jalloh AustinLIPID [id number] 00:00:00* Test Item Value Reference Range Interpretation Comme nts CHOLESTEROL (test code = 2210) 148 MG/DL TRIGLYCERIDES (test code = 2232) 103 MG/DL HDL CHOLESTEROL (test code = 2220) 40 MG/DL CALC LDL CHOL (test code = 2237) 87 MG/DL RISK RATIO LDL/HDL (test cod e = 2238) 2.19 RATIO Jacobo WittCBC W/AUTO [id number] 00:00:00* Test Item Value Reference Range Interpretation [...] (test code = 1016) (NOTE) Jacobo WittHEMOGLOBIN [id number] 00:00:00* Test Item Value Reference Range Interpretation Comme nts HEMOGLOBIN A1c (test code = 75372) TEST NOT PERFORMED % Jacobo WittTHYROID II PROFILE (T3U, T4, T7, TSH)2016-08-25 00:00:00* Test Item Value Reference Range Interpretation Comme nts T3 UPTAKE (test code = 2817) 27.1 % T4 (THYROXINE) (test code = 2819) 4.2 UG/DL CALCULATED T7 (FTI) (test co de = 2820) 1.14 TSH (test code = 2821) 4.4 UIU/ML Jacobo WittCOMPREHENSIVE METABOLIC [id number] 00:00:00* Test Item Value Reference Range Interpretation Comme nts GLUCOSE (test code = 2217) 98 MG/DL BUN (test code = 2208) 11 MG/DL CREATININE (test code = 2214) 0.65 MG/DL eGFR AMER. (test cod e = 76634) 135 ML/MIN/1.73 eGFR NON- AMER. (test code = 70256) 117 ML/MIN/1.73 CALC BUN/CREAT (test code = [...] code = 2219) 13 U/L Jacobo WittLIPID [id number] 00:00:00* Test Item Value Reference Range Interpretation Comme nts CHOLESTEROL (test code = 2210) 148 MG/DL TRIGLYCERIDES (test code = 2232) 103 MG/DL HDL CHOLESTEROL (test code = 2220) 40 MG/DL CALC LDL CHOL (test code = 2237) 87 MG/DL RISK RATIO LDL/HDL (test cod e = 2238) 2.19 RATIO Jacobo WittCBC W/AUTO [id number] 00:00:00* Test Item Value Reference Range Interpretation [...] (test code = 1016) (NOTE) Jacobo WittHEMOGLOBIN [id number] 00:00:00* Test Item Value Reference Range Interpretation Comme nts HEMOGLOBIN A1c (test code = 25986) TEST NOT PERFORMED % Jacobo WittTHYROID II PROFILE (T3U, T4, T7, TSH)2016-08-25 00:00:00* Test Item Value Reference Range Interpretation Comme nts T3 UPTAKE (test code = 2817) 27.1 % T4 (THYROXINE) (test code = 2819) 4.2 UG/DL CALCULATED T7 (FTI) (test co de = 2820) 1.14 TSH (test code = 2821) 4.4 UIU/ML Jacobo WittCOMPREHENSIVE METABOLIC [id number] 00:00:00* Test Item Value Reference Range Interpretation Comme nts GLUCOSE (test code = 2217) 98 MG/DL BUN (test code = 2208) 11 MG/DL CREATININE (test code = 2214) 0.65 MG/DL eGFR AMER. (test cod e = 34537) 135 ML/MIN/1.73 eGFR NON- AMER. (test code = 55174) 117 ML/MIN/1.73 CALC BUN/CREAT (test code = [...] code = 2219) 13 U/L Jacobo WittLIPID [id number] 00:00:00* Test Item Value Reference Range Interpretation Comme nts CHOLESTEROL (test code = 2210) 148 MG/DL TRIGLYCERIDES (test code = 2232) 103 MG/DL HDL CHOLESTEROL (test code = 2220) 40 MG/DL CALC LDL CHOL (test code = 2237) 87 MG/DL RISK RATIO LDL/HDL (test cod e = 2238) 2.19 RATIO Jacobo WittCOMPREHENSIVE METABOLIC [id number] 00:00:00* Test Item Value Reference Range Interpretation Comme nts GLUCOSE (test code = 2217) 98 MG/DL BUN (test code = 2208) 11 MG/DL CREATININE (test code = 2214) 0.65 MG/DL eGFR AMER. (test cod e = 26746) 135 ML/MIN/1.73 eGFR NON- AMER. (test code = 28603) 117 ML/MIN/1.73 CALC BUN/CREAT (test code = [...] (test code = 2219) 13 U/L LIPID [id number] 00:00:00* Test Item Value Reference Range Interpretation Comme nts CHOLESTEROL (test code = 2210) 148 MG/DL TRIGLYCERIDES (test code = 2232) 103 MG/DL HDL CHOLESTEROL (test code = 2220) 40 MG/DL CALC LDL CHOL (test code = 2237) 87 MG/DL RISK RATIO LDL/HDL (test cod e = 2238) 2.19 RATIO CBC W/AUTO [id number] 00:00:00* Test Item Value Reference Range Interpretation [...] (test code = 1016) (NOTE) CBC W/AUTO [id number] 00:00:00* Test Item Value Reference Range Interpretation [...] COMMENTS (test code = 1016) (NOTE) HEMOGLOBIN [id number] 00:00:00* Test Item Value Reference Range Interpretation Comme [facility] HEMOGLOBIN A1c (test code = 92979) TEST NOT PERFORMED % THYROID II PROFILE (T3U, T4, T7, TSH)2016-08-25 00:00:00* Test Item Value Reference Range Interpretation Comme nts T3 UPTAKE (test code = 2817) 27.1 % T4 (THYROXINE) (test code = 2819) 4.2 UG/DL CALCULATED T7 (FTI) (test co de = 2820) 1.14 TSH (test code = 2821) 4.4 UIU/ML HEMOGLOBIN [id number] 00:00:00* Test Item Value Reference Range Interpretation Comme nts HEMOGLOBIN A1c (test code = 29972) TEST NOT PERFORMED % THYROID II PROFILE (T3U, T4, T7, TSH)2016-08-25 00:00:00* Test Item Value Reference Range Interpretation Comme nts T3 UPTAKE (test code = 2817) 27.1 % T4 (THYROXINE) (test code = 2819) 4.2 UG/DL CALCULATED T7 (FTI) (test co de = 2820) 1.14 TSH (test code = 2821) 4.4 UIU/ML COMPREHENSIVE METABOLIC [id number] 00:00:00* Test Item Value Reference Range Interpretation Comme nts GLUCOSE (test code = 2217) 98 MG/DL BUN (test code = 2208) 11 MG/DL CREATININE (test code = 2214) 0.65 MG/DL eGFR AMER. (test cod e = 51656) 135 ML/MIN/1.73 eGFR NON- AMER. (test code = 40293) 117 ML/MIN/1.73 CALC BUN/CREAT (test code = [...] (test code = 2219) 13 U/L LIPID [id number] 00:00:00* Test Item Value Reference Range Interpretation Comme nts CHOLESTEROL (test code = 2210) 148 MG/DL TRIGLYCERIDES (test code = 2232) 103 MG/DL HDL CHOLESTEROL (test code = 2220) 40 MG/DL CALC LDL CHOL (test code = 2237) 87 MG/DL RISK RATIO LDL/HDL (test cod e = 2238) 2.19 RATIO CBC W/AUTO [id number] 00:00:00* Test Item Value Reference Range Interpretation [...] COMMENTS (test code = 1016) (NOTE) HEMOGLOBIN [id number] 00:00:00* Test Item Value Reference Range Interpretation Comme nts HEMOGLOBIN A1c (test code = 73334) TEST NOT PERFORMED % THYROID II PROFILE (T3U, T4, T7, TSH)2016-08-25 00:00:00* Test Item Value Reference Range Interpretation Comme nts T3 UPTAKE (test code = 2817) 27.1 % T4 (THYROXINE) (test code = 2819) 4.2 UG/DL CALCULATED T7 (FTI) (test co de = 2820) 1.14 TSH (test code = 2821) 4.4 UIU/ML COMPREHENSIVE METABOLIC [id number] 00:00:00* Test Item Value Reference Range Interpretation Comme nts GLUCOSE (test code = 2217) 98 MG/DL BUN (test code = 2208) 11 MG/DL CREATININE (test code = 2214) 0.65 MG/DL eGFR AMER. (test cod e = 65220) 135 ML/MIN/1.73 eGFR NON- AMER. (test code = 04577) 117 ML/MIN/1.73 CALC BUN/CREAT (test code = [...] (test code = 2219) 13 U/L LIPID [id number] 00:00:00* Test Item Value Reference Range Interpretation Comme nts CHOLESTEROL (test code = 2210) 148 MG/DL TRIGLYCERIDES (test code = 2232) 103 MG/DL HDL CHOLESTEROL (test code = 2220) 40 MG/DL CALC LDL CHOL (test code = 2237) 87 MG/DL RISK RATIO LDL/HDL (test cod e = 2238) 2.19 RATIO CBC W/AUTO [id number] 00:00:00* Test Item Value Reference Range Interpretation [...] COMMENTS (test code = 1016) (NOTE) HEMOGLOBIN [id number] 00:00:00* Test Item Value Reference Range Interpretation Comme nts HEMOGLOBIN A1c (test code = 87885) TEST NOT PERFORMED % CBC W/AUTO [id number] 00:00:00* Test Item Value Reference Range Interpretation [...] Jalloh AustinTHYROID II PROFILE (T3U, T4, T7, TSH)2016-08-25 00:00:00* Test Item Value Reference Range Interpretation Comme nts T3 UPTAKE (test code = 2817) 27.1 % T4 (THYROXINE) (test code = 2819) 4.2 UG/DL CALCULATED T7 (FTI) (test co de = 2820) 1.14 TSH (test code = 2821) 4.4 UIU/ML COMPREHENSIVE METABOLIC [id number] 00:00:00* Test Item Value Reference Range Interpretation Comme nts GLUCOSE (test code = 2217) 98 MG/DL BUN (test code = 2208) 11 MG/DL CREATININE (test code = 2214) 0.65 MG/DL eGFR AMER. (test cod e = 55191) 135 ML/MIN/1.73 eGFR NON- AMER. (test code = 17354) 117 ML/MIN/1.73 CALC BUN/CREAT (test code = [...] (test code = 2219) 13 U/L LIPID [id number] 00:00:00* Test Item Value Reference Range Interpretation Comme nts CHOLESTEROL (test code = 2210) 148 MG/DL TRIGLYCERIDES (test code = 2232) 103 MG/DL HDL CHOLESTEROL (test code = 2220) 40 MG/DL CALC LDL CHOL (test code = 2237) 87 MG/DL RISK RATIO LDL/HDL (test cod e = 2238) 2.19 RATIO CBC W/AUTO [id number] 00:00:00* Test Item Value Reference Range Interpretation [...] COMMENTS (test code = 1016) (NOTE) HEMOGLOBIN [id number] 00:00:00* Test Item Value Reference Range Interpretation Comme [facility] HEMOGLOBIN A1c (test code = 75953) TEST NOT PERFORMED % THYROID II PROFILE (T3U, T4, T7, TSH)2016-08-25 00:00:00* Test Item Value Reference Range Interpretation Comme nts T3 UPTAKE (test code = 2817) 27.1 % T4 (THYROXINE) (test code = 2819) 4.2 UG/DL CALCULATED T7 (FTI) (test co de = 2820) 1.14 TSH (test code = 2821) 4.4 UIU/ML COMPREHENSIVE METABOLIC [id number] 00:00:00* Test Item Value Reference Range Interpretation Comme nts GLUCOSE (test code = 2217) 98 MG/DL BUN (test code = 2208) 11 MG/DL CREATININE (test code = 2214) 0.65 MG/DL eGFR AMER. (test cod e = 23864) 135 ML/MIN/1.73 eGFR NON- AMER. (test code = 90381) 117 ML/MIN/1.73 CALC BUN/CREAT (test code = [...] (test code = 2219) 13 U/L LIPID [id number] 00:00:00* Test Item Value Reference Range Interpretation Comme nts CHOLESTEROL (test code = 2210) 148 MG/DL TRIGLYCERIDES (test code = 2232) 103 MG/DL HDL CHOLESTEROL (test code = 2220) 40 MG/DL CALC LDL CHOL (test code = 2237) 87 MG/DL RISK RATIO LDL/HDL (test cod e = 2238) 2.19 RATIO HEMOGLOBIN [id number] 00:00:00* Test Item Value Reference Range Interpretation Comme nts HEMOGLOBIN A1c (test code = 56229) TEST NOT PERFORMED % Jacobo WittJovanny W/AUTO [id number] 00:00:00* Test Item Value Reference Range Interpretation [...] COMMENTS (test code = 1016) (NOTE) HEMOGLOBIN [id number] 00:00:00* Test Item Value Reference Range Interpretation Comme nts HEMOGLOBIN A1c (test code = 56819) TEST NOT PERFORMED % THYROID II PROFILE (T3U, T4, T7, TSH)2016-08-25 00:00:00* Test Item Value Reference Range Interpretation Comme nts T3 UPTAKE (test code = 2817) 27.1 % T4 (THYROXINE) (test code = 2819) 4.2 UG/DL CALCULATED T7 (FTI) (test co de = 2820) 1.14 TSH (test code = 2821) 4.4 UIU/ML
[2024-11-03 13:06] LABS: Absolute Basophils 0.1 K/uL (0-0.5); Absolute Eosinophils 0.1 K/uL (0-0.5); Absolute Lymphocytes (CBC) 1.9 K/uL (0.7-4.9); Absolute Monocytes 0.5 K/uL (0.1-1.3); Absolute Neutrophil 3.6 K/uL (1.8-8.0); Eosinophils % 1.6 % (0-4.4); Hematocrit 44.1 % (36.0-45.0); Hemoglobin 15.2 g/dL (12.0-15.0); Lymphocytes % 30.3 % (15.3-44.8); MCH 28.9 pg (27.0-35.0); MCHC 34.4 g/dL (32.0-36.0); MCV 84.2 fL (80-100); MPV 9.4 fL (7.6-11.3); Monocytes % 8.3 % (3.3-12.3); Neutrophils % 58.8 % (41.7-73.7); Platelets 251 thou/uL (152-406); RBC Red Blood Cell Count 5.24 M/uL (3.86-4.86); Red Cell Distribution Width 13.8 % (12.1-15.2)
[2024-11-03 13:23] LABS: Albumin 3.4 g/dL (3.4-5.0); Albumin/Globulin Ratio 0.8 (1.1-1.8); Anion Gap 6.8 mEq/L (5.0-15.0); Bilirubin Total 0.6 mg/dL (0.2-1.0); Globulin 4.4 g/dL (2.3-3.5); Potassium 3.8 mEq/L (3.5-5.1); Protein, Total 7.8 g/dL (6.4-8.2)
[2024-11-03] MEDS ORDERED: DIPHENOX/ATROP SULF 1 TAB PO ONE (13:57)
[2024-11-03] MEDS ORDERED: NA CHLORIDE 0.9% 1,000 ML ONE (13:57)
[2024-11-03 14:05] LABS: Specific Gravity 1.026 (1.005-1.030)
[2024-11-03 14:32] LABS: Calcium Oxalate Crystals- Ur Few /HPF (None Seen); Specific Gravity 1.026 (1.005-1.030); Sqamous Epithelial <5 /HPF (None Seen); Urine Bacteria None Seen /HPF (<20); Urine Bilirubin NEGATIVE (Negative); Urine Blood Negative (Negative); Urine Clarity Extremely Turbid (Clear); Urine Color Yellow (Yellow); Urine Crystals Unidentified Few /HPF (None Seen); Urine Culture Reflex Order NOT NEEDED; Urine Glucose NEGATIVE (Negative); Urine Ketones NEGATIVE (Negative); Urine Microscopic Reflex YN ORDER UMIC; Urine Mucus Slight /HPF (None Seen); Urine Nitrite NEGATIVE (Negative); Urine Protein NEGATIVE (Negative); Urine RBC <5 /HPF (None Seen); Urine Urobilinogen Normal (Normal); Urine WBC <5 /HPF (<5); Urine Yeast (Budding) Trace /HPF (None Seen)
--- NOTE | 2024-11-03 14:39 | RAD REPORT ---
EXAMINATION: CT ABDOMEN AND PELVIS WITH CONTRAST CLINICAL INDICATION: Female, 39 years old.diarrhea;Abd pain TECHNIQUE: CT abdomen and pelvis was performed, after the administration of IV contrast, as per [facility] protocol. Axial, sagittal and coronal reconstructions were obtained. One or more of the following dose reduction techniques were used: Automated exposure control, adjustment of the mA and/o r kV according to patient size, and/or iterative reconstruction. Unless otherwise specified, incidental findings do not require dedicated imaging follow-up. [id number]. COMPARISON: 08/14/2017 FINDINGS: LOWER CHEST: No acute process identified.No significant pericardial effusion. UPPER GI: No significant abnormality. LIVER: No significant focal abnormality. GALLBLADDER/BILE DUCTS: Cholelithiasis.?No pericholecystic and premature changes. PANCREAS: No mass, ductal dilation, or markus-pancreatic fluid. SPLEEN: Unremarkable. ADRENALS: No adrenal masses. KIDNEYS AND URETERS: No hydronephrosis.No suspicious renal mass. ABDOMINAL AORTA AND OTHER VESSELS: Normal caliber aorta and IVC. PERITONEUM: No abnormal free fluid. No free air. LYMPH NODES: No pathologic lymphadenopathy. ABDOMINAL WALL: Small fat containing umbilical hernia. SMALL BOWEL/COLON: Small bowel has normal course and caliber. No colonic wall thickening or pericolon ic inflammatory changes. URINARY BLADDER: Underdistended but grossly unremarkable. REPRODUCTIVE ORGANS: No pathologic process. MUSCULOSKELETAL: No acute or suspicious osseous abnormality. ADDITIONAL FINDINGS: None. IMPRESSION: No acute or significant abnormalities seen in the abdomen or pelvis. Cholelithiasis without CT eviden ce of acute cholecystitis.
--- NOTE | 2024-11-03 14:56 | EDPHYS ---
Physician Documentation [facility] Name: Charity Colon Age: 39 yrs Sex: Female : 1985 Arrival Date: 11/03/2024 Time: 12:11 Bed DX1 Private MD: ED Physician Jose Antonio Cannon HPI: 11/03 13:08 This 39 yrs old Female presents to ER via Ambulatory with complaints of rn Diarrhea. 13:08 The patient presents to the emergency department with diarrhea, abdominal pain. rn 13:09 Onset: The symptoms/episode began/occurred 4 day(s) ago. Possible causes: unknown. The rn symptoms are aggravated by nothing. The symptoms are alleviated by nothing. Severity of symptoms: At their worst the symptoms were moderate in the emergency department the symptoms are unchanged. The patient has not experienced similar symptoms in the past. Patient reports 4 days of nonbloody diarrhea, about 5 watery episodes a day. No fever or chills. No weight loss. No vomiting. Reports upper abdominal pain. No sick contacts or travel.. 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 - Infectious Disease History:: Denies. - Social history:: Smoking status: Patient denies any tobacco usage or history of. - Family history:: not pertinent. - Hospitalizations: : No recent hospitalization is reported. ROS: 13:09 Constitutional: Negative for fever, chills, and weight loss, Cardiovascular: Negative rn for chest pain, palpitations, and edema, Respiratory: Negative for shortness of breath, cough, wheezing, and pleuritic chest pain, Abdomen/GI: Positive for diarrhea and abdominal pain Back: Negative for injury and pain, : Negative for injury, bleeding, discharge, and swelling, MS/Extremity: Negative for injury and deformity, Skin: Negative for injury, rash, and discoloration, Neuro: Positive for generalized weakness and malaise Exam: 13:09 Constitutional: This is a well developed, well nourished patient who is awake, alert, rn and in no acute distress. Head/Face: Normocephalic, atraumatic. ENT: Dry mucous membranes Cardiovascular: Regular rate and rhythm . No pulse deficits. Respiratory: No increased work of breathing, no retractions or nasal flaring. Abdomen/GI: Soft, mild epigastric tenderness and left upper quadrant tenderness MS/ Extremity: Pulses equal, no cyanosis. Neuro: Awake and alert, GCS 15 Vital Signs: 12:41 BP 111 / 81; Pulse 78; Resp 16; Temp 97.2; Pulse Ox 99% ; Weight 113.4 kg; Height 5 ft. db 4 in. ; 12:41 Body Mass Index 42.91 (113.40 kg, 162.56 cm) db MDM: 12:29 Medical Screening Exam initiated rn 14:53 Differential diagnosis: Nonspecific abd pain, viral gastroenteritis, gastroenteritis, rn Colitis. Data reviewed: vital signs, nurses notes, lab test result(s), radiologic studies, CT scan, and as a result, I will discharge patient. Counseling: I had a detailed discussion with the patient and/or guardian regarding the historical points, exam findings, and any diagnostic results supporting the discharge/admit diagnosis, lab results, radiology results, the need for outpatient follow up, to return to the emergency department if symptoms worsen or persist or if there are any questions or concerns that arise at home. Special discussion: Based on the patient's Hx, exam, and Dx evaluation, there is no indication for emergent surgery or inpatient Tx. It is understood by the patient/guardian that if the Sx's persist or worsen they need to return immediately for re-evaluation. I discussed with the patient/guardian in detail that at this point there is no indication for admission to the hospital. It is understood, however, that if the symptoms persist or worsen the patient needs to return immediately for re-evaluation. Based on the history and exam findings, there is no indication for further emergent testing or inpatient evaluation. ED course: No acute findings in CT. Symptoms consistent with a colitis. Will discharge home with antibiotics. Patient also has gallbladder stones but no evidence of cholecystitis. No right upper quadrant tenderness or Christine sign. I have personally reviewed all of the results, including but not limited to blood tests and imaging deemed necessary to safely discharge this patient at this time. All results given to patient. I personally went over all the results with the patient and answered all questions. Patient will follow-up with PCP and or specialist as discussed. Return precautions given and understood.. 11/03 12:51 Order name: CBC with Diff; Complete Time: 13:10 rn 11/03 12:51 Order name: CMP; Complete Time: 14:48 rn 11/03 12:51 Order name: Lipase; Complete Time: 14:48 rn 11/03 12:52 Order name: Urinalysis w/ reflexes; Complete Time: 14:48 rn 11/03 12:52 Order name: Test, Urine; Complete Time: 14:48 rn 11/03 12:51 Order name: CT Abd/Pelvis - IV Contrast Only; Complete Time: 14:48 rn 11/03 12:51 Order name: IV Saline Lock; Complete Time: 13:00 rn 11/03 12:51 Order name: Labs collected and sent; Complete Time: 13:00 rn Administered Medications: 14:01 Drug: NS 0.9% IV 1000 ml IV at 1 bolus Per protocol; to be given as a bolus over 60 hb minutes Route: IV; Rate: 1 bolus; Site: left antecubital; 15:10 Follow up: Response: No adverse reaction; IV Status: Completed infusion; IV Intake: hb 1000ml 14:01 Drug: Diphenoxylate-Atropine PO 2 tabs PO once Route: PO; hb 15:00 Follow up: Response: No adverse reaction hb 15:10 Drug: Amoxicillin-Clavulanate PO 875 mg PO once Route: PO; hb 15:20 Follow up: Response: Medication administered at discharge. 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 EDMS EDMS 12: 12:51 COMPREHENSIVE METABOLIC PANEL+C.LAB.BRZ ordered. EDMS EDMS 12: 12:51 LIPASE+C.LAB.BRZ ordered. EDNJ EDMS 12: 12:51 Abdomen Pelvis W Con+CT.RAD.BRZ ordered. EDNJ EDMS 14:54 14:53 ED course: No acute findings in CT. Symptoms consistent with a colitis. 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 Patient also has gallbladder stones but no evidence of cholecystitis. No right upper quadrant tenderness or Christine sign.. rn
--- NOTE | 2024-11-03 14:56 | ER ---
Nurse's Notes [facility] Name: Charity Colon Age: 39 yrs Sex: Female : 1985 Arrival Date: 11/03/2024 Time: 12:11 Bed DX1 Private MD: Diagnosis: Diarrhea, unspecified;Infectious gastroenteritis and colitis, unspecified Presentation: 11/03 12:41 Chief complaint: Patient states: DIARRHEA SINCE MONDAY. GAS YESTERDAY AND UPPER ABD db PAIN. TRIED OTC MEDICATION NOT HELPING. Coronavirus screen: Client denies travel out of the [place] in the last 14 days. At this time, the client does not indicate any symptoms associated with coronavirus-19. Ebola Screen: Patient negative for fever greater than or equal to 101.5 degrees Fahrenheit, and additional compatible Ebola Virus Disease symptoms Patient denies exposure to infectious person. Patient denies travel to an Ebola-affected area in the 21 days before illness onset. No symptoms or risks identified at this time. Initial Sepsis Screen: Does the patient meet any 2 criteria? No. Patient's initial sepsis screen is negative. Does the patient have a suspected source of infection? No. Patient's initial sepsis screen is negative. Risk Assessment: Do you want to hurt yourself or someone else? Patient reports no desire to harm self or others. Onset of symptoms was November 03, 2024. 12:41 Method Of Arrival: Ambulatory db 12:41 Acuity: TAISHA 3 db Triage Assessment: 12:43 General: Appears in no apparent distress. comfortable, Behavior is calm, cooperative. db Pain: Complains of pain in abdomen. GI: Reports upper abdominal pain, diarrhea. 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 - Infectious Disease History:: Denies. - Social history:: Smoking status: Patient denies any tobacco usage or history of. - Family history:: not pertinent. - Hospitalizations: : No recent hospitalization is reported. Screenin:02 [facility] ED Fall Risk Assessment (Adult) History of falling in the last 3 months, hb including since admission No falls in past 3 months (0 pts) Confusion or Disorientation No (0 pts) Intoxicated or Sedated No (0 pts) Impaired Gait No (0 pts) Mobility Assist Device Used No (0 pt) Altered Elimination No (0 pt) Score/Fall Risk Level 0 - 2 = Low Risk Oriented to surroundings, Maintained a safe environment, Educated pt \T\ family on fall prevention, incl call for assistance when getting out of bed. Abuse screen: Denies threats or abuse. Denies injuries from another. Nutritional screening: No deficits noted. Tuberculosis screening: No symptoms or risk factors identified. Assessment: 14:02 General: Appears in no apparent distress. Behavior is calm, cooperative. Pain: Denies hb pain. Neuro: Level of Consciousness is awake, alert, obeys commands, Oriented to person, place, time, situation. Cardiovascular: Patient's skin is warm and dry. Respiratory: Respiratory effort is even, unlabored, Respiratory pattern is regular, symmetrical. GI: Reports diarrhea. : No signs and/or symptoms were reported regarding the genitourinary system. EENT: No signs and/or symptoms were reported regarding the EENT system. Derm: Skin is pink, warm \T\ dry. Musculoskeletal: No signs and/or symptoms reported regarding the musculoskeletal system. 15:00 Reassessment: Patient appears in no apparent distress at this time. Patient and/or hb family updated on plan of care and expected duration. Pain level reassessed. Patient is alert, oriented x 3, equal unlabored respirations, skin warm/dry/pink. Vital Signs: 12:41 BP 111 / 81; Pulse 78; Resp 16; Temp 97.2; Pulse Ox 99% ; Weight 113.4 kg; Height 5 ft. db 4 in. ; 12:41 Body Mass Index 42.91 (113.40 kg, 162.56 cm) db ED Course: 12:22 Patient arrived in ED. al6 12:29 Jose Antonio Cannon MD is Attending Physician. rn 12:43 Triage completed. db 12:43 Arm band placed on. db 13:00 Initial lab(s) drawn, by me, sent to lab. Inserted saline lock: 20 gauge in left bc6 antecubital area, using aseptic technique. Blood collected. Flushed with 10 mL NS. 13:55 Amita Chavez, RN is Primary Nurse. hb 14:02 Patient has correct armband on for positive identification. Provided Education on: hb tests, result times, medications, bathroom location . 14:02 No provider procedures requiring assistance completed. hb 14:30 CT Abd/Pelvis - IV Contrast Only In Process Unspecified. EDMS 15:21 IV discontinued, intact, bleeding controlled, No redness/swelling at site. Pressure hb dressing applied. Administered Medications: 14:01 Drug: NS 0.9% IV 1000 ml IV at 1 bolus Per protocol; to be given as a bolus over 60 hb minutes Route: IV; Rate: 1 bolus; Site: left antecubital; 15:10 Follow up: Response: No adverse reaction; IV Status: Completed infusion; IV Intake: hb 1000ml 14:01 Drug: Diphenoxylate-Atropine PO 2 tabs PO once Route: PO; hb 15:00 Follow up: Response: No adverse reaction hb 15:10 Drug: Amoxicillin-Clavulanate PO 875 mg PO once Route: PO; hb 15:20 Follow up: Response: Medication administered at discharge. hb Medication: 14:02 VIS not applicable for this client. hb Intake: 15:10 IV: 1000ml; Total: 1000ml. hb Outcome: 14:55 Discharge ordered by . rn 15:21 Discharged to home ambulatory, hb 15:21 Condition: stable 15:21 Discharge instructions given to patient, Instructed on discharge instructions, follow up and referral plans. medication usage, Demonstrated understanding of instructions, follow-up care, medications, Prescriptions given X 1, 15:22 Patient left the ED. hb Signatures: Dispatcher [employer] EDMS Jose Antonio Cannon MD MD rn Baxter, Heather, Vianey Da Silva RN, RN RN db Alexandra Robbins 6 Diana Ventura al6 Corrections: (The following items were deleted from the chart) 12:44 12:41 Pulse 78bpm; Resp 16bpm; Pulse Ox 99%; Temp 97.2F; 113.4 kg; Height 5 ft. 4 in.; db BMI: 42.9; db 12:44 12:43 GI: Reports lower abdominal pain, diarrhea, db db
[2024-11-03] MEDS ORDERED: AMOX/K CLAV 875 MG TAB ONE (15:06)
[2024-11-03 17:29] VITALS: BP 111/81; TEMP 97.2; O2SAT 99
== END 2024-11-03 15:22 | disposition home or self-care (01) ==
LOC: ER 12:11
DX: A09 Infectious gastroenteritis and colitis, unspecified (principal)
CPT/HCPCS: 36415; 74177; 80053; 81001; 81025; 83690; 85025; 96360; 99284; J7030; Q9967